=== PATIENT | female | born 1945 | race American Indian/Alaskan Native ===

== ENCOUNTER 2016-11-07 14:46 | Inpatient (IN) | payer MEDICARE ==
[2016-11-07] MEDS ORDERED: DUONEB *Not for PRN Use IH ONE (16:09)
[2016-11-07 16:43] LABS: Basophils % (Auto) 0.3 % (0.0-1.8); Eosinophils % (Auto) 0.1 % (0.0-4.3); Hematocrit 30.8 % (30.3-42.9); Hemoglobin 10.2 gm/dl (10.1-14.3); Mean Corpuscular HGB Conc 33 % (30-34); Mean Corpuscular Hemoglobin 32 pg (28-32); Mean Corpuscular Volume 97 fl (79-97); Platelet Count 182 K/mm3 (140-440); Red Blood Count 3.18 M/mm3 (3.65-5.03); Red Cell Distribution Width 14.2 % (13.2-15.2); White Blood Count 6.1 K/mm3 (4.5-11.0)
[2016-11-07 16:53] LABS: Bilirubin,Urine NEG (Negative); Blood,Urine SM (Negative); Ketones,Urine NEG (Negative); Leukocyte Esterase,Urine NEG (Negative); Nitrite,Urine NEG (Negative); Urobilinogen,Urine < 2.0 mg/dL (<2.0)
[2016-11-07 16:55] LABS: BUN/Creatinine Ratio 14.37; Calcium 9.3 mg/dL (8.4-10.2)
[2016-11-07 16:56] LABS: Chloride 103.5 mmol/L (98-107); Potassium 4.9 mmol/L (3.6-5.0)
[2016-11-07 17:05] LABS: RBC,Urine < 1.0 /HPF (0.0-6.0)
[2016-11-07] MEDS ORDERED: PROVENTIL IH ONE (17:50)
--- NOTE | 2016-11-07 18:00 | XRay Report ---
FINAL REPORT EXAM: XR CHEST 1V AP HISTORY: sob TECHNIQUE: Single-view chest PRIORS: None. FINDINGS: Lung volumes are diminished. There is subtle asymmetric increased opacity in the right upper lobe. The heart is enlarged. No acute osseous abnormality is identified. IMPRESSION: 1. Cardiomegaly. This may be exaggerated by diminished lung volumes. 2. There is subtle asymmetric increased opacity in the right upper lobe. This could be secondary to overlapping osseous structures, but underlying infiltrate or other pulmonary lesion is not excluded. This can be further assessed with CT of the chest.
--- NOTE | 2016-11-07 18:20 | Nuclear Medicine Report ---
FINAL REPORT PROCEDURE: Nuclear medicine ventilation and perfusion lung scan. TECHNIQUE: Ventilation imaging was done in the posterior projection using 15 millicuries of xenon 133 gas. Perfusion imaging was done in multiple projections using 5 millicuries of technetium 99 M maa. HISTORY: Shortness of breath, elevated D-dimer. COMPARISON: Comparison chest radiograph 11/07/2016. FINDINGS: The technologist reports that the patient was extremely short of breath and did not breathe well on the ventilation portion of the test. The ventilation images are limited. There is grossly symmetrical ventilation with no obvious trapping of xenon gas. The perfusion images are only mildly inhomogeneous. There are no significant perfusion defects identified. The scanned carries a very low probability for pulmonary embolism. IMPRESSION: Limited study. Very low probability of pulmonary embolism.
[2016-11-07] MEDS ORDERED: MAGNESIUM SULFATE 2GM/50ML 2 GM/50 ML BAG IV ONE (18:24)
[2016-11-07 18:25] LABS: ISTAT Base Excess -10; ISTAT HCO3 15.6; ISTAT PH 7.371 (7.35-7.45); ISTAT PO2 124 (80-105); ISTAT SO2 99; ISTAT TCO2 16
[2016-11-07] MEDS ORDERED: HEPARIN 10,000 UNITS/10 ML IV ONE (18:29)
[2016-11-07] MEDS ORDERED: LASIX IV ONE ×2 (18:29→19:23)
--- NOTE | 2016-11-07 18:35 | Emergency Department Report ---
HPI - General Chief Complaint: Nausea/Vomiting/Diarrhea Time Seen by Provider: 11/07/16 15:58 - HPI HPI: This is a 70-year-old Afro-Indian female presents the emergency department by EMS from her home by EMS with complaint of 2 days of diarrhea and possible dehydration. She has home health care but [facility] in for evaluation. Once the patient got here she appeared to have some shortness of breath and was noticed to have lower extremity swelling. The patient does admit to shortness of breath but denies any chest pain, fever, nausea or vomiting. She appears to have a past medical history of CVA, diabetes and hypertension. She was not given anything for symptoms prior to presentation or in route. She denies any abdominal pain but does admit to the loose stool. ED Past Medical Hx - Past Medical History Previous Medical History?: Yes Hx Hypertension: Yes Hx Asthma: No Hx COPD: No Hx Dementia: Yes - Surgical History Past Surgical History?: Yes Additional Surgical History: Hysterectomy - Social History Smoking Status: Never Smoker Substance Use Type: None - Medications Home Medications: Home Medications Medication Instructions Recorded Confirmed Last Taken Type Alendronate Sodium 70 mg PO QWEEK 02/25/15 02/25/15 02/18/15 History Aspirin BABY CHEW TAB 81 mg PO DAILY 02/25/15 02/25/15 02/24/15 History Calcium + Vitamin D3 Gummies 600 mg PO DAILY 02/25/15 02/25/15 02/24/15 History Carvedilol 25 mg PO BID 02/25/15 02/25/15 02/25/15 History Hydralazine HCl 50 mg PO TID 02/25/15 02/25/15 02/25/15 History Memantine (Nf) [Namenda (Nf)] 10 mg PO DAILY 02/25/15 02/25/15 02/25/15 History Potassium Chloride [Klor-Con M20] 20 meq PO DAILY 02/25/15 02/25/15 02/25/15 History Simvastatin 20 mg PO DAILY 02/25/15 02/25/15 02/24/15 History Valsartan 320 mg PO DAILY 02/25/15 02/25/15 02/25/15 History amLODIPine 10 mg PO DAILY 02/25/15 02/25/15 02/25/15 History traMADol [Ultram] 50 mg PO Q4HR PRN #12 tablet 03/25/16 Unknown Rx ED Review of Systems ROS: Stated complaint: DIARRHEA Other details as noted in HPI Comment: All other systems reviewed and negative Constitutional: denies: chills, fever Eyes: denies: eye pain, eye discharge, vision change ENT: denies: ear pain, throat pain Respiratory: shortness of breath. denies: cough Cardiovascular: edema. denies: chest pain Gastrointestinal: diarrhea. denies: abdominal pain Genitourinary: denies: urgency, dysuria, discharge Musculoskeletal: denies: back pain, joint swelling, arthralgia Skin: denies: rash, lesions Neurological: denies: headache, weakness, paresthesias Physical Exam - Physical Exam Vital Signs: Vital Signs 11/07/16 11/07/16 11/07/16 15:29 15:31 15:41 Temperature Pulse Rate 126 H 118 H Pulse Rate [ Posterior Bilateral Throughout] Respiratory 27 H 24 Rate Respiratory Rate [Posterior Bilateral Throughout] Blood Pressure 149/92 149/92 Blood Pressure [Left] O2 Sat by Pulse 94 93 99 Oximetry 11/07/16 11/07/16 11/07/16 15:43 15:45 15:51 Temperature 97.9 F Pulse Rate 123 H 117 H Pulse Rate [ Posterior Bilateral Throughout] Respiratory 18 20 34 H Rate Respiratory Rate [Posterior Bilateral Throughout] Blood Pressure 149/92 Blood Pressure 142/92 [Left] O2 Sat by Pulse 95 95 99 Oximetry 11/07/16 11/07/16 11/07/16 16:01 16:11 16:21 Temperature Pulse Rate 119 H 120 H 118 H Pulse Rate [ Posterior Bilateral Throughout] Respiratory 31 H 29 H 31 H Rate Respiratory Rate [Posterior Bilateral Throughout] Blood Pressure 149/92 149/92 149/92 Blood Pressure [Left] O2 Sat by Pulse 98 98 97 Oximetry 11/07/16 11/07/16 11/07/16 16:31 16:37 17:04 Temperature Pulse Rate 118 H Pulse Rate [ 119 H 124 H Posterior Bilateral Throughout] Respiratory 29 H Rate Respiratory 18 18 Rate [Posterior Bilateral Throughout] Blood Pressure 149/92 Blood Pressure [Left] O2 Sat by Pulse 98 Oximetry 11/07/16 18:15 Temperature Pulse Rate Pulse Rate [ 122 H Posterior Bilateral Throughout] Respiratory Rate Respiratory 24 Rate [Posterior Bilateral Throughout] Blood Pressure Blood Pressure [Left] O2 Sat by Pulse Oximetry Physical Exam: GENERAL: The patient is well-developed well-nourished. HEENT: Normocephalic. Atraumatic. Extraocular motions are intact. Patient has moist mucous membranes. Pupils equal reactive to light bilaterally. NECK: Supple. Trach is midline. CHEST/LUNGS: Coarse breath sounds without chest. There is tachypnea but no accessory muscle use. There is no respiratory distress noted. HEART/CARDIOVASCULAR: Regular. There is mild tachycardia there is no gallop rub or murmur. ABDOMEN: Abdomen is soft, nontender. Patient has normal bowel sounds. There is no abdominal distention. SKIN: There is 2-3+ pitting edema to the bilateral lower extremities worst in the distal portions. NEURO: The patient is awake, alert. The patient is cooperative. There are no motor or sensory deficits seen. Patient follows commands. Withdraws to painful stimuli. There is some difficulty speaking or slurred speech but the patient says it's because she does not have any teeth or denture in place and patient is able to verbalize and/or express herself. MUSCULOSKELETAL: There is no tenderness or deformity. There is no limitation range of motion. There is no evidence of acute injury. Radial pulse was 2 over 4 bilaterally. ED Course Vital Signs 11/07/16 11/07/16 11/07/16 15:29 15:31 15:41 Temperature Pulse Rate 126 H 118 H Pulse Rate [ Posterior Bilateral Throughout] Respiratory 27 H 24 Rate Respiratory Rate [Posterior Bilateral Throughout] Blood Pressure 149/92 149/92 Blood Pressure [Left] O2 Sat by Pulse 94 93 99 Oximetry 11/07/16 11/07/16 11/07/16 15:43 15:45 15:51 Temperature 97.9 F Pulse Rate 123 H 117 H Pulse Rate [ Posterior Bilateral Throughout] Respiratory 18 20 34 H Rate Respiratory Rate [Posterior Bilateral Throughout] Blood Pressure 149/92 Blood Pressure 142/92 [Left] O2 Sat by Pulse 95 95 99 Oximetry 11/07/16 11/07/16 11/07/16 16:01 16:11 16:21 Temperature Pulse Rate 119 H 120 H 118 H Pulse Rate [ Posterior Bilateral Throughout] Respiratory 31 H 29 H 31 H Rate Respiratory Rate [Posterior Bilateral Throughout] Blood Pressure 149/92 149/92 149/92 Blood Pressure [Left] O2 Sat by Pulse 98 98 97 Oximetry 07/11/07/16 11/07/16 16:31 16:37 17:04 Temperature Pulse Rate 118 H Pulse Rate [ 119 H 124 H Posterior Bilateral Throughout] Respiratory 29 H Rate Respiratory 18 18 Rate [Posterior Bilateral Throughout] Blood Pressure 149/92 Blood Pressure [Left] O2 Sat by Pulse 98 Oximetry 11/07/16 18:15 Temperature Pulse Rate Pulse Rate [ 122 H Posterior Bilateral Throughout] Respiratory Rate Respiratory 24 Rate [Posterior Bilateral Throughout] Blood Pressure Blood Pressure [Left] O2 Sat by Pulse Oximetry - Reevaluation(s) Reevaluation #1: Patient is having worsening respiratory status. Given Lasix for for him overload. Given Solu-Medrol and magnesium. She was placed on a Ventimask but now will be placed on a BiPAP. If she does not improve then she may need intubation. Admitting hospitalist is aware 11/07/16 18:40 - ABG Interpretation Ph: [phone] PCO2: 27 PO2: 63 Bicarbonate: 15 Interpretation: respiratory alkalosis, metabolic acidosis, other (hypoxemia) ED Medical Decision Making - Lab Data Result diagrams: 11/08/16 06:45 11/08/16 06:45 - EKG Data -: EKG Interpreted by Me EKG shows normal: sinus rhythm, axis (left axis deviation), intervals, QRS complexes (LVH), ST-T waves (nonspecific ST-T waves) Rate: tachycardia (119 bpm) - EKG Data When compared to previous EKG there are: previous EKG unavailable Interpretation: other (sinus tachycardia with PVCs, left axis deviation, LVH, nonspecific ST-T changes) 11/07/16 18:35 Repeat EKG at 1826 shows sinus tachycardia at 123 bpm, left axis deviation, LVH , there is some slight ST depressions to the lateral leads. There is some changes in the fact that QRS is now up and V4 and V6 when it was previously pointed down. - Radiology Data Radiology results: report reviewed, image reviewed interpreted by me: Chest x-ray shows some cardiomegaly and pulmonary vascular congestion. Ventilation perfusion scan is negative or low probability for pulmonary embolism. - Medical Decision Making This is a 70-year-old female who originally was brought in either from a personal fpc or from her home with some home health care but she was brought in urgently with the complaint of some generalized weakness and diarrhea. Once the patient got to the emergency department she showed some signs of volume overload and mild shortness of breath. However during the patient's ED course she appeared to become more short of breath and eventually began appearing to have some respiratory distress. The patient's labs showed some abnormalities with a low CO2 level, significantly elevated troponin, renal insufficiency/failure, elevated BNP levels. ABG shows respiratory alkalosis with metabolic acidosis with some hypoxia/hypoxemia. Patient has never been here before to compare her labs or EKG. EKG shows a sinus tachycardia with PVCs , nonspecific T-wave changes, LVH but does not appear to have a morphology consistent with ST elevation MA. The patient was placed on nasal cannula upon arrival but upon return from the VQ scan she appeared more short of breath so she was placed on a Venturi mask. She never had any hypoxia but she still continued to have increased work of breathing so the patient was then placed on a BiPAP machine. Chest x-ray shows volume overload. VQ scan did not show any signs of pulmonary embolism or at least was low probability. Patient received IV Lasix push and eventually was started on a nitroglycerin drip. I spoke to the hospitalist and the patient was admitted to the ICU. While the patient was still in the emergency department the rest of case was signed out to my colleague, Dr Berger, who was gracious enough to speak with cardiology and the torch shearer who accepted the patient's plan for admission to the ICU and supportive care. Patient was placed on heparin second or 2 the elevated troponin. - Differential Diagnosis MA, PE, CHF, pneumonia Critical Care Time: Yes Critical care time in (mins) excluding proc time.: 35 Critical care attestation.: If time is entered above; I have spent that time in minutes in the direct care of this critically ill patient, excluding procedure time. Critical care time was spent on this patient and during her initial evaluation, multiple re- evaluations, titration of oxygen support from nasal cannula to Venturi mask to BiPAP, ordering and interpretation of labs, ordering and interpretation of imaging, and disposition planning and conversation with hospitalist service. Critical Care Time: 35 mins ED Disposition Clinical Impression: NSTEMI (non-ST elevated myocardial infarction), Acute pulmonary edema, CKD ( chronic kidney disease) stage 4, GFR 15-29 ml/min Acute respiratory failure Qualifiers: Respiratory failure complication: hypoxia Qualified Code(s): J96.01 - Acute respiratory failure with hypoxia Disposition: DC-09 OP ADMIT IP TO THIS HOSP Is pt being admited?: Yes Condition: Serious
[2016-11-07] MEDS ORDERED: LEVAQUIN 750MG/150ML 750 MG/150 ML BAG IV ONE (18:47)
[2016-11-07 18:50] LABS: INR 0.99 (0.87-1.13)
[2016-11-07 18:51] LABS: Partial Thromboplastin Time 34.7 Sec. (24.2-36.6)
[2016-11-07] MEDS ORDERED: HEPARIN/ 0.45% NACL-25,000 UNIT/500 ML 25,000 UNIT/500 ML BAG IV SCH (19:00)
[2016-11-07] MEDS: TRIDIL DRIP 50MG/250ML 50 MG/250 ML BOTTLE IV SCH (19:02)
--- NOTE | 2016-11-07 19:26 | Event Note ---
Date: 11/07/16 Received signout from physician, Dr. Bey. Patient's laboratory studies, radiology studies reviewed, and addition to EKG, and aphysical examination. I am concerned that the patient has either cardiorenal syndrome, or decompensated congestive heart failure at this time. The patient is currently on BiPAP therapy. Nitroglycerin drip has been ordered, and at my verbal instruction, the nurse gave a post of 300 g nitroglycerin. The case is discussed with the Critical care physician, Dr. Heller, who agrees with placement to the intensive care unit. The case is discussed with the light armored vehicle officer on-call, Dr. Dean, and the patient' s laboratory studies, x-ray of chest, EKG, and physical exam findings have been discussed with him, and he agrees with placement into the intensive care unit, agrees with supportive care, and recommends nephrology consult. The case is discussed with nephrology on-call, Dr. Butt, who agrees with current plan, recommends Lasix, 60 mg twice daily, recommends an additional 40 mg of Lasix now, and agrees to follow as a consult. Vital Signs 11/07/16 11/07/16 11/07/16 15:29 15:31 15:41 Temperature Pulse Rate 126 H 118 H Pulse Rate [ Posterior Bilateral Throughout] Respiratory 27 H 24 Rate Respiratory Rate [Posterior Bilateral Throughout] Blood Pressure 149/92 149/92 Blood Pressure [Left] O2 Sat by Pulse 94 93 99 Oximetry 11/07/16 11/07/16 11/07/16 15:43 15:45 15:51 Temperature 97.9 F Pulse Rate 123 H 117 H Pulse Rate [ Posterior Bilateral Throughout] Respiratory 18 20 34 H Rate Respiratory Rate [Posterior Bilateral Throughout] Blood Pressure 149/92 Blood Pressure 142/92 [Left] O2 Sat by Pulse 95 95 99 Oximetry 11/07/16 11/07/16 11/07/16 16:01 16:11 16:21 Temperature Pulse Rate 119 H 120 H 118 H Pulse Rate [ Posterior Bilateral Throughout] Respiratory 31 H 29 H 31 H Rate Respiratory Rate [Posterior Bilateral Throughout] Blood Pressure 149/92 149/92 149/92 Blood Pressure [Left] O2 Sat by Pulse 98 98 97 Oximetry 11/07/16 11/07/16 11/07/16 16:31 16:37 16:41 Temperature Pulse Rate 118 H 127 H Pulse Rate [ 119 H Posterior Bilateral Throughout] Respiratory 29 H 33 H Rate Respiratory 18 Rate [Posterior Bilateral Throughout] Blood Pressure 149/92 159/87 Blood Pressure [Left] O2 Sat by Pulse 98 99 Oximetry 11/07/16 11/07/16 11/07/16 16:51 17:01 17:04 Temperature Pulse Rate 124 H 126 H Pulse Rate [ 124 H Posterior Bilateral Throughout] Respiratory 29 H 28 H Rate Respiratory 18 Rate [Posterior Bilateral Throughout] Blood Pressure 159/87 163/83 Blood Pressure [Left] O2 Sat by Pulse 98 96 Oximetry 11/07/16 11/07/16 11/07/16 17:11 17:53 18:00 Temperature Pulse Rate 121 H 123 H Pulse Rate [ Posterior Bilateral Throughout] Respiratory 27 H 26 H Rate Respiratory Rate [Posterior Bilateral Throughout] Blood Pressure 163/83 163/83 166/103 Blood Pressure [Left] O2 Sat by Pulse 98 96 98 Oximetry 11/07/16 11/07/16 11/07/16 18:11 18:15 18:21 Temperature Pulse Rate 121 H 130 H Pulse Rate [ 122 H Posterior Bilateral Throughout] Respiratory 28 H 40 H Rate Respiratory 24 Rate [Posterior Bilateral Throughout] Blood Pressure 166/103 163/83 Blood Pressure [Left] O2 Sat by Pulse 99 100 Oximetry 11/07/16 11/07/16 11/07/16 18:31 18:41 18:45 Temperature Pulse Rate 139 H 126 H Pulse Rate [ 124 H Posterior Bilateral Throughout] Respiratory 35 H 34 H Rate Respiratory 26 H Rate [Posterior Bilateral Throughout] Blood Pressure 160/88 160/88 Blood Pressure [Left] O2 Sat by Pulse 98 97 Oximetry 11/07/16 11/07/16 11/07/16 18:51 18:52 19:21 Temperature Pulse Rate 121 H 119 H 121 H Pulse Rate [ Posterior Bilateral Throughout] Respiratory 36 H 36 H 29 H Rate Respiratory Rate [Posterior Bilateral Throughout] Blood Pressure 160/88 160/88 159/67 Blood Pressure [Left] O2 Sat by Pulse 97 98 99 Oximetry Lab Results 11/07/16 11/07/16 11/07/16 Range/Units 16:00 16:35 16:35 WBC 6.1 (4.5-11.0) K/mm3 RBC 3.18 L (3.65-5.03) M/mm3 Hgb 10.2 (10.1-14.3) gm/dl Hct 30.8 (30.3-42.9) % MCV 97 (79-97) fl MCH 32 (28-32) pg MCHC 33 (30-34) % RDW 14.2 (13.2-15.2) % Plt Count 182 (140-440) K/mm3 Lymph % (Auto) 23.6 (13.4-35.0) % Stokes % (Auto) 8.2 H (0.0-7.3) % Eos % (Auto) 0.1 (0.0-4.3) % Baso % (Auto) 0.3 (0.0-1.8) % Lymph # 1.4 (1.2-5.4) K/mm3 Stokes # 0.5 (0.0-0.8) K/mm3 Eos # 0.0 (0.0-0.4) K/mm3 Baso # 0.0 (0.0-0.1) K/mm3 Seg Neutrophils % 67.8 (40.0-70.0) % Seg Neutrophils # 4.1 (1.8-7.7) K/mm3 PT (12.2-14.9) Sec. INR (0.87-1.13) APTT (24.2-36.6) Sec. D-Dimer (0-234) ng/mlDDU POC ABG pH (7.35-7.45) POC ABG pCO2 (35-45) POC ABG pO2 (80-105) POC ABG HCO3 POC ABG Total CO2 POC ABG O2 Sat POC ABG Base Excess FiO2 % Sodium 138 (137-145) mmol/L Potassium 4.9 (3.6-5.0) mmol/L Chloride 103.5 (98-107) mmol/L Carbon Dioxide 16 L (22-30) mmol/L Anion Gap 23 mmol/L BUN 46 H (7-17) mg/dL Creatinine 3.2 H (0.7-1.2) mg/dL Estimated GFR 17 ml/min BUN/Creatinine Ratio 14.37 % Glucose 101 H (65-100) mg/dL Lactic Acid (0.7-2.0) mmol/L Calcium 9.3 (8.4-10.2) mg/dL Troponin T (0.00-0.029) ng/mL NT-Pro-B Natriuret Pep (0-900) pg/mL Triglycerides (2-149) mg/dL Cholesterol (50-199) mg/dL LDL Cholesterol Direct (50-130) mg/dL HDL Cholesterol (40-59) mg/dL Cholesterol/HDL Ratio % Urine Color Crystal (Yellow) Urine Turbidity Cloudy (Clear) Urine pH 5.0 (5.0-7.0) Ur Specific Nebo 1.019 (1.003-1.030) Urine Protein 100 mg/dl (Negative) mg/dL Urine Glucose (UA) Neg (Negative) mg/dL Urine Ketones Neg (Negative) mg/dL Urine Blood Sm (Negative) Urine Nitrite Neg (Negative) Urine Bilirubin Neg (Negative) Urine Urobilinogen < 2.0 (<2.0) mg/dL Ur Leukocyte Esterase Neg (Negative) Urine WBC (Auto) 3.0 (0.0-6.0) /HPF Urine RBC (Auto) < 1.0 (0.0-6.0) /HPF 11/07/16 11/07/16 11/07/16 Range/Units 16:35 16:35 16:35 WBC (4.5-11.0) K/mm3 RBC (3.65-5.03) M/mm3 Hgb (10.1-14.3) gm/dl Hct (30.3-42.9) % MCV (79-97) fl MCH (28-32) pg MCHC (30-34) % RDW (13.2-15.2) % Plt Count (140-440) K/mm3 Lymph % (Auto) (13.4-35.0) % Stokes % (Auto) (0.0-7.3) % Eos % (Auto) (0.0-4.3) % Baso % (Auto) (0.0-1.8) % Lymph # (1.2-5.4) K/mm3 Stokes # (0.0-0.8) K/mm3 Eos # (0.0-0.4) K/mm3 Baso # (0.0-0.1) K/mm3 Seg Neutrophils % (40.0-70.0) % Seg Neutrophils # (1.8-7.7) K/mm3 PT (12.2-14.9) Sec. INR (0.87-1.13) APTT (24.2-36.6) Sec. D-Dimer 1575.53 H (0-234) ng/mlDDU POC ABG pH (7.35-7.45) POC ABG pCO2 (35-45) POC ABG pO2 (80-105) POC ABG HCO3 POC ABG Total CO2 POC ABG O2 Sat POC ABG Base Excess FiO2 % Sodium (137-145) mmol/L Potassium (3.6-5.0) mmol/L Chloride (98-107) mmol/L Carbon Dioxide (22-30) mmol/L Anion Gap mmol/L BUN (7-17) mg/dL Creatinine (0.7-1.2) mg/dL Estimated GFR ml/min BUN/Creatinine Ratio % Glucose (65-100) mg/dL Lactic Acid (0.7-2.0) mmol/L Calcium (8.4-10.2) mg/dL Troponin T 6.900 H* (0.00-0.029) ng/mL NT-Pro-B Natriuret Pep 12460 H (0-900) pg/mL Triglycerides 69 (2-149) mg/dL Cholesterol 129 (50-199) mg/dL LDL Cholesterol Direct 56 (50-130) mg/dL HDL Cholesterol 60 H (40-59) mg/dL Cholesterol/HDL Ratio 2.15 % Urine Color (Yellow) Urine Turbidity (Clear) Urine pH (5.0-7.0) Ur Specific Nebo (1.003-1.030) Urine Protein (Negative) mg/dL Urine Glucose (UA) (Negative) mg/dL Urine Ketones (Negative) mg/dL Urine Blood (Negative) Urine Nitrite (Negative) Urine Bilirubin (Negative) Urine Urobilinogen (<2.0) mg/dL Ur Leukocyte Esterase (Negative) Urine WBC (Auto) (0.0-6.0) /HPF Urine RBC (Auto) (0.0-6.0) /HPF 11/07/16 11/07/16 11/07/16 Range/Units 16:35 18:14 18:49 WBC (4.5-11.0) K/mm3 RBC (3.65-5.03) M/mm3 Hgb (10.1-14.3) gm/dl Hct (30.3-42.9) % MCV (79-97) fl MCH (28-32) pg MCHC (30-34) % RDW (13.2-15.2) % Plt Count (140-440) K/mm3 Lymph % (Auto) (13.4-35.0) % Stokes % (Auto) (0.0-7.3) % Eos % (Auto) (0.0-4.3) % Baso % (Auto) (0.0-1.8) % Lymph # (1.2-5.4) K/mm3 Stokes # (0.0-0.8) K/mm3 Eos # (0.0-0.4) K/mm3 Baso # (0.0-0.1) K/mm3 Seg Neutrophils % (40.0-70.0) % Seg Neutrophils # (1.8-7.7) K/mm3 PT 13.0 (12.2-14.9) Sec. INR 0.99 (0.87-1.13) APTT 34.7 (24.2-36.6) Sec. D-Dimer (0-234) ng/mlDDU POC ABG pH 7.371 (7.35-7.45) POC ABG pCO2 27.0 L (35-45) POC ABG pO2 124 H (80-105) POC ABG HCO3 15.6 POC ABG Total CO2 16 POC ABG O2 Sat 99 POC ABG Base Excess -10 FiO2 35 % Sodium (137-145) mmol/L Potassium (3.6-5.0) mmol/L Chloride (98-107) mmol/L Carbon Dioxide (22-30) mmol/L Anion Gap mmol/L BUN (7-17) mg/dL Creatinine (0.7-1.2) mg/dL Estimated GFR ml/min BUN/Creatinine Ratio % Glucose (65-100) mg/dL Lactic Acid 1.80 (0.7-2.0) mmol/L Calcium (8.4-10.2) mg/dL Troponin T (0.00-0.029) ng/mL NT-Pro-B Natriuret Pep (0-900) pg/mL Triglycerides (2-149) mg/dL Cholesterol (50-199) mg/dL LDL Cholesterol Direct (50-130) mg/dL HDL Cholesterol (40-59) mg/dL Cholesterol/HDL Ratio % Urine Color (Yellow) Urine Turbidity (Clear) Urine pH (5.0-7.0) Ur Specific Nebo (1.003-1.030) Urine Protein (Negative) mg/dL Urine Glucose (UA) (Negative) mg/dL Urine Ketones (Negative) mg/dL Urine Blood (Negative) Urine Nitrite (Negative) Urine Bilirubin (Negative) Urine Urobilinogen (<2.0) mg/dL Ur Leukocyte Esterase (Negative) Urine WBC (Auto) (0.0-6.0) /HPF Urine RBC (Auto) (0.0-6.0) /HPF
[2016-11-07] MEDS ORDERED: VITAMIN D3 GUMMIES PO SCH (21:15)
[2016-11-07] MEDS ORDERED: CALCIUM PO SCH (21:15)
[2016-11-07] MEDS ORDERED: MILK OF MAGNESIA PO PRN (21:22)
[2016-11-07] MEDS ORDERED: ZOFRAN IV PRN (21:22)
[2016-11-07] MEDS ORDERED: TYLENOL PO PRN (21:22)
[2016-11-07] MEDS ORDERED: DULCOLAX PR PRN (21:22)
[2016-11-07] MEDS ORDERED: DUONEB *Not for PRN Use IH (21:34)
[2016-11-07] MEDS ORDERED: PROVENTIL IH PRN (21:40)
[2016-11-07 22:26] LABS: Creatine Kinase MB 268.6 ng/mL (0.0-4.0)
[2016-11-07] MEDS: NORVASC PO SCH (22:42)
[2016-11-07] MEDS: COREG PO SCH (22:45)
[2016-11-07] MEDS: ZOCOR PO SCH (22:46)
[2016-11-07] MEDS: HEPARIN SUB-Q SCH (22:47)
[2016-11-07] MEDS: K-DUR PO SCH (22:52)
[2016-11-07] MEDS: ZOSYN/NS 2.25 GM/50ML 2.25 GM/50 ML BAG IV SCH (23:13)
[2016-11-08] MEDS: TRIDIL DRIP 50MG/250ML 50 MG/250 ML BOTTLE IV SCH ×3 (01:00→10:01)
[2016-11-08] MEDS: DUONEB *Not for PRN Use IH SCH ×5 (02:10→20:34)
--- NOTE | 2016-11-08 02:26 | Admit Criteria Form ---
Admission Criteria Documentation: PULMONARY DISEASE GRG Clinical Indications for Admission to Inpatient Care ( Place 'X' for any and all applicable criteria): Hospital admission is needed for appropriate care of the patient because of 1 or more of the following(1)(2): [ ]I. Impending or actual respiratory arrest. See Respiratory Failure GRG guideline for severe respiratory disease and long-term mechanical ventilation patients. (3)(4) (5) [ ]II. Severe airflow or ventilation abnormalities (not responsive to emergency and observation care treatment as appropriate) as indicated by 1 or more of the following (6)(7)(8)(9) : [ ]a) PCO2 greater than 42 mm Hg (5.6 kPa) and pH less than 7.35 (new) [ ]b) Documented PCO2 increased more than 5 mm Hg (0.7 kPa) from disease baseline [ ]c) Airflow measurements[A] less than 60% of previous best or predicted (eg, peak expiratory flow rate less than 300 L/min) despite intensive emergent treatment(B) [ ]d) Required respiratory treatments that are performable only in acute inpatient setting [ X]III. Severe respiratory findings (not responsive to emergency and observation care treatment as appropriate) including 1 or more of the following(6)(9)(10): [X ]a) Respiratory distress as indicated by ALL of the following(6)(11) : [X ]i) Patient with 1 or more of the following: [ X]1) Dyspnea (difficulty breathing) [ ]2) Tachypnea [ ]3) Abnormal breathing pattern (eg, chest retractions) [ ]4) Other evidence of difficulty breathing [ X]ii) Evidence of respiratory compromise indicated by 1 or more of the following: [ ]1) Hypoxemia [ ]2) Altered mental status [X ]3) Other evidence of respiratory compromise (eg, pulmonary edema on chest x-ray) [ ]b) Stridor [ ]c) Gross hemoptysis(12) [ ]d) Acute cyanosis [ ]IV. Chronic lung disease with severe deterioration (not responsive to emergency and observation care treatment as appropriate) as indicated by 1 or more of the following(7) (13): [ ]a) SaO2 5% below baseline in patient with chronic hypoxemia [ ]b) New requirement for supplemental oxygen to keep SaO2 at baseline or acceptable level [ ]c) Required supplemental oxygen performable only in acute inpatient setting [ ]d) Severe airflow or ventilation abnormalities [ ]e) Previouslymobile patient unable to walk between rooms [ ]f) Inability to eat or sleep due to dyspnea [ ]g) Altered mental status that is severe or persistent [ ]V. Empyema or lung abscess(14)(15) [ ]Vl. Severe atelectasis or lung collapse(16)(17) [ ]Diane. Tuberculosis requiring inpatient treatment as indicated by 1 or more of the following(18)(19)(20)(21): [ ]a) Diagnosis suspected (eg, symptomatic patient from endemic area or in high-risk population, with abnormal chest imaging) and cannot be ruled out within observation care timeframe (ie, sputum analysis, nucleic acid amplification techniques not rapidly available or not diagnostic) [ ]b) Severely symptomatic patient (eg, Hypoxemia, Hemodynamic instability, Tachypnea) [ ]c) Mlwic-sycq-abxxiyjzo infection suspected in newly diagnosed patient (eg, treatment regimen may require near-term adjustment) [ ]d) Newly diagnosed patient at high-risk of short-term deterioration (eg, HIV positive, frail, immunocompromised, chronic lung disease) [ ]e) High infectivity suspected (eg, laryngeal disease, cavitary pulmonary lesions, ongoing positivity of sputum) and 1 or more of the following: [ ]i) Unexposed household contacts at high risk (eg, immunocompromised, elderly, infants, chronic lung disease) [ ]ii) Patient unable or unwilling to avoid exposing others (eg, significant psychiatric disease, substance abuse, developmental disability) [ ]f) Complication of tuberculosis requiring inpatient treatment (eg , constrictive pericarditis, tubercular meningitis) [ ]g) Hospitalization mandated by public health authority (eg, patient continually noncompliant with directly observed therapy) [ ]VIII. High-risk pulmonary infection as indicated by 1 or more of the following(22)(23)(24)(25): [ ]a) Temperature less than 95 degrees F (35 degrees C) or greater than 103.1 degrees F (39.5 degrees C) [ ]b) Hemodynamic instability [ ]c) Immunocompromised patient (eg, AIDS, post transplant, neutropenic)(26)(27) [ ]d) History of severe COPD(28) [ ]e) History of severely symptomatic congestive heart failure(29) [ ]f) Other high-risk comorbidity (eg, poorly controlled diabetes, cirrhosis, chronic renal insufficiency) [ ]g) Hypoxemia [ ]h) severe stridor (30) [ ]i) Outpatient, observation, or recovery facility therapy has failed, is not appropriate, or is not feasible. [ ]IX. Complications of tracheostomy that remains after emergency or observation level care(31)(32)(33)(34) [ ]X. Respiratory complications of organ transplant (eg, rejection, respiratory failure, respiratory infection)(27) [ ]XI. Severe pulmonary arterial hypertension or pulmonary vascular disease requiring inpatient care indicated by 1 or more of the following(35)(36)(37)(38): [ ]a) Initiation or change of vasodilators (IV, subcutaneous, or inhaled) or other vasoactive medications needed [ ]b) IV anticoagulation needed (eg, immediate anticoagulation necessary, alternatives not appropriate) [ ]c) Arterial or pulmonary artery catheter monitoring needed due to infusion or other treatment [ ]XII. Cystic fibrosis requiring inpatient care as indicated by 1 or more of the following(39)(40): [ ]a) Severe exacerbation that does not respond to intensified home therapy(41) [ ]b) Severe exacerbation with patient unable to perform prescribed treatments at home [ ]c) Pneumonia [ ]d) Pneumothorax(42) [ ]e) Atelectasis [ ]f) Hemoptysis(43) [ ]XIII. Bronchiectasis requiring inpatient care as indicated by 1 or more of the following(44)(45): [ ]a) Respiratory distress [ ]b) Severe exacerbation and outpatient or observation care therapy has failed, is not appropriate, or is not feasible. [ ]XIV. Sarcoidosis requiring inpatient care as indicated by 1 or more of the following(46)(47)(48): [ ]a) Respiratory distress [ ]b) Cardiac involvement with arrhythmia(49) [ ]c) Outpatient or observation care therapy has failed, is not appropriate, or is not feasible. [ ]XV. Intestitial lung disease requiring inpatient care as indicated by 1 or more of the following(50)(51): [ ]a) Respiratory distress [ ]b) Severe exacerbation and outpatient or observation care therapy has failed, is not appropriate, or is not feasible [ ]XVI. Allergic pneumonitis requiring inpatient care as indicated by 1 or more of the following(52): [ ]a) Respiratory distress [ ]b) Acute eosinophilic pneumonia [ ]c) [place] with cardiac involvement [ ]d) Outpatient or observation care therapy has failed, is not appropriate, or is not feasible [ ]XVIl. Severe right heart failure requiring inpatient care as indicated by 1 or more of the following(35)(53)(54): [ ]a) Respiratory distress [ ]b) Debilitating anasarca that remains after emergency or observation level care (eg, tissue [ ]c) breakdown with severe infection, inability to void due to edema) [C](41)(42)(43)(44) [ ]d) Hemodynamic instability [ ]e) Syncope [ ]f) Angina that requires inpatient care (eg, not treatable in emergency or observation level of care) [ ]g) Increasing organ failure (eg, liver congestion with significant and worsening or new elevation of transaminases) [ ]XVIll. Injury requiring inpatient care (medical) as indicated by 1 or more of the following(59)(60)(61) [ ]a) Significant inhalation injury (eg, smoke inhalation, other toxic inhalation)(62)(63)(64) [ ]b) Airway obstruction that remains or is unstable after emergency or observation level care(65)(66) [ ]c) Severe pain requiring acute inpatient management [ ]d) Lung contusion(67) [ ]e) Flail chest(68) [ ]f) Bronchial tree injury [ ]g) Air or fat emboli [ ]h) Other injury not treatable in emergency or observation level care (eg, hemothorax)(55) [ ]XlX. Pulmonary hemorrhage or significant hemoptysis(12)(43)(69) [ ]XXl. Complications of transplanted lung indicated by 1 or more of the following(70)(71) [ ]a) Acute graft rejection requiring inpatient management (eg, intravenous immunosuppression)(72)(73)(74) [ ]b) Failure of transplant lung as indicated by 1 or more of the following(75)(76): [ ]i) Anastomotic leak [ ]ii) Airway ischemia or necrosis [ ]iii) Airway fistula [ ]iv) Obstructing granulation tissue requiring intervention [ ]v) Bronchial stenosis or stricture requiring intervention [ ]vi) Tracheobronchomalacia requiring intervention [ ]vii) Severe airflow or ventilation abnormalities [ ]viii) Severe respiratory findings [ ]c) Infection requiring inpatient management (eg, Hemodynamic instability, need for intravenous antimicrobial treatment)(77)(78)(79)(80)(81)(82 [ ]d) Other complication of transplanted lung (eg, obliterative bronchiolitis, plastic bronchitis, thrombotic microangiopathy, constrictive pericarditis) requiring inpatient management(83)(84)(85)(86)(87) [ ]XXll. Inpatient palliative care needed.[D](88)(89)(90)(91) [ ]XXlll. Pulmonary Disease condition, symptom, or finding for which emergency and observation care have failed or are not considered appropriate. The original [email or web address] content created by Attributor has been revised. The portions of the content which have been revised are identified through the use of italic text or in bold, and [facility] has neither reviewed nor approved the modified material. All other unmodified content is copyright [email or web address] [facility]. Please see references footnoted in the original [facility] [employer] edition 2017 Admission Criteria Met: Yes
[2016-11-08] MEDS: ZOSYN/NS 2.25 GM/50ML 2.25 GM/50 ML BAG IV SCH ×2 (06:26→14:04)
[2016-11-08 07:19] LABS: Basophils % (Auto) 0.1 % (0.0-1.8); Hematocrit 23.3 % (30.3-42.9); Hemoglobin 7.6 gm/dl (10.1-14.3); Mean Corpuscular HGB Conc 33 % (30-34); Mean Corpuscular Hemoglobin 32 pg (28-32); Mean Corpuscular Volume 98 fl (79-97); Platelet Count 144 K/mm3 (140-440); Red Blood Count 2.37 M/mm3 (3.65-5.03); Red Cell Distribution Width 13.9 % (13.2-15.2); White Blood Count 5.6 K/mm3 (4.5-11.0)
[2016-11-08 07:44] LABS: Creatine Kinase MB 182.7 ng/mL (0.0-4.0)
[2016-11-08 07:45] LABS: Albumin 2.5 g/dL (3.9-5); Albumin/Globulin Ratio 0.8 %; BUN/Creatinine Ratio 15.75; Bilirubin,Total 0.4 mg/dL (0.1-1.2); Calcium 8.4 mg/dL (8.4-10.2); Chloride 102.7 mmol/L (98-107); Potassium 4.4 mmol/L (3.6-5.0); Total Protein 5.6 g/dL (6.3-8.2)
[2016-11-08] MEDS: APRESOLINE PO SCH ×3 (08:39→21:44)
--- NOTE | 2016-11-08 08:50 | History and Physical Report ---
History of Present Illness Date of examination: 11/07/16 Date of admission: 11/07/16 21:22 Chief complaint: Nausea vomiting and Diarrhea for 2 days Increasing SOB for 2 days Swelling of leds for 1 week History of present illness: This is a 70-year-old Afro-[place] female presents the emergency department by EMS from her home by EMS with complaint of 2 days of diarrhea and possible dehydration. Once the patient got here she appeared to have some shortness of breath and was noticed to have lower extremity swelling. The patient does admit to shortness of breath but denies any chest pain, or fever She appears to have a past medical history of CVA, diabetes and hypertension. She was not given anything for symptoms prior to presentation or in route. She denies any abdominal pain but does admit to the loose stool. Past Medical Hx - Past Medical History Previous Medical History?: Yes Hx Hypertension: Yes Hx Asthma: No Hx COPD: No Hx Dementia: Yes - Surgical History Past Surgical History?: Yes Additional Surgical History: Hysterectomy - Social History Smoking Status: Never Smoker Substance Use Type: None Fam HX: HTN - Medications Home Medications: Home Medications Medication Instructions Recorded Confirmed Last Taken Type Alendronate Sodium 70 mg PO QWEEK 02/25/15 02/25/15 02/18/15 History Aspirin BABY CHEW TAB 81 mg PO DAILY 02/25/15 02/25/15 02/24/15 History Calcium + Vitamin D3 Gummies 600 mg PO DAILY 02/25/15 02/25/15 02/24/15 History Carvedilol 25 mg PO BID 02/25/15 02/25/15 02/25/15 History Hydralazine HCl 50 mg PO TID 02/25/15 02/25/15 02/25/15 History Memantine (Nf) [Namenda (Nf)] 10 mg PO DAILY 02/25/15 02/25/15 02/25/15 History Potassium Chloride [Klor-Con M20] 20 meq PO DAILY 02/25/15 02/25/15 02/25/15 History Simvastatin 20 mg PO DAILY 02/25/15 02/25/15 02/24/15 History Valsartan 320 mg PO DAILY 02/25/15 02/25/15 02/25/15 History amLODIPine 10 mg PO DAILY 02/25/15 02/25/15 02/25/15 History traMADol [Ultram] 50 mg PO Q4HR PRN #12 tablet 03/25/16 Unknown Rx Review of Systems ROS: Stated complaint: DIARRHEA Other details as noted in HPI Comment: All other systems reviewed and negative Constitutional: denies: chills, fever Eyes: denies: eye pain, eye discharge, vision change ENT: denies: ear pain, throat pain Respiratory: shortness of breath. denies: cough Cardiovascular: edema. denies: chest pain Gastrointestinal: diarrhea. denies: abdominal pain Genitourinary: denies: urgency, dysuria, discharge Musculoskeletal: denies: back pain, joint swelling, arthralgia Skin: denies: rash, lesions Neurological: denies: headache, weakness, paresthesias Medications and Allergies Allergies Allergy/AdvReac Type Severity Reaction Status Date / Time No Known Allergies Allergy Unverified 02/25/15 10:42 Home Medications Medication Instructions Recorded Confirmed Last Taken Type Alendronate Sodium 70 mg PO QWEEK 02/25/15 02/25/15 02/18/15 History Aspirin BABY CHEW TAB 81 mg PO DAILY 02/25/15 02/25/15 02/24/15 History Calcium + Vitamin D3 Gummies 600 mg PO DAILY 02/25/15 02/25/15 02/24/15 History Carvedilol 25 mg PO BID 02/25/15 02/25/15 02/25/15 History Hydralazine HCl 50 mg PO TID 02/25/15 02/25/15 02/25/15 History Memantine (Nf) [Namenda (Nf)] 10 mg PO DAILY 02/25/15 02/25/15 02/25/15 History Potassium Chloride [Klor-Con M20] 20 meq PO DAILY 02/25/15 02/25/15 02/25/15 History Simvastatin 20 mg PO DAILY 02/25/15 02/25/15 02/24/15 History Valsartan 320 mg PO DAILY 02/25/15 02/25/15 02/25/15 History amLODIPine 10 mg PO DAILY 02/25/15 02/25/15 02/25/15 History traMADol [Ultram] 50 mg PO Q4HR PRN #12 tablet 03/25/16 Unknown Rx Active Meds: Active Medications Acetaminophen (Tylenol) 650 mg PO Q4H PRN PRN Reason: Pain MILD(1-3)/Fever >100.5/PAREKH Albuterol (Proventil) 2.5 mg IH Q3HRT PRN PRN Reason: Shortness Of Breath Albuterol/Ipratropium (Duoneb *Not For Prn Use*) 1 ampul IH Q6HRT [facility] Last Admin: 11/08/16 02:10 Dose: 1 ampul Amlodipine Besylate (Norvasc) 10 mg PO DAILY [facility] Last Admin: 11/07/16 22:42 Dose: Not Given Bisacodyl (Dulcolax) 10 mg RI QDAY PRN PRN Reason: Constipation unrelieved by [facility] Calcium/Vitamin D ([place] D 500 Mg-200 Unit) 1 each PO QDAY [facility] Carvedilol (Coreg) 25 mg PO BID [facility] Last Admin: 11/07/16 22:45 Dose: Not Given Heparin Sodium (Porcine) (Heparin) 5,000 unit SUB-Q Q12HR [facility] Last Admin: 11/07/16 22:47 Dose: Not Given Hydralazine HCl (Apresoline) 50 mg PO TID [facility] Last Admin: 11/08/16 08:39 Dose: 50 mg Nitroglycerin/Dextrose (Tridil Drip 50mg/250ml) 50 mg in 250 mls @ 3 mls/hr IV TITR RADHA; 10 MCG/MIN PRN Reason: Protocol Last Admin: 11/08/16 04:42 Dose: 175 mcg/min, 52.5 mls/hr Piperacillin Sod/Tazobactam Sod (Zosyn/Ns 2.25 Gm/50ml) 2.25 gm in 50 mls @ 100 mls/hr IV Q8HR [facility] PRN Reason: Protocol Last Admin: 11/08/16 06:26 Dose: 100 mls/hr Magnesium Hydroxide (Milk Of Magnesia) 30 ml PO Q4H PRN PRN Reason: Constipation Memantine (Namenda Xr) 14 mg PO QDAY [facility] Methylprednisolone Sodium Succinate (Solu-Medrol) 125 mg IV Q8HR [facility] Last Admin: 11/08/16 06:27 Dose: 125 mg Ondansetron HCl (Zofran) 4 mg IV Q8H PRN PRN Reason: N/V unrelieved by Reglan Oxycodone/Acetaminophen (Percocet 5/325) 1 tab PO Q6H PRN PRN Reason: Pain, Moderate (4-6) Potassium Chloride (K-Dur) 20 meq PO DAILY [facility] Last Admin: 11/07/16 22:52 Dose: Not Given Simvastatin (Zocor) 20 mg PO DAILY [facility] Last Admin: 11/07/16 22:46 Dose: Not Given Tramadol HCl (Ultram) 50 mg PO Q4H PRN PRN Reason: Pain Valsartan (Diovan) 320 mg PO DAILY [facility] Zolpidem Tartrate (Ambien) 5 mg PO QHS PRN PRN Reason: Insomnia Exam - Physical Exam Narrative exam: In Moderate resp distress and was put on BIPAP for possible intubation - Constitutional Vitals: Temp Pulse Resp BP Pulse Ox 98.7 F 119 H 19 127/71 100 11/08/16 07:27 11/08/16 08:39 11/08/16 08:00 11/08/16 08:39 11/08/16 08:00 General appearance: Present: severe distress, well-nourished - EENT Eyes: Present: PERRL ENT: hearing intact, clear oral mucosa - Neck Neck: Present: supple, normal ROM - Respiratory Respiratory effort: normal Respiratory: bilateral: rales, rhonchi - Cardiovascular Heart rate: 100 Rhythm: regular Heart Sounds: Present: S1 & S2. Absent: rub, click - Extremities Extremities: no ischemia, pulses symmetrical, No edema (3 +++) Extremity abnormal: edema Peripheral Pulses: within normal limits - Abdominal General gastrointestinal: Present: soft, non-tender, non-distended, normal bowel sounds Female genitourinary: Present: normal - Integumentary Integumentary: Present: clear, warm, dry - Musculoskeletal Musculoskeletal: gait normal, strength equal bilaterally - Psychiatric Psychiatric: appropriate mood/affect, intact judgment & insight - Neurologic Neurologic: CNII-XII intact, moves all extremities Results - Labs CBC & Chem 7: 11/08/16 06:45 11/08/16 06:45 Labs: Laboratory Last Values WBC 5.6 K/mm3 (4.5-11.0) 11/08/16 06:45 RBC 2.37 M/mm3 (3.65-5.03) L 11/08/16 06:45 Hgb 7.6 gm/dl (10.1-14.3) L 11/08/16 06:45 Hct 30.8 % (30.3-42.9) 11/07/16 16:35 MCV 98 fl (79-97) H 11/08/16 06:45 MCH 32 pg (28-32) 11/08/16 06:45 MCHC 33 % (30-34) 11/08/16 06:45 RDW 13.9 % (13.2-15.2) 11/08/16 06:45 Plt Count 144 K/mm3 (140-440) 11/08/16 06:45 Lymph % (Auto) 8.0 % (13.4-35.0) L 11/08/16 06:45 [place] % (Auto) 2.7 % (0.0-7.3) 11/08/16 06:45 Eos % (Auto) 0.0 % (0.0-4.3) 11/08/16 06:45 Baso % (Auto) 0.1 % (0.0-1.8) 11/08/16 06:45 Lymph # 0.5 K/mm3 (1.2-5.4) L 11/08/16 06:45 [place] # 0.1 K/mm3 (0.0-0.8) 11/08/16 06:45 Eos # 0.0 K/mm3 (0.0-0.4) 11/08/16 06:45 Baso # 0.0 K/mm3 (0.0-0.1) 11/08/16 06:45 Seg Neutrophils % 89.2 % (40.0-70.0) H 11/08/16 06:45 Seg Neutrophils # 5.0 K/mm3 (1.8-7.7) 11/08/16 06:45 PT 13.0 Sec. (12.2-14.9) 11/07/16 16:35 INR 0.99 (0.87-1.13) 11/07/16 16:35 APTT 34.7 Sec. (24.2-36.6) 11/07/16 16:35 D-Dimer 1575.53 ng/mlDDU (0-234) H 11/07/16 16:35 POC ABG pH 7.371 (7.35-7.45) 11/07/16 18:14 POC ABG pCO2 27.0 (35-45) L 11/07/16 18:14 POC ABG pO2 124 (80-105) H 11/07/16 18:14 POC ABG HCO3 15.6 11/07/16 18:14 POC ABG Total CO2 16 11/07/16 18:14 POC ABG O2 Sat 99 11/07/16 18:14 POC ABG Base Excess -10 11/07/16 18:14 FiO2 35 % 11/07/16 18:14 Sodium 137 mmol/L (137-145) 11/08/16 06:45 Potassium 4.4 mmol/L (3.6-5.0) 11/08/16 06:45 Chloride 102.7 mmol/L (98-107) 11/08/16 06:45 Carbon Dioxide 17 mmol/L (22-30) L 11/08/16 06:45 Anion Gap 22 mmol/L 11/08/16 06:45 BUN 52 mg/dL (7-17) H 11/08/16 06:45 Creatinine 3.3 mg/dL (0.7-1.2) H 11/08/16 06:45 Estimated GFR 17 ml/min 11/08/16 06:45 BUN/Creatinine Ratio 15.75 % 11/08/16 06:45 Glucose 263 mg/dL (65-100) H 11/08/16 06:45 Hemoglobin A1c 4.8 % (4-6) 11/07/16 16:35 Lactic Acid 1.80 mmol/L (0.7-2.0) 11/07/16 18:49 Calcium 8.4 mg/dL (8.4-10.2) 11/08/16 06:45 Total Bilirubin 0.40 mg/dL (0.1-1.2) 11/08/16 06:45 AST 164 units/L (5-40) H 11/08/16 06:45 ALT 47 units/L (7-56) 11/08/16 06:45 Alkaline Phosphatase 89 units/L (35-129) 11/08/16 06:45 Total Creatine Kinase 1273 units/L (30-135) H 11/08/16 06:45 CK-MB (CK-2) 182.7 ng/mL (0.0-4.0) H 11/08/16 06:45 CK-MB (CK-2) Rel Index 14.3 (0-4) H 11/08/16 06:45 Troponin T 6.920 ng/mL (0.00-0.029) H* 11/07/16 18:36 NT-Pro-B Natriuret Pep 90934 pg/mL (0-900) H 11/07/16 16:35 Total Protein 5.6 g/dL (6.3-8.2) L 11/08/16 06:45 Albumin 2.5 g/dL (3.9-5) L 11/08/16 06:45 Albumin/Globulin Ratio 0.8 % 11/08/16 06:45 Triglycerides 69 mg/dL (2-149) 11/07/16 16:35 Cholesterol 129 mg/dL (50-199) 11/07/16 16:35 LDL Cholesterol Direct 56 mg/dL (50-130) 11/07/16 16:35 HDL Cholesterol 60 mg/dL (40-59) H 11/07/16 16:35 Cholesterol/HDL Ratio 2.15 % 11/07/16 16:35 Urine Color Crystal (Yellow) 11/07/16 16:00 Urine Turbidity Cloudy (Clear) 11/07/16 16:00 Urine pH 5.0 (5.0-7.0) 11/07/16 16:00 Ur Specific [place] 1.019 (1.003-1.030) 11/07/16 16:00 Urine Protein 100 mg/dl mg/dL (Negative) 11/07/16 16:00 Urine Glucose (UA) Neg mg/dL (Negative) 11/07/16 16:00 Urine Ketones Neg mg/dL (Negative) 11/07/16 16:00 Urine Blood Sm (Negative) 11/07/16 16:00 Urine Nitrite Neg (Negative) 11/07/16 16:00 Urine Bilirubin Neg (Negative) 11/07/16 16:00 Urine Urobilinogen < 2.0 mg/dL (<2.0) 11/07/16 16:00 Ur Leukocyte Esterase Neg (Negative) 11/07/16 16:00 Urine WBC (Auto) 3.0 /HPF (0.0-6.0) 11/07/16 16:00 Urine RBC (Auto) < 1.0 /HPF (0.0-6.0) 11/07/16 16:00 Short CBC 11/07/16 11/08/16 Range/Units 16:35 06:45 WBC 6.1 5.6 (4.5-11.0) K/mm3 Hgb 10.2 7.6 L (10.1-14.3) gm/dl Hct 30.8 (30.3-42.9) % Plt Count 182 144 (140-440) K/mm3 BMP 11/07/16 11/08/16 16:35 06:45 Sodium 138 137 Potassium 4.9 4.4 Chloride 103.5 102.7 Carbon Dioxide 16 L 17 L BUN 46 H 52 H Creatinine 3.2 H 3.3 H Glucose 101 H 263 H Calcium 9.3 8.4 Cardiac Enzymes 11/07/16 11/07/16 11/07/16 Range/Units 16:35 18:36 18:36 Total Creatine Kinase (30-135) units/L CK-MB (CK-2) 262.6 H (0.0-4.0) ng/mL Troponin T 6.900 H* 6.920 H* (0.00-0.029) ng/mL 11/07/16 11/08/16 Range/Units 21:43 06:45 Total Creatine Kinase 1584 H 1273 H (30-135) units/L CK-MB (CK-2) 268.6 H 182.7 H (0.0-4.0) ng/mL Troponin T (0.00-0.029) ng/mL Liver Function 11/08/16 Range/Units 06:45 Total Bilirubin 0.40 (0.1-1.2) mg/dL AST 164 H (5-40) units/L ALT 47 (7-56) units/L Alkaline Phosphatase 89 (35-129) units/L Albumin 2.5 L (3.9-5) g/dL Urine 11/07/16 Range/Units 16:00 Urine Color Crystal (Yellow) Urine pH 5.0 (5.0-7.0) Ur Specific [place] 1.019 (1.003-1.030) Urine Protein 100 mg/dl (Negative) mg/dL Urine Glucose (UA) Neg (Negative) mg/dL - Imaging and Cardiology EKG: report reviewed (Sinus Tach pvc's LVH 119/min Repolarization abnormalities) Chest x-ray: report reviewed (RU: opacity =Artifact versus infiltrate) Assessment and Plan Assessment and plan: Critical care statement The high probality of a clinically significant ,sudden or life threatening deterioration of Cardio pulmonarysystem required my full and direct attentionintervention and personal management.The aggregate critical care time was 40 minutes.This time is in addition to time spent on 1 Data revieew and interpretation 2patient assesment and monitoring of vital signs 3 Medication orders and management 4 Documentation Advance Directives: Yes (Full code) VTE prophylaxis?: Chemical Plan of care discussed with patient/family: Yes - Patient Problems (1) NSTEMI (non-ST elevated myocardial infarction) Current Visit: Yes Status: Acute Plan to address problem: CkMB 262/268/183 and Troponin 6.92 c/w NSTEMI.Heparin drip initiated .At Std dose.Cardiology consulted.IV Nitro drip initiated (2) Acute pulmonary edema Current Visit: Yes Status: Acute Plan to address problem: Sec to NSTEMI IV Lasix for now and IV Nitro (3) Acute respiratory failure Current Visit: Yes Status: Acute Qualifiers: Respiratory failure complication: hypoxia Qualified Code(s): J96.01 - Acute respiratory failure with hypoxia Plan to address problem: ON Bipap and if necessary intubation (4) Pneumonia Current Visit: Yes Status: Acute Qualifiers: Pneumonia type: P Aspiration pneumonia type: A Laterality: right Lung location: upper lobe of lung Plan to address problem: Unlikely Zosyn started but I may stop it after reeval on 11/09 (5) HTN (hypertension) Current Visit: Yes Status: Chronic Qualifiers: Hypertension type: essential hypertension Qualified Code(s): I10 - Essential (primary) hypertension Plan to address problem: Cont ARB Beta blockers and Hydralazine (6) HLD (hyperlipidemia) Current Visit: Yes Status: Chronic Qualifiers: Hyperlipidemia type: mixed hyperlipidemia Qualified Code(s): E78.2 - Mixed hyperlipidemia Plan to address problem: On Simvastatin (7) Osteoporosis Current Visit: Yes Status: Chronic Qualifiers: Osteoporosis type: age-related Presence of current pathological fracture: P Encounter type: initial encounter Fracture healing: F Qualified Code(s) : M80.00XA - Age-related osteoporosis with current pathological fracture, unspecified site, initial encounter for fracture Plan to address problem: Will hold Alendronate till discharge (8) Dementia Current Visit: Yes Status: Chronic Qualifiers: Dementia type: vascular dementia Alzheimer's disease onset: A Dementia behavioral disturbance: D Plan to address problem: Cont Namenda (9) CKD (chronic kidney disease) stage 4, GFR 15-29 ml/min Current Visit: Yes Status: Chronic Plan to address problem: Stable at baseline (10) DVT prophylaxis Current Visit: Yes Status: Acute Plan to address problem: On IV Heparin
[2016-11-08] MEDS: HEPARIN SUB-Q SCH (09:14)
[2016-11-08] MEDS: K-DUR PO SCH ×3 (09:14→21:46)
[2016-11-08] MEDS: ZOCOR PO SCH (09:15)
[2016-11-08] MEDS: COREG PO SCH ×2 (09:15→21:45)
[2016-11-08] MEDS: NORVASC PO SCH (09:15)
--- NOTE | 2016-11-08 09:32 | Progress Note ---
Assessment and Plan Critical care statement The high probality of a clinically significant ,sudden or life threatening deterioration of Cardio pulmonarysystem required my full and direct attentionintervention and personal management.The aggregate critical care time was 40 minutes.This time is in addition to time spent on 1 Data revieew and interpretation 2patient assesment and monitoring of vital signs 3 Medication orders and management 4 Documentation - Patient Problems (1) NSTEMI (non-ST elevated myocardial infarction) Current Visit: Yes Status: Acute Plan to address problem: CkMB 262/268/183 and Troponin 6.92 c/w NSTEMI.Heparin drip initiated .At Std dose.Cardiology consulted.IV Nitro drip initiated (2) Acute pulmonary edema Current Visit: Yes Status: Acute Plan to address problem: Sec to NSTEMI IV Lasix for now and IV Nitro (3) Acute respiratory failure Current Visit: Yes Status: Acute Qualifiers: Respiratory failure complication: hypoxia Qualified Code(s): J96.01 - Acute respiratory failure with hypoxia Plan to address problem: ON Bipap and if necessary intubation (4) Pneumonia Current Visit: Yes Status: Acute Qualifiers: Pneumonia type: P Aspiration pneumonia type: A Laterality: right Lung location: upper lobe of lung Plan to address problem: Unlikely Zosyn started but I may stop it after reeval on 11/09 (5) HTN (hypertension) Current Visit: Yes Status: Chronic Qualifiers: Hypertension type: essential hypertension Qualified Code(s): I10 - Essential (primary) hypertension Plan to address problem: Cont ARB Beta blockers and Hydralazine (6) HLD (hyperlipidemia) Current Visit: Yes Status: Chronic Qualifiers: Hyperlipidemia type: mixed hyperlipidemia Qualified Code(s): E78.2 - Mixed hyperlipidemia Plan to address problem: On Simvastatin (7) Osteoporosis Current Visit: Yes Status: Chronic Qualifiers: Osteoporosis type: age-related Presence of current pathological fracture: P Encounter type: initial encounter Fracture healing: F Qualified Code(s) : M80.00XA - Age-related osteoporosis with current pathological fracture, unspecified site, initial encounter for fracture Plan to address problem: Will hold Alendronate till discharge (8) Dementia Current Visit: Yes Status: Chronic Qualifiers: Dementia type: vascular dementia Alzheimer's disease onset: A Dementia behavioral disturbance: D Plan to address problem: Cont Namenda (9) CKD (chronic kidney disease) stage 4, GFR 15-29 ml/min Current Visit: Yes Status: Chronic Plan to address problem: Stable at baseline (10) DVT prophylaxis Current Visit: Yes Status: Acute Plan to address problem: On IV Heparin Subjective Date of service: 11/08/16 Principal diagnosis: NSTEMI Interval history: SOB lot better compared to last evening.Off Bipap.Comfortable and talking.Daughter at bedside . Objective - Constitutional Vitals: Vital Signs - 12hr 11/07/16 11/07/16 11/07/16 21:30 21:35 21:40 Temperature Pulse Rate 120 H 120 H 126 H Pulse Rate [ Posterior Bilateral Throughout] Respiratory 27 H 26 H 13 Rate Respiratory Rate [Posterior Bilateral Throughout] Blood Pressure 135/76 142/67 129/75 O2 Sat by Pulse 98 97 99 Oximetry 11/07/16 11/07/16 11/07/16 21:45 21:51 21:55 Temperature Pulse Rate 126 H 117 H 116 H Pulse Rate [ Posterior Bilateral Throughout] Respiratory 29 H 19 17 Rate Respiratory Rate [Posterior Bilateral Throughout] Blood Pressure 129/75 129/64 138/69 O2 Sat by Pulse 97 97 97 Oximetry 11/07/16 11/07/16 11/07/16 22:01 22:05 22:11 Temperature Pulse Rate 116 H 119 H 116 H Pulse Rate [ Posterior Bilateral Throughout] Respiratory 29 H 26 H 30 H Rate Respiratory Rate [Posterior Bilateral Throughout] Blood Pressure 130/69 130/69 114/58 O2 Sat by Pulse 97 97 97 Oximetry 11/07/16 11/07/16 11/07/16 22:15 22:20 22:25 Temperature Pulse Rate 120 H 121 H 115 H Pulse Rate [ Posterior Bilateral Throughout] Respiratory 13 19 24 Rate Respiratory Rate [Posterior Bilateral Throughout] Blood Pressure 128/61 120/69 127/72 O2 Sat by Pulse 97 96 96 Oximetry 11/07/16 11/07/16 11/07/16 22:30 22:35 22:40 Temperature Pulse Rate 113 H 114 H 112 H Pulse Rate [ Posterior Bilateral Throughout] Respiratory 25 H 26 H 37 H Rate Respiratory Rate [Posterior Bilateral Throughout] Blood Pressure 123/63 124/64 115/58 O2 Sat by Pulse 95 95 93 Oximetry 11/07/16 11/07/16 11/07/16 22:42 22:45 22:50 Temperature Pulse Rate 120 H 112 H 117 H Pulse Rate [ Posterior Bilateral Throughout] Respiratory 28 H 27 H Rate Respiratory Rate [Posterior Bilateral Throughout] Blood Pressure 128/61 111/53 122/67 O2 Sat by Pulse 93 97 Oximetry 11/07/16 11/07/16 11/07/16 22:55 23:00 23:05 Temperature Pulse Rate 114 H 114 H 117 H Pulse Rate [ Posterior Bilateral Throughout] Respiratory 31 H 23 17 Rate Respiratory Rate [Posterior Bilateral Throughout] Blood Pressure 125/66 126/63 133/68 O2 Sat by Pulse 96 96 97 Oximetry 11/07/16 11/08/16 11/08/16 23:47 00:00 00:01 Temperature 98.5 F Pulse Rate 120 H 116 H Pulse Rate [ Posterior Bilateral Throughout] Respiratory 28 H 28 H Rate Respiratory Rate [Posterior Bilateral Throughout] Blood Pressure 136/79 O2 Sat by Pulse 98 99 Oximetry 11/08/16 11/08/16 11/08/16 00:02 00:11 00:21 Temperature Pulse Rate 113 H 114 H Pulse Rate [ Posterior Bilateral Throughout] Respiratory 27 H 22 Rate Respiratory Rate [Posterior Bilateral Throughout] Blood Pressure 136/79 135/77 O2 Sat by Pulse 98 98 98 Oximetry 11/08/16 11/08/16 11/08/16 00:30 00:45 01:00 Temperature Pulse Rate 112 H 110 H 109 H Pulse Rate [ Posterior Bilateral Throughout] Respiratory 18 24 19 Rate Respiratory Rate [Posterior Bilateral Throughout] Blood Pressure 135/78 135/82 138/82 O2 Sat by Pulse 98 98 97 Oximetry 11/08/16 11/08/16 11/08/16 01:15 01:30 01:45 Temperature Pulse Rate 110 H 108 H 108 H Pulse Rate [ Posterior Bilateral Throughout] Respiratory 18 17 20 Rate Respiratory Rate [Posterior Bilateral Throughout] Blood Pressure 138/82 135/80 139/83 O2 Sat by Pulse 98 97 97 Oximetry 11/08/16 11/08/16 11/08/16 02:00 02:10 02:15 Temperature Pulse Rate 110 H 109 H Pulse Rate [ 111 H Posterior Bilateral Throughout] Respiratory 18 25 H Rate Respiratory 27 H Rate [Posterior Bilateral Throughout] Blood Pressure 137/80 140/81 O2 Sat by Pulse 98 97 Oximetry 11/08/16 11/08/16 11/08/16 02:31 02:40 02:45 Temperature Pulse Rate 114 H 110 H Pulse Rate [ 117 H Posterior Bilateral Throughout] Respiratory 20 22 Rate Respiratory 25 H Rate [Posterior Bilateral Throughout] Blood Pressure 139/81 137/86 O2 Sat by Pulse 99 98 Oximetry 11/08/16 11/08/16 11/08/16 03:00 03:15 03:30 Temperature Pulse Rate 107 H 102 H 105 H Pulse Rate [ Posterior Bilateral Throughout] Respiratory 22 17 22 Rate Respiratory Rate [Posterior Bilateral Throughout] Blood Pressure 133/78 130/69 124/75 O2 Sat by Pulse 97 98 98 Oximetry 11/08/16 11/08/16 11/08/16 03:45 04:00 04:09 Temperature 98.6 F Pulse Rate 110 H 103 H 104 H Pulse Rate [ Posterior Bilateral Throughout] Respiratory 25 H 15 29 H Rate Respiratory Rate [Posterior Bilateral Throughout] Blood Pressure 123/72 113/64 113/64 O2 Sat by Pulse 96 97 96 Oximetry 11/08/16 11/08/16 11/08/16 04:15 04:30 04:45 Temperature Pulse Rate 103 H 103 H 107 H Pulse Rate [ Posterior Bilateral Throughout] Respiratory 24 32 H 20 Rate Respiratory Rate [Posterior Bilateral Throughout] Blood Pressure 118/68 118/68 127/70 O2 Sat by Pulse 97 97 97 Oximetry 11/08/16 11/08/16 11/08/16 05:00 05:15 05:31 Temperature Pulse Rate 110 H 108 H 111 H Pulse Rate [ Posterior Bilateral Throughout] Respiratory 25 H 18 26 H Rate Respiratory Rate [Posterior Bilateral Throughout] Blood Pressure 122/71 127/78 133/80 O2 Sat by Pulse 98 97 97 Oximetry 11/08/16 11/08/16 11/08/16 05:45 06:00 06:15 Temperature Pulse Rate 111 H 113 H 104 H Pulse Rate [ Posterior Bilateral Throughout] Respiratory 25 H 31 H 15 Rate Respiratory Rate [Posterior Bilateral Throughout] Blood Pressure 133/76 130/80 129/75 O2 Sat by Pulse 97 98 99 Oximetry 11/08/16 11/08/16 11/08/16 06:30 06:45 07:00 Temperature Pulse Rate 111 H 108 H 107 H Pulse Rate [ Posterior Bilateral Throughout] Respiratory 22 25 H 21 Rate Respiratory Rate [Posterior Bilateral Throughout] Blood Pressure 128/80 128/80 125/71 O2 Sat by Pulse 98 98 95 Oximetry 11/08/16 11/08/16 11/08/16 07:15 07:27 07:30 Temperature 98.7 F Pulse Rate 107 H 113 H Pulse Rate [ Posterior Bilateral Throughout] Respiratory 27 H 26 H Rate Respiratory Rate [Posterior Bilateral Throughout] Blood Pressure 124/74 122/79 O2 Sat by Pulse 97 97 Oximetry 11/08/16 11/08/16 11/08/16 07:45 08:00 08:39 Temperature Pulse Rate 108 H 110 H 119 H Pulse Rate [ Posterior Bilateral Throughout] Respiratory 28 H 19 Rate Respiratory Rate [Posterior Bilateral Throughout] Blood Pressure 132/71 124/74 127/71 O2 Sat by Pulse 96 97 Oximetry 11/08/16 11/08/16 09:14 09:15 Temperature Pulse Rate 117 H 114 H Pulse Rate [ Posterior Bilateral Throughout] Respiratory Rate Respiratory Rate [Posterior Bilateral Throughout] Blood Pressure 124/73 124/73 O2 Sat by Pulse Oximetry - Labs CBC & Chem 7: 11/08/16 06:45 11/08/16 06:45 Labs: Abnormal lab results 11/07/16 11/08/16 11/08/16 Range/Units 21:43 06:45 06:45 RBC 2.37 L (3.65-5.03) M/mm3 Hgb 7.6 L (10.1-14.3) gm/dl Hct 23.3 L D (30.3-42.9) % MCV 98 H (79-97) fl Lymph % (Auto) 8.0 L (13.4-35.0) % Lymph # 0.5 L (1.2-5.4) K/mm3 Seg Neutrophils % 89.2 H (40.0-70.0) % Carbon Dioxide 17 L (22-30) mmol/L BUN 52 H (7-17) mg/dL Creatinine 3.3 H (0.7-1.2) mg/dL Glucose 263 H (65-100) mg/dL AST 164 H (5-40) units/L Total Creatine Kinase 1584 H (30-135) units/L CK-MB (CK-2) 268.6 H (0.0-4.0) ng/mL CK-MB (CK-2) Rel Index 16.9 H (0-4) Total Protein 5.6 L (6.3-8.2) g/dL Albumin 2.5 L (3.9-5) g/dL 11/08/16 Range/Units 06:45 RBC (3.65-5.03) M/mm3 Hgb (10.1-14.3) gm/dl Hct (30.3-42.9) % MCV (79-97) fl Lymph % (Auto) (13.4-35.0) % Lymph # (1.2-5.4) K/mm3 Seg Neutrophils % (40.0-70.0) % Carbon Dioxide (22-30) mmol/L BUN (7-17) mg/dL Creatinine (0.7-1.2) mg/dL Glucose (65-100) mg/dL AST (5-40) units/L Total Creatine Kinase 1273 H (30-135) units/L CK-MB (CK-2) 182.7 H (0.0-4.0) ng/mL CK-MB (CK-2) Rel Index 14.3 H (0-4) Total Protein (6.3-8.2) g/dL Albumin (3.9-5) g/dL
[2016-11-08] MEDS ORDERED: K-DUR PO SCH (10:00)
[2016-11-08] MEDS ORDERED: DIOVAN PO SCH (10:00)
[2016-11-08] MEDS: HEPARIN/ 0.45% NACL-25,000 UNIT/500 ML 25,000 UNIT/500 ML BAG IV SCH (10:09)
[2016-11-08] MEDS: OYSCO D 500 MG-200 UNIT PO SCH (10:09)
--- NOTE | 2016-11-08 12:35 | Consultation ---
History of Present Illness - Reason for Consult Consult date: 11/08/16 acute renal failure Requesting physician: HEIDI KENDRICK - History of Present Illness 70-year-old Afro-[place] female presents the emergency department by EMS with complaint of 2 days of worsening SOB in association with bilateral LE edema. No exacerbating or relieving factors. She also c/o diarrhea on and off for 2-3 days. She denies any chest pain, fever, nausea or vomiting. Her past medical hx is pertinent for CVA, diabetes and hypertension. Daughter Noreen states that she was told to have kidney issues years back by PCP and referred to a food service order clerk which she did not follow up with. We are consulted today for evaluation of elevated BUN/CR of 76/3.2 mg/dL. No previous baseline available. Denies urinary symptoms. Past History Past Medical History: hypertension, other (DM, CVA ) Past Surgical History: hysterectomy Social history: denies: smoking, alcohol abuse, prescription drug abuse, IV drug use Family history: denies: no significant family history Medications and Allergies Allergies Allergy/AdvReac Type Severity Reaction Status Date / Time No Known Allergies Allergy Unverified 02/25/15 10:42 Home Medications Medication Instructions Recorded Confirmed Last Taken Type Alendronate Sodium 70 mg PO QWEEK 02/25/15 11/08/16 1 Day Ago History Aspirin BABY CHEW TAB 81 mg PO DAILY 02/25/15 11/08/16 1 Day Ago History Calcium + Vitamin D3 Gummies 600 mg PO DAILY 02/25/15 11/08/16 1 Day Ago History Carvedilol 25 mg PO BID 02/25/15 11/08/16 1 Day Ago History Hydralazine HCl 50 mg PO TID 02/25/15 11/08/16 1 Day Ago History Memantine (Nf) [Namenda (Nf)] 10 mg PO DAILY 02/25/15 11/08/16 1 Day Ago History Potassium Chloride [Klor-Con M20] 20 meq PO DAILY 02/25/15 11/08/16 1 Day Ago History Simvastatin 20 mg PO DAILY 02/25/15 11/08/16 1 Day Ago History Valsartan 320 mg PO DAILY 02/25/15 11/08/16 1 Day Ago History amLODIPine 10 mg PO DAILY 02/25/15 11/08/16 1 Day Ago History traMADol [Ultram] 50 mg PO Q4HR PRN #12 tablet 03/25/16 11/08/16 1 Day Ago Rx Loratadine 10 mg PO DAILY 11/08/16 11/08/16 1 Day Ago History Active Meds: Active Medications Acetaminophen (Tylenol) 650 mg PO Q4H PRN PRN Reason: Pain MILD(1-3)/Fever >100.5/PAREKH Albuterol (Proventil) 2.5 mg IH Q3HRT PRN PRN Reason: Shortness Of Breath Albuterol/Ipratropium (Duoneb *Not For Prn Use*) 1 ampul IH Q6HRT [facility] Last Admin: 11/08/16 09:33 Dose: 1 ampul Amlodipine Besylate (Norvasc) 10 mg PO DAILY [facility] Last Admin: 11/08/16 09:15 Dose: 10 mg Bisacodyl (Dulcolax) 10 mg [place] QDAY PRN PRN Reason: Constipation unrelieved by MOM Calcium/Vitamin D (Oysco D 500 Mg-200 Unit) 1 each PO QDAY [facility] Last Admin: 11/08/16 10:09 Dose: 1 each Carvedilol (Coreg) 25 mg PO BID [facility] Last Admin: 11/08/16 09:15 Dose: 25 mg Furosemide (Lasix) 40 mg IV 0600,1800 [facility] Hydralazine HCl (Apresoline) 50 mg PO TID [facility] Last Admin: 11/08/16 08:39 Dose: 50 mg Nitroglycerin/Dextrose (Tridil Drip 50mg/250ml) 50 mg in 250 mls @ 3 mls/hr IV TITR RADHA; 10 MCG/MIN PRN Reason: Protocol Last Titration: 11/08/16 11:34 Dose: 110 mcg/min, 33 mls/hr Piperacillin Sod/Tazobactam Sod (Zosyn/Ns 2.25 Gm/50ml) 2.25 gm in 50 mls @ 100 mls/hr IV Q8HR RADHA PRN Reason: Protocol Last Admin: 11/08/16 06:26 Dose: 100 mls/hr Heparin Sodium/Sodium Chloride (Heparin/ 0.45% Nacl-25,000 Unit/500 Ml) 25,000 unit in 500 mls @ 20 mls/hr IV TITR RADHA; 1,000 UNITS/HR PRN Reason: Protocol Last Admin: 11/08/16 10:09 Dose: 1,000 units/hr, 20 mls/hr Magnesium Hydroxide (Milk Of Magnesia) 30 ml PO Q4H PRN PRN Reason: Constipation Memantine (Namenda Xr) 14 mg PO QDAY [facility] Methylprednisolone Sodium Succinate (Solu-Medrol) 125 mg IV Q8HR [facility] Last Admin: 11/08/16 06:27 Dose: 125 mg Ondansetron HCl (Zofran) 4 mg IV Q8H PRN PRN Reason: N/V unrelieved by Reglan Oxycodone/Acetaminophen (Percocet 5/325) 1 tab PO Q6H PRN PRN Reason: Pain, Moderate (4-6) Potassium Chloride (K-Dur) 20 meq PO Q12HR [facility] Last Admin: 11/08/16 11:31 Dose: Not Given Simvastatin (Zocor) 20 mg PO DAILY [facility] Last Admin: 11/08/16 09:15 Dose: 20 mg Tramadol HCl (Ultram) 50 mg PO Q4H PRN PRN Reason: Pain Valsartan (Diovan) 320 mg PO DAILY [facility] Last Admin: 11/08/16 09:14 Dose: 320 mg Zolpidem Tartrate (Ambien) 5 mg PO QHS PRN PRN Reason: Insomnia Review of Systems Constitutional: anorexia, fatigue, poor appetite Ears, nose, mouth and throat: no dental pain, no mouth pain, no dysphagia, no hoarseness Cardiovascular: orthopnea, shortness of breath, no chest pain Respiratory: shortness of breath, no cough, no dyspnea on exertion, no congestion, no wheezing Gastrointestinal: diarrhea, no nausea, no vomiting Genitourinary Female: no dysuria, no urinary frequency, no urgency Rectal: no pain, no itching, no hemorrhoids Musculoskeletal: no neck stiffness, no neck pain, no shooting arm pain Integumentary: no rash, no pruritis Neurological: no head injury, no vertigo Psychiatric: no paranoia, no depression Endocrine: no cold intolerance, no heat intolerance Hematologic/Lymphatic: no easy bruising, no easy bleeding Exam - Vital Signs Vital signs: Vital Signs Pulse Ox 94 11/07/16 15:29 - General Appearance General appearance: well-developed, well-nourished, appears stated age, frail EENT: PERRL, mucous membranes moist Neck: Present: neck supple, trachea midline. Absent: JVD/HJR, Masses Respiratory: Rales, Decreased Breath Sounds Heart: regular, normal heart rate, S1S2, no murmurs Gastrointestinal: Present: normoactive bowel sounds. Absent: tenderness Integumentary: no rash, warm and dry Neurologic: no focal deficit, alert and oriented x3, gait normal, strength 5/5 Musculoskeletal: Absent: deformities, joint swelling Psychiatric: mood/affect appropriate, cooperative Results - Lab Results 11/08/16 12:04 11/08/16 06:45 Most recent lab results Calcium 8.4 mg/dL (8.4-10.2) 11/08/16 06:45 Assessment and Plan (1) NATHALIA vs CKD, Baseline unavailable, ? CRS Current Visit: Yes Status: Acute Plan to address problem: Urine studies Renal U/S Avoid nephrotoxics IV diuretics with close monitoring of her renal function (2) Acute congestive herat failure( EF unknown) Current Visit: Yes Status: Acute Plan to address problem: IV Lasix Strict I/Os F/u on 2 D echo (3) NSTEMI (non-ST elevated myocardial infarction) Current Visit: Yes Status: Acute Plan to address problem: Management per cardio (4) Acute hypoxic respiratory failure (Pneumonia /pulmonary edema) Current Visit: Yes Status: Acute Antibiotics BiPAP support as needed IV diuretics as mentioned above (5) Essential HTN (hypertension) Current Visit: Yes Status: Chronic Qualifiers: Hypertension type: essential hypertension Qualified Code(s): I10 - Essential (primary) hypertension Plan to address problem: Cont ARB Beta blockers and Hydralazine (6) Metabolic Acidosis minesh 2/2 Dx 3 Current Visit: Yes Status: Acute Continue to monitor (7) Dementia Current Visit: Yes Status: Chronic Qualifiers: Dementia type: vascular dementia Alzheimer's disease onset: A Dementia behavioral disturbance: D Plan to address problem: Cont Namenda
--- NOTE | 2016-11-08 12:57 | Consultation ---
History of Present Illness Consult date: 11/08/16 Consult reason: congestive heart failure, elevated troponin History of present illness: 70 YO woman with h/o htn and prior CVA who presented to ED due to several days of gradually worsening dyspnea, nausea/vomiting, and LE edema. She has not had any chest pains. She has not had any episodes of syncope or pre-syncope. She was noted to be volume overloaded and cardiac enzymes are elevated in pattern consistent with NSTEMI. She has been treated with IV diuretics, nitrates, and IV heparin. She remains chest pain free and dyspnea has improved. ECG on presentation revealed sinus tachycardia, Left atrial enlargement, left axis deviation, LVH with repolarization abnormality. Past History Past Medical History: hypertension, stroke Social history: denies: smoking Family history: CAD Medications and Allergies Allergies Allergy/AdvReac Type Severity Reaction Status Date / Time No Known Allergies Allergy Unverified 02/25/15 10:42 Home Medications Medication Instructions Recorded Confirmed Last Taken Type Alendronate Sodium 70 mg PO QWEEK 02/25/15 11/08/16 1 Day Ago History Aspirin BABY CHEW TAB 81 mg PO DAILY 02/25/15 11/08/16 1 Day Ago History Calcium + Vitamin D3 Gummies 600 mg PO DAILY 02/25/15 11/08/16 1 Day Ago History Carvedilol 25 mg PO BID 02/25/15 11/08/16 1 Day Ago History Hydralazine HCl 50 mg PO TID 02/25/15 11/08/16 1 Day Ago History Memantine (Nf) [Namenda (Nf)] 10 mg PO DAILY 02/25/15 11/08/16 1 Day Ago History Potassium Chloride [Klor-Con M20] 20 meq PO DAILY 02/25/15 11/08/16 1 Day Ago History Simvastatin 20 mg PO DAILY 02/25/15 11/08/16 1 Day Ago History Valsartan 320 mg PO DAILY 02/25/15 11/08/16 1 Day Ago History amLODIPine 10 mg PO DAILY 02/25/15 11/08/16 1 Day Ago History traMADol [Ultram] 50 mg PO Q4HR PRN #12 tablet 03/25/16 11/08/16 1 Day Ago Rx Loratadine 10 mg PO DAILY 11/08/16 11/08/16 1 Day Ago History Active Meds: Active Medications Acetaminophen (Tylenol) 650 mg PO Q4H PRN PRN Reason: Pain MILD(1-3)/Fever >100.5/PAREHK Albuterol (Proventil) 2.5 mg IH Q3HRT PRN PRN Reason: Shortness Of Breath Albuterol/Ipratropium (Duoneb *Not For Prn Use*) 1 ampul IH Q6HRT [facility] Last Admin: 11/08/16 09:33 Dose: 1 ampul Amlodipine Besylate (Norvasc) 10 mg PO DAILY [facility] Last Admin: 11/08/16 09:15 Dose: 10 mg Bisacodyl (Dulcolax) 10 mg [place] QDAY PRN PRN Reason: Constipation unrelieved by MOM Calcium/Vitamin D (Oysco D 500 Mg-200 Unit) 1 each PO QDAY [facility] Last Admin: 11/08/16 10:09 Dose: 1 each Carvedilol (Coreg) 25 mg PO BID [facility] Last Admin: 11/08/16 09:15 Dose: 25 mg Furosemide (Lasix) 40 mg IV 0600,1800 [facility] Hydralazine HCl (Apresoline) 50 mg PO TID [facility] Last Admin: 11/08/16 08:39 Dose: 50 mg Nitroglycerin/Dextrose (Tridil Drip 50mg/250ml) 50 mg in 250 mls @ 3 mls/hr IV TITR RADHA; 10 MCG/MIN PRN Reason: Protocol Last Titration: 11/08/16 11:34 Dose: 110 mcg/min, 33 mls/hr Piperacillin Sod/Tazobactam Sod (Zosyn/Ns 2.25 Gm/50ml) 2.25 gm in 50 mls @ 100 mls/hr IV Q8HR RADHA PRN Reason: Protocol Last Admin: 11/08/16 06:26 Dose: 100 mls/hr Heparin Sodium/Sodium Chloride (Heparin/ 0.45% Nacl-25,000 Unit/500 Ml) 25,000 unit in 500 mls @ 20 mls/hr IV TITR RADHA; 1,000 UNITS/HR PRN Reason: Protocol Last Admin: 11/08/16 10:09 Dose: 1,000 units/hr, 20 mls/hr Magnesium Hydroxide (Milk Of Magnesia) 30 ml PO Q4H PRN PRN Reason: Constipation Memantine (Namenda Xr) 14 mg PO QDAY [facility] Methylprednisolone Sodium Succinate (Solu-Medrol) 125 mg IV Q8HR [facility] Last Admin: 11/08/16 06:27 Dose: 125 mg Ondansetron HCl (Zofran) 4 mg IV Q8H PRN PRN Reason: N/V unrelieved by Reglan Oxycodone/Acetaminophen (Percocet 5/325) 1 tab PO Q6H PRN PRN Reason: Pain, Moderate (4-6) Potassium Chloride (K-Dur) 20 meq PO Q12HR [facility] Last Admin: 11/08/16 11:31 Dose: Not Given Simvastatin (Zocor) 20 mg PO DAILY [facility] Last Admin: 11/08/16 09:15 Dose: 20 mg Tramadol HCl (Ultram) 50 mg PO Q4H PRN PRN Reason: Pain Valsartan (Diovan) 320 mg PO DAILY [facility] Last Admin: 11/08/16 09:14 Dose: 320 mg Zolpidem Tartrate (Ambien) 5 mg PO QHS PRN PRN Reason: Insomnia Review of Systems All systems: negative (per hpi) Physical Examination Vital Signs Pulse Ox 94 11/07/16 15:29 General appearance: no acute distress HEENT: Positive: PERRL, EOMI Neck: Positive: JVD/HJR Cardiac: Positive: Reg Rate and Rhythm. Negative: Audible Murmur Lungs: Positive: Decreased Breath Sounds, Rales Abdomen: Positive: Soft, Active Bowel Sounds Extremities: Present: +1 Edema Results 11/08/16 06:45 11/08/16 06:45 Cardiac Enzymes 11/07/16 11/08/16 11/08/16 Range/Units 21:43 06:45 06:45 AST 164 H (5-40) units/L CK-MB (CK-2) 268.6 H 182.7 H (0.0-4.0) ng/mL CBC 11/08/16 Range/Units 06:45 WBC 5.6 (4.5-11.0) K/mm3 RBC 2.37 L (3.65-5.03) M/mm3 Hgb 7.6 L (10.1-14.3) gm/dl Hct 23.3 L D (30.3-42.9) % Plt Count 144 (140-440) K/mm3 Lymph # 0.5 L (1.2-5.4) K/mm3 [place] # 0.1 (0.0-0.8) K/mm3 Eos # 0.0 (0.0-0.4) K/mm3 Baso # 0.0 (0.0-0.1) K/mm3 Comprehensive Metabolic Panel 11/08/16 Range/Units 06:45 Sodium 137 (137-145) mmol/L Potassium 4.4 (3.6-5.0) mmol/L Chloride 102.7 (98-107) mmol/L Carbon Dioxide 17 L (22-30) mmol/L BUN 52 H (7-17) mg/dL Creatinine 3.3 H (0.7-1.2) mg/dL Glucose 263 H (65-100) mg/dL Calcium 8.4 (8.4-10.2) mg/dL AST 164 H (5-40) units/L ALT 47 (7-56) units/L Alkaline Phosphatase 89 (35-129) units/L Total Protein 5.6 L (6.3-8.2) g/dL Albumin 2.5 L (3.9-5) g/dL Assessment and Plan NSTEMI Congestive heart failure: LV function currently unknown Renal Failure Htn Recommend: Continue Aspirin, IV nitrates, beta abril, and systemic anticoagulation with IV heparin Check lipids and continue statin Nephrology evaluation Check Echocardiogram Patient will need eventual cardiac catheterization once renal function is optimized unless decision is made to not pursue invasive treatment.
[2016-11-08 13:17] LABS: Hematocrit 23.7 % (30.3-42.9)
[2016-11-08 13:28] LABS: INR 1.34 (0.87-1.13)
[2016-11-08 13:29] LABS: Partial Thromboplastin Time 38.5 Sec. (24.2-36.6)
[2016-11-08 14:30] LABS: Bilirubin,Urine NEG (Negative); Blood,Urine LG (Negative); Ketones,Urine NEG (Negative); Leukocyte Esterase,Urine MOD (Negative); Nitrite,Urine NEG (Negative); Urobilinogen,Urine < 2.0 mg/dL (<2.0)
[2016-11-08 14:40] LABS: RBC,Urine > 182.0 /HPF (0.0-6.0)
[2016-11-08 17:44] LABS: Creatine Kinase MB 91.7 ng/mL (0.0-4.0)
[2016-11-08] MEDS: LASIX IV SCH (17:54)
[2016-11-08] MEDS: NAMENDA XR PO SCH (18:12)
--- NOTE | 2016-11-08 18:40 | Consultation ---
History of Present Illness Consult date: 11/08/16 Requesting physician: HEIDI KENDRICK Reason for consult: other (Acute Hypoxemic Respiratory Failure) History of present illness: PULMONARY/CCM CONSULT NOTE (Full dictation # [id number]) Please see dictated notes for full details Past History Past Medical History: hypertension, other (DM, CVA ) Past Surgical History: hysterectomy Social history: denies: smoking, alcohol abuse, prescription drug abuse, IV drug use Family history: denies: no significant family history Medications and Allergies Allergies Allergy/AdvReac Type Severity Reaction Status Date / Time No Known Allergies Allergy Unverified 02/25/15 10:42 Home Medications Medication Instructions Recorded Confirmed Last Taken Type Alendronate Sodium 70 mg PO QWEEK 02/25/15 11/08/16 1 Day Ago History Aspirin BABY CHEW TAB 81 mg PO DAILY 02/25/15 11/08/16 1 Day Ago History Calcium + Vitamin D3 Gummies 600 mg PO DAILY 02/25/15 11/08/16 1 Day Ago History Carvedilol 25 mg PO BID 02/25/15 11/08/16 1 Day Ago History Hydralazine HCl 50 mg PO TID 02/25/15 11/08/16 1 Day Ago History Memantine (Nf) [Namenda (Nf)] 10 mg PO DAILY 02/25/15 11/08/16 1 Day Ago History Potassium Chloride [Klor-Con M20] 20 meq PO DAILY 02/25/15 11/08/16 1 Day Ago History Simvastatin 20 mg PO DAILY 02/25/15 11/08/16 1 Day Ago History Valsartan 320 mg PO DAILY 02/25/15 11/08/16 1 Day Ago History amLODIPine 10 mg PO DAILY 02/25/15 11/08/16 1 Day Ago History traMADol [Ultram] 50 mg PO Q4HR PRN #12 tablet 03/25/16 11/08/16 1 Day Ago Rx Loratadine 10 mg PO DAILY 11/08/16 11/08/16 1 Day Ago History Active Meds: Active Medications Acetaminophen (Tylenol) 650 mg PO Q4H PRN PRN Reason: Pain MILD(1-3)/Fever >100.5/PAREKH Albuterol (Proventil) 2.5 mg IH Q3HRT PRN PRN Reason: Shortness Of Breath Albuterol/Ipratropium (Duoneb *Not For Prn Use*) 1 ampul IH Q6HRT [facility] Last Admin: 11/08/16 15:38 Dose: 1 ampul Amlodipine Besylate (Norvasc) 10 mg PO DAILY [facility] Last Admin: 11/08/16 09:15 Dose: 10 mg Bisacodyl (Dulcolax) 10 mg [place] QDAY PRN PRN Reason: Constipation unrelieved by MOM Calcium/Vitamin D (Oysco D 500 Mg-200 Unit) 1 each PO QDAY [facility] Last Admin: 11/08/16 10:09 Dose: 1 each Carvedilol (Coreg) 25 mg PO BID [facility] Last Admin: 11/08/16 09:15 Dose: 25 mg Furosemide (Lasix) 40 mg IV 0600,1800 [facility] Last Admin: 11/08/16 17:54 Dose: Not Given Hydralazine HCl (Apresoline) 50 mg PO TID [facility] Last Admin: 11/08/16 14:03 Dose: 50 mg Nitroglycerin/Dextrose (Tridil Drip 50mg/250ml) 50 mg in 250 mls @ 3 mls/hr IV TITR RADHA; 10 MCG/MIN PRN Reason: Protocol Last Titration: 11/08/16 15:41 Dose: 50 mcg/min, 15 mls/hr Piperacillin Sod/Tazobactam Sod (Zosyn/Ns 2.25 Gm/50ml) 2.25 gm in 50 mls @ 100 mls/hr IV Q8HR RADHA PRN Reason: Protocol Last Admin: 11/08/16 14:04 Dose: 100 mls/hr Heparin Sodium/Sodium Chloride (Heparin/ 0.45% Nacl-25,000 Unit/500 Ml) 25,000 unit in 500 mls @ 20 mls/hr IV TITR RADHA; 1,000 UNITS/HR PRN Reason: Protocol Last Admin: 11/08/16 10:09 Dose: 1,000 units/hr, 20 mls/hr Magnesium Hydroxide (Milk Of Magnesia) 30 ml PO Q4H PRN PRN Reason: Constipation Memantine (Namenda Xr) 14 mg PO QDAY [facility] Last Admin: 11/08/16 18:12 Dose: 14 mg Methylprednisolone Sodium Succinate (Solu-Medrol) 125 mg IV Q8HR [facility] Last Admin: 11/08/16 14:04 Dose: 125 mg Ondansetron HCl (Zofran) 4 mg IV Q8H PRN PRN Reason: N/V unrelieved by Reglan Oxycodone/Acetaminophen (Percocet 5/325) 1 tab PO Q6H PRN PRN Reason: Pain, Moderate (4-6) Potassium Chloride (K-Dur) 20 meq PO Q12HR [facility] Last Admin: 11/08/16 11:31 Dose: Not Given Simvastatin (Zocor) 20 mg PO DAILY [facility] Last Admin: 11/08/16 09:15 Dose: 20 mg Tramadol HCl (Ultram) 50 mg PO Q4H PRN PRN Reason: Pain Valsartan (Diovan) 320 mg PO DAILY [facility] Last Admin: 11/08/16 09:14 Dose: 320 mg Zolpidem Tartrate (Ambien) 5 mg PO QHS PRN PRN Reason: Insomnia Physical Examination Vital signs: Vital Signs Pulse Ox 94 11/07/16 15:29 Results - Laboratory Findings CBC and BMP: 11/08/16 12:04 11/08/16 06:45 ABG POC ABG pH 7.371 (7.35-7.45) 11/07/16 18:14 POC ABG pCO2 27.0 (35-45) L 11/07/16 18:14 POC ABG pO2 124 (80-105) H 11/07/16 18:14 POC ABG HCO3 15.6 11/07/16 18:14 POC ABG Total CO2 16 11/07/16 18:14 POC ABG O2 Sat 99 11/07/16 18:14 PT/INR, D-dimer PT 16.5 Sec. (12.2-14.9) H 11/08/16 12:04 INR 1.34 (0.87-1.13) H 11/08/16 12:04 D-Dimer 1575.53 ng/mlDDU (0-234) H 11/07/16 16:35 Abnormal lab findings: Abnormal Labs 11/07/16 11/08/16 11/08/16 21:43 06:45 06:45 RBC 2.37 L Hgb 7.6 L Hct 23.3 L D MCV 98 H Lymph % (Auto) 8.0 L Lymph # 0.5 L Seg Neutrophils % 89.2 H PT INR APTT Carbon Dioxide 17 L BUN 52 H Creatinine 3.3 H Glucose 263 H AST 164 H Total Creatine Kinase 1584 H CK-MB (CK-2) 268.6 H CK-MB (CK-2) Rel Index 16.9 H Total Protein 5.6 L Albumin 2.5 L Urine WBC (Auto) U Epithel Cells (Auto) Urine Creatinine Urine Total Protein 11/08/16 11/08/16 11/08/16 06:45 12:04 12:04 RBC Hgb 8.0 L Hct 23.7 L MCV Lymph % (Auto) Lymph # Seg Neutrophils % PT 16.5 H INR 1.34 H APTT 38.5 H Carbon Dioxide BUN Creatinine Glucose AST Total Creatine Kinase 1273 H CK-MB (CK-2) 182.7 H CK-MB (CK-2) Rel Index 14.3 H Total Protein Albumin Urine WBC (Auto) U Epithel Cells (Auto) Urine Creatinine Urine Total Protein 11/08/16 11/08/16 11/08/16 13:56 13:56 17:09 RBC Hgb Hct MCV Lymph % (Auto) Lymph # Seg Neutrophils % PT INR APTT Carbon Dioxide BUN Creatinine Glucose AST Total Creatine Kinase 947 H CK-MB (CK-2) 91.7 H CK-MB (CK-2) Rel Index 9.6 H Total Protein Albumin Urine WBC (Auto) 25.0 H U Epithel Cells (Auto) 20.0 H Urine Creatinine 161.2 H Urine Total Protein 146 H
[2016-11-08] MEDS: PERCOCET 5/325 PO PRN (21:46)
[2016-11-08] MEDS: PEPCID PO SCH (21:47)
[2016-11-08] MEDS: AMBIEN PO PRN (21:47)
[2016-11-08] MEDS: LEVAQUIN 500MG/100ML 500 MG/100 ML BAG IV SCH (21:53)
[2016-11-09] MEDS: DUONEB *Not for PRN Use IH SCH ×4 (02:01→20:04)
[2016-11-09 03:32] LABS: Hematocrit 26.1 % (30.3-42.9); Hemoglobin 8.6 gm/dl (10.1-14.3)
[2016-11-09] MEDS: LASIX IV SCH (06:11)
[2016-11-09 07:58] LABS: Calcium 7.9 mg/dL (8.4-10.2); Potassium 5.7 mmol/L (3.6-5.0)
--- NOTE | 2016-11-09 08:00 | Ultrasound Report ---
ULTRASOUND RENAL BILATERAL HISTORY: Elevated creatinine, renal insufficiency. TECHNIQUE: transabdominal ultrasound with color Doppler interrogation. FINDINGS: The right kidney measures 9.5 x 4.3 x 4.2cm. Right renal cortex: 0.9cm. The left kidney measures 9.8 x 5.1 x 3.8cm. Left renal cortex: 1.1cm. The kidneys are normal size, contour and position. There is increased renal parenchymal echotexture bilaterally. Corticomedullary differentiation is preserved. There are 2 simple appearing cysts in the mid left kidney measuring 0.9 cm and 1.8 cm. No evidence for mass, shadowing calculus, hydronephrosis or perinephric fluid. Small left pleural effusion is partially imaged. The views of the bladder and the region of the ureters appear normal. IMPRESSION: Renal parenchymal disease. Simple left renal cysts. Small left pleural effusion.
[2016-11-09] MEDS: APRESOLINE PO SCH ×3 (09:50→22:01)
[2016-11-09] MEDS ORDERED: KIONEX PO ONE (10:59)
--- NOTE | 2016-11-09 11:13 | Progress Note ---
Assessment and Plan - Patient Problems (1) Acute pulmonary edema Current Visit: Yes Status: Acute Plan to address problem: Discussed with renal service. with worsening renal failure/indices and worsening respiratory status/dyspnea- she needs ultrafiltration. Vascular access so HD can be initiated. Continue to monitor respiratory status closely. NIPPV as tolerated (2) Acute respiratory failure with hypoxia Current Visit: Yes Status: Acute Plan to address problem: NIPPV Supplemental oxygen, to keep sats>94%. If she does not tolerate NIPPV- use high flow oxygen (3) CKD (chronic kidney disease) stage 4, GFR 15-29 ml/min Current Visit: Yes Status: Chronic Plan to address problem: Per renal service (4) NSTEMI (non-ST elevated myocardial infarction) Current Visit: Yes Status: Acute Plan to address problem: Per cardiology service Cardio-protective measures Subjective Date of service: 11/09/16 Principal diagnosis: NSTEMI Interval history: Seen and examined. Vitals, labs, medications, chart reviewed. Tachypnic with conversational dyspnea Worsening renal function with clinical signs of decompensated heart failure. discussed extensively with renal service the need for ultrafiltration to obviate the need for mechanical ventilatory support- agreeable will expedite today Discussed in interdisciplinary rounds. Objective - Exam Narrative Exam: In Moderate resp distress and was put on BIPAP Vital Signs - 12hr 11/08/16 11/08/16 11/08/16 23:15 23:30 23:40 Temperature Pulse Rate 85 82 93 H Pulse Rate [ Anterior Bilateral Throughout] Pulse Rate [ From Monitor] Pulse Rate [ Left Radial] Pulse Rate [ Right Radial] Respiratory 17 15 22 Rate Respiratory Rate [Anterior Bilateral Throughout] Respiratory Rate [denies pain] Blood Pressure 101/62 95/61 95/61 O2 Sat by Pulse 97 94 86 Oximetry 11/08/16 11/09/16 11/09/16 23:53 00:00 01:00 Temperature 98.6 F Pulse Rate 92 H 81 Pulse Rate [ Anterior Bilateral Throughout] Pulse Rate [ 77 From Monitor] Pulse Rate [ 81 Left Radial] Pulse Rate [ 86 Right Radial] Respiratory 19 17 Rate Respiratory Rate [Anterior Bilateral Throughout] Respiratory 22 Rate [denies pain] Blood Pressure 95/61 95/58 O2 Sat by Pulse 100 100 Oximetry 11/09/16 11/09/16 11/09/16 02:00 02:02 03:00 Temperature Pulse Rate 90 81 Pulse Rate [ 88 Anterior Bilateral Throughout] Pulse Rate [ From Monitor] Pulse Rate [ Left Radial] Pulse Rate [ Right Radial] Respiratory 13 11 L Rate Respiratory 20 Rate [Anterior Bilateral Throughout] Respiratory Rate [denies pain] Blood Pressure 119/65 119/65 O2 Sat by Pulse 100 100 Oximetry 11/09/16 11/09/16 11/09/16 04:00 05:00 06:00 Temperature 97.9 F Pulse Rate 80 82 89 Pulse Rate [ Anterior Bilateral Throughout] Pulse Rate [ From Monitor] Pulse Rate [ Left Radial] Pulse Rate [ Right Radial] Respiratory 14 14 21 Rate Respiratory Rate [Anterior Bilateral Throughout] Respiratory 15 Rate [denies pain] Blood Pressure 95/59 109/63 109/63 O2 Sat by Pulse 100 100 98 Oximetry 11/09/16 11/09/16 11/09/16 07:00 07:30 08:00 Temperature 97.4 F L Pulse Rate 87 78 92 H Pulse Rate [ Anterior Bilateral Throughout] Pulse Rate [ From Monitor] Pulse Rate [ Left Radial] Pulse Rate [ Right Radial] Respiratory 22 12 28 H Rate Respiratory Rate [Anterior Bilateral Throughout] Respiratory Rate [denies pain] Blood Pressure 106/69 106/69 106/69 O2 Sat by Pulse 99 100 100 Oximetry 11/09/16 11/09/16 11/09/16 08:06 08:24 08:30 Temperature Pulse Rate 89 Pulse Rate [ 92 H 87 Anterior Bilateral Throughout] Pulse Rate [ From Monitor] Pulse Rate [ Left Radial] Pulse Rate [ Right Radial] Respiratory 21 Rate Respiratory 20 19 Rate [Anterior Bilateral Throughout] Respiratory Rate [denies pain] Blood Pressure 106/69 O2 Sat by Pulse 99 99 Oximetry 11/09/16 11/09/16 11/09/16 09:00 09:30 09:50 Temperature Pulse Rate 92 H 88 87 Pulse Rate [ Anterior Bilateral Throughout] Pulse Rate [ From Monitor] Pulse Rate [ Left Radial] Pulse Rate [ Right Radial] Respiratory 19 19 Rate Respiratory Rate [Anterior Bilateral Throughout] Respiratory Rate [denies pain] Blood Pressure 106/69 125/59 106/69 O2 Sat by Pulse 98 99 Oximetry Constitutional: appears uncomfortable Eyes: non-icteric ENT: oropharynx moist Neck: supple, JVD Effort: very labored Ascultation: Bilateral: diminished breath sounds, rales Cardiovascular: other (tachycardia) Gastrointestinal: normoactive bowel sounds, soft, non-tender, non-distended Integumentary: normal Extremities: no cyanosis, pink and warm, pulses normal, no ischemia or petechiae , edema Neurologic: normal mental status, non-focal exam Psychiatric: affect normal CBC and BMP: 11/10/16 04:32 11/10/16 10:05 ABG, PT/INR, D-dimer: ABG POC ABG pH 7.371 (7.35-7.45) 11/07/16 18:14 POC ABG pCO2 27.0 (35-45) L 11/07/16 18:14 POC ABG pO2 124 (80-105) H 11/07/16 18:14 POC ABG HCO3 15.6 11/07/16 18:14 POC ABG Total CO2 16 11/07/16 18:14 POC ABG O2 Sat 99 11/07/16 18:14 PT/INR, D-dimer PT 16.5 Sec. (12.2-14.9) H 11/08/16 12:04 INR 1.34 (0.87-1.13) H 11/08/16 12:04 D-Dimer 1575.53 ng/mlDDU (0-234) H 11/07/16 16:35 Abnormal lab findings: Abnormal Labs 11/07/16 11/08/16 11/08/16 21:43 06:45 06:45 RBC 2.37 L Hgb 7.6 L Hct 23.3 L D MCV 98 H Lymph % (Auto) 8.0 L Lymph # 0.5 L Seg Neutrophils % 89.2 H PT INR APTT Sodium Potassium Carbon Dioxide 17 L BUN 52 H Creatinine 3.3 H Glucose 263 H Calcium AST 164 H Total Creatine Kinase 1584 H CK-MB (CK-2) 268.6 H CK-MB (CK-2) Rel Index 16.9 H C-Reactive Protein Total Protein 5.6 L Albumin 2.5 L Urine WBC (Auto) U Epithel Cells (Auto) Urine Creatinine Urine Total Protein 11/08/16 11/08/16 11/08/16 06:45 12:04 12:04 RBC Hgb 8.0 L Hct 23.7 L MCV Lymph % (Auto) Lymph # Seg Neutrophils % PT 16.5 H INR 1.34 H APTT 38.5 H Sodium Potassium Carbon Dioxide BUN Creatinine Glucose Calcium AST Total Creatine Kinase 1273 H CK-MB (CK-2) 182.7 H CK-MB (CK-2) Rel Index 14.3 H C-Reactive Protein Total Protein Albumin Urine WBC (Auto) U Epithel Cells (Auto) Urine Creatinine Urine Total Protein 11/08/16 11/08/16 11/08/16 13:56 13:56 17:09 RBC Hgb Hct MCV Lymph % (Auto) Lymph # Seg Neutrophils % PT INR APTT Sodium Potassium Carbon Dioxide BUN Creatinine Glucose Calcium AST Total Creatine Kinase 947 H CK-MB (CK-2) 91.7 H CK-MB (CK-2) Rel Index 9.6 H C-Reactive Protein Total Protein Albumin Urine WBC (Auto) 25.0 H U Epithel Cells (Auto) 20.0 H Urine Creatinine 161.2 H Urine Total Protein 146 H 11/08/16 11/09/16 11/09/16 17:09 03:19 07:04 RBC Hgb 8.6 L Hct 26.1 L MCV Lymph % (Auto) Lymph # Seg Neutrophils % PT INR APTT Sodium 135 L Potassium 5.7 H D Carbon Dioxide 15 L BUN 70 H Creatinine 5.0 H D Glucose 169 H Calcium 7.9 L AST Total Creatine Kinase CK-MB (CK-2) CK-MB (CK-2) Rel Index C-Reactive Protein 5.80 H Total Protein Albumin Urine WBC (Auto) U Epithel Cells (Auto) Urine Creatinine Urine Total Protein Chest x-ray: image reviewed (pulmonary edema, pleural effusions) Critical care time in (mins) excluding proc time.: 31 Critical care attestation.: If time is entered above; I have spent that time in minutes in the direct care of this critically ill patient, excluding procedure time.
[2016-11-09] MEDS: NAMENDA XR PO SCH (11:16)
[2016-11-09] MEDS: PEPCID PO SCH (11:17)
[2016-11-09] MEDS: HEPARIN/ 0.45% NACL-25,000 UNIT/500 ML 25,000 UNIT/500 ML BAG IV SCH (11:17)
[2016-11-09] MEDS: OYSCO D 500 MG-200 UNIT PO SCH (11:17)
[2016-11-09] MEDS: ZOCOR PO SCH (11:17)
[2016-11-09] MEDS: NORVASC PO SCH (11:19)
[2016-11-09] MEDS: COREG PO SCH ×2 (11:19→22:19)
[2016-11-09] MEDS: KIONEX PO ONE ×2 (11:30→20:10)
--- NOTE | 2016-11-09 12:27 | Progress Note ---
Assessment and Plan (1) NATHALIA vs CKD, Baseline unavailable, ? CRS Current Visit: Yes Status: Acute Plan to address problem: BUN/CR getting worse and is hyperkalemic She has also evidence of fluid overload Discussed with daughter Noreen and she has agreed to dialysis IR consulted for Vascath and dialysis to follow. Renal U/S reviewed. No hydronephrosis Avoid nephrotoxics D/asher Valsartan and Lasix (2) Acute congestive herat failure( EF unknown) Current Visit: Yes Status: Acute Plan to address problem: UF on dialysis Strict I/Os F/u on 2 D echo (3) NSTEMI (non-ST elevated myocardial infarction) Current Visit: Yes Status: Acute Plan to address problem: Management per cardio (4) Acute hypoxic respiratory failure (Pneumonia /pulmonary edema) Current Visit: Yes Status: Acute Antibiotics BiPAP support as needed IV diuretics as mentioned above (5) Essential HTN (hypertension) Current Visit: Yes Status: Chronic Qualifiers: Hypertension type: essential hypertension Qualified Code(s): I10 - Essential (primary) hypertension Plan to address problem: Cont ARB Beta blockers and Hydralazine (6) Metabolic Acidosis likley 2/2 Dx 3 Current Visit: Yes Status: Acute Continue to monitor (7) Dementia Current Visit: Yes Status: Chronic Qualifiers: Dementia type: vascular dementia Alzheimer's disease onset: A Dementia behavioral disturbance: D Plan to address problem: Cont Raquel Discussed with bus company manager Subjective Date of service: 11/09/16 Principal diagnosis: NSTEMI Interval history: +SOB, currently on [place] oxygen. She used BiPAP overnight Objective - Exam Narrative Exam: General appearance: well-developed, well-nourished, appears stated age, frail EENT: PERRL, mucous membranes moist Neck: Present: neck supple, trachea midline. Absent: JVD/HJR, Masses Respiratory: Rales, Decreased Breath Sounds, + wheezing Heart: regular, normal heart rate, S1S2, no murmurs Gastrointestinal: Present: normoactive bowel sounds. Absent: tenderness Integumentary: no rash, warm and dry Neurologic: no focal deficit, alert and oriented x3, gait normal, strength 5/5 Musculoskeletal: Absent: deformities, joint swelling Psychiatric: mood/affect appropriate, cooperative - Vital Signs Vital signs: Vital Signs - 12hr 11/09/16 11/09/16 11/09/16 01:00 02:00 02:02 Temperature Pulse Rate 81 90 Pulse Rate [ 88 Anterior Bilateral Throughout] Respiratory 17 13 Rate Respiratory 20 Rate [Anterior Bilateral Throughout] Respiratory Rate [denies pain] Blood Pressure 95/58 119/65 O2 Sat by Pulse 100 100 Oximetry 11/09/16 11/09/16 11/09/16 03:00 04:00 05:00 Temperature 97.9 F Pulse Rate 81 80 82 Pulse Rate [ Anterior Bilateral Throughout] Respiratory 11 L 14 14 Rate Respiratory Rate [Anterior Bilateral Throughout] Respiratory 15 Rate [denies pain] Blood Pressure 119/65 95/59 109/63 O2 Sat by Pulse 100 100 100 Oximetry 11/09/16 11/09/16 11/09/16 06:00 07:00 07:30 Temperature Pulse Rate 89 87 78 Pulse Rate [ Anterior Bilateral Throughout] Respiratory 21 22 12 Rate Respiratory Rate [Anterior Bilateral Throughout] Respiratory Rate [denies pain] Blood Pressure 109/63 106/69 106/69 O2 Sat by Pulse 98 99 100 Oximetry 11/09/16 11/09/16 11/09/16 08:00 08:06 08:24 Temperature 97.4 F L Pulse Rate 92 H Pulse Rate [ 92 H 87 Anterior Bilateral Throughout] Respiratory 28 H Rate Respiratory 20 19 Rate [Anterior Bilateral Throughout] Respiratory Rate [denies pain] Blood Pressure 106/69 O2 Sat by Pulse 100 99 Oximetry 11/09/16 11/09/16 11/09/16 08:30 09:00 09:30 Temperature Pulse Rate 89 92 H 88 Pulse Rate [ Anterior Bilateral Throughout] Respiratory 21 19 19 Rate Respiratory Rate [Anterior Bilateral Throughout] Respiratory Rate [denies pain] Blood Pressure 106/69 106/69 125/59 O2 Sat by Pulse 99 98 99 Oximetry 11/09/16 11/09/16 09:50 11:19 Temperature Pulse Rate 87 73 Pulse Rate [ Anterior Bilateral Throughout] Respiratory Rate Respiratory Rate [Anterior Bilateral Throughout] Respiratory Rate [denies pain] Blood Pressure 106/69 94/65 O2 Sat by Pulse Oximetry - Lab 11/09/16 03:19 11/09/16 07:04 Most recent lab results Calcium 7.9 mg/dL (8.4-10.2) L 11/09/16 07:04 Urine Creatinine 161.2 mg/dL (0.1-20.0) H 11/08/16 13:56 Urine Total Protein 146 mg/dL (5-11.8) H 11/08/16 13:56
[2016-11-09] MEDS ORDERED: NACL 0.9% 1,000 ML IV PRN (12:31)
[2016-11-09] MEDS ORDERED: HEPARIN/NS 5000 UNIT/500ML(CATH LAB) 500 ML IR ONE (14:04)
[2016-11-09] MEDS ORDERED: SUBLIMAZE ONE (14:05)
[2016-11-09] MEDS ORDERED: XYLOCAINE 2% INFILTRATI ONE (14:05)
[2016-11-09] MEDS ORDERED: ANCEF/STERILE WATER 2 GM/20 ML 0 GM/0 ML SYRINGE IV ONE (14:05)
[2016-11-09] MEDS: HEPARIN 10,000 UNITS/10 ML ONE ×2 (14:32→14:33)
--- NOTE | 2016-11-09 14:41 | Progress Note ---
Assessment and Plan - Patient Problems (1) NSTEMI (non-ST elevated myocardial infarction) Current Visit: Yes Status: Acute Plan to address problem: Improving (2) Acute pulmonary edema Current Visit: Yes Status: Acute Plan to address problem: Sec to NSTEMI IV Lasix for now and IV Nitro Improved (3) Acute respiratory failure Current Visit: Yes Status: Resolved Qualifiers: Respiratory failure complication: hypoxia Qualified Code(s): J96.01 - Acute respiratory failure with hypoxia Plan to address problem: Improving (4) Pneumonia Current Visit: Yes Status: Resolved Qualifiers: Pneumonia type: P Aspiration pneumonia type: A Laterality: right Lung location: upper lobe of lung Plan to address problem: Abx Discontinued Pneumonia unlikely (5) HTN (hypertension) Current Visit: Yes Status: Chronic Qualifiers: Hypertension type: essential hypertension Qualified Code(s): I10 - Essential (primary) hypertension Plan to address problem: Cont ARB Beta blockers and Hydralazine (6) HLD (hyperlipidemia) Current Visit: Yes Status: Chronic Qualifiers: Hyperlipidemia type: mixed hyperlipidemia Qualified Code(s): E78.2 - Mixed hyperlipidemia Plan to address problem: On Simvastatin (7) Osteoporosis Current Visit: Yes Status: Chronic Qualifiers: Osteoporosis type: age-related Presence of current pathological fracture: P Encounter type: initial encounter Fracture healing: F Qualified Code(s) : M80.00XA - Age-related osteoporosis with current pathological fracture, unspecified site, initial encounter for fracture Plan to address problem: Will hold Alendronate till discharge (8) Dementia Current Visit: Yes Status: Chronic Qualifiers: Dementia type: vascular dementia Alzheimer's disease onset: A Dementia behavioral disturbance: D Plan to address problem: Cont Namenda (9) CKD (chronic kidney disease) stage 4, GFR 15-29 ml/min Current Visit: Yes Status: Chronic Plan to address problem: Stable at baseline Had vascath today HD ?? (10) DVT prophylaxis Current Visit: Yes Status: Acute Plan to address problem: On IV Heparin (11) Discharge planning issues Current Visit: Yes Status: Acute Plan to address problem: Patient more stable.Sitting and talking.Transfer to Floor.Had vascath today .Patient maybe discharged in 24 to 48 hrs if Nephrolgy and cardiology agree.HD arrangements to be made by Case management. Subjective Date of service: 11/09/16 Principal diagnosis: NSTEMI Interval history: SOB lot better compared to last evening.Off Bipap.Comfortable and talking.Daughter at bedside .S/p Vas Cath Objective - Exam Narrative Exam: In Moderate resp distress and was put on BIPAP for possible intubation - Constitutional Vitals: Vital Signs - 12hr 11/09/16 11/09/16 11/09/16 03:00 04:00 05:00 Temperature 97.9 F Pulse Rate 81 80 82 Pulse Rate [ Anterior Bilateral Throughout] Respiratory 11 L 14 14 Rate Respiratory Rate [Anterior Bilateral Throughout] Respiratory 15 Rate [denies pain] Blood Pressure 119/65 95/59 109/63 O2 Sat by Pulse 100 100 100 Oximetry 11/09/16 11/09/16 11/09/16 06:00 07:00 07:30 Temperature Pulse Rate 89 87 78 Pulse Rate [ Anterior Bilateral Throughout] Respiratory 21 22 12 Rate Respiratory Rate [Anterior Bilateral Throughout] Respiratory Rate [denies pain] Blood Pressure 109/63 106/69 106/69 O2 Sat by Pulse 98 99 100 Oximetry 11/09/16 11/09/16 11/09/16 08:00 08:06 08:24 Temperature 97.4 F L Pulse Rate 92 H Pulse Rate [ 92 H 87 Anterior Bilateral Throughout] Respiratory 28 H Rate Respiratory 20 19 Rate [Anterior Bilateral Throughout] Respiratory Rate [denies pain] Blood Pressure 106/69 O2 Sat by Pulse 100 99 Oximetry 11/09/16 11/09/16 11/09/16 08:30 09:00 09:30 Temperature Pulse Rate 89 92 H 88 Pulse Rate [ Anterior Bilateral Throughout] Respiratory 21 19 19 Rate Respiratory Rate [Anterior Bilateral Throughout] Respiratory Rate [denies pain] Blood Pressure 106/69 106/69 125/59 O2 Sat by Pulse 99 98 99 Oximetry 11/09/16 11/09/16 11/09/16 09:50 10:00 10:30 Temperature Pulse Rate 87 90 75 Pulse Rate [ Anterior Bilateral Throughout] Respiratory 15 13 Rate Respiratory Rate [Anterior Bilateral Throughout] Respiratory Rate [denies pain] Blood Pressure 106/69 125/59 117/80 O2 Sat by Pulse 99 99 Oximetry 11/09/16 11/09/16 11/09/16 11:00 11:19 11:30 Temperature Pulse Rate 75 73 82 Pulse Rate [ Anterior Bilateral Throughout] Respiratory 14 17 Rate Respiratory Rate [Anterior Bilateral Throughout] Respiratory Rate [denies pain] Blood Pressure 117/80 94/65 94/65 O2 Sat by Pulse 98 98 Oximetry 11/09/16 11/09/16 11/09/16 12:00 12:30 13:18 Temperature 97.6 F Pulse Rate 75 71 Pulse Rate [ 73 Anterior Bilateral Throughout] Respiratory 13 12 Rate Respiratory 15 Rate [Anterior Bilateral Throughout] Respiratory Rate [denies pain] Blood Pressure 94/65 123/86 O2 Sat by Pulse 100 99 Oximetry 11/09/16 13:46 Temperature Pulse Rate Pulse Rate [ 83 Anterior Bilateral Throughout] Respiratory Rate Respiratory 15 Rate [Anterior Bilateral Throughout] Respiratory Rate [denies pain] Blood Pressure O2 Sat by Pulse Oximetry General appearance: Present: no acute distress, well-nourished - EENT Eyes: PERRL, EOM intact ENT: hearing intact, clear oral mucosa Ears: bilateral: normal - Neck Neck: supple, normal ROM - Respiratory Respiratory effort: normal Respiratory: bilateral: CTA - Breasts Breasts: normal - Cardiovascular Rhythm: regular Heart Sounds: Present: S1 & S2. Absent: gallop, rub Extremities: pulses intact, No edema, normal color, Full ROM - Gastrointestinal General gastrointestinal: Present: soft, non-tender, non-distended, normal bowel sounds - Genitourinary Female genitourinary: normal - Integumentary Integumentary: clear, warm, dry - Musculoskeletal Musculoskeletal: 1, strength equal bilaterally - Neurologic Neurologic: moves all extremities - Psychiatric Psychiatric: memory intact, appropriate mood/affect, intact judgment & insight - Labs CBC & Chem 7: 11/09/16 03:19 11/09/16 07:04 Labs: Abnormal lab results 11/08/16 11/08/16 11/08/16 Range/Units 13:56 13:56 17:09 Hgb (10.1-14.3) gm/dl Hct (30.3-42.9) % Sodium (137-145) mmol/L Potassium (3.6-5.0) mmol/L Carbon Dioxide (22-30) mmol/L BUN (7-17) mg/dL Creatinine (0.7-1.2) mg/dL Glucose (65-100) mg/dL Calcium (8.4-10.2) mg/dL Total Creatine Kinase 947 H (30-135) units/L CK-MB (CK-2) 91.7 H (0.0-4.0) ng/mL CK-MB (CK-2) Rel Index 9.6 H (0-4) C-Reactive Protein (0.00-1.30) mg/dL Urine WBC (Auto) 25.0 H (0.0-6.0) /HPF U Epithel Cells (Auto) 20.0 H (0-13.0) /HPF Urine Creatinine 161.2 H (0.1-20.0) mg/dL Urine Total Protein 146 H (5-11.8) mg/dL 11/08/16 11/09/16 11/09/16 Range/Units 17:09 03:19 07:04 Hgb 8.6 L (10.1-14.3) gm/dl Hct 26.1 L (30.3-42.9) % Sodium 135 L (137-145) mmol/L Potassium 5.7 H D (3.6-5.0) mmol/L Carbon Dioxide 15 L (22-30) mmol/L BUN 70 H (7-17) mg/dL Creatinine 5.0 H D (0.7-1.2) mg/dL Glucose 169 H (65-100) mg/dL Calcium 7.9 L (8.4-10.2) mg/dL Total Creatine Kinase (30-135) units/L CK-MB (CK-2) (0.0-4.0) ng/mL CK-MB (CK-2) Rel Index (0-4) C-Reactive Protein 5.80 H (0.00-1.30) mg/dL Urine WBC (Auto) (0.0-6.0) /HPF U Epithel Cells (Auto) (0-13.0) /HPF Urine Creatinine (0.1-20.0) mg/dL Urine Total Protein (5-11.8) mg/dL
--- NOTE | 2016-11-09 14:41 | Operative Report ---
Operative Report Operative Report: EXAM: ULTRASOUND-GUIDED PLACEMENT OF VAS-CATH CLINICAL INDICATION: ACUTE RENAL FAILURE ON CHRONIC RENAL FAILURE REQUIRING DIALYSIS ACCESS DATE: 11/09/2016 PROCEDURE: Following an explanation of the risks, benefits and alternatives; written informed consent was obtained. The patient was brought to the angiographic suite and placed in supine position on her stretcher. Initial ultrasound evaluation of the right neck and a straight a widely patent right internal jugular vein. The right neck was prepped and draped in the usual sterile fashion. 1% lidocaine was used for anesthesia. Under ultrasound guidance, the right internal jugular vein was cannulated with a 7 cm 18-gauge needle. A 0.035 guidewire was advanced centrally easily. The needle was removed. Following serial dilation, and 11.5 [place] pre-curved 15 cm Vas-Cath was placed over the guidewire and advanced centrally easily. Nonpulsatile blood return from both ports. The catheter was flushed and aspirated with sterile saline and then locked with appropriate volumes of heparin. Catheter was securely fastened of the neck using 2-0 silk suture and a sterile dressing applied. The patient tolerated the procedure well. There were no immediate post procedure complications. A post procedure chest x-ray was ordered. Continuous cardiopulmonary monitoring was utilized. No sedation was given secondary to patient's non-nothing by mouth status. IMPRESSION: 1) Ultrasound-guided placement of Vas-Cath via the right internal jugular vein.
--- NOTE | 2016-11-09 14:47 | Progress Note ---
Assessment and Plan - Patient Problems (1) NSTEMI (non-ST elevated myocardial infarction) Current Visit: Yes Status: Acute Plan to address problem: Patient has a non-ST elevation myocardial infarction and fluid overload, in the setting of multiple comorbidities. She has severe renal failure, creatinine of 3.2 on presentation has not elevated to 5.0. She also has marked anemia with a hematocrit of 23. At this time, we'll manage cardiac coronary disease with medical therapy. No aggressive or invasive cardiac workup in the setting of worsening renal failure and severe anemia. (2) Proptosis Current Visit: Yes Status: Acute Plan to address problem: The patient has severe proptosis, it will be prudent to get a thyroid profile to rule out hyperthyroidism. Subjective Date of service: 11/09/16 Principal diagnosis: NSTEMI Interval history: The patient is lethargic, in the ICU on oxygen facemask. There is no acute respiratory distress. On telemetry, she has a sinus rhythm with a bundle branch block, and stable blood pressure. Objective Vital Signs Temp Pulse Pulse Pulse Pulse Pulse Resp 11/09/16 13:46 83 11/09/16 13:18 73 11/09/16 12:30 71 12 11/09/16 12:00 97.6 F 75 13 11/09/16 11:30 82 17 11/09/16 11:19 73 11/09/16 11:00 75 14 11/09/16 10:30 75 13 11/09/16 10:00 90 15 11/09/16 09:50 87 11/09/16 09:30 88 19 11/09/16 09:00 92 H 19 11/09/16 08:30 89 21 11/09/16 08:24 87 11/09/16 08:06 92 H 11/09/16 08:00 97.4 F L 92 H 28 H 11/09/16 07:30 78 12 11/09/16 07:00 87 22 11/09/16 06:00 89 21 11/09/16 05:00 82 14 11/09/16 04:00 97.9 F 80 14 11/09/16 03:00 81 11 L 11/09/16 02:02 88 11/09/16 02:00 90 13 11/09/16 01:00 81 17 11/09/16 00:00 92 H 77 81 86 19 11/08/16 23:53 98.6 F 11/08/16 23:40 93 H 22 11/08/16 23:30 82 15 11/08/16 23:15 85 17 11/08/16 23:00 86 19 17 22:45 96 H 14 11/08/16 22:30 90 29 H 11/08/16 22:15 91 H 21 11/08/16 22:00 91 H 15 11/08/16 21:49 91 H 24 11/08/16 21:46 98 H 15 11/08/16 21:45 90 11/08/16 21:44 90 11/08/16 21:30 90 18 11/08/16 21:29 76 11/08/16 21:15 90 20 11/08/16 21:00 93 H 16 11/08/16 20:46 98 H 25 H 11/08/16 20:35 96 H 11/08/16 20:30 97 H 23 11/08/16 20:15 96 H 14 11/08/16 20:00 98.1 F 97 H 26 H 11/08/16 19:45 89 16 11/08/16 19:30 89 14 11/08/16 19:15 96 H 20 11/08/16 19:00 92 H 22 11/08/16 18:46 96 H 33 H 11/08/16 18:30 97 H 21 11/08/16 18:16 96 H 15 11/08/16 18:00 97 H 29 H 11/08/16 17:45 92 H 21 11/08/16 17:30 89 14 11/08/16 17:16 94 H 26 H 17 17:00 96 H 13 1617 16:46 96 H 25 H 1617 16:30 92 H 18 1617 16:15 90 20 16 16:06 96 H 25 H 11/08/16 16:00 98.5 F 105 H 18 1617 15:58 102 H 1617 15:46 104 H 18 1617 15:36 101 H 1617 15:30 93 H 21 17 15:16 107 H 19 1617 15:00 92 H 19 07/16/17 14:45 90 16 Resp Resp BP Pulse Ox 11/09/16 13:46 15 11/09/16 13:18 15 11/09/16 12:30 123/86 99 11/09/16 12:00 94/65 100 11/09/16 11:30 94/65 98 11/09/16 11:19 94/65 11/09/16 11:00 117/80 98 11/09/16 10:30 117/80 99 11/09/16 10:00 125/59 99 11/09/16 09:50 106/69 11/09/16 09:30 125/59 99 11/09/16 09:00 106/69 98 11/09/16 08:30 106/69 99 11/09/16 08:24 19 11/09/16 08:06 20 99 11/09/16 08:00 106/69 100 11/09/16 07:30 106/69 100 11/09/16 07:00 106/69 99 11/09/16 06:00 109/63 98 11/09/16 05:00 109/63 100 11/09/16 04:00 15 95/59 100 11/09/16 03:00 119/65 100 11/09/16 02:02 20 11/09/16 02:00 119/65 100 11/09/16 01:00 95/58 100 11/09/16 00:00 22 95/61 100 11/08/16 23:53 11/08/16 23:40 95/61 86 11/08/16 23:30 95/61 94 11/08/16 23:15 101/62 97 11/08/16 23:00 105/66 96 11/08/16 22:45 106/74 98 11/08/16 22:30 104/71 96 11/08/16 22:15 107/72 98 11/08/16 22:00 97/60 97 11/08/16 21:49 97 11/08/16 21:46 92/63 98 11/08/16 21:45 92/63 11/08/16 21:44 92/63 11/08/16 21:30 92/63 98 11/08/16 21:29 11/08/16 21:15 96/60 98 11/08/16 21:00 100/63 97 11/08/16 20:46 97/78 95 11/08/16 20:35 22 11/08/16 20:30 97/78 99 17 20:15 109/69 98 11/08/16 20:00 100/62 98 17 19:45 101/58 98 11/08/16 19:30 105/64 99 1617 19:15 100/59 96 11/08/16 19:00 98/56 98 1617 18:46 102/58 99 1617 18:30 103/61 99 17 18:16 98/62 99 17 18:00 98/62 98 17 17:45 95/60 98 11/08/16 17:30 94/57 98 11/08/16 17:16 95/53 98 11/08/16 17:00 95/53 98 1617 16:46 88/56 98 1617 16:30 88/56 98 11/08/16 16:15 103/57 98 11/08/16 16:06 104/56 98 11/08/16 16:00 64/23 97 17 15:58 24 11/08/16 15:46 64/23 98 17 15:36 23 11/08/16 15:30 111/56 98 17 15:16 97/71 99 11/08/16 15:00 107/53 97 17 14:45 107/53 97 - Physical Examination General: Cachectic HEENT: Positive: PERRL, EOMI Neck: Positive: neck supple, trachea midline. Negative: JVD/HJR, Masses Cardiac: Positive: Reg Rate and Rhythm Lungs: Positive: Decreased Breath Sounds Neuro: Positive: Grossly Intact Abdomen: Positive: Soft, Active Bowel Sounds Skin: Positive: Clear Extremities: Present: +1 Edema - Labs and Meds Cardiac Enzymes 11/08/16 Range/Units 17:09 CK-MB (CK-2) 91.7 H (0.0-4.0) ng/mL CBC 11/09/16 Range/Units 03:19 Hgb 8.6 L (10.1-14.3) gm/dl Hct 26.1 L (30.3-42.9) % Plt Count 156 (140-440) K/mm3 Comprehensive Metabolic Panel 11/09/16 Range/Units 07:04 Sodium 135 L (137-145) mmol/L Potassium 5.7 H D (3.6-5.0) mmol/L Chloride 101.0 (98-107) mmol/L Carbon Dioxide 15 L (22-30) mmol/L BUN 70 H (7-17) mg/dL Creatinine 5.0 H D (0.7-1.2) mg/dL Glucose 169 H (65-100) mg/dL Calcium 7.9 L (8.4-10.2) mg/dL - Imaging and Cardiology EKG: report reviewed (Sinus Tach pvc's LVH 119/min Repolarization abnormalities)
[2016-11-10] MEDS: DUONEB *Not for PRN Use IH SCH ×4 (02:18→20:51)
[2016-11-10 05:12] LABS: Hematocrit 25.6 % (30.3-42.9); Hemoglobin 8.4 gm/dl (10.1-14.3)
--- NOTE | 2016-11-10 07:59 | Vascular Lab Report ---
MISCELLANEOUS VESSEL IDENTIFICATION: COMMENTS ON THE SCAN: The right internal jugular vein was identified and under real-time ultrasound guidance was cannulated. IMPRESSION: Successful ultrasound guided vein cannulation.
--- NOTE | 2016-11-10 08:03 | XRay Report ---
AP CHEST: 11/09/16 14:46 CLINICAL: Central line insertion. COMPARISON: 11/07/16 FINDINGS: Since the recent exam, a right Vas-Cath has been inserted and the catheter tip is in the right atrium. Cardia megaly, central vascular congestion and multilobar pulmonary edema without change.No pneumothorax. IMPRESSION: Satisfactory placement of Vas-Cath. No pneumothorax.
[2016-11-10] MEDS ORDERED: NACL 0.9% 100 ML IV PRN ×3 (10:06→12:42)
[2016-11-10] MEDS: ZOCOR PO SCH (10:46)
[2016-11-10] MEDS: NAMENDA XR PO SCH (10:46)
[2016-11-10] MEDS: APRESOLINE PO SCH ×3 (10:47→21:06)
[2016-11-10] MEDS: OYSCO D 500 MG-200 UNIT PO SCH (10:47)
[2016-11-10] MEDS: PEPCID PO SCH (10:47)
[2016-11-10] MEDS: NORVASC PO SCH (11:00)
[2016-11-10] MEDS: COREG PO SCH ×2 (11:00→22:55)
[2016-11-10 11:25] LABS: BUN/Creatinine Ratio 14.09; Chloride 97.2 mmol/L (98-107); Potassium 3.7 mmol/L (3.6-5.0)
--- NOTE | 2016-11-10 12:30 | Progress Note ---
Assessment and Plan - Patient Problems (1) NSTEMI (non-ST elevated myocardial infarction) Current Visit: Yes Status: Acute Plan to address problem: Patient has a non-ST elevation myocardial infarction and fluid overload, in the setting of multiple comorbidities. She has severe renal failure, creatinine of 3.2 on presentation has now elevated to 5.0. She also has marked anemia with a hematocrit of 23. We will continue medical management of cardiac disease, patient is currently on hemodialysis. Further cardiac evaluation and therapy for the non-ST elevation myocardial infarction would depend on clinical course. (2) Proptosis Current Visit: Yes Status: Acute Plan to address problem: TSH is normal. Subjective Date of service: 11/10/16 Principal diagnosis: NSTEMI Interval history: Patient is breathing comfortably on nasal oxygen, currently in hemodialysis. No new cardiac complaints. On the monitor, she is in a stable normal sinus rhythm, with stable hemodynamics. Objective Vital Signs Temp Pulse Pulse Pulse Resp Resp BP 11/10/16 12:00 84 141/77 11/10/16 11:45 86 149/75 11/10/16 11:30 87 143/75 11/10/16 11:15 87 173/64 11/10/16 11:10 85 154/91 11/10/16 11:01 87 15 154/91 11/10/16 11:00 85 145/97 11/10/16 10:39 97.6 F 89 15 145/80 11/10/16 10:31 90 20 145/80 11/10/16 10:01 94 H 20 138/80 11/10/16 09:31 93 H 16 138/80 11/10/16 09:00 87 14 138/80 11/10/16 08:59 87 20 11/10/16 08:42 86 20 11/10/16 08:40 11/10/16 08:31 83 14 126/87 11/10/16 08:00 97.6 F 86 15 131/86 11/10/16 07:31 86 17 126/87 11/10/16 07:00 86 14 126/87 11/10/16 06:31 92 H 16 140/89 11/10/16 06:00 90 19 140/89 11/10/16 05:31 85 14 137/90 11/10/16 05:00 89 16 137/90 11/10/16 04:56 85 12 126/75 11/10/16 04:31 88 19 126/75 11/10/16 04:10 19 11/10/16 04:00 98.4 F 80 17 126/75 11/10/16 03:30 80 13 133/92 11/10/16 03:00 83 22 133/92 11/10/16 02:51 78 20 11/10/16 02:31 82 16 129/85 11/10/16 02:19 82 27 H 11/10/16 02:00 81 15 129/85 11/10/16 01:31 78 24 129/82 11/10/16 01:00 80 18 129/82 11/10/16 00:31 81 15 124/78 11/10/16 00:09 77 17 11/10/16 00:00 97.5 F L 81 16 124/78 11/09/16 23:59 78 13 134/77 11/09/16 23:56 84 16 134/77 11/09/16 23:31 82 15 134/77 11/09/16 23:00 88 16 134/77 11/09/16 22:34 85 15 11/09/16 22:19 124/73 11/09/16 22:15 97.4 F L 82 15 114/71 11/09/16 22:00 88 12 114/71 11/09/16 21:45 79 115/75 11/09/16 21:30 79 84 13 115/75 11/09/16 21:15 81 122/81 11/09/16 21:00 81 13 122/74 11/09/16 20:45 80 119/80 11/09/16 20:30 82 13 95/71 11/09/16 20:20 84 16 11/09/16 20:15 77 106/74 11/09/16 20:04 82 16 11/09/16 20:00 97.4 F L 77 18 104/80 11/09/16 19:45 76 115/73 11/09/16 19:30 76 14 96/78 11/09/16 19:15 97.4 F L 81 15 96/78 11/09/16 19:00 81 15 132/96 11/09/16 18:30 73 15 132/96 11/09/16 18:00 74 16 97/70 11/09/16 17:30 80 16 97/70 11/09/16 17:00 75 14 97/70 11/09/16 16:30 83 11 L 109/76 11/09/16 16:00 97.0 F L 73 76 12 123/80 11/09/16 15:30 89 11 L 123/80 11/09/16 15:10 86 108/78 11/09/16 15:00 74 14 122/77 11/09/16 14:56 123/80 11/09/16 13:46 83 15 11/09/16 13:30 76 14 123/80 11/09/16 13:18 73 15 11/09/16 13:00 75 14 123/80 11/09/16 12:30 71 12 123/86 Pulse Ox Pulse Ox 11/10/16 12:00 11/10/16 11:45 11/10/16 11:30 11/10/16 11:15 11/10/16 11:10 11/10/16 11:01 99 11/10/16 11:00 11/10/16 10:39 11/10/16 10:31 98 11/10/16 10:01 98 11/10/16 09:31 98 11/10/16 09:00 99 11/10/16 08:59 11/10/16 08:42 11/10/16 08:40 99 11/10/16 08:31 99 11/10/16 08:00 100 11/10/16 07:31 99 11/10/16 07:00 98 11/10/16 06:31 98 11/10/16 06:00 100 11/10/16 05:31 100 1817 05:00 100 1817 04:56 100 17 04:31 100 1817 04:10 100 17 04:00 100 17 03:30 100 1817 03:00 100 17 02:51 11/10/16 02:31 100 1817 02:19 11/10/16 02:00 100 1817 01:31 100 1817 01:00 100 17 00:31 100 11/10/16 00:09 100 11/10/16 00:00 11/09/16 23:59 100 11/09/16 23:56 100 11/09/16 23:31 100 11/09/16 23:00 100 11/09/16 22:34 100 11/09/16 22:19 11/09/16 22:15 99 11/09/16 22:00 100 11/09/16 21:45 11/09/16 21:30 99 11/09/16 21:15 11/09/16 21:00 98 11/09/16 20:45 11/09/16 20:30 99 11/09/16 20:20 11/09/16 20:15 11/09/16 20:04 100 11/09/16 20:00 100 11/09/16 19:45 11/09/16 19:30 99 11/09/16 19:15 100 11/09/16 19:00 100 11/09/16 18:30 100 11/09/16 18:00 100 11/09/16 17:30 99 11/09/16 17:00 100 11/09/16 16:30 100 11/09/16 16:00 100 11/09/16 15:30 100 11/09/16 15:10 11/09/16 15:00 99 11/09/16 14:56 100 11/09/16 13:46 11/09/16 13:30 98 11/09/16 13:18 11/09/16 13:00 99 11/09/16 12:30 99 - Physical Examination General: No Apparent Distress, Cachectic HEENT: Positive: PERRL, EOMI Neck: Positive: neck supple, trachea midline. Negative: JVD/HJR, Masses Cardiac: Positive: Reg Rate and Rhythm Lungs: Positive: Decreased Breath Sounds Neuro: Positive: Grossly Intact Abdomen: Positive: Soft, Active Bowel Sounds Skin: Positive: Clear Extremities: Present: +1 Edema - Labs and Meds CBC 11/10/16 Range/Units 04:32 Hgb 8.4 L (10.1-14.3) gm/dl Hct 25.6 L (30.3-42.9) % Plt Count 111 L (140-440) K/mm3 Comprehensive Metabolic Panel 11/10/16 Range/Units 10:05 Sodium 137 (137-145) mmol/L Potassium 3.7 D (3.6-5.0) mmol/L Chloride 97.2 L (98-107) mmol/L Carbon Dioxide 22 D (22-30) mmol/L BUN 62 H (7-17) mg/dL Creatinine 4.4 H (0.7-1.2) mg/dL Glucose 206 H (65-100) mg/dL Calcium 7.0 L (8.4-10.2) mg/dL - Imaging and Cardiology EKG: report reviewed (Sinus Tach pvc's LVH 119/min Repolarization abnormalities)
[2016-11-10] MEDS: HEPARIN IV PRN (13:03)
[2016-11-10] MEDS ORDERED: NACL 0.9 (PRIMING MACHINE ONLY DIALYSIS) MC ONE (14:51)
--- NOTE | 2016-11-10 15:20 | Progress Note ---
Assessment and Plan - Patient Problems (1) Acute pulmonary edema Current Visit: Yes Status: Acute Plan to address problem: Improved with UF/HD Continue with supplemental oxygen to keep O2 sats>94% (2) Acute respiratory failure with hypoxia Current Visit: Yes Status: Acute Plan to address problem: Much improved with HD/UF Supplemental oxygen, to keep sats>94%. (3) NSTEMI (non-ST elevated myocardial infarction) Current Visit: Yes Status: Acute Plan to address problem: Per cardiology service Cardio-protective measures (4) CKD (chronic kidney disease) stage 4, GFR 15-29 ml/min Current Visit: Yes Status: Chronic Plan to address problem: Per renal service On HD (5) Thrombocytopenia Current Visit: Yes Status: Acute Plan to address problem: Monitor closely. If the counts drop to >50%, check HIIT antibodies Subjective Date of service: 11/10/16 Principal diagnosis: NSTEMI Interval history: Seen and examined. Vitals, labs, medications, chart reviewed. Much improved. s/p HD yesterday. Discussed in interdisciplinary rounds. Objective - Exam Narrative Exam: Much improved, not in any respiratory distress Vital Signs - 12hr 11/10/16 11/10/16 11/10/16 03:30 04:00 04:10 Temperature 98.4 F Pulse Rate 80 80 Pulse Rate [ Anterior Bilateral Throughout] Respiratory 13 17 19 Rate Respiratory Rate [Anterior Bilateral Throughout] Blood Pressure 133/92 126/75 O2 Sat by Pulse 100 100 100 Oximetry O2 Sat by Pulse Oximetry [ Anterior Bilateral Throughout] O2 Sat by Pulse Oximetry [ Posterior Bilateral Throughout] 11/10/16 11/10/16 11/10/16 04:31 04:56 05:00 Temperature Pulse Rate 88 85 89 Pulse Rate [ Anterior Bilateral Throughout] Respiratory 19 12 16 Rate Respiratory Rate [Anterior Bilateral Throughout] Blood Pressure 126/75 126/75 137/90 O2 Sat by Pulse 100 100 100 Oximetry O2 Sat by Pulse Oximetry [ Anterior Bilateral Throughout] O2 Sat by Pulse Oximetry [ Posterior Bilateral Throughout] 11/10/16 11/10/16 11/10/16 05:31 06:00 06:31 Temperature Pulse Rate 85 90 92 H Pulse Rate [ Anterior Bilateral Throughout] Respiratory 14 19 16 Rate Respiratory Rate [Anterior Bilateral Throughout] Blood Pressure 137/90 140/89 140/89 O2 Sat by Pulse 100 100 98 Oximetry O2 Sat by Pulse Oximetry [ Anterior Bilateral Throughout] O2 Sat by Pulse Oximetry [ Posterior Bilateral Throughout] 11/10/16 11/10/16 11/10/16 07:00 07:31 08:00 Temperature 97.6 F Pulse Rate 86 86 86 Pulse Rate [ Anterior Bilateral Throughout] Respiratory 14 17 15 Rate Respiratory Rate [Anterior Bilateral Throughout] Blood Pressure 126/87 126/87 131/86 O2 Sat by Pulse 98 99 100 Oximetry O2 Sat by Pulse Oximetry [ Anterior Bilateral Throughout] O2 Sat by Pulse Oximetry [ Posterior Bilateral Throughout] 11/10/16 11/10/16 11/10/16 08:31 08:40 08:42 Temperature Pulse Rate 83 Pulse Rate [ 86 Anterior Bilateral Throughout] Respiratory 14 Rate Respiratory 20 Rate [Anterior Bilateral Throughout] Blood Pressure 126/87 O2 Sat by Pulse 99 99 Oximetry O2 Sat by Pulse Oximetry [ Anterior Bilateral Throughout] O2 Sat by Pulse Oximetry [ Posterior Bilateral Throughout] 11/10/16 11/10/16 11/10/16 08:59 09:00 09:31 Temperature Pulse Rate 87 93 H Pulse Rate [ 87 Anterior Bilateral Throughout] Respiratory 14 16 Rate Respiratory 20 Rate [Anterior Bilateral Throughout] Blood Pressure 138/80 138/80 O2 Sat by Pulse 99 98 Oximetry O2 Sat by Pulse Oximetry [ Anterior Bilateral Throughout] O2 Sat by Pulse Oximetry [ Posterior Bilateral Throughout] 11/10/16 11/10/16 11/10/16 10:00 10:01 10:31 Temperature Pulse Rate 91 H 94 H 90 Pulse Rate [ Anterior Bilateral Throughout] Respiratory 20 20 Rate Respiratory Rate [Anterior Bilateral Throughout] Blood Pressure 138/80 145/80 O2 Sat by Pulse 98 98 Oximetry O2 Sat by Pulse Oximetry [ Anterior Bilateral Throughout] O2 Sat by Pulse Oximetry [ Posterior Bilateral Throughout] 11/10/16 11/10/16 11/10/16 10:39 11:00 11:01 Temperature 97.6 F Pulse Rate 89 85 87 Pulse Rate [ Anterior Bilateral Throughout] Respiratory 15 15 Rate Respiratory Rate [Anterior Bilateral Throughout] Blood Pressure 145/80 145/97 154/91 O2 Sat by Pulse 99 Oximetry O2 Sat by Pulse Oximetry [ Anterior Bilateral Throughout] O2 Sat by Pulse Oximetry [ Posterior Bilateral Throughout] 11/10/16 11/10/16 11/10/16 11:10 11:15 11:30 Temperature Pulse Rate 85 87 87 Pulse Rate [ Anterior Bilateral Throughout] Respiratory Rate Respiratory Rate [Anterior Bilateral Throughout] Blood Pressure 154/91 173/64 143/75 O2 Sat by Pulse Oximetry O2 Sat by Pulse Oximetry [ Anterior Bilateral Throughout] O2 Sat by Pulse Oximetry [ Posterior Bilateral Throughout] 11/10/16 11/10/16 11/10/16 11:31 11:45 12:00 Temperature 98.5 F Pulse Rate 86 86 84 Pulse Rate [ Anterior Bilateral Throughout] Respiratory 16 Rate Respiratory Rate [Anterior Bilateral Throughout] Blood Pressure 173/64 149/75 141/77 O2 Sat by Pulse 99 Oximetry O2 Sat by Pulse Oximetry [ Anterior Bilateral Throughout] O2 Sat by Pulse Oximetry [ Posterior Bilateral Throughout] 11/10/16 11/10/16 11/10/16 12:01 12:15 12:30 Temperature Pulse Rate 86 82 86 Pulse Rate [ Anterior Bilateral Throughout] Respiratory 14 Rate Respiratory Rate [Anterior Bilateral Throughout] Blood Pressure 149/75 150/81 136/46 O2 Sat by Pulse 98 Oximetry O2 Sat by Pulse Oximetry [ Anterior Bilateral Throughout] O2 Sat by Pulse Oximetry [ Posterior Bilateral Throughout] 11/10/16 11/10/16 11/10/16 12:31 12:45 12:57 Temperature Pulse Rate 82 83 81 Pulse Rate [ Anterior Bilateral Throughout] Respiratory 16 Rate Respiratory Rate [Anterior Bilateral Throughout] Blood Pressure 136/46 141/75 139/77 O2 Sat by Pulse 97 Oximetry O2 Sat by Pulse Oximetry [ Anterior Bilateral Throughout] O2 Sat by Pulse Oximetry [ Posterior Bilateral Throughout] 11/10/16 11/10/16 11/10/16 13:01 13:12 13:30 Temperature 98.5 F Pulse Rate 84 82 85 Pulse Rate [ Anterior Bilateral Throughout] Respiratory 20 18 Rate Respiratory Rate [Anterior Bilateral Throughout] Blood Pressure 139/77 140/72 136/74 O2 Sat by Pulse 98 Oximetry O2 Sat by Pulse 99 Oximetry [ Anterior Bilateral Throughout] O2 Sat by Pulse 99 Oximetry [ Posterior Bilateral Throughout] 11/10/16 11/10/16 11/10/16 13:31 14:01 14:06 Temperature Pulse Rate 86 89 Pulse Rate [ 88 Anterior Bilateral Throughout] Respiratory 14 16 Rate Respiratory 18 Rate [Anterior Bilateral Throughout] Blood Pressure 140/75 143/82 O2 Sat by Pulse 98 99 Oximetry O2 Sat by Pulse Oximetry [ Anterior Bilateral Throughout] O2 Sat by Pulse Oximetry [ Posterior Bilateral Throughout] 11/10/16 11/10/16 14:10 14:20 Temperature Pulse Rate 91 H Pulse Rate [ 90 Anterior Bilateral Throughout] Respiratory Rate Respiratory 20 Rate [Anterior Bilateral Throughout] Blood Pressure 143/82 O2 Sat by Pulse Oximetry O2 Sat by Pulse Oximetry [ Anterior Bilateral Throughout] O2 Sat by Pulse Oximetry [ Posterior Bilateral Throughout] Constitutional: no acute distress Eyes: non-icteric ENT: oropharynx moist Neck: supple, no JVD Effort: normal Ascultation: Bilateral: diminished breath sounds, rales (basila) Cardiovascular: regular rate and rhythm Gastrointestinal: normoactive bowel sounds, soft, non-distended Integumentary: normal Extremities: no cyanosis, no edema, pink and warm, pulses normal, no ischemia or petechiae Neurologic: normal mental status, non-focal exam Psychiatric: mood appropriate, affect normal CBC and BMP: 11/10/16 04:32 11/10/16 10:05 ABG, PT/INR, D-dimer: ABG POC ABG pH 7.371 (7.35-7.45) 11/07/16 18:14 POC ABG pCO2 27.0 (35-45) L 11/07/16 18:14 POC ABG pO2 124 (80-105) H 11/07/16 18:14 POC ABG HCO3 15.6 11/07/16 18:14 POC ABG Total CO2 16 11/07/16 18:14 POC ABG O2 Sat 99 11/07/16 18:14 PT/INR, D-dimer PT 16.5 Sec. (12.2-14.9) H 11/08/16 12:04 INR 1.34 (0.87-1.13) H 11/08/16 12:04 D-Dimer 1575.53 ng/mlDDU (0-234) H 11/07/16 16:35 Abnormal lab findings: Abnormal Labs 11/07/16 11/08/16 11/08/16 21:43 06:45 06:45 RBC 2.37 L Hgb 7.6 L Hct 23.3 L D MCV 98 H Plt Count Lymph % (Auto) 8.0 L Lymph # 0.5 L Seg Neutrophils % 89.2 H PT INR APTT Heparin Anti-Xa Level Sodium Potassium Chloride Carbon Dioxide 17 L BUN 52 H Creatinine 3.3 H Glucose 263 H Calcium AST 164 H Total Creatine Kinase 1584 H CK-MB (CK-2) 268.6 H CK-MB (CK-2) Rel Index 16.9 H C-Reactive Protein Total Protein 5.6 L Albumin 2.5 L Urine WBC (Auto) U Epithel Cells (Auto) Urine Creatinine Urine Total Protein 11/08/16 11/08/16 11/08/16 06:45 12:04 12:04 RBC Hgb 8.0 L Hct 23.7 L MCV Plt Count Lymph % (Auto) Lymph # Seg Neutrophils % PT 16.5 H INR 1.34 H APTT 38.5 H Heparin Anti-Xa Level Sodium Potassium Chloride Carbon Dioxide BUN Creatinine Glucose Calcium AST Total Creatine Kinase 1273 H CK-MB (CK-2) 182.7 H CK-MB (CK-2) Rel Index 14.3 H C-Reactive Protein Total Protein Albumin Urine WBC (Auto) U Epithel Cells (Auto) Urine Creatinine Urine Total Protein 11/08/16 11/08/16 11/08/16 13:56 13:56 17:09 RBC Hgb Hct MCV Plt Count Lymph % (Auto) Lymph # Seg Neutrophils % PT INR APTT Heparin Anti-Xa Level Sodium Potassium Chloride Carbon Dioxide BUN Creatinine Glucose Calcium AST Total Creatine Kinase 947 H CK-MB (CK-2) 91.7 H CK-MB (CK-2) Rel Index 9.6 H C-Reactive Protein Total Protein Albumin Urine WBC (Auto) 25.0 H U Epithel Cells (Auto) 20.0 H Urine Creatinine 161.2 H Urine Total Protein 146 H 11/08/16 11/09/16 11/09/16 17:09 03:19 07:04 RBC Hgb 8.6 L Hct 26.1 L MCV Plt Count Lymph % (Auto) Lymph # Seg Neutrophils % PT INR APTT Heparin Anti-Xa Level Sodium 135 L Potassium 5.7 H D Chloride Carbon Dioxide 15 L BUN 70 H Creatinine 5.0 H D Glucose 169 H Calcium 7.9 L AST Total Creatine Kinase CK-MB (CK-2) CK-MB (CK-2) Rel Index C-Reactive Protein 5.80 H Total Protein Albumin Urine WBC (Auto) U Epithel Cells (Auto) Urine Creatinine Urine Total Protein 11/09/16 11/10/16 11/10/16 21:00 04:32 07:16 RBC Hgb 8.4 L Hct 25.6 L MCV Plt Count 111 L Lymph % (Auto) Lymph # Seg Neutrophils % PT INR APTT Heparin Anti-Xa Level 0.91 H 0.12 L Sodium Potassium Chloride Carbon Dioxide BUN Creatinine Glucose Calcium AST Total Creatine Kinase CK-MB (CK-2) CK-MB (CK-2) Rel Index C-Reactive Protein Total Protein Albumin Urine WBC (Auto) U Epithel Cells (Auto) Urine Creatinine Urine Total Protein 11/10/16 10:05 RBC Hgb Hct MCV Plt Count Lymph % (Auto) Lymph # Seg Neutrophils % PT INR APTT Heparin Anti-Xa Level Sodium Potassium Chloride 97.2 L Carbon Dioxide BUN 62 H Creatinine 4.4 H Glucose 206 H Calcium 7.0 L AST Total Creatine Kinase CK-MB (CK-2) CK-MB (CK-2) Rel Index C-Reactive Protein Total Protein Albumin Urine WBC (Auto) U Epithel Cells (Auto) Urine Creatinine Urine Total Protein Chest x-ray: report reviewed Allied health notes reviewed: RT
--- NOTE | 2016-11-10 16:54 | Progress Note ---
History Interval history: Patient is a 70 yo woman with a history of Dementia and Hypertension -ARF, needing hemodialysis -NSTEMI: cardiology is following -Acute diastolic failure with p. edema: diuresis -Acute hypoxic respiratory failure: treat with O2 Hospitalist Physical - Constitutional Vitals: Temp Pulse Resp BP Pulse Ox 98.6 F 90 20 143/82 99 11/10/16 16:00 11/10/16 14:20 11/10/16 14:20 11/10/16 14:10 11/10/16 14:01 General appearance: Present: no acute distress, well-nourished Results - Labs CBC & Chem 7: 11/10/16 04:32 11/10/16 10:05 Labs: Laboratory Last Values WBC 5.6 K/mm3 (4.5-11.0) 11/08/16 06:45 RBC 2.37 M/mm3 (3.65-5.03) L 11/08/16 06:45 Hgb 8.4 gm/dl (10.1-14.3) L 11/10/16 04:32 Hct 25.6 % (30.3-42.9) L 11/10/16 04:32 MCV 98 fl (79-97) H 11/08/16 06:45 MCH 32 pg (28-32) 11/08/16 06:45 MCHC 33 % (30-34) 11/08/16 06:45 RDW 13.9 % (13.2-15.2) 11/08/16 06:45 Plt Count 111 K/mm3 (140-440) L 11/10/16 04:32 Lymph % (Auto) 8.0 % (13.4-35.0) L 11/08/16 06:45 [place]les % (Auto) 2.7 % (0.0-7.3) 11/08/16 06:45 Eos % (Auto) 0.0 % (0.0-4.3) 11/08/16 06:45 Baso % (Auto) 0.1 % (0.0-1.8) 11/08/16 06:45 Lymph # 0.5 K/mm3 (1.2-5.4) L 11/08/16 06:45 Nobles # 0.1 K/mm3 (0.0-0.8) 11/08/16 06:45 Eos # 0.0 K/mm3 (0.0-0.4) 11/08/16 06:45 Baso # 0.0 K/mm3 (0.0-0.1) 11/08/16 06:45 Seg Neutrophils % 89.2 % (40.0-70.0) H 11/08/16 06:45 Seg Neutrophils # 5.0 K/mm3 (1.8-7.7) 11/08/16 06:45 PT 16.5 Sec. (12.2-14.9) H 11/08/16 12:04 INR 1.34 (0.87-1.13) H 11/08/16 12:04 APTT 38.5 Sec. (24.2-36.6) H 11/08/16 12:04 D-Dimer 1575.53 ng/mlDDU (0-234) H 11/07/16 16:35 Heparin Anti-Xa Level 0.12 U.I./ml (0.3-0.7) L 11/10/16 07:16 POC ABG pH 7.371 (7.35-7.45) 11/07/16 18:14 POC ABG pCO2 27.0 (35-45) L 11/07/16 18:14 POC ABG pO2 124 (80-105) H 11/07/16 18:14 POC ABG HCO3 15.6 11/07/16 18:14 POC ABG Total CO2 16 11/07/16 18:14 POC ABG O2 Sat 99 11/07/16 18:14 POC ABG Base Excess -10 11/07/16 18:14 FiO2 35 % 11/07/16 18:14 Sodium 137 mmol/L (137-145) 11/10/16 10:05 Potassium 3.7 mmol/L (3.6-5.0) D 11/10/16 10:05 Chloride 97.2 mmol/L (98-107) L 11/10/16 10:05 Carbon Dioxide 22 mmol/L (22-30) D 11/10/16 10:05 Anion Gap 22 mmol/L 11/10/16 10:05 BUN 62 mg/dL (7-17) H 11/10/16 10:05 Creatinine 4.4 mg/dL (0.7-1.2) H 11/10/16 10:05 Estimated GFR 12 ml/min 11/10/16 10:05 BUN/Creatinine Ratio 14.09 % 11/10/16 10:05 Glucose 206 mg/dL (65-100) H 11/10/16 10:05 Hemoglobin A1c 4.8 % (4-6) 11/07/16 16:35 Lactic Acid 1.10 mmol/L (0.7-2.0) 11/09/16 03:19 Calcium 7.0 mg/dL (8.4-10.2) L 11/10/16 10:05 Total Bilirubin 0.40 mg/dL (0.1-1.2) 11/08/16 06:45 AST 164 units/L (5-40) H 11/08/16 06:45 ALT 47 units/L (7-56) 11/08/16 06:45 Alkaline Phosphatase 89 units/L (35-129) 11/08/16 06:45 Total Creatine Kinase 947 units/L (30-135) H 11/08/16 17:09 CK-MB (CK-2) 91.7 ng/mL (0.0-4.0) H 11/08/16 17:09 CK-MB (CK-2) Rel Index 9.6 (0-4) H 11/08/16 17:09 Troponin T 6.920 ng/mL (0.00-0.029) H* 11/07/16 18:36 C-Reactive Protein 5.80 mg/dL (0.00-1.30) H 11/08/16 17:09 NT-Pro-B Natriuret Pep 78638 pg/mL (0-900) H 11/07/16 16:35 Total Protein 5.6 g/dL (6.3-8.2) L 11/08/16 06:45 Albumin 2.5 g/dL (3.9-5) L 11/08/16 06:45 Albumin/Globulin Ratio 0.8 % 11/08/16 06:45 Triglycerides 69 mg/dL (2-149) 11/07/16 16:35 Cholesterol 129 mg/dL (50-199) 11/07/16 16:35 LDL Cholesterol Direct 56 mg/dL (50-130) 11/07/16 16:35 HDL Cholesterol 60 mg/dL (40-59) H 11/07/16 16:35 Cholesterol/HDL Ratio 2.15 % 11/07/16 16:35 TSH 4.120 mlU/mL (0.270-4.200) 11/09/16 15:38 Urine Color Yellow (Yellow) 11/08/16 13:56 Urine Turbidity Cloudy (Clear) 11/08/16 13:56 Urine pH 5.0 (5.0-7.0) 11/08/16 13:56 Ur Specific [place] 1.013 (1.003-1.030) 11/08/16 13:56 Urine Protein 100 mg/dl mg/dL (Negative) 11/08/16 13:56 Urine Glucose (UA) Neg mg/dL (Negative) 11/08/16 13:56 Urine Ketones Neg mg/dL (Negative) 11/08/16 13:56 Urine Blood Lg (Negative) 11/08/16 13:56 Urine Nitrite Neg (Negative) 11/08/16 13:56 Urine Bilirubin Neg (Negative) 11/08/16 13:56 Urine Urobilinogen < 2.0 mg/dL (<2.0) 11/08/16 13:56 Ur Leukocyte Esterase Mod (Negative) 11/08/16 13:56 Urine WBC (Auto) 25.0 /HPF (0.0-6.0) H 11/08/16 13:56 Urine RBC (Auto) > 182.0 /HPF (0.0-6.0) 11/08/16 13:56 U Epithel Cells (Auto) 20.0 /HPF (0-13.0) H 11/08/16 13:56 Urine WBC Clumps Few /HPF 11/08/16 13:56 Ur Transition Epith Cell 2 /HPF 11/08/16 13:56 Urine Creatinine 161.2 mg/dL (0.1-20.0) H 11/08/16 13:56 Protein/Creatinin Ratio 0.91 11/08/16 13:56 Urine Total Protein 146 mg/dL (5-11.8) H 11/08/16 13:56 Hep Bs Antigen Non-reactive (Negative) 11/10/16 04:32 Hepatitis C Antibody Non-reactive (NonReactive) 11/10/16 04:32
[2016-11-10] MEDS ORDERED: ZOFRAN IV PRN (17:01)
--- NOTE | 2016-11-10 17:49 | Progress Note ---
Assessment and Plan (1) NATHALIA vs CKD, Baseline unavailable, CRS Current Visit: Yes Status: Acute Plan to address problem: Requiring dialysis She is toelrating dialysis well. Had about 6 L of fluid removed in two sessions. Hyperkalemia and acidosis also improved. Next HD in am Will monitor for renal recovery Renal U/S reviewed. No hydronephrosis Avoid nephrotoxics D/asher Valsartan and Lasix (2) Acute congestive herat failure( EF unknown) Current Visit: Yes Status: Acute Plan to address problem: UF on dialysis Strict I/Os F/u on 2 D echo (3) NSTEMI (non-ST elevated myocardial infarction) Current Visit: Yes Status: Acute Plan to address problem: Management per cardio (4) Acute hypoxic respiratory failure (Pneumonia /pulmonary edema) Current Visit: Yes Status: Acute Antibiotics BiPAP support as needed IV diuretics as mentioned above (5) Essential HTN (hypertension) Current Visit: Yes Status: Chronic Qualifiers: Hypertension type: essential hypertension Qualified Code(s): I10 - Essential (primary) hypertension Plan to address problem: Cont ARB Beta blockers and Hydralazine (6) Metabolic Acidosis likley 2/2 Dx 3 Current Visit: Yes Status: Acute Continue to monitor (7) Dementia Current Visit: Yes Status: Chronic Qualifiers: Dementia type: vascular dementia Alzheimer's disease onset: A Dementia behavioral disturbance: D Plan to address problem: Cont Namenda Subjective Date of service: 11/10/16 Principal diagnosis: NSTEMI Interval history: S/p HD x 2 tolerated well --total of 5.75 L fluid removed with two sessions. Objective - Exam Narrative Exam: General appearance: well-developed, well-nourished, appears stated age, frail EENT: PERRL, mucous membranes moist Neck: Present: neck supple, trachea midline. Absent: JVD/HJR, Masses Respiratory: Rales, Decreased Breath Sounds Heart: regular, normal heart rate, S1S2, no murmurs Gastrointestinal: Present: normoactive bowel sounds. Absent: tenderness Integumentary: no rash, warm and dry Neurologic: no focal deficit, alert and oriented x3, gait normal, strength 5/5 Musculoskeletal: Absent: deformities, joint swelling Psychiatric: mood/affect appropriate, cooperative - Vital Signs Vital signs: Vital Signs - 12hr 11/10/16 11/10/16 11/10/16 06:00 06:31 07:00 Temperature Pulse Rate 90 92 H 86 Pulse Rate [ Anterior Bilateral Throughout] Respiratory 19 16 14 Rate Respiratory Rate [Anterior Bilateral Throughout] Blood Pressure 140/89 140/89 126/87 O2 Sat by Pulse 100 98 98 Oximetry O2 Sat by Pulse Oximetry [ Anterior Bilateral Throughout] O2 Sat by Pulse Oximetry [ Posterior Bilateral Throughout] 11/10/16 11/10/16 11/10/16 07:31 08:00 08:31 Temperature 97.6 F Pulse Rate 86 86 83 Pulse Rate [ Anterior Bilateral Throughout] Respiratory 17 15 14 Rate Respiratory Rate [Anterior Bilateral Throughout] Blood Pressure 126/87 131/86 126/87 O2 Sat by Pulse 99 100 99 Oximetry O2 Sat by Pulse Oximetry [ Anterior Bilateral Throughout] O2 Sat by Pulse Oximetry [ Posterior Bilateral Throughout] 11/10/16 11/10/16 11/10/16 08:40 08:42 08:59 Temperature Pulse Rate Pulse Rate [ 86 87 Anterior Bilateral Throughout] Respiratory Rate Respiratory 20 20 Rate [Anterior Bilateral Throughout] Blood Pressure O2 Sat by Pulse 99 Oximetry O2 Sat by Pulse Oximetry [ Anterior Bilateral Throughout] O2 Sat by Pulse Oximetry [ Posterior Bilateral Throughout] 11/10/16 11/10/16 11/10/16 09:00 09:31 10:00 Temperature Pulse Rate 87 93 H 91 H Pulse Rate [ Anterior Bilateral Throughout] Respiratory 14 16 Rate Respiratory Rate [Anterior Bilateral Throughout] Blood Pressure 138/80 138/80 O2 Sat by Pulse 99 98 Oximetry O2 Sat by Pulse Oximetry [ Anterior Bilateral Throughout] O2 Sat by Pulse Oximetry [ Posterior Bilateral Throughout] 11/10/16 11/10/16 11/10/16 10:01 10:31 10:39 Temperature 97.6 F Pulse Rate 94 H 90 89 Pulse Rate [ Anterior Bilateral Throughout] Respiratory 20 20 15 Rate Respiratory Rate [Anterior Bilateral Throughout] Blood Pressure 138/80 145/80 145/80 O2 Sat by Pulse 98 98 Oximetry O2 Sat by Pulse Oximetry [ Anterior Bilateral Throughout] O2 Sat by Pulse Oximetry [ Posterior Bilateral Throughout] 11/10/16 11/10/16 11/10/16 11:00 11:01 11:10 Temperature Pulse Rate 85 87 85 Pulse Rate [ Anterior Bilateral Throughout] Respiratory 15 Rate Respiratory Rate [Anterior Bilateral Throughout] Blood Pressure 145/97 154/91 154/91 O2 Sat by Pulse 99 Oximetry O2 Sat by Pulse Oximetry [ Anterior Bilateral Throughout] O2 Sat by Pulse Oximetry [ Posterior Bilateral Throughout] 11/10/16 11/10/16 11/10/16 11:15 11:30 11:31 Temperature Pulse Rate 87 87 86 Pulse Rate [ Anterior Bilateral Throughout] Respiratory 16 Rate Respiratory Rate [Anterior Bilateral Throughout] Blood Pressure 173/64 143/75 173/64 O2 Sat by Pulse 99 Oximetry O2 Sat by Pulse Oximetry [ Anterior Bilateral Throughout] O2 Sat by Pulse Oximetry [ Posterior Bilateral Throughout] 11/10/16 11/10/16 11/10/16 11:45 12:00 12:01 Temperature 98.5 F Pulse Rate 86 84 86 Pulse Rate [ Anterior Bilateral Throughout] Respiratory 14 Rate Respiratory Rate [Anterior Bilateral Throughout] Blood Pressure 149/75 141/77 149/75 O2 Sat by Pulse 98 Oximetry O2 Sat by Pulse Oximetry [ Anterior Bilateral Throughout] O2 Sat by Pulse Oximetry [ Posterior Bilateral Throughout] 11/10/16 11/10/16 11/10/16 12:15 12:30 12:31 Temperature Pulse Rate 82 86 82 Pulse Rate [ Anterior Bilateral Throughout] Respiratory 16 Rate Respiratory Rate [Anterior Bilateral Throughout] Blood Pressure 150/81 136/46 136/46 O2 Sat by Pulse 97 Oximetry O2 Sat by Pulse Oximetry [ Anterior Bilateral Throughout] O2 Sat by Pulse Oximetry [ Posterior Bilateral Throughout] 11/10/16 11/10/16 11/10/16 12:45 12:57 13:01 Temperature Pulse Rate 83 81 84 Pulse Rate [ Anterior Bilateral Throughout] Respiratory 20 Rate Respiratory Rate [Anterior Bilateral Throughout] Blood Pressure 141/75 139/77 139/77 O2 Sat by Pulse 98 Oximetry O2 Sat by Pulse Oximetry [ Anterior Bilateral Throughout] O2 Sat by Pulse Oximetry [ Posterior Bilateral Throughout] 11/10/16 11/10/16 11/10/16 13:12 13:30 13:31 Temperature 98.5 F Pulse Rate 82 85 86 Pulse Rate [ Anterior Bilateral Throughout] Respiratory 18 14 Rate Respiratory Rate [Anterior Bilateral Throughout] Blood Pressure 140/72 136/74 140/75 O2 Sat by Pulse 98 Oximetry O2 Sat by Pulse 99 Oximetry [ Anterior Bilateral Throughout] O2 Sat by Pulse 99 Oximetry [ Posterior Bilateral Throughout] 11/10/16 11/10/16 11/10/16 14:01 14:06 14:10 Temperature Pulse Rate 89 91 H Pulse Rate [ 88 Anterior Bilateral Throughout] Respiratory 16 Rate Respiratory 18 Rate [Anterior Bilateral Throughout] Blood Pressure 143/82 143/82 O2 Sat by Pulse 99 Oximetry O2 Sat by Pulse Oximetry [ Anterior Bilateral Throughout] O2 Sat by Pulse Oximetry [ Posterior Bilateral Throughout] 11/10/16 11/10/16 14:20 16:00 Temperature 98.6 F Pulse Rate Pulse Rate [ 90 Anterior Bilateral Throughout] Respiratory Rate Respiratory 20 Rate [Anterior Bilateral Throughout] Blood Pressure O2 Sat by Pulse Oximetry O2 Sat by Pulse Oximetry [ Anterior Bilateral Throughout] O2 Sat by Pulse Oximetry [ Posterior Bilateral Throughout] - Lab 11/10/16 04:32 11/10/16 10:05 Most recent lab results Calcium 7.0 mg/dL (8.4-10.2) L 11/10/16 10:05 Urine Creatinine 161.2 mg/dL (0.1-20.0) H 11/08/16 13:56 Urine Total Protein 146 mg/dL (5-11.8) H 11/08/16 13:56
[2016-11-10] MEDS: BABY ASPIRIN PO SCH (18:26)
[2016-11-10 19:03] LABS: Iron 70 ug/dL (37-170); Total Iron Binding Capacity 237 mcg/dL (250-450)
[2016-11-10 19:18] LABS: Reticulocyte % 4.37 % (0.78-2.58)
[2016-11-10] MEDS: LEVAQUIN 500MG/100ML 500 MG/100 ML BAG IV SCH (22:09)
[2016-11-11] MEDS: DUONEB *Not for PRN Use IH SCH ×4 (02:03→19:44)
[2016-11-11] MEDS: NAMENDA XR PO SCH (09:16)
[2016-11-11] MEDS: APRESOLINE PO SCH ×3 (09:17→21:22)
[2016-11-11] MEDS: COREG PO SCH ×2 (09:17→21:23)
[2016-11-11] MEDS: ZOCOR PO SCH (09:18)
[2016-11-11] MEDS: BABY ASPIRIN PO SCH (09:18)
[2016-11-11] MEDS: NORVASC PO SCH (09:18)
[2016-11-11] MEDS: PEPCID PO SCH (09:18)
[2016-11-11] MEDS: OYSCO D 500 MG-200 UNIT PO SCH (09:18)
--- NOTE | 2016-11-11 10:33 | Progress Note ---
Assessment and Plan Renal failure initiated on dialysis this admission Pulmonary edema Anemia NSTEMI Prior CVA Hypertension Plan: Echocardiogram for LVEF assessment. Further cardiac evaluation for the non-ST elevation myocardial infarction would depend on clinical course. Subjective Date of service: 11/11/16 Principal diagnosis: NSTEMI Interval history: Patient appears somewhat short of breath. Objective Vital Signs Temp Pulse Pulse Pulse Pulse Pulse Pulse 11/11/16 10:11 92 H 11/11/16 08:47 11/11/16 08:43 98.1 F 80 80 80 80 11/11/16 08:00 85 11/11/16 04:32 97.4 F L 87 87 87 87 11/11/16 02:15 90 11/11/16 02:07 87 11/11/16 01:31 97.7 F 79 79 79 79 11/11/16 00:00 98.7 F 11/10/16 23:31 85 11/10/16 23:01 87 11/10/16 22:55 89 11/10/16 22:31 84 11/10/16 22:15 11/10/16 22:00 83 11/10/16 21:31 80 11/10/16 21:06 81 11/10/16 21:01 85 11/10/16 20:53 90 11/10/16 20:31 87 11/10/16 20:00 83 84 83 11/10/16 19:49 99 F 11/10/16 19:31 84 11/10/16 19:01 88 11/10/16 18:31 85 11/10/16 18:01 85 11/10/16 17:31 90 11/10/16 17:01 93 H 11/10/16 16:31 90 11/10/16 16:01 96 H 11/10/16 16:00 98.6 F 11/10/16 15:31 83 11/10/16 15:01 81 11/10/16 14:31 84 11/10/16 14:20 90 11/10/16 14:10 91 H 11/10/16 14:06 88 11/10/16 14:01 89 11/10/16 13:31 86 11/10/16 13:30 98.5 F 85 11/10/16 13:12 82 11/10/16 13:01 84 07/18/17 12:57 81 11/10/16 12:45 83 11/10/16 12:31 82 11/10/16 12:30 86 11/10/16 12:15 82 11/10/16 12:01 86 11/10/16 12:00 98.5 F 84 11/10/16 11:45 86 11/10/16 11:31 86 11/10/16 11:30 87 11/10/16 11:15 87 11/10/16 11:10 85 11/10/16 11:01 87 11/10/16 11:00 85 11/10/16 10:39 97.6 F 89 11/10/16 10:31 90 Pulse Resp Resp Resp BP BP Pulse Ox 11/11/16 10:11 17 11/11/16 08:47 100 11/11/16 08:43 80 20 126/69 95 11/11/16 08:00 17 11/11/16 04:32 87 22 133/76 100 11/11/16 02:15 20 11/11/16 02:07 20 11/11/16 01:31 79 20 137/72 97 11/11/16 00:00 11/10/16 23:31 20 122/72 96 11/10/16 23:01 122/72 98 11/10/16 22:55 123/75 11/10/16 22:31 18 111/71 97 11/10/16 22:15 98 11/10/16 22:00 13 18 111/71 99 11/10/16 21:31 16 125/79 97 11/10/16 21:06 125/79 11/10/16 21:01 23 130/75 97 11/10/16 20:53 16 11/10/16 20:31 22 130/75 99 11/10/16 20:00 18 130/75 98 11/10/16 19:49 11/10/16 19:31 20 122/71 99 11/10/16 19:01 24 137/79 98 11/10/16 18:31 20 137/79 99 11/10/16 18:01 19 145/78 98 11/10/16 17:31 17 136/72 97 11/10/16 17:01 13 126/82 92 11/10/16 16:31 17 129/83 95 11/10/16 16:01 14 134/69 93 11/10/16 16:00 17 11/10/16 15:31 17 136/76 99 11/10/16 15:01 15 141/78 98 11/10/16 14:31 17 142/78 97 11/10/16 14:20 20 11/10/16 14:10 143/82 11/10/16 14:06 18 11/10/16 14:01 16 143/82 99 11/10/16 13:31 14 140/75 98 11/10/16 13:30 18 136/74 11/10/16 13:12 140/72 11/10/16 13:01 20 139/77 98 11/10/16 12:57 139/77 11/10/16 12:45 141/75 11/10/16 12:31 16 136/46 97 11/10/16 12:30 136/46 11/10/16 12:15 150/81 11/10/16 12:01 14 149/75 98 11/10/16 12:00 141/77 11/10/16 11:45 149/75 11/10/16 11:31 16 173/64 99 11/10/16 11:30 143/75 11/10/16 11:15 173/64 11/10/16 11:10 154/91 11/10/16 11:01 15 154/91 99 11/10/16 11:00 145/97 11/10/16 10:39 15 145/80 11/10/16 10:31 20 145/80 98 Pulse Ox Pulse Ox 11/11/16 10:11 11/11/16 08:47 11/11/16 08:43 11/11/16 08:00 11/11/16 04:32 11/11/16 02:15 11/11/16 02:07 11/11/16 01:31 11/11/16 00:00 11/10/16 23:31 11/10/16 23:01 11/10/16 22:55 11/10/16 22:31 11/10/16 22:15 11/10/16 22:00 11/10/16 21:31 11/10/16 21:06 11/10/16 21:01 11/10/16 20:53 11/10/16 20:31 11/10/16 20:00 11/10/16 19:49 11/10/16 19:31 11/10/16 19:01 11/10/16 18:31 11/10/16 18:01 11/10/16 17:31 11/10/16 17:01 11/10/16 16:31 11/10/16 16:01 11/10/16 16:00 11/10/16 15:31 11/10/16 15:01 11/10/16 14:31 11/10/16 14:20 11/10/16 14:10 11/10/16 14:06 11/10/16 14:01 11/10/16 13:31 11/10/16 13:30 99 99 11/10/16 13:12 11/10/16 13:01 11/10/16 12:57 11/10/16 12:45 11/10/16 12:31 11/10/16 12:30 11/10/16 12:15 11/10/16 12:01 11/10/16 12:00 11/10/16 11:45 11/10/16 11:31 11/10/16 11:30 11/10/16 11:15 11/10/16 11:10 11/10/16 11:01 11/10/16 11:00 11/10/16 10:39 11/10/16 10:31 - Physical Examination General: No Apparent Distress HEENT: Positive: PERRL Cardiac: Positive: Reg Rate and Rhythm Lungs: Positive: Decreased Breath Sounds - Labs and Meds Comprehensive Metabolic Panel 11/10/16 Range/Units 10:05 Sodium 137 (137-145) mmol/L Potassium 3.7 D (3.6-5.0) mmol/L Chloride 97.2 L (98-107) mmol/L Carbon Dioxide 22 D (22-30) mmol/L BUN 62 H (7-17) mg/dL Creatinine 4.4 H (0.7-1.2) mg/dL Glucose 206 H (65-100) mg/dL Calcium 7.0 L (8.4-10.2) mg/dL - Imaging and Cardiology EKG: report reviewed (Sinus Tach pvc's LVH 119/min Repolarization abnormalities) - Allied health notes Allied health notes reviewed: RT
--- NOTE | 2016-11-11 14:43 | Progress Note ---
Assessment and Plan Assessment and plan: Patient is a 70-year-old woman with a history of hypertension, type 2 diabetes mellitus, CVA, advanced dementia and osteoporosis who presented with nausea, vomiting, diarrhea and shortness of breath. Portable chest x-ray reported as cardiomegaly, may be exacerbated by diminished lung volumes, subtle asymmetric increased opacity in the right upper lobe, this could be secondary to overlapping osseous structures, but underlying infiltrate or pulmonary lesion is not excluded, this can be further assessed CT of the chest. VQ scan read as limited study, very low probability of Pulmonary embolism. Bilateral renal ultrasound read as renal parenchymal disease, stable left renal cyst, small left pleural effusion. -Non-STEMI: Patient has received 48 hours of IV heparin, stopped heparin with drop hct d/w Dr. Shane, I added Aspirin to Coreg and Zocor -Pulmonary edema due to acute diastolic heart failure: Continue diuresis -Acute renal failure/CK D3: Now hemodialysis, nephrology following, -Acute hypoxic respiratory failure: Continue O2 therapy -Acute on chronic anemia with dropping hematocrit: Stop heparin, check fecal occult blood, iron studies==>positive FOBT, will consult GI -DVT prophylaxis: SCDs only due to drop in hemoglobin Full code Echo pending Hemodialysis per nephrology History Interval history: Patient seen and examined. Follow up on renal failure. Overnight uneventful. No cp, sob, n/v or severe headaches. Imaging, old records, testing, labs, nursing notes reviewed. Hospitalist Physical - Physical exam Narrative exam: GEN: WDWN, NAD, AWAKE, ALERT, ORIENTATED x 2 CVS: RRR, NORMAL S1S2 LUNGS/CHEST: Basilar crackles NORMAL CHEST EXPANSION B, GOOD AIR ENTRY B ABD: SOFT, NTND, GBS, NO REBOUND OR GUARDING EXT/SKIN: Bilateral leg edema MSK: FROM X 4 EXTREMITIES NEURO: CN 2-12 GROSSLY INTACT, NO NEW FOCAL DEFICITS PSY: CALM - Constitutional Vitals: Temp Pulse Resp BP Pulse Ox 98.4 F 80 20 117/70 98 11/11/16 12:00 11/11/16 12:00 11/11/16 12:00 11/11/16 12:00 11/11/16 12:00 General appearance: Present: no acute distress, well-nourished Results - Labs CBC & Chem 7: 11/10/16 04:32 11/10/16 10:05 Labs: Laboratory Last Values WBC 5.6 K/mm3 (4.5-11.0) 11/08/16 06:45 RBC 2.37 M/mm3 (3.65-5.03) L 11/08/16 06:45 Hgb 8.4 gm/dl (10.1-14.3) L 11/10/16 04:32 Hct 25.6 % (30.3-42.9) L 11/10/16 04:32 MCV 98 fl (79-97) H 11/08/16 06:45 MCH 32 pg (28-32) 11/08/16 06:45 MCHC 33 % (30-34) 11/08/16 06:45 RDW 13.9 % (13.2-15.2) 11/08/16 06:45 Plt Count 111 K/mm3 (140-440) L 11/10/16 04:32 Lymph % (Auto) 8.0 % (13.4-35.0) L 11/08/16 06:45 [place] % (Auto) 2.7 % (0.0-7.3) 11/08/16 06:45 Eos % (Auto) 0.0 % (0.0-4.3) 11/08/16 06:45 Baso % (Auto) 0.1 % (0.0-1.8) 11/08/16 06:45 Lymph # 0.5 K/mm3 (1.2-5.4) L 11/08/16 06:45 [place] # 0.1 K/mm3 (0.0-0.8) 11/08/16 06:45 Eos # 0.0 K/mm3 (0.0-0.4) 11/08/16 06:45 Baso # 0.0 K/mm3 (0.0-0.1) 11/08/16 06:45 Seg Neutrophils % 89.2 % (40.0-70.0) H 11/08/16 06:45 Seg Neutrophils # 5.0 K/mm3 (1.8-7.7) 11/08/16 06:45 Percent Retic 4.37 % (0.78-2.58) H 11/10/16 19:09 PT 16.5 Sec. (12.2-14.9) H 11/08/16 12:04 INR 1.34 (0.87-1.13) H 11/08/16 12:04 APTT 38.5 Sec. (24.2-36.6) H 11/08/16 12:04 D-Dimer 1575.53 ng/mlDDU (0-234) H 11/07/16 16:35 Heparin Anti-Xa Level 0.12 U.I./ml (0.3-0.7) L 11/10/16 07:16 POC ABG pH 7.371 (7.35-7.45) 11/07/16 18:14 POC ABG pCO2 27.0 (35-45) L 11/07/16 18:14 POC ABG pO2 124 (80-105) H 11/07/16 18:14 POC ABG HCO3 15.6 11/07/16 18:14 POC ABG Total CO2 16 11/07/16 18:14 POC ABG O2 Sat 99 11/07/16 18:14 POC ABG Base Excess -10 11/07/16 18:14 FiO2 35 % 11/07/16 18:14 Sodium 137 mmol/L (137-145) 11/10/16 10:05 Potassium 3.7 mmol/L (3.6-5.0) D 11/10/16 10:05 Chloride 97.2 mmol/L (98-107) L 11/10/16 10:05 Carbon Dioxide 22 mmol/L (22-30) D 11/10/16 10:05 Anion Gap 22 mmol/L 11/10/16 10:05 BUN 62 mg/dL (7-17) H 11/10/16 10:05 Creatinine 4.4 mg/dL (0.7-1.2) H 11/10/16 10:05 Estimated GFR 12 ml/min 11/10/16 10:05 BUN/Creatinine Ratio 14.09 % 11/10/16 10:05 Glucose 206 mg/dL (65-100) H 11/10/16 10:05 Hemoglobin A1c 4.8 % (4-6) 11/07/16 16:35 Lactic Acid 1.10 mmol/L (0.7-2.0) 11/09/16 03:19 Calcium 7.0 mg/dL (8.4-10.2) L 11/10/16 10:05 Iron 70 ug/dL (37-170) 11/10/16 18:10 TIBC 237 mcg/dL (250-450) L 11/10/16 18:10 Ferritin 211.2 ng/mL (13.0-400.0) 11/10/16 18:10 Total Bilirubin 0.40 mg/dL (0.1-1.2) 11/08/16 06:45 AST 164 units/L (5-40) H 11/08/16 06:45 ALT 47 units/L (7-56) 11/08/16 06:45 Alkaline Phosphatase 89 units/L (35-129) 11/08/16 06:45 Total Creatine Kinase 947 units/L (30-135) H 11/08/16 17:09 CK-MB (CK-2) 91.7 ng/mL (0.0-4.0) H 11/08/16 17:09 CK-MB (CK-2) Rel Index 9.6 (0-4) H 11/08/16 17:09 Troponin T 6.920 ng/mL (0.00-0.029) H* 11/07/16 18:36 C-Reactive Protein 5.80 mg/dL (0.00-1.30) H 11/08/16 17:09 NT-Pro-B Natriuret Pep 58754 pg/mL (0-900) H 11/07/16 16:35 Total Protein 5.6 g/dL (6.3-8.2) L 11/08/16 06:45 Albumin 2.5 g/dL (3.9-5) L 11/08/16 06:45 Albumin/Globulin Ratio 0.8 % 11/08/16 06:45 Triglycerides 69 mg/dL (2-149) 11/07/16 16:35 Cholesterol 129 mg/dL (50-199) 11/07/16 16:35 LDL Cholesterol Direct 56 mg/dL (50-130) 11/07/16 16:35 HDL Cholesterol 60 mg/dL (40-59) H 11/07/16 16:35 Cholesterol/HDL Ratio 2.15 % 11/07/16 16:35 TSH 4.120 mlU/mL (0.270-4.200) 11/09/16 15:38 Urine Color Yellow (Yellow) 11/08/16 13:56 Urine Turbidity Cloudy (Clear) 11/08/16 13:56 Urine pH 5.0 (5.0-7.0) 11/08/16 13:56 Ur Specific Geff 1.013 (1.003-1.030) 11/08/16 13:56 Urine Protein 100 mg/dl mg/dL (Negative) 11/08/16 13:56 Urine Glucose (UA) Neg mg/dL (Negative) 11/08/16 13:56 Urine Ketones Neg mg/dL (Negative) 11/08/16 13:56 Urine Blood Lg (Negative) 11/08/16 13:56 Urine Nitrite Neg (Negative) 11/08/16 13:56 Urine Bilirubin Neg (Negative) 11/08/16 13:56 Urine Urobilinogen < 2.0 mg/dL (<2.0) 11/08/16 13:56 Ur Leukocyte Esterase Mod (Negative) 11/08/16 13:56 Urine WBC (Auto) 25.0 /HPF (0.0-6.0) H 11/08/16 13:56 Urine RBC (Auto) > 182.0 /HPF (0.0-6.0) 11/08/16 13:56 U Epithel Cells (Auto) 20.0 /HPF (0-13.0) H 11/08/16 13:56 Urine WBC Clumps Few /HPF 11/08/16 13:56 Ur Transition Epith Cell 2 /HPF 11/08/16 13:56 Urine Creatinine 161.2 mg/dL (0.1-20.0) H 11/08/16 13:56 Protein/Creatinin Ratio 0.91 11/08/16 13:56 Urine Total Protein 146 mg/dL (5-11.8) H 11/08/16 13:56 Hep Bs Antigen Non-reactive (Negative) 11/10/16 04:32 Hepatitis C Antibody Non-reactive (NonReactive) 11/10/16 04:32
[2016-11-11] MEDS: ULTRAM PO PRN (21:24)
--- NOTE | 2016-11-11 21:56 | Progress Note ---
Assessment and Plan (1) NATHALIA vs CKD, Baseline unavailable, CRS Current Visit: Yes Status: Acute Plan to address problem: Requiring dialysis Next HD in am. Hyperkalemia and acidosis also improved. No signs of real recovery at present Renal U/S reviewed. No hydronephrosis Avoid nephrotoxics Valsartan and Lasix have been d/asher (2) Acute congestive herat failure( EF unknown) Current Visit: Yes Status: Acute Plan to address problem: UF on dialysis Strict I/Os F/u on 2 D echo (3) NSTEMI (non-ST elevated myocardial infarction) Current Visit: Yes Status: Acute Plan to address problem: Management per cardio (4) Acute hypoxic respiratory failure (Pneumonia /pulmonary edema) Current Visit: Yes Status: Acute Antibiotics BiPAP support as needed IV diuretics as mentioned above (5) Essential HTN (hypertension) Current Visit: Yes Status: Chronic Qualifiers: Hypertension type: essential hypertension Qualified Code(s): I10 - Essential (primary) hypertension Plan to address problem: Stable. (6) Metabolic Acidosis likley 2/2 Dx 3 Current Visit: Yes Status: Acute improved, Continue to monitor (7) Dementia Current Visit: Yes Status: Chronic Qualifiers: Dementia type: vascular dementia Alzheimer's disease onset: A Dementia behavioral disturbance: D Plan to address problem: Cont Namenda Subjective Date of service: 11/11/16 Principal diagnosis: NSTEMI Interval history: Transferred out of ICU SOB less Objective - Exam Narrative Exam: General appearance: well-developed, well-nourished, appears stated age, frail, no distress EENT: PERRL, mucous membranes moist Neck: Present: neck supple, trachea midline. Absent: JVD/HJR, Masses Respiratory: Decreased Breath Sounds, scattered wheezes Heart: regular, normal heart rate, S1S2, no murmurs Gastrointestinal: Present: normoactive bowel sounds. Absent: tenderness Integumentary: no rash, warm and dry Neurologic: no focal deficit, alert and oriented x3, gait normal, strength 5/5 Musculoskeletal: Absent: deformities, joint swelling Psychiatric: mood/affect appropriate, cooperative - Vital Signs Vital signs: Vital Signs - 12hr 11/11/16 11/11/16 11/11/16 10:00 10:11 12:00 Temperature 98.4 F Pulse Rate 80 Pulse Rate [ 92 H Anterior Bilateral Throughout] Pulse Rate [ 80 80 Apical] Pulse Rate [ 80 From Monitor] Pulse Rate [ 80 Left Radial] Pulse Rate [ 80 Right Dorsalis Pedis] Pulse Rate [ 80 Right Radial] Respiratory 18 20 Rate Respiratory 17 Rate [Anterior Bilateral Throughout] Respiratory 20 Rate [denies pain] Blood Pressure Blood Pressure 117/70 [Right Arm] O2 Sat by Pulse 95 98 Oximetry 11/11/16 11/11/16 11/11/16 16:07 19:44 19:47 Temperature 98 F Pulse Rate Pulse Rate [ 75 Anterior Bilateral Throughout] Pulse Rate [ 83 Apical] Pulse Rate [ 83 From Monitor] Pulse Rate [ 83 Left Radial] Pulse Rate [ 83 Right Dorsalis Pedis] Pulse Rate [ 83 Right Radial] Respiratory 20 Rate Respiratory 18 Rate [Anterior Bilateral Throughout] Respiratory Rate [denies pain] Blood Pressure Blood Pressure 117/57 [Right Arm] O2 Sat by Pulse 98 97 Oximetry 11/11/16 11/11/16 11/11/16 20:00 21:05 21:22 Temperature 97.6 F Pulse Rate 70 Pulse Rate [ 77 Anterior Bilateral Throughout] Pulse Rate [ 70 Apical] Pulse Rate [ 70 From Monitor] Pulse Rate [ 70 Left Radial] Pulse Rate [ 70 Right Dorsalis Pedis] Pulse Rate [ 70 Right Radial] Respiratory 20 Rate Respiratory 18 Rate [Anterior Bilateral Throughout] Respiratory Rate [denies pain] Blood Pressure 129/66 Blood Pressure 129/66 [Right Arm] O2 Sat by Pulse 99 Oximetry 11/11/16 11/11/16 21:23 21:24 Temperature Pulse Rate 70 Pulse Rate [ Anterior Bilateral Throughout] Pulse Rate [ Apical] Pulse Rate [ From Monitor] Pulse Rate [ Left Radial] Pulse Rate [ Right Dorsalis Pedis] Pulse Rate [ Right Radial] Respiratory 18 Rate Respiratory Rate [Anterior Bilateral Throughout] Respiratory Rate [denies pain] Blood Pressure 129/66 Blood Pressure [Right Arm] O2 Sat by Pulse Oximetry - Lab 11/10/16 04:32 11/10/16 10:05 Most recent lab results Calcium 7.0 mg/dL (8.4-10.2) L 11/10/16 10:05 Urine Creatinine 161.2 mg/dL (0.1-20.0) H 11/08/16 13:56 Urine Total Protein 146 mg/dL (5-11.8) H 11/08/16 13:56
--- NOTE | 2016-11-11 23:52 | Progress Note ---
Assessment and Plan Patient alert, awake and resting on 2 litres O2.O2 saturation 99%.Patient says breathing better. No complaint of chest pain at this time. - Patient Problems (1) Acute respiratory failure with hypoxia Current Visit: Yes Status: Acute Plan to address problem: Patient is on 2 litres O2. Albuterol/atrovent aerosol treatments q 6 hours. Continue I/V solumedral. Continue S/C Heparin. Continue Levaquine. Continue famotadine. (2) NSTEMI (non-ST elevated myocardial infarction) Current Visit: Yes Status: Acute Plan to address problem: Management as per cardiology (3) Thrombocytopenia Current Visit: Yes Status: Acute Plan to address problem: Platelet count dropping ltest platelet count [id number]. (4) CKD (chronic kidney disease) stage 4, GFR 15-29 ml/min Current Visit: Yes Status: Chronic Plan to address problem: Management as per nephrology. Subjective Date of service: 11/11/16 Principal diagnosis: NSTEMI Interval history: Patient alert, awake and resting on 2 litres O2.O2 saturation 99%.Patient says breathing better. No complaint of chest pain at this time. Objective Vital Signs - 12hr 11/11/16 11/11/16 11/11/16 12:00 16:07 19:44 Temperature 98.4 F 98 F Pulse Rate Pulse Rate [ 75 Anterior Bilateral Throughout] Pulse Rate [ 80 83 Apical] Pulse Rate [ 80 83 From Monitor] Pulse Rate [ 80 83 Left Radial] Pulse Rate [ 80 83 Right Dorsalis Pedis] Pulse Rate [ 80 83 Right Radial] Respiratory 20 20 Rate Respiratory 18 Rate [Anterior Bilateral Throughout] Blood Pressure Blood Pressure 117/70 117/57 [Right Arm] O2 Sat by Pulse 98 98 Oximetry 11/11/16 11/11/16 11/11/16 19:47 20:00 21:05 Temperature 97.6 F Pulse Rate Pulse Rate [ 77 Anterior Bilateral Throughout] Pulse Rate [ 70 Apical] Pulse Rate [ 70 From Monitor] Pulse Rate [ 70 Left Radial] Pulse Rate [ 70 Right Dorsalis Pedis] Pulse Rate [ 70 Right Radial] Respiratory 20 Rate Respiratory 18 Rate [Anterior Bilateral Throughout] Blood Pressure Blood Pressure 129/66 [Right Arm] O2 Sat by Pulse 97 99 Oximetry 11/11/16 11/11/16 11/11/16 21:22 21:23 21:24 Temperature Pulse Rate 70 70 Pulse Rate [ Anterior Bilateral Throughout] Pulse Rate [ Apical] Pulse Rate [ From Monitor] Pulse Rate [ Left Radial] Pulse Rate [ Right Dorsalis Pedis] Pulse Rate [ Right Radial] Respiratory 18 Rate Respiratory Rate [Anterior Bilateral Throughout] Blood Pressure 129/66 129/66 Blood Pressure [Right Arm] O2 Sat by Pulse Oximetry 11/11/16 23:43 Temperature Pulse Rate 80 Pulse Rate [ Anterior Bilateral Throughout] Pulse Rate [ Apical] Pulse Rate [ From Monitor] Pulse Rate [ Left Radial] Pulse Rate [ Right Dorsalis Pedis] Pulse Rate [ Right Radial] Respiratory Rate Respiratory Rate [Anterior Bilateral Throughout] Blood Pressure Blood Pressure [Right Arm] O2 Sat by Pulse 99 Oximetry Constitutional: no acute distress Eyes: non-icteric ENT: oropharynx moist Neck: supple, no JVD Effort: normal Ascultation: Bilateral: diminished breath sounds, rales (basila) Cardiovascular: regular rate and rhythm Gastrointestinal: normoactive bowel sounds, soft, non-distended Integumentary: normal Extremities: no cyanosis, no edema, pink and warm, pulses normal, no ischemia or petechiae Neurologic: normal mental status, non-focal exam Psychiatric: mood appropriate, affect normal CBC and BMP: 11/10/16 04:32 11/10/16 10:05 ABG, PT/INR, D-dimer: ABG POC ABG pH 7.371 (7.35-7.45) 11/07/16 18:14 POC ABG pCO2 27.0 (35-45) L 11/07/16 18:14 POC ABG pO2 124 (80-105) H 11/07/16 18:14 POC ABG HCO3 15.6 11/07/16 18:14 POC ABG Total CO2 16 11/07/16 18:14 POC ABG O2 Sat 99 11/07/16 18:14 PT/INR, D-dimer PT 16.5 Sec. (12.2-14.9) H 11/08/16 12:04 INR 1.34 (0.87-1.13) H 11/08/16 12:04 D-Dimer 1575.53 ng/mlDDU (0-234) H 11/07/16 16:35 Abnormal lab findings: Abnormal Labs 11/07/16 11/08/16 11/08/16 21:43 06:45 06:45 RBC 2.37 L Hgb 7.6 L Hct 23.3 L D MCV 98 H Plt Count Lymph % (Auto) 8.0 L Lymph # 0.5 L Seg Neutrophils % 89.2 H Percent Retic PT INR APTT Heparin Anti-Xa Level Sodium Potassium Chloride Carbon Dioxide 17 L BUN 52 H Creatinine 3.3 H Glucose 263 H Calcium TIBC AST 164 H Total Creatine Kinase 1584 H CK-MB (CK-2) 268.6 H CK-MB (CK-2) Rel Index 16.9 H C-Reactive Protein Total Protein 5.6 L Albumin 2.5 L Urine WBC (Auto) U Epithel Cells (Auto) Urine Creatinine Urine Total Protein 11/08/16 11/08/16 11/08/16 06:45 12:04 12:04 RBC Hgb 8.0 L Hct 23.7 L MCV Plt Count Lymph % (Auto) Lymph # Seg Neutrophils % Percent Retic PT 16.5 H INR 1.34 H APTT 38.5 H Heparin Anti-Xa Level Sodium Potassium Chloride Carbon Dioxide BUN Creatinine Glucose Calcium TIBC AST Total Creatine Kinase 1273 H CK-MB (CK-2) 182.7 H CK-MB (CK-2) Rel Index 14.3 H C-Reactive Protein Total Protein Albumin Urine WBC (Auto) U Epithel Cells (Auto) Urine Creatinine Urine Total Protein 11/08/16 11/08/16 11/08/16 13:56 13:56 17:09 RBC Hgb Hct MCV Plt Count Lymph % (Auto) Lymph # Seg Neutrophils % Percent Retic PT INR APTT Heparin Anti-Xa Level Sodium Potassium Chloride Carbon Dioxide BUN Creatinine Glucose Calcium TIBC AST Total Creatine Kinase 947 H CK-MB (CK-2) 91.7 H CK-MB (CK-2) Rel Index 9.6 H C-Reactive Protein Total Protein Albumin Urine WBC (Auto) 25.0 H U Epithel Cells (Auto) 20.0 H Urine Creatinine 161.2 H Urine Total Protein 146 H 11/08/16 11/09/16 11/09/16 17:09 03:19 07:04 RBC Hgb 8.6 L Hct 26.1 L MCV Plt Count Lymph % (Auto) Lymph # Seg Neutrophils % Percent Retic PT INR APTT Heparin Anti-Xa Level Sodium 135 L Potassium 5.7 H D Chloride Carbon Dioxide 15 L BUN 70 H Creatinine 5.0 H D Glucose 169 H Calcium 7.9 L TIBC AST Total Creatine Kinase CK-MB (CK-2) CK-MB (CK-2) Rel Index C-Reactive Protein 5.80 H Total Protein Albumin Urine WBC (Auto) U Epithel Cells (Auto) Urine Creatinine Urine Total Protein 11/09/16 11/10/16 11/10/16 21:00 04:32 07:16 RBC Hgb 8.4 L Hct 25.6 L MCV Plt Count 111 L Lymph % (Auto) Lymph # Seg Neutrophils % Percent Retic PT INR APTT Heparin Anti-Xa Level 0.91 H 0.12 L Sodium Potassium Chloride Carbon Dioxide BUN Creatinine Glucose Calcium TIBC AST Total Creatine Kinase CK-MB (CK-2) CK-MB (CK-2) Rel Index C-Reactive Protein Total Protein Albumin Urine WBC (Auto) U Epithel Cells (Auto) Urine Creatinine Urine Total Protein 11/10/16 11/10/16 11/10/16 10:05 18:10 19:09 RBC Hgb Hct MCV Plt Count Lymph % (Auto) Lymph # Seg Neutrophils % Percent Retic 4.37 H PT INR APTT Heparin Anti-Xa Level Sodium Potassium Chloride 97.2 L Carbon Dioxide BUN 62 H Creatinine 4.4 H Glucose 206 H Calcium 7.0 L TIBC 237 L AST Total Creatine Kinase CK-MB (CK-2) CK-MB (CK-2) Rel Index C-Reactive Protein Total Protein Albumin Urine WBC (Auto) U Epithel Cells (Auto) Urine Creatinine Urine Total Protein Allied health notes reviewed: RT
[2016-11-12] MEDS: DUONEB *Not for PRN Use IH SCH ×3 (07:33→20:11)
--- NOTE | 2016-11-12 09:47 | Gastroenterology Consultation ---
History of Present Illness - Reason for Consult Consult date: 11/12/16 anemia Requesting physician: AFSANEH NEVAREZ - History of Present Illness Patient is a 70 y/o female who presented to the ER with SOB, N/V, and LE edema. She was noted to be volume overloaded and with elevated cardiac enzymes consistent with NSTEMI w/ placement on a heparin drip. Respiratory failure was treated with bipap which has now improved. She recently had a vas cath placed and is now on HD for acute renal failure. Her HGB was noted to drop from 10.2 on admission to now 8.4 w/ heparin drip d/c. GI was consulted for acute on chronic anemia with positive FOBT. This morning pt was sitting up in bed, no acute distress noted, family at bedside. Tolerating diet well w/o N/V. Denies CP , SOB, dizziness, syncope, abd pain, hematemesis, melena, diarrhea, constipation , or hematochezia. Nursing reports BM x 1 yesterday with brown stool. On daily ASA. Last colonoscopy [place] [address] Keane for hematochezia revealed internal hemorrhoids with prolapsing and colon polyps x 4. No previous EGD. No hx or Fhx of IBD or Colon CA. Past History Past Medical History: hypertension, other (DM, CVA, CKD) Past Surgical History: hysterectomy Social history: denies: smoking, alcohol abuse, prescription drug abuse, IV drug use Family history: denies: no significant family history Medications and Allergies Allergies Allergy/AdvReac Type Severity Reaction Status Date / Time No Known Allergies Allergy Unverified 02/25/15 10:42 Home Medications Medication Instructions Recorded Confirmed Last Taken Type Alendronate Sodium 70 mg PO QWEEK 02/25/15 11/08/16 1 Day Ago History Aspirin BABY CHEW TAB 81 mg PO DAILY 02/25/15 11/08/16 1 Day Ago History Calcium + Vitamin D3 Gummies 600 mg PO DAILY 02/25/15 11/08/16 1 Day Ago History Carvedilol 25 mg PO BID 02/25/15 11/08/16 1 Day Ago History Hydralazine HCl 50 mg PO TID 02/25/15 11/08/16 1 Day Ago History Memantine (Nf) [Namenda (Nf)] 10 mg PO DAILY 02/25/15 11/08/16 1 Day Ago History Potassium Chloride [Klor-Con M20] 20 meq PO DAILY 02/25/15 11/08/16 1 Day Ago History Simvastatin 20 mg PO DAILY 02/25/15 11/08/16 1 Day Ago History Valsartan 320 mg PO DAILY 02/25/15 11/08/16 1 Day Ago History amLODIPine 10 mg PO DAILY 02/25/15 11/08/16 1 Day Ago History traMADol [Ultram] 50 mg PO Q4HR PRN #12 tablet 03/25/16 11/08/16 1 Day Ago Rx Loratadine 10 mg PO DAILY 11/08/16 11/08/16 1 Day Ago History Active Meds: Active Medications Acetaminophen (Tylenol) 650 mg PO Q4H PRN PRN Reason: Pain MILD(1-3)/Fever >100.5/PAREKH Albuterol (Proventil) 2.5 mg IH Q3HRT PRN PRN Reason: Shortness Of Breath Albuterol/Ipratropium (Duoneb *Not For Prn Use*) 1 ampul IH TIDRT [facility] Last Admin: 11/12/16 07:33 Dose: 1 ampul Amlodipine Besylate (Norvasc) 10 mg PO DAILY [facility] Last Admin: 11/11/16 09:18 Dose: 10 mg Aspirin (Baby Aspirin) 81 mg PO QDAY [facility] Last Admin: 11/11/16 09:18 Dose: 81 mg Bisacodyl (Dulcolax) 10 mg DE QDAY PRN PRN Reason: Constipation unrelieved by MOM Calcium/Vitamin D (Oysco D 500 Mg-200 Unit) 1 each PO QDAY [facility] Last Admin: 11/11/16 09:18 Dose: 1 each Carvedilol (Coreg) 25 mg PO BID [facility] Last Admin: 11/11/16 21:23 Dose: 25 mg Famotidine (Pepcid) 20 mg PO QDAY [facility] Last Admin: 11/11/16 09:18 Dose: 20 mg Heparin Sodium (Porcine) (Heparin) 5,000 unit IV DAIANA PRN PRN Reason: hemodialysis Last Admin: 11/10/16 13:03 Dose: 5,000 unit Hydralazine HCl (Apresoline) 50 mg PO TID [facility] Last Admin: 11/11/16 21:22 Dose: 50 mg Levofloxacin/Dextrose (Levaquin 500mg/100ml) 500 mg in 100 mls @ 100 mls/hr IV Q48H RADHA PRN Reason: Protocol Stop: 11/12/16 20:59 Last Admin: 11/10/16 22:09 Dose: 100 mls/hr Sodium Chloride (Nacl 0.9%) 1,000 mls @ 999 mls/hr IV DAIANA PRN PRN Reason: Hypotension Sodium Chloride (Nacl 0.9%) 100 mls @ 999 mls/hr IV DAIANA PRN PRN Reason: Hypotension Magnesium Hydroxide (Milk Of Magnesia) 30 ml PO Q4H PRN PRN Reason: Constipation Memantine (Namenda Xr) 14 mg PO QDAY [facility] Last Admin: 11/11/16 09:16 Dose: 14 mg Methylprednisolone Sodium Succinate (Solu-Medrol) 40 mg IV Q12HR [facility] Last Admin: 11/11/16 21:22 Dose: 40 mg Ondansetron HCl (Zofran) 4 mg IV Q4H PRN PRN Reason: Nausea And Vomiting Oxycodone/Acetaminophen (Percocet 5/325) 1 tab PO Q6H PRN PRN Reason: Pain, Moderate (4-6) Last Admin: 11/08/16 21:46 Dose: 1 tab Simvastatin (Zocor) 20 mg PO DAILY [facility] Last Admin: 11/11/16 09:18 Dose: 20 mg Tramadol HCl (Ultram) 50 mg PO Q4H PRN PRN Reason: Pain Last Admin: 11/11/16 21:24 Dose: 50 mg Zolpidem Tartrate (Ambien) 5 mg PO QHS PRN PRN Reason: Insomnia Last Admin: 11/08/16 21:47 Dose: 5 mg Review of Systems - Review of Systems All systems: negative Respiratory: shortness of breath Gastrointestinal: other (anemia), no hematemesis, no coffee ground emesis, no BRBPR, no melena, no hematochezia Exam - Constitutional Vital Signs: Temp Pulse Resp BP Pulse Ox 98.0 F 79 18 130/69 99 11/12/16 08:57 11/12/16 08:57 11/12/16 08:57 11/12/16 08:57 11/12/16 08:57 General appearance: no acute distress - EENT Eyes: PERRL, EOM intact ENT: hearing intact - Neck Neck: normal ROM - Respiratory Respiratory effort: normal Respiratory: bilateral: diminished (anterior) - Cardiovascular Rhythm: regular Heart Sounds: Present: S1 & S2 Extremities: No edema - Gastrointestinal General gastrointestinal: Present: soft, non-tender, non-distended, normal bowel sounds - Integumentary Integumentary: Present: warm, dry - Neurologic Neurological: oriented to person, left side weakness - Psychiatric Psychiatric: appropriate mood/affect, cooperative - Labs CBC & Chem 7: 11/10/16 04:32 11/10/16 10:05 Assessment and Plan 1.anemia 2.NSTEMI 3.pulmonary edema 4.acute renal failure -HGB 8.4 -continue to monitor H&H and transfuse as needed -pt currently hemodynamically stable -no active signs of bleeding per pt and nursing -will start on daily PPI -Last colonoscopy 2014-revealed internal hemorrhoids w/prolapsing and polyps x 4 -Will consider EGD if overt bleeding develops or if necessary for cardiac intervention -Spoke with Bria ([facility]), waiting for cardiology input on need for EGD prior to cardiac cath -will follow
--- NOTE | 2016-11-12 10:06 | Progress Note ---
Assessment and Plan (1) NATHALIA vs CKD, Baseline unavailable, CRS Current Visit: Yes Status: Acute Plan to address problem: Requiring dialysis HD today Hyperkalemia and acidosis also improved. No signs of real recovery at present Renal U/S reviewed. No hydronephrosis Avoid nephrotoxics Valsartan and Lasix have been d/asher (2) Acute systolic congestive herat failure Current Visit: Yes Status: Acute Plan to address problem: UF on dialysis Strict I/Os 2D echo report reviewed. It showed EF of 10-15 % (3) NSTEMI (non-ST elevated myocardial infarction) Current Visit: Yes Status: Acute Plan to address problem: Management per Cardio (4) Acute hypoxic respiratory failure (Pneumonia /pulmonary edema) Current Visit: Yes Status: Acute Antibiotics BiPAP support as needed IV diuretics as mentioned above (5) Essential HTN (hypertension) Current Visit: Yes Status: Chronic Qualifiers: Hypertension type: essential hypertension Qualified Code(s): I10 - Essential (primary) hypertension Plan to address problem: Stable. (6) Metabolic Acidosis likley 2/2 Dx 3 Current Visit: Yes Status: Acute improved, Continue to monitor (7) Dementia Current Visit: Yes Status: Chronic Qualifiers: Dementia type: vascular dementia Alzheimer's disease onset: A Dementia behavioral disturbance: D Plan to address problem: Cont Namenda Subjective Date of service: 11/12/16 Principal diagnosis: NSTEMI Interval history: SOB improving Objective - Exam Narrative Exam: General appearance: well-developed, well-nourished, appears stated age, no distress EENT: PERRL, mucous membranes moist Neck: Present: neck supple, trachea midline. Absent: JVD/HJR, Masses Respiratory: Decreased Breath Sounds, scattered wheezes Heart: regular, normal heart rate, S1S2, no murmurs Gastrointestinal: Present: normoactive bowel sounds. Absent: tenderness Integumentary: no rash, warm and dry Neurologic: no focal deficit, alert and oriented x3, gait normal, strength 5/5 Musculoskeletal: Absent: deformities, joint swelling Psychiatric: mood/affect appropriate, cooperative - Vital Signs Vital signs: Vital Signs - 12hr 11/11/16 11/12/16 11/12/16 23:43 00:49 01:21 Temperature 97.5 F L Pulse Rate 80 Pulse Rate [ 68 Apical] Pulse Rate [ 68 From Monitor] Pulse Rate [ 68 Left Radial] Pulse Rate [ 68 Right Dorsalis Pedis] Pulse Rate [ 68 Right Radial] Respiratory 20 Rate Blood Pressure 132/64 [Right Arm] O2 Sat by Pulse 99 99 97 Oximetry 11/12/16 11/12/16 04:40 08:57 Temperature 98.7 F 98.0 F Pulse Rate Pulse Rate [ 80 79 Apical] Pulse Rate [ 80 79 From Monitor] Pulse Rate [ 80 79 Left Radial] Pulse Rate [ 80 79 Right Dorsalis Pedis] Pulse Rate [ 80 79 Right Radial] Respiratory 20 18 Rate Blood Pressure 124/67 130/69 [Right Arm] O2 Sat by Pulse 99 99 Oximetry - Lab 11/10/16 04:32 11/10/16 10:05 Most recent lab results Calcium 7.0 mg/dL (8.4-10.2) L 11/10/16 10:05 Urine Creatinine 161.2 mg/dL (0.1-20.0) H 11/08/16 13:56 Urine Total Protein 146 mg/dL (5-11.8) H 11/08/16 13:56
[2016-11-12] MEDS: PEPCID PO SCH (10:16)
[2016-11-12] MEDS: COREG PO SCH ×2 (10:16→22:08)
[2016-11-12] MEDS: OYSCO D 500 MG-200 UNIT PO SCH (10:16)
[2016-11-12] MEDS: NAMENDA XR PO SCH (10:16)
[2016-11-12] MEDS: NORVASC PO SCH (10:17)
[2016-11-12] MEDS: BABY ASPIRIN PO SCH (10:17)
[2016-11-12] MEDS: ZOCOR PO SCH (10:17)
--- NOTE | 2016-11-12 10:18 | Progress Note ---
Assessment and Plan Assessment and plan: Patient is a 70-year-old woman with a history of hypertension, type 2 diabetes mellitus, CVA, advanced dementia and osteoporosis who presented with nausea, vomiting, diarrhea and shortness of breath. Portable chest x-ray reported as cardiomegaly, may be exacerbated by diminished lung volumes, subtle asymmetric increased opacity in the right upper lobe, this could be secondary to overlapping osseous structures, but underlying infiltrate or pulmonary lesion is not excluded, this can be further assessed CT of the chest. VQ scan read as limited study, very low probability of Pulmonary embolism. Bilateral renal ultrasound read as renal parenchymal disease, stable left renal cyst, small left pleural effusion. -Non-STEMI: Patient has received 48 hours of IV heparin, stopped heparin with drop hct d/w Dr. Shane, I added Aspirin to Coreg and Zocor -Pulmonary edema due to acute diastolic heart failure: Continue diuresis -Acute renal failure/CK D3: Now on hemodialysis, nephrology following, -Acute hypoxic respiratory failure: Continue O2 therapy -Acute on chronic anemia with dropping hematocrit: Stopped heparin, checked fecal occult blood, iron studies==>positive FOBT, consulted GI, she had fairly recent c-scopy, possible EGD but will need Cardiology clearance if EGD needed. -DVT prophylaxis: SCDs only due to drop in hemoglobin Full code Echo still pending, [facility] Hemodialysis per nephrology Disposition: Awaiting home hemodialysis set up, chair time/schedule History Interval history: Patient seen and examined. Follow up on renal failure. Overnight uneventful. No cp, sob, n/v or severe headaches. Imaging, old records, testing, labs, nursing notes reviewed. Daughter Noreen at bedside Hospitalist Physical - Physical exam Narrative exam: GEN: WDWN, NAD, AWAKE, ALERT, ORIENTATED x 2 CVS: RRR, NORMAL S1S2 LUNGS/CHEST: Basilar crackles NORMAL CHEST EXPANSION B, GOOD AIR ENTRY B ABD: SOFT, NTND, GBS, NO REBOUND OR GUARDING EXT/SKIN: Bilateral leg edema resolving MSK: FROM X 4 EXTREMITIES NEURO: CN 2-12 GROSSLY INTACT, NO NEW FOCAL DEFICITS PSY: CALM - Constitutional Vitals: Temp Pulse Resp BP Pulse Ox 98.0 F 79 18 130/69 99 11/12/16 08:57 11/12/16 08:57 11/12/16 08:57 11/12/16 08:57 11/12/16 08:57 General appearance: Present: no acute distress, well-nourished Results - Labs CBC & Chem 7: 11/10/16 04:32 11/10/16 10:05 Labs: Laboratory Last Values WBC 5.6 K/mm3 (4.5-11.0) 11/08/16 06:45 RBC 2.37 M/mm3 (3.65-5.03) L 11/08/16 06:45 Hgb 8.4 gm/dl (10.1-14.3) L 11/10/16 04:32 Hct 25.6 % (30.3-42.9) L 11/10/16 04:32 MCV 98 fl (79-97) H 11/08/16 06:45 MCH 32 pg (28-32) 11/08/16 06:45 MCHC 33 % (30-34) 11/08/16 06:45 RDW 13.9 % (13.2-15.2) 11/08/16 06:45 Plt Count 111 K/mm3 (140-440) L 11/10/16 04:32 Lymph % (Auto) 8.0 % (13.4-35.0) L 11/08/16 06:45 [place] % (Auto) 2.7 % (0.0-7.3) 11/08/16 06:45 Eos % (Auto) 0.0 % (0.0-4.3) 11/08/16 06:45 Baso % (Auto) 0.1 % (0.0-1.8) 11/08/16 06:45 Lymph # 0.5 K/mm3 (1.2-5.4) L 11/08/16 06:45 [place] # 0.1 K/mm3 (0.0-0.8) 11/08/16 06:45 Eos # 0.0 K/mm3 (0.0-0.4) 11/08/16 06:45 Baso # 0.0 K/mm3 (0.0-0.1) 11/08/16 06:45 Seg Neutrophils % 89.2 % (40.0-70.0) H 11/08/16 06:45 Seg Neutrophils # 5.0 K/mm3 (1.8-7.7) 11/08/16 06:45 Percent Retic 4.37 % (0.78-2.58) H 11/10/16 19:09 PT 16.5 Sec. (12.2-14.9) H 11/08/16 12:04 INR 1.34 (0.87-1.13) H 11/08/16 12:04 APTT 38.5 Sec. (24.2-36.6) H 11/08/16 12:04 D-Dimer 1575.53 ng/mlDDU (0-234) H 11/07/16 16:35 Heparin Anti-Xa Level 0.12 U.I./ml (0.3-0.7) L 11/10/16 07:16 POC ABG pH 7.371 (7.35-7.45) 11/07/16 18:14 POC ABG pCO2 27.0 (35-45) L 11/07/16 18:14 POC ABG pO2 124 (80-105) H 11/07/16 18:14 POC ABG HCO3 15.6 11/07/16 18:14 POC ABG Total CO2 16 11/07/16 18:14 POC ABG O2 Sat 99 11/07/16 18:14 POC ABG Base Excess -10 11/07/16 18:14 FiO2 35 % 11/07/16 18:14 Sodium 137 mmol/L (137-145) 11/10/16 10:05 Potassium 3.7 mmol/L (3.6-5.0) D 11/10/16 10:05 Chloride 97.2 mmol/L (98-107) L 11/10/16 10:05 Carbon Dioxide 22 mmol/L (22-30) D 11/10/16 10:05 Anion Gap 22 mmol/L 11/10/16 10:05 BUN 62 mg/dL (7-17) H 11/10/16 10:05 Creatinine 4.4 mg/dL (0.7-1.2) H 11/10/16 10:05 Estimated GFR 12 ml/min 11/10/16 10:05 BUN/Creatinine Ratio 14.09 % 11/10/16 10:05 Glucose 206 mg/dL (65-100) H 11/10/16 10:05 Hemoglobin A1c 4.8 % (4-6) 11/07/16 16:35 Lactic Acid 1.10 mmol/L (0.7-2.0) 11/09/16 03:19 Calcium 7.0 mg/dL (8.4-10.2) L 11/10/16 10:05 Iron 70 ug/dL (37-170) 11/10/16 18:10 TIBC 237 mcg/dL (250-450) L 11/10/16 18:10 Ferritin 211.2 ng/mL (13.0-400.0) 11/10/16 18:10 Total Bilirubin 0.40 mg/dL (0.1-1.2) 11/08/16 06:45 AST 164 units/L (5-40) H 11/08/16 06:45 ALT 47 units/L (7-56) 11/08/16 06:45 Alkaline Phosphatase 89 units/L (35-129) 11/08/16 06:45 Total Creatine Kinase 947 units/L (30-135) H 11/08/16 17:09 CK-MB (CK-2) 91.7 ng/mL (0.0-4.0) H 11/08/16 17:09 CK-MB (CK-2) Rel Index 9.6 (0-4) H 11/08/16 17:09 Troponin T 6.920 ng/mL (0.00-0.029) H* 11/07/16 18:36 C-Reactive Protein 5.80 mg/dL (0.00-1.30) H 11/08/16 17:09 NT-Pro-B Natriuret Pep 53428 pg/mL (0-900) H 11/07/16 16:35 Total Protein 5.6 g/dL (6.3-8.2) L 11/08/16 06:45 Albumin 2.5 g/dL (3.9-5) L 11/08/16 06:45 Albumin/Globulin Ratio 0.8 % 11/08/16 06:45 Triglycerides 69 mg/dL (2-149) 11/07/16 16:35 Cholesterol 129 mg/dL (50-199) 11/07/16 16:35 LDL Cholesterol Direct 56 mg/dL (50-130) 11/07/16 16:35 HDL Cholesterol 60 mg/dL (40-59) H 11/07/16 16:35 Cholesterol/HDL Ratio 2.15 % 11/07/16 16:35 TSH 4.120 mlU/mL (0.270-4.200) 11/09/16 15:38 Urine Color Yellow (Yellow) 11/08/16 13:56 Urine Turbidity Cloudy (Clear) 11/08/16 13:56 Urine pH 5.0 (5.0-7.0) 11/08/16 13:56 Ur Specific [place] 1.013 (1.003-1.030) 11/08/16 13:56 Urine Protein 100 mg/dl mg/dL (Negative) 11/08/16 13:56 Urine Glucose (UA) Neg mg/dL (Negative) 11/08/16 13:56 Urine Ketones Neg mg/dL (Negative) 11/08/16 13:56 Urine Blood Lg (Negative) 11/08/16 13:56 Urine Nitrite Neg (Negative) 11/08/16 13:56 Urine Bilirubin Neg (Negative) 11/08/16 13:56 Urine Urobilinogen < 2.0 mg/dL (<2.0) 11/08/16 13:56 Ur Leukocyte Esterase Mod (Negative) 11/08/16 13:56 Urine WBC (Auto) 25.0 /HPF (0.0-6.0) H 11/08/16 13:56 Urine RBC (Auto) > 182.0 /HPF (0.0-6.0) 11/08/16 13:56 U Epithel Cells (Auto) 20.0 /HPF (0-13.0) H 11/08/16 13:56 Urine WBC Clumps Few /HPF 11/08/16 13:56 Ur Transition Epith Cell 2 /HPF 11/08/16 13:56 Urine Creatinine 161.2 mg/dL (0.1-20.0) H 11/08/16 13:56 Protein/Creatinin Ratio 0.91 11/08/16 13:56 Urine Total Protein 146 mg/dL (5-11.8) H 11/08/16 13:56 Hep Bs Antigen Non-reactive (Negative) 11/10/16 04:32 Hepatitis C Antibody Non-reactive (NonReactive) 11/10/16 04:32
[2016-11-12] MEDS: APRESOLINE PO SCH ×3 (10:24→22:08)
--- NOTE | 2016-11-12 10:26 | Progress Note ---
Assessment and Plan - Patient Problems (1) Acute pulmonary edema Current Visit: Yes Status: Acute Plan to address problem: Improved with UF/HD Continue with supplemental oxygen to keep O2 sats>94% (2) Acute respiratory failure with hypoxia Current Visit: Yes Status: Acute Plan to address problem: Much improved with HD/UF Supplemental oxygen, to keep sats>94%. (3) NSTEMI (non-ST elevated myocardial infarction) Current Visit: Yes Status: Acute Plan to address problem: Per cardiology service Cardio-protective measures For cardiac catherterization in the morning (4) CKD (chronic kidney disease) stage 4, GFR 15-29 ml/min Current Visit: Yes Status: Chronic Plan to address problem: Per renal service On HD (5) Thrombocytopenia Current Visit: Yes Status: Acute Plan to address problem: Monitor closely. If the counts drop by >50% from baseline , check HIT antibodies Subjective Date of service: 11/12/16 Principal diagnosis: NSTEMI Interval history: Seen and examined. Vitals, labs, medications, chart reviewed. Much improved. No acute overnight events reported or documented. Denies any chest pain, no shortness of breath. Plan for possible cardiac cath in the morning. Objective - Exam Narrative Exam: General appearance: well-developed, well-nourished, appears stated age, no distress EENT: PERRL, mucous membranes moist Neck: Present: neck supple, trachea midline. Absent: JVD/HJR, Masses Respiratory: Decreased Breath Sounds, scattered wheezes Heart: regular, normal heart rate, S1S2, no murmurs Gastrointestinal: Present: normoactive bowel sounds. Absent: tenderness Integumentary: no rash, warm and dry Neurologic: no focal deficit, alert and oriented x3, gait normal, strength 5/5 Musculoskeletal: Absent: deformities, joint swelling Psychiatric: mood/affect appropriate, cooperative Vital Signs - 12hr 11/11/16 11/12/16 11/12/16 23:43 00:49 01:21 Temperature 97.5 F L Pulse Rate 80 Pulse Rate [ 68 Apical] Pulse Rate [ 68 From Monitor] Pulse Rate [ 68 Left Radial] Pulse Rate [ 68 Right Dorsalis Pedis] Pulse Rate [ 68 Right Radial] Respiratory 20 Rate Blood Pressure 132/64 [Right Arm] O2 Sat by Pulse 99 99 97 Oximetry 11/12/16 11/12/16 04:40 08:57 Temperature 98.7 F 98.0 F Pulse Rate Pulse Rate [ 80 79 Apical] Pulse Rate [ 80 79 From Monitor] Pulse Rate [ 80 79 Left Radial] Pulse Rate [ 80 79 Right Dorsalis Pedis] Pulse Rate [ 80 79 Right Radial] Respiratory 20 18 Rate Blood Pressure 124/67 130/69 [Right Arm] O2 Sat by Pulse 99 99 Oximetry Constitutional: no acute distress Eyes: non-icteric ENT: oropharynx moist Neck: supple, no JVD Effort: normal Ascultation: Bilateral: diminished breath sounds, rales (basila) Cardiovascular: regular rate and rhythm Gastrointestinal: normoactive bowel sounds, soft, non-distended Integumentary: normal Extremities: no cyanosis, no edema, pink and warm, pulses normal, no ischemia or petechiae Neurologic: normal mental status, non-focal exam Psychiatric: mood appropriate, affect normal CBC and BMP: 11/13/16 04:47 11/13/16 04:47 ABG, PT/INR, D-dimer: ABG POC ABG pH 7.371 (7.35-7.45) 11/07/16 18:14 POC ABG pCO2 27.0 (35-45) L 11/07/16 18:14 POC ABG pO2 124 (80-105) H 11/07/16 18:14 POC ABG HCO3 15.6 11/07/16 18:14 POC ABG Total CO2 16 11/07/16 18:14 POC ABG O2 Sat 99 11/07/16 18:14 PT/INR, D-dimer PT 16.5 Sec. (12.2-14.9) H 11/08/16 12:04 INR 1.34 (0.87-1.13) H 11/08/16 12:04 D-Dimer 1575.53 ng/mlDDU (0-234) H 11/07/16 16:35 Abnormal lab findings: Abnormal Labs 11/07/16 11/08/16 11/08/16 21:43 06:45 06:45 RBC 2.37 L Hgb 7.6 L Hct 23.3 L D MCV 98 H Plt Count Lymph % (Auto) 8.0 L Lymph # 0.5 L Seg Neutrophils % 89.2 H Percent Retic PT INR APTT Heparin Anti-Xa Level Sodium Potassium Chloride Carbon Dioxide 17 L BUN 52 H Creatinine 3.3 H Glucose 263 H Calcium TIBC AST 164 H Total Creatine Kinase 1584 H CK-MB (CK-2) 268.6 H CK-MB (CK-2) Rel Index 16.9 H C-Reactive Protein Total Protein 5.6 L Albumin 2.5 L Urine WBC (Auto) U Epithel Cells (Auto) Urine Creatinine Urine Total Protein 11/08/16 11/08/16 11/08/16 06:45 12:04 12:04 RBC Hgb 8.0 L Hct 23.7 L MCV Plt Count Lymph % (Auto) Lymph # Seg Neutrophils % Percent Retic PT 16.5 H INR 1.34 H APTT 38.5 H Heparin Anti-Xa Level Sodium Potassium Chloride Carbon Dioxide BUN Creatinine Glucose Calcium TIBC AST Total Creatine Kinase 1273 H CK-MB (CK-2) 182.7 H CK-MB (CK-2) Rel Index 14.3 H C-Reactive Protein Total Protein Albumin Urine WBC (Auto) U Epithel Cells (Auto) Urine Creatinine Urine Total Protein 11/08/16 11/08/16 11/08/16 13:56 13:56 17:09 RBC Hgb Hct MCV Plt Count Lymph % (Auto) Lymph # Seg Neutrophils % Percent Retic PT INR APTT Heparin Anti-Xa Level Sodium Potassium Chloride Carbon Dioxide BUN Creatinine Glucose Calcium TIBC AST Total Creatine Kinase 947 H CK-MB (CK-2) 91.7 H CK-MB (CK-2) Rel Index 9.6 H C-Reactive Protein Total Protein Albumin Urine WBC (Auto) 25.0 H U Epithel Cells (Auto) 20.0 H Urine Creatinine 161.2 H Urine Total Protein 146 H 11/08/16 11/09/16 11/09/16 17:09 03:19 07:04 RBC Hgb 8.6 L Hct 26.1 L MCV Plt Count Lymph % (Auto) Lymph # Seg Neutrophils % Percent Retic PT INR APTT Heparin Anti-Xa Level Sodium 135 L Potassium 5.7 H D Chloride Carbon Dioxide 15 L BUN 70 H Creatinine 5.0 H D Glucose 169 H Calcium 7.9 L TIBC AST Total Creatine Kinase CK-MB (CK-2) CK-MB (CK-2) Rel Index C-Reactive Protein 5.80 H Total Protein Albumin Urine WBC (Auto) U Epithel Cells (Auto) Urine Creatinine Urine Total Protein 07/11/10/16 11/10/16 21:00 04:32 07:16 RBC Hgb 8.4 L Hct 25.6 L MCV Plt Count 111 L Lymph % (Auto) Lymph # Seg Neutrophils % Percent Retic PT INR APTT Heparin Anti-Xa Level 0.91 H 0.12 L Sodium Potassium Chloride Carbon Dioxide BUN Creatinine Glucose Calcium TIBC AST Total Creatine Kinase CK-MB (CK-2) CK-MB (CK-2) Rel Index C-Reactive Protein Total Protein Albumin Urine WBC (Auto) U Epithel Cells (Auto) Urine Creatinine Urine Total Protein 11/10/16 11/10/16 11/10/16 10:05 18:10 19:09 RBC Hgb Hct MCV Plt Count Lymph % (Auto) Lymph # Seg Neutrophils % Percent Retic 4.37 H PT INR APTT Heparin Anti-Xa Level Sodium Potassium Chloride 97.2 L Carbon Dioxide BUN 62 H Creatinine 4.4 H Glucose 206 H Calcium 7.0 L TIBC 237 L AST Total Creatine Kinase CK-MB (CK-2) CK-MB (CK-2) Rel Index C-Reactive Protein Total Protein Albumin Urine WBC (Auto) U Epithel Cells (Auto) Urine Creatinine Urine Total Protein Allied health notes reviewed: RT
--- NOTE | 2016-11-12 10:33 | Progress Note ---
Assessment and Plan Renal failure initiated on dialysis this admission Pulmonary edema Anemia NSTEMI Prior CVA Hypertension NSV, asymptomatic Plan: Echocardiogram for LVEF assessment. We will increase beta abril therapy for suppression of NSVT. Further cardiac evaluation for the non-ST elevation myocardial infarction would depend on clinical course. Subjective Date of service: 11/12/16 Principal diagnosis: NSTEMI Interval history: Patient denies chest pain and shortness of breath. No distress noted. Short burst of wide complex tachycardia on telemetry overnight. Patient remained asymptomatic. Objective Vital Signs Temp Pulse Pulse Pulse Pulse Pulse Pulse 11/12/16 08:57 98.0 F 79 79 79 79 11/12/16 04:40 98.7 F 80 80 80 80 11/12/16 01:21 11/12/16 00:49 97.5 F L 68 68 68 68 11/11/16 23:43 80 11/11/16 22:00 93 H 11/11/16 21:24 11/11/16 21:23 70 11/11/16 21:22 70 11/11/16 21:05 97.6 F 70 70 70 70 11/11/16 20:00 77 11/11/16 19:47 11/11/16 19:44 75 11/11/16 16:07 98 F 83 83 83 83 11/11/16 12:00 98.4 F 80 80 80 80 Pulse Resp Resp Resp BP BP Pulse Ox 11/12/16 08:57 79 18 130/69 99 11/12/16 04:40 80 20 124/67 99 11/12/16 01:21 97 11/12/16 00:49 68 20 132/64 99 11/11/16 23:43 99 11/11/16 22:00 20 18 96 11/11/16 21:24 18 11/11/16 21:23 129/66 11/11/16 21:22 129/66 11/11/16 21:05 70 20 129/66 99 11/11/16 20:00 18 11/11/16 19:47 97 11/11/16 19:44 18 11/11/16 16:07 83 20 117/57 98 11/11/16 12:00 80 20 117/70 98 - Physical Examination General: No Apparent Distress HEENT: Positive: PERRL Neck: Positive: trachea midline Cardiac: Positive: Reg Rate and Rhythm Neuro: Positive: Grossly Intact Abdomen: Positive: Soft, Active Bowel Sounds Skin: Positive: Clear Extremities: Present: +1 Edema - Imaging and Cardiology EKG: report reviewed (Sinus Tach pvc's LVH 119/min Repolarization abnormalities) - Allied health notes Allied health notes reviewed: RT
[2016-11-12] MEDS ORDERED: NACL 0.9% 100 ML IV PRN (11:00)
[2016-11-12] MEDS ORDERED: HEPARIN ONE (14:01)
[2016-11-12] MEDS: PROTONIX PO SCH (15:07)
[2016-11-12] MEDS: ULTRAM PO PRN (22:09)
[2016-11-13 05:36] LABS: Hematocrit 27.8 % (30.3-42.9); Hemoglobin 9.1 gm/dl (10.1-14.3); Mean Corpuscular HGB Conc 33 % (30-34); Mean Corpuscular Hemoglobin 32 pg (28-32); Mean Corpuscular Volume 99 fl (79-97); Red Blood Count 2.82 M/mm3 (3.65-5.03); Red Cell Distribution Width 14.7 % (13.2-15.2); White Blood Count 8.5 K/mm3 (4.5-11.0)
[2016-11-13 05:39] LABS: Platelet Count 89 K/mm3 (140-440)
[2016-11-13 05:44] LABS: INR 1.1 (0.87-1.13)
[2016-11-13 05:58] LABS: BUN/Creatinine Ratio 16.66; Calcium 7.1 mg/dL (8.4-10.2); Chloride 96.8 mmol/L (98-107); Potassium 4.4 mmol/L (3.6-5.0)
[2016-11-13 06:40] LABS: Anisocytosis 1+; Basophils % (Manual) 0 % (0.0-1.8); Blastocytes % (Manual) 0 %; Diff Status Complete; Eosinophils % (Manual) 0 % (0.0-4.3); Platelet Estimate Consistent w Auto; Polychromasia Rare
--- NOTE | 2016-11-13 08:13 | Progress Note ---
Assessment and Plan Assessment and plan: Patient is a 70-year-old woman with a history of hypertension, type 2 diabetes mellitus, CVA, advanced dementia and osteoporosis who presented with nausea, vomiting, diarrhea and shortness of breath. Portable chest x-ray reported as cardiomegaly, may be exacerbated by diminished lung volumes, subtle asymmetric increased opacity in the right upper lobe, this could be secondary to overlapping osseous structures, but underlying infiltrate or pulmonary lesion is not excluded, this can be further assessed CT of the chest. VQ scan read as limited study, very low probability of Pulmonary embolism. Bilateral renal ultrasound read as renal parenchymal disease, stable left renal cyst, small left pleural effusion. -Non-STEMI: Patient has received 48 hours of IV heparin, stopped heparin with drop hct d/w Dr. Shane, I added Aspirin to Coreg and Zocor -Pulmonary edema due to acute systolic heart failure: Continue diuresis -Acute renal failure/CK D3: Now on hemodialysis, nephrology following, -Acute hypoxic respiratory failure: Continue O2 therapy -Acute on chronic anemia with dropping hematocrit: Stopped heparin, checked fecal occult blood, iron studies==>positive FOBT, consulted GI, she had fairly recent c-scopy, possible EGD but will need Cardiology clearance if EGD needed. -DVT prophylaxis: SCDs only due to drop in hemoglobin Full code 11/12/16 Echo still pending, [facility] Hemodialysis per nephrology Disposition: Awaiting home hemodialysis set up, chair time/schedule 11/13/16: Transthoracic echocardiogram report by Dr. Shane read as left ventricular chamber size severely dilated, global left systolic function is severely decreased, estimated ejection fraction is 10-15%, mild concentric left ventricular hypertrophy, left atrium is severely dilated, moderate to severe MR , mild to moderate TR, evidence of mild pulmonary hypertension, trivial pericardial effusion, catheters visualizing right atrium. Patient going for cardiac catheterization today. History Interval history: Patient seen and examined. Follow up on renal failure. Overnight uneventful. No cp, sob, n/v or severe headaches. Imaging, old records, testing, labs, nursing notes reviewed. Daughter Noreen at bedside Hospitalist Physical - Physical exam Narrative exam: GEN: WDWN, NAD, AWAKE, ALERT, ORIENTATED x 2 CVS: RRR, NORMAL S1S2 LUNGS/CHEST: Basilar crackles NORMAL CHEST EXPANSION B, GOOD AIR ENTRY B ABD: SOFT, NTND, GBS, NO REBOUND OR GUARDING EXT/SKIN: Bilateral leg edema resolving MSK: FROM X 4 EXTREMITIES NEURO: CN 2-12 GROSSLY INTACT, NO NEW FOCAL DEFICITS PSY: CALM - Constitutional Vitals: Temp Pulse Resp BP Pulse Ox 97.8 F 78 20 127/62 93 11/13/16 05:16 11/13/16 05:16 11/13/16 05:16 11/13/16 05:16 11/13/16 05:16 General appearance: Present: no acute distress, well-nourished Results - Labs CBC & Chem 7: 11/13/16 04:47 11/13/16 04:47 Labs: Laboratory Last Values WBC 8.5 K/mm3 (4.5-11.0) 11/13/16 04:47 RBC 2.82 M/mm3 (3.65-5.03) L 11/13/16 04:47 Hgb 9.1 gm/dl (10.1-14.3) L 11/13/16 04:47 Hct 27.8 % (30.3-42.9) L 11/13/16 04:47 MCV 99 fl (79-97) H 11/13/16 04:47 MCH 32 pg (28-32) 11/13/16 04:47 MCHC 33 % (30-34) 11/13/16 04:47 RDW 14.7 % (13.2-15.2) 11/13/16 04:47 Plt Count 89 K/mm3 (140-440) L 11/13/16 04:47 Lymph % (Auto) 8.0 % (13.4-35.0) L 11/08/16 06:45 [place] % (Auto) 2.7 % (0.0-7.3) 11/08/16 06:45 Eos % (Auto) 0.0 % (0.0-4.3) 11/08/16 06:45 Baso % (Auto) 0.1 % (0.0-1.8) 11/08/16 06:45 Lymph # 0.5 K/mm3 (1.2-5.4) L 11/08/16 06:45 [place] # 0.1 K/mm3 (0.0-0.8) 11/08/16 06:45 Eos # 0.0 K/mm3 (0.0-0.4) 11/08/16 06:45 Baso # 0.0 K/mm3 (0.0-0.1) 11/08/16 06:45 Add Manual Diff Complete 11/13/16 04:47 Total Counted 100 11/13/16 04:47 Seg Neutrophils % [employer] Super[employer] 11/13/16 04:47 Seg Neuts % (Manual) 92.0 % (40.0-70.0) H 11/13/16 04:47 Band Neutrophils % 0 % 11/13/16 04:47 Lymphocytes % (Manual) 5.0 % (13.4-35.0) L 11/13/16 04:47 Reactive Lymphs % (Man) 0 % 11/13/16 04:47 Monocytes % (Manual) 3.0 % (0.0-7.3) 11/13/16 04:47 Eosinophils % (Manual) 0 % (0.0-4.3) 11/13/16 04:47 Basophils % (Manual) 0 % (0.0-1.8) 11/13/16 04:47 Metamyelocytes % 0 % 11/13/16 04:47 Myelocytes % 0 % 11/13/16 04:47 Promyelocytes % 0 % 11/13/16 04:47 Blast Cells % 0 % 11/13/16 04:47 Nucleated RBC % Not Reportable 11/13/16 04:47 Seg Neutrophils # 5.0 K/mm3 (1.8-7.7) 11/08/16 06:45 Seg Neutrophils # Man 7.8 K/mm3 (1.8-7.7) H 11/13/16 04:47 Band Neutrophils # 0.0 K/mm3 11/13/16 04:47 Lymphocytes # (Manual) 0.4 K/mm3 (1.2-5.4) L 11/13/16 04:47 Abs React Lymphs (Man) 0.0 K/mm3 11/13/16 04:47 Monocytes # (Manual) 0.3 K/mm3 (0.0-0.8) 11/13/16 04:47 Eosinophils # (Manual) 0.0 K/mm3 (0.0-0.4) 11/13/16 04:47 Basophils # (Manual) 0.0 K/mm3 (0.0-0.1) 11/13/16 04:47 Metamyelocytes # 0.0 K/mm3 11/13/16 04:47 Myelocytes # 0.0 K/mm3 11/13/16 04:47 Promyelocytes # 0.0 K/mm3 11/13/16 04:47 Blast Cells # 0.0 K/mm3 11/13/16 04:47 WBC Morphology Not Reportable 11/13/16 04:47 Hypersegmented Neuts Not Reportable 11/13/16 04:47 Hyposegmented Neuts Not Reportable 11/13/16 04:47 Hypogranular Neuts Not Reportable 11/13/16 04:47 Smudge Cells Not Reportable 11/13/16 04:47 Toxic Granulation Not Reportable 11/13/16 04:47 Toxic Vacuolation Not Reportable 11/13/16 04:47 Dohle Bodies Not Reportable 11/13/16 04:47 Pelger-Huet Anomaly Not Reportable 11/13/16 04:47 Tamanna Rods Not Reportable 11/13/16 04:47 Platelet Estimate Consistent w auto 11/13/16 04:47 Clumped Platelets Not Reportable 11/13/16 04:47 Plt Clumps, EDTA Not Reportable 11/13/16 04:47 Large Platelets Not Reportable 11/13/16 04:47 Giant Platelets Not Reportable 11/13/16 04:47 Platelet Satelliting Not Reportable 11/13/16 04:47 Plt Morphology Comment Not Reportable 11/13/16 04:47 RBC Morphology Not Reportable 11/13/16 04:47 Dimorphic RBCs Not Reportable 11/13/16 04:47 Polychromasia Rare 11/13/16 04:47 Hypochromasia Not Reportable 11/13/16 04:47 Poikilocytosis Not Reportable 11/13/16 04:47 Anisocytosis 1+ 11/13/16 04:47 Microcytosis Not Reportable 11/13/16 04:47 Macrocytosis Not Reportable 11/13/16 04:47 Spherocytes Not Reportable 11/13/16 04:47 Pappenheimer Bodies Not Reportable 11/13/16 04:47 Sickle Cells Not Reportable 11/13/16 04:47 Target Cells Not Reportable 11/13/16 04:47 Tear Drop Cells Not Reportable 11/13/16 04:47 Ovalocytes Not Reportable 11/13/16 04:47 Helmet Cells Not Reportable 11/13/16 04:47 [place] Bodies Not Reportable 11/13/16 04:47 Bertrand Rings Not Reportable 11/13/16 04:47 Renny Cells Not Reportable 11/13/16 04:47 Bite Cells Not Reportable 11/13/16 04:47 Crenated Cell Not Reportable 11/13/16 04:47 Elliptocytes Not Reportable 11/13/16 04:47 Acanthocytes (Spur) Not Reportable 11/13/16 04:47 Rouleaux Not Reportable 11/13/16 04:47 Hemoglobin C Crystals Not Reportable 11/13/16 04:47 Schistocytes Not Reportable 11/13/16 04:47 Malaria parasites Not Reportable 11/13/16 04:47 Percent Retic 4.37 % (0.78-2.58) H 11/10/16 19:09 Javi Bodies Not Reportable 11/13/16 04:47 Hem Pathologist Commnt No 11/13/16 04:47 PT 14.8 Sec. (12.2-14.9) 11/13/16 04:47 INR 1.10 (0.87-1.13) 11/13/16 04:47 APTT 38.5 Sec. (24.2-36.6) H 11/08/16 12:04 D-Dimer 1575.53 ng/mlDDU (0-234) H 11/07/16 16:35 Heparin Anti-Xa Level 0.12 U.I./ml (0.3-0.7) L 11/10/16 07:16 POC ABG pH 7.371 (7.35-7.45) 11/07/16 18:14 POC ABG pCO2 27.0 (35-45) L 11/07/16 18:14 POC ABG pO2 124 (80-105) H 11/07/16 18:14 POC ABG HCO3 15.6 11/07/16 18:14 POC ABG Total CO2 16 11/07/16 18:14 POC ABG O2 Sat 99 11/07/16 18:14 POC ABG Base Excess -10 11/07/16 18:14 FiO2 35 % 11/07/16 18:14 Sodium 138 mmol/L (137-145) 11/13/16 04:47 Potassium 4.4 mmol/L (3.6-5.0) 11/13/16 04:47 Chloride 96.8 mmol/L (98-107) L 11/13/16 04:47 Carbon Dioxide 25 mmol/L (22-30) 11/13/16 04:47 Anion Gap 21 mmol/L 11/13/16 04:47 BUN 60 mg/dL (7-17) H 11/13/16 04:47 Creatinine 3.6 mg/dL (0.7-1.2) H 11/13/16 04:47 Estimated GFR 15 ml/min 11/13/16 04:47 BUN/Creatinine Ratio 16.66 % 11/13/16 04:47 Glucose 175 mg/dL (65-100) H 11/13/16 04:47 POC Glucose 174 (70-105) H 11/13/16 05:48 Hemoglobin A1c 4.8 % (4-6) 11/07/16 16:35 Lactic Acid 1.10 mmol/L (0.7-2.0) 11/09/16 03:19 Calcium 7.1 mg/dL (8.4-10.2) L 11/13/16 04:47 Iron 70 ug/dL (37-170) 11/10/16 18:10 TIBC 237 mcg/dL (250-450) L 11/10/16 18:10 Ferritin 211.2 ng/mL (13.0-400.0) 11/10/16 18:10 Total Bilirubin 0.40 mg/dL (0.1-1.2) 11/08/16 06:45 AST 164 units/L (5-40) H 11/08/16 06:45 ALT 47 units/L (7-56) 11/08/16 06:45 Alkaline Phosphatase 89 units/L (35-129) 11/08/16 06:45 Total Creatine Kinase 947 units/L (30-135) H 11/08/16 17:09 CK-MB (CK-2) 91.7 ng/mL (0.0-4.0) H 11/08/16 17:09 CK-MB (CK-2) Rel Index 9.6 (0-4) H 11/08/16 17:09 Troponin T 6.920 ng/mL (0.00-0.029) H* 11/07/16 18:36 C-Reactive Protein 5.80 mg/dL (0.00-1.30) H 11/08/16 17:09 NT-Pro-B Natriuret Pep 61507 pg/mL (0-900) H 11/07/16 16:35 Total Protein 5.6 g/dL (6.3-8.2) L 11/08/16 06:45 Albumin 2.5 g/dL (3.9-5) L 11/08/16 06:45 Albumin/Globulin Ratio 0.8 % 11/08/16 06:45 Triglycerides 69 mg/dL (2-149) 11/07/16 16:35 Cholesterol 129 mg/dL (50-199) 11/07/16 16:35 LDL Cholesterol Direct 56 mg/dL (50-130) 11/07/16 16:35 HDL Cholesterol 60 mg/dL (40-59) H 11/07/16 16:35 Cholesterol/HDL Ratio 2.15 % 11/07/16 16:35 TSH 4.120 mlU/mL (0.270-4.200) 11/09/16 15:38 Urine Color Yellow (Yellow) 11/08/16 13:56 Urine Turbidity Cloudy (Clear) 11/08/16 13:56 Urine pH 5.0 (5.0-7.0) 11/08/16 13:56 Ur Specific [place] 1.013 (1.003-1.030) 11/08/16 13:56 Urine Protein 100 mg/dl mg/dL (Negative) 11/08/16 13:56 Urine Glucose (UA) Neg mg/dL (Negative) 11/08/16 13:56 Urine Ketones Neg mg/dL (Negative) 11/08/16 13:56 Urine Blood Lg (Negative) 11/08/16 13:56 Urine Nitrite Neg (Negative) 11/08/16 13:56 Urine Bilirubin Neg (Negative) 11/08/16 13:56 Urine Urobilinogen < 2.0 mg/dL (<2.0) 11/08/16 13:56 Ur Leukocyte Esterase Mod (Negative) 11/08/16 13:56 Urine WBC (Auto) 25.0 /HPF (0.0-6.0) H 11/08/16 13:56 Urine RBC (Auto) > 182.0 /HPF (0.0-6.0) 11/08/16 13:56 U Epithel Cells (Auto) 20.0 /HPF (0-13.0) H 11/08/16 13:56 Urine WBC Clumps Few /HPF 11/08/16 13:56 Ur Transition Epith Cell 2 /HPF 11/08/16 13:56 Urine Creatinine 161.2 mg/dL (0.1-20.0) H 11/08/16 13:56 Protein/Creatinin Ratio 0.91 11/08/16 13:56 Urine Total Protein 146 mg/dL (5-11.8) H 11/08/16 13:56 Hep Bs Antigen Non-reactive (Negative) 11/10/16 04:32 Hepatitis C Antibody Non-reactive (NonReactive) 11/10/16 04:32
[2016-11-13] MEDS ORDERED: NITROGLYCERIN SYRINGE 0 ML ONE (08:43)
[2016-11-13] MEDS ORDERED: XYLOCAINE 2% INFILTRATI ONE (08:43)
[2016-11-13] MEDS ORDERED: CALAN ONE (08:43)
[2016-11-13] MEDS ORDERED: HEPARIN/NS 5000 UNIT/500ML(CATH LAB) 1,000 ML IR ONE (08:43)
[2016-11-13] MEDS ORDERED: VERSED ONE (08:50)
[2016-11-13] MEDS ORDERED: SUBLIMAZE ONE (08:50)
[2016-11-13] MEDS ORDERED: NACL 0.9% 500 ML 500 ML ONE (08:55)
[2016-11-13] MEDS ORDERED: BENADRYL ONE (08:57)
--- NOTE | 2016-11-13 09:04 | Progress Note ---
Assessment and Plan (1) NATHALIA vs CKD, Baseline unavailable, CRS Current Visit: Yes Status: Acute Plan to address problem: Requiring dialysis Next HD on Wednesday Hyperkalemia and acidosis also improved. No signs of real recovery at present Renal U/S reviewed. No hydronephrosis Avoid nephrotoxics Valsartan and Lasix have been d/asher (2) Acute systolic congestive herat failure Current Visit: Yes Status: Acute Plan to address problem: UF on dialysis Strict I/Os 2D echo report reviewed. It showed EF of 10-15 % (3) NSTEMI (non-ST elevated myocardial infarction) Current Visit: Yes Status: Acute Plan to address problem: Management per Cardio (4) Acute hypoxic respiratory failure (Pneumonia /pulmonary edema) Current Visit: Yes Status: Acute Antibiotics BiPAP support as needed IV diuretics as mentioned above (5) Essential HTN (hypertension) Current Visit: Yes Status: Chronic Qualifiers: Hypertension type: essential hypertension Qualified Code(s): I10 - Essential (primary) hypertension Plan to address problem: Stable. (6) Metabolic Acidosis [facility] 2/2 Dx 3 Current Visit: Yes Status: Acute improved, Continue to monitor (7) Dementia Current Visit: Yes Status: Chronic Qualifiers: Dementia type: vascular dementia Alzheimer's disease onset: A Dementia behavioral disturbance: D Plan to address problem: Cont Namenda Subjective Date of service: 11/13/16 Principal diagnosis: NSTEMI Interval history: SOB improved. Objective - Exam Narrative Exam: General appearance: well-developed, well-nourished, appears stated age, no distress EENT: PERRL, mucous membranes moist Neck: Present: neck supple, trachea midline. Absent: JVD/HJR, Masses Respiratory: Decreased Breath Sounds, scattered wheezes Heart: regular, normal heart rate, S1S2, no murmurs Gastrointestinal: Present: normoactive bowel sounds. Absent: tenderness Integumentary: no rash, warm and dry Neurologic: no focal deficit, alert and oriented x3, gait normal, strength 5/5 Musculoskeletal: Absent: deformities, joint swelling Psychiatric: mood/affect appropriate, cooperative - Vital Signs Vital signs: Vital Signs - 12hr 11/12/16 11/12/16 11/12/16 22:00 22:08 22:09 Temperature Pulse Rate 77 Pulse Rate [ Apical] Pulse Rate [ From Monitor] Pulse Rate [ Left Radial] Pulse Rate [ Right Dorsalis Pedis] Pulse Rate [ Right Radial] Respiratory 20 Rate Blood Pressure 134/66 Blood Pressure [Right Arm] O2 Sat by Pulse 100 Oximetry 11/12/16 11/13/16 11/13/16 23:19 00:43 01:27 Temperature 97.8 F Pulse Rate 77 Pulse Rate [ 73 82 Apical] Pulse Rate [ 73 From Monitor] Pulse Rate [ 73 Left Radial] Pulse Rate [ 73 Right Dorsalis Pedis] Pulse Rate [ 73 Right Radial] Respiratory 18 20 20 Rate Blood Pressure Blood Pressure 138/70 [Right Arm] O2 Sat by Pulse 100 98 99 Oximetry 11/13/16 11/13/16 05:16 09:01 Temperature 97.8 F 97.8 F Pulse Rate Pulse Rate [ 78 Apical] Pulse Rate [ 78 From Monitor] Pulse Rate [ 78 Left Radial] Pulse Rate [ 78 Right Dorsalis Pedis] Pulse Rate [ 78 71 Right Radial] Respiratory 20 16 Rate Blood Pressure Blood Pressure 127/62 135/72 [Right Arm] O2 Sat by Pulse 93 97 Oximetry - Lab 11/13/16 04:47 11/13/16 04:47 Most recent lab results Calcium 7.1 mg/dL (8.4-10.2) L 11/13/16 04:47 Urine Creatinine 161.2 mg/dL (0.1-20.0) H 11/08/16 13:56 Urine Total Protein 146 mg/dL (5-11.8) H 11/08/16 13:56
--- NOTE | 2016-11-13 09:41 | Progress Note ---
Assessment and Plan - Patient Problems (1) Acute pulmonary edema Current Visit: Yes Status: Acute Plan to address problem: Improved with UF/HD Continue with supplemental oxygen to keep O2 sats>94% (2) Acute respiratory failure with hypoxia Current Visit: Yes Status: Acute Plan to address problem: Much improved with HD/UF Supplemental oxygen, to keep sats>94%. (3) NSTEMI (non-ST elevated myocardial infarction) Current Visit: Yes Status: Acute Plan to address problem: Per cardiology service Cardio-protective measures s/p cardiac catherterization this morning (4) CKD (chronic kidney disease) stage 4, GFR 15-29 ml/min Current Visit: Yes Status: Chronic Plan to address problem: Per renal service On HD (5) Thrombocytopenia Current Visit: Yes Status: Acute Plan to address problem: Monitor closely. Subjective Date of service: 11/13/16 Principal diagnosis: NSTEMI Interval history: Seen and examined. Vitals, labs, medications, chart reviewed. Much improved. Breathing well, feels great. Sleeping but rousable. s/p cardiac cath this morning Objective - Exam Narrative Exam: General appearance: well-developed, well-nourished, appears stated age, no distress EENT: PERRL, mucous membranes moist Neck: Present: neck supple, trachea midline. Absent: JVD/HJR, Masses Respiratory: Decreased Breath Sounds, scattered wheezes Heart: regular, normal heart rate, S1S2, no murmurs Gastrointestinal: Present: normoactive bowel sounds. Absent: tenderness Integumentary: no rash, warm and dry Neurologic: no focal deficit, alert and oriented x3, gait normal, strength 5/5 Musculoskeletal: Absent: deformities, joint swelling Psychiatric: mood/affect appropriate, cooperative Vital Signs - 12hr 11/12/16 11/12/16 11/12/16 22:00 22:08 22:09 Temperature Pulse Rate 77 Pulse Rate [ Apical] Pulse Rate [ From Monitor] Pulse Rate [ Left Radial] Pulse Rate [ Right Dorsalis Pedis] Pulse Rate [ Right Radial] Respiratory 20 Rate Blood Pressure 134/66 Blood Pressure [Right Arm] O2 Sat by Pulse 100 Oximetry 11/12/16 11/13/16 11/13/16 23:19 00:43 01:27 Temperature 97.8 F Pulse Rate 77 Pulse Rate [ 73 82 Apical] Pulse Rate [ 73 From Monitor] Pulse Rate [ 73 Left Radial] Pulse Rate [ 73 Right Dorsalis Pedis] Pulse Rate [ 73 Right Radial] Respiratory 18 20 20 Rate Blood Pressure Blood Pressure 138/70 [Right Arm] O2 Sat by Pulse 100 98 99 Oximetry 11/13/16 11/13/16 05:16 09:01 Temperature 97.8 F 97.8 F Pulse Rate Pulse Rate [ 78 Apical] Pulse Rate [ 78 From Monitor] Pulse Rate [ 78 Left Radial] Pulse Rate [ 78 Right Dorsalis Pedis] Pulse Rate [ 78 71 Right Radial] Respiratory 20 16 Rate Blood Pressure Blood Pressure 127/62 135/72 [Right Arm] O2 Sat by Pulse 93 97 Oximetry Constitutional: no acute distress Eyes: non-icteric ENT: oropharynx moist Neck: supple, no JVD Effort: normal Ascultation: Bilateral: diminished breath sounds, rales (basila) Cardiovascular: regular rate and rhythm Gastrointestinal: normoactive bowel sounds, soft, non-distended Integumentary: normal Extremities: no cyanosis, no edema, pink and warm, pulses normal, no ischemia or petechiae Neurologic: normal mental status, non-focal exam Psychiatric: mood appropriate, affect normal CBC and BMP: 11/13/16 04:47 11/13/16 04:47 ABG, PT/INR, D-dimer: ABG POC ABG pH 7.371 (7.35-7.45) 11/07/16 18:14 POC ABG pCO2 27.0 (35-45) L 11/07/16 18:14 POC ABG pO2 124 (80-105) H 11/07/16 18:14 POC ABG HCO3 15.6 11/07/16 18:14 POC ABG Total CO2 16 11/07/16 18:14 POC ABG O2 Sat 99 11/07/16 18:14 PT/INR, D-dimer PT 14.8 Sec. (12.2-14.9) 11/13/16 04:47 INR 1.10 (0.87-1.13) 11/13/16 04:47 D-Dimer 1575.53 ng/mlDDU (0-234) H 11/07/16 16:35 Abnormal lab findings: Abnormal Labs 11/07/16 11/08/16 11/08/16 21:43 06:45 06:45 RBC 2.37 L Hgb 7.6 L Hct 23.3 L D MCV 98 H Plt Count Lymph % (Auto) 8.0 L Lymph # 0.5 L Seg Neutrophils % 89.2 H Seg Neuts % (Manual) Lymphocytes % (Manual) Seg Neutrophils # Man Lymphocytes # (Manual) Percent Retic PT INR APTT Heparin Anti-Xa Level Sodium Potassium Chloride Carbon Dioxide 17 L BUN 52 H Creatinine 3.3 H Glucose 263 H POC Glucose Calcium TIBC AST 164 H Total Creatine Kinase 1584 H CK-MB (CK-2) 268.6 H CK-MB (CK-2) Rel Index 16.9 H C-Reactive Protein Total Protein 5.6 L Albumin 2.5 L Urine WBC (Auto) U Epithel Cells (Auto) Urine Creatinine Urine Total Protein 11/08/16 11/08/16 11/08/16 06:45 12:04 12:04 RBC Hgb 8.0 L Hct 23.7 L MCV Plt Count Lymph % (Auto) Lymph # Seg Neutrophils % Seg Neuts % (Manual) Lymphocytes % (Manual) Seg Neutrophils # Man Lymphocytes # (Manual) Percent Retic PT 16.5 H INR 1.34 H APTT 38.5 H Heparin Anti-Xa Level Sodium Potassium Chloride Carbon Dioxide BUN Creatinine Glucose POC Glucose Calcium TIBC AST Total Creatine Kinase 1273 H CK-MB (CK-2) 182.7 H CK-MB (CK-2) Rel Index 14.3 H C-Reactive Protein Total Protein Albumin Urine WBC (Auto) U Epithel Cells (Auto) Urine Creatinine Urine Total Protein 11/08/16 11/08/16 11/08/16 13:56 13:56 17:09 RBC Hgb Hct MCV Plt Count Lymph % (Auto) Lymph # Seg Neutrophils % Seg Neuts % (Manual) Lymphocytes % (Manual) Seg Neutrophils # Man Lymphocytes # (Manual) Percent Retic PT INR APTT Heparin Anti-Xa Level Sodium Potassium Chloride Carbon Dioxide BUN Creatinine Glucose POC Glucose Calcium TIBC AST Total Creatine Kinase 947 H CK-MB (CK-2) 91.7 H CK-MB (CK-2) Rel Index 9.6 H C-Reactive Protein Total Protein Albumin Urine WBC (Auto) 25.0 H U Epithel Cells (Auto) 20.0 H Urine Creatinine 161.2 H Urine Total Protein 146 H 11/08/16 11/09/16 11/09/16 17:09 03:19 07:04 RBC Hgb 8.6 L Hct 26.1 L MCV Plt Count Lymph % (Auto) Lymph # Seg Neutrophils % Seg Neuts % (Manual) Lymphocytes % (Manual) Seg Neutrophils # Man Lymphocytes # (Manual) Percent Retic PT INR APTT Heparin Anti-Xa Level Sodium 135 L Potassium 5.7 H D Chloride Carbon Dioxide 15 L BUN 70 H Creatinine 5.0 H D Glucose 169 H POC Glucose Calcium 7.9 L TIBC AST Total Creatine Kinase CK-MB (CK-2) CK-MB (CK-2) Rel Index C-Reactive Protein 5.80 H Total Protein Albumin Urine WBC (Auto) U Epithel Cells (Auto) Urine Creatinine Urine Total Protein 11/09/16 11/10/16 11/10/16 21:00 04:32 07:16 RBC Hgb 8.4 L Hct 25.6 L MCV Plt Count 111 L Lymph % (Auto) Lymph # Seg Neutrophils % Seg Neuts % (Manual) Lymphocytes % (Manual) Seg Neutrophils # Man Lymphocytes # (Manual) Percent Retic PT INR APTT Heparin Anti-Xa Level 0.91 H 0.12 L Sodium Potassium Chloride Carbon Dioxide BUN Creatinine Glucose POC Glucose Calcium TIBC AST Total Creatine Kinase CK-MB (CK-2) CK-MB (CK-2) Rel Index C-Reactive Protein Total Protein Albumin Urine WBC (Auto) U Epithel Cells (Auto) Urine Creatinine Urine Total Protein 11/10/16 11/10/16 11/10/16 10:05 18:10 19:09 RBC Hgb Hct MCV Plt Count Lymph % (Auto) Lymph # Seg Neutrophils % Seg Neuts % (Manual) Lymphocytes % (Manual) Seg Neutrophils # Man Lymphocytes # (Manual) Percent Retic 4.37 H PT INR APTT Heparin Anti-Xa Level Sodium Potassium Chloride 97.2 L Carbon Dioxide BUN 62 H Creatinine 4.4 H Glucose 206 H POC Glucose Calcium 7.0 L TIBC 237 L AST Total Creatine Kinase CK-MB (CK-2) CK-MB (CK-2) Rel Index C-Reactive Protein Total Protein Albumin Urine WBC (Auto) U Epithel Cells (Auto) Urine Creatinine Urine Total Protein 11/13/16 11/13/16 11/13/16 04:47 04:47 05:48 RBC 2.82 L Hgb 9.1 L Hct 27.8 L MCV 99 H Plt Count 89 L Lymph % (Auto) Lymph # Seg Neutrophils % Seg Neuts % (Manual) 92.0 H Lymphocytes % (Manual) 5.0 L Seg Neutrophils # Man 7.8 H Lymphocytes # (Manual) 0.4 L Percent Retic PT INR APTT Heparin Anti-Xa Level Sodium Potassium Chloride 96.8 L Carbon Dioxide BUN 60 H Creatinine 3.6 H Glucose 175 H POC Glucose 174 H Calcium 7.1 L TIBC AST Total Creatine Kinase CK-MB (CK-2) CK-MB (CK-2) Rel Index C-Reactive Protein Total Protein Albumin Urine WBC (Auto) U Epithel Cells (Auto) Urine Creatinine Urine Total Protein Allied health notes reviewed: RT
--- NOTE | 2016-11-13 09:59 | Progress Note ---
Assessment and Plan Renal failure initiated on dialysis this admission Pulmonary edema, elevated LVEDP measured at 44 mm Hg consistent with acute decompensated systolic heart failure Anemia + FOBT GI on board Thrombocytopenia with evidence of a dropping platelet count NSTEMI 80% proximal OM2, 60-70% mid LAD, severe diffuse disease of a small distal RCA with left to right collaterals Cardiomyopathy, LVEF 10-15% Moderate to severe mitral regurgitation Prior CVA Hypertension Plan: Continue medial therapy with aspirin, carvedilol, amlodipine Add lisinopril and Imdur Change simvastatin to atorvastatin 40 mg PCI not performed due to worsening thrombocytopenia and evidence of + FOBT with a dropping hemoglobin while on IV heparin Continue to monitor blood counts Continue PPI therapy Patient is high risk for any invasive procedure including EGD Further cardiac recommendations will depend on clinical course (discussed with daughter Blank) Will continue to follow Subjective Date of service: 11/13/16 Principal diagnosis: NSTEMI Interval history: Patient underwent a LHC today via femoral approach without complications Objective Vital Signs Temp Pulse Pulse Pulse Pulse Pulse Pulse 11/13/16 09:01 97.8 F 11/13/16 05:16 97.8 F 78 78 78 78 11/13/16 01:27 82 11/13/16 00:43 97.8 F 73 73 73 73 11/12/16 23:19 77 11/12/16 22:09 11/12/16 22:08 77 11/12/16 22:00 11/12/16 20:27 79 11/12/16 20:12 77 11/12/16 19:47 98.1 F 81 81 81 81 11/12/16 19:20 77 11/12/16 15:00 76 11/12/16 14:49 73 11/12/16 14:14 97.7 F 73 11/12/16 14:11 71 11/12/16 13:45 73 11/12/16 13:30 71 11/12/16 13:15 71 11/12/16 13:00 71 11/12/16 12:45 69 11/12/16 12:30 73 11/12/16 12:15 71 11/12/16 12:00 71 11/12/16 11:45 71 11/12/16 11:30 68 11/12/16 11:15 68 11/12/16 11:00 70 11/12/16 10:50 97.7 F 72 11/12/16 10:00 84 84 Pulse Resp Resp Resp BP BP Pulse Ox 11/13/16 09:01 71 16 135/72 97 11/13/16 05:16 78 20 127/62 93 11/13/16 01:27 20 99 11/13/16 00:43 73 20 138/70 98 11/12/16 23:19 18 100 11/12/16 22:09 20 11/12/16 22:08 134/66 11/12/16 22:00 100 11/12/16 20:27 18 11/12/16 20:12 18 11/12/16 19:47 81 20 134/66 97 11/12/16 19:20 20 11/12/16 15:00 18 11/12/16 14:49 18 11/12/16 14:14 16 125/80 11/12/16 14:11 125/80 11/12/16 13:45 125/80 11/12/16 13:30 127/72 11/12/16 13:15 124/78 11/12/16 13:00 124/78 11/12/16 12:45 127/71 11/12/16 12:30 128/74 11/12/16 12:15 115/69 11/12/16 12:00 121/73 11/12/16 11:45 120/65 11/12/16 11:30 117/62 11/12/16 11:15 119/70 11/12/16 11:00 118/71 11/12/16 10:50 16 120/69 11/12/16 10:00 20 20 98 - Physical Examination General: No Apparent Distress HEENT: Positive: PERRL Neck: Positive: trachea midline Cardiac: Positive: Reg Rate and Rhythm Lungs: Positive: Normal Exam Neuro: Positive: Grossly Intact Abdomen: Positive: Soft, Active Bowel Sounds Skin: Positive: Clear Extremities: Present: +1 Edema - Labs and Meds Coagulation 11/13/16 Range/Units 04:47 PT 14.8 (12.2-14.9) Sec. INR 1.10 (0.87-1.13) CBC 11/13/16 Range/Units 04:47 WBC 8.5 (4.5-11.0) K/mm3 RBC 2.82 L (3.65-5.03) M/mm3 Hgb 9.1 L (10.1-14.3) gm/dl Hct 27.8 L (30.3-42.9) % Plt Count 89 L (140-440) K/mm3 Comprehensive Metabolic Panel 11/13/16 Range/Units 04:47 Sodium 138 (137-145) mmol/L Potassium 4.4 (3.6-5.0) mmol/L Chloride 96.8 L (98-107) mmol/L Carbon Dioxide 25 (22-30) mmol/L BUN 60 H (7-17) mg/dL Creatinine 3.6 H (0.7-1.2) mg/dL Glucose 175 H (65-100) mg/dL Calcium 7.1 L (8.4-10.2) mg/dL - Imaging and Cardiology EKG: report reviewed (Sinus Tach pvc's LVH 119/min Repolarization abnormalities) - Allied health notes Allied health notes reviewed: RT
[2016-11-13] MEDS: DUONEB *Not for PRN Use IH SCH ×3 (11:45→21:11)
--- NOTE | 2016-11-13 12:03 | Gastroenterology Progress Note ---
Assessment and Plan - Patient Problems (1) Anemia Current Visit: Yes Status: Acute Qualifiers: Anemia type: A Iron deficiency anemia type: I Vitamin B12 deficiency anemia type: V Folate deficiency anemia type: F Bone marrow failure anemia type: B Hemolytic anemia type: H Other causes of anemia: O Chronic kidney disease stage: C Plan to address problem: Stable. No signs of overt bleeding. No indication for endoscopy unless UGI tract needs clearance for anticoagulation (2) CKD (chronic kidney disease) stage 4, GFR 15-29 ml/min Current Visit: Yes Status: Chronic Subjective Date of service: 11/13/16 Principal diagnosis: anemia Interval history: The patient denies any discomfort. Objective - Constitutional Vitals: Temp Pulse Resp BP Pulse Ox 97.9 F 72 16 128/81 97 11/13/16 11:46 11/13/16 11:46 11/13/16 11:46 11/13/16 11:46 11/13/16 11:46 General appearance: no acute distress - Neck Neck: supple, normal ROM - Respiratory Respiratory effort: normal Respiratory: bilateral: CTA - Cardiovascular Rhythm: regular - Extremities Extremity abnormal: other (Dry dressing in ) - Gastrointestinal General gastrointestinal: Present: soft, non-tender, non-distended, normal bowel sounds - Neurologic Neurological: alert and oriented x3 - Labs CBC & Chem 7: 11/13/16 04:47 11/13/16 04:47 Labs: Laboratory Results - last 24 hr 11/13/16 11/13/16 11/13/16 04:47 04:47 04:47 WBC 8.5 RBC 2.82 L Hgb 9.1 L Hct 27.8 L MCV 99 H MCH 32 MCHC 33 RDW 14.7 Plt Count 89 L Add Manual Diff Complete Total Counted 100 Seg Neutrophils % Marine Consultant Seg Neuts % (Manual) 92.0 H Band Neutrophils % 0 Lymphocytes % (Manual) 5.0 L Reactive Lymphs % (Man) 0 Monocytes % (Manual) 3.0 Eosinophils % (Manual) 0 Basophils % (Manual) 0 Metamyelocytes % 0 Myelocytes % 0 Promyelocytes % 0 Blast Cells % 0 Nucleated RBC % Not Reportable Seg Neutrophils # Man 7.8 H Band Neutrophils # 0.0 Lymphocytes # (Manual) 0.4 L Abs React Lymphs (Man) 0.0 Monocytes # (Manual) 0.3 Eosinophils # (Manual) 0.0 Basophils # (Manual) 0.0 Metamyelocytes # 0.0 Myelocytes # 0.0 Promyelocytes # 0.0 Blast Cells # 0.0 WBC Morphology Not Reportable Hypersegmented Neuts Not Reportable Hyposegmented Neuts Not Reportable Hypogranular Neuts Not Reportable Smudge Cells Not Reportable Toxic Granulation Not Reportable Toxic Vacuolation Not Reportable Dohle Bodies Not Reportable Pelger-Huet Anomaly Not Reportable Tamanna Rods Not Reportable Platelet Estimate Consistent w auto Clumped Platelets Not Reportable Plt Clumps, EDTA Not Reportable Large Platelets Not Reportable Giant Platelets Not Reportable Platelet Satelliting Not Reportable Plt Morphology Comment Not Reportable RBC Morphology Not Reportable Dimorphic RBCs Not Reportable Polychromasia Rare Hypochromasia Not Reportable Poikilocytosis Not Reportable Anisocytosis 1+ Microcytosis Not Reportable Macrocytosis Not Reportable Spherocytes Not Reportable Pappenheimer Bodies Not Reportable Sickle Cells Not Reportable Target Cells Not Reportable Tear Drop Cells Not Reportable Ovalocytes Not Reportable Helmet Cells Not Reportable Ramos-[place] Bodies Not Reportable Solomon Rings Not Reportable Renny Cells Not Reportable Bite Cells Not Reportable Crenated Cell Not Reportable Elliptocytes Not Reportable Acanthocytes (Spur) Not Reportable Rouleaux Not Reportable Hemoglobin C Crystals Not Reportable Schistocytes Not Reportable Malaria parasites Not Reportable Javi Bodies Not Reportable Hem Pathologist Commnt No PT 14.8 INR 1.10 Sodium 138 Potassium 4.4 Chloride 96.8 L Carbon Dioxide 25 Anion Gap 21 BUN 60 H Creatinine 3.6 H Estimated GFR 15 BUN/Creatinine Ratio 16.66 Glucose 175 H POC Glucose Calcium 7.1 L 11/13/16 05:48 WBC RBC Hgb Hct MCV MCH MCHC RDW Plt Count Add Manual Diff Total Counted Seg Neutrophils % Seg Neuts % (Manual) Band Neutrophils % Lymphocytes % (Manual) Reactive Lymphs % (Man) Monocytes % (Manual) Eosinophils % (Manual) Basophils % (Manual) Metamyelocytes % Myelocytes % Promyelocytes % Blast Cells % Nucleated RBC % Seg Neutrophils # Man Band Neutrophils # Lymphocytes # (Manual) Abs React Lymphs (Man) Monocytes # (Manual) Eosinophils # (Manual) Basophils # (Manual) Metamyelocytes # Myelocytes # Promyelocytes # Blast Cells # WBC Morphology Hypersegmented Neuts Hyposegmented Neuts Hypogranular Neuts Smudge Cells Toxic Granulation Toxic Vacuolation Dohle Bodies Pelger-Huet Anomaly Tamanna Rods Platelet Estimate Clumped Platelets Plt Clumps, EDTA Large Platelets Giant Platelets Platelet Satelliting Plt Morphology Comment RBC Morphology Dimorphic RBCs Polychromasia Hypochromasia Poikilocytosis Anisocytosis Microcytosis Macrocytosis Spherocytes Pappenheimer Bodies Sickle Cells Target Cells Tear Drop Cells Ovalocytes Helmet Cells Ramos-[place] Bodies Solomon Rings Alpine Cells Bite Cells Crenated Cell Elliptocytes Acanthocytes (Spur) Rouleaux Hemoglobin C Crystals Schistocytes Malaria parasites Javi Bodies Hem Pathologist Commnt PT INR Sodium Potassium Chloride Carbon Dioxide Anion Gap BUN Creatinine Estimated GFR BUN/Creatinine Ratio Glucose POC Glucose 174 H Calcium
[2016-11-13] MEDS: OYSCO D 500 MG-200 UNIT PO SCH (15:30)
[2016-11-13] MEDS: APRESOLINE PO SCH ×3 (15:30→21:41)
[2016-11-13] MEDS: COREG PO SCH ×2 (15:30→21:45)
[2016-11-13] MEDS: NAMENDA XR PO SCH (15:31)
[2016-11-13] MEDS: PROTONIX PO SCH (15:31)
[2016-11-13] MEDS: NORVASC PO SCH (15:31)
[2016-11-13] MEDS: BABY ASPIRIN PO SCH (15:39)
[2016-11-13] MEDS: IMDUR PO SCH (15:40)
[2016-11-13] MEDS: ZESTRIL PO SCH (15:40)
--- NOTE | 2016-11-13 15:43 | Cardiac Catherization Report ---
LEFT HEART CATHETERIZATION INDICATION FOR PROCEDURE: Non-ST elevation myocardial infarction. ORDERING PHYSICIAN: Ariela Shane MD PROCEDURE PERFORMED: Selective left and right coronary angiography. DESCRIPTION OF PROCEDURE: After obtaining written consent, the patient was draped using sterile technique. A 2% lidocaine was injected into the right groin. A 5-Lebanese vascular sheath was inserted into the right common femoral artery. A 5-Lebanese JR4 catheter was used to selectively engage the left coronary artery. A 5-Lebanese JR4 catheter was used to selectively engage the right coronary artery. A left ventriculogram was not performed due to the patient's underlying acute renal failure. No complications occurred during the procedure. Hemostasis was achieved at the end of the procedure using manual pressure. SPECIMEN REMOVED: None. ESTIMATED BLOOD LOSS: Minimal. FINDINGS: HEMODYNAMICS: The aortic pressure is 134/76, left ventricular systolic pressure is 135 mmHg. The left ventricular end-diastolic pressure was 44 mmHg. CARDIAC STRUCTURES: Left ventriculogram was not performed due to the patient's underlying acute renal failure. CORONARY ANATOMY: 1. This is a right dominant circulation. 2. The left main is angiographically normal. 3. The left anterior descending artery has evidence of a focal 60-70% stenosis in the mid segment and otherwise diffuse nonobstructive luminal irregularities. 4. The left circumflex artery has evidence of a focal 80% stenosis in the proximal segment of a large second obtuse marginal. The first obtuse marginal is severely diffusely diseased and very small caliber vessel. 5. The right coronary artery is a dominant vessel. There is evidence of severe diffuse disease extending from the mid into the distal segment of the right coronary artery. Both the PLVB and the PDA are very small in caliber. There is evidence of left to right collateral supplying the distal right coronary artery. IMPRESSION: 1. Significant 2 vessel disease with an 80% stenosis of the proximal segment of the second obtuse marginal and 60-70% stenosis of the mid LAD. 2. Severe diffuse disease of the distal right coronary artery with left to right collaterals supplying the distal right coronary artery. 3. The left ventriculogram was not performed due to the patient's underlying acute renal failure. 4. LVEDP measured at 44 mmHg. RECOMMENDATIONS: Given the patient's anemia, positive fecal occult blood testing, worsening thrombocytopenia we decided not to proceed with percutaneous coronary intervention. Further therapy will depend on clinical course. The patient is high risk for any kind of invasive procedures including EGD. JOB# [id number] MONTRELL/SUZETTE
[2016-11-14] MEDS: AMBIEN PO PRN (01:28)
[2016-11-14] MEDS: APRESOLINE PO SCH ×3 (08:41→21:30)
--- NOTE | 2016-11-14 08:45 | Progress Note ---
Assessment and Plan - Patient Problems (1) Acute kidney injury superimposed on CKD Current Visit: Yes Status: Acute Plan to address problem: started on HD. pt is non-oliguric, will monitor I/Os, lytes/renal parameters and assess need for HD on daily basis. Hyperkalemia and acidosis improved on HD. Avoid nephrotoxics Will resume lasix 40mg IV daily for additional volume control D/w RN, pt, and family at bedside (2) Acute on chronic systolic (congestive) heart failure Current Visit: Yes Status: Acute Plan to address problem: Strict I/Os 2D echo report reviewed. It showed EF of 10-15 % will given trial of lasix 40mg IV daily. if no significant diuretic effect seen will resume HD/UF (3) NSTEMI (non-ST elevated myocardial infarction) Current Visit: Yes Status: Acute Plan to address problem: Management per Cardio (4) Acute respiratory failure with hypoxia Current Visit: Yes Status: Acute Plan to address problem: Antibiotics BiPAP support as needed IV diuretics as mentioned above (5) HTN (hypertension) Current Visit: Yes Status: Chronic Qualifiers: Hypertension type: essential hypertension Qualified Code(s): I10 - Essential (primary) hypertension Plan to address problem: monitor BP on current meds (6) Metabolic acidosis Current Visit: Yes Status: Acute Plan to address problem: improved on HD Subjective Date of service: 11/14/16 Principal diagnosis: NSTEMI Interval history: Pt awake, alert, in no acute respiratory distress. Objective - Vital Signs Vital signs: Vital Signs - 12hr 11/13/16 11/13/16 11/13/16 21:12 21:16 21:32 Temperature Pulse Rate Pulse Rate [ 72 74 Anterior Bilateral Throughout] Pulse Rate [ Left] Respiratory Rate Respiratory 13 12 Rate [Anterior Bilateral Throughout] Respiratory Rate [denies pain] Blood Pressure Blood Pressure [Left Arm] O2 Sat by Pulse 98 Oximetry 11/13/16 11/13/16 11/13/16 21:41 21:42 21:45 Temperature Pulse Rate 84 84 Pulse Rate [ Anterior Bilateral Throughout] Pulse Rate [ Left] Respiratory 18 Rate Respiratory Rate [Anterior Bilateral Throughout] Respiratory Rate [denies pain] Blood Pressure 134/75 134/75 Blood Pressure [Left Arm] O2 Sat by Pulse Oximetry 11/14/16 11/14/16 11/14/16 00:13 04:46 05:55 Temperature 98.4 F 98.4 F Pulse Rate 84 Pulse Rate [ Anterior Bilateral Throughout] Pulse Rate [ 80 92 H Left] Respiratory 20 20 Rate Respiratory Rate [Anterior Bilateral Throughout] Respiratory 20 Rate [denies pain] Blood Pressure Blood Pressure 127/68 154/83 [Left Arm] O2 Sat by Pulse 99 100 Oximetry 11/14/16 07:05 Temperature 98.2 F Pulse Rate Pulse Rate [ Anterior Bilateral Throughout] Pulse Rate [ 73 Left] Respiratory 18 Rate Respiratory Rate [Anterior Bilateral Throughout] Respiratory Rate [denies pain] Blood Pressure Blood Pressure 140/70 [Left Arm] O2 Sat by Pulse 98 Oximetry - General Appearance General appearance: well-nourished, appears stated age EENT: ATNC, PERRL, mucous membranes moist Neck: no JVD Respiratory: Present: Clear to Ascultation Cardiology: regular, S1S2 Gastrointestinal: normoactive bowel sounds Integumentary: no rash, other (no edema ) Neurologic: no focal deficit, alert and oriented x3, strength 5/5, CN 3-12 intact Psychiatric: mood/affect appropriate, cooperative - Lab 11/13/16 04:47 11/13/16 04:47 Most recent lab results Calcium 7.1 mg/dL (8.4-10.2) L 11/13/16 04:47 Urine Creatinine 161.2 mg/dL (0.1-20.0) H 11/08/16 13:56 Urine Total Protein 146 mg/dL (5-11.8) H 11/08/16 13:56
[2016-11-14] MEDS: DUONEB *Not for PRN Use IH SCH ×3 (09:32→19:40)
--- NOTE | 2016-11-14 09:48 | Progress Note ---
Assessment and Plan - Patient Problems (1) Acute pulmonary edema Current Visit: Yes Status: Acute Plan to address problem: Improved with UF/HD Continue with supplemental oxygen to keep O2 sats>94% (2) Acute respiratory failure with hypoxia Current Visit: Yes Status: Acute Plan to address problem: Much improved with HD/UF Supplemental oxygen, to keep sats>94%. (3) NSTEMI (non-ST elevated myocardial infarction) Current Visit: Yes Status: Acute Plan to address problem: Per cardiology service Cardio-protective measures s/p cardiac catherterization (4) CKD (chronic kidney disease) stage 4, GFR 15-29 ml/min Current Visit: Yes Status: Chronic Plan to address problem: Per renal service (5) Thrombocytopenia Current Visit: Yes Status: Acute Plan to address problem: Monitor closely. Subjective Date of service: 11/07/16 Principal diagnosis: NSTEMI Interval history: Seen and examined. Vitals, labs, medications, chart reviewed. Much improved. Breathing well, feels great. Sleeping but rousable. s/p cardiac cath Objective - Exam Narrative Exam: GEN: WDWN, NAD, AWAKE, ALERT, ORIENTATED x 2 CVS: RRR, NORMAL S1S2 LUNGS/CHEST: Basilar crackles NORMAL CHEST EXPANSION B, GOOD AIR ENTRY B ABD: SOFT, NTND, GBS, NO REBOUND OR GUARDING EXT/SKIN: Bilateral leg edema resolving MSK: FROM X 4 EXTREMITIES NEURO: CN 2-12 GROSSLY INTACT, NO NEW FOCAL DEFICITS PSY: CALM Vital Signs - 12hr 11/14/16 11/14/16 11/14/16 00:13 04:46 05:55 Temperature 98.4 F 98.4 F Pulse Rate 84 Pulse Rate [ Anterior Bilateral Throughout] Pulse Rate [ 80 92 H Left] Respiratory 20 20 Rate Respiratory Rate [Anterior Bilateral Throughout] Respiratory 20 Rate [denies pain] Blood Pressure 127/68 154/83 [Left Arm] O2 Sat by Pulse 99 100 Oximetry 11/14/16 11/14/16 11/14/16 07:05 09:33 09:35 Temperature 98.2 F Pulse Rate Pulse Rate [ 94 H Anterior Bilateral Throughout] Pulse Rate [ 73 Left] Respiratory 18 Rate Respiratory 18 Rate [Anterior Bilateral Throughout] Respiratory Rate [denies pain] Blood Pressure 140/70 [Left Arm] O2 Sat by Pulse 98 100 Oximetry Constitutional: no acute distress Eyes: non-icteric ENT: oropharynx moist Neck: supple, no JVD Effort: normal Ascultation: Bilateral: diminished breath sounds, rales (basila) Cardiovascular: regular rate and rhythm Gastrointestinal: normoactive bowel sounds, soft, non-distended Integumentary: normal Extremities: no cyanosis, no edema, pink and warm, pulses normal, no ischemia or petechiae Neurologic: normal mental status, non-focal exam, CN II-XII normal Psychiatric: mood appropriate, affect normal CBC and BMP: 11/13/16 04:47 11/14/16 08:49 ABG, PT/INR, D-dimer: ABG POC ABG pH 7.371 (7.35-7.45) 11/07/16 18:14 POC ABG pCO2 27.0 (35-45) L 11/07/16 18:14 POC ABG pO2 124 (80-105) H 11/07/16 18:14 POC ABG HCO3 15.6 11/07/16 18:14 POC ABG Total CO2 16 11/07/16 18:14 POC ABG O2 Sat 99 11/07/16 18:14 PT/INR, D-dimer PT 14.8 Sec. (12.2-14.9) 11/13/16 04:47 INR 1.10 (0.87-1.13) 11/13/16 04:47 D-Dimer 1575.53 ng/mlDDU (0-234) H 11/07/16 16:35 Abnormal lab findings: Abnormal Labs 11/07/16 11/08/16 11/08/16 21:43 06:45 06:45 RBC 2.37 L Hgb 7.6 L Hct 23.3 L D MCV 98 H Plt Count Lymph % (Auto) 8.0 L Lymph # 0.5 L Seg Neutrophils % 89.2 H Seg Neuts % (Manual) Lymphocytes % (Manual) Seg Neutrophils # Man Lymphocytes # (Manual) Percent Retic PT INR APTT Heparin Anti-Xa Level Sodium Potassium Chloride Carbon Dioxide 17 L BUN 52 H Creatinine 3.3 H Glucose 263 H POC Glucose Calcium TIBC AST 164 H Total Creatine Kinase 1584 H CK-MB (CK-2) 268.6 H CK-MB (CK-2) Rel Index 16.9 H C-Reactive Protein Total Protein 5.6 L Albumin 2.5 L Urine WBC (Auto) U Epithel Cells (Auto) Urine Creatinine Urine Total Protein 11/08/16 11/08/16 11/08/16 06:45 12:04 12:04 RBC Hgb 8.0 L Hct 23.7 L MCV Plt Count Lymph % (Auto) Lymph # Seg Neutrophils % Seg Neuts % (Manual) Lymphocytes % (Manual) Seg Neutrophils # Man Lymphocytes # (Manual) Percent Retic PT 16.5 H INR 1.34 H APTT 38.5 H Heparin Anti-Xa Level Sodium Potassium Chloride Carbon Dioxide BUN Creatinine Glucose POC Glucose Calcium TIBC AST Total Creatine Kinase 1273 H CK-MB (CK-2) 182.7 H CK-MB (CK-2) Rel Index 14.3 H C-Reactive Protein Total Protein Albumin Urine WBC (Auto) U Epithel Cells (Auto) Urine Creatinine Urine Total Protein 11/08/16 11/08/16 11/08/16 13:56 13:56 17:09 RBC Hgb Hct MCV Plt Count Lymph % (Auto) Lymph # Seg Neutrophils % Seg Neuts % (Manual) Lymphocytes % (Manual) Seg Neutrophils # Man Lymphocytes # (Manual) Percent Retic PT INR APTT Heparin Anti-Xa Level Sodium Potassium Chloride Carbon Dioxide BUN Creatinine Glucose POC Glucose Calcium TIBC AST Total Creatine Kinase 947 H CK-MB (CK-2) 91.7 H CK-MB (CK-2) Rel Index 9.6 H C-Reactive Protein Total Protein Albumin Urine WBC (Auto) 25.0 H U Epithel Cells (Auto) 20.0 H Urine Creatinine 161.2 H Urine Total Protein 146 H 11/08/16 11/09/16 11/09/16 17:09 03:19 07:04 RBC Hgb 8.6 L Hct 26.1 L MCV Plt Count Lymph % (Auto) Lymph # Seg Neutrophils % Seg Neuts % (Manual) Lymphocytes % (Manual) Seg Neutrophils # Man Lymphocytes # (Manual) Percent Retic PT INR APTT Heparin Anti-Xa Level Sodium 135 L Potassium 5.7 H D Chloride Carbon Dioxide 15 L BUN 70 H Creatinine 5.0 H D Glucose 169 H POC Glucose Calcium 7.9 L TIBC AST Total Creatine Kinase CK-MB (CK-2) CK-MB (CK-2) Rel Index C-Reactive Protein 5.80 H Total Protein Albumin Urine WBC (Auto) U Epithel Cells (Auto) Urine Creatinine Urine Total Protein 11/09/16 11/10/16 11/10/16 21:00 04:32 07:16 RBC Hgb 8.4 L Hct 25.6 L MCV Plt Count 111 L Lymph % (Auto) Lymph # Seg Neutrophils % Seg Neuts % (Manual) Lymphocytes % (Manual) Seg Neutrophils # Man Lymphocytes # (Manual) Percent Retic PT INR APTT Heparin Anti-Xa Level 0.91 H 0.12 L Sodium Potassium Chloride Carbon Dioxide BUN Creatinine Glucose POC Glucose Calcium TIBC AST Total Creatine Kinase CK-MB (CK-2) CK-MB (CK-2) Rel Index C-Reactive Protein Total Protein Albumin Urine WBC (Auto) U Epithel Cells (Auto) Urine Creatinine Urine Total Protein 11/10/16 11/10/16 11/10/16 10:05 18:10 19:09 RBC Hgb Hct MCV Plt Count Lymph % (Auto) Lymph # Seg Neutrophils % Seg Neuts % (Manual) Lymphocytes % (Manual) Seg Neutrophils # Man Lymphocytes # (Manual) Percent Retic 4.37 H PT INR APTT Heparin Anti-Xa Level Sodium Potassium Chloride 97.2 L Carbon Dioxide BUN 62 H Creatinine 4.4 H Glucose 206 H POC Glucose Calcium 7.0 L TIBC 237 L AST Total Creatine Kinase CK-MB (CK-2) CK-MB (CK-2) Rel Index C-Reactive Protein Total Protein Albumin Urine WBC (Auto) U Epithel Cells (Auto) Urine Creatinine Urine Total Protein 11/13/16 11/13/16 11/13/16 04:47 04:47 05:48 RBC 2.82 L Hgb 9.1 L Hct 27.8 L MCV 99 H Plt Count 89 L Lymph % (Auto) Lymph # Seg Neutrophils % Seg Neuts % (Manual) 92.0 H Lymphocytes % (Manual) 5.0 L Seg Neutrophils # Man 7.8 H Lymphocytes # (Manual) 0.4 L Percent Retic PT INR APTT Heparin Anti-Xa Level Sodium Potassium Chloride 96.8 L Carbon Dioxide BUN 60 H Creatinine 3.6 H Glucose 175 H POC Glucose 174 H Calcium 7.1 L TIBC AST Total Creatine Kinase CK-MB (CK-2) CK-MB (CK-2) Rel Index C-Reactive Protein Total Protein Albumin Urine WBC (Auto) U Epithel Cells (Auto) Urine Creatinine Urine Total Protein Allied health notes reviewed: RT
[2016-11-14] MEDS ORDERED: LASIX IV SCH (10:00)
--- NOTE | 2016-11-14 10:02 | Progress Note ---
Assessment and Plan - Patient Problems (1) NSTEMI (non-ST elevated myocardial infarction) Current Visit: Yes Status: Acute Plan to address problem: I had an extensive discussion this morning with the patient, her daughter and son-in-law. She has stentable lesions in the mid LAD and mid circumflex, but risk of interventional therapy is high with the underlying severe cardiomyopathy and the need for aggressive anticoagulation during the procedure , and aggressive postprocedure antiplatelet therapy. With her underlying anemia and possible GI bleed, and to coagulation and antiplatelet therapy will be potentially hazardous. An additional point is that benefits of coronary intervention are reduced in the presence of an already severe cardiomyopathy. I recommend upper GI endoscopy, following which if passenger service agent determines that anticoagulation and antiplatelet therapy can be given with acceptable risks, then we will proceed cautiously with coronary intervention and stent implantation with bare metal stents. If the risk of anticoagulation is unacceptable, then patient will be recommended for medical therapy and conservative management. (2) Proptosis Current Visit: Yes Status: Acute Subjective Date of service: 11/14/16 Principal diagnosis: NSTEMI Interval history: Patient looks and feels comfortable in no acute distress. I had an extensive discussion this morning with the patient, her daughter and son-in-law. She has stentable lesions in the mid LAD and mid circumflex, but risk of interventional therapy is high with the underlying severe cardiomyopathy and the need for aggressive anticoagulation during the procedure , and aggressive postprocedure antiplatelet therapy. With her underlying anemia and possible GI bleed, and to coagulation and antiplatelet therapy will be potentially hazardous. An additional point is that benefits of coronary intervention are reduced in the presence of an already severe cardiomyopathy. I recommend upper GI endoscopy, following which if passenger service agent determines that anticoagulation and antiplatelet therapy can be given with acceptable risks, then we will proceed cautiously with coronary intervention and stent implantation with bare metal stents. If the risk of anticoagulation is unacceptable, then patient will be recommended for medical therapy and conservative management. Objective Vital Signs Temp Pulse Pulse Pulse Resp Resp Resp 11/14/16 09:47 79 11/14/16 09:35 11/14/16 09:33 94 H 18 11/14/16 07:05 98.2 F 73 11/14/16 05:55 84 11/14/16 04:46 98.4 F 92 H 11/14/16 00:13 98.4 F 80 11/13/16 21:45 84 11/13/16 21:42 18 11/13/16 21:41 84 11/13/16 21:32 74 12 11/13/16 21:16 11/13/16 21:12 72 13 11/13/16 19:50 97.5 F L 84 20 11/13/16 19:25 98.4 F 84 20 11/13/16 18:34 64 11/13/16 17:00 76 11/13/16 16:00 68 11/13/16 15:30 69 11/13/16 15:00 70 11/13/16 14:41 98.0 F 67 16 11/13/16 14:39 98.0 F 67 16 11/13/16 14:30 67 11/13/16 14:00 63 11/13/16 13:32 69 11/13/16 13:30 64 11/13/16 13:00 70 11/13/16 12:45 69 11/13/16 12:30 69 11/13/16 12:15 69 11/13/16 12:00 71 11/13/16 11:46 97.9 F 72 16 11/13/16 11:45 70 11/13/16 11:30 72 11/13/16 11:15 71 11/13/16 11:00 72 11/13/16 10:45 71 11/13/16 10:30 67 11/13/16 10:15 66 11/13/16 10:00 BP BP Pulse Ox 11/14/16 09:47 11/14/16 09:35 100 11/14/16 09:33 11/14/16 07:05 140/70 98 11/14/16 05:55 11/14/16 04:46 154/83 100 11/14/16 00:13 127/68 99 11/13/16 21:45 134/75 11/13/16 21:42 11/13/16 21:41 134/75 11/13/16 21:32 11/13/16 21:16 98 11/13/16 21:12 11/13/16 19:50 134/75 95 11/13/16 19:25 100 11/13/16 18:34 121/81 11/13/16 17:00 135/88 11/13/16 16:00 142/84 11/13/16 15:30 141/82 11/13/16 15:00 135/87 11/13/16 14:41 120/74 98 11/13/16 14:39 120/74 98 11/13/16 14:30 120/74 11/13/16 14:00 136/82 11/13/16 13:32 11/13/16 13:30 132/91 11/13/16 13:00 128/76 11/13/16 12:45 128/79 11/13/16 12:30 141/79 11/13/16 12:15 138/82 11/13/16 12:00 135/86 11/13/16 11:46 128/81 97 11/13/16 11:45 128/80 11/13/16 11:30 128/84 11/13/16 11:15 126/77 11/13/16 11:00 128/81 11/13/16 10:45 139/86 11/13/16 10:30 126/85 11/13/16 10:15 122/81 11/13/16 10:00 97 - Physical Examination General: No Apparent Distress HEENT: Positive: PERRL Neck: Positive: trachea midline Cardiac: Positive: Reg Rate and Rhythm Lungs: Positive: Decreased Breath Sounds Neuro: Positive: Grossly Intact Abdomen: Positive: Soft, Active Bowel Sounds Skin: Positive: Clear Extremities: Present: +1 Edema - Imaging and Cardiology EKG: report reviewed (Sinus Tach pvc's LVH 119/min Repolarization abnormalities) - Allied health notes Allied health notes reviewed: RT
[2016-11-14 10:20] LABS: BUN/Creatinine Ratio 20.44; Calcium 7.2 mg/dL (8.4-10.2); Chloride 94.4 mmol/L (98-107); Potassium 3.9 mmol/L (3.6-5.0)
[2016-11-14] MEDS: NAMENDA XR PO SCH (10:40)
[2016-11-14] MEDS: NORVASC PO SCH (10:40)
[2016-11-14] MEDS: OYSCO D 500 MG-200 UNIT PO SCH (10:40)
[2016-11-14] MEDS: COREG PO SCH ×2 (10:40→21:28)
[2016-11-14] MEDS: ZESTRIL PO SCH (10:41)
[2016-11-14] MEDS: BABY ASPIRIN PO SCH (10:41)
[2016-11-14] MEDS: PROTONIX PO SCH (10:41)
[2016-11-14] MEDS: IMDUR PO SCH (10:42)
[2016-11-14] MEDS: PRIMACOR 20 MG in D5W 80 ML IV SCH ×2 (11:55→20:05)
--- NOTE | 2016-11-14 13:22 | Progress Note ---
Assessment and Plan Assessment and plan: Patient is a 70-year-old woman with a history of hypertension, type 2 diabetes mellitus, CVA, advanced dementia and osteoporosis who presented with nausea, vomiting, diarrhea and shortness of breath. Portable chest x-ray reported as cardiomegaly, may be exacerbated by diminished lung volumes, subtle asymmetric increased opacity in the right upper lobe, this could be secondary to overlapping osseous structures, but underlying infiltrate or pulmonary lesion is not excluded, this can be further assessed CT of the chest. VQ scan read as limited study, very low probability of Pulmonary embolism. Bilateral renal ultrasound read as renal parenchymal disease, stable left renal cyst, small left pleural effusion. -Non-STEMI: Patient has received 48 hours of IV heparin, stopped heparin with drop hct d/w Dr. Shane, I added Aspirin to Coreg and Zocor -Pulmonary edema due to acute systolic heart failure: Continue diuresis -Acute renal failure/CK D3: Now on hemodialysis, nephrology following, -Acute hypoxic respiratory failure: Continue O2 therapy -Acute on chronic anemia with dropping hematocrit: Stopped heparin, checked fecal occult blood, iron studies==>positive FOBT, consulted GI, she had fairly recent c-scopy, possible EGD but will need Cardiology clearance if EGD needed. -DVT prophylaxis: SCDs only due to drop in hemoglobin Full code 11/12/16 Echo still pending, [facility] per nephrology Disposition: Awaiting home hemodialysis set up, chair time/schedule 11/13/16: Transthoracic echocardiogram report by Dr. Shane read as left ventricular chamber size severely dilated, global left systolic function is severely decreased, estimated ejection fraction is 10-15%, mild concentric left ventricular hypertrophy, left atrium is severely dilated, moderate to severe MR , mild to moderate TR, evidence of mild pulmonary hypertension, trivial pericardial effusion, catheters visualizing right atrium. Patient going for cardiac catheterization 11/14/16: D/W scuba dive training instructor, Dr. Shane. Patient does need Cardiac revascularization but high risk for GI bleeding. GI wants to do EGD to clear for anticoagulation/platelets/aspirin however she is high risk for the procedure /EGD due to EF 10% and non-STEMI. Dr. Shane will clear for EGD. I discuss hospice with daughter and her . They would like to wait at this particular time, continue full code. History Interval history: Patient seen and examined. Follow up on renal failure. Overnight uneventful. No cp, sob, n/v or severe headaches. Imaging, old records, testing, labs, nursing notes reviewed. Daughter Noreen at bedside Hospitalist Physical - Physical exam Narrative exam: GEN: WDWN, NAD, AWAKE, ALERT, ORIENTATED x 2 CVS: RRR, NORMAL S1S2 LUNGS/CHEST: Basilar crackles NORMAL CHEST EXPANSION B, GOOD AIR ENTRY B ABD: SOFT, NTND, GBS, NO REBOUND OR GUARDING EXT/SKIN: Bilateral leg edema resolving MSK: FROM X 4 EXTREMITIES NEURO: CN 2-12 GROSSLY INTACT, NO NEW FOCAL DEFICITS PSY: CALM - Constitutional Vitals: Temp Pulse Resp BP Pulse Ox 98.3 F 77 16 143/67 100 11/14/16 11:10 11/14/16 11:10 11/14/16 11:10 11/14/16 11:10 11/14/16 09:35 General appearance: Present: no acute distress, well-nourished Results - Labs CBC & Chem 7: 11/13/16 04:47 11/14/16 08:49 Labs: Laboratory Last Values WBC 8.5 K/mm3 (4.5-11.0) 11/13/16 04:47 RBC 2.82 M/mm3 (3.65-5.03) L 11/13/16 04:47 Hgb 9.1 gm/dl (10.1-14.3) L 11/13/16 04:47 Hct 27.8 % (30.3-42.9) L 11/13/16 04:47 MCV 99 fl (79-97) H 11/13/16 04:47 MCH 32 pg (28-32) 11/13/16 04:47 MCHC 33 % (30-34) 11/13/16 04:47 RDW 14.7 % (13.2-15.2) 11/13/16 04:47 Plt Count 89 K/mm3 (140-440) L 11/13/16 04:47 Lymph % (Auto) 8.0 % (13.4-35.0) L 11/08/16 06:45 Barry % (Auto) 2.7 % (0.0-7.3) 11/08/16 06:45 Eos % (Auto) 0.0 % (0.0-4.3) 11/08/16 06:45 Baso % (Auto) 0.1 % (0.0-1.8) 11/08/16 06:45 Lymph # 0.5 K/mm3 (1.2-5.4) L 11/08/16 06:45 Barry # 0.1 K/mm3 (0.0-0.8) 11/08/16 06:45 Eos # 0.0 K/mm3 (0.0-0.4) 11/08/16 06:45 Baso # 0.0 K/mm3 (0.0-0.1) 11/08/16 06:45 Add Manual Diff Complete 11/13/16 04:47 Total Counted 100 11/13/16 04:47 Seg Neutrophils % Landing Signal Officer 11/13/16 04:47 Seg Neuts % (Manual) 92.0 % (40.0-70.0) H 11/13/16 04:47 Band Neutrophils % 0 % 11/13/16 04:47 Lymphocytes % (Manual) 5.0 % (13.4-35.0) L 11/13/16 04:47 Reactive Lymphs % (Man) 0 % 11/13/16 04:47 Monocytes % (Manual) 3.0 % (0.0-7.3) 11/13/16 04:47 Eosinophils % (Manual) 0 % (0.0-4.3) 11/13/16 04:47 Basophils % (Manual) 0 % (0.0-1.8) 11/13/16 04:47 Metamyelocytes % 0 % 11/13/16 04:47 Myelocytes % 0 % 11/13/16 04:47 Promyelocytes % 0 % 11/13/16 04:47 Blast Cells % 0 % 11/13/16 04:47 Nucleated RBC % Not Reportable 11/13/16 04:47 Seg Neutrophils # 5.0 K/mm3 (1.8-7.7) 11/08/16 06:45 Seg Neutrophils # Man 7.8 K/mm3 (1.8-7.7) H 11/13/16 04:47 Band Neutrophils # 0.0 K/mm3 11/13/16 04:47 Lymphocytes # (Manual) 0.4 K/mm3 (1.2-5.4) L 11/13/16 04:47 Abs React Lymphs (Man) 0.0 K/mm3 11/13/16 04:47 Monocytes # (Manual) 0.3 K/mm3 (0.0-0.8) 11/13/16 04:47 Eosinophils # (Manual) 0.0 K/mm3 (0.0-0.4) 11/13/16 04:47 Basophils # (Manual) 0.0 K/mm3 (0.0-0.1) 11/13/16 04:47 Metamyelocytes # 0.0 K/mm3 11/13/16 04:47 Myelocytes # 0.0 K/mm3 11/13/16 04:47 Promyelocytes # 0.0 K/mm3 11/13/16 04:47 Blast Cells # 0.0 K/mm3 11/13/16 04:47 WBC Morphology Not Reportable 11/13/16 04:47 Hypersegmented Neuts Not Reportable 11/13/16 04:47 Hyposegmented Neuts Not Reportable 11/13/16 04:47 Hypogranular Neuts Not Reportable 11/13/16 04:47 Smudge Cells Not Reportable 11/13/16 04:47 Toxic Granulation Not Reportable 11/13/16 04:47 Toxic Vacuolation Not Reportable 11/13/16 04:47 Dohle Bodies Not Reportable 11/13/16 04:47 Pelger-Huet Anomaly Not Reportable 11/13/16 04:47 Tamanna Rods Not Reportable 11/13/16 04:47 Platelet Estimate Consistent w auto 11/13/16 04:47 Clumped Platelets Not Reportable 11/13/16 04:47 Plt Clumps, EDTA Not Reportable 11/13/16 04:47 Large Platelets Not Reportable 11/13/16 04:47 Giant Platelets Not Reportable 11/13/16 04:47 Platelet Satelliting Not Reportable 11/13/16 04:47 Plt Morphology Comment Not Reportable 11/13/16 04:47 RBC Morphology Not Reportable 11/13/16 04:47 Dimorphic RBCs Not Reportable 11/13/16 04:47 Polychromasia Rare 11/13/16 04:47 Hypochromasia Not Reportable 11/13/16 04:47 Poikilocytosis Not Reportable 11/13/16 04:47 Anisocytosis 1+ 11/13/16 04:47 Microcytosis Not Reportable 11/13/16 04:47 Macrocytosis Not Reportable 11/13/16 04:47 Spherocytes Not Reportable 11/13/16 04:47 Pappenheimer Bodies Not Reportable 11/13/16 04:47 Sickle Cells Not Reportable 11/13/16 04:47 Target Cells Not Reportable 11/13/16 04:47 Tear Drop Cells Not Reportable 11/13/16 04:47 Ovalocytes Not Reportable 11/13/16 04:47 Helmet Cells Not Reportable 11/13/16 04:47 [place] Bodies Not Reportable 11/13/16 04:47 [place] Rings Not Reportable 11/13/16 04:47 Renny Cells Not Reportable 11/13/16 04:47 Bite Cells Not Reportable 11/13/16 04:47 Crenated Cell Not Reportable 11/13/16 04:47 Elliptocytes Not Reportable 11/13/16 04:47 Acanthocytes (Spur) Not Reportable 11/13/16 04:47 Rouleaux Not Reportable 11/13/16 04:47 Hemoglobin C Crystals Not Reportable 11/13/16 04:47 Schistocytes Not Reportable 11/13/16 04:47 Malaria parasites Not Reportable 11/13/16 04:47 Percent Retic 4.37 % (0.78-2.58) H 11/10/16 19:09 Javi Bodies Not Reportable 11/13/16 04:47 Hem Pathologist Commnt No 11/13/16 04:47 PT 14.8 Sec. (12.2-14.9) 11/13/16 04:47 INR 1.10 (0.87-1.13) 11/13/16 04:47 APTT 38.5 Sec. (24.2-36.6) H 11/08/16 12:04 D-Dimer 1575.53 ng/mlDDU (0-234) H 11/07/16 16:35 Heparin Anti-Xa Level 0.12 U.I./ml (0.3-0.7) L 11/10/16 07:16 POC ABG pH 7.371 (7.35-7.45) 11/07/16 18:14 POC ABG pCO2 27.0 (35-45) L 11/07/16 18:14 POC ABG pO2 124 (80-105) H 11/07/16 18:14 POC ABG HCO3 15.6 11/07/16 18:14 POC ABG Total CO2 16 11/07/16 18:14 POC ABG O2 Sat 99 11/07/16 18:14 POC ABG Base Excess -10 11/07/16 18:14 FiO2 35 % 11/07/16 18:14 Sodium 136 mmol/L (137-145) L 11/14/16 08:49 Potassium 3.9 mmol/L (3.6-5.0) 11/14/16 08:49 Chloride 94.4 mmol/L (98-107) L 11/14/16 08:49 Carbon Dioxide 22 mmol/L (22-30) 11/14/16 08:49 Anion Gap 24 mmol/L 11/14/16 08:49 BUN 92 mg/dL (7-17) H 11/14/16 08:49 Creatinine 4.5 mg/dL (0.7-1.2) H 11/14/16 08:49 Estimated GFR 12 ml/min 11/14/16 08:49 BUN/Creatinine Ratio 20.44 % 11/14/16 08:49 Glucose 196 mg/dL (65-100) H 11/14/16 08:49 POC Glucose 174 (70-105) H 11/13/16 05:48 Hemoglobin A1c 4.8 % (4-6) 11/07/16 16:35 Lactic Acid 1.10 mmol/L (0.7-2.0) 11/09/16 03:19 Calcium 7.2 mg/dL (8.4-10.2) L 11/14/16 08:49 Iron 70 ug/dL (37-170) 11/10/16 18:10 TIBC 237 mcg/dL (250-450) L 11/10/16 18:10 Ferritin 211.2 ng/mL (13.0-400.0) 11/10/16 18:10 Total Bilirubin 0.40 mg/dL (0.1-1.2) 11/08/16 06:45 AST 164 units/L (5-40) H 11/08/16 06:45 ALT 47 units/L (7-56) 11/08/16 06:45 Alkaline Phosphatase 89 units/L (35-129) 11/08/16 06:45 Total Creatine Kinase 947 units/L (30-135) H 11/08/16 17:09 CK-MB (CK-2) 91.7 ng/mL (0.0-4.0) H 11/08/16 17:09 CK-MB (CK-2) Rel Index 9.6 (0-4) H 11/08/16 17:09 Troponin T 6.920 ng/mL (0.00-0.029) H* 11/07/16 18:36 C-Reactive Protein 5.80 mg/dL (0.00-1.30) H 11/08/16 17:09 NT-Pro-B Natriuret Pep 27293 pg/mL (0-900) H 11/07/16 16:35 Total Protein 5.6 g/dL (6.3-8.2) L 11/08/16 06:45 Albumin 2.5 g/dL (3.9-5) L 11/08/16 06:45 Albumin/Globulin Ratio 0.8 % 11/08/16 06:45 Triglycerides 69 mg/dL (2-149) 11/07/16 16:35 Cholesterol 129 mg/dL (50-199) 11/07/16 16:35 LDL Cholesterol Direct 56 mg/dL (50-130) 11/07/16 16:35 HDL Cholesterol 60 mg/dL (40-59) H 11/07/16 16:35 Cholesterol/HDL Ratio 2.15 % 11/07/16 16:35 TSH 4.120 mlU/mL (0.270-4.200) 11/09/16 15:38 Urine Color Yellow (Yellow) 11/08/16 13:56 Urine Turbidity Cloudy (Clear) 11/08/16 13:56 Urine pH 5.0 (5.0-7.0) 11/08/16 13:56 Ur Specific [place] 1.013 (1.003-1.030) 11/08/16 13:56 Urine Protein 100 mg/dl mg/dL (Negative) 11/08/16 13:56 Urine Glucose (UA) Neg mg/dL (Negative) 11/08/16 13:56 Urine Ketones Neg mg/dL (Negative) 11/08/16 13:56 Urine Blood Lg (Negative) 11/08/16 13:56 Urine Nitrite Neg (Negative) 11/08/16 13:56 Urine Bilirubin Neg (Negative) 11/08/16 13:56 Urine Urobilinogen < 2.0 mg/dL (<2.0) 11/08/16 13:56 Ur Leukocyte Esterase Mod (Negative) 11/08/16 13:56 Urine WBC (Auto) 25.0 /HPF (0.0-6.0) H 11/08/16 13:56 Urine RBC (Auto) > 182.0 /HPF (0.0-6.0) 11/08/16 13:56 U Epithel Cells (Auto) 20.0 /HPF (0-13.0) H 11/08/16 13:56 Urine WBC Clumps Few /HPF 11/08/16 13:56 Ur Transition Epith Cell 2 /HPF 11/08/16 13:56 Urine Creatinine 161.2 mg/dL (0.1-20.0) H 11/08/16 13:56 Protein/Creatinin Ratio 0.91 11/08/16 13:56 Urine Total Protein 146 mg/dL (5-11.8) H 11/08/16 13:56 Hep Bs Antigen Non-reactive (Negative) 11/10/16 04:32 Hepatitis C Antibody Non-reactive (NonReactive) 11/10/16 04:32
--- NOTE | 2016-11-14 18:11 | Gastroenterology Progress Note ---
Assessment and Plan - Patient Problems (1) Anemia Current Visit: Yes Status: Acute Qualifiers: Anemia type: A Iron deficiency anemia type: I Vitamin B12 deficiency anemia type: V Folate deficiency anemia type: F Bone marrow failure anemia type: B Hemolytic anemia type: H Other causes of anemia: O Chronic kidney disease stage: C Plan to address problem: - Discussed with cardiology. Agree that she is high risk for procedure (EGD with flex sig) but that she is also high risk if nothing is done about heart lesions. - Colonoscopy (-) 2014 by report. - Will plan EGD/flex on Wednesday to reassure that there are no lesions present that would prevent high-dose/full anticoagulation during or after cardiac cath/ stenting. - For now, continue protonix. - Milrinone per cardiology. Subjective Date of service: 11/14/16 Principal diagnosis: NSTEMI , Anemia Interval history: The patient has had no bleeding today; she is tolerating some but not all of her meals without N/V/abdominal pain. She denies fevers, chills, melena, hematochezia, or hematemesis. Objective - Constitutional Vitals: Temp Pulse Resp BP Pulse Ox 98.3 F 84 18 143/67 100 11/14/16 11:10 11/14/16 14:44 11/14/16 14:44 11/14/16 11:10 11/14/16 09:35 General appearance: no acute distress - EENT Eyes: PERRL, EOM intact ENT: hearing intact, clear oral mucosa - Respiratory Respiratory effort: normal Respiratory: bilateral: CTA - Cardiovascular Rhythm: regular Heart Sounds: Present: S1 & S2, systolic murmur - Gastrointestinal General gastrointestinal: Present: soft, non-tender, non-distended - Labs CBC & Chem 7: 11/13/16 04:47 11/14/16 08:49 Labs: Laboratory Results - last 24 hr 11/14/16 08:49 Sodium 136 L Potassium 3.9 Chloride 94.4 L Carbon Dioxide 22 Anion Gap 24 BUN 92 H Creatinine 4.5 H Estimated GFR 12 BUN/Creatinine Ratio 20.44 Glucose 196 H Calcium 7.2 L
[2016-11-14] MEDS: PERCOCET 5/325 PO PRN (21:31)
[2016-11-15] MEDS ORDERED: NACL 0.9% 100 ML IV PRN (08:00)
--- NOTE | 2016-11-15 08:03 | Progress Note ---
Assessment and Plan - Patient Problems (1) Acute kidney injury superimposed on CKD Current Visit: Yes Status: Acute Plan to address problem: patient with increased urine output >1L/day with lasix trial, however worsening azotemia in between HD noted. Will cont intermittent HD, next tentatively tomorrow, unless acute electrolyte abnormalities/metabolic acidosis seen on repeat BMP today. Volume status is fair, will hold lasix for now. Hyperkalemia and acidosis improved on HD. Avoid nephrotoxics (2) Acute on chronic systolic (congestive) heart failure Current Visit: Yes Status: Acute Plan to address problem: Strict I/Os 2D echo showed EF of 10-15 % Cont BB, JEF-I, Fluid removal with HD (3) NSTEMI (non-ST elevated myocardial infarction) Current Visit: Yes Status: Acute Plan to address problem: Management per Cardio. awaiting cardiac cath, after EGD to rule out lesions/ bleeding that would preclude anticoagulation during/post PCI (4) Acute respiratory failure with hypoxia Current Visit: Yes Status: Acute Plan to address problem: now stable. BiPAP support as needed (5) HTN (hypertension) Current Visit: Yes Status: Chronic Qualifiers: Hypertension type: essential hypertension Qualified Code(s): I10 - Essential (primary) hypertension Plan to address problem: monitor BP on current meds (6) Metabolic acidosis Current Visit: Yes Status: Acute Plan to address problem: improved on HD Subjective Date of service: 11/15/16 Principal diagnosis: NSTEMI , Anemia Interval history: Pt awake, alert, in no acute respiratory distress. Objective - Vital Signs Vital signs: Vital Signs - 12hr 11/14/16 11/14/16 11/14/16 20:41 21:28 21:30 Temperature 98.9 F Pulse Rate 93 H 93 H Pulse Rate [ 93 H Left] Pulse Rate [ Right] Respiratory 18 Rate Respiratory Rate [denies pain] Blood Pressure 106/47 106/47 Blood Pressure 106/47 [Left Arm] Blood Pressure [Right Radial Artery] O2 Sat by Pulse 97 Oximetry 11/14/16 11/14/16 11/15/16 21:31 21:43 01:00 Temperature 97.6 F Pulse Rate Pulse Rate [ 75 Left] Pulse Rate [ Right] Respiratory 20 18 Rate Respiratory Rate [denies pain] Blood Pressure Blood Pressure 112/53 [Left Arm] Blood Pressure [Right Radial Artery] O2 Sat by Pulse 96 94 Oximetry 11/15/16 11/15/16 11/15/16 02:31 04:59 07:47 Temperature 98.9 F 97.6 F Pulse Rate 93 H Pulse Rate [ 65 Left] Pulse Rate [ 78 Right] Respiratory 20 14 Rate Respiratory 20 Rate [denies pain] Blood Pressure Blood Pressure 121/68 [Left Arm] Blood Pressure 109/56 [Right Radial Artery] O2 Sat by Pulse 94 96 Oximetry - General Appearance General appearance: appears stated age, fatigue EENT: ATNC, PERRL, mucous membranes moist Neck: no JVD Respiratory: Present: Clear to Ascultation Cardiology: regular, S1S2 Gastrointestinal: normoactive bowel sounds Integumentary: no rash, other (no edema ) Neurologic: no focal deficit, alert and oriented x3, CN 3-12 intact Psychiatric: mood/affect appropriate, cooperative - Lab 11/13/16 04:47 11/14/16 08:49 Most recent lab results Calcium 7.2 mg/dL (8.4-10.2) L 11/14/16 08:49 Urine Creatinine 161.2 mg/dL (0.1-20.0) H 11/08/16 13:56 Urine Total Protein 146 mg/dL (5-11.8) H 11/08/16 13:56
[2016-11-15] MEDS: DUONEB *Not for PRN Use IH SCH ×3 (08:11→21:10)
[2016-11-15] MEDS: APRESOLINE PO SCH ×3 (08:14→21:17)
--- NOTE | 2016-11-15 09:35 | Gastroenterology Progress Note ---
Assessment and Plan - Patient Problems (1) Anemia Current Visit: Yes Status: Acute Qualifiers: Anemia type: A Iron deficiency anemia type: I Vitamin B12 deficiency anemia type: V Folate deficiency anemia type: F Bone marrow failure anemia type: B Hemolytic anemia type: H Other causes of anemia: O Chronic kidney disease stage: C Plan to address problem: - Discussed with cardiology. Agree that she is high risk for procedure (EGD with flex sig) but that she is also high risk if nothing is done about heart lesions. - Colonoscopy (-) 2014 by report. - Will plan EGD/flex on Wednesday to reassure that there are no lesions present that would prevent high-dose/full anticoagulation during or after cardiac cath/ stenting. - For now, continue protonix. - Milrinone per cardiology. Subjective Date of service: 11/15/16 Principal diagnosis: Anemia Interval history: The patient has had no N/V overnight, and is tolerating a regular diet. She has no CP or SOB, but is not exerting. She does c/o rectal bleeding from her hemorrhoids. Objective - Constitutional Vitals: Temp Pulse Resp BP Pulse Ox 97.6 F 78 14 109/56 96 11/15/16 07:47 11/15/16 08:14 11/15/16 07:47 11/15/16 08:14 11/15/16 07:47 General appearance: no acute distress - EENT Eyes: PERRL, EOM intact - Respiratory Respiratory effort: normal Respiratory: bilateral: CTA - Cardiovascular Rhythm: regular Heart Sounds: Present: S1 & S2 - Gastrointestinal General gastrointestinal: Present: soft, non-tender, non-distended - Labs CBC & Chem 7: 11/13/16 04:47 11/14/16 08:49 Labs: Laboratory Results - last 24 hr 11/14/16 08:49 Sodium 136 L Potassium 3.9 Chloride 94.4 L Carbon Dioxide 22 Anion Gap 24 BUN 92 H Creatinine 4.5 H Estimated GFR 12 BUN/Creatinine Ratio 20.44 Glucose 196 H Calcium 7.2 L
[2016-11-15] MEDS: OYSCO D 500 MG-200 UNIT PO SCH (10:55)
[2016-11-15] MEDS: BABY ASPIRIN PO SCH (10:55)
[2016-11-15] MEDS: PROTONIX PO SCH (10:55)
[2016-11-15] MEDS: NAMENDA XR PO SCH (10:55)
[2016-11-15] MEDS: PRIMACOR 20 MG in D5W 80 ML IV SCH (11:00)
[2016-11-15] MEDS: IMDUR PO SCH (11:02)
[2016-11-15] MEDS: NORVASC PO SCH (11:02)
[2016-11-15] MEDS: COREG PO SCH ×2 (11:02→21:24)
[2016-11-15] MEDS: ZESTRIL PO SCH (11:03)
--- NOTE | 2016-11-15 13:11 | Progress Note ---
Assessment and Plan Assessment and plan: Patient is a 70-year-old woman with a history of hypertension, type 2 diabetes mellitus, CVA, advanced dementia and osteoporosis who presented with nausea, vomiting, diarrhea and shortness of breath. Portable chest x-ray reported as cardiomegaly, may be exacerbated by diminished lung volumes, subtle asymmetric increased opacity in the right upper lobe, this could be secondary to overlapping osseous structures, but underlying infiltrate or pulmonary lesion is not excluded, this can be further assessed CT of the chest. VQ scan read as limited study, very low probability of Pulmonary embolism. Bilateral renal ultrasound read as renal parenchymal disease, stable left renal cyst, small left pleural effusion. -Non-STEMI: Patient has received 48 hours of IV heparin, stopped heparin with drop hct d/w Dr. Shane, I added Aspirin to Coreg and Zocor -Pulmonary edema due to acute systolic heart failure: Continue diuresis -Acute renal failure/CK D3: Now on hemodialysis, nephrology following, -Acute hypoxic respiratory failure: Continue O2 therapy -Acute on chronic anemia with dropping hematocrit: Stopped heparin, checked fecal occult blood, iron studies==>positive FOBT, consulted GI, she had fairly recent c-scopy, possible EGD but will need Cardiology clearance if EGD needed. -DVT prophylaxis: SCDs only due to drop in hemoglobin Full code 11/12/16 Echo still pending, [facility] Hemodialysis per nephrology Disposition: Awaiting home hemodialysis set up, chair time/schedule 11/13/16: Transthoracic echocardiogram report by Dr. Shane read as left ventricular chamber size severely dilated, global left systolic function is severely decreased, estimated ejection fraction is 10-15%, mild concentric left ventricular hypertrophy, left atrium is severely dilated, moderate to severe MR , mild to moderate TR, evidence of mild pulmonary hypertension, trivial pericardial effusion, catheters visualizing right atrium. Patient going for cardiac catheterization 11/14/16: D/W milling operator, Dr. Shane. Patient does need Cardiac revascularization but high risk for GI bleeding. GI wants to do EGD to clear for anticoagulation/platelets/aspirin however she is high risk for the procedure /EGD due to EF 10% and non-STEMI. Dr. Shane will clear for EGD. I discuss hospice with daughter and her . They would like to wait at this particular time, continue full code. 11/15/16: daughter at bedside. No new issues. EGD tomorrow, reiterated that patient is high risk to the family History Interval history: Patient seen and examined. Follow up on renal failure. Overnight uneventful. No cp, sob, n/v or severe headaches. Imaging, old records, testing, labs, nursing notes reviewed. Daughter Noreen at bedside Hospitalist Physical - Physical exam Narrative exam: GEN: WDWN, NAD, AWAKE, ALERT, ORIENTATED x 2 CVS: RRR, NORMAL S1S2 LUNGS/CHEST: Basilar crackles NORMAL CHEST EXPANSION B, GOOD AIR ENTRY B ABD: SOFT, NTND, GBS, NO REBOUND OR GUARDING EXT/SKIN: Bilateral leg edema resolving MSK: FROM X 4 EXTREMITIES NEURO: CN 2-12 GROSSLY INTACT, NO NEW FOCAL DEFICITS PSY: CALM - Constitutional Vitals: Temp Pulse Resp BP Pulse Ox 97.2 F L 80 16 117/56 96 11/15/16 11:45 11/15/16 08:21 11/15/16 11:45 11/15/16 11:45 11/15/16 11:45 General appearance: Present: no acute distress, well-nourished Results - Labs CBC & Chem 7: 11/13/16 04:47 11/14/16 08:49 Labs: Laboratory Last Values WBC 8.5 K/mm3 (4.5-11.0) 11/13/16 04:47 RBC 2.82 M/mm3 (3.65-5.03) L 11/13/16 04:47 Hgb 9.1 gm/dl (10.1-14.3) L 11/13/16 04:47 Hct 27.8 % (30.3-42.9) L 11/13/16 04:47 MCV 99 fl (79-97) H 11/13/16 04:47 MCH 32 pg (28-32) 11/13/16 04:47 MCHC 33 % (30-34) 11/13/16 04:47 RDW 14.7 % (13.2-15.2) 11/13/16 04:47 Plt Count 89 K/mm3 (140-440) L 11/13/16 04:47 Lymph % (Auto) 8.0 % (13.4-35.0) L 11/08/16 06:45 [place] % (Auto) 2.7 % (0.0-7.3) 11/08/16 06:45 Eos % (Auto) 0.0 % (0.0-4.3) 11/08/16 06:45 Baso % (Auto) 0.1 % (0.0-1.8) 11/08/16 06:45 Lymph # 0.5 K/mm3 (1.2-5.4) L 11/08/16 06:45 [place] # 0.1 K/mm3 (0.0-0.8) 11/08/16 06:45 Eos # 0.0 K/mm3 (0.0-0.4) 11/08/16 06:45 Baso # 0.0 K/mm3 (0.0-0.1) 11/08/16 06:45 Add Manual Diff Complete 11/13/16 04:47 Total Counted 100 11/13/16 04:47 Seg Neutrophils % Civil Design Technician 11/13/16 04:47 Seg Neuts % (Manual) 92.0 % (40.0-70.0) H 11/13/16 04:47 Band Neutrophils % 0 % 11/13/16 04:47 Lymphocytes % (Manual) 5.0 % (13.4-35.0) L 11/13/16 04:47 Reactive Lymphs % (Man) 0 % 11/13/16 04:47 Monocytes % (Manual) 3.0 % (0.0-7.3) 11/13/16 04:47 Eosinophils % (Manual) 0 % (0.0-4.3) 11/13/16 04:47 Basophils % (Manual) 0 % (0.0-1.8) 11/13/16 04:47 Metamyelocytes % 0 % 11/13/16 04:47 Myelocytes % 0 % 11/13/16 04:47 Promyelocytes % 0 % 11/13/16 04:47 Blast Cells % 0 % 11/13/16 04:47 Nucleated RBC % Not Reportable 11/13/16 04:47 Seg Neutrophils # 5.0 K/mm3 (1.8-7.7) 11/08/16 06:45 Seg Neutrophils # Man 7.8 K/mm3 (1.8-7.7) H 11/13/16 04:47 Band Neutrophils # 0.0 K/mm3 11/13/16 04:47 Lymphocytes # (Manual) 0.4 K/mm3 (1.2-5.4) L 11/13/16 04:47 Abs React Lymphs (Man) 0.0 K/mm3 11/13/16 04:47 Monocytes # (Manual) 0.3 K/mm3 (0.0-0.8) 11/13/16 04:47 Eosinophils # (Manual) 0.0 K/mm3 (0.0-0.4) 11/13/16 04:47 Basophils # (Manual) 0.0 K/mm3 (0.0-0.1) 11/13/16 04:47 Metamyelocytes # 0.0 K/mm3 11/13/16 04:47 Myelocytes # 0.0 K/mm3 11/13/16 04:47 Promyelocytes # 0.0 K/mm3 11/13/16 04:47 Blast Cells # 0.0 K/mm3 11/13/16 04:47 WBC Morphology Not Reportable 11/13/16 04:47 Hypersegmented Neuts Not Reportable 11/13/16 04:47 Hyposegmented Neuts Not Reportable 11/13/16 04:47 Hypogranular Neuts Not Reportable 11/13/16 04:47 Smudge Cells Not Reportable 11/13/16 04:47 Toxic Granulation Not Reportable 11/13/16 04:47 Toxic Vacuolation Not Reportable 11/13/16 04:47 Dohle Bodies Not Reportable 11/13/16 04:47 Pelger-Huet Anomaly Not Reportable 11/13/16 04:47 Tamanna Rods Not Reportable 11/13/16 04:47 Platelet Estimate Consistent w auto 11/13/16 04:47 Clumped Platelets Not Reportable 11/13/16 04:47 Plt Clumps, EDTA Not Reportable 11/13/16 04:47 Large Platelets Not Reportable 11/13/16 04:47 Giant Platelets Not Reportable 11/13/16 04:47 Platelet Satelliting Not Reportable 11/13/16 04:47 Plt Morphology Comment Not Reportable 11/13/16 04:47 RBC Morphology Not Reportable 11/13/16 04:47 Dimorphic RBCs Not Reportable 11/13/16 04:47 Polychromasia Rare 11/13/16 04:47 Hypochromasia Not Reportable 11/13/16 04:47 Poikilocytosis Not Reportable 11/13/16 04:47 Anisocytosis 1+ 11/13/16 04:47 Microcytosis Not Reportable 11/13/16 04:47 Macrocytosis Not Reportable 11/13/16 04:47 Spherocytes Not Reportable 11/13/16 04:47 Pappenheimer Bodies Not Reportable 11/13/16 04:47 Sickle Cells Not Reportable 11/13/16 04:47 Target Cells Not Reportable 11/13/16 04:47 Tear Drop Cells Not Reportable 11/13/16 04:47 Ovalocytes Not Reportable 11/13/16 04:47 Helmet Cells Not Reportable 11/13/16 04:47 [place] Bodies Not Reportable 11/13/16 04:47 [place] Rings Not Reportable 11/13/16 04:47 Renny Cells Not Reportable 11/13/16 04:47 Bite Cells Not Reportable 11/13/16 04:47 Crenated Cell Not Reportable 11/13/16 04:47 Elliptocytes Not Reportable 11/13/16 04:47 Acanthocytes (Spur) Not Reportable 11/13/16 04:47 Rouleaux Not Reportable 11/13/16 04:47 Hemoglobin C Crystals Not Reportable 11/13/16 04:47 Schistocytes Not Reportable 11/13/16 04:47 Malaria parasites Not Reportable 11/13/16 04:47 Percent Retic 4.37 % (0.78-2.58) H 11/10/16 19:09 Javi Bodies Not Reportable 11/13/16 04:47 Hem Pathologist Commnt No 11/13/16 04:47 PT 14.8 Sec. (12.2-14.9) 11/13/16 04:47 INR 1.10 (0.87-1.13) 11/13/16 04:47 APTT 38.5 Sec. (24.2-36.6) H 11/08/16 12:04 D-Dimer 1575.53 ng/mlDDU (0-234) H 11/07/16 16:35 Heparin Anti-Xa Level 0.12 U.I./ml (0.3-0.7) L 11/10/16 07:16 POC ABG pH 7.371 (7.35-7.45) 11/07/16 18:14 POC ABG pCO2 27.0 (35-45) L 11/07/16 18:14 POC ABG pO2 124 (80-105) H 11/07/16 18:14 POC ABG HCO3 15.6 11/07/16 18:14 POC ABG Total CO2 16 11/07/16 18:14 POC ABG O2 Sat 99 11/07/16 18:14 POC ABG Base Excess -10 11/07/16 18:14 FiO2 35 % 11/07/16 18:14 Sodium 136 mmol/L (137-145) L 11/14/16 08:49 Potassium 3.9 mmol/L (3.6-5.0) 11/14/16 08:49 Chloride 94.4 mmol/L (98-107) L 11/14/16 08:49 Carbon Dioxide 22 mmol/L (22-30) 11/14/16 08:49 Anion Gap 24 mmol/L 11/14/16 08:49 BUN 92 mg/dL (7-17) H 11/14/16 08:49 Creatinine 4.5 mg/dL (0.7-1.2) H 11/14/16 08:49 Estimated GFR 12 ml/min 11/14/16 08:49 BUN/Creatinine Ratio 20.44 % 11/14/16 08:49 Glucose 196 mg/dL (65-100) H 11/14/16 08:49 POC Glucose 174 (70-105) H 11/13/16 05:48 Hemoglobin A1c 4.8 % (4-6) 11/07/16 16:35 Lactic Acid 1.10 mmol/L (0.7-2.0) 11/09/16 03:19 Calcium 7.2 mg/dL (8.4-10.2) L 11/14/16 08:49 Iron 70 ug/dL (37-170) 11/10/16 18:10 TIBC 237 mcg/dL (250-450) L 11/10/16 18:10 Ferritin 211.2 ng/mL (13.0-400.0) 11/10/16 18:10 Total Bilirubin 0.40 mg/dL (0.1-1.2) 11/08/16 06:45 AST 164 units/L (5-40) H 11/08/16 06:45 ALT 47 units/L (7-56) 11/08/16 06:45 Alkaline Phosphatase 89 units/L (35-129) 11/08/16 06:45 Total Creatine Kinase 947 units/L (30-135) H 11/08/16 17:09 CK-MB (CK-2) 91.7 ng/mL (0.0-4.0) H 11/08/16 17:09 CK-MB (CK-2) Rel Index 9.6 (0-4) H 11/08/16 17:09 Troponin T 6.920 ng/mL (0.00-0.029) H* 11/07/16 18:36 C-Reactive Protein 5.80 mg/dL (0.00-1.30) H 11/08/16 17:09 NT-Pro-B Natriuret Pep 49867 pg/mL (0-900) H 11/07/16 16:35 Total Protein 5.6 g/dL (6.3-8.2) L 11/08/16 06:45 Albumin 2.5 g/dL (3.9-5) L 11/08/16 06:45 Albumin/Globulin Ratio 0.8 % 11/08/16 06:45 Triglycerides 69 mg/dL (2-149) 11/07/16 16:35 Cholesterol 129 mg/dL (50-199) 11/07/16 16:35 LDL Cholesterol Direct 56 mg/dL (50-130) 11/07/16 16:35 HDL Cholesterol 60 mg/dL (40-59) H 11/07/16 16:35 Cholesterol/HDL Ratio 2.15 % 11/07/16 16:35 TSH 4.120 mlU/mL (0.270-4.200) 11/09/16 15:38 Urine Color Yellow (Yellow) 11/08/16 13:56 Urine Turbidity Cloudy (Clear) 11/08/16 13:56 Urine pH 5.0 (5.0-7.0) 11/08/16 13:56 Ur Specific [place] 1.013 (1.003-1.030) 11/08/16 13:56 Urine Protein 100 mg/dl mg/dL (Negative) 11/08/16 13:56 Urine Glucose (UA) Neg mg/dL (Negative) 11/08/16 13:56 Urine Ketones Neg mg/dL (Negative) 11/08/16 13:56 Urine Blood Lg (Negative) 11/08/16 13:56 Urine Nitrite Neg (Negative) 11/08/16 13:56 Urine Bilirubin Neg (Negative) 11/08/16 13:56 Urine Urobilinogen < 2.0 mg/dL (<2.0) 11/08/16 13:56 Ur Leukocyte Esterase Mod (Negative) 11/08/16 13:56 Urine WBC (Auto) 25.0 /HPF (0.0-6.0) H 11/08/16 13:56 Urine RBC (Auto) > 182.0 /HPF (0.0-6.0) 11/08/16 13:56 U Epithel Cells (Auto) 20.0 /HPF (0-13.0) H 11/08/16 13:56 Urine WBC Clumps Few /HPF 11/08/16 13:56 Ur Transition Epith Cell 2 /HPF 11/08/16 13:56 Urine Creatinine 161.2 mg/dL (0.1-20.0) H 11/08/16 13:56 Protein/Creatinin Ratio 0.91 11/08/16 13:56 Urine Total Protein 146 mg/dL (5-11.8) H 11/08/16 13:56 Hep Bs Antigen Non-reactive (Negative) 11/10/16 04:32 Hepatitis C Antibody Non-reactive (NonReactive) 11/10/16 04:32
--- NOTE | 2016-11-15 13:15 | Progress Note ---
Assessment and Plan - Patient Problems (1) NSTEMI (non-ST elevated myocardial infarction) Current Visit: Yes Status: Acute Plan to address problem: I had an extensive discussion this morning with the patient, her daughter and son-in-law. She has stentable lesions in the mid LAD and mid circumflex, but risk of interventional therapy is high DUE TO: 1. Underlying severe cardiomyopathy 2. Risk of aggressive anticoagulation during the procedure, and aggressive postprocedure antiplatelet therapy. We await upper GI endoscopy, following which if bioinformatics associate determines that anticoagulation and antiplatelet therapy can be given with acceptable risks , then we will proceed cautiously with coronary intervention and stent implantation with bare metal stents. If the risk of anticoagulation is deemed unacceptable, then patient will be recommended for medical therapy and conservative management. (2) Thrombocytopenia Current Visit: Yes Status: Acute Plan to address problem: Patient has progressive thrombocytopenia, a baseline platelet count of 182,000 is currently 89,000. This adds further additional risk to any planned coronary intervention, recommend hematology evaluation. Subjective Date of service: 11/15/16 Principal diagnosis: Anemia Interval history: The patient is comfortable, no acute distress. No new cardiac complaints. Hemodynamics are stable. We do find, in addition to presently listed comorbidities, that the patient has now developed progressive thrombocytopenia. Platelet count was 1 82,000 on presentation, currently is 89,000. The only heparin he receives is via her hemodialysis regimen. Otherwise, the etiology of thrombocytopenia is uncertain at this point. Objective Vital Signs Temp Pulse Pulse Pulse Pulse Resp Resp 11/15/16 11:45 97.2 F L 16 11/15/16 08:21 80 18 11/15/16 08:14 78 11/15/16 08:11 78 18 11/15/16 07:47 97.6 F 78 14 11/15/16 04:59 98.9 F 65 20 11/15/16 02:31 93 H 11/15/16 01:00 97.6 F 75 18 11/14/16 21:43 11/14/16 21:31 20 11/14/16 21:30 93 H 11/14/16 21:28 93 H 11/14/16 20:41 98.9 F 93 H 18 11/14/16 19:42 99 H 16 11/14/16 16:15 98.1 F 86 20 11/14/16 14:44 84 18 11/14/16 14:29 84 18 Resp BP BP BP Pulse Ox 11/15/16 11:45 117/56 96 11/15/16 08:21 11/15/16 08:14 109/56 11/15/16 08:11 95 11/15/16 07:47 109/56 96 11/15/16 04:59 121/68 94 11/15/16 02:31 20 11/15/16 01:00 112/53 94 11/14/16 21:43 96 11/14/16 21:31 11/14/16 21:30 106/47 11/14/16 21:28 106/47 11/14/16 20:41 106/47 97 11/14/16 19:42 11/14/16 16:15 109/51 98 11/14/16 14:44 11/14/16 14:29 - Physical Examination General: No Apparent Distress HEENT: Positive: PERRL Neck: Positive: trachea midline Cardiac: Positive: Reg Rate and Rhythm Lungs: Positive: Decreased Breath Sounds Neuro: Positive: Grossly Intact Abdomen: Positive: Soft, Active Bowel Sounds Skin: Positive: Clear Extremities: Present: +1 Edema - Imaging and Cardiology EKG: report reviewed (Sinus Tach pvc's LVH 119/min Repolarization abnormalities) - Allied health notes Allied health notes reviewed: RT
--- NOTE | 2016-11-15 16:10 | Progress Note ---
Assessment and Plan - Patient Problems (1) Acute pulmonary edema Current Visit: Yes Status: Acute Plan to address problem: Improved with UF/HD Continue with supplemental oxygen to keep O2 sats>94% (2) Acute respiratory failure with hypoxia Current Visit: Yes Status: Acute Plan to address problem: Much improved with HD/UF Supplemental oxygen, to keep sats>94%. (3) NSTEMI (non-ST elevated myocardial infarction) Current Visit: Yes Status: Acute Plan to address problem: Per cardiology service Cardio-protective measures s/p cardiac catheterization- has disease that needs re-vascularization. However with thrombocytopenia and probable GIB, wants upper GI endoscopy prior to decision on PCI (4) CKD (chronic kidney disease) stage 4, GFR 15-29 ml/min Current Visit: Yes Status: Chronic Plan to address problem: Per renal service (5) Thrombocytopenia Current Visit: Yes Status: Acute Plan to address problem: Monitor closely. No active bleeding at this time Subjective Date of service: 11/15/16 Principal diagnosis: NSTEMI Interval history: Seen and examined. Vitals, labs, medications, chart reviewed. Much improved. Breathing well, feels great. Awake having lunch s/p cardiac cath - need cardiac revascularization. Cardiology wants EGD and GI to re-evaluate prior to further decisions on cardiac interventions. Probable EGD tomorrow per hospitalist documentation. No new pulmonary issues, breathing better but continues to require some supplemental oxygen to keep O2 sats>94% Daughter and son-in-law at the bedside Objective - Exam Narrative Exam: GEN: WDWN, NAD, AWAKE, ALERT, ORIENTATED x 2 CVS: RRR, NORMAL S1S2 LUNGS/CHEST: Basilar crackles NORMAL CHEST EXPANSION B, GOOD AIR ENTRY B ABD: SOFT, NTND, GBS, NO REBOUND OR GUARDING EXT/SKIN: Bilateral leg edema resolving MSK: FROM X 4 EXTREMITIES NEURO: CN 2-12 GROSSLY INTACT, NO NEW FOCAL DEFICITS PSY: CALM Vital Signs - 12hr 11/15/16 11/15/16 11/15/16 04:59 07:47 08:11 Temperature 98.9 F 97.6 F Pulse Rate Pulse Rate [ 78 Anterior Bilateral Throughout] Pulse Rate [ 65 Left] Pulse Rate [ 78 Right] Respiratory 20 14 Rate Respiratory 18 Rate [Anterior Bilateral Throughout] Blood Pressure Blood Pressure 121/68 [Left Arm] Blood Pressure 109/56 [Right Radial Artery] O2 Sat by Pulse 94 96 95 Oximetry 11/15/16 11/15/16 11/15/16 08:14 08:21 10:03 Temperature Pulse Rate 78 Pulse Rate [ 80 Anterior Bilateral Throughout] Pulse Rate [ Left] Pulse Rate [ Right] Respiratory 16 Rate Respiratory 18 Rate [Anterior Bilateral Throughout] Blood Pressure 109/56 Blood Pressure [Left Arm] Blood Pressure [Right Radial Artery] O2 Sat by Pulse 96 Oximetry 11/15/16 11/15/16 11/15/16 11:45 13:33 13:43 Temperature 97.2 F L Pulse Rate Pulse Rate [ 77 80 Anterior Bilateral Throughout] Pulse Rate [ Left] Pulse Rate [ Right] Respiratory 16 Rate Respiratory 18 18 Rate [Anterior Bilateral Throughout] Blood Pressure Blood Pressure 117/56 [Left Arm] Blood Pressure [Right Radial Artery] O2 Sat by Pulse 96 Oximetry 11/15/16 11/15/16 15:01 15:30 Temperature 97.8 F Pulse Rate Pulse Rate [ Anterior Bilateral Throughout] Pulse Rate [ Left] Pulse Rate [ Right] Respiratory 16 Rate Respiratory Rate [Anterior Bilateral Throughout] Blood Pressure 117/56 Blood Pressure 124/57 [Left Arm] Blood Pressure [Right Radial Artery] O2 Sat by Pulse 97 Oximetry Constitutional: no acute distress Eyes: non-icteric ENT: oropharynx moist Neck: supple, no JVD Effort: normal Ascultation: Bilateral: diminished breath sounds, rales (basila) Cardiovascular: regular rate and rhythm Gastrointestinal: normoactive bowel sounds, soft, non-distended Integumentary: normal Extremities: no cyanosis, no edema, pink and warm, pulses normal, no ischemia or petechiae Neurologic: normal mental status, non-focal exam, CN II-XII normal Psychiatric: mood appropriate, affect normal CBC and BMP: 11/13/16 04:47 11/14/16 08:49 ABG, PT/INR, D-dimer: ABG POC ABG pH 7.371 (7.35-7.45) 11/07/16 18:14 POC ABG pCO2 27.0 (35-45) L 11/07/16 18:14 POC ABG pO2 124 (80-105) H 11/07/16 18:14 POC ABG HCO3 15.6 11/07/16 18:14 POC ABG Total CO2 16 11/07/16 18:14 POC ABG O2 Sat 99 11/07/16 18:14 PT/INR, D-dimer PT 14.8 Sec. (12.2-14.9) 11/13/16 04:47 INR 1.10 (0.87-1.13) 11/13/16 04:47 D-Dimer 1575.53 ng/mlDDU (0-234) H 11/07/16 16:35 Abnormal lab findings: Abnormal Labs 11/07/16 11/08/16 11/08/16 21:43 06:45 06:45 RBC 2.37 L Hgb 7.6 L Hct 23.3 L D MCV 98 H Plt Count Lymph % (Auto) 8.0 L Lymph # 0.5 L Seg Neutrophils % 89.2 H Seg Neuts % (Manual) Lymphocytes % (Manual) Seg Neutrophils # Man Lymphocytes # (Manual) Percent Retic PT INR APTT Heparin Anti-Xa Level Sodium Potassium Chloride Carbon Dioxide 17 L BUN 52 H Creatinine 3.3 H Glucose 263 H POC Glucose Calcium TIBC AST 164 H Total Creatine Kinase 1584 H CK-MB (CK-2) 268.6 H CK-MB (CK-2) Rel Index 16.9 H C-Reactive Protein Total Protein 5.6 L Albumin 2.5 L Urine WBC (Auto) U Epithel Cells (Auto) Urine Creatinine Urine Total Protein 11/08/16 11/08/16 11/08/16 06:45 12:04 12:04 RBC Hgb 8.0 L Hct 23.7 L MCV Plt Count Lymph % (Auto) Lymph # Seg Neutrophils % Seg Neuts % (Manual) Lymphocytes % (Manual) Seg Neutrophils # Man Lymphocytes # (Manual) Percent Retic PT 16.5 H INR 1.34 H APTT 38.5 H Heparin Anti-Xa Level Sodium Potassium Chloride Carbon Dioxide BUN Creatinine Glucose POC Glucose Calcium TIBC AST Total Creatine Kinase 1273 H CK-MB (CK-2) 182.7 H CK-MB (CK-2) Rel Index 14.3 H C-Reactive Protein Total Protein Albumin Urine WBC (Auto) U Epithel Cells (Auto) Urine Creatinine Urine Total Protein 11/08/16 11/08/16 11/08/16 13:56 13:56 17:09 RBC Hgb Hct MCV Plt Count Lymph % (Auto) Lymph # Seg Neutrophils % Seg Neuts % (Manual) Lymphocytes % (Manual) Seg Neutrophils # Man Lymphocytes # (Manual) Percent Retic PT INR APTT Heparin Anti-Xa Level Sodium Potassium Chloride Carbon Dioxide BUN Creatinine Glucose POC Glucose Calcium TIBC AST Total Creatine Kinase 947 H CK-MB (CK-2) 91.7 H CK-MB (CK-2) Rel Index 9.6 H C-Reactive Protein Total Protein Albumin Urine WBC (Auto) 25.0 H U Epithel Cells (Auto) 20.0 H Urine Creatinine 161.2 H Urine Total Protein 146 H 11/08/16 11/09/16 11/09/16 17:09 03:19 07:04 RBC Hgb 8.6 L Hct 26.1 L MCV Plt Count Lymph % (Auto) Lymph # Seg Neutrophils % Seg Neuts % (Manual) Lymphocytes % (Manual) Seg Neutrophils # Man Lymphocytes # (Manual) Percent Retic PT INR APTT Heparin Anti-Xa Level Sodium 135 L Potassium 5.7 H D Chloride Carbon Dioxide 15 L BUN 70 H Creatinine 5.0 H D Glucose 169 H POC Glucose Calcium 7.9 L TIBC AST Total Creatine Kinase CK-MB (CK-2) CK-MB (CK-2) Rel Index C-Reactive Protein 5.80 H Total Protein Albumin Urine WBC (Auto) U Epithel Cells (Auto) Urine Creatinine Urine Total Protein 11/09/16 11/10/16 11/10/16 21:00 04:32 07:16 RBC Hgb 8.4 L Hct 25.6 L MCV Plt Count 111 L Lymph % (Auto) Lymph # Seg Neutrophils % Seg Neuts % (Manual) Lymphocytes % (Manual) Seg Neutrophils # Man Lymphocytes # (Manual) Percent Retic PT INR APTT Heparin Anti-Xa Level 0.91 H 0.12 L Sodium Potassium Chloride Carbon Dioxide BUN Creatinine Glucose POC Glucose Calcium TIBC AST Total Creatine Kinase CK-MB (CK-2) CK-MB (CK-2) Rel Index C-Reactive Protein Total Protein Albumin Urine WBC (Auto) U Epithel Cells (Auto) Urine Creatinine Urine Total Protein 11/10/16 11/10/16 11/10/16 10:05 18:10 19:09 RBC Hgb Hct MCV Plt Count Lymph % (Auto) Lymph # Seg Neutrophils % Seg Neuts % (Manual) Lymphocytes % (Manual) Seg Neutrophils # Man Lymphocytes # (Manual) Percent Retic 4.37 H PT INR APTT Heparin Anti-Xa Level Sodium Potassium Chloride 97.2 L Carbon Dioxide BUN 62 H Creatinine 4.4 H Glucose 206 H POC Glucose Calcium 7.0 L TIBC 237 L AST Total Creatine Kinase CK-MB (CK-2) CK-MB (CK-2) Rel Index C-Reactive Protein Total Protein Albumin Urine WBC (Auto) U Epithel Cells (Auto) Urine Creatinine Urine Total Protein 11/13/16 11/13/16 11/13/16 04:47 04:47 05:48 RBC 2.82 L Hgb 9.1 L Hct 27.8 L MCV 99 H Plt Count 89 L Lymph % (Auto) Lymph # Seg Neutrophils % Seg Neuts % (Manual) 92.0 H Lymphocytes % (Manual) 5.0 L Seg Neutrophils # Man 7.8 H Lymphocytes # (Manual) 0.4 L Percent Retic PT INR APTT Heparin Anti-Xa Level Sodium Potassium Chloride 96.8 L Carbon Dioxide BUN 60 H Creatinine 3.6 H Glucose 175 H POC Glucose 174 H Calcium 7.1 L TIBC AST Total Creatine Kinase CK-MB (CK-2) CK-MB (CK-2) Rel Index C-Reactive Protein Total Protein Albumin Urine WBC (Auto) U Epithel Cells (Auto) Urine Creatinine Urine Total Protein 11/14/16 08:49 RBC Hgb Hct MCV Plt Count Lymph % (Auto) Lymph # Seg Neutrophils % Seg Neuts % (Manual) Lymphocytes % (Manual) Seg Neutrophils # Man Lymphocytes # (Manual) Percent Retic PT INR APTT Heparin Anti-Xa Level Sodium 136 L Potassium Chloride 94.4 L Carbon Dioxide BUN 92 H Creatinine 4.5 H Glucose 196 H POC Glucose Calcium 7.2 L TIBC AST Total Creatine Kinase CK-MB (CK-2) CK-MB (CK-2) Rel Index C-Reactive Protein Total Protein Albumin Urine WBC (Auto) U Epithel Cells (Auto) Urine Creatinine Urine Total Protein Allied health notes reviewed: RT
[2016-11-16] MEDS: PRIMACOR 20 MG in D5W 80 ML IV SCH ×2 (01:52→15:36)
[2016-11-16 06:26] LABS: Calcium 7.3 mg/dL (8.4-10.2); Chloride 90.7 mmol/L (98-107); Potassium 4.2 mmol/L (3.6-5.0)
[2016-11-16 06:36] LABS: BUN/Creatinine Ratio 27.2
[2016-11-16] MEDS: APRESOLINE PO SCH ×3 (08:31→21:41)
[2016-11-16] MEDS: DUONEB *Not for PRN Use IH SCH ×3 (08:54→19:55)
[2016-11-16] MEDS ORDERED: DULCOLAX PR SCH (09:00)
--- NOTE | 2016-11-16 09:19 | Progress Note ---
Assessment and Plan (1) NATHALIA vs CKD, Baseline unavailable, CRS, now requiring dialysis Current Visit: Yes Status: Acute Plan to address problem: HD today, and continue MWF schedule Renal U/S reviewed. No hydronephrosis Avoid nephrotoxics Valsartan and Lasix have been d/asher Monitor for renal recovery Out patient dialysis placement at [facility] in process (2) Acute systolic congestive herat failure Current Visit: Yes Status: Acute Plan to address problem: UF on dialysis Strict I/Os 2D echo report reviewed. It showed EF of 10-15 % She is scheduled for cardiac cath this week (3) NSTEMI (non-ST elevated myocardial infarction) Current Visit: Yes Status: Acute Plan to address problem: Management per Cardio She is scheduled for cardiac cath this week (4) Acute hypoxic respiratory failure (Pneumonia /pulmonary edema) Current Visit: Yes Status: Acute improved with dialysis fluid removal (5) Essential HTN (hypertension) Current Visit: Yes Status: Chronic Qualifiers: Hypertension type: essential hypertension Qualified Code(s): I10 - Essential (primary) hypertension Plan to address problem: Stable. (6) GI bleeding Current Visit: Yes Status: Acute EGD today (7) Dementia Current Visit: Yes Status: Chronic Qualifiers: Dementia type: vascular dementia Alzheimer's disease onset: A Dementia behavioral disturbance: D Plan to address problem: Cont Namenda Subjective Date of service: 11/16/16 Principal diagnosis: NSTEMI Interval history: SOB/edema improved Objective - Exam Narrative Exam: General appearance: well-developed, well-nourished, appears stated age, no distress EENT: PERRL, mucous membranes moist Neck: Present: neck supple, trachea midline. Absent: JVD/HJR, Masses Respiratory: Decreased Breath Sounds, scattered wheezes Heart: regular, normal heart rate, S1S2, no murmurs Gastrointestinal: Present: normoactive bowel sounds. Absent: tenderness Integumentary: no rash, warm and dry Neurologic: no focal deficit, alert and oriented x3, gait normal, strength 5/5 Musculoskeletal: Absent: deformities, joint swelling Psychiatric: mood/affect appropriate, cooperative - Vital Signs Vital signs: Vital Signs - 12hr 11/15/16 11/15/16 11/15/16 21:17 21:18 21:24 Temperature Pulse Rate 80 80 Pulse Rate [ 80 Anterior Bilateral Throughout] Respiratory Rate Respiratory 18 Rate [Anterior Bilateral Throughout] Blood Pressure 115/74 112/72 Blood Pressure [Left Arm] O2 Sat by Pulse Oximetry 11/16/16 11/16/16 11/16/16 01:45 04:55 08:44 Temperature 97.8 F 98.5 F 98.3 F Pulse Rate Pulse Rate [ Anterior Bilateral Throughout] Respiratory 20 18 18 Rate Respiratory Rate [Anterior Bilateral Throughout] Blood Pressure Blood Pressure 120/70 129/58 114/55 [Left Arm] O2 Sat by Pulse 98 95 100 Oximetry 11/16/16 11/16/16 11/16/16 08:54 08:58 09:01 Temperature Pulse Rate Pulse Rate [ 89 Anterior Bilateral Throughout] Respiratory Rate Respiratory 18 Rate [Anterior Bilateral Throughout] Blood Pressure Blood Pressure [Left Arm] O2 Sat by Pulse 97 97 Oximetry 11/16/16 09:10 Temperature Pulse Rate Pulse Rate [ 86 Anterior Bilateral Throughout] Respiratory Rate Respiratory 18 Rate [Anterior Bilateral Throughout] Blood Pressure Blood Pressure [Left Arm] O2 Sat by Pulse Oximetry - Lab 11/13/16 04:47 11/16/16 05:29 Most recent lab results Calcium 7.3 mg/dL (8.4-10.2) L 11/16/16 05:29 Urine Creatinine 161.2 mg/dL (0.1-20.0) H 11/08/16 13:56 Urine Total Protein 146 mg/dL (5-11.8) H 11/08/16 13:56
[2016-11-16] MEDS: COREG PO SCH ×2 (10:33→21:41)
[2016-11-16] MEDS: BABY ASPIRIN PO SCH (10:33)
[2016-11-16] MEDS: IMDUR PO SCH (10:33)
[2016-11-16] MEDS: NORVASC PO SCH (10:34)
[2016-11-16] MEDS: OYSCO D 500 MG-200 UNIT PO SCH (10:47)
[2016-11-16] MEDS: PROTONIX PO SCH (10:49)
[2016-11-16] MEDS: ZESTRIL PO SCH (10:50)
--- NOTE | 2016-11-16 12:20 | Progress Note ---
Assessment and Plan Assessment and plan: Patient is a 70-year-old woman with a history of hypertension, type 2 diabetes mellitus, CVA, advanced dementia and osteoporosis who presented with nausea, vomiting, diarrhea and shortness of breath. Portable chest x-ray reported as cardiomegaly, may be exacerbated by diminished lung volumes, subtle asymmetric increased opacity in the right upper lobe, this could be secondary to overlapping osseous structures, but underlying infiltrate or pulmonary lesion is not excluded, this can be further assessed CT of the chest. VQ scan read as limited study, very low probability of Pulmonary embolism. Bilateral renal ultrasound read as renal parenchymal disease, stable left renal cyst, small left pleural effusion. -Non-STEMI: Patient has received 48 hours of IV heparin, stopped heparin with drop hct d/w Dr. Shane, I added Aspirin to Coreg and Zocor -Pulmonary edema due to acute systolic heart failure: Continue diuresis -Acute renal failure/CK D3: Now on hemodialysis, nephrology following, -Acute hypoxic respiratory failure: Continue O2 therapy -Acute on chronic anemia with dropping hematocrit: Stopped heparin, checked fecal occult blood, iron studies==>positive FOBT, consulted GI, she had fairly recent c-scopy, possible EGD but will need Cardiology clearance if EGD needed. -DVT prophylaxis: SCDs only due to drop in hemoglobin Full code 11/12/16 Echo still pending, Hemodialysis per nephrology Disposition: Awaiting home hemodialysis set up, chair time/schedule 11/13/16: Transthoracic echocardiogram report by Dr. Shane read as left ventricular chamber size severely dilated, global left systolic function is severely decreased, estimated ejection fraction is 10-15%, mild concentric left ventricular hypertrophy, left atrium is severely dilated, moderate to severe MR , mild to moderate TR, evidence of mild pulmonary hypertension, trivial pericardial effusion, catheters visualizing right atrium. Patient going for cardiac catheterization 11/14/16: D/W catering manager, Dr. Shane. Patient does need Cardiac revascularization but high risk for GI bleeding. GI wants to do EGD to clear for anticoagulation/platelets/aspirin however she is high risk for the procedure /EGD due to EF 10% and non-STEMI. Dr. Shane will clear for EGD. I discuss hospice with daughter and her . They would like to wait at this particular time, continue full code. 11/15/16: daughter at bedside. No new issues. EGD tomorrow, reiterated that patient is high risk to the family 11/16/16: No new issues, daughter, Noreen and her at bedside, EGD today. History Interval history: Patient seen and examined. Follow up on renal failure. Overnight uneventful. No cp, sob, n/v or severe headaches. Imaging, old records, testing, labs, nursing notes reviewed. Daughter Noreen at bedside Hospitalist Physical - Physical exam Narrative exam: GEN: WDWN, NAD, AWAKE, ALERT, ORIENTATED x 2 CVS: RRR, NORMAL S1S2 LUNGS/CHEST: Basilar crackles NORMAL CHEST EXPANSION B, GOOD AIR ENTRY B ABD: SOFT, NTND, GBS, NO REBOUND OR GUARDING EXT/SKIN: Bilateral leg edema resolving MSK: FROM X 4 EXTREMITIES NEURO: CN 2-12 GROSSLY INTACT, NO NEW FOCAL DEFICITS PSY: CALM - Constitutional Vitals: Temp Pulse Resp BP Pulse Ox 98.3 F 86 18 114/55 97 11/16/16 08:44 11/16/16 09:10 11/16/16 09:10 11/16/16 08:44 11/16/16 09:01 General appearance: Present: no acute distress, well-nourished Results - Labs CBC & Chem 7: 11/13/16 04:47 11/16/16 05:29 Labs: Laboratory Last Values WBC 8.5 K/mm3 (4.5-11.0) 11/13/16 04:47 RBC 2.82 M/mm3 (3.65-5.03) L 11/13/16 04:47 Hgb 9.1 gm/dl (10.1-14.3) L 11/13/16 04:47 Hct 27.8 % (30.3-42.9) L 11/13/16 04:47 MCV 99 fl (79-97) H 11/13/16 04:47 MCH 32 pg (28-32) 11/13/16 04:47 MCHC 33 % (30-34) 11/13/16 04:47 RDW 14.7 % (13.2-15.2) 11/13/16 04:47 Plt Count 89 K/mm3 (140-440) L 11/13/16 04:47 Lymph % (Auto) 8.0 % (13.4-35.0) L 11/08/16 06:45 [place] % (Auto) 2.7 % (0.0-7.3) 11/08/16 06:45 Eos % (Auto) 0.0 % (0.0-4.3) 11/08/16 06:45 Baso % (Auto) 0.1 % (0.0-1.8) 11/08/16 06:45 Lymph # 0.5 K/mm3 (1.2-5.4) L 11/08/16 06:45 [place] # 0.1 K/mm3 (0.0-0.8) 11/08/16 06:45 Eos # 0.0 K/mm3 (0.0-0.4) 11/08/16 06:45 Baso # 0.0 K/mm3 (0.0-0.1) 11/08/16 06:45 Add Manual Diff Complete 11/13/16 04:47 Total Counted 100 11/13/16 04:47 Seg Neutrophils % Mechanical Equipment Test Engineer 11/13/16 04:47 Seg Neuts % (Manual) 92.0 % (40.0-70.0) H 11/13/16 04:47 Band Neutrophils % 0 % 11/13/16 04:47 Lymphocytes % (Manual) 5.0 % (13.4-35.0) L 11/13/16 04:47 Reactive Lymphs % (Man) 0 % 11/13/16 04:47 Monocytes % (Manual) 3.0 % (0.0-7.3) 11/13/16 04:47 Eosinophils % (Manual) 0 % (0.0-4.3) 11/13/16 04:47 Basophils % (Manual) 0 % (0.0-1.8) 11/13/16 04:47 Metamyelocytes % 0 % 11/13/16 04:47 Myelocytes % 0 % 11/13/16 04:47 Promyelocytes % 0 % 11/13/16 04:47 Blast Cells % 0 % 11/13/16 04:47 Nucleated RBC % Not Reportable 11/13/16 04:47 Seg Neutrophils # 5.0 K/mm3 (1.8-7.7) 11/08/16 06:45 Seg Neutrophils # Man 7.8 K/mm3 (1.8-7.7) H 11/13/16 04:47 Band Neutrophils # 0.0 K/mm3 11/13/16 04:47 Lymphocytes # (Manual) 0.4 K/mm3 (1.2-5.4) L 11/13/16 04:47 Abs React Lymphs (Man) 0.0 K/mm3 11/13/16 04:47 Monocytes # (Manual) 0.3 K/mm3 (0.0-0.8) 11/13/16 04:47 Eosinophils # (Manual) 0.0 K/mm3 (0.0-0.4) 11/13/16 04:47 Basophils # (Manual) 0.0 K/mm3 (0.0-0.1) 11/13/16 04:47 Metamyelocytes # 0.0 K/mm3 11/13/16 04:47 Myelocytes # 0.0 K/mm3 11/13/16 04:47 Promyelocytes # 0.0 K/mm3 11/13/16 04:47 Blast Cells # 0.0 K/mm3 11/13/16 04:47 WBC Morphology Not Reportable 11/13/16 04:47 Hypersegmented Neuts Not Reportable 11/13/16 04:47 Hyposegmented Neuts Not Reportable 11/13/16 04:47 Hypogranular Neuts Not Reportable 11/13/16 04:47 Smudge Cells Not Reportable 11/13/16 04:47 Toxic Granulation Not Reportable 11/13/16 04:47 Toxic Vacuolation Not Reportable 11/13/16 04:47 Dohle Bodies Not Reportable 11/13/16 04:47 Pelger-Huet Anomaly Not Reportable 11/13/16 04:47 Tamanna Rods Not Reportable 11/13/16 04:47 Platelet Estimate Consistent w auto 11/13/16 04:47 Clumped Platelets Not Reportable 11/13/16 04:47 Plt Clumps, EDTA Not Reportable 11/13/16 04:47 Large Platelets Not Reportable 11/13/16 04:47 Giant Platelets Not Reportable 11/13/16 04:47 Platelet Satelliting Not Reportable 11/13/16 04:47 Plt Morphology Comment Not Reportable 11/13/16 04:47 RBC Morphology Not Reportable 11/13/16 04:47 Dimorphic RBCs Not Reportable 11/13/16 04:47 Polychromasia Rare 11/13/16 04:47 Hypochromasia Not Reportable 11/13/16 04:47 Poikilocytosis Not Reportable 11/13/16 04:47 Anisocytosis 1+ 11/13/16 04:47 Microcytosis Not Reportable 11/13/16 04:47 Macrocytosis Not Reportable 11/13/16 04:47 Spherocytes Not Reportable 11/13/16 04:47 Pappenheimer Bodies Not Reportable 11/13/16 04:47 Sickle Cells Not Reportable 11/13/16 04:47 Target Cells Not Reportable 11/13/16 04:47 Tear Drop Cells Not Reportable 11/13/16 04:47 Ovalocytes Not Reportable 11/13/16 04:47 Helmet Cells Not Reportable 11/13/16 04:47 [place] Bodies Not Reportable 11/13/16 04:47 [place] Rings Not Reportable 11/13/16 04:47 Renny Cells Not Reportable 11/13/16 04:47 Bite Cells Not Reportable 11/13/16 04:47 Crenated Cell Not Reportable 11/13/16 04:47 Elliptocytes Not Reportable 11/13/16 04:47 Acanthocytes (Spur) Not Reportable 11/13/16 04:47 Rouleaux Not Reportable 11/13/16 04:47 Hemoglobin C Crystals Not Reportable 11/13/16 04:47 Schistocytes Not Reportable 11/13/16 04:47 Malaria parasites Not Reportable 11/13/16 04:47 Percent Retic 4.37 % (0.78-2.58) H 11/10/16 19:09 Javi Bodies Not Reportable 11/13/16 04:47 Hem Pathologist Commnt No 11/13/16 04:47 PT 14.8 Sec. (12.2-14.9) 11/13/16 04:47 INR 1.10 (0.87-1.13) 11/13/16 04:47 APTT 38.5 Sec. (24.2-36.6) H 11/08/16 12:04 D-Dimer 1575.53 ng/mlDDU (0-234) H 11/07/16 16:35 Heparin Anti-Xa Level 0.12 U.I./ml (0.3-0.7) L 11/10/16 07:16 POC ABG pH 7.371 (7.35-7.45) 11/07/16 18:14 POC ABG pCO2 27.0 (35-45) L 11/07/16 18:14 POC ABG pO2 124 (80-105) H 11/07/16 18:14 POC ABG HCO3 15.6 11/07/16 18:14 POC ABG Total CO2 16 11/07/16 18:14 POC ABG O2 Sat 99 11/07/16 18:14 POC ABG Base Excess -10 11/07/16 18:14 FiO2 35 % 11/07/16 18:14 Sodium 132 mmol/L (137-145) L 11/16/16 05:29 Potassium 4.2 mmol/L (3.6-5.0) 11/16/16 05:29 Chloride 90.7 mmol/L (98-107) L 11/16/16 05:29 Carbon Dioxide 19 mmol/L (22-30) L 11/16/16 05:29 Anion Gap 27 mmol/L 11/16/16 05:29 BUN 136 mg/dL (7-17) H 11/16/16 05:29 Creatinine 5.0 mg/dL (0.7-1.2) H 11/16/16 05:29 Estimated GFR 10 ml/min 11/16/16 05:29 BUN/Creatinine Ratio 27.20 % 11/16/16 05:29 Glucose 223 mg/dL (65-100) H 11/16/16 05:29 POC Glucose 174 (70-105) H 11/13/16 05:48 Hemoglobin A1c 4.8 % (4-6) 11/07/16 16:35 Lactic Acid 1.10 mmol/L (0.7-2.0) 11/09/16 03:19 Calcium 7.3 mg/dL (8.4-10.2) L 11/16/16 05:29 Iron 70 ug/dL (37-170) 11/10/16 18:10 TIBC 237 mcg/dL (250-450) L 11/10/16 18:10 Ferritin 211.2 ng/mL (13.0-400.0) 11/10/16 18:10 Total Bilirubin 0.40 mg/dL (0.1-1.2) 11/08/16 06:45 AST 164 units/L (5-40) H 11/08/16 06:45 ALT 47 units/L (7-56) 11/08/16 06:45 Alkaline Phosphatase 89 units/L (35-129) 11/08/16 06:45 Total Creatine Kinase 947 units/L (30-135) H 11/08/16 17:09 CK-MB (CK-2) 91.7 ng/mL (0.0-4.0) H 11/08/16 17:09 CK-MB (CK-2) Rel Index 9.6 (0-4) H 11/08/16 17:09 Troponin T 6.920 ng/mL (0.00-0.029) H* 11/07/16 18:36 C-Reactive Protein 5.80 mg/dL (0.00-1.30) H 11/08/16 17:09 NT-Pro-B Natriuret Pep 11771 pg/mL (0-900) H 11/07/16 16:35 Total Protein 5.6 g/dL (6.3-8.2) L 11/08/16 06:45 Albumin 2.5 g/dL (3.9-5) L 11/08/16 06:45 Albumin/Globulin Ratio 0.8 % 11/08/16 06:45 Triglycerides 69 mg/dL (2-149) 11/07/16 16:35 Cholesterol 129 mg/dL (50-199) 11/07/16 16:35 LDL Cholesterol Direct 56 mg/dL (50-130) 11/07/16 16:35 HDL Cholesterol 60 mg/dL (40-59) H 11/07/16 16:35 Cholesterol/HDL Ratio 2.15 % 11/07/16 16:35 TSH 4.120 mlU/mL (0.270-4.200) 11/09/16 15:38 Urine Color Yellow (Yellow) 11/08/16 13:56 Urine Turbidity Cloudy (Clear) 11/08/16 13:56 Urine pH 5.0 (5.0-7.0) 11/08/16 13:56 Ur Specific [place] 1.013 (1.003-1.030) 11/08/16 13:56 Urine Protein 100 mg/dl mg/dL (Negative) 11/08/16 13:56 Urine Glucose (UA) Neg mg/dL (Negative) 11/08/16 13:56 Urine Ketones Neg mg/dL (Negative) 11/08/16 13:56 Urine Blood Lg (Negative) 11/08/16 13:56 Urine Nitrite Neg (Negative) 11/08/16 13:56 Urine Bilirubin Neg (Negative) 11/08/16 13:56 Urine Urobilinogen < 2.0 mg/dL (<2.0) 11/08/16 13:56 Ur Leukocyte Esterase Mod (Negative) 11/08/16 13:56 Urine WBC (Auto) 25.0 /HPF (0.0-6.0) H 11/08/16 13:56 Urine RBC (Auto) > 182.0 /HPF (0.0-6.0) 11/08/16 13:56 U Epithel Cells (Auto) 20.0 /HPF (0-13.0) H 11/08/16 13:56 Urine WBC Clumps Few /HPF 11/08/16 13:56 Ur Transition Epith Cell 2 /HPF 11/08/16 13:56 Urine Creatinine 161.2 mg/dL (0.1-20.0) H 11/08/16 13:56 Protein/Creatinin Ratio 0.91 11/08/16 13:56 Urine Total Protein 146 mg/dL (5-11.8) H 11/08/16 13:56 Hep Bs Antigen Non-reactive (Negative) 11/10/16 04:32 Hepatitis C Antibody Non-reactive (NonReactive) 11/10/16 04:32
[2016-11-16] MEDS ORDERED: NACL 0.9 (PRIMING MACHINE ONLY DIALYSIS) MC ONE (12:45)
--- NOTE | 2016-11-16 12:53 | Progress Note ---
Assessment and Plan Renal failure initiated on dialysis this admission Acute decompensated systolic heart failure Anemia + FOBT; GI on board Thrombocytopenia NSTEMI [facility] this admission reports a 80% proximal OM2, 60-70% mid LAD, severe diffuse disease of a small distal RCA with left to right collaterals. Severe Cardiomyopathy LVEF 10-15% on echocardiogram Moderate to severe mitral regurgitation Prior CVA Hypertension Subjective Date of service: 11/16/16 Principal diagnosis: NSTEMI Interval history: Awaits GI endoscopy. No reported cardiac events overnight. Objective Vital Signs Temp Pulse Pulse Pulse Resp Resp BP 11/16/16 12:15 85 107/62 11/16/16 12:00 88 94/53 11/16/16 11:45 94 H 91/45 11/16/16 11:30 93 H 96/57 11/16/16 11:15 88 99/65 11/16/16 11:00 81 113/66 11/16/16 10:55 97.7 F 81 16 121/59 11/16/16 10:45 81 123/59 11/16/16 10:30 81 121/59 11/16/16 09:10 86 18 11/16/16 09:01 11/16/16 08:58 11/16/16 08:54 89 18 11/16/16 08:44 98.3 F 18 11/16/16 04:55 98.5 F 18 11/16/16 01:45 97.8 F 20 11/15/16 21:24 80 112/72 11/15/16 21:18 80 18 11/15/16 21:17 80 115/74 11/15/16 21:16 11/15/16 21:08 82 16 11/15/16 21:03 97.3 F L 80 20 115/74 11/15/16 15:30 97.8 F 16 11/15/16 15:01 117/56 11/15/16 13:43 80 18 11/15/16 13:33 77 18 BP Pulse Ox 11/16/16 12:15 11/16/16 12:00 11/16/16 11:45 11/16/16 11:30 11/16/16 11:15 11/16/16 11:00 11/16/16 10:55 11/16/16 10:45 11/16/16 10:30 11/16/16 09:10 11/16/16 09:01 97 11/16/16 08:58 97 11/16/16 08:54 11/16/16 08:44 114/55 100 11/16/16 04:55 129/58 95 11/16/16 01:45 120/70 98 11/15/16 21:24 11/15/16 21:18 11/15/16 21:17 11/15/16 21:16 97 11/15/16 21:08 11/15/16 21:03 98 11/15/16 15:30 124/57 97 11/15/16 15:01 11/15/16 13:43 11/15/16 13:33 - Physical Examination General: No Apparent Distress Cardiac: Positive: Reg Rate and Rhythm - Labs and Meds Comprehensive Metabolic Panel 11/16/16 Range/Units 05:29 Sodium 132 L (137-145) mmol/L Potassium 4.2 (3.6-5.0) mmol/L Chloride 90.7 L (98-107) mmol/L Carbon Dioxide 19 L (22-30) mmol/L BUN 136 H (7-17) mg/dL Creatinine 5.0 H (0.7-1.2) mg/dL Glucose 223 H (65-100) mg/dL Calcium 7.3 L (8.4-10.2) mg/dL - Imaging and Cardiology EKG: report reviewed (Sinus Tach pvc's LVH 119/min Repolarization abnormalities) - Allied health notes Allied health notes reviewed: RT
[2016-11-16] MEDS: HEPARIN IV PRN (15:25)
[2016-11-16] MEDS ORDERED: NEO SYNEPHRINE/NS Syringe(OR USE) IV ONE (16:30)
[2016-11-16] MEDS ORDERED: DIPRIVAN 10 MG/ML IV ONE ×2 (16:47)
[2016-11-16] MEDS ORDERED: AMIDATE IV ONE (16:47)
[2016-11-16] MEDS ORDERED: WATER FOR IRRIG STERILE IR ONE (16:48)
--- NOTE | 2016-11-16 16:57 | Anesthesia Consultation ---
Anesthesia Consult and Med Hx Date of service: 11/16/16 - Airway Anesthetic Teeth Evaluation: Edentulous ROM Head & Neck: Adequate Mental/Hyoid Distance: Adequate Mallampati Class: Class II Intubation Access Assessment: Probably Good - Pulmonary Exam CTA: No - Pre-Operative Health Status ASA Pre-Surgery Classification: ASA4 Proposed Anesthetic Plan: MAC - Pulmonary Hx Smoking: No Hx Asthma: No Hx Respiratory Symptoms: Yes (Acute respiratory failure, pulm edema) SOB: Yes COPD: No - Cardiovascular System Hx Hypertension: Yes (EF 10-15%, LVH) Hx Coronary Artery Disease: Yes Hx Heart Attack/AMI: Yes (NSTEMI) Hx Percutaneous Transluminal Coronary Angioplasty (PTCA): Yes Hx Valvular Heart Disease: Yes - Central Nervous System CVA: Yes (left leg weakness) - Gastrointestinal Hx Gastroesophageal Reflux Disease: No - Endocrine Hx Renal Disease: Yes (Stage 3 CKD) Hx Insulin Dependent Diabetes: Yes - Hematic Hx Anemia: Yes Hx Sickle Cell Disease: No - Other Systems Hx Alcohol Use: No Hx Substance Use: No Hx Cancer: No
--- NOTE | 2016-11-16 16:58 | Anesthesia Day of Surgery ---
Anesthesia Day of Surgery - Day of Surgery Patient Examined: Yes Patient H&P Reviewed: Yes Patient is NPO: Yes Beta Blockers: No (not given on floor)
[2016-11-16] MEDS ORDERED: NACL 0.9% 1000 ML 1,000 ML IV SCH (17:00)
--- NOTE | 2016-11-16 17:44 | Post Operative Note ---
Pre-op diagnosis: Anemia, Heme (+) stool Post-op diagnosis: other (Mild gastritis, hemorrhoids, copious brown stool ( without evidence of blood)) Findings: 1. No blood in the upper (or lower) GI tract 2. Mild gastritis characterized by erythema in the stomach, but no mucosal ulcerations and no varices 3. Grade I hemorrhoids 4. Solid stool in the rectum (brown without blood). Procedure: EGD and Flexible Sigmoidoscopy to Rectum Anesthesia: MAC Surgeon: KIRA CAMPOS Estimated blood loss: none Pathology: none Specimen disposition: other (N/A) Condition: stable Disposition: floor (Recs: 1. No lesions seen on EGD/Flex to preclude DAPT or anticoagulation during cardiac catheterization; however the patient's comorbidities puts her at significant risk for bleeding. 2. Continue daily protonix. 3. High fiber daily and sennakot.)
[2016-11-16] MEDS: NAMENDA XR PO SCH (18:49)
--- NOTE | 2016-11-16 19:22 | Progress Note ---
Assessment and Plan Patient alert, awake and resting on 2 litres O2.O2 saturation 98%.Patient says breathing better. No complaint of chest pain or shortness of breath - Patient Problems (1) Acute respiratory failure with hypoxia Current Visit: Yes Status: Acute Plan to address problem: Patient is on 2 litres O2. Albuterol/atrovent aerosol treatments q 6 hours. Continue I/V solumedral. Continue S/C Heparin. Continue Protonix. (2) NSTEMI (non-ST elevated myocardial infarction) Current Visit: Yes Status: Acute Plan to address problem: Management as per cardiology (3) Thrombocytopenia Current Visit: Yes Status: Acute Plan to address problem: Platelet count dropping ltest platelet count 89,000. (4) CKD (chronic kidney disease) stage 4, GFR 15-29 ml/min Current Visit: Yes Status: Chronic Plan to address problem: Management as per nephrology. Subjective Date of service: 11/16/16 Principal diagnosis: NSTEMI Interval history: Patient alert, awake and resting on 2 litres O2.O2 saturation 98%.Patient says breathing better. No complaint of chest pain or shortness of breath Objective Vital Signs - 12hr 11/16/16 11/16/16 11/16/16 08:44 08:54 08:58 Temperature 98.3 F Pulse Rate Pulse Rate [ 89 Anterior Bilateral Throughout] Respiratory 18 Rate Respiratory 18 Rate [Anterior Bilateral Throughout] Blood Pressure Blood Pressure 114/55 [Left Arm] O2 Sat by Pulse 100 97 Oximetry 11/16/16 11/16/16 11/16/16 09:01 09:10 10:30 Temperature Pulse Rate 81 Pulse Rate [ 86 Anterior Bilateral Throughout] Respiratory Rate Respiratory 18 Rate [Anterior Bilateral Throughout] Blood Pressure 121/59 Blood Pressure [Left Arm] O2 Sat by Pulse 97 Oximetry 11/16/16 11/16/16 11/16/16 10:45 10:55 11:00 Temperature 97.7 F Pulse Rate 81 81 81 Pulse Rate [ Anterior Bilateral Throughout] Respiratory 16 Rate Respiratory Rate [Anterior Bilateral Throughout] Blood Pressure 123/59 121/59 113/66 Blood Pressure [Left Arm] O2 Sat by Pulse Oximetry 11/16/16 11/16/16 11/16/16 11:15 11:30 11:45 Temperature Pulse Rate 88 93 H 94 H Pulse Rate [ Anterior Bilateral Throughout] Respiratory Rate Respiratory Rate [Anterior Bilateral Throughout] Blood Pressure 99/65 96/57 91/45 Blood Pressure [Left Arm] O2 Sat by Pulse Oximetry 11/16/16 11/16/16 11/16/16 12:00 12:15 12:30 Temperature Pulse Rate 88 85 83 Pulse Rate [ Anterior Bilateral Throughout] Respiratory Rate Respiratory Rate [Anterior Bilateral Throughout] Blood Pressure 94/53 107/62 122/63 Blood Pressure [Left Arm] O2 Sat by Pulse Oximetry 11/16/16 11/16/16 11/16/16 12:45 13:00 13:15 Temperature Pulse Rate 82 91 H 85 Pulse Rate [ Anterior Bilateral Throughout] Respiratory Rate Respiratory Rate [Anterior Bilateral Throughout] Blood Pressure 130/68 123/66 114/65 Blood Pressure [Left Arm] O2 Sat by Pulse Oximetry 11/16/16 11/16/16 11/16/16 13:30 13:45 14:00 Temperature 97.7 F Pulse Rate 88 90 88 Pulse Rate [ Anterior Bilateral Throughout] Respiratory 16 Rate Respiratory Rate [Anterior Bilateral Throughout] Blood Pressure 120/68 122/65 115/64 Blood Pressure [Left Arm] O2 Sat by Pulse Oximetry 11/16/16 11/16/16 11/16/16 16:21 16:25 17:27 Temperature 98.1 F 98.1 F 97.8 F Pulse Rate 86 86 95 H Pulse Rate [ Anterior Bilateral Throughout] Respiratory 14 14 14 Rate Respiratory Rate [Anterior Bilateral Throughout] Blood Pressure 168/84 168/84 98/45 Blood Pressure [Left Arm] O2 Sat by Pulse 99 99 95 Oximetry 11/16/16 11/16/16 17:42 17:56 Temperature Pulse Rate 92 H 95 H Pulse Rate [ Anterior Bilateral Throughout] Respiratory 12 10 L Rate Respiratory Rate [Anterior Bilateral Throughout] Blood Pressure 108/42 114/55 Blood Pressure [Left Arm] O2 Sat by Pulse 96 96 Oximetry Constitutional: no acute distress, alert Eyes: non-icteric ENT: oropharynx moist Neck: supple, no JVD Effort: normal Ascultation: Bilateral: diminished breath sounds, rales (basila) Cardiovascular: regular rate and rhythm Gastrointestinal: normoactive bowel sounds, soft, non-distended Integumentary: normal Extremities: no cyanosis, no edema, pink and warm, pulses normal, no ischemia or petechiae Neurologic: normal mental status, non-focal exam, CN II-XII normal Psychiatric: mood appropriate, affect normal CBC and BMP: 11/13/16 04:47 11/16/16 05:29 ABG, PT/INR, D-dimer: ABG POC ABG pH 7.371 (7.35-7.45) 11/07/16 18:14 POC ABG pCO2 27.0 (35-45) L 11/07/16 18:14 POC ABG pO2 124 (80-105) H 11/07/16 18:14 POC ABG HCO3 15.6 11/07/16 18:14 POC ABG Total CO2 16 11/07/16 18:14 POC ABG O2 Sat 99 11/07/16 18:14 PT/INR, D-dimer PT 14.8 Sec. (12.2-14.9) 11/13/16 04:47 INR 1.10 (0.87-1.13) 11/13/16 04:47 D-Dimer 1575.53 ng/mlDDU (0-234) H 11/07/16 16:35 Abnormal lab findings: Abnormal Labs 11/07/16 11/08/16 11/08/16 21:43 06:45 06:45 RBC 2.37 L Hgb 7.6 L Hct 23.3 L D MCV 98 H Plt Count Lymph % (Auto) 8.0 L Lymph # 0.5 L Seg Neutrophils % 89.2 H Seg Neuts % (Manual) Lymphocytes % (Manual) Seg Neutrophils # Man Lymphocytes # (Manual) Percent Retic PT INR APTT Heparin Anti-Xa Level Sodium Potassium Chloride Carbon Dioxide 17 L BUN 52 H Creatinine 3.3 H Glucose 263 H POC Glucose Calcium TIBC AST 164 H Total Creatine Kinase 1584 H CK-MB (CK-2) 268.6 H CK-MB (CK-2) Rel Index 16.9 H C-Reactive Protein Total Protein 5.6 L Albumin 2.5 L Urine WBC (Auto) U Epithel Cells (Auto) Urine Creatinine Urine Total Protein 11/08/16 11/08/16 11/08/16 06:45 12:04 12:04 RBC Hgb 8.0 L Hct 23.7 L MCV Plt Count Lymph % (Auto) Lymph # Seg Neutrophils % Seg Neuts % (Manual) Lymphocytes % (Manual) Seg Neutrophils # Man Lymphocytes # (Manual) Percent Retic PT 16.5 H INR 1.34 H APTT 38.5 H Heparin Anti-Xa Level Sodium Potassium Chloride Carbon Dioxide BUN Creatinine Glucose POC Glucose Calcium TIBC AST Total Creatine Kinase 1273 H CK-MB (CK-2) 182.7 H CK-MB (CK-2) Rel Index 14.3 H C-Reactive Protein Total Protein Albumin Urine WBC (Auto) U Epithel Cells (Auto) Urine Creatinine Urine Total Protein 11/08/16 11/08/16 11/08/16 13:56 13:56 17:09 RBC Hgb Hct MCV Plt Count Lymph % (Auto) Lymph # Seg Neutrophils % Seg Neuts % (Manual) Lymphocytes % (Manual) Seg Neutrophils # Man Lymphocytes # (Manual) Percent Retic PT INR APTT Heparin Anti-Xa Level Sodium Potassium Chloride Carbon Dioxide BUN Creatinine Glucose POC Glucose Calcium TIBC AST Total Creatine Kinase 947 H CK-MB (CK-2) 91.7 H CK-MB (CK-2) Rel Index 9.6 H C-Reactive Protein Total Protein Albumin Urine WBC (Auto) 25.0 H U Epithel Cells (Auto) 20.0 H Urine Creatinine 161.2 H Urine Total Protein 146 H 11/08/16 11/09/16 11/09/16 17:09 03:19 07:04 RBC Hgb 8.6 L Hct 26.1 L MCV Plt Count Lymph % (Auto) Lymph # Seg Neutrophils % Seg Neuts % (Manual) Lymphocytes % (Manual) Seg Neutrophils # Man Lymphocytes # (Manual) Percent Retic PT INR APTT Heparin Anti-Xa Level Sodium 135 L Potassium 5.7 H D Chloride Carbon Dioxide 15 L BUN 70 H Creatinine 5.0 H D Glucose 169 H POC Glucose Calcium 7.9 L TIBC AST Total Creatine Kinase CK-MB (CK-2) CK-MB (CK-2) Rel Index C-Reactive Protein 5.80 H Total Protein Albumin Urine WBC (Auto) U Epithel Cells (Auto) Urine Creatinine Urine Total Protein 11/09/16 11/10/16 11/10/16 21:00 04:32 07:16 RBC Hgb 8.4 L Hct 25.6 L MCV Plt Count 111 L Lymph % (Auto) Lymph # Seg Neutrophils % Seg Neuts % (Manual) Lymphocytes % (Manual) Seg Neutrophils # Man Lymphocytes # (Manual) Percent Retic PT INR APTT Heparin Anti-Xa Level 0.91 H 0.12 L Sodium Potassium Chloride Carbon Dioxide BUN Creatinine Glucose POC Glucose Calcium TIBC AST Total Creatine Kinase CK-MB (CK-2) CK-MB (CK-2) Rel Index C-Reactive Protein Total Protein Albumin Urine WBC (Auto) U Epithel Cells (Auto) Urine Creatinine Urine Total Protein 11/10/16 11/10/16 11/10/16 10:05 18:10 19:09 RBC Hgb Hct MCV Plt Count Lymph % (Auto) Lymph # Seg Neutrophils % Seg Neuts % (Manual) Lymphocytes % (Manual) Seg Neutrophils # Man Lymphocytes # (Manual) Percent Retic 4.37 H PT INR APTT Heparin Anti-Xa Level Sodium Potassium Chloride 97.2 L Carbon Dioxide BUN 62 H Creatinine 4.4 H Glucose 206 H POC Glucose Calcium 7.0 L TIBC 237 L AST Total Creatine Kinase CK-MB (CK-2) CK-MB (CK-2) Rel Index C-Reactive Protein Total Protein Albumin Urine WBC (Auto) U Epithel Cells (Auto) Urine Creatinine Urine Total Protein 11/13/16 11/13/16 11/13/16 04:47 04:47 05:48 RBC 2.82 L Hgb 9.1 L Hct 27.8 L MCV 99 H Plt Count 89 L Lymph % (Auto) Lymph # Seg Neutrophils % Seg Neuts % (Manual) 92.0 H Lymphocytes % (Manual) 5.0 L Seg Neutrophils # Man 7.8 H Lymphocytes # (Manual) 0.4 L Percent Retic PT INR APTT Heparin Anti-Xa Level Sodium Potassium Chloride 96.8 L Carbon Dioxide BUN 60 H Creatinine 3.6 H Glucose 175 H POC Glucose 174 H Calcium 7.1 L TIBC AST Total Creatine Kinase CK-MB (CK-2) CK-MB (CK-2) Rel Index C-Reactive Protein Total Protein Albumin Urine WBC (Auto) U Epithel Cells (Auto) Urine Creatinine Urine Total Protein 11/14/16 11/16/16 08:49 05:29 RBC Hgb Hct MCV Plt Count Lymph % (Auto) Lymph # Seg Neutrophils % Seg Neuts % (Manual) Lymphocytes % (Manual) Seg Neutrophils # Man Lymphocytes # (Manual) Percent Retic PT INR APTT Heparin Anti-Xa Level Sodium 136 L 132 L Potassium Chloride 94.4 L 90.7 L Carbon Dioxide 19 L BUN 92 H 136 H Creatinine 4.5 H 5.0 H Glucose 196 H 223 H POC Glucose Calcium 7.2 L 7.3 L TIBC AST Total Creatine Kinase CK-MB (CK-2) CK-MB (CK-2) Rel Index C-Reactive Protein Total Protein Albumin Urine WBC (Auto) U Epithel Cells (Auto) Urine Creatinine Urine Total Protein Allied health notes reviewed: RT
[2016-11-16] MEDS: SENOKOT S PO SCH (21:41)
--- NOTE | 2016-11-17 00:05 | Operative Report ---
PROCEDURE PERFORMED: Esophagogastroduodenoscopy as well as flexible sigmoidoscopy to the lower sigmoid colon. PREOPERATIVE DIAGNOSES: Anemia and heme-positive stool. POSTOPERATIVE DIAGNOSES: Mild gastritis, hemorrhoids, copious brown stool, no evidence of active bleeding. ENDOSCOPIST: Nehemiah De Santiago MD INSTRUMENT: [employer] video endoscope. MEDICATIONS: MAC anesthesia by [facility]. COMPLICATIONS: No apparent complications. ESTIMATED BLOOD LOSS: Minimal. SPECIMENS: None. IMPLANTS: None. TEXTILE DESIGNER: None. CONDITION AT COMPLETION: Stable. TECHNIQUE: The patient was informed of the risks and benefits of the procedure. She signed the informed consent to proceed. She was placed in a left lateral decubitus position. The above sedative medications were given. Her vital signs remained stable throughout the procedure. The instrument was advanced from the mouth to the second portion of the duodenum under direct visualization. At that point, the bowel was insufflated and the endoscope was slowly withdrawn. The bed was then rotated and the endoscope was advanced from the anus to the lower sigmoid colon, at which point solid stool was encountered and the endoscope was slowly withdrawn. FINDINGS: 1. No blood in upper or lower GI tract noted, with brown solid stool in the rectum and sigmoid. 2. Mild gastritis characterized by erythema in the stomach, there were no mucosal ulcerations and no evidence of varices. 3. Grade 1 internal hemorrhoids. 4. Solid stool in the rectum and lower sigmoid, but no mucosal lesions noted. RECOMMENDATIONS: 1. No lesions seen on the upper endoscopy or the sigmoidoscopy to preclude dual antiplatelet therapy or anticoagulation during a cardiac catheterization; however, the patient's comorbidities put her at significant risk for bleeding. 2. Continue daily Protonix. 3. High fiber daily and Senokot. JOB# [id number] RAJAT/NTS
[2016-11-17 06:12] LABS: Hematocrit 28.8 % (30.3-42.9); Hemoglobin 9.7 gm/dl (10.1-14.3); Mean Corpuscular HGB Conc 34 % (30-34); Mean Corpuscular Hemoglobin 33 pg (28-32); Mean Corpuscular Volume 98 fl (79-97); Platelet Count 105 K/mm3 (140-440); Red Blood Count 2.93 M/mm3 (3.65-5.03); Red Cell Distribution Width 15.5 % (13.2-15.2); White Blood Count 10.1 K/mm3 (4.5-11.0)
[2016-11-17 06:25] LABS: BUN/Creatinine Ratio 22.94; Calcium 7.5 mg/dL (8.4-10.2); Chloride 94.4 mmol/L (98-107); Potassium 4.6 mmol/L (3.6-5.0)
[2016-11-17] MEDS: DUONEB *Not for PRN Use IH SCH ×3 (08:04→20:51)
--- NOTE | 2016-11-17 09:06 | Gastroenterology Progress Note ---
Assessment and Plan - Patient Problems (1) Anemia Current Visit: Yes Status: Acute Qualifiers: Anemia type: A Iron deficiency anemia type: I Vitamin B12 deficiency anemia type: V Folate deficiency anemia type: F Bone marrow failure anemia type: B Hemolytic anemia type: H Other causes of anemia: O Chronic kidney disease stage: C Plan to address problem: - Colon 2014 with small polyps; EGD/Flex 2016 with mild non-erosive gastritis and hemorrhoids. - No contraindication to proceeding to cardiac cath/DAPT at present. - Monitor for bleeding; continue protonix long-term. - Will sign off; please call if needed. Subjective Date of service: 11/17/16 Principal diagnosis: Anemia Interval history: The patient reports no problems after EGD/Flex yesterday. No blood with her stools, and no N/V/hematemesis. Denies CP and waiting for cardiac procedure today. Objective - Constitutional Vitals: Temp Pulse Resp BP Pulse Ox 98.5 F 88 18 100/55 98 11/17/16 08:43 11/17/16 08:43 11/17/16 08:43 11/17/16 08:43 11/17/16 08:43 General appearance: no acute distress - EENT Eyes: PERRL, EOM intact - Respiratory Respiratory effort: normal Respiratory: bilateral: CTA - Cardiovascular Rhythm: regular Heart Sounds: Present: S1 & S2 - Gastrointestinal General gastrointestinal: Present: soft, non-tender, non-distended - Labs CBC & Chem 7: 11/17/16 05:42 11/17/16 05:42 Labs: Laboratory Results - last 24 hr 11/16/16 11/17/16 11/17/16 16:38 05:42 05:42 WBC 10.1 RBC 2.93 L Hgb 9.7 L Hct 28.8 L MCV 98 H MCH 33 H MCHC 34 RDW 15.5 H Plt Count 105 L Sodium 136 L Potassium 4.6 Chloride 94.4 L Carbon Dioxide 23 Anion Gap 23 BUN 78 H Creatinine 3.4 H Estimated GFR 16 BUN/Creatinine Ratio 22.94 Glucose 204 H POC Glucose 143 H Calcium 7.5 L
[2016-11-17] MEDS: APRESOLINE PO SCH ×3 (09:45→20:50)
[2016-11-17] MEDS: IMDUR PO SCH (09:46)
[2016-11-17] MEDS: COREG PO SCH ×2 (09:46→22:37)
[2016-11-17] MEDS: NORVASC PO SCH (09:46)
[2016-11-17] MEDS: ZESTRIL PO SCH (09:47)
[2016-11-17] MEDS: OYSCO D 500 MG-200 UNIT PO SCH (09:54)
[2016-11-17] MEDS: NAMENDA XR PO SCH (09:54)
[2016-11-17] MEDS: PROTONIX PO SCH (09:54)
[2016-11-17] MEDS: BABY ASPIRIN PO SCH (09:54)
--- NOTE | 2016-11-17 11:22 | Progress Note ---
Assessment and Plan Renal failure initiated on dialysis this admission Acute decompensated systolic heart failure Anemia EGD/Flex this admission reports mild non-erosive gastritis and hemorrhoids. No contraindication to proceeding with cardiac cath/DAPT at present per GI Thrombocytopenia NSTEMI [facility] this admission reports a 80% proximal OM2, 60-70% mid LAD, severe diffuse disease of a small distal RCA with left to right collaterals. Severe Cardiomyopathy LVEF 10-15% on echocardiogram Moderate to severe mitral regurgitation Prior CVA Hypertension Plan: Continue to monitor H&H. If no further bleeding and if HCT remains stable, we will then proceed with coronary intervention on . Subjective Date of service: 11/17/16 Principal diagnosis: Anemia Interval history: Patient is resting in bed comfortably. She denies chest pain and shortness of breath. Objective Vital Signs Temp Pulse Pulse Pulse Resp Resp BP 11/17/16 10:43 73 11/17/16 09:46 82 100/55 11/17/16 09:45 82 100/55 11/17/16 08:43 98.5 F 88 18 11/17/16 08:05 82 17 11/17/16 08:00 83 18 11/17/16 06:09 98.7 F 88 20 11/17/16 04:50 98.7 F 20 11/17/16 00:50 98.5 F 20 11/17/16 00:00 88 18 11/16/16 22:20 20 11/16/16 22:00 80 11/16/16 21:41 100 H 137/77 11/16/16 20:40 98.4 F 20 11/16/16 20:09 88 18 11/16/16 19:57 11/16/16 19:56 86 18 11/16/16 17:56 95 H 10 L 114/55 11/16/16 17:42 92 H 12 108/42 11/16/16 17:27 97.8 F 95 H 14 98/45 11/16/16 16:25 98.1 F 86 14 168/84 11/16/16 16:21 98.1 F 86 14 168/84 11/16/16 14:00 97.7 F 88 16 115/64 11/16/16 13:45 90 122/65 11/16/16 13:30 88 120/68 11/16/16 13:15 85 114/65 11/16/16 13:00 91 H 123/66 11/16/16 12:45 82 130/68 11/16/16 12:30 83 122/63 11/16/16 12:15 85 107/62 11/16/16 12:00 88 94/53 11/16/16 11:45 94 H 91/45 11/16/16 11:30 93 H 96/57 BP Pulse Ox 11/17/16 10:43 11/17/16 09:46 11/17/16 09:45 11/17/16 08:43 100/55 98 11/17/16 08:05 98 11/17/16 08:00 11/17/16 06:09 93/52 96 11/17/16 04:50 93/52 96 11/17/16 00:50 130/66 98 11/17/16 00:00 99 11/16/16 22:20 11/16/16 22:00 11/16/16 21:41 11/16/16 20:40 133/77 98 11/16/16 20:09 11/16/16 19:57 99 11/16/16 19:56 11/16/16 17:56 96 11/16/16 17:42 96 11/16/16 17:27 95 11/16/16 16:25 99 11/16/16 16:21 99 11/16/16 14:00 11/16/16 13:45 11/16/16 13:30 11/16/16 13:15 11/16/16 13:00 11/16/16 12:45 11/16/16 12:30 11/16/16 12:15 11/16/16 12:00 11/16/16 11:45 11/16/16 11:30 - Physical Examination General: No Apparent Distress HEENT: Positive: PERRL Neck: Positive: trachea midline Cardiac: Positive: Reg Rate and Rhythm Lungs: Positive: Decreased Breath Sounds - Labs and Meds CBC 11/17/16 Range/Units 05:42 WBC 10.1 (4.5-11.0) K/mm3 RBC 2.93 L (3.65-5.03) M/mm3 Hgb 9.7 L (10.1-14.3) gm/dl Hct 28.8 L (30.3-42.9) % Plt Count 105 L (140-440) K/mm3 Comprehensive Metabolic Panel 11/17/16 Range/Units 05:42 Sodium 136 L (137-145) mmol/L Potassium 4.6 (3.6-5.0) mmol/L Chloride 94.4 L (98-107) mmol/L Carbon Dioxide 23 (22-30) mmol/L BUN 78 H (7-17) mg/dL Creatinine 3.4 H (0.7-1.2) mg/dL Glucose 204 H (65-100) mg/dL Calcium 7.5 L (8.4-10.2) mg/dL - Imaging and Cardiology EKG: report reviewed (Sinus Tach pvc's LVH 119/min Repolarization abnormalities) - Allied health notes Allied health notes reviewed: RT
--- NOTE | 2016-11-17 12:22 | Progress Note ---
Assessment and Plan Assessment and plan: NATHALIA vs CKD. Patient initiated on dialysis this admission. Currently with Wednesday, Wednesday and Wednesday schedule. Renal ultrasound showing no hydronephrosis. Valsartan and Lasix have been discontinued. Acute decompensated systolic heart failure. Continue hemodialysis as above for volume control. Cardiology following. Anemia. EGD/Flex this admission reports mild non-erosive gastritis and hemorrhoids. GI following. GI reports no contraindication to proceeding to cardiac cath/DAPT at present. Thrombocytopenia. Follow-up CBC. NSTEMI. [facility] this admission reports a 80% proximal OM2, 60-70% mid LAD, severe diffuse disease of a small distal RCA with left to right collaterals. Severe Cardiomyopathy. LVEF 10-15% on echocardiogram. Moderate to severe mitral regurgitation hx CVA Hypertension History Interval history: No new issues overnight. Hospitalist Physical - Constitutional Vitals: Temp Pulse Resp BP Pulse Ox 98.5 F 73 18 100/55 98 11/17/16 08:43 11/17/16 10:43 11/17/16 08:43 11/17/16 09:46 11/17/16 08:43 General appearance: Present: no acute distress, well-nourished - EENT Eyes: Present: PERRL, EOM intact ENT: hearing intact, clear oral mucosa, dentition normal - Neck Neck: Present: supple, normal ROM - Respiratory Respiratory effort: normal Respiratory: bilateral: CTA - Cardiovascular Rhythm: regular Heart Sounds: Present: S1 & S2. Absent: gallop, rub - Extremities Extremities: no ischemia, No edema, Full ROM - Abdominal General gastrointestinal: soft, non-tender, non-distended, normal bowel sounds - Integumentary Integumentary: Present: clear, warm, dry - Neurologic Neurologic: CNII-XII intact, moves all extremities Results - Labs CBC & Chem 7: 11/17/16 05:42 11/17/16 05:42 Labs: Laboratory Last Values WBC 10.1 K/mm3 (4.5-11.0) 11/17/16 05:42 RBC 2.93 M/mm3 (3.65-5.03) L 11/17/16 05:42 Hgb 9.7 gm/dl (10.1-14.3) L 11/17/16 05:42 Hct 28.8 % (30.3-42.9) L 11/17/16 05:42 MCV 98 fl (79-97) H 11/17/16 05:42 MCH 33 pg (28-32) H 11/17/16 05:42 MCHC 34 % (30-34) 11/17/16 05:42 RDW 15.5 % (13.2-15.2) H 11/17/16 05:42 Plt Count 105 K/mm3 (140-440) L 11/17/16 05:42 Lymph % (Auto) 8.0 % (13.4-35.0) L 11/08/16 06:45 [place] % (Auto) 2.7 % (0.0-7.3) 11/08/16 06:45 Eos % (Auto) 0.0 % (0.0-4.3) 11/08/16 06:45 Baso % (Auto) 0.1 % (0.0-1.8) 11/08/16 06:45 Lymph # 0.5 K/mm3 (1.2-5.4) L 11/08/16 06:45 [place] # 0.1 K/mm3 (0.0-0.8) 11/08/16 06:45 Eos # 0.0 K/mm3 (0.0-0.4) 11/08/16 06:45 Baso # 0.0 K/mm3 (0.0-0.1) 11/08/16 06:45 Add Manual Diff Complete 11/13/16 04:47 Total Counted 100 11/13/16 04:47 Seg Neutrophils % Hay Sorter 11/13/16 04:47 Seg Neuts % (Manual) 92.0 % (40.0-70.0) H 11/13/16 04:47 Band Neutrophils % 0 % 11/13/16 04:47 Lymphocytes % (Manual) 5.0 % (13.4-35.0) L 11/13/16 04:47 Reactive Lymphs % (Man) 0 % 11/13/16 04:47 Monocytes % (Manual) 3.0 % (0.0-7.3) 11/13/16 04:47 Eosinophils % (Manual) 0 % (0.0-4.3) 11/13/16 04:47 Basophils % (Manual) 0 % (0.0-1.8) 11/13/16 04:47 Metamyelocytes % 0 % 11/13/16 04:47 Myelocytes % 0 % 11/13/16 04:47 Promyelocytes % 0 % 11/13/16 04:47 Blast Cells % 0 % 11/13/16 04:47 Nucleated RBC % Not Reportable 11/13/16 04:47 Seg Neutrophils # 5.0 K/mm3 (1.8-7.7) 11/08/16 06:45 Seg Neutrophils # Man 7.8 K/mm3 (1.8-7.7) H 11/13/16 04:47 Band Neutrophils # 0.0 K/mm3 11/13/16 04:47 Lymphocytes # (Manual) 0.4 K/mm3 (1.2-5.4) L 11/13/16 04:47 Abs React Lymphs (Man) 0.0 K/mm3 11/13/16 04:47 Monocytes # (Manual) 0.3 K/mm3 (0.0-0.8) 11/13/16 04:47 Eosinophils # (Manual) 0.0 K/mm3 (0.0-0.4) 11/13/16 04:47 Basophils # (Manual) 0.0 K/mm3 (0.0-0.1) 11/13/16 04:47 Metamyelocytes # 0.0 K/mm3 11/13/16 04:47 Myelocytes # 0.0 K/mm3 11/13/16 04:47 Promyelocytes # 0.0 K/mm3 11/13/16 04:47 Blast Cells # 0.0 K/mm3 11/13/16 04:47 WBC Morphology Not Reportable 11/13/16 04:47 Hypersegmented Neuts Not Reportable 11/13/16 04:47 Hyposegmented Neuts Not Reportable 11/13/16 04:47 Hypogranular Neuts Not Reportable 11/13/16 04:47 Smudge Cells Not Reportable 11/13/16 04:47 Toxic Granulation Not Reportable 11/13/16 04:47 Toxic Vacuolation Not Reportable 11/13/16 04:47 Dohle Bodies Not Reportable 11/13/16 04:47 Pelger-Huet Anomaly Not Reportable 11/13/16 04:47 Tamanna Rods Not Reportable 11/13/16 04:47 Platelet Estimate Consistent w auto 11/13/16 04:47 Clumped Platelets Not Reportable 11/13/16 04:47 Plt Clumps, EDTA Not Reportable 11/13/16 04:47 Large Platelets Not Reportable 11/13/16 04:47 Giant Platelets Not Reportable 11/13/16 04:47 Platelet Satelliting Not Reportable 11/13/16 04:47 Plt Morphology Comment Not Reportable 11/13/16 04:47 RBC Morphology Not Reportable 11/13/16 04:47 Dimorphic RBCs Not Reportable 11/13/16 04:47 Polychromasia Rare 11/13/16 04:47 Hypochromasia Not Reportable 11/13/16 04:47 Poikilocytosis Not Reportable 11/13/16 04:47 Anisocytosis 1+ 11/13/16 04:47 Microcytosis Not Reportable 11/13/16 04:47 Macrocytosis Not Reportable 11/13/16 04:47 Spherocytes Not Reportable 11/13/16 04:47 Pappenheimer Bodies Not Reportable 11/13/16 04:47 Sickle Cells Not Reportable 11/13/16 04:47 Target Cells Not Reportable 11/13/16 04:47 Tear Drop Cells Not Reportable 11/13/16 04:47 Ovalocytes Not Reportable 11/13/16 04:47 Helmet Cells Not Reportable 11/13/16 04:47 [place] Bodies Not Reportable 11/13/16 04:47 [place] Rings Not Reportable 11/13/16 04:47 [place] Cells Not Reportable 11/13/16 04:47 Bite Cells Not Reportable 11/13/16 04:47 Crenated Cell Not Reportable 11/13/16 04:47 Elliptocytes Not Reportable 11/13/16 04:47 Acanthocytes (Spur) Not Reportable 11/13/16 04:47 Rouleaux Not Reportable 11/13/16 04:47 Hemoglobin C Crystals Not Reportable 11/13/16 04:47 Schistocytes Not Reportable 11/13/16 04:47 Malaria parasites Not Reportable 11/13/16 04:47 Percent Retic 4.37 % (0.78-2.58) H 11/10/16 19:09 Javi Bodies Not Reportable 11/13/16 04:47 Hem Pathologist Commnt No 11/13/16 04:47 PT 14.8 Sec. (12.2-14.9) 11/13/16 04:47 INR 1.10 (0.87-1.13) 11/13/16 04:47 APTT 38.5 Sec. (24.2-36.6) H 11/08/16 12:04 D-Dimer 1575.53 ng/mlDDU (0-234) H 11/07/16 16:35 Heparin Anti-Xa Level 0.12 U.I./ml (0.3-0.7) L 11/10/16 07:16 POC ABG pH 7.371 (7.35-7.45) 11/07/16 18:14 POC ABG pCO2 27.0 (35-45) L 11/07/16 18:14 POC ABG pO2 124 (80-105) H 11/07/16 18:14 POC ABG HCO3 15.6 11/07/16 18:14 POC ABG Total CO2 16 11/07/16 18:14 POC ABG O2 Sat 99 11/07/16 18:14 POC ABG Base Excess -10 11/07/16 18:14 FiO2 35 % 11/07/16 18:14 Sodium 136 mmol/L (137-145) L 11/17/16 05:42 Potassium 4.6 mmol/L (3.6-5.0) 11/17/16 05:42 Chloride 94.4 mmol/L (98-107) L 11/17/16 05:42 Carbon Dioxide 23 mmol/L (22-30) 11/17/16 05:42 Anion Gap 23 mmol/L 11/17/16 05:42 BUN 78 mg/dL (7-17) H 11/17/16 05:42 Creatinine 3.4 mg/dL (0.7-1.2) H 11/17/16 05:42 Estimated GFR 16 ml/min 11/17/16 05:42 BUN/Creatinine Ratio 22.94 % 11/17/16 05:42 Glucose 204 mg/dL (65-100) H 11/17/16 05:42 POC Glucose 143 (70-105) H 11/16/16 16:38 Hemoglobin A1c 4.8 % (4-6) 11/07/16 16:35 Lactic Acid 1.10 mmol/L (0.7-2.0) 11/09/16 03:19 Calcium 7.5 mg/dL (8.4-10.2) L 11/17/16 05:42 Iron 70 ug/dL (37-170) 11/10/16 18:10 TIBC 237 mcg/dL (250-450) L 11/10/16 18:10 Ferritin 211.2 ng/mL (13.0-400.0) 11/10/16 18:10 Total Bilirubin 0.40 mg/dL (0.1-1.2) 11/08/16 06:45 AST 164 units/L (5-40) H 11/08/16 06:45 ALT 47 units/L (7-56) 11/08/16 06:45 Alkaline Phosphatase 89 units/L (35-129) 11/08/16 06:45 Total Creatine Kinase 947 units/L (30-135) H 11/08/16 17:09 CK-MB (CK-2) 91.7 ng/mL (0.0-4.0) H 11/08/16 17:09 CK-MB (CK-2) Rel Index 9.6 (0-4) H 11/08/16 17:09 Troponin T 6.920 ng/mL (0.00-0.029) H* 11/07/16 18:36 C-Reactive Protein 5.80 mg/dL (0.00-1.30) H 11/08/16 17:09 NT-Pro-B Natriuret Pep 06197 pg/mL (0-900) H 11/07/16 16:35 Total Protein 5.6 g/dL (6.3-8.2) L 11/08/16 06:45 Albumin 2.5 g/dL (3.9-5) L 11/08/16 06:45 Albumin/Globulin Ratio 0.8 % 11/08/16 06:45 Triglycerides 69 mg/dL (2-149) 11/07/16 16:35 Cholesterol 129 mg/dL (50-199) 11/07/16 16:35 LDL Cholesterol Direct 56 mg/dL (50-130) 11/07/16 16:35 HDL Cholesterol 60 mg/dL (40-59) H 11/07/16 16:35 Cholesterol/HDL Ratio 2.15 % 11/07/16 16:35 TSH 4.120 mlU/mL (0.270-4.200) 11/09/16 15:38 Urine Color Yellow (Yellow) 11/08/16 13:56 Urine Turbidity Cloudy (Clear) 11/08/16 13:56 Urine pH 5.0 (5.0-7.0) 11/08/16 13:56 Ur Specific Gilbert 1.013 (1.003-1.030) 11/08/16 13:56 Urine Protein 100 mg/dl mg/dL (Negative) 11/08/16 13:56 Urine Glucose (UA) Neg mg/dL (Negative) 11/08/16 13:56 Urine Ketones Neg mg/dL (Negative) 11/08/16 13:56 Urine Blood Lg (Negative) 11/08/16 13:56 Urine Nitrite Neg (Negative) 11/08/16 13:56 Urine Bilirubin Neg (Negative) 11/08/16 13:56 Urine Urobilinogen < 2.0 mg/dL (<2.0) 11/08/16 13:56 Ur Leukocyte Esterase Mod (Negative) 11/08/16 13:56 Urine WBC (Auto) 25.0 /HPF (0.0-6.0) H 11/08/16 13:56 Urine RBC (Auto) > 182.0 /HPF (0.0-6.0) 11/08/16 13:56 U Epithel Cells (Auto) 20.0 /HPF (0-13.0) H 11/08/16 13:56 Urine WBC Clumps Few /HPF 11/08/16 13:56 Ur Transition Epith Cell 2 /HPF 11/08/16 13:56 Urine Creatinine 161.2 mg/dL (0.1-20.0) H 11/08/16 13:56 Protein/Creatinin Ratio 0.91 11/08/16 13:56 Urine Total Protein 146 mg/dL (5-11.8) H 11/08/16 13:56 Hep Bs Antigen Non-reactive (Negative) 11/10/16 04:32 Hepatitis C Antibody Non-reactive (NonReactive) 11/10/16 04:32
[2016-11-17] MEDS ORDERED: PLAVIX PO ONE (14:00)
--- NOTE | 2016-11-17 17:56 | Progress Note ---
Assessment and Plan (1) NATHALIA vs CKD, Baseline unavailable, CRS, now requiring dialysis Current Visit: Yes Status: Acute Plan to address problem: HD on MWF schedule Renal U/S reviewed. No hydronephrosis Avoid nephrotoxics Valsartan and Lasix have been d/asher Monitor for renal recovery Out patient dialysis placement at [facility] in process (2) Acute systolic congestive herat failure Current Visit: Yes Status: Acute Plan to address problem: UF on dialysis Strict I/Os 2D echo report reviewed. It showed EF of 10-15 % She is scheduled for cardiac cath this week (3) NSTEMI (non-ST elevated myocardial infarction) Current Visit: Yes Status: Acute Plan to address problem: Management per Cardio She is scheduled for cardiac cath this week (4) Acute hypoxic respiratory failure (Pneumonia /pulmonary edema) Current Visit: Yes Status: Acute improved with dialysis fluid removal (5) Essential HTN (hypertension) Current Visit: Yes Status: Chronic Qualifiers: Hypertension type: essential hypertension Qualified Code(s): I10 - Essential (primary) hypertension Plan to address problem: Stable. (6) GI bleeding Current Visit: Yes Status: Acute EGD today (7) Dementia Current Visit: Yes Status: Chronic Qualifiers: Dementia type: vascular dementia Alzheimer's disease onset: A Dementia behavioral disturbance: D Plan to address problem: Cont Namenda Subjective Date of service: 11/17/16 Principal diagnosis: Anemia Interval history: NO new complaints Objective - Exam Narrative Exam: General appearance: well-developed, well-nourished, appears stated age, no distress EENT: PERRL, mucous membranes moist Neck: Present: neck supple, trachea midline. Absent: JVD/HJR, Masses Respiratory: Decreased Breath Sounds, scattered wheezes Heart: regular, normal heart rate, S1S2, no murmurs Gastrointestinal: Present: normoactive bowel sounds. Absent: tenderness Integumentary: no rash, warm and dry Neurologic: no focal deficit, alert and oriented x3, gait normal, strength 5/5 Musculoskeletal: Absent: deformities, joint swelling Psychiatric: mood/affect appropriate, cooperative - Vital Signs Vital signs: Vital Signs - 12hr 11/17/16 11/17/16 11/17/16 06:09 08:00 08:05 Temperature 98.7 F Pulse Rate Pulse Rate [ 83 82 Anterior Bilateral Throughout] Pulse Rate [ 88 Right Radial] Respiratory 20 Rate Respiratory 18 17 Rate [Anterior Bilateral Throughout] Blood Pressure Blood Pressure 93/52 [Left Arm] O2 Sat by Pulse 96 98 Oximetry 11/17/16 11/17/16 11/17/16 08:43 09:45 09:46 Temperature 98.5 F Pulse Rate 82 82 Pulse Rate [ Anterior Bilateral Throughout] Pulse Rate [ 88 Right Radial] Respiratory 18 Rate Respiratory Rate [Anterior Bilateral Throughout] Blood Pressure 100/55 100/55 Blood Pressure 100/55 [Left Arm] O2 Sat by Pulse 98 Oximetry 11/17/16 11/17/16 11/17/16 10:43 13:31 13:32 Temperature Pulse Rate Pulse Rate [ 84 83 Anterior Bilateral Throughout] Pulse Rate [ 73 Right Radial] Respiratory Rate Respiratory 17 18 Rate [Anterior Bilateral Throughout] Blood Pressure Blood Pressure [Left Arm] O2 Sat by Pulse Oximetry - Lab 11/17/16 05:42 11/17/16 05:42 Most recent lab results Calcium 7.5 mg/dL (8.4-10.2) L 11/17/16 05:42 Urine Creatinine 161.2 mg/dL (0.1-20.0) H 11/08/16 13:56 Urine Total Protein 146 mg/dL (5-11.8) H 11/08/16 13:56
--- NOTE | 2016-11-17 19:30 | Progress Note ---
Assessment and Plan Patient alert, awake and resting on 2 litres O2.O2 saturation 99%.Patient says breathing better. No complaint of chest pain or shortness of breath - Patient Problems (1) Acute respiratory failure with hypoxia Current Visit: Yes Status: Acute Plan to address problem: Patient is on 2 litres O2. Albuterol/atrovent aerosol treatments q 6 hours. Continue I/V solumedral. Continue S/C Heparin. Continue Protonix. (2) NSTEMI (non-ST elevated myocardial infarction) Current Visit: Yes Status: Acute Plan to address problem: Management as per cardiology (3) Thrombocytopenia Current Visit: Yes Status: Acute Plan to address problem: Platelet count dropping ltest platelet count [id number]. (4) CKD (chronic kidney disease) stage 4, GFR 15-29 ml/min Current Visit: Yes Status: Chronic Plan to address problem: Management as per nephrology. Subjective Date of service: 11/17/16 Principal diagnosis: Anemia Interval history: Patient alert, awake and resting on 2 litres O2.O2 saturation 99%.Patient says breathing better. No complaint of chest pain or shortness of breath Objective Vital Signs - 12hr 11/17/16 11/17/16 11/17/16 08:00 08:05 08:43 Temperature 98.5 F Pulse Rate Pulse Rate [ 83 82 Anterior Bilateral Throughout] Pulse Rate [ 88 Right Radial] Respiratory 18 Rate Respiratory 18 17 Rate [Anterior Bilateral Throughout] Blood Pressure Blood Pressure 100/55 [Left Arm] O2 Sat by Pulse 98 98 Oximetry 11/17/16 11/17/16 11/17/16 09:45 09:46 10:43 Temperature Pulse Rate 82 82 Pulse Rate [ Anterior Bilateral Throughout] Pulse Rate [ 73 Right Radial] Respiratory Rate Respiratory Rate [Anterior Bilateral Throughout] Blood Pressure 100/55 100/55 Blood Pressure [Left Arm] O2 Sat by Pulse Oximetry 11/17/16 11/17/16 11/17/16 13:31 13:32 18:01 Temperature 98.6 F Pulse Rate Pulse Rate [ 84 83 Anterior Bilateral Throughout] Pulse Rate [ 79 Right Radial] Respiratory 18 Rate Respiratory 17 18 Rate [Anterior Bilateral Throughout] Blood Pressure Blood Pressure 115/56 [Left Arm] O2 Sat by Pulse 98 Oximetry 11/17/16 11/17/16 18:14 18:57 Temperature Pulse Rate 86 84 Pulse Rate [ Anterior Bilateral Throughout] Pulse Rate [ Right Radial] Respiratory Rate Respiratory Rate [Anterior Bilateral Throughout] Blood Pressure 115/56 Blood Pressure [Left Arm] O2 Sat by Pulse Oximetry Constitutional: no acute distress, alert Eyes: non-icteric ENT: oropharynx moist Neck: supple, no JVD Effort: normal Ascultation: Bilateral: diminished breath sounds, rales (basila) Cardiovascular: regular rate and rhythm Gastrointestinal: normoactive bowel sounds, soft, non-distended Integumentary: normal Extremities: no cyanosis, no edema, pink and warm, pulses normal, no ischemia or petechiae Neurologic: normal mental status, non-focal exam, CN II-XII normal Psychiatric: mood appropriate, affect normal CBC and BMP: 11/17/16 05:42 11/17/16 05:42 ABG, PT/INR, D-dimer: ABG POC ABG pH 7.371 (7.35-7.45) 11/07/16 18:14 POC ABG pCO2 27.0 (35-45) L 11/07/16 18:14 POC ABG pO2 124 (80-105) H 11/07/16 18:14 POC ABG HCO3 15.6 11/07/16 18:14 POC ABG Total CO2 16 11/07/16 18:14 POC ABG O2 Sat 99 11/07/16 18:14 PT/INR, D-dimer PT 14.8 Sec. (12.2-14.9) 11/13/16 04:47 INR 1.10 (0.87-1.13) 11/13/16 04:47 D-Dimer 1575.53 ng/mlDDU (0-234) H 11/07/16 16:35 Abnormal lab findings: Abnormal Labs 11/07/16 11/08/16 11/08/16 21:43 06:45 06:45 RBC 2.37 L Hgb 7.6 L Hct 23.3 L D MCV 98 H MCH RDW Plt Count Lymph % (Auto) 8.0 L Lymph # 0.5 L Seg Neutrophils % 89.2 H Seg Neuts % (Manual) Lymphocytes % (Manual) Seg Neutrophils # Man Lymphocytes # (Manual) Percent Retic PT INR APTT Heparin Anti-Xa Level Sodium Potassium Chloride Carbon Dioxide 17 L BUN 52 H Creatinine 3.3 H Glucose 263 H POC Glucose Calcium TIBC AST 164 H Total Creatine Kinase 1584 H CK-MB (CK-2) 268.6 H CK-MB (CK-2) Rel Index 16.9 H C-Reactive Protein Total Protein 5.6 L Albumin 2.5 L Urine WBC (Auto) U Epithel Cells (Auto) Urine Creatinine Urine Total Protein 11/08/16 11/08/16 11/08/16 06:45 12:04 12:04 RBC Hgb 8.0 L Hct 23.7 L MCV MCH RDW Plt Count Lymph % (Auto) Lymph # Seg Neutrophils % Seg Neuts % (Manual) Lymphocytes % (Manual) Seg Neutrophils # Man Lymphocytes # (Manual) Percent Retic PT 16.5 H INR 1.34 H APTT 38.5 H Heparin Anti-Xa Level Sodium Potassium Chloride Carbon Dioxide BUN Creatinine Glucose POC Glucose Calcium TIBC AST Total Creatine Kinase 1273 H CK-MB (CK-2) 182.7 H CK-MB (CK-2) Rel Index 14.3 H C-Reactive Protein Total Protein Albumin Urine WBC (Auto) U Epithel Cells (Auto) Urine Creatinine Urine Total Protein 11/08/16 11/08/16 11/08/16 13:56 13:56 17:09 RBC Hgb Hct MCV MCH RDW Plt Count Lymph % (Auto) Lymph # Seg Neutrophils % Seg Neuts % (Manual) Lymphocytes % (Manual) Seg Neutrophils # Man Lymphocytes # (Manual) Percent Retic PT INR APTT Heparin Anti-Xa Level Sodium Potassium Chloride Carbon Dioxide BUN Creatinine Glucose POC Glucose Calcium TIBC AST Total Creatine Kinase 947 H CK-MB (CK-2) 91.7 H CK-MB (CK-2) Rel Index 9.6 H C-Reactive Protein Total Protein Albumin Urine WBC (Auto) 25.0 H U Epithel Cells (Auto) 20.0 H Urine Creatinine 161.2 H Urine Total Protein 146 H 11/08/16 11/09/16 11/09/16 17:09 03:19 07:04 RBC Hgb 8.6 L Hct 26.1 L MCV MCH RDW Plt Count Lymph % (Auto) Lymph # Seg Neutrophils % Seg Neuts % (Manual) Lymphocytes % (Manual) Seg Neutrophils # Man Lymphocytes # (Manual) Percent Retic PT INR APTT Heparin Anti-Xa Level Sodium 135 L Potassium 5.7 H D Chloride Carbon Dioxide 15 L BUN 70 H Creatinine 5.0 H D Glucose 169 H POC Glucose Calcium 7.9 L TIBC AST Total Creatine Kinase CK-MB (CK-2) CK-MB (CK-2) Rel Index C-Reactive Protein 5.80 H Total Protein Albumin Urine WBC (Auto) U Epithel Cells (Auto) Urine Creatinine Urine Total Protein 11/09/16 11/10/16 11/10/16 21:00 04:32 07:16 RBC Hgb 8.4 L Hct 25.6 L MCV MCH RDW Plt Count 111 L Lymph % (Auto) Lymph # Seg Neutrophils % Seg Neuts % (Manual) Lymphocytes % (Manual) Seg Neutrophils # Man Lymphocytes # (Manual) Percent Retic PT INR APTT Heparin Anti-Xa Level 0.91 H 0.12 L Sodium Potassium Chloride Carbon Dioxide BUN Creatinine Glucose POC Glucose Calcium TIBC AST Total Creatine Kinase CK-MB (CK-2) CK-MB (CK-2) Rel Index C-Reactive Protein Total Protein Albumin Urine WBC (Auto) U Epithel Cells (Auto) Urine Creatinine Urine Total Protein 11/10/16 11/10/16 11/10/16 10:05 18:10 19:09 RBC Hgb Hct MCV MCH RDW Plt Count Lymph % (Auto) Lymph # Seg Neutrophils % Seg Neuts % (Manual) Lymphocytes % (Manual) Seg Neutrophils # Man Lymphocytes # (Manual) Percent Retic 4.37 H PT INR APTT Heparin Anti-Xa Level Sodium Potassium Chloride 97.2 L Carbon Dioxide BUN 62 H Creatinine 4.4 H Glucose 206 H POC Glucose Calcium 7.0 L TIBC 237 L AST Total Creatine Kinase CK-MB (CK-2) CK-MB (CK-2) Rel Index C-Reactive Protein Total Protein Albumin Urine WBC (Auto) U Epithel Cells (Auto) Urine Creatinine Urine Total Protein 11/13/16 11/13/16 11/13/16 04:47 04:47 05:48 RBC 2.82 L Hgb 9.1 L Hct 27.8 L MCV 99 H MCH RDW Plt Count 89 L Lymph % (Auto) Lymph # Seg Neutrophils % Seg Neuts % (Manual) 92.0 H Lymphocytes % (Manual) 5.0 L Seg Neutrophils # Man 7.8 H Lymphocytes # (Manual) 0.4 L Percent Retic PT INR APTT Heparin Anti-Xa Level Sodium Potassium Chloride 96.8 L Carbon Dioxide BUN 60 H Creatinine 3.6 H Glucose 175 H POC Glucose 174 H Calcium 7.1 L TIBC AST Total Creatine Kinase CK-MB (CK-2) CK-MB (CK-2) Rel Index C-Reactive Protein Total Protein Albumin Urine WBC (Auto) U Epithel Cells (Auto) Urine Creatinine Urine Total Protein 11/14/16 11/16/16 11/16/16 08:49 05:29 16:38 RBC Hgb Hct MCV MCH RDW Plt Count Lymph % (Auto) Lymph # Seg Neutrophils % Seg Neuts % (Manual) Lymphocytes % (Manual) Seg Neutrophils # Man Lymphocytes # (Manual) Percent Retic PT INR APTT Heparin Anti-Xa Level Sodium 136 L 132 L Potassium Chloride 94.4 L 90.7 L Carbon Dioxide 19 L BUN 92 H 136 H Creatinine 4.5 H 5.0 H Glucose 196 H 223 H POC Glucose 143 H Calcium 7.2 L 7.3 L TIBC AST Total Creatine Kinase CK-MB (CK-2) CK-MB (CK-2) Rel Index C-Reactive Protein Total Protein Albumin Urine WBC (Auto) U Epithel Cells (Auto) Urine Creatinine Urine Total Protein 11/17/16 11/17/16 05:42 05:42 RBC 2.93 L Hgb 9.7 L Hct 28.8 L MCV 98 H MCH 33 H RDW 15.5 H Plt Count 105 L Lymph % (Auto) Lymph # Seg Neutrophils % Seg Neuts % (Manual) Lymphocytes % (Manual) Seg Neutrophils # Man Lymphocytes # (Manual) Percent Retic PT INR APTT Heparin Anti-Xa Level Sodium 136 L Potassium Chloride 94.4 L Carbon Dioxide BUN 78 H Creatinine 3.4 H Glucose 204 H POC Glucose Calcium 7.5 L TIBC AST Total Creatine Kinase CK-MB (CK-2) CK-MB (CK-2) Rel Index C-Reactive Protein Total Protein Albumin Urine WBC (Auto) U Epithel Cells (Auto) Urine Creatinine Urine Total Protein Allied health notes reviewed: RT
[2016-11-17] MEDS: SENOKOT S PO SCH (22:40)
[2016-11-18 06:07] LABS: Hematocrit 30.4 % (30.3-42.9); Hemoglobin 9.7 gm/dl (10.1-14.3); Mean Corpuscular HGB Conc 32 % (30-34); Mean Corpuscular Hemoglobin 32 pg (28-32); Mean Corpuscular Volume 101 fl (79-97); Platelet Count 68 K/mm3 (140-440); Red Blood Count 3.01 M/mm3 (3.65-5.03); Red Cell Distribution Width 15.5 % (13.2-15.2); White Blood Count 11.8 K/mm3 (4.5-11.0)
[2016-11-18 06:22] LABS: BUN/Creatinine Ratio 23.11; Calcium 7.5 mg/dL (8.4-10.2); Chloride 89.7 mmol/L (98-107)
[2016-11-18 06:27] LABS: Potassium 5.3 mmol/L (3.6-5.0)
[2016-11-18] MEDS: DUONEB *Not for PRN Use IH SCH ×3 (07:48→19:59)
[2016-11-18] MEDS: APRESOLINE PO SCH ×3 (08:00→20:45)
--- NOTE | 2016-11-18 08:40 | XRay Report ---
ROUTINE CHEST, TWO VIEWS: HISTORY: Short of breath. Moderate cardiomegaly is present. Pulmonary edema has essentially resolved since 11/09/16 exam. Small left pleural effusion could be present. Otherwise, the lungs are clear. No pneumothorax. Right IJ venous catheter terminates in the right atrium. IMPRESSION: Cardiomegaly. Possible small left pleural effusion. Congestive changes have improved since 11/09/16.
[2016-11-18 08:43] LABS: Anisocytosis 1+; Basophils % (Manual) 0 % (0.0-1.8); Blastocytes % (Manual) 0 %; Eosinophils % (Manual) 0 % (0.0-4.3)
[2016-11-18 08:44] LABS: Diff Status Complete; Platelet Estimate Cons
--- NOTE | 2016-11-18 09:30 | Progress Note ---
Assessment and Plan Renal failure initiated on dialysis this admission Acute decompensated systolic heart failure Anemia EGD/Flex this admission reports mild non-erosive gastritis and hemorrhoids. No contraindication to proceeding with cardiac cath/DAPT at present per GI Thrombocytopenia NSTEMI [facility] this admission reports a 80% proximal OM2, 60-70% mid LAD, severe diffuse disease of a small distal RCA with left to right collaterals. Severe Cardiomyopathy LVEF 10-15% on echocardiogram Moderate to severe mitral regurgitation Prior CVA Hypertension Subjective Date of service: 11/18/16 Principal diagnosis: Anemia Interval history: Patient is resting in bed comfortably. She denies chest pain and shortness of breath. Noted drop of platelets on morning labs. Objective Vital Signs Temp Pulse Pulse Pulse Resp Resp BP 11/18/16 07:49 77 17 11/18/16 07:48 76 18 11/18/16 07:00 97.4 F L 74 18 11/18/16 05:39 98 F 72 20 11/18/16 00:18 97.8 F 69 18 11/17/16 22:37 80 105/55 11/17/16 22:00 78 87 18 11/17/16 20:51 79 18 11/17/16 20:50 80 105/55 11/17/16 20:25 97.6 F 80 20 11/17/16 20:11 81 18 11/17/16 18:57 84 11/17/16 18:14 86 115/56 11/17/16 18:01 98.6 F 79 18 11/17/16 13:32 83 18 11/17/16 13:31 84 17 11/17/16 10:43 73 11/17/16 09:46 82 100/55 11/17/16 09:45 82 100/55 BP Pulse Ox 11/18/16 07:49 98 11/18/16 07:48 11/18/16 07:00 161/71 98 11/18/16 05:39 110/68 98 11/18/16 00:18 106/51 99 11/17/16 22:37 11/17/16 22:00 99 11/17/16 20:51 11/17/16 20:50 11/17/16 20:25 105/55 99 11/17/16 20:11 11/17/16 18:57 11/17/16 18:14 11/17/16 18:01 115/56 98 11/17/16 13:32 11/17/16 13:31 11/17/16 10:43 11/17/16 09:46 11/17/16 09:45 - Physical Examination General: No Apparent Distress HEENT: Positive: PERRL Neck: Positive: trachea midline Cardiac: Positive: Reg Rate and Rhythm - Labs and Meds CBC 11/18/16 Range/Units 05:00 WBC 11.8 H (4.5-11.0) K/mm3 RBC 3.01 L (3.65-5.03) M/mm3 Hgb 9.7 L (10.1-14.3) gm/dl Hct 30.4 (30.3-42.9) % Plt Count 68 L (140-440) K/mm3 Lymph # Pig [employer] Melter Helper [place] # Pig Lead Melter Helper Eos # Pig Lead Melter Helper Baso # Pig Lead Melter Helper Comprehensive Metabolic Panel 11/18/16 Range/Units 05:00 Sodium 128 L D (137-145) mmol/L Potassium 5.3 H (3.6-5.0) mmol/L Chloride 89.7 L (98-107) mmol/L Carbon Dioxide 19 L (22-30) mmol/L BUN 104 H (7-17) mg/dL Creatinine 4.5 H (0.7-1.2) mg/dL Glucose 174 H (65-100) mg/dL Calcium 7.5 L (8.4-10.2) mg/dL - Imaging and Cardiology EKG: report reviewed (Sinus Tach pvc's LVH 119/min Repolarization abnormalities) - Allied health notes Allied health notes reviewed: RT
[2016-11-18] MEDS: COREG PO SCH ×2 (09:56→21:46)
--- NOTE | 2016-11-18 10:34 | Progress Note ---
Assessment and Plan Assessment and plan: NSTEMI. [facility] this admission reports a 80% proximal OM2, 60-70% mid LAD, severe diffuse disease of a small distal RCA with left to right collaterals. Cardiology to schedule coronary intervention for tomorrow morning if no further evidence of bleeding. NATHALIA vs CKD. Patient initiated on dialysis this admission. Currently with Wednesday, Wednesday and Wednesday schedule. Renal ultrasound showing no hydronephrosis. Valsartan and Lasix have been discontinued. Acute decompensated systolic heart failure. Continue hemodialysis as above for volume control. Cardiology following. Transthoracic echocardiogram report by Dr. Shane read as left ventricular chamber size severely dilated, global left systolic function is severely decreased, estimated ejection fraction is 10-15%, mild concentric left ventricular hypertrophy, left atrium is severely dilated, moderate to severe MR, mild to moderate TR, evidence of mild pulmonary hypertension, trivial pericardial effusion, catheters visualizing right atrium. Anemia. EGD/Flex this admission reports mild non-erosive gastritis and hemorrhoids. GI following. GI reports no contraindication to proceeding to cardiac cath/DAPT at present. Thrombocytopenia. Patient with a drop in platelet counts overnight. Follow-up CBC in a.m. Severe Cardiomyopathy. LVEF 10-15% on echocardiogram. Moderate to severe mitral regurgitation hx CVA Hypertension. Continue antihypertensive medications. History Interval history: No new issues overnight. I discussed the case with the family Hospitalist Physical - Constitutional Vitals: Temp Pulse Resp BP Pulse Ox 97.4 F L 77 17 161/71 98 11/18/16 07:00 11/18/16 07:49 11/18/16 07:49 11/18/16 07:00 11/18/16 07:49 General appearance: Present: no acute distress, well-nourished - EENT Eyes: Present: PERRL, EOM intact ENT: hearing intact, clear oral mucosa, dentition normal - Neck Neck: Present: supple, normal ROM - Respiratory Respiratory effort: normal Respiratory: bilateral: CTA - Cardiovascular Rhythm: regular Heart Sounds: Present: S1 & S2. Absent: gallop, rub - Extremities Extremities: no ischemia, No edema, Full ROM - Abdominal General gastrointestinal: soft, non-tender, non-distended, normal bowel sounds - Integumentary Integumentary: Present: clear, warm, dry - Neurologic Neurologic: CNII-XII intact, moves all extremities Results - Labs CBC & Chem 7: 11/18/16 05:00 11/18/16 05:00 Labs: Laboratory Last Values WBC 11.8 K/mm3 (4.5-11.0) H 11/18/16 05:00 RBC 3.01 M/mm3 (3.65-5.03) L 11/18/16 05:00 Hgb 9.7 gm/dl (10.1-14.3) L 11/18/16 05:00 Hct 30.4 % (30.3-42.9) 11/18/16 05:00 MCV 101 fl (79-97) H 11/18/16 05:00 MCH 32 pg (28-32) 11/18/16 05:00 MCHC 32 % (30-34) 11/18/16 05:00 RDW 15.5 % (13.2-15.2) H 11/18/16 05:00 Plt Count 68 K/mm3 (140-440) L 11/18/16 05:00 Lymph % (Auto) L[employer] 11/18/16 05:00 [place] % (Auto) L[employer] Builder 11/18/16 05:00 Eos % (Auto) L[employer] Chain Builder 11/18/16 05:00 Baso % (Auto) L[employer] 11/18/16 05:00 Lymph # L[employer] Builder 11/18/16 05:00 [place] # Loom [employer] Chain Builder 11/18/16 05:00 Eos # Loom [employer] Chain Builder 11/18/16 05:00 Baso # Loom [employer] Chain Builder 11/18/16 05:00 Add Manual Diff Complete 11/18/16 05:00 Total Counted 100 11/18/16 05:00 Seg Neutrophils % L[employer] 11/18/16 05:00 Seg Neuts % (Manual) 96.0 % (40.0-70.0) H 11/18/16 05:00 Band Neutrophils % 0 % 11/18/16 05:00 Lymphocytes % (Manual) 2.0 % (13.4-35.0) L 11/18/16 05:00 Reactive Lymphs % (Man) 0 % 11/18/16 05:00 Monocytes % (Manual) 2.0 % (0.0-7.3) 11/18/16 05:00 Eosinophils % (Manual) 0 % (0.0-4.3) 11/18/16 05:00 Basophils % (Manual) 0 % (0.0-1.8) 11/18/16 05:00 Metamyelocytes % 0 % 11/18/16 05:00 Myelocytes % 0 % 11/18/16 05:00 Promyelocytes % 0 % 11/18/16 05:00 Blast Cells % 0 % 11/18/16 05:00 Nucleated RBC % Not Reportable 11/18/16 05:00 Seg Neutrophils # L[employer] 11/18/16 05:00 Seg Neutrophils # Man 11.3 K/mm3 (1.8-7.7) H 11/18/16 05:00 Band Neutrophils # 0.0 K/mm3 11/18/16 05:00 Lymphocytes # (Manual) 0.2 K/mm3 (1.2-5.4) L 11/18/16 05:00 Abs React Lymphs (Man) 0.0 K/mm3 11/18/16 05:00 Monocytes # (Manual) 0.2 K/mm3 (0.0-0.8) 11/18/16 05:00 Eosinophils # (Manual) 0.0 K/mm3 (0.0-0.4) 11/18/16 05:00 Basophils # (Manual) 0.0 K/mm3 (0.0-0.1) 11/18/16 05:00 Metamyelocytes # 0.0 K/mm3 11/18/16 05:00 Myelocytes # 0.0 K/mm3 11/18/16 05:00 Promyelocytes # 0.0 K/mm3 11/18/16 05:00 Blast Cells # 0.0 K/mm3 11/18/16 05:00 WBC Morphology Not Reportable 11/18/16 05:00 Hypersegmented Neuts Not Reportable 11/18/16 05:00 Hyposegmented Neuts Not Reportable 11/18/16 05:00 Hypogranular Neuts Not Reportable 11/18/16 05:00 Smudge Cells Not Reportable 11/18/16 05:00 Toxic Granulation Not Reportable 11/18/16 05:00 Toxic Vacuolation Not Reportable 11/18/16 05:00 Dohle Bodies Not Reportable 11/18/16 05:00 Pelger-Huet Anomaly Not Reportable 11/18/16 05:00 Tamanna Rods Not Reportable 11/18/16 05:00 Platelet Estimate Cons 11/18/16 05:00 Clumped Platelets Not Reportable 11/18/16 05:00 Plt Clumps, EDTA Not Reportable 11/18/16 05:00 Large Platelets Not Reportable 11/18/16 05:00 Giant Platelets Not Reportable 11/18/16 05:00 Platelet Satelliting Not Reportable 11/18/16 05:00 Plt Morphology Comment Not Reportable 11/18/16 05:00 RBC Morphology Not Reportable 11/18/16 05:00 Dimorphic RBCs Not Reportable 11/18/16 05:00 Polychromasia Not Reportable 11/18/16 05:00 Hypochromasia Not Reportable 11/18/16 05:00 Poikilocytosis Not Reportable 11/18/16 05:00 Anisocytosis 1+ 11/18/16 05:00 Microcytosis Not Reportable 11/18/16 05:00 Macrocytosis Not Reportable 11/18/16 05:00 Spherocytes Not Reportable 11/18/16 05:00 Pappenheimer Bodies Not Reportable 11/18/16 05:00 Sickle Cells Not Reportable 11/18/16 05:00 Target Cells Not Reportable 11/18/16 05:00 Tear Drop Cells Not Reportable 11/18/16 05:00 Ovalocytes Not Reportable 11/18/16 05:00 Helmet Cells Not Reportable 11/18/16 05:00 [place] Bodies Not Reportable 11/18/16 05:00 [place] Rings Not Reportable 11/18/16 05:00 [place] Cells Not Reportable 11/18/16 05:00 Bite Cells Not Reportable 11/18/16 05:00 Crenated Cell Not Reportable 11/18/16 05:00 Elliptocytes Not Reportable 11/18/16 05:00 Acanthocytes (Spur) Not Reportable 11/18/16 05:00 Rouleaux Not Reportable 11/18/16 05:00 Hemoglobin C Crystals Not Reportable 11/18/16 05:00 Schistocytes Not Reportable 11/18/16 05:00 Malaria parasites Not Reportable 11/18/16 05:00 Percent Retic 4.37 % (0.78-2.58) H 11/10/16 19:09 Javi Bodies Not Reportable 11/18/16 05:00 Hem Pathologist Commnt No 11/18/16 05:00 PT 14.8 Sec. (12.2-14.9) 11/13/16 04:47 INR 1.10 (0.87-1.13) 11/13/16 04:47 APTT 38.5 Sec. (24.2-36.6) H 11/08/16 12:04 D-Dimer 1575.53 ng/mlDDU (0-234) H 11/07/16 16:35 Heparin Anti-Xa Level 0.12 U.I./ml (0.3-0.7) L 11/10/16 07:16 POC ABG pH 7.371 (7.35-7.45) 11/07/16 18:14 POC ABG pCO2 27.0 (35-45) L 11/07/16 18:14 POC ABG pO2 124 (80-105) H 11/07/16 18:14 POC ABG HCO3 15.6 11/07/16 18:14 POC ABG Total CO2 16 11/07/16 18:14 POC ABG O2 Sat 99 11/07/16 18:14 POC ABG Base Excess -10 11/07/16 18:14 FiO2 35 % 11/07/16 18:14 Sodium 128 mmol/L (137-145) L D 11/18/16 05:00 Potassium 5.3 mmol/L (3.6-5.0) H 11/18/16 05:00 Chloride 89.7 mmol/L (98-107) L 11/18/16 05:00 Carbon Dioxide 19 mmol/L (22-30) L 11/18/16 05:00 Anion Gap 25 mmol/L 11/18/16 05:00 BUN 104 mg/dL (7-17) H 11/18/16 05:00 Creatinine 4.5 mg/dL (0.7-1.2) H 11/18/16 05:00 Estimated GFR 12 ml/min 11/18/16 05:00 BUN/Creatinine Ratio 23.11 % 11/18/16 05:00 Glucose 174 mg/dL (65-100) H 11/18/16 05:00 POC Glucose 172 (70-105) H 11/18/16 07:38 Hemoglobin A1c 4.8 % (4-6) 11/07/16 16:35 Lactic Acid 1.10 mmol/L (0.7-2.0) 11/09/16 03:19 Calcium 7.5 mg/dL (8.4-10.2) L 11/18/16 05:00 Iron 70 ug/dL (37-170) 11/10/16 18:10 TIBC 237 mcg/dL (250-450) L 11/10/16 18:10 Ferritin 211.2 ng/mL (13.0-400.0) 11/10/16 18:10 Total Bilirubin 0.40 mg/dL (0.1-1.2) 11/08/16 06:45 AST 164 units/L (5-40) H 11/08/16 06:45 ALT 47 units/L (7-56) 11/08/16 06:45 Alkaline Phosphatase 89 units/L (35-129) 11/08/16 06:45 Total Creatine Kinase 947 units/L (30-135) H 11/08/16 17:09 CK-MB (CK-2) 91.7 ng/mL (0.0-4.0) H 11/08/16 17:09 CK-MB (CK-2) Rel Index 9.6 (0-4) H 11/08/16 17:09 Troponin T 6.920 ng/mL (0.00-0.029) H* 11/07/16 18:36 C-Reactive Protein 5.80 mg/dL (0.00-1.30) H 11/08/16 17:09 NT-Pro-B Natriuret Pep 62104 pg/mL (0-900) H 11/07/16 16:35 Total Protein 5.6 g/dL (6.3-8.2) L 11/08/16 06:45 Albumin 2.5 g/dL (3.9-5) L 11/08/16 06:45 Albumin/Globulin Ratio 0.8 % 11/08/16 06:45 Triglycerides 69 mg/dL (2-149) 11/07/16 16:35 Cholesterol 129 mg/dL (50-199) 11/07/16 16:35 LDL Cholesterol Direct 56 mg/dL (50-130) 11/07/16 16:35 HDL Cholesterol 60 mg/dL (40-59) H 11/07/16 16:35 Cholesterol/HDL Ratio 2.15 % 11/07/16 16:35 TSH 4.120 mlU/mL (0.270-4.200) 11/09/16 15:38 Urine Color Yellow (Yellow) 11/08/16 13:56 Urine Turbidity Cloudy (Clear) 11/08/16 13:56 Urine pH 5.0 (5.0-7.0) 11/08/16 13:56 Ur Specific [place] 1.013 (1.003-1.030) 11/08/16 13:56 Urine Protein 100 mg/dl mg/dL (Negative) 11/08/16 13:56 Urine Glucose (UA) Neg mg/dL (Negative) 11/08/16 13:56 Urine Ketones Neg mg/dL (Negative) 11/08/16 13:56 Urine Blood Lg (Negative) 11/08/16 13:56 Urine Nitrite Neg (Negative) 11/08/16 13:56 Urine Bilirubin Neg (Negative) 11/08/16 13:56 Urine Urobilinogen < 2.0 mg/dL (<2.0) 11/08/16 13:56 Ur Leukocyte Esterase Mod (Negative) 11/08/16 13:56 Urine WBC (Auto) 25.0 /HPF (0.0-6.0) H 11/08/16 13:56 Urine RBC (Auto) > 182.0 /HPF (0.0-6.0) 11/08/16 13:56 U Epithel Cells (Auto) 20.0 /HPF (0-13.0) H 11/08/16 13:56 Urine WBC Clumps Few /HPF 11/08/16 13:56 Ur Transition Epith Cell 2 /HPF 11/08/16 13:56 Urine Creatinine 161.2 mg/dL (0.1-20.0) H 11/08/16 13:56 Protein/Creatinin Ratio 0.91 11/08/16 13:56 Urine Total Protein 146 mg/dL (5-11.8) H 11/08/16 13:56 Hep Bs Antigen Non-reactive (Negative) 11/10/16 04:32 Hepatitis C Antibody Non-reactive (NonReactive) 11/10/16 04:32
[2016-11-18] MEDS ORDERED: NACL 0.9% 100 ML IV PRN (11:31)
[2016-11-18 11:43] LABS: ISTAT Base Excess -3; ISTAT DEVICE 0; ISTAT HCO3 22.1; ISTAT PCO2 34.6 (35-45); ISTAT PH 7.413 (7.35-7.45); ISTAT PO2 79 (80-105); ISTAT SO2 96; ISTAT TCO2 23
--- NOTE | 2016-11-18 11:47 | Progress Note ---
Assessment and Plan (1) NATHALIA vs CKD, Baseline unavailable, CRS, now requiring dialysis Current Visit: Yes Status: Acute Plan to address problem: HD on MWF schedule Renal U/S reviewed. No hydronephrosis Avoid nephrotoxics Valsartan and Lasix have been d/asher Monitor for renal recovery No signs of renal recovery at present Out patient dialysis placement at [facility] in process (2) Acute systolic congestive herat failure Current Visit: Yes Status: Acute Plan to address problem: UF on dialysis Strict I/Os 2D echo report reviewed. It showed EF of 10-15 % (3) NSTEMI (non-ST elevated myocardial infarction) Current Visit: Yes Status: Acute Plan to address problem: Management per Cardio [facility] this admission reports a 80% proximal OM2, 60-70% mid LAD, severe diffuse disease of a small distal RCA with left to right collaterals. (4) Acute hypoxic respiratory failure (Pneumonia /pulmonary edema) Current Visit: Yes Status: Acute improved with dialysis fluid removal (5) Essential HTN (hypertension) Current Visit: Yes Status: Chronic Qualifiers: Hypertension type: essential hypertension Qualified Code(s): I10 - Essential (primary) hypertension Plan to address problem: Stable. (6) GI bleeding Current Visit: Yes Status: Acute EGD today (7) Dementia Current Visit: Yes Status: Chronic Qualifiers: Dementia type: vascular dementia Alzheimer's disease onset: A Dementia behavioral disturbance: D Plan to address problem: Cont [place] Subjective Date of service: 11/18/16 Principal diagnosis: Anemia Interval history: Receiving dialysis Objective - Exam Narrative Exam: General appearance: well-developed, well-nourished, appears stated age, no distress EENT: PERRL, mucous membranes moist Neck: Present: neck supple, trachea midline. Absent: JVD/HJR, Masses Respiratory: Decreased Breath Sounds, scattered wheezes Heart: regular, normal heart rate, S1S2, no murmurs Gastrointestinal: Present: normoactive bowel sounds. Absent: tenderness Integumentary: no rash, warm and dry Neurologic: no focal deficit, alert and oriented x3, gait normal, strength 5/5 Musculoskeletal: Absent: deformities, joint swelling Psychiatric: mood/affect appropriate, cooperative - Vital Signs Vital signs: Vital Signs - 12hr 11/18/16 11/18/16 11/18/16 00:18 05:39 07:00 Temperature 97.8 F 98 F 97.4 F L Pulse Rate Pulse Rate [ Anterior Bilateral Throughout] Pulse Rate [ 69 72 74 Right Radial] Respiratory 18 20 18 Rate Respiratory Rate [Anterior Bilateral Throughout] Blood Pressure Blood Pressure 106/51 110/68 161/71 [Left Arm] O2 Sat by Pulse 99 98 98 Oximetry 11/18/16 11/18/16 11/18/16 07:48 07:49 11:00 Temperature 97.6 F Pulse Rate 85 Pulse Rate [ 76 77 Anterior Bilateral Throughout] Pulse Rate [ Right Radial] Respiratory 16 Rate Respiratory 18 17 Rate [Anterior Bilateral Throughout] Blood Pressure 154/77 Blood Pressure [Left Arm] O2 Sat by Pulse 98 Oximetry - Lab 11/18/16 05:00 11/18/16 05:00 Most recent lab results Calcium 7.5 mg/dL (8.4-10.2) L 11/18/16 05:00 Urine Creatinine 161.2 mg/dL (0.1-20.0) H 11/08/16 13:56 Urine Total Protein 146 mg/dL (5-11.8) H 11/08/16 13:56
[2016-11-18] MEDS ORDERED: NACL 0.9 (PRIMING MACHINE ONLY DIALYSIS) MC ONE (11:57)
[2016-11-18] MEDS: HEPARIN IV PRN (13:46)
--- NOTE | 2016-11-18 14:53 | Progress Note ---
Assessment and Plan Patient alert, awake and resting on 2 litres O2.O2 saturation 98%.Patient says breathing better. No complaint of chest pain or shortness of breath - Patient Problems (1) Acute respiratory failure with hypoxia Current Visit: Yes Status: Acute Plan to address problem: Patient is on 2 litres O2. Albuterol/atrovent aerosol treatments q 6 hours. Continue I/V solumedral. Continue S/C Heparin. Continue Protonix. (2) NSTEMI (non-ST elevated myocardial infarction) Current Visit: Yes Status: Acute Plan to address problem: Management as per cardiology (3) Thrombocytopenia Current Visit: Yes Status: Acute Plan to address problem: Platelet count dropping ltest platelet count [id number]. (4) CKD (chronic kidney disease) stage 4, GFR 15-29 ml/min Current Visit: Yes Status: Chronic Plan to address problem: Management as per nephrology. Subjective Date of service: 11/18/16 Principal diagnosis: Anemia Interval history: Patient alert, awake and resting on 2 litres O2.O2 saturation 98%.Patient says breathing better. No complaint of chest pain or shortness of breath Objective Vital Signs - 12hr 11/18/16 11/18/16 11/18/16 05:39 07:00 07:48 Temperature 98 F 97.4 F L Pulse Rate Pulse Rate [ 76 Anterior Bilateral Throughout] Pulse Rate [ 72 74 Right Radial] Respiratory 20 18 Rate Respiratory 18 Rate [Anterior Bilateral Throughout] Blood Pressure Blood Pressure 110/68 161/71 [Left Arm] O2 Sat by Pulse 98 98 Oximetry 11/18/16 11/18/16 11/18/16 07:49 11:00 11:15 Temperature 97.6 F Pulse Rate 85 72 Pulse Rate [ 77 Anterior Bilateral Throughout] Pulse Rate [ Right Radial] Respiratory 16 Rate Respiratory 17 Rate [Anterior Bilateral Throughout] Blood Pressure 154/77 141/61 Blood Pressure [Left Arm] O2 Sat by Pulse 98 Oximetry 11/18/16 11/18/16 11/18/16 11:30 11:45 12:00 Temperature Pulse Rate 73 79 79 Pulse Rate [ Anterior Bilateral Throughout] Pulse Rate [ Right Radial] Respiratory Rate Respiratory Rate [Anterior Bilateral Throughout] Blood Pressure 145/73 135/75 129/72 Blood Pressure [Left Arm] O2 Sat by Pulse Oximetry 11/18/16 11/18/16 11/18/16 12:15 12:30 12:45 Temperature Pulse Rate 77 81 81 Pulse Rate [ Anterior Bilateral Throughout] Pulse Rate [ Right Radial] Respiratory Rate Respiratory Rate [Anterior Bilateral Throughout] Blood Pressure 131/69 134/80 140/73 Blood Pressure [Left Arm] O2 Sat by Pulse Oximetry 11/18/16 11/18/16 11/18/16 13:00 13:15 13:30 Temperature Pulse Rate 80 80 80 Pulse Rate [ Anterior Bilateral Throughout] Pulse Rate [ Right Radial] Respiratory Rate Respiratory Rate [Anterior Bilateral Throughout] Blood Pressure 138/77 137/83 133/74 Blood Pressure [Left Arm] O2 Sat by Pulse Oximetry 11/18/16 11/18/16 13:45 14:00 Temperature 97.4 F L Pulse Rate 79 70 Pulse Rate [ Anterior Bilateral Throughout] Pulse Rate [ Right Radial] Respiratory 16 Rate Respiratory Rate [Anterior Bilateral Throughout] Blood Pressure 129/78 158/84 Blood Pressure [Left Arm] O2 Sat by Pulse Oximetry Constitutional: no acute distress, alert Eyes: non-icteric ENT: oropharynx moist Neck: supple, no JVD Effort: normal Ascultation: Bilateral: diminished breath sounds, rales (basila) Cardiovascular: regular rate and rhythm Gastrointestinal: normoactive bowel sounds, soft, non-distended Integumentary: normal Extremities: no cyanosis, no edema, pink and warm, pulses normal, no ischemia or petechiae Neurologic: normal mental status, non-focal exam, CN II-XII normal Psychiatric: mood appropriate, affect normal CBC and BMP: 11/18/16 05:00 11/18/16 05:00 ABG, PT/INR, D-dimer: ABG POC ABG pH 7.413 (7.35-7.45) 11/18/16 10:48 POC ABG pCO2 34.6 (35-45) L 11/18/16 10:48 POC ABG pO2 79 (80-105) L 11/18/16 10:48 POC ABG HCO3 22.1 11/18/16 10:48 POC ABG Total CO2 23 11/18/16 10:48 POC ABG O2 Sat 96 11/18/16 10:48 PT/INR, D-dimer PT 14.8 Sec. (12.2-14.9) 11/13/16 04:47 INR 1.10 (0.87-1.13) 11/13/16 04:47 D-Dimer 1575.53 ng/mlDDU (0-234) H 11/07/16 16:35 Abnormal lab findings: Abnormal Labs 11/07/16 11/08/16 11/08/16 21:43 06:45 06:45 WBC RBC 2.37 L Hgb 7.6 L Hct 23.3 L D MCV 98 H MCH RDW Plt Count Lymph % (Auto) 8.0 L Lymph # 0.5 L Seg Neutrophils % 89.2 H Seg Neuts % (Manual) Lymphocytes % (Manual) Seg Neutrophils # Man Lymphocytes # (Manual) Percent Retic PT INR APTT Heparin Anti-Xa Level POC ABG pCO2 POC ABG pO2 Sodium Potassium Chloride Carbon Dioxide 17 L BUN 52 H Creatinine 3.3 H Glucose 263 H POC Glucose Calcium TIBC AST 164 H Total Creatine Kinase 1584 H CK-MB (CK-2) 268.6 H CK-MB (CK-2) Rel Index 16.9 H C-Reactive Protein Total Protein 5.6 L Albumin 2.5 L Urine WBC (Auto) U Epithel Cells (Auto) Urine Creatinine Urine Total Protein 11/08/16 11/08/16 11/08/16 06:45 12:04 12:04 WBC RBC Hgb 8.0 L Hct 23.7 L MCV MCH RDW Plt Count Lymph % (Auto) Lymph # Seg Neutrophils % Seg Neuts % (Manual) Lymphocytes % (Manual) Seg Neutrophils # Man Lymphocytes # (Manual) Percent Retic PT 16.5 H INR 1.34 H APTT 38.5 H Heparin Anti-Xa Level POC ABG pCO2 POC ABG pO2 Sodium Potassium Chloride Carbon Dioxide BUN Creatinine Glucose POC Glucose Calcium TIBC AST Total Creatine Kinase 1273 H CK-MB (CK-2) 182.7 H CK-MB (CK-2) Rel Index 14.3 H C-Reactive Protein Total Protein Albumin Urine WBC (Auto) U Epithel Cells (Auto) Urine Creatinine Urine Total Protein 11/08/16 11/08/16 11/08/16 13:56 13:56 17:09 WBC RBC Hgb Hct MCV MCH RDW Plt Count Lymph % (Auto) Lymph # Seg Neutrophils % Seg Neuts % (Manual) Lymphocytes % (Manual) Seg Neutrophils # Man Lymphocytes # (Manual) Percent Retic PT INR APTT Heparin Anti-Xa Level POC ABG pCO2 POC ABG pO2 Sodium Potassium Chloride Carbon Dioxide BUN Creatinine Glucose POC Glucose Calcium TIBC AST Total Creatine Kinase 947 H CK-MB (CK-2) 91.7 H CK-MB (CK-2) Rel Index 9.6 H C-Reactive Protein Total Protein Albumin Urine WBC (Auto) 25.0 H U Epithel Cells (Auto) 20.0 H Urine Creatinine 161.2 H Urine Total Protein 146 H 11/08/16 11/09/16 11/09/16 17:09 03:19 07:04 WBC RBC Hgb 8.6 L Hct 26.1 L MCV MCH RDW Plt Count Lymph % (Auto) Lymph # Seg Neutrophils % Seg Neuts % (Manual) Lymphocytes % (Manual) Seg Neutrophils # Man Lymphocytes # (Manual) Percent Retic PT INR APTT Heparin Anti-Xa Level POC ABG pCO2 POC ABG pO2 Sodium 135 L Potassium 5.7 H D Chloride Carbon Dioxide 15 L BUN 70 H Creatinine 5.0 H D Glucose 169 H POC Glucose Calcium 7.9 L TIBC AST Total Creatine Kinase CK-MB (CK-2) CK-MB (CK-2) Rel Index C-Reactive Protein 5.80 H Total Protein Albumin Urine WBC (Auto) U Epithel Cells (Auto) Urine Creatinine Urine Total Protein 11/09/16 11/10/16 11/10/16 21:00 04:32 07:16 WBC RBC Hgb 8.4 L Hct 25.6 L MCV MCH RDW Plt Count 111 L Lymph % (Auto) Lymph # Seg Neutrophils % Seg Neuts % (Manual) Lymphocytes % (Manual) Seg Neutrophils # Man Lymphocytes # (Manual) Percent Retic PT INR APTT Heparin Anti-Xa Level 0.91 H 0.12 L POC ABG pCO2 POC ABG pO2 Sodium Potassium Chloride Carbon Dioxide BUN Creatinine Glucose POC Glucose Calcium TIBC AST Total Creatine Kinase CK-MB (CK-2) CK-MB (CK-2) Rel Index C-Reactive Protein Total Protein Albumin Urine WBC (Auto) U Epithel Cells (Auto) Urine Creatinine Urine Total Protein 11/10/16 11/10/16 11/10/16 10:05 18:10 19:09 WBC RBC Hgb Hct MCV MCH RDW Plt Count Lymph % (Auto) Lymph # Seg Neutrophils % Seg Neuts % (Manual) Lymphocytes % (Manual) Seg Neutrophils # Man Lymphocytes # (Manual) Percent Retic 4.37 H PT INR APTT Heparin Anti-Xa Level POC ABG pCO2 POC ABG pO2 Sodium Potassium Chloride 97.2 L Carbon Dioxide BUN 62 H Creatinine 4.4 H Glucose 206 H POC Glucose Calcium 7.0 L TIBC 237 L AST Total Creatine Kinase CK-MB (CK-2) CK-MB (CK-2) Rel Index C-Reactive Protein Total Protein Albumin Urine WBC (Auto) U Epithel Cells (Auto) Urine Creatinine Urine Total Protein 11/13/16 11/13/16 11/13/16 04:47 04:47 05:48 WBC RBC 2.82 L Hgb 9.1 L Hct 27.8 L MCV 99 H MCH RDW Plt Count 89 L Lymph % (Auto) Lymph # Seg Neutrophils % Seg Neuts % (Manual) 92.0 H Lymphocytes % (Manual) 5.0 L Seg Neutrophils # Man 7.8 H Lymphocytes # (Manual) 0.4 L Percent Retic PT INR APTT Heparin Anti-Xa Level POC ABG pCO2 POC ABG pO2 Sodium Potassium Chloride 96.8 L Carbon Dioxide BUN 60 H Creatinine 3.6 H Glucose 175 H POC Glucose 174 H Calcium 7.1 L TIBC AST Total Creatine Kinase CK-MB (CK-2) CK-MB (CK-2) Rel Index C-Reactive Protein Total Protein Albumin Urine WBC (Auto) U Epithel Cells (Auto) Urine Creatinine Urine Total Protein 11/14/16 11/16/16 11/16/16 08:49 05:29 16:38 WBC RBC Hgb Hct MCV MCH RDW Plt Count Lymph % (Auto) Lymph # Seg Neutrophils % Seg Neuts % (Manual) Lymphocytes % (Manual) Seg Neutrophils # Man Lymphocytes # (Manual) Percent Retic PT INR APTT Heparin Anti-Xa Level POC ABG pCO2 POC ABG pO2 Sodium 136 L 132 L Potassium Chloride 94.4 L 90.7 L Carbon Dioxide 19 L BUN 92 H 136 H Creatinine 4.5 H 5.0 H Glucose 196 H 223 H POC Glucose 143 H Calcium 7.2 L 7.3 L TIBC AST Total Creatine Kinase CK-MB (CK-2) CK-MB (CK-2) Rel Index C-Reactive Protein Total Protein Albumin Urine WBC (Auto) U Epithel Cells (Auto) Urine Creatinine Urine Total Protein 11/17/16 11/17/16 11/17/16 05:42 05:42 21:08 WBC RBC 2.93 L Hgb 9.7 L Hct 28.8 L MCV 98 H MCH 33 H RDW 15.5 H Plt Count 105 L Lymph % (Auto) Lymph # Seg Neutrophils % Seg Neuts % (Manual) Lymphocytes % (Manual) Seg Neutrophils # Man Lymphocytes # (Manual) Percent Retic PT INR APTT Heparin Anti-Xa Level POC ABG pCO2 POC ABG pO2 Sodium 136 L Potassium Chloride 94.4 L Carbon Dioxide BUN 78 H Creatinine 3.4 H Glucose 204 H POC Glucose 190 H Calcium 7.5 L TIBC AST Total Creatine Kinase CK-MB (CK-2) CK-MB (CK-2) Rel Index C-Reactive Protein Total Protein Albumin Urine WBC (Auto) U Epithel Cells (Auto) Urine Creatinine Urine Total Protein 11/18/16 11/18/16 11/18/16 05:00 05:00 07:38 WBC 11.8 H RBC 3.01 L Hgb 9.7 L Hct MCV 101 H MCH RDW 15.5 H Plt Count 68 L Lymph % (Auto) Lymph # Seg Neutrophils % Seg Neuts % (Manual) 96.0 H Lymphocytes % (Manual) 2.0 L Seg Neutrophils # Man 11.3 H Lymphocytes # (Manual) 0.2 L Percent Retic PT INR APTT Heparin Anti-Xa Level POC ABG pCO2 POC ABG pO2 Sodium 128 L D Potassium 5.3 H Chloride 89.7 L Carbon Dioxide 19 L BUN 104 H Creatinine 4.5 H Glucose 174 H POC Glucose 172 H Calcium 7.5 L TIBC AST Total Creatine Kinase CK-MB (CK-2) CK-MB (CK-2) Rel Index C-Reactive Protein Total Protein Albumin Urine WBC (Auto) U Epithel Cells (Auto) Urine Creatinine Urine Total Protein 11/18/16 10:48 WBC RBC Hgb Hct MCV MCH RDW Plt Count Lymph % (Auto) Lymph # Seg Neutrophils % Seg Neuts % (Manual) Lymphocytes % (Manual) Seg Neutrophils # Man Lymphocytes # (Manual) Percent Retic PT INR APTT Heparin Anti-Xa Level POC ABG pCO2 34.6 L POC ABG pO2 79 L Sodium Potassium Chloride Carbon Dioxide BUN Creatinine Glucose POC Glucose Calcium TIBC AST Total Creatine Kinase CK-MB (CK-2) CK-MB (CK-2) Rel Index C-Reactive Protein Total Protein Albumin Urine WBC (Auto) U Epithel Cells (Auto) Urine Creatinine Urine Total Protein Allied health notes reviewed: RT
[2016-11-18] MEDS: BABY ASPIRIN PO SCH (17:04)
[2016-11-18] MEDS: IMDUR PO SCH (17:04)
[2016-11-18] MEDS: NORVASC PO SCH (17:05)
[2016-11-18] MEDS: NAMENDA XR PO SCH (17:05)
[2016-11-18] MEDS: OYSCO D 500 MG-200 UNIT PO SCH (17:06)
[2016-11-18] MEDS: ZESTRIL PO SCH (17:07)
[2016-11-18] MEDS: PLAVIX PO SCH (17:07)
[2016-11-18] MEDS: PROTONIX PO SCH (17:08)
[2016-11-18] MEDS: SENOKOT S PO SCH (21:47)
[2016-11-19 04:07] LABS: Hematocrit 29.4 % (30.3-42.9); Hemoglobin 9.6 gm/dl (10.1-14.3); Mean Corpuscular HGB Conc 33 % (30-34); Mean Corpuscular Hemoglobin 33 pg (28-32); Mean Corpuscular Volume 100 fl (79-97); Platelet Count 115 K/mm3 (140-440); Red Blood Count 2.95 M/mm3 (3.65-5.03); Red Cell Distribution Width 15.3 % (13.2-15.2); White Blood Count 9.3 K/mm3 (4.5-11.0)
[2016-11-19] MEDS: DUONEB *Not for PRN Use IH SCH ×3 (08:48→20:02)
[2016-11-19 09:43] LABS: INR 1.06 (0.87-1.13)
--- NOTE | 2016-11-19 10:35 | Progress Note ---
Assessment and Plan (1) Acute pulmonary edema Current Visit: Yes Status: Acute Plan to address problem: - Improved with UF/HD - Continue with supplemental oxygen to keep O2 sats>94% (2) Acute respiratory failure with hypoxia Current Visit: Yes Status: Acute Plan to address problem: - Much improved with HD/UF - Supplemental oxygen, to keep sats>94%. - continue bronchodilators and pulmonary toilet - continue HD/UF for volume control (3) NSTEMI (non-ST elevated myocardial infarction) Current Visit: Yes Status: Acute Plan to address problem: - Per cardiology service - Cardio-protective measures instituted - s/p cardiac catheterization - has disease that needs re-vascularization. - working on thrombocytopenia issues prior to PCI (4) CKD (chronic kidney disease) stage 4, GFR 15-29 ml/min Current Visit: Yes Status: Chronic Plan to address problem: - Per renal service - Dialysis M/W/F (5) Thrombocytopenia Current Visit: Yes Status: Acute Plan to address problem: - Monitor closely. No active bleeding at this time - follow HIT assay - avoid heparinoids in meantime ....overall improved Subjective Date of service: 11/19/16 Principal diagnosis: Acute Hypoxemic Respiratory Failure Interval history: Seen and examined at bedside; 24 hour events reviewed; nursing and respiratory care staff consulted; no adverse overnight events reported to me; resting peacefully in bed; denies acute chest pains or increased SOB; No N/V/F/C; no gross GI bleeding Objective Vital Signs - 12hr 11/19/16 11/19/16 11/19/16 00:00 00:33 04:42 Temperature 97.7 F 98 F Pulse Rate [ 71 71 Right Radial] Respiratory 19 21 Rate Blood Pressure 125/58 129/58 [Left Arm] Blood Pressure [Right Arm] Blood Pressure [Right Radial Artery] O2 Sat by Pulse 97 97 98 Oximetry 11/19/16 11/19/16 11/19/16 08:31 08:50 09:04 Temperature 97.8 F Pulse Rate [ 71 71 Right Radial] Respiratory 16 16 Rate Blood Pressure [Left Arm] Blood Pressure 152/77 [Right Arm] Blood Pressure 152/77 [Right Radial Artery] O2 Sat by Pulse 97 99 97 Oximetry Constitutional: no acute distress, alert Eyes: non-icteric ENT: oropharynx moist Neck: supple, no JVD Effort: normal Ascultation: Bilateral: diminished breath sounds, rales (basilar and scant) Cardiovascular: regular rate and rhythm Gastrointestinal: normoactive bowel sounds, soft, non-tender, non-distended Integumentary: normal Extremities: no cyanosis, no edema, pulses normal, no ischemia or petechiae Neurologic: normal mental status, non-focal exam, CN II-XII normal Psychiatric: mood appropriate, affect normal CBC and BMP: 11/21/16 05:25 11/21/16 05:25 ABG, PT/INR, D-dimer: ABG POC ABG pH 7.413 (7.35-7.45) 11/18/16 10:48 POC ABG pCO2 34.6 (35-45) L 11/18/16 10:48 POC ABG pO2 79 (80-105) L 11/18/16 10:48 POC ABG HCO3 22.1 11/18/16 10:48 POC ABG Total CO2 23 11/18/16 10:48 POC ABG O2 Sat 96 11/18/16 10:48 PT/INR, D-dimer PT 14.4 Sec. (12.2-14.9) 11/19/16 09:15 INR 1.06 (0.87-1.13) 11/19/16 09:15 D-Dimer 1575.53 ng/mlDDU (0-234) H 11/07/16 16:35 Abnormal lab findings: Abnormal Labs 11/07/16 11/08/16 11/08/16 21:43 06:45 06:45 WBC RBC 2.37 L Hgb 7.6 L Hct 23.3 L D MCV 98 H MCH RDW Plt Count Lymph % (Auto) 8.0 L Lymph # 0.5 L Seg Neutrophils % 89.2 H Seg Neuts % (Manual) Lymphocytes % (Manual) Seg Neutrophils # Man Lymphocytes # (Manual) Percent Retic PT INR APTT Heparin Anti-Xa Level POC ABG pCO2 POC ABG pO2 Sodium Potassium Chloride Carbon Dioxide 17 L BUN 52 H Creatinine 3.3 H Glucose 263 H POC Glucose Calcium TIBC AST 164 H Total Creatine Kinase 1584 H CK-MB (CK-2) 268.6 H CK-MB (CK-2) Rel Index 16.9 H C-Reactive Protein Total Protein 5.6 L Albumin 2.5 L Urine WBC (Auto) U Epithel Cells (Auto) Urine Creatinine Urine Total Protein 11/08/16 11/08/16 11/08/16 06:45 12:04 12:04 WBC RBC Hgb 8.0 L Hct 23.7 L MCV MCH RDW Plt Count Lymph % (Auto) Lymph # Seg Neutrophils % Seg Neuts % (Manual) Lymphocytes % (Manual) Seg Neutrophils # Man Lymphocytes # (Manual) Percent Retic PT 16.5 H INR 1.34 H APTT 38.5 H Heparin Anti-Xa Level POC ABG pCO2 POC ABG pO2 Sodium Potassium Chloride Carbon Dioxide BUN Creatinine Glucose POC Glucose Calcium TIBC AST Total Creatine Kinase 1273 H CK-MB (CK-2) 182.7 H CK-MB (CK-2) Rel Index 14.3 H C-Reactive Protein Total Protein Albumin Urine WBC (Auto) U Epithel Cells (Auto) Urine Creatinine Urine Total Protein 11/08/16 11/08/16 11/08/16 13:56 13:56 17:09 WBC RBC Hgb Hct MCV MCH RDW Plt Count Lymph % (Auto) Lymph # Seg Neutrophils % Seg Neuts % (Manual) Lymphocytes % (Manual) Seg Neutrophils # Man Lymphocytes # (Manual) Percent Retic PT INR APTT Heparin Anti-Xa Level POC ABG pCO2 POC ABG pO2 Sodium Potassium Chloride Carbon Dioxide BUN Creatinine Glucose POC Glucose Calcium TIBC AST Total Creatine Kinase 947 H CK-MB (CK-2) 91.7 H CK-MB (CK-2) Rel Index 9.6 H C-Reactive Protein Total Protein Albumin Urine WBC (Auto) 25.0 H U Epithel Cells (Auto) 20.0 H Urine Creatinine 161.2 H Urine Total Protein 146 H 11/08/16 11/09/16 11/09/16 17:09 03:19 07:04 WBC RBC Hgb 8.6 L Hct 26.1 L MCV MCH RDW Plt Count Lymph % (Auto) Lymph # Seg Neutrophils % Seg Neuts % (Manual) Lymphocytes % (Manual) Seg Neutrophils # Man Lymphocytes # (Manual) Percent Retic PT INR APTT Heparin Anti-Xa Level POC ABG pCO2 POC ABG pO2 Sodium 135 L Potassium 5.7 H D Chloride Carbon Dioxide 15 L BUN 70 H Creatinine 5.0 H D Glucose 169 H POC Glucose Calcium 7.9 L TIBC AST Total Creatine Kinase CK-MB (CK-2) CK-MB (CK-2) Rel Index C-Reactive Protein 5.80 H Total Protein Albumin Urine WBC (Auto) U Epithel Cells (Auto) Urine Creatinine Urine Total Protein 11/09/16 11/10/16 11/10/16 21:00 04:32 07:16 WBC RBC Hgb 8.4 L Hct 25.6 L MCV MCH RDW Plt Count 111 L Lymph % (Auto) Lymph # Seg Neutrophils % Seg Neuts % (Manual) Lymphocytes % (Manual) Seg Neutrophils # Man Lymphocytes # (Manual) Percent Retic PT INR APTT Heparin Anti-Xa Level 0.91 H 0.12 L POC ABG pCO2 POC ABG pO2 Sodium Potassium Chloride Carbon Dioxide BUN Creatinine Glucose POC Glucose Calcium TIBC AST Total Creatine Kinase CK-MB (CK-2) CK-MB (CK-2) Rel Index C-Reactive Protein Total Protein Albumin Urine WBC (Auto) U Epithel Cells (Auto) Urine Creatinine Urine Total Protein 11/10/16 11/10/16 11/10/16 10:05 18:10 19:09 WBC RBC Hgb Hct MCV MCH RDW Plt Count Lymph % (Auto) Lymph # Seg Neutrophils % Seg Neuts % (Manual) Lymphocytes % (Manual) Seg Neutrophils # Man Lymphocytes # (Manual) Percent Retic 4.37 H PT INR APTT Heparin Anti-Xa Level POC ABG pCO2 POC ABG pO2 Sodium Potassium Chloride 97.2 L Carbon Dioxide BUN 62 H Creatinine 4.4 H Glucose 206 H POC Glucose Calcium 7.0 L TIBC 237 L AST Total Creatine Kinase CK-MB (CK-2) CK-MB (CK-2) Rel Index C-Reactive Protein Total Protein Albumin Urine WBC (Auto) U Epithel Cells (Auto) Urine Creatinine Urine Total Protein 11/13/16 11/13/16 11/13/16 04:47 04:47 05:48 WBC RBC 2.82 L Hgb 9.1 L Hct 27.8 L MCV 99 H MCH RDW Plt Count 89 L Lymph % (Auto) Lymph # Seg Neutrophils % Seg Neuts % (Manual) 92.0 H Lymphocytes % (Manual) 5.0 L Seg Neutrophils # Man 7.8 H Lymphocytes # (Manual) 0.4 L Percent Retic PT INR APTT Heparin Anti-Xa Level POC ABG pCO2 POC ABG pO2 Sodium Potassium Chloride 96.8 L Carbon Dioxide BUN 60 H Creatinine 3.6 H Glucose 175 H POC Glucose 174 H Calcium 7.1 L TIBC AST Total Creatine Kinase CK-MB (CK-2) CK-MB (CK-2) Rel Index C-Reactive Protein Total Protein Albumin Urine WBC (Auto) U Epithel Cells (Auto) Urine Creatinine Urine Total Protein 11/14/16 11/16/16 11/16/16 08:49 05:29 16:38 WBC RBC Hgb Hct MCV MCH RDW Plt Count Lymph % (Auto) Lymph # Seg Neutrophils % Seg Neuts % (Manual) Lymphocytes % (Manual) Seg Neutrophils # Man Lymphocytes # (Manual) Percent Retic PT INR APTT Heparin Anti-Xa Level POC ABG pCO2 POC ABG pO2 Sodium 136 L 132 L Potassium Chloride 94.4 L 90.7 L Carbon Dioxide 19 L BUN 92 H 136 H Creatinine 4.5 H 5.0 H Glucose 196 H 223 H POC Glucose 143 H Calcium 7.2 L 7.3 L TIBC AST Total Creatine Kinase CK-MB (CK-2) CK-MB (CK-2) Rel Index C-Reactive Protein Total Protein Albumin Urine WBC (Auto) U Epithel Cells (Auto) Urine Creatinine Urine Total Protein 11/17/16 11/17/16 11/17/16 05:42 05:42 21:08 WBC RBC 2.93 L Hgb 9.7 L Hct 28.8 L MCV 98 H MCH 33 H RDW 15.5 H Plt Count 105 L Lymph % (Auto) Lymph # Seg Neutrophils % Seg Neuts % (Manual) Lymphocytes % (Manual) Seg Neutrophils # Man Lymphocytes # (Manual) Percent Retic PT INR APTT Heparin Anti-Xa Level POC ABG pCO2 POC ABG pO2 Sodium 136 L Potassium Chloride 94.4 L Carbon Dioxide BUN 78 H Creatinine 3.4 H Glucose 204 H POC Glucose 190 H Calcium 7.5 L TIBC AST Total Creatine Kinase CK-MB (CK-2) CK-MB (CK-2) Rel Index C-Reactive Protein Total Protein Albumin Urine WBC (Auto) U Epithel Cells (Auto) Urine Creatinine Urine Total Protein 11/18/16 11/18/16 11/18/16 05:00 05:00 07:38 WBC 11.8 H RBC 3.01 L Hgb 9.7 L Hct MCV 101 H MCH RDW 15.5 H Plt Count 68 L Lymph % (Auto) Lymph # Seg Neutrophils % Seg Neuts % (Manual) 96.0 H Lymphocytes % (Manual) 2.0 L Seg Neutrophils # Man 11.3 H Lymphocytes # (Manual) 0.2 L Percent Retic PT INR APTT Heparin Anti-Xa Level POC ABG pCO2 POC ABG pO2 Sodium 128 L D Potassium 5.3 H Chloride 89.7 L Carbon Dioxide 19 L BUN 104 H Creatinine 4.5 H Glucose 174 H POC Glucose 172 H Calcium 7.5 L TIBC AST Total Creatine Kinase CK-MB (CK-2) CK-MB (CK-2) Rel Index C-Reactive Protein Total Protein Albumin Urine WBC (Auto) U Epithel Cells (Auto) Urine Creatinine Urine Total Protein 11/18/16 11/19/16 10:48 03:30 WBC RBC 2.95 L Hgb 9.6 L Hct 29.4 L MCV 100 H MCH 33 H RDW 15.3 H Plt Count 115 L Lymph % (Auto) Lymph # Seg Neutrophils % Seg Neuts % (Manual) Lymphocytes % (Manual) Seg Neutrophils # Man Lymphocytes # (Manual) Percent Retic PT INR APTT Heparin Anti-Xa Level POC ABG pCO2 34.6 L POC ABG pO2 79 L Sodium Potassium Chloride Carbon Dioxide BUN Creatinine Glucose POC Glucose Calcium TIBC AST Total Creatine Kinase CK-MB (CK-2) CK-MB (CK-2) Rel Index C-Reactive Protein Total Protein Albumin Urine WBC (Auto) U Epithel Cells (Auto) Urine Creatinine Urine Total Protein Allied health notes reviewed: RT
--- NOTE | 2016-11-19 11:31 | Event Note ---
Date: 11/19/16 71 year old female with ARF who presented requiring vascath placement. Will tentatively plan for VC to PC conversion or de-jamal PC placement tomorrow. NPO after MN. [employer] lab[employer] tomorrow.
--- NOTE | 2016-11-19 11:35 | Progress Note ---
Assessment and Plan Assessment and plan: NSTEMI. [facility] this admission reports a 80% proximal OM2, 60-70% mid LAD, severe diffuse disease of a small distal RCA with left to right collaterals. Cardiology to potentially schedule coronary intervention for tomorrow. NATHALIA vs CKD. Patient initiated on dialysis this admission. Currently with Wednesday, Wednesday and Wednesday schedule. Renal ultrasound showing no hydronephrosis. Valsartan and Lasix have been discontinued. Acute decompensated systolic heart failure. Continue hemodialysis as above for volume control. Cardiology following. Transthoracic echocardiogram report by Dr. Shane read as left ventricular chamber size severely dilated, global left systolic function is severely decreased, estimated ejection fraction is 10-15%, mild concentric left ventricular hypertrophy, left atrium is severely dilated, moderate to severe MR, mild to moderate TR, evidence of mild pulmonary hypertension, trivial pericardial effusion, catheters visualizing right atrium. Anemia. EGD/Flex this admission reports mild non-erosive gastritis and hemorrhoids. GI following. GI reports no contraindication to proceeding to cardiac cath/DAPT at present. Thrombocytopenia. Patient with a drop in platelet counts overnight. Follow-up CBC in a.m. Severe Cardiomyopathy. LVEF 10-15% on echocardiogram. Moderate to severe mitral regurgitation hx CVA Hypertension. Continue antihypertensive medications. History Interval history: No new issues overnight. Hospitalist Physical - Constitutional Vitals: Temp Pulse Resp BP Pulse Ox 97.8 F 71 16 152/77 97 11/19/16 08:31 11/19/16 09:04 11/19/16 09:04 11/19/16 08:31 11/19/16 09:04 General appearance: Present: no acute distress, well-nourished - EENT Eyes: Present: PERRL, EOM intact ENT: hearing intact, clear oral mucosa, dentition normal - Neck Neck: Present: supple, normal ROM - Respiratory Respiratory effort: normal Respiratory: bilateral: CTA - Cardiovascular Rhythm: regular Heart Sounds: Present: S1 & S2. Absent: gallop, rub - Extremities Extremities: no ischemia, No edema, Full ROM - Abdominal General gastrointestinal: soft, non-tender, non-distended, normal bowel sounds - Integumentary Integumentary: Present: clear, warm, dry - Neurologic Neurologic: CNII-XII intact, moves all extremities Results - Labs CBC & Chem 7: 11/19/16 03:30 11/18/16 05:00 Labs: Laboratory Last Values WBC 9.3 K/mm3 (4.5-11.0) 11/19/16 03:30 RBC 2.95 M/mm3 (3.65-5.03) L 11/19/16 03:30 Hgb 9.6 gm/dl (10.1-14.3) L 11/19/16 03:30 Hct 29.4 % (30.3-42.9) L 11/19/16 03:30 MCV 100 fl (79-97) H 11/19/16 03:30 MCH 33 pg (28-32) H 11/19/16 03:30 MCHC 33 % (30-34) 11/19/16 03:30 RDW 15.3 % (13.2-15.2) H 11/19/16 03:30 Plt Count 115 K/mm3 (140-440) L 11/19/16 03:30 Lymph % (Auto) Cabinet Professional 11/18/16 05:00 Guthrie % (Auto) Cabinet Professional 11/18/16 05:00 Eos % (Auto) Cabinet Professional 11/18/16 05:00 Baso % (Auto) Cabinet Professional 11/18/16 05:00 Lymph # Cabinet Professional 11/18/16 05:00 Guthrie # Cabinet Professional 11/18/16 05:00 Eos # Cabinet Professional 11/18/16 05:00 Baso # Cabinet Professional 11/18/16 05:00 Add Manual Diff Complete 11/18/16 05:00 Total Counted 100 11/18/16 05:00 Seg Neutrophils % [facility] Professional 11/18/16 05:00 Seg Neuts % (Manual) 96.0 % (40.0-70.0) H 11/18/16 05:00 Band Neutrophils % 0 % 11/18/16 05:00 Lymphocytes % (Manual) 2.0 % (13.4-35.0) L 11/18/16 05:00 Reactive Lymphs % (Man) 0 % 11/18/16 05:00 Monocytes % (Manual) 2.0 % (0.0-7.3) 11/18/16 05:00 Eosinophils % (Manual) 0 % (0.0-4.3) 11/18/16 05:00 Basophils % (Manual) 0 % (0.0-1.8) 11/18/16 05:00 Metamyelocytes % 0 % 11/18/16 05:00 Myelocytes % 0 % 11/18/16 05:00 Promyelocytes % 0 % 11/18/16 05:00 Blast Cells % 0 % 11/18/16 05:00 Nucleated RBC % Not Reportable 11/18/16 05:00 Seg Neutrophils # [facility] Professional 11/18/16 05:00 Seg Neutrophils # Man 11.3 K/mm3 (1.8-7.7) H 11/18/16 05:00 Band Neutrophils # 0.0 K/mm3 11/18/16 05:00 Lymphocytes # (Manual) 0.2 K/mm3 (1.2-5.4) L 11/18/16 05:00 Abs React Lymphs (Man) 0.0 K/mm3 11/18/16 05:00 Monocytes # (Manual) 0.2 K/mm3 (0.0-0.8) 11/18/16 05:00 Eosinophils # (Manual) 0.0 K/mm3 (0.0-0.4) 11/18/16 05:00 Basophils # (Manual) 0.0 K/mm3 (0.0-0.1) 11/18/16 05:00 Metamyelocytes # 0.0 K/mm3 11/18/16 05:00 Myelocytes # 0.0 K/mm3 11/18/16 05:00 Promyelocytes # 0.0 K/mm3 11/18/16 05:00 Blast Cells # 0.0 K/mm3 11/18/16 05:00 WBC Morphology Not Reportable 11/18/16 05:00 Hypersegmented Neuts Not Reportable 11/18/16 05:00 Hyposegmented Neuts Not Reportable 11/18/16 05:00 Hypogranular Neuts Not Reportable 11/18/16 05:00 Smudge Cells Not Reportable 11/18/16 05:00 Toxic Granulation Not Reportable 11/18/16 05:00 Toxic Vacuolation Not Reportable 11/18/16 05:00 Dohle Bodies Not Reportable 11/18/16 05:00 Pelger-Huet Anomaly Not Reportable 11/18/16 05:00 Tamanna Rods Not Reportable 11/18/16 05:00 Platelet Estimate Cons 11/18/16 05:00 Clumped Platelets Not Reportable 11/18/16 05:00 Plt Clumps, EDTA Not Reportable 11/18/16 05:00 Large Platelets Not Reportable 11/18/16 05:00 Giant Platelets Not Reportable 11/18/16 05:00 Platelet Satelliting Not Reportable 11/18/16 05:00 Plt Morphology Comment Not Reportable 11/18/16 05:00 RBC Morphology Not Reportable 11/18/16 05:00 Dimorphic RBCs Not Reportable 11/18/16 05:00 Polychromasia Not Reportable 11/18/16 05:00 Hypochromasia Not Reportable 11/18/16 05:00 Poikilocytosis Not Reportable 11/18/16 05:00 Anisocytosis 1+ 11/18/16 05:00 Microcytosis Not Reportable 11/18/16 05:00 Macrocytosis Not Reportable 11/18/16 05:00 Spherocytes Not Reportable 11/18/16 05:00 Pappenheimer Bodies Not Reportable 11/18/16 05:00 Sickle Cells Not Reportable 11/18/16 05:00 Target Cells Not Reportable 11/18/16 05:00 Tear Drop Cells Not Reportable 11/18/16 05:00 Ovalocytes Not Reportable 11/18/16 05:00 Helmet Cells Not Reportable 11/18/16 05:00 Ramos-[place] Bodies Not Reportable 11/18/16 05:00 [place] Rings Not Reportable 11/18/16 05:00 [place] Cells Not Reportable 11/18/16 05:00 Bite Cells Not Reportable 11/18/16 05:00 Crenated Cell Not Reportable 11/18/16 05:00 Elliptocytes Not Reportable 11/18/16 05:00 Acanthocytes (Spur) Not Reportable 11/18/16 05:00 Rouleaux Not Reportable 11/18/16 05:00 Hemoglobin C Crystals Not Reportable 11/18/16 05:00 Schistocytes Not Reportable 11/18/16 05:00 Malaria parasites Not Reportable 11/18/16 05:00 Percent Retic 4.37 % (0.78-2.58) H 11/10/16 19:09 Javi Bodies Not Reportable 11/18/16 05:00 Hem Pathologist Commnt No 11/18/16 05:00 PT 14.4 Sec. (12.2-14.9) 11/19/16 09:15 INR 1.06 (0.87-1.13) 11/19/16 09:15 APTT 38.5 Sec. (24.2-36.6) H 11/08/16 12:04 D-Dimer 1575.53 ng/mlDDU (0-234) H 11/07/16 16:35 Heparin Anti-Xa Level 0.12 U.I./ml (0.3-0.7) L 11/10/16 07:16 POC ABG pH 7.413 (7.35-7.45) 11/18/16 10:48 POC ABG pCO2 34.6 (35-45) L 11/18/16 10:48 POC ABG pO2 79 (80-105) L 11/18/16 10:48 POC ABG HCO3 22.1 11/18/16 10:48 POC ABG Total CO2 23 11/18/16 10:48 POC ABG O2 Sat 96 11/18/16 10:48 POC ABG Base Excess -3 11/18/16 10:48 FiO2 21 % 11/18/16 10:48 Sodium 128 mmol/L (137-145) L D 11/18/16 05:00 Potassium 5.3 mmol/L (3.6-5.0) H 11/18/16 05:00 Chloride 89.7 mmol/L (98-107) L 11/18/16 05:00 Carbon Dioxide 19 mmol/L (22-30) L 11/18/16 05:00 Anion Gap 25 mmol/L 11/18/16 05:00 BUN 104 mg/dL (7-17) H 11/18/16 05:00 Creatinine 4.5 mg/dL (0.7-1.2) H 11/18/16 05:00 Estimated GFR 12 ml/min 11/18/16 05:00 BUN/Creatinine Ratio 23.11 % 11/18/16 05:00 Glucose 174 mg/dL (65-100) H 11/18/16 05:00 POC Glucose 172 (70-105) H 11/18/16 07:38 Hemoglobin A1c 4.8 % (4-6) 11/07/16 16:35 Lactic Acid 1.10 mmol/L (0.7-2.0) 11/09/16 03:19 Calcium 7.5 mg/dL (8.4-10.2) L 11/18/16 05:00 Iron 70 ug/dL (37-170) 11/10/16 18:10 TIBC 237 mcg/dL (250-450) L 11/10/16 18:10 Ferritin 211.2 ng/mL (13.0-400.0) 11/10/16 18:10 Total Bilirubin 0.40 mg/dL (0.1-1.2) 11/08/16 06:45 AST 164 units/L (5-40) H 11/08/16 06:45 ALT 47 units/L (7-56) 11/08/16 06:45 Alkaline Phosphatase 89 units/L (35-129) 11/08/16 06:45 Total Creatine Kinase 947 units/L (30-135) H 11/08/16 17:09 CK-MB (CK-2) 91.7 ng/mL (0.0-4.0) H 11/08/16 17:09 CK-MB (CK-2) Rel Index 9.6 (0-4) H 11/08/16 17:09 Troponin T 6.920 ng/mL (0.00-0.029) H* 11/07/16 18:36 C-Reactive Protein 5.80 mg/dL (0.00-1.30) H 11/08/16 17:09 NT-Pro-B Natriuret Pep 02648 pg/mL (0-900) H 11/07/16 16:35 Total Protein 5.6 g/dL (6.3-8.2) L 11/08/16 06:45 Albumin 2.5 g/dL (3.9-5) L 11/08/16 06:45 Albumin/Globulin Ratio 0.8 % 11/08/16 06:45 Triglycerides 69 mg/dL (2-149) 11/07/16 16:35 Cholesterol 129 mg/dL (50-199) 11/07/16 16:35 LDL Cholesterol Direct 56 mg/dL (50-130) 11/07/16 16:35 HDL Cholesterol 60 mg/dL (40-59) H 11/07/16 16:35 Cholesterol/HDL Ratio 2.15 % 11/07/16 16:35 TSH 4.120 mlU/mL (0.270-4.200) 11/09/16 15:38 Urine Color Yellow (Yellow) 11/08/16 13:56 Urine Turbidity Cloudy (Clear) 11/08/16 13:56 Urine pH 5.0 (5.0-7.0) 11/08/16 13:56 Ur Specific [place] 1.013 (1.003-1.030) 11/08/16 13:56 Urine Protein 100 mg/dl mg/dL (Negative) 11/08/16 13:56 Urine Glucose (UA) Neg mg/dL (Negative) 11/08/16 13:56 Urine Ketones Neg mg/dL (Negative) 11/08/16 13:56 Urine Blood Lg (Negative) 11/08/16 13:56 Urine Nitrite Neg (Negative) 11/08/16 13:56 Urine Bilirubin Neg (Negative) 11/08/16 13:56 Urine Urobilinogen < 2.0 mg/dL (<2.0) 11/08/16 13:56 Ur Leukocyte Esterase Mod (Negative) 11/08/16 13:56 Urine WBC (Auto) 25.0 /HPF (0.0-6.0) H 11/08/16 13:56 Urine RBC (Auto) > 182.0 /HPF (0.0-6.0) 11/08/16 13:56 U Epithel Cells (Auto) 20.0 /HPF (0-13.0) H 11/08/16 13:56 Urine WBC Clumps Few /HPF 11/08/16 13:56 Ur Transition Epith Cell 2 /HPF 11/08/16 13:56 Urine Creatinine 161.2 mg/dL (0.1-20.0) H 11/08/16 13:56 Protein/Creatinin Ratio 0.91 11/08/16 13:56 Urine Total Protein 146 mg/dL (5-11.8) H 11/08/16 13:56 Hep Bs Antigen Non-reactive (Negative) 11/10/16 04:32 Hepatitis C Antibody Non-reactive (NonReactive) 11/10/16 04:32
--- NOTE | 2016-11-19 13:01 | Progress Note ---
Assessment and Plan Renal failure initiated on dialysis this admission Acute systolic heart failure Anemia EGD/Flex this admission reports mild non-erosive gastritis and hemorrhoids. Thrombocytopenia NSTEMI [facility] this admission reports a 80% proximal OM2, 60-70% mid LAD, severe diffuse disease of a small distal RCA with left to right collaterals. Severe Cardiomyopathy LVEF 10-15% on echocardiogram Moderate to severe mitral regurgitation Prior CVA Hypertension Subjective Date of service: 11/19/16 Principal diagnosis: Acute Hypoxemic Respiratory Failure Interval history: Patient is resting in bed comfortably. She denies chest pain and shortness of breath. Objective Vital Signs Temp Pulse Pulse Pulse Resp Resp BP 11/19/16 09:04 71 16 11/19/16 08:50 11/19/16 08:31 97.8 F 71 16 11/19/16 04:42 98 F 71 21 11/19/16 00:33 97.7 F 71 19 11/19/16 00:00 11/18/16 22:00 79 18 11/18/16 21:46 79 172/81 11/18/16 20:49 11/18/16 20:45 79 172/81 11/18/16 20:15 78 18 11/18/16 20:08 97.8 F 80 20 11/18/16 19:59 76 18 11/18/16 17:07 79 158/84 11/18/16 17:05 79 158/84 11/18/16 17:04 79 158/84 11/18/16 14:00 97.4 F L 70 16 158/84 11/18/16 13:45 79 129/78 11/18/16 13:30 80 133/74 11/18/16 13:15 80 137/83 BP BP BP Pulse Ox 11/19/16 09:04 97 11/19/16 08:50 99 11/19/16 08:31 152/77 152/77 97 11/19/16 04:42 129/58 98 11/19/16 00:33 125/58 97 11/19/16 00:00 97 11/18/16 22:00 97 11/18/16 21:46 11/18/16 20:49 98 11/18/16 20:45 11/18/16 20:15 11/18/16 20:08 172/81 97 11/18/16 19:59 11/18/16 17:07 11/18/16 17:05 11/18/16 17:04 11/18/16 14:00 11/18/16 13:45 11/18/16 13:30 11/18/16 13:15 - Physical Examination General: No Apparent Distress HEENT: Positive: PERRL Neck: Positive: trachea midline Cardiac: Positive: Reg Rate and Rhythm - Labs and Meds Coagulation 11/19/16 Range/Units 09:15 PT 14.4 (12.2-14.9) Sec. INR 1.06 (0.87-1.13) CBC 11/19/16 Range/Units 03:30 WBC 9.3 (4.5-11.0) K/mm3 RBC 2.95 L (3.65-5.03) M/mm3 Hgb 9.6 L (10.1-14.3) gm/dl Hct 29.4 L (30.3-42.9) % Plt Count 115 L (140-440) K/mm3 - Imaging and Cardiology EKG: report reviewed (Sinus Tach pvc's LVH 119/min Repolarization abnormalities) - Allied health notes Allied health notes reviewed: RT
[2016-11-19 15:34] LABS: Heparin-Induced Platelet Antib Negative (Negative); Unfractionated Heparin Negative (Negative)
[2016-11-19] MEDS: OYSCO D 500 MG-200 UNIT PO SCH (15:50)
[2016-11-19] MEDS: PLAVIX PO SCH (15:50)
[2016-11-19] MEDS: PROTONIX PO SCH (15:51)
[2016-11-19] MEDS: APRESOLINE PO SCH ×2 (15:51→20:50)
[2016-11-19] MEDS: COREG PO SCH ×2 (15:52→21:50)
[2016-11-19] MEDS: ZESTRIL PO SCH (15:54)
[2016-11-19] MEDS: NORVASC PO SCH (15:54)
[2016-11-19] MEDS: NAMENDA XR PO SCH (15:55)
[2016-11-19] MEDS: BABY ASPIRIN PO SCH (15:55)
--- NOTE | 2016-11-19 17:14 | Progress Note ---
Assessment and Plan (1) NATHALIA vs CKD, Baseline unavailable, CRS, now requiring dialysis Current Visit: Yes Status: Acute Plan to address problem: HD on MWF schedule Renal U/S reviewed. No hydronephrosis Avoid nephrotoxics Valsartan and Lasix have been d/asher Monitor for renal recovery No signs of renal recovery at present Out patient dialysis placement at [facility] in process (2) Acute systolic congestive herat failure Current Visit: Yes Status: Acute Plan to address problem: UF on dialysis Strict I/Os 2D echo report reviewed. It showed EF of 10-15 % (3) NSTEMI (non-ST elevated myocardial infarction) Current Visit: Yes Status: Acute Plan to address problem: Management per Cardio [facility] this admission reports a 80% proximal OM2, 60-70% mid LAD, severe diffuse disease of a small distal RCA with left to right collaterals. She is scheduled for cardiac intervention tomorrow (4) Acute hypoxic respiratory failure (Pneumonia /pulmonary edema) Current Visit: Yes Status: Acute improved with dialysis fluid removal (5) Essential HTN (hypertension) Current Visit: Yes Status: Chronic Qualifiers: Hypertension type: essential hypertension Qualified Code(s): I10 - Essential (primary) hypertension Plan to address problem: Stable. (6) GI bleeding Current Visit: Yes Status: Acute EGD today (7) Dementia Current Visit: Yes Status: Chronic Qualifiers: Dementia type: vascular dementia Alzheimer's disease onset: A Dementia behavioral disturbance: D Plan to address problem: Cont Namenda Subjective Date of service: 11/19/16 Principal diagnosis: Acute Hypoxemic Respiratory Failure Interval history: No new changes, cardiac cath cancelled 2/2 drop in her platelets to 68 K --> which has now bounced up to 115K Objective - Exam Narrative Exam: General appearance: well-developed, well-nourished, appears stated age, no distress EENT: PERRL, mucous membranes moist Neck: Present: neck supple, trachea midline. Absent: JVD/HJR, Masses Respiratory: Decreased Breath Sounds, scattered wheezes Heart: regular, normal heart rate, S1S2, no murmurs Gastrointestinal: Present: normoactive bowel sounds. Absent: tenderness Integumentary: no rash, warm and dry Neurologic: no focal deficit, alert and oriented x3, gait normal, strength 5/5 Musculoskeletal: Absent: deformities, joint swelling Psychiatric: mood/affect appropriate, cooperative - Vital Signs Vital signs: Vital Signs - 12hr 11/19/16 11/19/16 11/19/16 08:31 08:50 09:04 Temperature 97.8 F Pulse Rate Pulse Rate [ Anterior Bilateral Throughout] Pulse Rate [ 71 71 Right Radial] Respiratory 16 16 Rate Respiratory Rate [Anterior Bilateral Throughout] Blood Pressure Blood Pressure 152/77 [Right Arm] Blood Pressure 152/77 [Right Radial Artery] O2 Sat by Pulse 97 99 97 Oximetry 11/19/16 11/19/16 11/19/16 13:00 14:00 14:19 Temperature 98.3 F Pulse Rate Pulse Rate [ 73 74 Anterior Bilateral Throughout] Pulse Rate [ 70 Right Radial] Respiratory 16 Rate Respiratory 17 18 Rate [Anterior Bilateral Throughout] Blood Pressure Blood Pressure [Right Arm] Blood Pressure 165/81 [Right Radial Artery] O2 Sat by Pulse 98 Oximetry 11/19/16 11/19/16 15:51 15:52 Temperature Pulse Rate 73 Pulse Rate [ Anterior Bilateral Throughout] Pulse Rate [ Right Radial] Respiratory Rate Respiratory Rate [Anterior Bilateral Throughout] Blood Pressure 165/81 165/81 Blood Pressure [Right Arm] Blood Pressure [Right Radial Artery] O2 Sat by Pulse Oximetry - Lab 11/19/16 03:30 11/18/16 05:00 Most recent lab results Calcium 7.5 mg/dL (8.4-10.2) L 11/18/16 05:00 Urine Creatinine 161.2 mg/dL (0.1-20.0) H 11/08/16 13:56 Urine Total Protein 146 mg/dL (5-11.8) H 11/08/16 13:56
[2016-11-19] MEDS: SENOKOT S PO SCH (21:49)
[2016-11-20 06:23] LABS: Hematocrit 29.9 % (30.3-42.9); Hemoglobin 9.8 gm/dl (10.1-14.3); Mean Corpuscular HGB Conc 33 % (30-34); Mean Corpuscular Hemoglobin 32 pg (28-32); Mean Corpuscular Volume 99 fl (79-97); Platelet Count 116 K/mm3 (140-440); Red Blood Count 3.03 M/mm3 (3.65-5.03); Red Cell Distribution Width 14.9 % (13.2-15.2); White Blood Count 10.1 K/mm3 (4.5-11.0)
[2016-11-20 06:37] LABS: BUN/Creatinine Ratio 27.41; Calcium 7.9 mg/dL (8.4-10.2); Chloride 95.5 mmol/L (98-107); Potassium 4.9 mmol/L (3.6-5.0)
[2016-11-20 07:16] LABS: Anisocytosis 1+; Basophils % (Manual) 0 % (0.0-1.8); Blastocytes % (Manual) 0 %; Diff Status Complete; Eosinophils % (Manual) 0 % (0.0-4.3); Hypersegmented Neutrophils 1+; Hypochromasia 1+; Platelet Estimate Consistent w Auto; Total Cells Counted Percent 0
[2016-11-20] MEDS: DUONEB *Not for PRN Use IH SCH ×3 (08:37→21:53)
--- NOTE | 2016-11-20 09:14 | Progress Note ---
Assessment and Plan (1) NATHALIA vs CKD, Baseline unavailable, CRS, now requiring dialysis Current Visit: Yes Status: Acute Plan to address problem: HD on MWF schedule Renal U/S reviewed. No hydronephrosis Avoid nephrotoxics Valsartan and Lasix have been d/asher Monitor for renal recovery No signs of renal recovery at present Out patient dialysis placement at [facility] in process (2) Acute systolic congestive herat failure Current Visit: Yes Status: Acute Plan to address problem: UF on dialysis Strict I/Os 2D echo report reviewed. It showed EF of 10-15 % (3) NSTEMI (non-ST elevated myocardial infarction) Current Visit: Yes Status: Acute Plan to address problem: Management per Cardio [facility] this admission reports a 80% proximal OM2, 60-70% mid LAD, severe diffuse disease of a small distal RCA with left to right collaterals. She is scheduled for cardiac intervention ? today. (4) Acute hypoxic respiratory failure (Pneumonia /pulmonary edema) Current Visit: Yes Status: Acute improved with dialysis fluid removal (5) Essential HTN (hypertension) Current Visit: Yes Status: Chronic Qualifiers: Hypertension type: essential hypertension Qualified Code(s): I10 - Essential (primary) hypertension Plan to address problem: Stable. (6) GI bleeding Current Visit: Yes Status: Acute EGD today (7) Dementia Current Visit: Yes Status: Chronic Qualifiers: Dementia type: vascular dementia Alzheimer's disease onset: A Dementia behavioral disturbance: D Plan to address problem: Cont Namenda Subjective Date of service: 11/20/16 Principal diagnosis: Acute Hypoxemic Respiratory Failure Interval history: No new changes. No SOB/CP at this time Objective - Exam Narrative Exam: General appearance: well-developed, well-nourished, appears stated age, no distress EENT: PERRL, mucous membranes moist Neck: Present: neck supple, trachea midline. Absent: JVD/HJR, Masses Respiratory: Decreased Breath Sounds, scattered wheezes Heart: regular, normal heart rate, S1S2, no murmurs Gastrointestinal: Present: normoactive bowel sounds. Absent: tenderness Integumentary: no rash, warm and dry Neurologic: no focal deficit, alert and oriented x3, gait normal, strength 5/5 Musculoskeletal: Absent: deformities, joint swelling Psychiatric: mood/affect appropriate, cooperative - Vital Signs Vital signs: Vital Signs - 12hr 11/19/16 11/19/16 11/20/16 21:50 22:00 00:34 Temperature 98 F Pulse Rate 82 74 Pulse Rate [ Anterior Bilateral Throughout] Pulse Rate [ 81 Right Radial] Respiratory 20 Rate Respiratory Rate [Anterior Bilateral Throughout] Blood Pressure 110/53 Blood Pressure 106/55 [Left Radial Artery] O2 Sat by Pulse 96 93 Oximetry 11/20/16 11/20/16 11/20/16 05:23 08:37 08:47 Temperature 97.8 F Pulse Rate Pulse Rate [ 72 70 Anterior Bilateral Throughout] Pulse Rate [ 73 Right Radial] Respiratory 19 Rate Respiratory 18 18 Rate [Anterior Bilateral Throughout] Blood Pressure Blood Pressure 130/70 [Left Radial Artery] O2 Sat by Pulse 95 98 Oximetry - Lab 11/20/16 05:50 11/20/16 05:50 Most recent lab results Calcium 7.9 mg/dL (8.4-10.2) L 11/20/16 05:50 Urine Creatinine 161.2 mg/dL (0.1-20.0) H 11/08/16 13:56 Urine Total Protein 146 mg/dL (5-11.8) H 11/08/16 13:56
--- NOTE | 2016-11-20 09:20 | Progress Note ---
Subjective Date of service: 11/20/16 Principal diagnosis: Acute Hypoxemic Respiratory Failure Interval history: Seen and examined at bedside; 24 hour events reviewed; nursing and respiratory care staff consulted; no adverse overnight events reported to me; Objective Vital Signs - 12hr 11/19/16 11/19/16 11/20/16 21:50 22:00 00:34 Temperature 98 F Pulse Rate 82 74 Pulse Rate [ Anterior Bilateral Throughout] Pulse Rate [ 81 Right Radial] Respiratory 20 Rate Respiratory Rate [Anterior Bilateral Throughout] Blood Pressure 110/53 Blood Pressure 106/55 [Left Radial Artery] O2 Sat by Pulse 96 93 Oximetry 11/20/16 11/20/16 11/20/16 05:23 08:00 08:37 Temperature 97.8 F 97.6 F Pulse Rate Pulse Rate [ 72 Anterior Bilateral Throughout] Pulse Rate [ 73 68 Right Radial] Respiratory 19 18 Rate Respiratory 18 Rate [Anterior Bilateral Throughout] Blood Pressure Blood Pressure 130/70 142/67 [Left Radial Artery] O2 Sat by Pulse 95 98 98 Oximetry 11/20/16 08:47 Temperature Pulse Rate Pulse Rate [ 70 Anterior Bilateral Throughout] Pulse Rate [ Right Radial] Respiratory Rate Respiratory 18 Rate [Anterior Bilateral Throughout] Blood Pressure Blood Pressure [Left Radial Artery] O2 Sat by Pulse Oximetry Constitutional: no acute distress, alert Eyes: non-icteric ENT: oropharynx moist Neck: supple, no JVD Effort: normal Ascultation: Bilateral: diminished breath sounds, rales (basila) Cardiovascular: regular rate and rhythm Gastrointestinal: normoactive bowel sounds, soft, non-distended Integumentary: normal Extremities: no cyanosis, no edema, pink and warm, pulses normal, no ischemia or petechiae Neurologic: normal mental status, non-focal exam, CN II-XII normal Psychiatric: mood appropriate, affect normal CBC and BMP: 11/20/16 05:50 11/20/16 05:50 ABG, PT/INR, D-dimer: ABG POC ABG pH 7.413 (7.35-7.45) 11/18/16 10:48 POC ABG pCO2 34.6 (35-45) L 11/18/16 10:48 POC ABG pO2 79 (80-105) L 11/18/16 10:48 POC ABG HCO3 22.1 11/18/16 10:48 POC ABG Total CO2 23 11/18/16 10:48 POC ABG O2 Sat 96 11/18/16 10:48 PT/INR, D-dimer PT 14.4 Sec. (12.2-14.9) 11/19/16 09:15 INR 1.06 (0.87-1.13) 11/19/16 09:15 D-Dimer 1575.53 ng/mlDDU (0-234) H 11/07/16 16:35 Abnormal lab findings: Abnormal Labs 11/07/16 11/08/16 11/08/16 21:43 06:45 06:45 WBC RBC 2.37 L Hgb 7.6 L Hct 23.3 L D MCV 98 H MCH RDW Plt Count Lymph % (Auto) 8.0 L Lymph # 0.5 L Seg Neutrophils % 89.2 H Seg Neuts % (Manual) Lymphocytes % (Manual) Seg Neutrophils # Man Lymphocytes # (Manual) Percent Retic PT INR APTT Heparin Anti-Xa Level POC ABG pCO2 POC ABG pO2 Sodium Potassium Chloride Carbon Dioxide 17 L BUN 52 H Creatinine 3.3 H Glucose 263 H POC Glucose Calcium TIBC AST 164 H Total Creatine Kinase 1584 H CK-MB (CK-2) 268.6 H CK-MB (CK-2) Rel Index 16.9 H C-Reactive Protein Total Protein 5.6 L Albumin 2.5 L Urine WBC (Auto) U Epithel Cells (Auto) Urine Creatinine Urine Total Protein 11/08/16 11/08/16 11/08/16 06:45 12:04 12:04 WBC RBC Hgb 8.0 L Hct 23.7 L MCV MCH RDW Plt Count Lymph % (Auto) Lymph # Seg Neutrophils % Seg Neuts % (Manual) Lymphocytes % (Manual) Seg Neutrophils # Man Lymphocytes # (Manual) Percent Retic PT 16.5 H INR 1.34 H APTT 38.5 H Heparin Anti-Xa Level POC ABG pCO2 POC ABG pO2 Sodium Potassium Chloride Carbon Dioxide BUN Creatinine Glucose POC Glucose Calcium TIBC AST Total Creatine Kinase 1273 H CK-MB (CK-2) 182.7 H CK-MB (CK-2) Rel Index 14.3 H C-Reactive Protein Total Protein Albumin Urine WBC (Auto) U Epithel Cells (Auto) Urine Creatinine Urine Total Protein 11/08/16 11/08/16 11/08/16 13:56 13:56 17:09 WBC RBC Hgb Hct MCV MCH RDW Plt Count Lymph % (Auto) Lymph # Seg Neutrophils % Seg Neuts % (Manual) Lymphocytes % (Manual) Seg Neutrophils # Man Lymphocytes # (Manual) Percent Retic PT INR APTT Heparin Anti-Xa Level POC ABG pCO2 POC ABG pO2 Sodium Potassium Chloride Carbon Dioxide BUN Creatinine Glucose POC Glucose Calcium TIBC AST Total Creatine Kinase 947 H CK-MB (CK-2) 91.7 H CK-MB (CK-2) Rel Index 9.6 H C-Reactive Protein Total Protein Albumin Urine WBC (Auto) 25.0 H U Epithel Cells (Auto) 20.0 H Urine Creatinine 161.2 H Urine Total Protein 146 H 11/08/16 11/09/16 11/09/16 17:09 03:19 07:04 WBC RBC Hgb 8.6 L Hct 26.1 L MCV MCH RDW Plt Count Lymph % (Auto) Lymph # Seg Neutrophils % Seg Neuts % (Manual) Lymphocytes % (Manual) Seg Neutrophils # Man Lymphocytes # (Manual) Percent Retic PT INR APTT Heparin Anti-Xa Level POC ABG pCO2 POC ABG pO2 Sodium 135 L Potassium 5.7 H D Chloride Carbon Dioxide 15 L BUN 70 H Creatinine 5.0 H D Glucose 169 H POC Glucose Calcium 7.9 L TIBC AST Total Creatine Kinase CK-MB (CK-2) CK-MB (CK-2) Rel Index C-Reactive Protein 5.80 H Total Protein Albumin Urine WBC (Auto) U Epithel Cells (Auto) Urine Creatinine Urine Total Protein 11/09/16 11/10/16 11/10/16 21:00 04:32 07:16 WBC RBC Hgb 8.4 L Hct 25.6 L MCV MCH RDW Plt Count 111 L Lymph % (Auto) Lymph # Seg Neutrophils % Seg Neuts % (Manual) Lymphocytes % (Manual) Seg Neutrophils # Man Lymphocytes # (Manual) Percent Retic PT INR APTT Heparin Anti-Xa Level 0.91 H 0.12 L POC ABG pCO2 POC ABG pO2 Sodium Potassium Chloride Carbon Dioxide BUN Creatinine Glucose POC Glucose Calcium TIBC AST Total Creatine Kinase CK-MB (CK-2) CK-MB (CK-2) Rel Index C-Reactive Protein Total Protein Albumin Urine WBC (Auto) U Epithel Cells (Auto) Urine Creatinine Urine Total Protein 11/10/16 11/10/16 11/10/16 10:05 18:10 19:09 WBC RBC Hgb Hct MCV MCH RDW Plt Count Lymph % (Auto) Lymph # Seg Neutrophils % Seg Neuts % (Manual) Lymphocytes % (Manual) Seg Neutrophils # Man Lymphocytes # (Manual) Percent Retic 4.37 H PT INR APTT Heparin Anti-Xa Level POC ABG pCO2 POC ABG pO2 Sodium Potassium Chloride 97.2 L Carbon Dioxide BUN 62 H Creatinine 4.4 H Glucose 206 H POC Glucose Calcium 7.0 L TIBC 237 L AST Total Creatine Kinase CK-MB (CK-2) CK-MB (CK-2) Rel Index C-Reactive Protein Total Protein Albumin Urine WBC (Auto) U Epithel Cells (Auto) Urine Creatinine Urine Total Protein 11/13/16 11/13/16 11/13/16 04:47 04:47 05:48 WBC RBC 2.82 L Hgb 9.1 L Hct 27.8 L MCV 99 H MCH RDW Plt Count 89 L Lymph % (Auto) Lymph # Seg Neutrophils % Seg Neuts % (Manual) 92.0 H Lymphocytes % (Manual) 5.0 L Seg Neutrophils # Man 7.8 H Lymphocytes # (Manual) 0.4 L Percent Retic PT INR APTT Heparin Anti-Xa Level POC ABG pCO2 POC ABG pO2 Sodium Potassium Chloride 96.8 L Carbon Dioxide BUN 60 H Creatinine 3.6 H Glucose 175 H POC Glucose 174 H Calcium 7.1 L TIBC AST Total Creatine Kinase CK-MB (CK-2) CK-MB (CK-2) Rel Index C-Reactive Protein Total Protein Albumin Urine WBC (Auto) U Epithel Cells (Auto) Urine Creatinine Urine Total Protein 11/14/16 11/16/16 11/16/16 08:49 05:29 16:38 WBC RBC Hgb Hct MCV MCH RDW Plt Count Lymph % (Auto) Lymph # Seg Neutrophils % Seg Neuts % (Manual) Lymphocytes % (Manual) Seg Neutrophils # Man Lymphocytes # (Manual) Percent Retic PT INR APTT Heparin Anti-Xa Level POC ABG pCO2 POC ABG pO2 Sodium 136 L 132 L Potassium Chloride 94.4 L 90.7 L Carbon Dioxide 19 L BUN 92 H 136 H Creatinine 4.5 H 5.0 H Glucose 196 H 223 H POC Glucose 143 H Calcium 7.2 L 7.3 L TIBC AST Total Creatine Kinase CK-MB (CK-2) CK-MB (CK-2) Rel Index C-Reactive Protein Total Protein Albumin Urine WBC (Auto) U Epithel Cells (Auto) Urine Creatinine Urine Total Protein 11/17/16 11/17/16 11/17/16 05:42 05:42 21:08 WBC RBC 2.93 L Hgb 9.7 L Hct 28.8 L MCV 98 H MCH 33 H RDW 15.5 H Plt Count 105 L Lymph % (Auto) Lymph # Seg Neutrophils % Seg Neuts % (Manual) Lymphocytes % (Manual) Seg Neutrophils # Man Lymphocytes # (Manual) Percent Retic PT INR APTT Heparin Anti-Xa Level POC ABG pCO2 POC ABG pO2 Sodium 136 L Potassium Chloride 94.4 L Carbon Dioxide BUN 78 H Creatinine 3.4 H Glucose 204 H POC Glucose 190 H Calcium 7.5 L TIBC AST Total Creatine Kinase CK-MB (CK-2) CK-MB (CK-2) Rel Index C-Reactive Protein Total Protein Albumin Urine WBC (Auto) U Epithel Cells (Auto) Urine Creatinine Urine Total Protein 11/18/16 11/18/16 11/18/16 05:00 05:00 07:38 WBC 11.8 H RBC 3.01 L Hgb 9.7 L Hct MCV 101 H MCH RDW 15.5 H Plt Count 68 L Lymph % (Auto) Lymph # Seg Neutrophils % Seg Neuts % (Manual) 96.0 H Lymphocytes % (Manual) 2.0 L Seg Neutrophils # Man 11.3 H Lymphocytes # (Manual) 0.2 L Percent Retic PT INR APTT Heparin Anti-Xa Level POC ABG pCO2 POC ABG pO2 Sodium 128 L D Potassium 5.3 H Chloride 89.7 L Carbon Dioxide 19 L BUN 104 H Creatinine 4.5 H Glucose 174 H POC Glucose 172 H Calcium 7.5 L TIBC AST Total Creatine Kinase CK-MB (CK-2) CK-MB (CK-2) Rel Index C-Reactive Protein Total Protein Albumin Urine WBC (Auto) U Epithel Cells (Auto) Urine Creatinine Urine Total Protein 11/18/16 11/19/16 11/19/16 10:48 03:30 20:41 WBC RBC 2.95 L Hgb 9.6 L Hct 29.4 L MCV 100 H MCH 33 H RDW 15.3 H Plt Count 115 L Lymph % (Auto) Lymph # Seg Neutrophils % Seg Neuts % (Manual) Lymphocytes % (Manual) Seg Neutrophils # Man Lymphocytes # (Manual) Percent Retic PT INR APTT Heparin Anti-Xa Level POC ABG pCO2 34.6 L POC ABG pO2 79 L Sodium Potassium Chloride Carbon Dioxide BUN Creatinine Glucose POC Glucose 309 H Calcium TIBC AST Total Creatine Kinase CK-MB (CK-2) CK-MB (CK-2) Rel Index C-Reactive Protein Total Protein Albumin Urine WBC (Auto) U Epithel Cells (Auto) Urine Creatinine Urine Total Protein 11/20/16 11/20/16 11/20/16 05:50 05:50 07:41 WBC RBC 3.03 L Hgb 9.8 L Hct 29.9 L MCV 99 H MCH RDW Plt Count 116 L Lymph % (Auto) Lymph # Seg Neutrophils % Seg Neuts % (Manual) 96.0 H Lymphocytes % (Manual) 2.0 L Seg Neutrophils # Man 9.7 H Lymphocytes # (Manual) 0.2 L Percent Retic PT INR APTT Heparin Anti-Xa Level POC ABG pCO2 POC ABG pO2 Sodium 132 L Potassium Chloride 95.5 L Carbon Dioxide BUN 85 H Creatinine 3.1 H Glucose 199 H POC Glucose 182 H Calcium 7.9 L TIBC AST Total Creatine Kinase CK-MB (CK-2) CK-MB (CK-2) Rel Index C-Reactive Protein Total Protein Albumin Urine WBC (Auto) U Epithel Cells (Auto) Urine Creatinine Urine Total Protein Allied health notes reviewed: RT
--- NOTE | 2016-11-20 11:24 | Progress Note ---
Assessment and Plan Renal failure initiated on dialysis this admission Pulmonary edema, elevated LVEDP measured at 44 mm Hg consistent with acute decompensated systolic heart failure Anemia + FOBT GI on board, EGD and flex this admission reports mild erosive gastritis and hemorrhoids Thrombocytopenia with a fluctuating plt count NSTEMI 80% proximal OM2, 60-70% mid LAD, severe diffuse disease of a small distal RCA with left to right collaterals Cardiomyopathy, LVEF 10-15% Moderate to severe mitral regurgitation Prior CVA Hypertension Plan: PCI was put on hold initially due to anemia, and lately due to thrombocytopenia. Suggest to avoid the use of heparin during HD if possible Check HIT antibodies and obtain a hematology consult prior to PCI Subjective Date of service: 11/20/16 Principal diagnosis: Acute Hypoxemic Respiratory Failure Interval history: Patient denies chest pain or shortness of breath Objective Vital Signs Temp Pulse Pulse Pulse Resp Resp BP 11/20/16 08:47 70 18 11/20/16 08:37 72 18 11/20/16 08:00 97.6 F 68 18 11/20/16 05:23 97.8 F 73 19 11/20/16 00:34 98 F 81 20 11/19/16 22:00 74 11/19/16 21:50 82 110/53 11/19/16 20:15 83 20 11/19/16 20:05 97.3 F L 76 21 11/19/16 20:04 11/19/16 20:03 87 20 11/19/16 15:52 73 165/81 11/19/16 15:51 165/81 11/19/16 14:19 74 18 11/19/16 14:00 73 17 11/19/16 13:00 98.3 F 70 16 BP BP Pulse Ox 11/20/16 08:47 11/20/16 08:37 98 11/20/16 08:00 142/67 98 11/20/16 05:23 130/70 95 11/20/16 00:34 106/55 93 11/19/16 22:00 96 11/19/16 21:50 11/19/16 20:15 11/19/16 20:05 125/60 96 11/19/16 20:04 99 11/19/16 20:03 11/19/16 15:52 11/19/16 15:51 11/19/16 14:19 11/19/16 14:00 11/19/16 13:00 165/81 98 - Physical Examination General: No Apparent Distress HEENT: Positive: PERRL Neck: Positive: trachea midline Cardiac: Positive: Reg Rate and Rhythm Lungs: Positive: Normal Exam Neuro: Positive: Grossly Intact Abdomen: Positive: Soft, Active Bowel Sounds Skin: Positive: Clear Extremities: Present: +1 Edema - Labs and Meds CBC 11/20/16 Range/Units 05:50 WBC 10.1 (4.5-11.0) K/mm3 RBC 3.03 L (3.65-5.03) M/mm3 Hgb 9.8 L (10.1-14.3) gm/dl Hct 29.9 L (30.3-42.9) % Plt Count 116 L (140-440) K/mm3 Comprehensive Metabolic Panel 11/20/16 Range/Units 05:50 Sodium 132 L (137-145) mmol/L Potassium 4.9 (3.6-5.0) mmol/L Chloride 95.5 L (98-107) mmol/L Carbon Dioxide 23 (22-30) mmol/L BUN 85 H (7-17) mg/dL Creatinine 3.1 H (0.7-1.2) mg/dL Glucose 199 H (65-100) mg/dL Calcium 7.9 L (8.4-10.2) mg/dL - Imaging and Cardiology EKG: report reviewed (Sinus Tach pvc's LVH 119/min Repolarization abnormalities) - Allied health notes Allied health notes reviewed: RT
--- NOTE | 2016-11-20 12:13 | Progress Note ---
Assessment and Plan Assessment and plan: NSTEMI. [place] this admission reports a 80% proximal OM2, 60-70% mid LAD, severe diffuse disease of a small distal RCA with left to right collaterals. Cardiology to potentially schedule coronary intervention for tomorrow. [place] vs CKD. Patient initiated on dialysis this admission. Currently with Wednesday, Wednesday and Wednesday schedule. Renal ultrasound showing no hydronephrosis. Valsartan and Lasix have been discontinued. Acute decompensated systolic heart failure. Continue hemodialysis as above for volume control. Cardiology following. Transthoracic echocardiogram report by Dr. Shane read as left ventricular chamber size severely dilated, global left systolic function is severely decreased, estimated ejection fraction is 10-15%, mild concentric left ventricular hypertrophy, left atrium is severely dilated, moderate to severe MR, mild to moderate TR, evidence of mild pulmonary hypertension, trivial pericardial effusion, catheters visualizing right atrium. Anemia. EGD/Flex this admission reports mild non-erosive gastritis and hemorrhoids. GI following. GI reports no contraindication to proceeding to cardiac cath/DAPT at present. Thrombocytopenia. Hematology consultation. Check HIT panel. Follow-up CBC in a.m. Severe Cardiomyopathy. LVEF 10-15% on echocardiogram. Moderate to severe mitral regurgitation hx CVA Hypertension. Continue antihypertensive medications. History Interval history: No new issues overnight. Hospitalist Physical - Constitutional Vitals: Temp Pulse Resp BP Pulse Ox 97.6 F 70 18 142/67 98 11/20/16 08:00 11/20/16 08:47 11/20/16 08:47 11/20/16 08:00 11/20/16 11:55 General appearance: Present: no acute distress, well-nourished - EENT Eyes: Present: PERRL, EOM intact ENT: hearing intact, clear oral mucosa, dentition normal - Neck Neck: Present: supple, normal ROM - Respiratory Respiratory effort: normal Respiratory: bilateral: CTA - Cardiovascular Rhythm: regular Heart Sounds: Present: S1 & S2. Absent: gallop, rub - Extremities Extremities: no ischemia, No edema, Full ROM - Abdominal General gastrointestinal: soft, non-tender, non-distended, normal bowel sounds - Integumentary Integumentary: Present: clear, warm, dry - Neurologic Neurologic: CNII-XII intact, moves all extremities Results - Labs CBC & Chem 7: 11/20/16 05:50 11/20/16 05:50 Labs: Laboratory Last Values WBC 10.1 K/mm3 (4.5-11.0) 11/20/16 05:50 RBC 3.03 M/mm3 (3.65-5.03) L 11/20/16 05:50 Hgb 9.8 gm/dl (10.1-14.3) L 11/20/16 05:50 Hct 29.9 % (30.3-42.9) L 11/20/16 05:50 MCV 99 fl (79-97) H 11/20/16 05:50 MCH 32 pg (28-32) 11/20/16 05:50 MCHC 33 % (30-34) 11/20/16 05:50 RDW 14.9 % (13.2-15.2) 11/20/16 05:50 Plt Count 116 K/mm3 (140-440) L 11/20/16 05:50 Lymph % (Auto) Lead Qa Analyst 11/18/16 05:00 [place] % (Auto) Lead Qa Analyst 11/18/16 05:00 Eos % (Auto) Lead Qa Analyst 11/18/16 05:00 Baso % (Auto) Lead Qa Analyst 11/18/16 05:00 Lymph # Lead Qa Analyst 11/18/16 05:00 [place] # Lead Qa Analyst 11/18/16 05:00 Eos # Lead Qa Analyst 11/18/16 05:00 Baso # Lead Qa Analyst 11/18/16 05:00 Add Manual Diff Complete 11/20/16 05:50 Total Counted 100 11/20/16 05:50 Seg Neutrophils % Lead Qa Analyst 11/20/16 05:50 Seg Neuts % (Manual) 96.0 % (40.0-70.0) H 11/20/16 05:50 Band Neutrophils % 2.0 % 11/20/16 05:50 Lymphocytes % (Manual) 2.0 % (13.4-35.0) L 11/20/16 05:50 Reactive Lymphs % (Man) 0 % 11/20/16 05:50 Monocytes % (Manual) 0 % (0.0-7.3) 11/20/16 05:50 Eosinophils % (Manual) 0 % (0.0-4.3) 11/20/16 05:50 Basophils % (Manual) 0 % (0.0-1.8) 11/20/16 05:50 Metamyelocytes % 0 % 11/20/16 05:50 Myelocytes % 0 % 11/20/16 05:50 Promyelocytes % 0 % 11/20/16 05:50 Blast Cells % 0 % 11/20/16 05:50 Nucleated RBC % Not Reportable 11/20/16 05:50 Seg Neutrophils # Lead Qa Analyst 11/18/16 05:00 Seg Neutrophils # Man 9.7 K/mm3 (1.8-7.7) H 11/20/16 05:50 Band Neutrophils # 0.2 K/mm3 11/20/16 05:50 Lymphocytes # (Manual) 0.2 K/mm3 (1.2-5.4) L 11/20/16 05:50 Abs React Lymphs (Man) 0.0 K/mm3 11/20/16 05:50 Monocytes # (Manual) 0.0 K/mm3 (0.0-0.8) 11/20/16 05:50 Eosinophils # (Manual) 0.0 K/mm3 (0.0-0.4) 11/20/16 05:50 Basophils # (Manual) 0.0 K/mm3 (0.0-0.1) 11/20/16 05:50 Metamyelocytes # 0.0 K/mm3 11/20/16 05:50 Myelocytes # 0.0 K/mm3 11/20/16 05:50 Promyelocytes # 0.0 K/mm3 11/20/16 05:50 Blast Cells # 0.0 K/mm3 11/20/16 05:50 WBC Morphology Not Reportable 11/20/16 05:50 Hypersegmented Neuts 1+ 11/20/16 05:50 Hyposegmented Neuts Not Reportable 11/20/16 05:50 Hypogranular Neuts Not Reportable 11/20/16 05:50 Smudge Cells Not Reportable 11/20/16 05:50 Toxic Granulation Not Reportable 11/20/16 05:50 Toxic Vacuolation Not Reportable 11/20/16 05:50 Dohle Bodies Not Reportable 11/20/16 05:50 Pelger-Huet Anomaly Not Reportable 11/20/16 05:50 Tamanna Rods Not Reportable 11/20/16 05:50 Platelet Estimate Consistent w auto 11/20/16 05:50 Clumped Platelets Not Reportable 11/20/16 05:50 Plt Clumps, EDTA Not Reportable 11/20/16 05:50 Large Platelets Not Reportable 11/20/16 05:50 Giant Platelets Not Reportable 11/20/16 05:50 Platelet Satelliting Not Reportable 11/20/16 05:50 Plt Morphology Comment Not Reportable 11/20/16 05:50 RBC Morphology Not Reportable 11/20/16 05:50 Dimorphic RBCs Not Reportable 11/20/16 05:50 Polychromasia Not Reportable 11/20/16 05:50 Hypochromasia 1+ 11/20/16 05:50 Poikilocytosis Not Reportable 11/20/16 05:50 Anisocytosis 1+ 11/20/16 05:50 Microcytosis Not Reportable 11/20/16 05:50 Macrocytosis Not Reportable 11/20/16 05:50 Spherocytes Not Reportable 11/20/16 05:50 Pappenheimer Bodies Not Reportable 11/20/16 05:50 Sickle Cells Not Reportable 11/20/16 05:50 Target Cells Not Reportable 11/20/16 05:50 Tear Drop Cells Not Reportable 11/20/16 05:50 Ovalocytes Not Reportable 11/20/16 05:50 Helmet Cells Not Reportable 11/20/16 05:[address] [place] Bodies Not Reportable 11/20/16 05:50 [place] Rings Not Reportable 11/20/16 05:50 Renny Cells Not Reportable 11/20/16 05:50 Bite Cells Not Reportable 11/20/16 05:50 Crenated Cell Not Reportable 11/20/16 05:50 Elliptocytes Not Reportable 11/20/16 05:50 Acanthocytes (Spur) Not Reportable 11/20/16 05:50 Rouleaux Not Reportable 11/20/16 05:50 Hemoglobin C Crystals Not Reportable 11/20/16 05:50 Schistocytes Not Reportable 11/20/16 05:50 Malaria parasites Not Reportable 11/20/16 05:50 Percent Retic 4.37 % (0.78-2.58) H 11/10/16 19:09 Javi Bodies Not Reportable 11/20/16 05:50 Hem Pathologist Commnt No 11/20/16 05:50 PT 14.4 Sec. (12.2-14.9) 11/19/16 09:15 INR 1.06 (0.87-1.13) 11/19/16 09:15 APTT 38.5 Sec. (24.2-36.6) H 11/08/16 12:04 D-Dimer 1575.53 ng/mlDDU (0-234) H 11/07/16 16:35 Heparin Anti-Xa Level 0.12 U.I./ml (0.3-0.7) L 11/10/16 07:16 Heparin Anti-Xa, Unfract Negative (Negative) 11/17/16 09:17 POC ABG pH 7.413 (7.35-7.45) 11/18/16 10:48 POC ABG pCO2 34.6 (35-45) L 11/18/16 10:48 POC ABG pO2 79 (80-105) L 11/18/16 10:48 POC ABG HCO3 22.1 11/18/16 10:48 POC ABG Total CO2 23 11/18/16 10:48 POC ABG O2 Sat 96 11/18/16 10:48 POC ABG Base Excess -3 11/18/16 10:48 FiO2 21 % 11/18/16 10:48 Sodium 132 mmol/L (137-145) L 11/20/16 05:50 Potassium 4.9 mmol/L (3.6-5.0) 11/20/16 05:50 Chloride 95.5 mmol/L (98-107) L 11/20/16 05:50 Carbon Dioxide 23 mmol/L (22-30) 11/20/16 05:50 Anion Gap 18 mmol/L 11/20/16 05:50 BUN 85 mg/dL (7-17) H 11/20/16 05:50 Creatinine 3.1 mg/dL (0.7-1.2) H 11/20/16 05:50 Estimated GFR 18 ml/min 11/20/16 05:50 BUN/Creatinine Ratio 27.41 % 11/20/16 05:50 Glucose 199 mg/dL (65-100) H 11/20/16 05:50 POC Glucose 182 (70-105) H 11/20/16 07:41 Hemoglobin A1c 4.8 % (4-6) 11/07/16 16:35 Lactic Acid 1.10 mmol/L (0.7-2.0) 11/09/16 03:19 Calcium 7.9 mg/dL (8.4-10.2) L 11/20/16 05:50 Iron 70 ug/dL (37-170) 11/10/16 18:10 TIBC 237 mcg/dL (250-450) L 11/10/16 18:10 Ferritin 211.2 ng/mL (13.0-400.0) 11/10/16 18:10 Total Bilirubin 0.40 mg/dL (0.1-1.2) 11/08/16 06:45 AST 164 units/L (5-40) H 11/08/16 06:45 ALT 47 units/L (7-56) 11/08/16 06:45 Alkaline Phosphatase 89 units/L (35-129) 11/08/16 06:45 Total Creatine Kinase 947 units/L (30-135) H 11/08/16 17:09 CK-MB (CK-2) 91.7 ng/mL (0.0-4.0) H 11/08/16 17:09 CK-MB (CK-2) Rel Index 9.6 (0-4) H 11/08/16 17:09 Troponin T 6.920 ng/mL (0.00-0.029) H* 11/07/16 18:36 C-Reactive Protein 5.80 mg/dL (0.00-1.30) H 11/08/16 17:09 NT-Pro-B Natriuret Pep 37473 pg/mL (0-900) H 11/07/16 16:35 Total Protein 5.6 g/dL (6.3-8.2) L 11/08/16 06:45 Albumin 2.5 g/dL (3.9-5) L 11/08/16 06:45 Albumin/Globulin Ratio 0.8 % 11/08/16 06:45 Triglycerides 69 mg/dL (2-149) 11/07/16 16:35 Cholesterol 129 mg/dL (50-199) 11/07/16 16:35 LDL Cholesterol Direct 56 mg/dL (50-130) 11/07/16 16:35 HDL Cholesterol 60 mg/dL (40-59) H 11/07/16 16:35 Cholesterol/HDL Ratio 2.15 % 11/07/16 16:35 TSH 4.120 mlU/mL (0.270-4.200) 11/09/16 15:38 Urine Color Yellow (Yellow) 11/08/16 13:56 Urine Turbidity Cloudy (Clear) 11/08/16 13:56 Urine pH 5.0 (5.0-7.0) 11/08/16 13:56 Ur Specific [place] 1.013 (1.003-1.030) 11/08/16 13:56 Urine Protein 100 mg/dl mg/dL (Negative) 11/08/16 13:56 Urine Glucose (UA) Neg mg/dL (Negative) 11/08/16 13:56 Urine Ketones Neg mg/dL (Negative) 11/08/16 13:56 Urine Blood Lg (Negative) 11/08/16 13:56 Urine Nitrite Neg (Negative) 11/08/16 13:56 Urine Bilirubin Neg (Negative) 11/08/16 13:56 Urine Urobilinogen < 2.0 mg/dL (<2.0) 11/08/16 13:56 Ur Leukocyte Esterase Mod (Negative) 11/08/16 13:56 Urine WBC (Auto) 25.0 /HPF (0.0-6.0) H 11/08/16 13:56 Urine RBC (Auto) > 182.0 /HPF (0.0-6.0) 11/08/16 13:56 U Epithel Cells (Auto) 20.0 /HPF (0-13.0) H 11/08/16 13:56 Urine WBC Clumps Few /HPF 11/08/16 13:56 Ur Transition Epith Cell 2 /HPF 11/08/16 13:56 Urine Creatinine 161.2 mg/dL (0.1-20.0) H 11/08/16 13:56 Protein/Creatinin Ratio 0.91 11/08/16 13:56 Urine Total Protein 146 mg/dL (5-11.8) H 11/08/16 13:56 Heparin-induced Plt Ab Negative (Negative) 11/17/16 09:17 UF Heparin High Dose 0 % Release 11/17/16 09:17 EREN UFH Low Dose 0.1 0 % Release 11/17/16 09:17 EREN UFH Low Dose 0.5 0 % Release 11/17/16 09:17 Hep Bs Antigen Non-reactive (Negative) 11/10/16 04:32 Hepatitis C Antibody Non-reactive (NonReactive) 11/10/16 04:32
[2016-11-20] MEDS ORDERED: ANCEF/STERILE WATER 2 GM/20 ML 2 GM/20 ML SYRINGE IV ONE (15:17)
[2016-11-20] MEDS ORDERED: HEPARIN 10,000 UNITS/10 ML ONE (15:17)
[2016-11-20] MEDS ORDERED: XYLOCAINE 1%/ EPI 1:100,000 INFILTRATI ONE (15:17)
[2016-11-20] MEDS ORDERED: NACL 0.9% 500 ML 500 ML ONE (15:17)
[2016-11-20] MEDS ORDERED: HEPARIN/NS 5000 UNIT/500ML(CATH LAB) 500 ML IR ONE (15:17)
[2016-11-20] MEDS ORDERED: SUBLIMAZE ONE (15:29)
--- NOTE | 2016-11-20 16:29 | Operative Report ---
Operative Report Operative Report: EXAM: 1. Fluoroscopic-guided conversion of a right internal jugular non-tunneled non- cuffed hemodialysis catheter to a tunneled cuffed hemodialysis catheter. DATE: 11/20/16 INDICATION: End-stage renal disease requiring hemodialysis access. MEDICATIONS: Please see nursing report for full details. DEVICES: 19 cm tip to cuff dual lumen hemodialysis catheter COMPOSITE LAYUP WORKER: NED OSBORN MD CONTRAST: None PROCEDURE: The risks, benefits, and alternatives were discussed and informed consent was obtained by the patient's daughter. The patient was transported to the angiography suite in satisfactory/stable condition and was transported onto the angiography table. The patient was prepped and draped in a sterile fashion. The existing vascath was prepped and draped in a sterile fashion. Suture was cut. 0.035 inch wire was advanced through the Vas-Cath into the IVC. Vas-Cath was removed. The wire was cleaned with ChloraPrep. Over the 0.035 inch wire, serial dilatation was performed with ultimate placement of a peel-away sheath. A suitable exit site was identified on the patient's chest inferior and lateral to the venotomy. The site was anesthetized with local anesthetic and the track was anesthetized. Dermatotomy was made. PermCath was tunneled from the dermatotomy to the venotomy site/catheter. The PermCath was passed through the peel-away sheath under fluoroscopic guidance and positioned centrally. Peel- away sheath was removed. 4-0 Vicryl suture was used to close the venotomy and Dermabond was then applied. 2-0 Ethilon suture was used to secure the catheter at the dermatotomy. The catheter flushed and aspirated without issue. The catheter was charged with heparin 1000 units/mL space. Sterile dressing applied. The patient was transferred from the angiography suite back to the floor in stable condition. FINDINGS: 1. Excellent flow was obtained through the dialysis catheter with 20 mL syringes. 2. The catheter tip is in the right atrium. IMPRESSION: 1. Fluoroscopic-guided conversion of a right internal jugular non-tunneled non- cuffed hemodialysis catheter to a tunneled cuffed hemodialysis catheter.
--- NOTE | 2016-11-20 17:53 | Hem/Onc Consultation ---
History of Present Illness - Reason for Consult Consult date: 11/20/16 - History of Present Illness Patient is a 70-year-old female who has underlying dementia CVA diabetes chronic kidney disease who presented to the hospital with diarrhea and was found to have elevated cardiac enzymes consistent with non-ST elevation UT. She was at that time placed on heparin. She also was found to have renal insufficiency. Patient has had evidence of poor renal function for some time but was found to be in renal failure and dialysis has been initiated. During her hospital course patient was found to have drop in her hemoglobin and drop in her platelets. Patient did have occult blood in her stool and GI is working her up for that. Because of thrombocytopenia hematology consult was called. Patient also has evidence of poor cardiac function with the ejection fraction of 10-15% on echocardiogram with severe cardiomyopathy. Heparin-induced thrombocytopenia panel was also done which initially has been negative. Are a is pending at this time. He shouldn't also had evidence of macrocytosis. Agents platelets dropped down to exterior thousand but now have come up to 116, 000. Past History Past Medical History: hypertension, other (DM, CVA, CKD) Past Surgical History: hysterectomy Social history: denies: smoking, alcohol abuse, prescription drug abuse, IV drug use Family history: denies: no significant family history Medications and Allergies Allergies Allergy/AdvReac Type Severity Reaction Status Date / Time Beef AdvReac Unknown Uncoded 11/19/16 14:52 Home Medications Medication Instructions Recorded Confirmed Last Taken Type Alendronate Sodium 70 mg PO QWEEK 02/25/15 11/08/16 1 Day Ago History Aspirin BABY CHEW TAB 81 mg PO DAILY 02/25/15 11/08/16 1 Day Ago History Calcium + Vitamin D3 Gummies 600 mg PO DAILY 02/25/15 11/08/16 1 Day Ago History Carvedilol 25 mg PO BID 02/25/15 11/08/16 1 Day Ago History Hydralazine HCl 50 mg PO TID 02/25/15 11/08/16 1 Day Ago History Memantine (Nf) [Namenda (Nf)] 10 mg PO DAILY 02/25/15 11/08/16 1 Day Ago History Potassium Chloride [Klor-Con M20] 20 meq PO DAILY 02/25/15 11/08/16 1 Day Ago History Simvastatin 20 mg PO DAILY 02/25/15 11/08/16 1 Day Ago History Valsartan 320 mg PO DAILY 02/25/15 11/08/16 1 Day Ago History amLODIPine 10 mg PO DAILY 02/25/15 11/08/16 1 Day Ago History traMADol [Ultram] 50 mg PO Q4HR PRN #12 tablet 03/25/16 11/08/16 1 Day Ago Rx Loratadine 10 mg PO DAILY 11/08/16 11/08/16 1 Day Ago History Active Meds: Active Medications Acetaminophen (Tylenol) 650 mg PO Q4H PRN PRN Reason: Pain MILD(1-3)/Fever >100.5/PAREKH Last Admin: 11/13/16 21:42 Dose: 650 mg Albuterol (Proventil) 2.5 mg IH Q3HRT PRN PRN Reason: Shortness Of Breath Albuterol/Ipratropium (Duoneb *Not For Prn Use*) 1 ampul IH TIDRT [facility] Last Admin: 11/20/16 13:17 Dose: 1 ampul Amlodipine Besylate (Norvasc) 10 mg PO DAILY [facility] Last Admin: 11/19/16 15:54 Dose: 10 mg Aspirin (Baby Aspirin) 81 mg PO QDAY [facility] Last Admin: 11/19/16 15:55 Dose: 81 mg Atorvastatin Calcium (Lipitor) 40 mg PO QHS [facility] Last Admin: 11/19/16 21:50 Dose: 40 mg Calcium/Vitamin D ([place] D 500 Mg-200 Unit) 1 each PO QDAY [facility] Last Admin: 11/19/16 15:50 Dose: 1 each Carvedilol (Coreg) 50 mg PO BID [facility] Last Admin: 11/19/16 21:50 Dose: 50 mg Clopidogrel Bisulfate (Plavix) 75 mg PO QDAY [facility] Last Admin: 11/19/16 15:50 Dose: 75 mg Heparin Sodium (Porcine) (Heparin) 5,000 unit IV DAIANA PRN PRN Reason: hemodialysis Last Admin: 11/18/16 13:46 Dose: 5,000 unit Hydralazine HCl (Apresoline) 50 mg PO TID [facility] Last Admin: 11/19/16 20:50 Dose: Not Given Sodium Chloride (Nacl 0.9%) 1,000 mls @ 999 mls/hr IV DAIANA PRN PRN Reason: Hypotension Sodium Chloride (Nacl 0.9%) 100 mls @ 999 mls/hr IV DAIANA PRN PRN Reason: Hypotension Sodium Chloride (Nacl 0.9% 1000 Ml) 1,000 mls @ 50 mls/hr IV DIRECT [facility] Last Admin: 11/16/16 16:43 Dose: 50 mls/hr Sodium Chloride (Nacl 0.9%) 100 mls @ 999 mls/hr IV DAIANA PRN PRN Reason: Hypotension Isosorbide Mononitrate (Imdur) 30 mg PO QDAY [facility] Last Admin: 11/18/16 17:04 Dose: 30 mg Lisinopril (Zestril) 2.5 mg PO QDAY [facility] Last Admin: 11/19/16 15:54 Dose: 2.5 mg Memantine (Namenda Xr) 14 mg PO QDAY [facility] Last Admin: 11/19/16 15:55 Dose: 14 mg Methylprednisolone Sodium Succinate (Solu-Medrol) 40 mg IV Q12HR [facility] Last Admin: 11/19/16 21:54 Dose: 40 mg Ondansetron HCl (Zofran) 4 mg IV Q4H PRN PRN Reason: Nausea And Vomiting Oxycodone/Acetaminophen (Percocet 5/325) 1 tab PO Q6H PRN PRN Reason: Pain, Moderate (4-6) Last Admin: 11/14/16 21:31 Dose: 1 tab Pantoprazole Sodium (Protonix) 40 mg PO QDAY [facility] Last Admin: 11/19/16 15:51 Dose: 40 mg Senna/Docusate Sodium (Senokot S) 2 tab PO QHS [facility] Last Admin: 11/19/16 21:49 Dose: 2 tab Tramadol HCl (Ultram) 50 mg PO Q4H PRN PRN Reason: Pain Last Admin: 11/12/16 22:09 Dose: 50 mg Zolpidem Tartrate (Ambien) 5 mg PO QHS PRN PRN Reason: Insomnia Last Admin: 11/14/16 01:28 Dose: 5 mg Exam - Exam Narrative Exam: confused .undergoing hd - Constitutional Vitals: Last Vital Signs Temp 97.9 F 11/20/16 16:15 Pulse 81 11/20/16 17:30 Resp 20 11/20/16 16:15 BP 117/70 11/20/16 17:30 Pulse Ox 98 11/20/16 12:00 Performance status: 4-completely disabled - Respiratory Respiratory effort: Positive: normal Respiratory: bilateral: CTA - Cardiovascular Rhythm: regular Extremities: No edema - Gastrointestinal General gastrointestinal: Present: soft Results - Labs lab Results: Laboratory Results - last 24 hr 11/19/16 11/20/16 11/20/16 20:41 05:50 05:50 WBC 10.1 RBC 3.03 L Hgb 9.8 L Hct 29.9 L MCV 99 H MCH 32 MCHC 33 RDW 14.9 Plt Count 116 L Add Manual Diff Complete Total Counted 100 Seg Neutrophils % Transit Planning Director Seg Neuts % (Manual) 96.0 H Band Neutrophils % 2.0 Lymphocytes % (Manual) 2.0 L Reactive Lymphs % (Man) 0 Monocytes % (Manual) 0 Eosinophils % (Manual) 0 Basophils % (Manual) 0 Metamyelocytes % 0 Myelocytes % 0 Promyelocytes % 0 Blast Cells % 0 Nucleated RBC % Not Reportable Seg Neutrophils # Man 9.7 H Band Neutrophils # 0.2 Lymphocytes # (Manual) 0.2 L Abs React Lymphs (Man) 0.0 Monocytes # (Manual) 0.0 Eosinophils # (Manual) 0.0 Basophils # (Manual) 0.0 Metamyelocytes # 0.0 Myelocytes # 0.0 Promyelocytes # 0.0 Blast Cells # 0.0 WBC Morphology Not Reportable Hypersegmented Neuts 1+ Hyposegmented Neuts Not Reportable Hypogranular Neuts Not Reportable Smudge Cells Not Reportable Toxic Granulation Not Reportable Toxic Vacuolation Not Reportable Dohle Bodies Not Reportable Pelger-Huet Anomaly Not Reportable Tamanna Rods Not Reportable Platelet Estimate Consistent w auto Clumped Platelets Not Reportable Plt Clumps, EDTA Not Reportable Large Platelets Not Reportable Giant Platelets Not Reportable Platelet Satelliting Not Reportable Plt Morphology Comment Not Reportable RBC Morphology Not Reportable Dimorphic RBCs Not Reportable Polychromasia Not Reportable Hypochromasia 1+ Poikilocytosis Not Reportable Anisocytosis 1+ Microcytosis Not Reportable Macrocytosis Not Reportable Spherocytes Not Reportable Pappenheimer Bodies Not Reportable Sickle Cells Not Reportable Target Cells Not Reportable Tear Drop Cells Not Reportable Ovalocytes Not Reportable Helmet Cells Not Reportable Ramos-Colwell Bodies Not Reportable [place] Rings Not Reportable Renny Cells Not Reportable Bite Cells Not Reportable Crenated Cell Not Reportable Elliptocytes Not Reportable Acanthocytes (Spur) Not Reportable Rouleaux Not Reportable Hemoglobin C Crystals Not Reportable Schistocytes Not Reportable Malaria parasites Not Reportable Javi Bodies Not Reportable Hem Pathologist Commnt No Sodium 132 L Potassium 4.9 Chloride 95.5 L Carbon Dioxide 23 Anion Gap 18 BUN 85 H Creatinine 3.1 H Estimated GFR 18 BUN/Creatinine Ratio 27.41 Glucose 199 H POC Glucose 309 H Calcium 7.9 L 11/20/16 11/20/16 07:41 12:04 WBC RBC Hgb Hct MCV MCH MCHC RDW Plt Count Add Manual Diff Total Counted Seg Neutrophils % Seg Neuts % (Manual) Band Neutrophils % Lymphocytes % (Manual) Reactive Lymphs % (Man) Monocytes % (Manual) Eosinophils % (Manual) Basophils % (Manual) Metamyelocytes % Myelocytes % Promyelocytes % Blast Cells % Nucleated RBC % Seg Neutrophils # Man Band Neutrophils # Lymphocytes # (Manual) Abs React Lymphs (Man) Monocytes # (Manual) Eosinophils # (Manual) Basophils # (Manual) Metamyelocytes # Myelocytes # Promyelocytes # Blast Cells # WBC Morphology Hypersegmented Neuts Hyposegmented Neuts Hypogranular Neuts Smudge Cells Toxic Granulation Toxic Vacuolation Dohle Bodies Pelger-Huet Anomaly Tamanna Rods Platelet Estimate Clumped Platelets Plt Clumps, EDTA Large Platelets Giant Platelets Platelet Satelliting Plt Morphology Comment RBC Morphology Dimorphic RBCs Polychromasia Hypochromasia Poikilocytosis Anisocytosis Microcytosis Macrocytosis Spherocytes Pappenheimer Bodies Sickle Cells Target Cells Tear Drop Cells Ovalocytes Helmet Cells Ramos-Colwell Bodies [place] Rings [place] Cells Bite Cells Crenated Cell Elliptocytes Acanthocytes (Spur) Rouleaux Hemoglobin C Crystals Schistocytes Malaria parasites Javi Bodies Hem Pathologist Commnt Sodium Potassium Chloride Carbon Dioxide Anion Gap BUN Creatinine Estimated GFR BUN/Creatinine Ratio Glucose POC Glucose 182 H 179 H Calcium Assessment and Plan Thrombocytopenia has improved. This could be the factorial. Will rule out B12 folate deficiency specially since she has microcytosis. We will also get her liver enzymes checked. Her hepatitis profile was negative. Platelets are improving and we'll monitor it. I do not see any evidence of TTP. We will hopefully monitor. Awaiting Abigail If platelets drop below 20, transfuse. Watch for bleeding.
[2016-11-20] MEDS ORDERED: NACL 0.9 (PRIMING MACHINE ONLY DIALYSIS) MC ONE (19:05)
[2016-11-20] MEDS: IMDUR PO SCH (20:10)
[2016-11-20] MEDS: APRESOLINE PO SCH ×3 (20:11→23:24)
[2016-11-20] MEDS: BABY ASPIRIN PO SCH (20:12)
[2016-11-20] MEDS: COREG PO SCH ×2 (20:12→22:12)
[2016-11-20] MEDS: NAMENDA XR PO SCH (20:13)
[2016-11-20] MEDS: NORVASC PO SCH (20:15)
[2016-11-20] MEDS: PLAVIX PO SCH (20:16)
[2016-11-20] MEDS: PROTONIX PO SCH (20:16)
[2016-11-20] MEDS: OYSCO D 500 MG-200 UNIT PO SCH (20:16)
[2016-11-20] MEDS: ZESTRIL PO SCH (20:17)
[2016-11-20] MEDS ORDERED: DUONEB *Not for PRN Use IH ONE (21:33)
[2016-11-20 21:54] LABS: Albumin 2.4 g/dL (3.9-5); Albumin/Globulin Ratio 0.8 %; BUN/Creatinine Ratio 26.5; Bilirubin,Total 0.6 mg/dL (0.1-1.2); Calcium 8.2 mg/dL (8.4-10.2); Chloride 93.3 mmol/L (98-107); Total Protein 5.3 g/dL (6.3-8.2)
[2016-11-20 22:24] LABS: Potassium 4.7 mmol/L (3.6-5.0)
[2016-11-20] MEDS: SENOKOT S PO SCH (23:25)
[2016-11-21 06:02] LABS: Hematocrit 28.7 % (30.3-42.9); Hemoglobin 9.5 gm/dl (10.1-14.3); Mean Corpuscular HGB Conc 33 % (30-34); Mean Corpuscular Hemoglobin 32 pg (28-32); Mean Corpuscular Volume 98 fl (79-97); Platelet Count 113 K/mm3 (140-440); Red Blood Count 2.94 M/mm3 (3.65-5.03); Red Cell Distribution Width 15.3 % (13.2-15.2)
[2016-11-21 06:16] LABS: BUN/Creatinine Ratio 29.13; Calcium 8.3 mg/dL (8.4-10.2); Chloride 95.6 mmol/L (98-107); Potassium 4.6 mmol/L (3.6-5.0)
[2016-11-21 06:54] LABS: Anisocytosis 1+; Basophils % (Manual) 0 % (0.0-1.8); Blastocytes % (Manual) 0 %; Diff Status Complete; Eosinophils % (Manual) 0 % (0.0-4.3); Hypochromasia 1+; Platelet Estimate Consistent w Auto
[2016-11-21] MEDS: DUONEB *Not for PRN Use IH SCH ×3 (07:48→19:53)
[2016-11-21] MEDS: APRESOLINE PO SCH ×3 (09:03→21:16)
[2016-11-21] MEDS: NAMENDA XR PO SCH (11:17)
[2016-11-21] MEDS: OYSCO D 500 MG-200 UNIT PO SCH (11:18)
[2016-11-21] MEDS: PLAVIX PO SCH (11:24)
[2016-11-21] MEDS: PROTONIX PO SCH (11:24)
[2016-11-21] MEDS: BABY ASPIRIN PO SCH (11:24)
[2016-11-21] MEDS: NORVASC PO SCH (11:25)
[2016-11-21] MEDS: IMDUR PO SCH (11:25)
[2016-11-21] MEDS: ZESTRIL PO SCH (11:26)
[2016-11-21] MEDS: COREG PO SCH ×2 (11:31→21:17)
--- NOTE | 2016-11-21 11:32 | Progress Note ---
Assessment and Plan - Patient Problems (1) NSTEMI (non-ST elevated myocardial infarction) Current Visit: Yes Status: Acute Plan to address problem: We will plan coronary intervention on Wednesday, if platelet counts remained stable. (2) Thrombocytopenia Current Visit: Yes Status: Acute Subjective Date of service: 11/21/16 Principal diagnosis: Acute Hypoxemic Respiratory Failure Interval history: Patient is comfortable, no acute distress. We appreciate hematology oncology evaluation of the thrombocytopenia. Objective Vital Signs Temp Pulse Pulse Resp Resp BP Pulse Ox 11/21/16 07:47 96 11/21/16 04:57 97.5 F L 73 20 121/56 96 11/21/16 04:00 70 11/21/16 00:20 97.5 F L 77 20 155/72 99 11/20/16 22:12 80 163/75 11/20/16 22:11 80 163/75 11/20/16 21:51 73 13 11/20/16 21:42 96 11/20/16 21:37 69 12 11/20/16 21:00 97.7 F 20 L 18 163/75 99 11/20/16 20:50 20 11/20/16 19:20 97.8 F 75 20 135/66 11/20/16 19:15 82 123/79 11/20/16 19:00 86 124/72 11/20/16 18:45 84 120/70 11/20/16 18:30 86 119/72 11/20/16 18:15 93 H 137/71 11/20/16 18:00 102 H 120/76 11/20/16 17:45 82 128/75 11/20/16 17:30 81 117/70 11/20/16 17:15 87 99/60 11/20/16 17:00 81 131/65 11/20/16 16:45 84 109/57 11/20/16 16:30 75 139/74 11/20/16 16:15 97.9 F 70 20 157/75 11/20/16 13:27 71 18 11/20/16 13:17 72 18 11/20/16 12:00 97.6 F 72 18 147/70 98 11/20/16 11:55 98 - Physical Examination General: No Apparent Distress HEENT: Positive: PERRL Neck: Positive: trachea midline Cardiac: Positive: Reg Rate and Rhythm Lungs: Positive: clear to auscultation Neuro: Positive: Grossly Intact Abdomen: Positive: Soft, Active Bowel Sounds Skin: Positive: Clear Extremities: Absent: edema - Labs and Meds Cardiac Enzymes 11/20/16 Range/Units 21:16 AST 42 H (5-40) units/L CBC 11/21/16 Range/Units 05:25 WBC 10.0 (4.5-11.0) K/mm3 RBC 2.94 L (3.65-5.03) M/mm3 Hgb 9.5 L (10.1-14.3) gm/dl Hct 28.7 L (30.3-42.9) % Plt Count 113 L (140-440) K/mm3 Comprehensive Metabolic Panel 11/20/16 11/21/16 Range/Units 21:16 05:25 Sodium 131 L 133 L (137-145) mmol/L Potassium 4.7 4.6 (3.6-5.0) mmol/L Chloride 93.3 L 95.6 L (98-107) mmol/L Carbon Dioxide 25 25 (22-30) mmol/L BUN 53 H 67 H (7-17) mg/dL Creatinine 2.0 H 2.3 H (0.7-1.2) mg/dL Glucose 163 H 187 H (65-100) mg/dL Calcium 8.2 L 8.3 L (8.4-10.2) mg/dL AST 42 H (5-40) units/L ALT 30 (7-56) units/L Alkaline Phosphatase 95 (35-129) units/L Total Protein 5.3 L (6.3-8.2) g/dL Albumin 2.4 L (3.9-5) g/dL - Imaging and Cardiology EKG: report reviewed (Sinus Tach pvc's LVH 119/min Repolarization abnormalities) - Allied health notes Allied health notes reviewed: RT
--- NOTE | 2016-11-21 11:52 | Progress Note ---
Assessment and Plan Assessment and plan: NSTEMI. [facility] this admission reports a 80% proximal OM2, 60-70% mid LAD, severe diffuse disease of a small distal RCA with left to right collaterals. Cardiology to potentially schedule coronary intervention Wednesday if platelet counts remain stable.. NATHALIA vs CKD. Patient initiated on dialysis this admission. Currently with Wednesday, Wednesday and Wednesday schedule. Renal ultrasound showing no hydronephrosis. Valsartan and Lasix have been discontinued. Acute decompensated systolic heart failure. Continue hemodialysis as above for volume control. Cardiology following. Transthoracic echocardiogram report by Dr. Shane read as left ventricular chamber size severely dilated, global left systolic function is severely decreased, estimated ejection fraction is 10-15%, mild concentric left ventricular hypertrophy, left atrium is severely dilated, moderate to severe MR, mild to moderate TR, evidence of mild pulmonary hypertension, trivial pericardial effusion, catheters visualizing right atrium. Anemia. EGD/Flex this admission reports mild non-erosive gastritis and hemorrhoids. GI following. GI reports no contraindication to proceeding to cardiac cath/DAPT at present. Thrombocytopenia. Hematology consultation. Check HIT panel. Follow-up CBC in a.m. Severe Cardiomyopathy. LVEF 10-15% on echocardiogram. Moderate to severe mitral regurgitation hx CVA Hypertension. Continue antihypertensive medications. History Interval history: No new issues overnight. Hospitalist Physical - Constitutional Vitals: Temp Pulse Resp BP Pulse Ox 97.3 F L 84 20 106/65 100 11/21/16 11:47 11/21/16 11:47 11/21/16 11:47 11/21/16 11:47 11/21/16 11:47 General appearance: Present: no acute distress, well-nourished - EENT Eyes: Present: PERRL, EOM intact ENT: hearing intact, clear oral mucosa, dentition normal - Neck Neck: Present: supple, normal ROM - Respiratory Respiratory effort: normal Respiratory: bilateral: CTA - Cardiovascular Rhythm: regular Heart Sounds: Present: S1 & S2. Absent: gallop, rub - Extremities Extremities: no ischemia, No edema, Full ROM - Abdominal General gastrointestinal: soft, non-tender, non-distended, normal bowel sounds - Integumentary Integumentary: Present: clear, warm, dry - Neurologic Neurologic: CNII-XII intact, moves all extremities Results - Labs CBC & Chem 7: 11/21/16 05:25 07/29/17 05:25 Labs: Laboratory Last Values WBC 10.0 K/mm3 (4.5-11.0) 11/21/16 05:25 RBC 2.94 M/mm3 (3.65-5.03) L 11/21/16 05:25 Hgb 9.5 gm/dl (10.1-14.3) L 11/21/16 05:25 Hct 28.7 % (30.3-42.9) L 11/21/16 05:25 MCV 98 fl (79-97) H 11/21/16 05:25 MCH 32 pg (28-32) 11/21/16 05:25 MCHC 33 % (30-34) 11/21/16 05:25 RDW 15.3 % (13.2-15.2) H 11/21/16 05:25 Plt Count 113 K/mm3 (140-440) L 11/21/16 05:25 Lymph % (Auto) Diesel Fitter Mechanic 11/18/16 05:00 Anderson % (Auto) Diesel Fitter Mechanic 11/18/16 05:00 Eos % (Auto) Diesel Fitter Mechanic 11/18/16 05:00 Baso % (Auto) Diesel Fitter Mechanic 11/18/16 05:00 Lymph # Diesel Fitter Mechanic 11/18/16 05:00 Anderson # Diesel Fitter Mechanic 11/18/16 05:00 Eos # Diesel Fitter Mechanic 11/18/16 05:00 Baso # Diesel Fitter Mechanic 11/18/16 05:00 Add Manual Diff Complete 11/21/16 05:25 Total Counted 100 11/21/16 05:25 Seg Neutrophils % Diesel Fitter Mechanic 11/21/16 05:25 Seg Neuts % (Manual) 91.0 % (40.0-70.0) H 11/21/16 05:25 Band Neutrophils % 0 % 11/21/16 05:25 Lymphocytes % (Manual) 6.0 % (13.4-35.0) L 11/21/16 05:25 Reactive Lymphs % (Man) 0 % 11/21/16 05:25 Monocytes % (Manual) 3.0 % (0.0-7.3) 11/21/16 05:25 Eosinophils % (Manual) 0 % (0.0-4.3) 11/21/16 05:25 Basophils % (Manual) 0 % (0.0-1.8) 11/21/16 05:25 Metamyelocytes % 0 % 11/21/16 05:25 Myelocytes % 0 % 11/21/16 05:25 Promyelocytes % 0 % 11/21/16 05:25 Blast Cells % 0 % 11/21/16 05:25 Nucleated RBC % Not Reportable 11/21/16 05:25 Seg Neutrophils # Diesel Fitter Mechanic 11/18/16 05:00 Seg Neutrophils # Man 9.1 K/mm3 (1.8-7.7) H 11/21/16 05:25 Band Neutrophils # 0.0 K/mm3 11/21/16 05:25 Lymphocytes # (Manual) 0.6 K/mm3 (1.2-5.4) L 11/21/16 05:25 Abs React Lymphs (Man) 0.0 K/mm3 11/21/16 05:25 Monocytes # (Manual) 0.3 K/mm3 (0.0-0.8) 11/21/16 05:25 Eosinophils # (Manual) 0.0 K/mm3 (0.0-0.4) 11/21/16 05:25 Basophils # (Manual) 0.0 K/mm3 (0.0-0.1) 11/21/16 05:25 Metamyelocytes # 0.0 K/mm3 11/21/16 05:25 Myelocytes # 0.0 K/mm3 11/21/16 05:25 Promyelocytes # 0.0 K/mm3 11/21/16 05:25 Blast Cells # 0.0 K/mm3 11/21/16 05:25 WBC Morphology Not Reportable 11/21/16 05:25 Hypersegmented Neuts Not Reportable 11/21/16 05:25 Hyposegmented Neuts Not Reportable 11/21/16 05:25 Hypogranular Neuts Not Reportable 11/21/16 05:25 Smudge Cells Not Reportable 11/21/16 05:25 Toxic Granulation Not Reportable 11/21/16 05:25 Toxic Vacuolation Not Reportable 11/21/16 05:25 Dohle Bodies Not Reportable 11/21/16 05:25 Pelger-Huet Anomaly Not Reportable 11/21/16 05:25 Tamanna Rods Not Reportable 11/21/16 05:25 Platelet Estimate Consistent w auto 11/21/16 05:25 Clumped Platelets Not Reportable 11/21/16 05:25 Plt Clumps, EDTA Not Reportable 11/21/16 05:25 Large Platelets Not Reportable 11/21/16 05:25 Giant Platelets Not Reportable 11/21/16 05:25 Platelet Satelliting Not Reportable 11/21/16 05:25 Plt Morphology Comment Not Reportable 11/21/16 05:25 RBC Morphology Not Reportable 11/21/16 05:25 Dimorphic RBCs Not Reportable 11/21/16 05:25 Polychromasia Not Reportable 11/21/16 05:25 Hypochromasia 1+ 11/21/16 05:25 Poikilocytosis Not Reportable 11/21/16 05:25 Anisocytosis 1+ 11/21/16 05:25 Microcytosis Not Reportable 11/21/16 05:25 Macrocytosis Not Reportable 11/21/16 05:25 Spherocytes Not Reportable 11/21/16 05:25 Pappenheimer Bodies Not Reportable 11/21/16 05:25 Sickle Cells Not Reportable 11/21/16 05:25 Target Cells Not Reportable 11/21/16 05:25 Tear Drop Cells Not Reportable 11/21/16 05:25 Ovalocytes Not Reportable 11/21/16 05:25 Helmet Cells Not Reportable 11/21/16 05:25 Ramos-[place] Bodies Not Reportable 11/21/16 05:25 [place] Rings Not Reportable 11/21/16 05:25 Renny Cells Not Reportable 11/21/16 05:25 Bite Cells Not Reportable 11/21/16 05:25 Crenated Cell Not Reportable 11/21/16 05:25 Elliptocytes Not Reportable 11/21/16 05:25 Acanthocytes (Spur) Not Reportable 11/21/16 05:25 Rouleaux Not Reportable 11/21/16 05:25 Hemoglobin C Crystals Not Reportable 11/21/16 05:25 Schistocytes Not Reportable 11/21/16 05:25 Malaria parasites Not Reportable 11/21/16 05:25 Percent Retic 4.37 % (0.78-2.58) H 11/10/16 19:09 Javi Bodies Not Reportable 11/21/16 05:25 Hem Pathologist Commnt No 11/21/16 05:25 PT 14.4 Sec. (12.2-14.9) 11/19/16 09:15 INR 1.06 (0.87-1.13) 11/19/16 09:15 APTT 38.5 Sec. (24.2-36.6) H 11/08/16 12:04 D-Dimer 1575.53 ng/mlDDU (0-234) H 11/07/16 16:35 Heparin Anti-Xa Level 0.12 U.I./ml (0.3-0.7) L 11/10/16 07:16 Heparin Anti-Xa, Unfract Negative (Negative) 11/17/16 09:17 POC ABG pH 7.413 (7.35-7.45) 11/18/16 10:48 POC ABG pCO2 34.6 (35-45) L 11/18/16 10:48 POC ABG pO2 79 (80-105) L 11/18/16 10:48 POC ABG HCO3 22.1 11/18/16 10:48 POC ABG Total CO2 23 11/18/16 10:48 POC ABG O2 Sat 96 11/18/16 10:48 POC ABG Base Excess -3 11/18/16 10:48 FiO2 21 % 11/18/16 10:48 Sodium 133 mmol/L (137-145) L 11/21/16 05:25 Potassium 4.6 mmol/L (3.6-5.0) 11/21/16 05:25 Chloride 95.6 mmol/L (98-107) L 11/21/16 05:25 Carbon Dioxide 25 mmol/L (22-30) 11/21/16 05:25 Anion Gap 17 mmol/L 11/21/16 05:25 BUN 67 mg/dL (7-17) H 11/21/16 05:25 Creatinine 2.3 mg/dL (0.7-1.2) H 11/21/16 05:25 Estimated GFR 25 ml/min 11/21/16 05:25 BUN/Creatinine Ratio 29.13 % 11/21/16 05:25 Glucose 187 mg/dL (65-100) H 11/21/16 05:25 POC Glucose 179 (70-105) H 11/20/16 12:04 Hemoglobin A1c 4.8 % (4-6) 11/07/16 16:35 Lactic Acid 1.10 mmol/L (0.7-2.0) 11/09/16 03:19 Calcium 8.3 mg/dL (8.4-10.2) L 11/21/16 05:25 Iron 70 ug/dL (37-170) 11/10/16 18:10 TIBC 237 mcg/dL (250-450) L 11/10/16 18:10 Ferritin 211.2 ng/mL (13.0-400.0) 11/10/16 18:10 Total Bilirubin 0.60 mg/dL (0.1-1.2) 11/20/16 21:16 AST 42 units/L (5-40) H 11/20/16 21:16 ALT 30 units/L (7-56) 11/20/16 21:16 Alkaline Phosphatase 95 units/L (35-129) 11/20/16 21:16 Total Creatine Kinase 947 units/L (30-135) H 11/08/16 17:09 CK-MB (CK-2) 91.7 ng/mL (0.0-4.0) H 11/08/16 17:09 CK-MB (CK-2) Rel Index 9.6 (0-4) H 11/08/16 17:09 Troponin T 6.920 ng/mL (0.00-0.029) H* 11/07/16 18:36 C-Reactive Protein 5.80 mg/dL (0.00-1.30) H 11/08/16 17:09 NT-Pro-B Natriuret Pep 33867 pg/mL (0-900) H 11/07/16 16:35 Total Protein 5.3 g/dL (6.3-8.2) L 11/20/16 21:16 Albumin 2.4 g/dL (3.9-5) L 11/20/16 21:16 Albumin/Globulin Ratio 0.8 % 11/20/16 21:16 Triglycerides 69 mg/dL (2-149) 11/07/16 16:35 Cholesterol 129 mg/dL (50-199) 11/07/16 16:35 LDL Cholesterol Direct 56 mg/dL (50-130) 11/07/16 16:35 HDL Cholesterol 60 mg/dL (40-59) H 11/07/16 16:35 Cholesterol/HDL Ratio 2.15 % 11/07/16 16:35 Vitamin B12 1454 pg/mL (211-911) H 11/20/16 21:23 Folate 13.54 ng/mL (7.3-26.0) 11/20/16 21:24 TSH 4.120 mlU/mL (0.270-4.200) 11/09/16 15:38 Urine Color Yellow (Yellow) 11/08/16 13:56 Urine Turbidity Cloudy (Clear) 11/08/16 13:56 Urine pH 5.0 (5.0-7.0) 11/08/16 13:56 Ur Specific [place] 1.013 (1.003-1.030) 11/08/16 13:56 Urine Protein 100 mg/dl mg/dL (Negative) 11/08/16 13:56 Urine Glucose (UA) Neg mg/dL (Negative) 11/08/16 13:56 Urine Ketones Neg mg/dL (Negative) 11/08/16 13:56 Urine Blood Lg (Negative) 11/08/16 13:56 Urine Nitrite Neg (Negative) 11/08/16 13:56 Urine Bilirubin Neg (Negative) 11/08/16 13:56 Urine Urobilinogen < 2.0 mg/dL (<2.0) 11/08/16 13:56 Ur Leukocyte Esterase Mod (Negative) 11/08/16 13:56 Urine WBC (Auto) 25.0 /HPF (0.0-6.0) H 11/08/16 13:56 Urine RBC (Auto) > 182.0 /HPF (0.0-6.0) 11/08/16 13:56 U Epithel Cells (Auto) 20.0 /HPF (0-13.0) H 11/08/16 13:56 Urine WBC Clumps Few /HPF 11/08/16 13:56 Ur Transition Epith Cell 2 /HPF 11/08/16 13:56 Urine Creatinine 161.2 mg/dL (0.1-20.0) H 11/08/16 13:56 Protein/Creatinin Ratio 0.91 11/08/16 13:56 Urine Total Protein 146 mg/dL (5-11.8) H 11/08/16 13:56 Heparin-induced Plt Ab Negative (Negative) 11/17/16 09:17 UF Heparin High Dose 0 % Release 11/17/16 09:17 EREN UFH Low Dose 0.1 0 % Release 11/17/16 09:17 EREN UFH Low Dose 0.5 0 % Release 11/17/16 09:17 Hep Bs Antigen Non-reactive (Negative) 11/10/16 04:32 Hepatitis C Antibody Non-reactive (NonReactive) 11/10/16 04:32
--- NOTE | 2016-11-21 16:02 | Progress Note ---
Assessment and Plan (1) NATHALIA vs CKD, Baseline unavailable, CRS, now requiring dialysis Current Visit: Yes Status: Acute Plan to address problem: HD on MWF schedule Renal U/S reviewed. No hydronephrosis Avoid nephrotoxics Valsartan/lisinopril and Lasix have been d/asher -hold off all ACEI/ARB till CR at a steady state Monitor for renal recovery Rise in CR between dialysis treatments low-? starting to recover (2) Acute systolic congestive herat failure Current Visit: Yes Status: Acute Plan to address problem: UF on dialysis Strict I/Os 2D echo report reviewed. It showed EF of 10-15 % (3) NSTEMI (non-ST elevated myocardial infarction) Current Visit: Yes Status: Acute Plan to address problem: Management per Cardio [facility] this admission reports a 80% proximal OM2, 60-70% mid LAD, severe diffuse disease of a small distal RCA with left to right collaterals. She is scheduled for cardiac intervention on Wednesday. (4) Acute hypoxic respiratory failure (Pneumonia /pulmonary edema) Current Visit: Yes Status: Acute improved with dialysis fluid removal (5) Essential HTN (hypertension) Current Visit: Yes Status: Chronic Qualifiers: Hypertension type: essential hypertension Qualified Code(s): I10 - Essential (primary) hypertension Plan to address problem: Stable. (6) GI bleeding Current Visit: Yes Status: Acute EGD today (7) Dementia Current Visit: Yes Status: Chronic Qualifiers: Dementia type: vascular dementia Alzheimer's disease onset: A Dementia behavioral disturbance: D Plan to address problem: Cont Nam[place] Subjective Date of service: 11/21/16 Principal diagnosis: Acute Hypoxemic Respiratory Failure Interval history: No new changes. Hematology consult notes reviewed. Objective - Exam Narrative Exam: General appearance: well-developed, well-nourished, appears stated age, no distress EENT: PERRL, mucous membranes moist Neck: Present: neck supple, trachea midline. Absent: JVD/HJR, Masses Respiratory: Decreased Breath Sounds, scattered wheezes Heart: regular, normal heart rate, S1S2, no murmurs Gastrointestinal: Present: normoactive bowel sounds. Absent: tenderness Integumentary: no rash, warm and dry Neurologic: no focal deficit, alert and oriented x3, gait normal, strength 5/5 Musculoskeletal: Absent: deformities, joint swelling Psychiatric: mood/affect appropriate, cooperative - Vital Signs Vital signs: Vital Signs - 12hr 11/21/16 11/21/16 11/21/16 04:57 07:47 10:00 Temperature 97.5 F L Pulse Rate 73 70 Pulse Rate [ Anterior Bilateral Throughout] Respiratory 20 Rate Respiratory Rate [Anterior Bilateral Throughout] Blood Pressure 121/56 O2 Sat by Pulse 96 96 Oximetry 11/21/16 11/21/16 11/21/16 11:25 11:26 11:31 Temperature Pulse Rate 63 63 63 Pulse Rate [ Anterior Bilateral Throughout] Respiratory Rate Respiratory Rate [Anterior Bilateral Throughout] Blood Pressure 135/69 135/69 135/69 O2 Sat by Pulse Oximetry 11/21/16 11/21/16 11/21/16 11:47 13:22 13:28 Temperature 97.3 F L Pulse Rate 84 Pulse Rate [ 70 75 Anterior Bilateral Throughout] Respiratory 20 Rate Respiratory 18 18 Rate [Anterior Bilateral Throughout] Blood Pressure 106/65 O2 Sat by Pulse 100 Oximetry - Lab 11/21/16 05:25 11/21/16 05:25 Most recent lab results Calcium 8.3 mg/dL (8.4-10.2) L 11/21/16 05:25 Urine Creatinine 161.2 mg/dL (0.1-20.0) H 11/08/16 13:56 Urine Total Protein 146 mg/dL (5-11.8) H 11/08/16 13:56
--- NOTE | 2016-11-21 16:41 | Hem/Onc Progress Note ---
Assessment and Plan thrombocytopenia - may be reactive to acute events - EREN pending - monitor oozing around central line, recheck coag studies Subjective Date of service: 11/21/16 Interval history: w/some oozing and bruising around central line Objective - Constitutional Vitals: Last Vital Signs Temp 98.5 F 11/21/16 16:36 Pulse 74 11/21/16 16:36 Resp 20 11/21/16 16:36 BP 144/70 11/21/16 16:36 Pulse Ox 97 11/21/16 16:36 - Neck Neck: supple, other (oozing/bruising around central line) - Respiratory Respiratory effort: Positive: normal - Cardiovascular Rhythm: regular Extremities: No edema - Gastrointestinal General gastrointestinal: Present: soft - Labs Lab Results: Laboratory Results - last 24 hr 11/20/16 11/20/16 11/20/16 21:16 21:23 21:24 WBC RBC Hgb Hct MCV MCH MCHC RDW Plt Count Add Manual Diff Total Counted Seg Neutrophils % Seg Neuts % (Manual) Band Neutrophils % Lymphocytes % (Manual) Reactive Lymphs % (Man) Monocytes % (Manual) Eosinophils % (Manual) Basophils % (Manual) Metamyelocytes % Myelocytes % Promyelocytes % Blast Cells % Nucleated RBC % Seg Neutrophils # Man Band Neutrophils # Lymphocytes # (Manual) Abs React Lymphs (Man) Monocytes # (Manual) Eosinophils # (Manual) Basophils # (Manual) Metamyelocytes # Myelocytes # Promyelocytes # Blast Cells # WBC Morphology Hypersegmented Neuts Hyposegmented Neuts Hypogranular Neuts Smudge Cells Toxic Granulation Toxic Vacuolation Dohle Bodies Pelger-Huet Anomaly Tamanna Rods Platelet Estimate Clumped Platelets Plt Clumps, EDTA Large Platelets Giant Platelets Platelet Satelliting Plt Morphology Comment RBC Morphology Dimorphic RBCs Polychromasia Hypochromasia Poikilocytosis Anisocytosis Microcytosis Macrocytosis Spherocytes Pappenheimer Bodies Sickle Cells Target Cells Tear Drop Cells Ovalocytes Helmet Cells Ramos-[place] Bodies [place] Rings [place] Cells Bite Cells Crenated Cell Elliptocytes Acanthocytes (Spur) Rouleaux Hemoglobin C Crystals Schistocytes Malaria parasites Javi Bodies Hem Pathologist Commnt Sodium 131 L Potassium 4.7 Chloride 93.3 L Carbon Dioxide 25 Anion Gap 17 BUN 53 H Creatinine 2.0 H Estimated GFR 30 BUN/Creatinine Ratio 26.50 Glucose 163 H Calcium 8.2 L Total Bilirubin 0.60 AST 42 H ALT 30 Alkaline Phosphatase 95 Total Protein 5.3 L Albumin 2.4 L Albumin/Globulin Ratio 0.8 Vitamin B12 1454 H Folate 13.54 11/21/16 11/21/16 05:25 05:25 WBC 10.0 RBC 2.94 L Hgb 9.5 L Hct 28.7 L MCV 98 H MCH 32 MCHC 33 RDW 15.3 H Plt Count 113 L Add Manual Diff Complete Total Counted 100 Seg Neutrophils % Inclusion Special Education Teacher Seg Neuts % (Manual) 91.0 H Band Neutrophils % 0 Lymphocytes % (Manual) 6.0 L Reactive Lymphs % (Man) 0 Monocytes % (Manual) 3.0 Eosinophils % (Manual) 0 Basophils % (Manual) 0 Metamyelocytes % 0 Myelocytes % 0 Promyelocytes % 0 Blast Cells % 0 Nucleated RBC % Not Reportable Seg Neutrophils # Man 9.1 H Band Neutrophils # 0.0 Lymphocytes # (Manual) 0.6 L Abs React Lymphs (Man) 0.0 Monocytes # (Manual) 0.3 Eosinophils # (Manual) 0.0 Basophils # (Manual) 0.0 Metamyelocytes # 0.0 Myelocytes # 0.0 Promyelocytes # 0.0 Blast Cells # 0.0 WBC Morphology Not Reportable Hypersegmented Neuts Not Reportable Hyposegmented Neuts Not Reportable Hypogranular Neuts Not Reportable Smudge Cells Not Reportable Toxic Granulation Not Reportable Toxic Vacuolation Not Reportable Dohle Bodies Not Reportable Pelger-Huet Anomaly Not Reportable Tamanna Rods Not Reportable Platelet Estimate Consistent w auto Clumped Platelets Not Reportable Plt Clumps, EDTA Not Reportable Large Platelets Not Reportable Giant Platelets Not Reportable Platelet Satelliting Not Reportable Plt Morphology Comment Not Reportable RBC Morphology Not Reportable Dimorphic RBCs Not Reportable Polychromasia Not Reportable Hypochromasia 1+ Poikilocytosis Not Reportable Anisocytosis 1+ Microcytosis Not Reportable Macrocytosis Not Reportable Spherocytes Not Reportable Pappenheimer Bodies Not Reportable Sickle Cells Not Reportable Target Cells Not Reportable Tear Drop Cells Not Reportable Ovalocytes Not Reportable Helmet Cells Not Reportable Ramos-[place] Bodies Not Reportable [place] Rings Not Reportable [place] Cells Not Reportable Bite Cells Not Reportable Crenated Cell Not Reportable Elliptocytes Not Reportable Acanthocytes (Spur) Not Reportable Rouleaux Not Reportable Hemoglobin C Crystals Not Reportable Schistocytes Not Reportable Malaria parasites Not Reportable Javi Bodies Not Reportable Hem Pathologist Commnt No Sodium 133 L Potassium 4.6 Chloride 95.6 L Carbon Dioxide 25 Anion Gap 17 BUN 67 H Creatinine 2.3 H Estimated GFR 25 BUN/Creatinine Ratio 29.13 Glucose 187 H Calcium 8.3 L Total Bilirubin AST ALT Alkaline Phosphatase Total Protein Albumin Albumin/Globulin Ratio Vitamin B12 Folate
[2016-11-21 18:56] LABS: INR 1.09 (0.87-1.13)
[2016-11-21 18:57] LABS: Partial Thromboplastin Time 27.3 Sec. (24.2-36.6)
--- NOTE | 2016-11-21 20:24 | Progress Note ---
Assessment and Plan Patient sleeping at this time. On 2 litres O2.O2 saturation 98%.No acute respiratory distress. - Patient Problems (1) Acute respiratory failure with hypoxia Current Visit: Yes Status: Acute Plan to address problem: Patient is on 2 litres O2. Albuterol/atrovent aerosol treatments q 6 hours. Continue I/V solumedral. Continue S/C Heparin. Continue Protonix. (2) NSTEMI (non-ST elevated myocardial infarction) Current Visit: Yes Status: Acute Plan to address problem: Management as per cardiology (3) Thrombocytopenia Current Visit: Yes Status: Acute Plan to address problem: Platelet count dropping ltest platelet count 113,000. (4) CKD (chronic kidney disease) stage 4, GFR 15-29 ml/min Current Visit: Yes Status: Chronic Plan to address problem: Management as per nephrology. Subjective Date of service: 11/21/16 Principal diagnosis: Acute Hypoxemic Respiratory Failure Interval history: Patient sleeping at this time. On 2 litres O2.O2 saturation 98%.No acute respiratory distress. Objective Vital Signs - 12hr 11/21/16 11/21/16 11/21/16 10:00 11:25 11:26 Temperature Pulse Rate 70 63 63 Pulse Rate [ Anterior Bilateral Throughout] Respiratory Rate Respiratory Rate [Anterior Bilateral Throughout] Blood Pressure 135/69 135/69 O2 Sat by Pulse Oximetry 11/21/16 11/21/16 11/21/16 11:31 11:47 13:22 Temperature 97.3 F L Pulse Rate 63 84 Pulse Rate [ 70 Anterior Bilateral Throughout] Respiratory 20 Rate Respiratory 18 Rate [Anterior Bilateral Throughout] Blood Pressure 135/69 106/65 O2 Sat by Pulse 100 Oximetry 11/21/16 11/21/16 11/21/16 13:28 16:36 19:54 Temperature 98.5 F Pulse Rate 74 Pulse Rate [ 75 71 Anterior Bilateral Throughout] Respiratory 20 Rate Respiratory 18 19 Rate [Anterior Bilateral Throughout] Blood Pressure 144/70 O2 Sat by Pulse 97 Oximetry 11/21/16 11/21/16 19:56 20:00 Temperature 98 F Pulse Rate 74 Pulse Rate [ Anterior Bilateral Throughout] Respiratory 19 Rate Respiratory Rate [Anterior Bilateral Throughout] Blood Pressure 134/65 O2 Sat by Pulse 97 98 Oximetry Constitutional: no acute distress, alert Eyes: non-icteric ENT: oropharynx moist Neck: supple, no JVD Effort: normal Ascultation: Bilateral: diminished breath sounds, rales (basilar and scant) Cardiovascular: regular rate and rhythm Gastrointestinal: normoactive bowel sounds, soft, non-tender, non-distended Integumentary: normal Extremities: no cyanosis, no edema, pulses normal, no ischemia or petechiae Neurologic: normal mental status, non-focal exam, CN II-XII normal Psychiatric: mood appropriate, affect normal CBC and BMP: 11/21/16 05:25 11/21/16 05:25 ABG, PT/INR, D-dimer: ABG POC ABG pH 7.413 (7.35-7.45) 11/18/16 10:48 POC ABG pCO2 34.6 (35-45) L 11/18/16 10:48 POC ABG pO2 79 (80-105) L 11/18/16 10:48 POC ABG HCO3 22.1 11/18/16 10:48 POC ABG Total CO2 23 11/18/16 10:48 POC ABG O2 Sat 96 11/18/16 10:48 PT/INR, D-dimer PT 14.0 Sec. (12.2-14.9) 11/21/16 18:25 INR 1.09 (0.87-1.13) 11/21/16 18:25 D-Dimer 1575.53 ng/mlDDU (0-234) H 11/07/16 16:35 Abnormal lab findings: Abnormal Labs 11/07/16 11/08/16 11/08/16 21:43 06:45 06:45 WBC RBC 2.37 L Hgb 7.6 L Hct 23.3 L D MCV 98 H MCH RDW Plt Count Lymph % (Auto) 8.0 L Lymph # 0.5 L Seg Neutrophils % 89.2 H Seg Neuts % (Manual) Lymphocytes % (Manual) Seg Neutrophils # Man Lymphocytes # (Manual) Percent Retic PT INR APTT Heparin Anti-Xa Level POC ABG pCO2 POC ABG pO2 Sodium Potassium Chloride Carbon Dioxide 17 L BUN 52 H Creatinine 3.3 H Glucose 263 H POC Glucose Calcium TIBC AST 164 H Total Creatine Kinase 1584 H CK-MB (CK-2) 268.6 H CK-MB (CK-2) Rel Index 16.9 H C-Reactive Protein Total Protein 5.6 L Albumin 2.5 L Vitamin B12 Urine WBC (Auto) U Epithel Cells (Auto) Urine Creatinine Urine Total Protein 11/08/16 11/08/16 11/08/16 06:45 12:04 12:04 WBC RBC Hgb 8.0 L Hct 23.7 L MCV MCH RDW Plt Count Lymph % (Auto) Lymph # Seg Neutrophils % Seg Neuts % (Manual) Lymphocytes % (Manual) Seg Neutrophils # Man Lymphocytes # (Manual) Percent Retic PT 16.5 H INR 1.34 H APTT 38.5 H Heparin Anti-Xa Level POC ABG pCO2 POC ABG pO2 Sodium Potassium Chloride Carbon Dioxide BUN Creatinine Glucose POC Glucose Calcium TIBC AST Total Creatine Kinase 1273 H CK-MB (CK-2) 182.7 H CK-MB (CK-2) Rel Index 14.3 H C-Reactive Protein Total Protein Albumin Vitamin B12 Urine WBC (Auto) U Epithel Cells (Auto) Urine Creatinine Urine Total Protein 11/08/16 11/08/16 11/08/16 13:56 13:56 17:09 WBC RBC Hgb Hct MCV MCH RDW Plt Count Lymph % (Auto) Lymph # Seg Neutrophils % Seg Neuts % (Manual) Lymphocytes % (Manual) Seg Neutrophils # Man Lymphocytes # (Manual) Percent Retic PT INR APTT Heparin Anti-Xa Level POC ABG pCO2 POC ABG pO2 Sodium Potassium Chloride Carbon Dioxide BUN Creatinine Glucose POC Glucose Calcium TIBC AST Total Creatine Kinase 947 H CK-MB (CK-2) 91.7 H CK-MB (CK-2) Rel Index 9.6 H C-Reactive Protein Total Protein Albumin Vitamin B12 Urine WBC (Auto) 25.0 H U Epithel Cells (Auto) 20.0 H Urine Creatinine 161.2 H Urine Total Protein 146 H 11/08/16 11/09/16 11/09/16 17:09 03:19 07:04 WBC RBC Hgb 8.6 L Hct 26.1 L MCV MCH RDW Plt Count Lymph % (Auto) Lymph # Seg Neutrophils % Seg Neuts % (Manual) Lymphocytes % (Manual) Seg Neutrophils # Man Lymphocytes # (Manual) Percent Retic PT INR APTT Heparin Anti-Xa Level POC ABG pCO2 POC ABG pO2 Sodium 135 L Potassium 5.7 H D Chloride Carbon Dioxide 15 L BUN 70 H Creatinine 5.0 H D Glucose 169 H POC Glucose Calcium 7.9 L TIBC AST Total Creatine Kinase CK-MB (CK-2) CK-MB (CK-2) Rel Index C-Reactive Protein 5.80 H Total Protein Albumin Vitamin B12 Urine WBC (Auto) U Epithel Cells (Auto) Urine Creatinine Urine Total Protein 11/09/16 11/10/16 11/10/16 21:00 04:32 07:16 WBC RBC Hgb 8.4 L Hct 25.6 L MCV MCH RDW Plt Count 111 L Lymph % (Auto) Lymph # Seg Neutrophils % Seg Neuts % (Manual) Lymphocytes % (Manual) Seg Neutrophils # Man Lymphocytes # (Manual) Percent Retic PT INR APTT Heparin Anti-Xa Level 0.91 H 0.12 L POC ABG pCO2 POC ABG pO2 Sodium Potassium Chloride Carbon Dioxide BUN Creatinine Glucose POC Glucose Calcium TIBC AST Total Creatine Kinase CK-MB (CK-2) CK-MB (CK-2) Rel Index C-Reactive Protein Total Protein Albumin Vitamin B12 Urine WBC (Auto) U Epithel Cells (Auto) Urine Creatinine Urine Total Protein 11/10/16 11/10/16 11/10/16 10:05 18:10 19:09 WBC RBC Hgb Hct MCV MCH RDW Plt Count Lymph % (Auto) Lymph # Seg Neutrophils % Seg Neuts % (Manual) Lymphocytes % (Manual) Seg Neutrophils # Man Lymphocytes # (Manual) Percent Retic 4.37 H PT INR APTT Heparin Anti-Xa Level POC ABG pCO2 POC ABG pO2 Sodium Potassium Chloride 97.2 L Carbon Dioxide BUN 62 H Creatinine 4.4 H Glucose 206 H POC Glucose Calcium 7.0 L TIBC 237 L AST Total Creatine Kinase CK-MB (CK-2) CK-MB (CK-2) Rel Index C-Reactive Protein Total Protein Albumin Vitamin B12 Urine WBC (Auto) U Epithel Cells (Auto) Urine Creatinine Urine Total Protein 11/13/16 11/13/16 11/13/16 04:47 04:47 05:48 WBC RBC 2.82 L Hgb 9.1 L Hct 27.8 L MCV 99 H MCH RDW Plt Count 89 L Lymph % (Auto) Lymph # Seg Neutrophils % Seg Neuts % (Manual) 92.0 H Lymphocytes % (Manual) 5.0 L Seg Neutrophils # Man 7.8 H Lymphocytes # (Manual) 0.4 L Percent Retic PT INR APTT Heparin Anti-Xa Level POC ABG pCO2 POC ABG pO2 Sodium Potassium Chloride 96.8 L Carbon Dioxide BUN 60 H Creatinine 3.6 H Glucose 175 H POC Glucose 174 H Calcium 7.1 L TIBC AST Total Creatine Kinase CK-MB (CK-2) CK-MB (CK-2) Rel Index C-Reactive Protein Total Protein Albumin Vitamin B12 Urine WBC (Auto) U Epithel Cells (Auto) Urine Creatinine Urine Total Protein 11/14/16 11/16/16 11/16/16 08:49 05:29 16:38 WBC RBC Hgb Hct MCV MCH RDW Plt Count Lymph % (Auto) Lymph # Seg Neutrophils % Seg Neuts % (Manual) Lymphocytes % (Manual) Seg Neutrophils # Man Lymphocytes # (Manual) Percent Retic PT INR APTT Heparin Anti-Xa Level POC ABG pCO2 POC ABG pO2 Sodium 136 L 132 L Potassium Chloride 94.4 L 90.7 L Carbon Dioxide 19 L BUN 92 H 136 H Creatinine 4.5 H 5.0 H Glucose 196 H 223 H POC Glucose 143 H Calcium 7.2 L 7.3 L TIBC AST Total Creatine Kinase CK-MB (CK-2) CK-MB (CK-2) Rel Index C-Reactive Protein Total Protein Albumin Vitamin B12 Urine WBC (Auto) U Epithel Cells (Auto) Urine Creatinine Urine Total Protein 11/17/16 11/17/16 11/17/16 05:42 05:42 21:08 WBC RBC 2.93 L Hgb 9.7 L Hct 28.8 L MCV 98 H MCH 33 H RDW 15.5 H Plt Count 105 L Lymph % (Auto) Lymph # Seg Neutrophils % Seg Neuts % (Manual) Lymphocytes % (Manual) Seg Neutrophils # Man Lymphocytes # (Manual) Percent Retic PT INR APTT Heparin Anti-Xa Level POC ABG pCO2 POC ABG pO2 Sodium 136 L Potassium Chloride 94.4 L Carbon Dioxide BUN 78 H Creatinine 3.4 H Glucose 204 H POC Glucose 190 H Calcium 7.5 L TIBC AST Total Creatine Kinase CK-MB (CK-2) CK-MB (CK-2) Rel Index C-Reactive Protein Total Protein Albumin Vitamin B12 Urine WBC (Auto) U Epithel Cells (Auto) Urine Creatinine Urine Total Protein 11/18/16 11/18/16 11/18/16 05:00 05:00 07:38 WBC 11.8 H RBC 3.01 L Hgb 9.7 L Hct MCV 101 H MCH RDW 15.5 H Plt Count 68 L Lymph % (Auto) Lymph # Seg Neutrophils % Seg Neuts % (Manual) 96.0 H Lymphocytes % (Manual) 2.0 L Seg Neutrophils # Man 11.3 H Lymphocytes # (Manual) 0.2 L Percent Retic PT INR APTT Heparin Anti-Xa Level POC ABG pCO2 POC ABG pO2 Sodium 128 L D Potassium 5.3 H Chloride 89.7 L Carbon Dioxide 19 L BUN 104 H Creatinine 4.5 H Glucose 174 H POC Glucose 172 H Calcium 7.5 L TIBC AST Total Creatine Kinase CK-MB (CK-2) CK-MB (CK-2) Rel Index C-Reactive Protein Total Protein Albumin Vitamin B12 Urine WBC (Auto) U Epithel Cells (Auto) Urine Creatinine Urine Total Protein 11/18/16 11/19/16 11/19/16 10:48 03:30 20:41 WBC RBC 2.95 L Hgb 9.6 L Hct 29.4 L MCV 100 H MCH 33 H RDW 15.3 H Plt Count 115 L Lymph % (Auto) Lymph # Seg Neutrophils % Seg Neuts % (Manual) Lymphocytes % (Manual) Seg Neutrophils # Man Lymphocytes # (Manual) Percent Retic PT INR APTT Heparin Anti-Xa Level POC ABG pCO2 34.6 L POC ABG pO2 79 L Sodium Potassium Chloride Carbon Dioxide BUN Creatinine Glucose POC Glucose 309 H Calcium TIBC AST Total Creatine Kinase CK-MB (CK-2) CK-MB (CK-2) Rel Index C-Reactive Protein Total Protein Albumin Vitamin B12 Urine WBC (Auto) U Epithel Cells (Auto) Urine Creatinine Urine Total Protein 11/20/16 11/20/16 11/20/16 05:50 05:50 07:41 WBC RBC 3.03 L Hgb 9.8 L Hct 29.9 L MCV 99 H MCH RDW Plt Count 116 L Lymph % (Auto) Lymph # Seg Neutrophils % Seg Neuts % (Manual) 96.0 H Lymphocytes % (Manual) 2.0 L Seg Neutrophils # Man 9.7 H Lymphocytes # (Manual) 0.2 L Percent Retic PT INR APTT Heparin Anti-Xa Level POC ABG pCO2 POC ABG pO2 Sodium 132 L Potassium Chloride 95.5 L Carbon Dioxide BUN 85 H Creatinine 3.1 H Glucose 199 H POC Glucose 182 H Calcium 7.9 L TIBC AST Total Creatine Kinase CK-MB (CK-2) CK-MB (CK-2) Rel Index C-Reactive Protein Total Protein Albumin Vitamin B12 Urine WBC (Auto) U Epithel Cells (Auto) Urine Creatinine Urine Total Protein 11/20/16 11/20/16 11/20/16 12:04 21:16 21:23 WBC RBC Hgb Hct MCV MCH RDW Plt Count Lymph % (Auto) Lymph # Seg Neutrophils % Seg Neuts % (Manual) Lymphocytes % (Manual) Seg Neutrophils # Man Lymphocytes # (Manual) Percent Retic PT INR APTT Heparin Anti-Xa Level POC ABG pCO2 POC ABG pO2 Sodium 131 L Potassium Chloride 93.3 L Carbon Dioxide BUN 53 H Creatinine 2.0 H Glucose 163 H POC Glucose 179 H Calcium 8.2 L TIBC AST 42 H Total Creatine Kinase CK-MB (CK-2) CK-MB (CK-2) Rel Index C-Reactive Protein Total Protein 5.3 L Albumin 2.4 L Vitamin B12 1454 H Urine WBC (Auto) U Epithel Cells (Auto) Urine Creatinine Urine Total Protein 11/21/16 11/21/16 11/21/16 05:25 05:25 16:44 WBC RBC 2.94 L Hgb 9.5 L Hct 28.7 L MCV 98 H MCH RDW 15.3 H Plt Count 113 L Lymph % (Auto) Lymph # Seg Neutrophils % Seg Neuts % (Manual) 91.0 H Lymphocytes % (Manual) 6.0 L Seg Neutrophils # Man 9.1 H Lymphocytes # (Manual) 0.6 L Percent Retic PT INR APTT Heparin Anti-Xa Level POC ABG pCO2 POC ABG pO2 Sodium 133 L Potassium Chloride 95.6 L Carbon Dioxide BUN 67 H Creatinine 2.3 H Glucose 187 H POC Glucose 129 H Calcium 8.3 L TIBC AST Total Creatine Kinase CK-MB (CK-2) CK-MB (CK-2) Rel Index C-Reactive Protein Total Protein Albumin Vitamin B12 Urine WBC (Auto) U Epithel Cells (Auto) Urine Creatinine Urine Total Protein Allied health notes reviewed: RT
[2016-11-21] MEDS: SENOKOT S PO SCH (21:17)
[2016-11-22 06:04] LABS: Hematocrit 26.7 % (30.3-42.9); Hemoglobin 8.8 gm/dl (10.1-14.3); Mean Corpuscular HGB Conc 33 % (30-34); Mean Corpuscular Hemoglobin 33 pg (28-32); Mean Corpuscular Volume 98 fl (79-97); Platelet Count 126 K/mm3 (140-440); Red Blood Count 2.72 M/mm3 (3.65-5.03); Red Cell Distribution Width 15.3 % (13.2-15.2); White Blood Count 9.9 K/mm3 (4.5-11.0)
[2016-11-22 06:09] LABS: BUN/Creatinine Ratio 27.41; Calcium 7.7 mg/dL (8.4-10.2); Chloride 95.2 mmol/L (98-107); Potassium 4.6 mmol/L (3.6-5.0)
[2016-11-22 07:12] LABS: Anisocytosis 1+; Basophils % (Manual) 0 % (0.0-1.8); Blastocytes % (Manual) 0 %; Eosinophils % (Manual) 0 % (0.0-4.3); Hypersegmented Neutrophils Few; Hypochromasia Few
[2016-11-22 07:13] LABS: Diff Status Complete; Schistocytes Rare
[2016-11-22 07:14] LABS: Platelet Estimate Consistent w Auto
[2016-11-22] MEDS: APRESOLINE PO SCH ×3 (08:11→21:15)
[2016-11-22] MEDS: DUONEB *Not for PRN Use IH SCH ×3 (08:39→20:00)
[2016-11-22] MEDS: NAMENDA XR PO SCH (10:49)
[2016-11-22] MEDS: PLAVIX PO SCH (10:49)
[2016-11-22] MEDS: IMDUR PO SCH ×2 (10:49→11:12)
[2016-11-22] MEDS: COREG PO SCH ×2 (10:50→22:25)
[2016-11-22] MEDS: NORVASC PO SCH (10:52)
[2016-11-22] MEDS: OYSCO D 500 MG-200 UNIT PO SCH (10:52)
[2016-11-22] MEDS: PROTONIX PO SCH (10:52)
--- NOTE | 2016-11-22 11:05 | Progress Note ---
Assessment and Plan - Patient Problems (1) NSTEMI (non-ST elevated myocardial infarction) Current Visit: Yes Status: Acute Plan to address problem: We'll proceed with an intervention to the circumflex and possibly the LAD tomorrow morning. Risks and benefits as outlined previously have been extensively discussed with the patient, her daughter and son-in-law, they understand risks and willing to proceed with coronary intervention. (2) Thrombocytopenia Current Visit: Yes Status: Acute Plan to address problem: Thrombocytopenia has been evaluated by hematology, the numbers are stable, 122, 000 today. (3) Anemia Current Visit: Yes Status: Acute Qualifiers: Anemia type: A Iron deficiency anemia type: I Vitamin B12 deficiency anemia type: V Folate deficiency anemia type: F Bone marrow failure anemia type: B Hemolytic anemia type: H Other causes of anemia: O Chronic kidney disease stage: C Plan to address problem: Anemia has been fully evaluated by gastroenterology who have given okay to proceed with coronary intervention on anticoagulation, hematocrit has remained stable, and the patient is tolerating aspirin and Plavix therapy. Subjective Date of service: 11/22/16 Principal diagnosis: Acute Hypoxemic Respiratory Failure Interval history: Patient is comfortable in no acute distress. Hematocrit today is 26.7, and platelet count 122,000. No new cardiac complaints. Objective Vital Signs Temp Pulse Pulse Resp Resp BP Pulse Ox 11/22/16 08:48 60 16 11/22/16 08:45 96 11/22/16 08:35 65 20 11/22/16 07:47 98.4 F 67 20 137/67 98 11/22/16 04:00 98.1 F 71 18 113/54 98 11/22/16 00:00 98.3 F 70 18 134/64 97 11/21/16 22:00 18 11/21/16 21:17 71 145/70 11/21/16 21:16 71 145/70 11/21/16 20:19 76 20 11/21/16 20:00 98 F 74 19 134/65 98 11/21/16 19:56 97 11/21/16 19:54 71 19 11/21/16 16:36 98.5 F 74 20 144/70 97 11/21/16 13:28 75 18 11/21/16 13:22 70 18 11/21/16 11:47 97.3 F L 84 20 106/65 100 11/21/16 11:31 63 135/69 11/21/16 11:26 63 135/69 11/21/16 11:25 63 135/69 - Physical Examination General: No Apparent Distress HEENT: Positive: PERRL Neck: Positive: trachea midline Cardiac: Positive: Reg Rate and Rhythm Lungs: Positive: Decreased Breath Sounds Neuro: Positive: Grossly Intact Abdomen: Positive: Soft, Active Bowel Sounds Skin: Positive: Clear Extremities: Absent: edema - Labs and Meds Coagulation 11/21/16 Range/Units 18:25 PT 14.0 (12.2-14.9) Sec. INR 1.09 (0.87-1.13) APTT 27.3 (24.2-36.6) Sec. CBC 11/22/16 Range/Units 05:13 WBC 9.9 (4.5-11.0) K/mm3 RBC 2.72 L (3.65-5.03) M/mm3 Hgb 8.8 L (10.1-14.3) gm/dl Hct 26.7 L (30.3-42.9) % Plt Count 126 L (140-440) K/mm3 Comprehensive Metabolic Panel 11/22/16 Range/Units 05:13 Sodium 132 L (137-145) mmol/L Potassium 4.6 (3.6-5.0) mmol/L Chloride 95.2 L (98-107) mmol/L Carbon Dioxide 22 (22-30) mmol/L BUN 85 H (7-17) mg/dL Creatinine 3.1 H (0.7-1.2) mg/dL Glucose 184 H (65-100) mg/dL Calcium 7.7 L (8.4-10.2) mg/dL - Imaging and Cardiology EKG: report reviewed (Sinus Tach pvc's LVH 119/min Repolarization abnormalities) - Allied health notes Allied health notes reviewed: RT
[2016-11-22] MEDS: BABY ASPIRIN PO SCH (11:11)
--- NOTE | 2016-11-22 12:29 | Progress Note ---
Assessment and Plan Assessment and plan: NSTEMI. [facility] this admission reports a 80% proximal OM2, 60-70% mid LAD, severe diffuse disease of a small distal RCA with left to right collaterals. Cardiology to potentially schedule coronary intervention Wednesday if platelet counts remain stable.. NATHALIA vs CKD. Patient initiated on dialysis this admission. Currently with Wednesday, Wednesday and Wednesday schedule. Renal ultrasound showing no hydronephrosis. Valsartan and Lasix have been discontinued. Acute decompensated systolic heart failure. Continue hemodialysis as above for volume control. Cardiology following. Transthoracic echocardiogram report by Dr. Shane read as left ventricular chamber size severely dilated, global left systolic function is severely decreased, estimated ejection fraction is 10-15%, mild concentric left ventricular hypertrophy, left atrium is severely dilated, moderate to severe MR, mild to moderate TR, evidence of mild pulmonary hypertension, trivial pericardial effusion, catheters visualizing right atrium. Anemia. EGD/Flex this admission reports mild non-erosive gastritis and hemorrhoids. GI following. GI reports no contraindication to proceeding to cardiac cath/DAPT at present. Thrombocytopenia. Hematology consultation. Check HIT panel. Follow-up CBC in a.m. Severe Cardiomyopathy. LVEF 10-15% on echocardiogram. Moderate to severe mitral regurgitation hx CVA Hypertension. Continue antihypertensive medications. History Interval history: No new issues overnight. Hospitalist Physical - Constitutional Vitals: Temp Pulse Resp BP Pulse Ox 97.6 F 67 20 137/65 97 11/22/16 11:38 11/22/16 11:38 11/22/16 11:38 11/22/16 11:38 11/22/16 11:38 General appearance: Present: no acute distress, well-nourished - EENT Eyes: Present: PERRL, EOM intact ENT: hearing intact, clear oral mucosa, dentition normal - Neck Neck: Present: supple, normal ROM - Respiratory Respiratory effort: normal Respiratory: bilateral: CTA - Cardiovascular Rhythm: regular Heart Sounds: Present: S1 & S2. Absent: gallop, rub - Extremities Extremities: no ischemia, No edema, Full ROM - Abdominal General gastrointestinal: soft, non-tender, non-distended, normal bowel sounds - Integumentary Integumentary: Present: clear, warm, dry - Neurologic Neurologic: CNII-XII intact, moves all extremities Results - Labs CBC & Chem 7: 11/22/16 05:13 11/22/16 05:13 Labs: Laboratory Last Values WBC 9.9 K/mm3 (4.5-11.0) 11/22/16 05:13 RBC 2.72 M/mm3 (3.65-5.03) L 11/22/16 05:13 Hgb 8.8 gm/dl (10.1-14.3) L 11/22/16 05:13 Hct 26.7 % (30.3-42.9) L 11/22/16 05:13 MCV 98 fl (79-97) H 11/22/16 05:13 MCH 33 pg (28-32) H 11/22/16 05:13 MCHC 33 % (30-34) 11/22/16 05:13 RDW 15.3 % (13.2-15.2) H 11/22/16 05:13 Plt Count 126 K/mm3 (140-440) L 11/22/16 05:13 Lymph % (Auto) Lamination Inspector 11/18/16 05:00 [place] % (Auto) Lamination Inspector 11/18/16 05:00 Eos % (Auto) Lamination Inspector 11/18/16 05:00 Baso % (Auto) Lamination Inspector 11/18/16 05:00 Lymph # Lamination Inspector 11/18/16 05:00 Dundy # Lamination Inspector 11/18/16 05:00 Eos # Lamination Inspector 11/18/16 05:00 Baso # Lamination Inspector 11/18/16 05:00 Add Manual Diff Complete 11/22/16 05:13 Total Counted 100 11/22/16 05:13 Seg Neutrophils % Lamination Inspector 11/22/16 05:13 Seg Neuts % (Manual) 90.0 % (40.0-70.0) H 11/22/16 05:13 Band Neutrophils % 4.0 % 11/22/16 05:13 Lymphocytes % (Manual) 3.0 % (13.4-35.0) L 11/22/16 05:13 Reactive Lymphs % (Man) 0 % 11/22/16 05:13 Monocytes % (Manual) 3.0 % (0.0-7.3) 11/22/16 05:13 Eosinophils % (Manual) 0 % (0.0-4.3) 11/22/16 05:13 Basophils % (Manual) 0 % (0.0-1.8) 11/22/16 05:13 Metamyelocytes % 0 % 11/22/16 05:13 Myelocytes % 0 % 11/22/16 05:13 Promyelocytes % 0 % 11/22/16 05:13 Blast Cells % 0 % 11/22/16 05:13 Nucleated RBC % Not Reportable 11/22/16 05:13 Seg Neutrophils # Lamination Inspector 11/18/16 05:00 Seg Neutrophils # Man 8.9 K/mm3 (1.8-7.7) H 11/22/16 05:13 Band Neutrophils # 0.4 K/mm3 11/22/16 05:13 Lymphocytes # (Manual) 0.3 K/mm3 (1.2-5.4) L 11/22/16 05:13 Abs React Lymphs (Man) 0.0 K/mm3 11/22/16 05:13 Monocytes # (Manual) 0.3 K/mm3 (0.0-0.8) 11/22/16 05:13 Eosinophils # (Manual) 0.0 K/mm3 (0.0-0.4) 11/22/16 05:13 Basophils # (Manual) 0.0 K/mm3 (0.0-0.1) 11/22/16 05:13 Metamyelocytes # 0.0 K/mm3 11/22/16 05:13 Myelocytes # 0.0 K/mm3 11/22/16 05:13 Promyelocytes # 0.0 K/mm3 11/22/16 05:13 Blast Cells # 0.0 K/mm3 11/22/16 05:13 WBC Morphology Not Reportable 11/22/16 05:13 Hypersegmented Neuts Few 11/22/16 05:13 Hyposegmented Neuts Not Reportable 11/22/16 05:13 Hypogranular Neuts Not Reportable 11/22/16 05:13 Smudge Cells Not Reportable 11/22/16 05:13 Toxic Granulation Not Reportable 11/22/16 05:13 Toxic Vacuolation Not Reportable 11/22/16 05:13 Dohle Bodies Not Reportable 11/22/16 05:13 Pelger-Huet Anomaly Not Reportable 11/22/16 05:13 Tamanna Rods Not Reportable 11/22/16 05:13 Platelet Estimate Consistent w auto 11/22/16 05:13 Clumped Platelets Not Reportable 11/22/16 05:13 Plt Clumps, EDTA Not Reportable 11/22/16 05:13 Large Platelets Not Reportable 11/22/16 05:13 Giant Platelets Not Reportable 11/22/16 05:13 Platelet Satelliting Not Reportable 11/22/16 05:13 Plt Morphology Comment Not Reportable 11/22/16 05:13 RBC Morphology Not Reportable 11/22/16 05:13 Dimorphic RBCs Not Reportable 11/22/16 05:13 Polychromasia Not Reportable 11/22/16 05:13 Hypochromasia Few 11/22/16 05:13 Poikilocytosis Not Reportable 11/22/16 05:13 Anisocytosis 1+ 11/22/16 05:13 Microcytosis Not Reportable 11/22/16 05:13 Macrocytosis Not Reportable 11/22/16 05:13 Spherocytes Not Reportable 11/22/16 05:13 Pappenheimer Bodies Not Reportable 11/22/16 05:13 Sickle Cells Not Reportable 11/22/16 05:13 Target Cells Not Reportable 11/22/16 05:13 Tear Drop Cells Not Reportable 11/22/16 05:13 Ovalocytes Not Reportable 11/22/16 05:13 Helmet Cells Not Reportable 11/22/16 05:13 Ramos-Ranshaw Bodies Not Reportable 11/22/16 05:13 [place] Rings Not Reportable 11/22/16 05:13 [place] Cells Not Reportable 11/22/16 05:13 Bite Cells Not Reportable 11/22/16 05:13 Crenated Cell Not Reportable 11/22/16 05:13 Elliptocytes Not Reportable 11/22/16 05:13 Acanthocytes (Spur) Not Reportable 11/22/16 05:13 Rouleaux Not Reportable 11/22/16 05:13 Hemoglobin C Crystals Not Reportable 11/22/16 05:13 Schistocytes Rare 11/22/16 05:13 Malaria parasites Not Reportable 11/22/16 05:13 Percent Retic 4.37 % (0.78-2.58) H 11/10/16 19:09 Javi Bodies Not Reportable 11/22/16 05:13 Hem Pathologist Commnt No 11/22/16 05:13 PT 14.0 Sec. (12.2-14.9) 11/21/16 18:25 INR 1.09 (0.87-1.13) 11/21/16 18:25 APTT 27.3 Sec. (24.2-36.6) 11/21/16 18:25 D-Dimer 1575.53 ng/mlDDU (0-234) H 11/07/16 16:35 Heparin Anti-Xa Level 0.12 U.I./ml (0.3-0.7) L 11/10/16 07:16 Heparin Anti-Xa, Unfract Negative (Negative) 11/17/16 09:17 POC ABG pH 7.413 (7.35-7.45) 11/18/16 10:48 POC ABG pCO2 34.6 (35-45) L 11/18/16 10:48 POC ABG pO2 79 (80-105) L 11/18/16 10:48 POC ABG HCO3 22.1 11/18/16 10:48 POC ABG Total CO2 23 11/18/16 10:48 POC ABG O2 Sat 96 11/18/16 10:48 POC ABG Base Excess -3 11/18/16 10:48 FiO2 21 % 11/18/16 10:48 Sodium 132 mmol/L (137-145) L 11/22/16 05:13 Potassium 4.6 mmol/L (3.6-5.0) 11/22/16 05:13 Chloride 95.2 mmol/L (98-107) L 11/22/16 05:13 Carbon Dioxide 22 mmol/L (22-30) 11/22/16 05:13 Anion Gap 19 mmol/L 11/22/16 05:13 BUN 85 mg/dL (7-17) H 11/22/16 05:13 Creatinine 3.1 mg/dL (0.7-1.2) H 11/22/16 05:13 Estimated GFR 18 ml/min 11/22/16 05:13 BUN/Creatinine Ratio 27.41 % 11/22/16 05:13 Glucose 184 mg/dL (65-100) H 11/22/16 05:13 POC Glucose 227 (70-105) H 11/21/16 22:24 Hemoglobin A1c 4.8 % (4-6) 11/07/16 16:35 Lactic Acid 1.10 mmol/L (0.7-2.0) 11/09/16 03:19 Calcium 7.7 mg/dL (8.4-10.2) L 11/22/16 05:13 Iron 70 ug/dL (37-170) 11/10/16 18:10 TIBC 237 mcg/dL (250-450) L 11/10/16 18:10 Ferritin 211.2 ng/mL (13.0-400.0) 11/10/16 18:10 Total Bilirubin 0.60 mg/dL (0.1-1.2) 11/20/16 21:16 AST 42 units/L (5-40) H 11/20/16 21:16 ALT 30 units/L (7-56) 11/20/16 21:16 Alkaline Phosphatase 95 units/L (35-129) 11/20/16 21:16 Total Creatine Kinase 947 units/L (30-135) H 11/08/16 17:09 CK-MB (CK-2) 91.7 ng/mL (0.0-4.0) H 11/08/16 17:09 CK-MB (CK-2) Rel Index 9.6 (0-4) H 11/08/16 17:09 Troponin T 6.920 ng/mL (0.00-0.029) H* 11/07/16 18:36 C-Reactive Protein 5.80 mg/dL (0.00-1.30) H 11/08/16 17:09 NT-Pro-B Natriuret Pep 68845 pg/mL (0-900) H 11/07/16 16:35 Total Protein 5.3 g/dL (6.3-8.2) L 11/20/16 21:16 Albumin 2.4 g/dL (3.9-5) L 11/20/16 21:16 Albumin/Globulin Ratio 0.8 % 11/20/16 21:16 Triglycerides 69 mg/dL (2-149) 11/07/16 16:35 Cholesterol 129 mg/dL (50-199) 11/07/16 16:35 LDL Cholesterol Direct 56 mg/dL (50-130) 11/07/16 16:35 HDL Cholesterol 60 mg/dL (40-59) H 11/07/16 16:35 Cholesterol/HDL Ratio 2.15 % 11/07/16 16:35 Vitamin B12 1454 pg/mL (211-911) H 11/20/16 21:23 Folate 13.54 ng/mL (7.3-26.0) 11/20/16 21:24 TSH 4.120 mlU/mL (0.270-4.200) 11/09/16 15:38 Urine Color Yellow (Yellow) 11/08/16 13:56 Urine Turbidity Cloudy (Clear) 11/08/16 13:56 Urine pH 5.0 (5.0-7.0) 11/08/16 13:56 Ur Specific [place] 1.013 (1.003-1.030) 11/08/16 13:56 Urine Protein 100 mg/dl mg/dL (Negative) 11/08/16 13:56 Urine Glucose (UA) Neg mg/dL (Negative) 11/08/16 13:56 Urine Ketones Neg mg/dL (Negative) 11/08/16 13:56 Urine Blood Lg (Negative) 11/08/16 13:56 Urine Nitrite Neg (Negative) 11/08/16 13:56 Urine Bilirubin Neg (Negative) 11/08/16 13:56 Urine Urobilinogen < 2.0 mg/dL (<2.0) 11/08/16 13:56 Ur Leukocyte Esterase Mod (Negative) 11/08/16 13:56 Urine WBC (Auto) 25.0 /HPF (0.0-6.0) H 11/08/16 13:56 Urine RBC (Auto) > 182.0 /HPF (0.0-6.0) 11/08/16 13:56 U Epithel Cells (Auto) 20.0 /HPF (0-13.0) H 11/08/16 13:56 Urine WBC Clumps Few /HPF 11/08/16 13:56 Ur Transition Epith Cell 2 /HPF 11/08/16 13:56 Urine Creatinine 161.2 mg/dL (0.1-20.0) H 11/08/16 13:56 Protein/Creatinin Ratio 0.91 11/08/16 13:56 Urine Total Protein 146 mg/dL (5-11.8) H 11/08/16 13:56 Heparin-induced Plt Ab Negative (Negative) 11/17/16 09:17 UF Heparin High Dose 0 % Release 11/17/16 09:17 EREN UFH Low Dose 0.1 0 % Release 11/17/16 09:17 EREN UFH Low Dose 0.5 0 % Release 11/17/16 09:17 Hep Bs Antigen Non-reactive (Negative) 11/10/16 04:32 Hepatitis C Antibody Non-reactive (NonReactive) 11/10/16 04:32
--- NOTE | 2016-11-22 14:21 | Progress Note ---
Assessment and Plan (1) NATHALIA vs CKD, Baseline unavailable, CRS, now requiring dialysis Current Visit: Yes Status: Acute Plan to address problem: HD on MWF schedule Renal U/S reviewed. No hydronephrosis Avoid nephrotoxics Valsartan/lisinopril and Lasix have been d/asher -hold off all ACEI/ARB till CR at a steady state Monitor for renal recovery (2) Acute systolic congestive herat failure Current Visit: Yes Status: Acute Plan to address problem: UF on dialysis Strict I/Os 2D echo report reviewed. It showed EF of 10-15 % (3) NSTEMI (non-ST elevated myocardial infarction) Current Visit: Yes Status: Acute Plan to address problem: Management per Cardio [facility] this admission reports a 80% proximal OM2, 60-70% mid LAD, severe diffuse disease of a small distal RCA with left to right collaterals. She is scheduled for cardiac intervention on Wednesday. (4) Acute hypoxic respiratory failure (Pneumonia /pulmonary edema) Current Visit: Yes Status: Acute improved with dialysis fluid removal (5) Essential HTN (hypertension) Current Visit: Yes Status: Chronic Qualifiers: Hypertension type: essential hypertension Qualified Code(s): I10 - Essential (primary) hypertension Plan to address problem: Stable. (6) GI bleeding Current Visit: Yes Status: Acute EGD today (7) Dementia Current Visit: Yes Status: Chronic Qualifiers: Dementia type: vascular dementia Alzheimer's disease onset: A Dementia behavioral disturbance: D Plan to address problem: Cont Namenda Discussed with family Subjective Date of service: 11/22/16 Principal diagnosis: Acute Hypoxemic Respiratory Failure Interval history: Family at bedside, No SOB/CP Objective - Exam Narrative Exam: General appearance: well-developed, well-nourished, appears stated age, no distress EENT: PERRL, mucous membranes moist Neck: Present: neck supple, trachea midline. Absent: JVD/HJR, Masses Respiratory: Decreased Breath Sounds, scattered wheezes Heart: regular, normal heart rate, S1S2, no murmurs Gastrointestinal: Present: normoactive bowel sounds. Absent: tenderness Integumentary: large area of bruises on her upper chest permcath area and LUE Neurologic: no focal deficit, alert and oriented x3, gait normal, strength 5/5 Musculoskeletal: Absent: deformities, joint swelling Psychiatric: mood/affect appropriate, cooperative - Vital Signs Vital signs: Vital Signs - 12hr 11/22/16 11/22/16 11/22/16 04:00 07:47 08:35 Temperature 98.1 F 98.4 F Pulse Rate 71 67 Pulse Rate [ 65 Anterior Bilateral Throughout] Respiratory 18 20 Rate Respiratory 20 Rate [Anterior Bilateral Throughout] Blood Pressure 113/54 137/67 O2 Sat by Pulse 98 98 Oximetry 11/22/16 11/22/16 11/22/16 08:45 08:48 11:38 Temperature 97.6 F Pulse Rate 67 Pulse Rate [ 60 Anterior Bilateral Throughout] Respiratory 20 Rate Respiratory 16 Rate [Anterior Bilateral Throughout] Blood Pressure 137/65 O2 Sat by Pulse 96 97 Oximetry - Lab 11/22/16 05:13 11/22/16 05:13 Most recent lab results Calcium 7.7 mg/dL (8.4-10.2) L 11/22/16 05:13 Urine Creatinine 161.2 mg/dL (0.1-20.0) H 11/08/16 13:56 Urine Total Protein 146 mg/dL (5-11.8) H 11/08/16 13:56
[2016-11-22] MEDS: SENOKOT S PO SCH (22:20)
--- NOTE | 2016-11-22 23:29 | Progress Note ---
Assessment and Plan Patient sleeping at this time. On 2 litres O2.O2 saturation 93%.No acute respiratory distress. - Patient Problems (1) Acute respiratory failure with hypoxia Current Visit: Yes Status: Acute Plan to address problem: Patient is on 2 litres O2. Albuterol/atrovent aerosol treatments q 6 hours. Decrease solumedral 20 mg I/V q 12 hours. Continue S/C Heparin. Continue Protonix. (2) NSTEMI (non-ST elevated myocardial infarction) Current Visit: Yes Status: Acute Plan to address problem: Management as per cardiology (3) Thrombocytopenia Current Visit: Yes Status: Acute Plan to address problem: Platelet count dropping ltest platelet count 126,000. (4) CKD (chronic kidney disease) stage 4, GFR 15-29 ml/min Current Visit: Yes Status: Chronic Plan to address problem: Management as per nephrology. Subjective Date of service: 11/22/16 Principal diagnosis: Acute Hypoxemic Respiratory Failure Interval history: Patient sleeping at this time. On 2 litres O2.O2 saturation 93%.No acute respiratory distress. Objective Vital Signs - 12hr 11/22/16 11/22/16 11/22/16 11:38 14:47 14:58 Temperature 97.6 F Pulse Rate 67 Pulse Rate [ 66 70 Anterior Bilateral Throughout] Respiratory 20 Rate Respiratory 18 16 Rate [Anterior Bilateral Throughout] Blood Pressure 137/65 O2 Sat by Pulse 97 Oximetry 11/22/16 11/22/16 11/22/16 15:54 19:10 20:01 Temperature 97.6 F 98.0 F Pulse Rate 65 80 Pulse Rate [ 87 Anterior Bilateral Throughout] Respiratory 20 18 Rate Respiratory 18 Rate [Anterior Bilateral Throughout] Blood Pressure 180/78 134/69 O2 Sat by Pulse 98 93 Oximetry 11/22/16 20:09 Temperature Pulse Rate Pulse Rate [ Anterior Bilateral Throughout] Respiratory Rate Respiratory Rate [Anterior Bilateral Throughout] Blood Pressure O2 Sat by Pulse 93 Oximetry Constitutional: no acute distress, alert Eyes: non-icteric ENT: oropharynx moist Neck: supple, no JVD Effort: normal Ascultation: Bilateral: diminished breath sounds, rales (basilar and scant) Cardiovascular: regular rate and rhythm Gastrointestinal: normoactive bowel sounds, soft, non-tender, non-distended Integumentary: normal Extremities: no cyanosis, no edema, pulses normal, no ischemia or petechiae Neurologic: normal mental status, non-focal exam, CN II-XII normal Psychiatric: mood appropriate, affect normal CBC and BMP: 11/22/16 05:13 11/22/16 05:13 ABG, PT/INR, D-dimer: ABG POC ABG pH 7.413 (7.35-7.45) 11/18/16 10:48 POC ABG pCO2 34.6 (35-45) L 11/18/16 10:48 POC ABG pO2 79 (80-105) L 11/18/16 10:48 POC ABG HCO3 22.1 11/18/16 10:48 POC ABG Total CO2 23 11/18/16 10:48 POC ABG O2 Sat 96 11/18/16 10:48 PT/INR, D-dimer PT 14.0 Sec. (12.2-14.9) 11/21/16 18:25 INR 1.09 (0.87-1.13) 11/21/16 18:25 D-Dimer 1575.53 ng/mlDDU (0-234) H 11/07/16 16:35 Abnormal lab findings: Abnormal Labs 11/07/16 11/08/16 11/08/16 21:43 06:45 06:45 WBC RBC 2.37 L Hgb 7.6 L Hct 23.3 L D MCV 98 H MCH RDW Plt Count Lymph % (Auto) 8.0 L Lymph # 0.5 L Seg Neutrophils % 89.2 H Seg Neuts % (Manual) Lymphocytes % (Manual) Seg Neutrophils # Man Lymphocytes # (Manual) Percent Retic PT INR APTT Heparin Anti-Xa Level POC ABG pCO2 POC ABG pO2 Sodium Potassium Chloride Carbon Dioxide 17 L BUN 52 H Creatinine 3.3 H Glucose 263 H POC Glucose Calcium TIBC AST 164 H Total Creatine Kinase 1584 H CK-MB (CK-2) 268.6 H CK-MB (CK-2) Rel Index 16.9 H C-Reactive Protein Total Protein 5.6 L Albumin 2.5 L Vitamin B12 Urine WBC (Auto) U Epithel Cells (Auto) Urine Creatinine Urine Total Protein 11/08/16 11/08/16 11/08/16 06:45 12:04 12:04 WBC RBC Hgb 8.0 L Hct 23.7 L MCV MCH RDW Plt Count Lymph % (Auto) Lymph # Seg Neutrophils % Seg Neuts % (Manual) Lymphocytes % (Manual) Seg Neutrophils # Man Lymphocytes # (Manual) Percent Retic PT 16.5 H INR 1.34 H APTT 38.5 H Heparin Anti-Xa Level POC ABG pCO2 POC ABG pO2 Sodium Potassium Chloride Carbon Dioxide BUN Creatinine Glucose POC Glucose Calcium TIBC AST Total Creatine Kinase 1273 H CK-MB (CK-2) 182.7 H CK-MB (CK-2) Rel Index 14.3 H C-Reactive Protein Total Protein Albumin Vitamin B12 Urine WBC (Auto) U Epithel Cells (Auto) Urine Creatinine Urine Total Protein 11/08/16 11/08/16 11/08/16 13:56 13:56 17:09 WBC RBC Hgb Hct MCV MCH RDW Plt Count Lymph % (Auto) Lymph # Seg Neutrophils % Seg Neuts % (Manual) Lymphocytes % (Manual) Seg Neutrophils # Man Lymphocytes # (Manual) Percent Retic PT INR APTT Heparin Anti-Xa Level POC ABG pCO2 POC ABG pO2 Sodium Potassium Chloride Carbon Dioxide BUN Creatinine Glucose POC Glucose Calcium TIBC AST Total Creatine Kinase 947 H CK-MB (CK-2) 91.7 H CK-MB (CK-2) Rel Index 9.6 H C-Reactive Protein Total Protein Albumin Vitamin B12 Urine WBC (Auto) 25.0 H U Epithel Cells (Auto) 20.0 H Urine Creatinine 161.2 H Urine Total Protein 146 H 11/08/16 11/09/16 11/09/16 17:09 03:19 07:04 WBC RBC Hgb 8.6 L Hct 26.1 L MCV MCH RDW Plt Count Lymph % (Auto) Lymph # Seg Neutrophils % Seg Neuts % (Manual) Lymphocytes % (Manual) Seg Neutrophils # Man Lymphocytes # (Manual) Percent Retic PT INR APTT Heparin Anti-Xa Level POC ABG pCO2 POC ABG pO2 Sodium 135 L Potassium 5.7 H D Chloride Carbon Dioxide 15 L BUN 70 H Creatinine 5.0 H D Glucose 169 H POC Glucose Calcium 7.9 L TIBC AST Total Creatine Kinase CK-MB (CK-2) CK-MB (CK-2) Rel Index C-Reactive Protein 5.80 H Total Protein Albumin Vitamin B12 Urine WBC (Auto) U Epithel Cells (Auto) Urine Creatinine Urine Total Protein 11/09/16 11/10/16 11/10/16 21:00 04:32 07:16 WBC RBC Hgb 8.4 L Hct 25.6 L MCV MCH RDW Plt Count 111 L Lymph % (Auto) Lymph # Seg Neutrophils % Seg Neuts % (Manual) Lymphocytes % (Manual) Seg Neutrophils # Man Lymphocytes # (Manual) Percent Retic PT INR APTT Heparin Anti-Xa Level 0.91 H 0.12 L POC ABG pCO2 POC ABG pO2 Sodium Potassium Chloride Carbon Dioxide BUN Creatinine Glucose POC Glucose Calcium TIBC AST Total Creatine Kinase CK-MB (CK-2) CK-MB (CK-2) Rel Index C-Reactive Protein Total Protein Albumin Vitamin B12 Urine WBC (Auto) U Epithel Cells (Auto) Urine Creatinine Urine Total Protein 11/10/16 11/10/16 11/10/16 10:05 18:10 19:09 WBC RBC Hgb Hct MCV MCH RDW Plt Count Lymph % (Auto) Lymph # Seg Neutrophils % Seg Neuts % (Manual) Lymphocytes % (Manual) Seg Neutrophils # Man Lymphocytes # (Manual) Percent Retic 4.37 H PT INR APTT Heparin Anti-Xa Level POC ABG pCO2 POC ABG pO2 Sodium Potassium Chloride 97.2 L Carbon Dioxide BUN 62 H Creatinine 4.4 H Glucose 206 H POC Glucose Calcium 7.0 L TIBC 237 L AST Total Creatine Kinase CK-MB (CK-2) CK-MB (CK-2) Rel Index C-Reactive Protein Total Protein Albumin Vitamin B12 Urine WBC (Auto) U Epithel Cells (Auto) Urine Creatinine Urine Total Protein 11/13/16 11/13/16 11/13/16 04:47 04:47 05:48 WBC RBC 2.82 L Hgb 9.1 L Hct 27.8 L MCV 99 H MCH RDW Plt Count 89 L Lymph % (Auto) Lymph # Seg Neutrophils % Seg Neuts % (Manual) 92.0 H Lymphocytes % (Manual) 5.0 L Seg Neutrophils # Man 7.8 H Lymphocytes # (Manual) 0.4 L Percent Retic PT INR APTT Heparin Anti-Xa Level POC ABG pCO2 POC ABG pO2 Sodium Potassium Chloride 96.8 L Carbon Dioxide BUN 60 H Creatinine 3.6 H Glucose 175 H POC Glucose 174 H Calcium 7.1 L TIBC AST Total Creatine Kinase CK-MB (CK-2) CK-MB (CK-2) Rel Index C-Reactive Protein Total Protein Albumin Vitamin B12 Urine WBC (Auto) U Epithel Cells (Auto) Urine Creatinine Urine Total Protein 11/14/16 11/16/16 11/16/16 08:49 05:29 16:38 WBC RBC Hgb Hct MCV MCH RDW Plt Count Lymph % (Auto) Lymph # Seg Neutrophils % Seg Neuts % (Manual) Lymphocytes % (Manual) Seg Neutrophils # Man Lymphocytes # (Manual) Percent Retic PT INR APTT Heparin Anti-Xa Level POC ABG pCO2 POC ABG pO2 Sodium 136 L 132 L Potassium Chloride 94.4 L 90.7 L Carbon Dioxide 19 L BUN 92 H 136 H Creatinine 4.5 H 5.0 H Glucose 196 H 223 H POC Glucose 143 H Calcium 7.2 L 7.3 L TIBC AST Total Creatine Kinase CK-MB (CK-2) CK-MB (CK-2) Rel Index C-Reactive Protein Total Protein Albumin Vitamin B12 Urine WBC (Auto) U Epithel Cells (Auto) Urine Creatinine Urine Total Protein 11/17/16 11/17/16 11/17/16 05:42 05:42 21:08 WBC RBC 2.93 L Hgb 9.7 L Hct 28.8 L MCV 98 H MCH 33 H RDW 15.5 H Plt Count 105 L Lymph % (Auto) Lymph # Seg Neutrophils % Seg Neuts % (Manual) Lymphocytes % (Manual) Seg Neutrophils # Man Lymphocytes # (Manual) Percent Retic PT INR APTT Heparin Anti-Xa Level POC ABG pCO2 POC ABG pO2 Sodium 136 L Potassium Chloride 94.4 L Carbon Dioxide BUN 78 H Creatinine 3.4 H Glucose 204 H POC Glucose 190 H Calcium 7.5 L TIBC AST Total Creatine Kinase CK-MB (CK-2) CK-MB (CK-2) Rel Index C-Reactive Protein Total Protein Albumin Vitamin B12 Urine WBC (Auto) U Epithel Cells (Auto) Urine Creatinine Urine Total Protein 11/18/16 11/18/16 11/18/16 05:00 05:00 07:38 WBC 11.8 H RBC 3.01 L Hgb 9.7 L Hct MCV 101 H MCH RDW 15.5 H Plt Count 68 L Lymph % (Auto) Lymph # Seg Neutrophils % Seg Neuts % (Manual) 96.0 H Lymphocytes % (Manual) 2.0 L Seg Neutrophils # Man 11.3 H Lymphocytes # (Manual) 0.2 L Percent Retic PT INR APTT Heparin Anti-Xa Level POC ABG pCO2 POC ABG pO2 Sodium 128 L D Potassium 5.3 H Chloride 89.7 L Carbon Dioxide 19 L BUN 104 H Creatinine 4.5 H Glucose 174 H POC Glucose 172 H Calcium 7.5 L TIBC AST Total Creatine Kinase CK-MB (CK-2) CK-MB (CK-2) Rel Index C-Reactive Protein Total Protein Albumin Vitamin B12 Urine WBC (Auto) U Epithel Cells (Auto) Urine Creatinine Urine Total Protein 11/18/16 11/19/16 11/19/16 10:48 03:30 20:41 WBC RBC 2.95 L Hgb 9.6 L Hct 29.4 L MCV 100 H MCH 33 H RDW 15.3 H Plt Count 115 L Lymph % (Auto) Lymph # Seg Neutrophils % Seg Neuts % (Manual) Lymphocytes % (Manual) Seg Neutrophils # Man Lymphocytes # (Manual) Percent Retic PT INR APTT Heparin Anti-Xa Level POC ABG pCO2 34.6 L POC ABG pO2 79 L Sodium Potassium Chloride Carbon Dioxide BUN Creatinine Glucose POC Glucose 309 H Calcium TIBC AST Total Creatine Kinase CK-MB (CK-2) CK-MB (CK-2) Rel Index C-Reactive Protein Total Protein Albumin Vitamin B12 Urine WBC (Auto) U Epithel Cells (Auto) Urine Creatinine Urine Total Protein 11/20/16 11/20/16 11/20/16 05:50 05:50 07:41 WBC RBC 3.03 L Hgb 9.8 L Hct 29.9 L MCV 99 H MCH RDW Plt Count 116 L Lymph % (Auto) Lymph # Seg Neutrophils % Seg Neuts % (Manual) 96.0 H Lymphocytes % (Manual) 2.0 L Seg Neutrophils # Man 9.7 H Lymphocytes # (Manual) 0.2 L Percent Retic PT INR APTT Heparin Anti-Xa Level POC ABG pCO2 POC ABG pO2 Sodium 132 L Potassium Chloride 95.5 L Carbon Dioxide BUN 85 H Creatinine 3.1 H Glucose 199 H POC Glucose 182 H Calcium 7.9 L TIBC AST Total Creatine Kinase CK-MB (CK-2) CK-MB (CK-2) Rel Index C-Reactive Protein Total Protein Albumin Vitamin B12 Urine WBC (Auto) U Epithel Cells (Auto) Urine Creatinine Urine Total Protein 11/20/16 11/20/16 11/20/16 12:04 21:16 21:23 WBC RBC Hgb Hct MCV MCH RDW Plt Count Lymph % (Auto) Lymph # Seg Neutrophils % Seg Neuts % (Manual) Lymphocytes % (Manual) Seg Neutrophils # Man Lymphocytes # (Manual) Percent Retic PT INR APTT Heparin Anti-Xa Level POC ABG pCO2 POC ABG pO2 Sodium 131 L Potassium Chloride 93.3 L Carbon Dioxide BUN 53 H Creatinine 2.0 H Glucose 163 H POC Glucose 179 H Calcium 8.2 L TIBC AST 42 H Total Creatine Kinase CK-MB (CK-2) CK-MB (CK-2) Rel Index C-Reactive Protein Total Protein 5.3 L Albumin 2.4 L Vitamin B12 1454 H Urine WBC (Auto) U Epithel Cells (Auto) Urine Creatinine Urine Total Protein 11/21/16 11/21/16 11/21/16 05:25 05:25 16:44 WBC RBC 2.94 L Hgb 9.5 L Hct 28.7 L MCV 98 H MCH RDW 15.3 H Plt Count 113 L Lymph % (Auto) Lymph # Seg Neutrophils % Seg Neuts % (Manual) 91.0 H Lymphocytes % (Manual) 6.0 L Seg Neutrophils # Man 9.1 H Lymphocytes # (Manual) 0.6 L Percent Retic PT INR APTT Heparin Anti-Xa Level POC ABG pCO2 POC ABG pO2 Sodium 133 L Potassium Chloride 95.6 L Carbon Dioxide BUN 67 H Creatinine 2.3 H Glucose 187 H POC Glucose 129 H Calcium 8.3 L TIBC AST Total Creatine Kinase CK-MB (CK-2) CK-MB (CK-2) Rel Index C-Reactive Protein Total Protein Albumin Vitamin B12 Urine WBC (Auto) U Epithel Cells (Auto) Urine Creatinine Urine Total Protein 11/21/16 11/22/16 11/22/16 22:24 05:13 05:13 WBC RBC 2.72 L Hgb 8.8 L Hct 26.7 L MCV 98 H MCH 33 H RDW 15.3 H Plt Count 126 L Lymph % (Auto) Lymph # Seg Neutrophils % Seg Neuts % (Manual) 90.0 H Lymphocytes % (Manual) 3.0 L Seg Neutrophils # Man 8.9 H Lymphocytes # (Manual) 0.3 L Percent Retic PT INR APTT Heparin Anti-Xa Level POC ABG pCO2 POC ABG pO2 Sodium 132 L Potassium Chloride 95.2 L Carbon Dioxide BUN 85 H Creatinine 3.1 H Glucose 184 H POC Glucose 227 H Calcium 7.7 L TIBC AST Total Creatine Kinase CK-MB (CK-2) CK-MB (CK-2) Rel Index C-Reactive Protein Total Protein Albumin Vitamin B12 Urine WBC (Auto) U Epithel Cells (Auto) Urine Creatinine Urine Total Protein Allied health notes reviewed: RT
[2016-11-23 05:38] LABS: Hematocrit 25.8 % (30.3-42.9); Hemoglobin 8.4 gm/dl (10.1-14.3); Mean Corpuscular HGB Conc 32 % (30-34); Mean Corpuscular Hemoglobin 32 pg (28-32); Mean Corpuscular Volume 99 fl (79-97); Platelet Count 135 K/mm3 (140-440); Red Blood Count 2.61 M/mm3 (3.65-5.03); Red Cell Distribution Width 15.4 % (13.2-15.2); White Blood Count 12.9 K/mm3 (4.5-11.0)
[2016-11-23 05:57] LABS: BUN/Creatinine Ratio 34.66; Calcium 8.1 mg/dL (8.4-10.2); Chloride 94.6 mmol/L (98-107); Potassium 4.4 mmol/L (3.6-5.0)
[2016-11-23 07:06] LABS: Anisocytosis 1+; Basophils % (Manual) 0 % (0.0-1.8); Blastocytes % (Manual) 0 %; Eosinophils % (Manual) 0 % (0.0-4.3)
[2016-11-23 07:07] LABS: Diff Status Complete; Hypersegmented Neutrophils Few; Hypochromasia Few; Platelet Estimate Consistent w Auto
[2016-11-23] MEDS: APRESOLINE PO SCH ×2 (08:00→21:42)
[2016-11-23] MEDS: DUONEB *Not for PRN Use IH SCH ×3 (08:06→20:25)
[2016-11-23] MEDS ORDERED: HEPARIN/NS 5000 UNIT/500ML(CATH LAB) 1,000 ML IR ONE (08:08)
[2016-11-23] MEDS ORDERED: XYLOCAINE 2% INFILTRATI ONE (08:09)
[2016-11-23] MEDS ORDERED: HEPARIN 10,000 UNITS/10 ML ONE (08:09)
[2016-11-23] MEDS ORDERED: VERSED ONE (08:09)
[2016-11-23] MEDS ORDERED: SUBLIMAZE ONE (08:10)
[2016-11-23] MEDS ORDERED: NITROGLYCERIN SYRINGE 3 ML ONE (08:11)
[2016-11-23] MEDS ORDERED: NACL 0.9% 250ML 250 ML ONE (09:01)
[2016-11-23] MEDS ORDERED: HALFPRIN EC PO ONE ×2 (09:05→09:12)
[2016-11-23] MEDS ORDERED: PLAVIX ONE (09:05)
--- NOTE | 2016-11-23 09:09 | Hem/Onc Progress Note ---
Assessment and Plan Lately it slowly improving. Continue supportive care. thrombocytopenia seems reactive. Subjective Date of service: 11/23/16 Interval history: Sleeping. Objective - Exam Narrative Exam: No active bleeding. - Constitutional Vitals: Last Vital Signs Temp 98.4 F 11/23/16 08:00 Pulse 74 11/23/16 08:16 Resp 18 11/23/16 08:16 BP 128/67 11/23/16 08:00 Pulse Ox 97 11/23/16 08:17 - Labs Lab Results: Laboratory Results - last 24 hr 11/23/16 11/23/16 11/23/16 05:15 05:15 06:40 WBC 12.9 H RBC 2.61 L Hgb 8.4 L Hct 25.8 L MCV 99 H MCH 32 MCHC 32 RDW 15.4 H Plt Count 135 L Add Manual Diff Complete Total Counted 100 Seg Neutrophils % [employer] Consult[employer] Seg Neuts % (Manual) 86.0 H Band Neutrophils % 2.0 Lymphocytes % (Manual) 9.0 L Reactive Lymphs % (Man) 0 Monocytes % (Manual) 3.0 Eosinophils % (Manual) 0 Basophils % (Manual) 0 Metamyelocytes % 0 Myelocytes % 0 Promyelocytes % 0 Blast Cells % 0 Nucleated RBC % Not Reportable Seg Neutrophils # Man 11.1 H Band Neutrophils # 0.3 Lymphocytes # (Manual) 1.2 Abs React Lymphs (Man) 0.0 Monocytes # (Manual) 0.4 Eosinophils # (Manual) 0.0 Basophils # (Manual) 0.0 Metamyelocytes # 0.0 Myelocytes # 0.0 Promyelocytes # 0.0 Blast Cells # 0.0 WBC Morphology Not Reportable Hypersegmented Neuts Few Hyposegmented Neuts Not Reportable Hypogranular Neuts Not Reportable Smudge Cells Not Reportable Toxic Granulation Not Reportable Toxic Vacuolation Not Reportable Dohle Bodies Not Reportable Pelger-Huet Anomaly Not Reportable Tamanna Rods Not Reportable Platelet Estimate Consistent w auto Clumped Platelets Not Reportable Plt Clumps, EDTA Not Reportable Large Platelets Not Reportable Giant Platelets Not Reportable Platelet Satelliting Not Reportable Plt Morphology Comment Not Reportable RBC Morphology Not Reportable Dimorphic RBCs Not Reportable Polychromasia Not Reportable Hypochromasia Few Poikilocytosis Not Reportable Anisocytosis 1+ Microcytosis Not Reportable Macrocytosis Not Reportable Spherocytes Not Reportable Pappenheimer Bodies Not Reportable Sickle Cells Not Reportable Target Cells Not Reportable Tear Drop Cells Not Reportable Ovalocytes Not Reportable Helmet Cells Not Reportable Ramos-Parlier Bodies Not Reportable Roebling Rings Not Reportable Talbott Cells Not Reportable Bite Cells Not Reportable Crenated Cell Not Reportable Elliptocytes Not Reportable Acanthocytes (Spur) Not Reportable Rouleaux Not Reportable Hemoglobin C Crystals Not Reportable Schistocytes Not Reportable Malaria parasites Not Reportable Javi Bodies Not Reportable Hem Pathologist Commnt No Sodium 133 L Potassium 4.4 Chloride 94.6 L Carbon Dioxide 21 L Anion Gap 22 BUN 104 H Creatinine 3.0 H Estimated GFR 19 BUN/Creatinine Ratio 34.66 Glucose 220 H Calcium 8.1 L Blood Type O POSITIVE Antibody Screen TNR NORM Antibody Screen Negative
[2016-11-23] MEDS: PLAVIX PO SCH (09:12)
[2016-11-23] MEDS ORDERED: NACL 0.9% 100 ML ONE (10:12)
[2016-11-23] MEDS: ANGIOMAX IV ONE ×2 (10:31→10:32)
--- NOTE | 2016-11-23 11:20 | Progress Note ---
Assessment and Plan Assessment and plan: NSTEMI. [facility] this admission reports a 80% proximal OM2, 60-70% mid LAD, severe diffuse disease of a small distal RCA with left to right collaterals. Cardiology to perform coronary intervention today NATHALIA vs CKD. Patient initiated on dialysis this admission. Currently with Wednesday, Wednesday and Wednesday schedule. Renal ultrasound showing no hydronephrosis. Valsartan and Lasix have been discontinued. Acute decompensated systolic heart failure. Continue hemodialysis as above for volume control. Cardiology following. Transthoracic echocardiogram report by Dr. Shane read as left ventricular chamber size severely dilated, global left systolic function is severely decreased, estimated ejection fraction is 10-15%, mild concentric left ventricular hypertrophy, left atrium is severely dilated, moderate to severe MR, mild to moderate TR, evidence of mild pulmonary hypertension, trivial pericardial effusion, catheters visualizing right atrium. Acute hypoxic respiratory failure. Etiology secondary to above. Improved with hemodialysis. Anemia. EGD/Flex this admission reports mild non-erosive gastritis and hemorrhoids. GI following. GI reports no contraindication to proceeding to cardiac cath/DAPT at present. GIB. As above. Continue Protonix. Thrombocytopenia. Hematology consultation. Check HIT panel. Follow-up CBC in a.m. Severe Cardiomyopathy. LVEF 10-15% on echocardiogram. Moderate to severe mitral regurgitation hx CVA Hypertension. Continue antihypertensive medications. Alzheimer's dementia. Continue Namenda. History Interval history: No new issues overnight. Hospitalist Physical - Constitutional Vitals: Temp Pulse Resp BP Pulse Ox 98.8 F 70 17 142/60 96 11/23/16 08:40 11/23/16 08:40 11/23/16 08:40 11/23/16 08:40 11/23/16 08:40 General appearance: Present: no acute distress, well-nourished - EENT Eyes: Present: PERRL, EOM intact ENT: hearing intact, clear oral mucosa, dentition normal - Neck Neck: Present: supple, normal ROM - Respiratory Respiratory effort: normal Respiratory: bilateral: CTA - Cardiovascular Rhythm: regular Heart Sounds: Present: S1 & S2. Absent: gallop, rub - Extremities Extremities: no ischemia, No edema, Full ROM - Abdominal General gastrointestinal: soft, non-tender, non-distended, normal bowel sounds - Integumentary Integumentary: Present: clear, warm, dry - Neurologic Neurologic: CNII-XII intact, moves all extremities Results - Labs CBC & Chem 7: 11/23/16 05:15 11/23/16 05:15 Labs: Laboratory Last Values WBC 12.9 K/mm3 (4.5-11.0) H 11/23/16 05:15 RBC 2.61 M/mm3 (3.65-5.03) L 11/23/16 05:15 Hgb 8.4 gm/dl (10.1-14.3) L 11/23/16 05:15 Hct 25.8 % (30.3-42.9) L 11/23/16 05:15 MCV 99 fl (79-97) H 11/23/16 05:15 MCH 32 pg (28-32) 11/23/16 05:15 MCHC 32 % (30-34) 11/23/16 05:15 RDW 15.4 % (13.2-15.2) H 11/23/16 05:15 Plt Count 135 K/mm3 (140-440) L 11/23/16 05:15 Lymph % (Auto) Work From Home 11/18/16 05:00 [place] % (Auto) Work From Home 11/18/16 05:00 Eos % (Auto) Work From Home 11/18/16 05:00 Baso % (Auto) Work From Home 11/18/16 05:00 Lymph # Work From Home 11/18/16 05:00 [place] # Work From Home 11/18/16 05:00 Eos # Work From Home 11/18/16 05:00 Baso # Work From Home 11/18/16 05:00 Add Manual Diff Complete 11/23/16 05:15 Total Counted 100 11/23/16 05:15 Seg Neutrophils % Work From Home 11/23/16 05:15 Seg Neuts % (Manual) 86.0 % (40.0-70.0) H 11/23/16 05:15 Band Neutrophils % 2.0 % 11/23/16 05:15 Lymphocytes % (Manual) 9.0 % (13.4-35.0) L 11/23/16 05:15 Reactive Lymphs % (Man) 0 % 11/23/16 05:15 Monocytes % (Manual) 3.0 % (0.0-7.3) 11/23/16 05:15 Eosinophils % (Manual) 0 % (0.0-4.3) 11/23/16 05:15 Basophils % (Manual) 0 % (0.0-1.8) 11/23/16 05:15 Metamyelocytes % 0 % 11/23/16 05:15 Myelocytes % 0 % 11/23/16 05:15 Promyelocytes % 0 % 11/23/16 05:15 Blast Cells % 0 % 11/23/16 05:15 Nucleated RBC % Not Reportable 11/23/16 05:15 Seg Neutrophils # Work From Home 11/18/16 05:00 Seg Neutrophils # Man 11.1 K/mm3 (1.8-7.7) H 11/23/16 05:15 Band Neutrophils # 0.3 K/mm3 11/23/16 05:15 Lymphocytes # (Manual) 1.2 K/mm3 (1.2-5.4) 11/23/16 05:15 Abs React Lymphs (Man) 0.0 K/mm3 11/23/16 05:15 Monocytes # (Manual) 0.4 K/mm3 (0.0-0.8) 11/23/16 05:15 Eosinophils # (Manual) 0.0 K/mm3 (0.0-0.4) 11/23/16 05:15 Basophils # (Manual) 0.0 K/mm3 (0.0-0.1) 11/23/16 05:15 Metamyelocytes # 0.0 K/mm3 11/23/16 05:15 Myelocytes # 0.0 K/mm3 11/23/16 05:15 Promyelocytes # 0.0 K/mm3 11/23/16 05:15 Blast Cells # 0.0 K/mm3 11/23/16 05:15 WBC Morphology Not Reportable 11/23/16 05:15 Hypersegmented Neuts Few 11/23/16 05:15 Hyposegmented Neuts Not Reportable 11/23/16 05:15 Hypogranular Neuts Not Reportable 11/23/16 05:15 Smudge Cells Not Reportable 11/23/16 05:15 Toxic Granulation Not Reportable 11/23/16 05:15 Toxic Vacuolation Not Reportable 11/23/16 05:15 Dohle Bodies Not Reportable 11/23/16 05:15 Pelger-Huet Anomaly Not Reportable 11/23/16 05:15 Tamanna Rods Not Reportable 11/23/16 05:15 Platelet Estimate Consistent w auto 11/23/16 05:15 Clumped Platelets Not Reportable 11/23/16 05:15 Plt Clumps, EDTA Not Reportable 11/23/16 05:15 Large Platelets Not Reportable 11/23/16 05:15 Giant Platelets Not Reportable 11/23/16 05:15 Platelet Satelliting Not Reportable 11/23/16 05:15 Plt Morphology Comment Not Reportable 11/23/16 05:15 RBC Morphology Not Reportable 11/23/16 05:15 Dimorphic RBCs Not Reportable 11/23/16 05:15 Polychromasia Not Reportable 11/23/16 05:15 Hypochromasia Few 11/23/16 05:15 Poikilocytosis Not Reportable 11/23/16 05:15 Anisocytosis 1+ 11/23/16 05:15 Microcytosis Not Reportable 11/23/16 05:15 Macrocytosis Not Reportable 11/23/16 05:15 Spherocytes Not Reportable 11/23/16 05:15 Pappenheimer Bodies Not Reportable 11/23/16 05:15 Sickle Cells Not Reportable 11/23/16 05:15 Target Cells Not Reportable 11/23/16 05:15 Tear Drop Cells Not Reportable 11/23/16 05:15 Ovalocytes Not Reportable 11/23/16 05:15 Helmet Cells Not Reportable 11/23/16 05:15 [place] Bodies Not Reportable 11/23/16 05:15 [place] Rings Not Reportable 11/23/16 05:15 [place] Cells Not Reportable 11/23/16 05:15 Bite Cells Not Reportable 11/23/16 05:15 Crenated Cell Not Reportable 11/23/16 05:15 Elliptocytes Not Reportable 11/23/16 05:15 Acanthocytes (Spur) Not Reportable 11/23/16 05:15 Rouleaux Not Reportable 11/23/16 05:15 Hemoglobin C Crystals Not Reportable 11/23/16 05:15 Schistocytes Not Reportable 11/23/16 05:15 Malaria parasites Not Reportable 11/23/16 05:15 Percent Retic 4.37 % (0.78-2.58) H 11/10/16 19:09 Javi Bodies Not Reportable 11/23/16 05:15 Hem Pathologist Commnt No 11/23/16 05:15 PT 14.0 Sec. (12.2-14.9) 11/21/16 18:25 INR 1.09 (0.87-1.13) 11/21/16 18:25 APTT 27.3 Sec. (24.2-36.6) 11/21/16 18:25 D-Dimer 1575.53 ng/mlDDU (0-234) H 11/07/16 16:35 Heparin Anti-Xa Level 0.12 U.I./ml (0.3-0.7) L 11/10/16 07:16 Heparin Anti-Xa, Unfract Negative (Negative) 11/17/16 09:17 POC ABG pH 7.413 (7.35-7.45) 11/18/16 10:48 POC ABG pCO2 34.6 (35-45) L 11/18/16 10:48 POC ABG pO2 79 (80-105) L 11/18/16 10:48 POC ABG HCO3 22.1 11/18/16 10:48 POC ABG Total CO2 23 11/18/16 10:48 POC ABG O2 Sat 96 11/18/16 10:48 POC ABG Base Excess -3 11/18/16 10:48 FiO2 21 % 11/18/16 10:48 Sodium 133 mmol/L (137-145) L 11/23/16 05:15 Potassium 4.4 mmol/L (3.6-5.0) 11/23/16 05:15 Chloride 94.6 mmol/L (98-107) L 11/23/16 05:15 Carbon Dioxide 21 mmol/L (22-30) L 11/23/16 05:15 Anion Gap 22 mmol/L 11/23/16 05:15 BUN 104 mg/dL (7-17) H 11/23/16 05:15 Creatinine 3.0 mg/dL (0.7-1.2) H 11/23/16 05:15 Estimated GFR 19 ml/min 11/23/16 05:15 BUN/Creatinine Ratio 34.66 % 11/23/16 05:15 Glucose 220 mg/dL (65-100) H 11/23/16 05:15 POC Glucose 227 (70-105) H 11/21/16 22:24 Hemoglobin A1c 4.8 % (4-6) 11/07/16 16:35 Lactic Acid 1.10 mmol/L (0.7-2.0) 11/09/16 03:19 Calcium 8.1 mg/dL (8.4-10.2) L 11/23/16 05:15 Iron 70 ug/dL (37-170) 11/10/16 18:10 TIBC 237 mcg/dL (250-450) L 11/10/16 18:10 Ferritin 211.2 ng/mL (13.0-400.0) 11/10/16 18:10 Total Bilirubin 0.60 mg/dL (0.1-1.2) 11/20/16 21:16 AST 42 units/L (5-40) H 11/20/16 21:16 ALT 30 units/L (7-56) 11/20/16 21:16 Alkaline Phosphatase 95 units/L (35-129) 11/20/16 21:16 Total Creatine Kinase 947 units/L (30-135) H 11/08/16 17:09 CK-MB (CK-2) 91.7 ng/mL (0.0-4.0) H 11/08/16 17:09 CK-MB (CK-2) Rel Index 9.6 (0-4) H 11/08/16 17:09 Troponin T 6.920 ng/mL (0.00-0.029) H* 11/07/16 18:36 C-Reactive Protein 5.80 mg/dL (0.00-1.30) H 11/08/16 17:09 NT-Pro-B Natriuret Pep 57912 pg/mL (0-900) H 11/07/16 16:35 Total Protein 5.3 g/dL (6.3-8.2) L 11/20/16 21:16 Albumin 2.4 g/dL (3.9-5) L 11/20/16 21:16 Albumin/Globulin Ratio 0.8 % 11/20/16 21:16 Triglycerides 69 mg/dL (2-149) 11/07/16 16:35 Cholesterol 129 mg/dL (50-199) 11/07/16 16:35 LDL Cholesterol Direct 56 mg/dL (50-130) 11/07/16 16:35 HDL Cholesterol 60 mg/dL (40-59) H 11/07/16 16:35 Cholesterol/HDL Ratio 2.15 % 11/07/16 16:35 Vitamin B12 1454 pg/mL (211-911) H 11/20/16 21:23 Folate 13.54 ng/mL (7.3-26.0) 11/20/16 21:24 TSH 4.120 mlU/mL (0.270-4.200) 11/09/16 15:38 Urine Color Yellow (Yellow) 11/08/16 13:56 Urine Turbidity Cloudy (Clear) 11/08/16 13:56 Urine pH 5.0 (5.0-7.0) 11/08/16 13:56 Ur Specific [place] 1.013 (1.003-1.030) 11/08/16 13:56 Urine Protein 100 mg/dl mg/dL (Negative) 11/08/16 13:56 Urine Glucose (UA) Neg mg/dL (Negative) 11/08/16 13:56 Urine Ketones Neg mg/dL (Negative) 11/08/16 13:56 Urine Blood Lg (Negative) 11/08/16 13:56 Urine Nitrite Neg (Negative) 11/08/16 13:56 Urine Bilirubin Neg (Negative) 11/08/16 13:56 Urine Urobilinogen < 2.0 mg/dL (<2.0) 11/08/16 13:56 Ur Leukocyte Esterase Mod (Negative) 11/08/16 13:56 Urine WBC (Auto) 25.0 /HPF (0.0-6.0) H 11/08/16 13:56 Urine RBC (Auto) > 182.0 /HPF (0.0-6.0) 11/08/16 13:56 U Epithel Cells (Auto) 20.0 /HPF (0-13.0) H 11/08/16 13:56 Urine WBC Clumps Few /HPF 11/08/16 13:56 Ur Transition Epith Cell 2 /HPF 11/08/16 13:56 Urine Creatinine 161.2 mg/dL (0.1-20.0) H 11/08/16 13:56 Protein/Creatinin Ratio 0.91 11/08/16 13:56 Urine Total Protein 146 mg/dL (5-11.8) H 11/08/16 13:56 Heparin-induced Plt Ab Negative (Negative) 11/17/16 09:17 UF Heparin High Dose 0 % Release 11/17/16 09:17 EREN UFH Low Dose 0.1 0 % Release 11/17/16 09:17 EREN UFH Low Dose 0.5 0 % Release 11/17/16 09:17 Hep Bs Antigen Non-reactive (Negative) 11/10/16 04:32 Hepatitis C Antibody Non-reactive (NonReactive) 11/10/16 04:32 Blood Type O POSITIVE 11/23/16 06:40 Antibody Screen TNR 11/23/16 06:40 NORM Antibody Screen Negative 11/23/16 06:40
--- NOTE | 2016-11-23 11:26 | Progress Note ---
Assessment and Plan - Patient Problems (1) NSTEMI (non-ST elevated myocardial infarction) Current Visit: Yes Status: Acute Plan to address problem: Successful 2 vessel PCI of the mid LAD and mid circumflex. Baremetal stents were used, excellent angiographic result, no complications. Angiomax-Hirudin was used for anticoagulation, ACT 263. Discontinued at end of procedure. Continue ASA and Plavix post procedure oral antiplatelet Rx. (2) Thrombocytopenia Current Visit: Yes Status: Acute Plan to address problem: Hirudin was used in place of heparin for coronary intervention. (3) Anemia Current Visit: Yes Status: Acute Plan to address problem: GI and hematology follow up. Subjective Principal diagnosis: Acute Hypoxemic Respiratory Failure Interval history: Successful 2 vessel PCI of the mid LAD and mid circumflex. Baremetal stents were used, excellent angiographic result, no complications. Angiomax-Hirudin was used for anticoagulation, ACT 263. Discontinued at end of procedure. Objective Vital Signs Temp Pulse Pulse Pulse Resp Resp Resp 11/23/16 08:40 98.8 F 70 17 11/23/16 08:17 11/23/16 08:16 74 18 11/23/16 08:06 11/23/16 08:00 98.4 F 74 75 20 18 11/23/16 03:40 98.2 F 72 18 11/22/16 23:00 98.1 F 75 20 11/22/16 22:25 80 11/22/16 22:00 89 16 11/22/16 20:09 11/22/16 20:01 87 18 11/22/16 19:10 98.0 F 80 18 11/22/16 15:54 97.6 F 65 20 11/22/16 14:58 70 16 11/22/16 14:47 66 18 11/22/16 11:38 97.6 F 67 20 BP Pulse Ox 11/23/16 08:40 142/60 96 11/23/16 08:17 97 11/23/16 08:16 11/23/16 08:06 97 11/23/16 08:00 128/67 98 11/23/16 03:40 122/62 11/22/16 23:00 115/53 98 11/22/16 22:25 120/86 11/22/16 22:00 11/22/16 20:09 93 11/22/16 20:01 11/22/16 19:10 134/69 93 11/22/16 15:54 180/78 98 11/22/16 14:58 11/22/16 14:47 11/22/16 11:38 137/65 97 - Physical Examination General: No Apparent Distress HEENT: Positive: PERRL Neck: Positive: trachea midline Cardiac: Positive: Reg Rate and Rhythm Lungs: Positive: Decreased Breath Sounds Neuro: Positive: Grossly Intact Abdomen: Positive: Soft, Active Bowel Sounds Skin: Positive: Clear Extremities: Absent: edema - Labs and Meds CBC 11/23/16 Range/Units 05:15 WBC 12.9 H (4.5-11.0) K/mm3 RBC 2.61 L (3.65-5.03) M/mm3 Hgb 8.4 L (10.1-14.3) gm/dl Hct 25.8 L (30.3-42.9) % Plt Count 135 L (140-440) K/mm3 Comprehensive Metabolic Panel 11/23/16 Range/Units 05:15 Sodium 133 L (137-145) mmol/L Potassium 4.4 (3.6-5.0) mmol/L Chloride 94.6 L (98-107) mmol/L Carbon Dioxide 21 L (22-30) mmol/L BUN 104 H (7-17) mg/dL Creatinine 3.0 H (0.7-1.2) mg/dL Glucose 220 H (65-100) mg/dL Calcium 8.1 L (8.4-10.2) mg/dL - Imaging and Cardiology EKG: report reviewed (Sinus Tach pvc's LVH 119/min Repolarization abnormalities) - Allied health notes Allied health notes reviewed: RT
[2016-11-23] MEDS: BABY ASPIRIN PO SCH (12:00)
[2016-11-23] MEDS: COREG PO SCH ×2 (12:47→21:17)
[2016-11-23] MEDS: IMDUR PO SCH (12:47)
[2016-11-23] MEDS: PROTONIX PO SCH (12:47)
[2016-11-23] MEDS: OYSCO D 500 MG-200 UNIT PO SCH (12:48)
[2016-11-23] MEDS: NAMENDA XR PO SCH (12:49)
[2016-11-23] MEDS: NORVASC PO SCH (12:49)
--- NOTE | 2016-11-23 14:18 | Progress Note ---
Assessment and Plan - Patient Problems (1) Acute kidney injury superimposed on CKD Current Visit: Yes Status: Acute Plan to address problem: noted increased urine output >1.5L/day, however worsening azotemia in between HD noted. cont intermittent HD 3 times weekly. Avoid nephrotoxins, NSAIDs, further IV contrast (2) Acute on chronic systolic (congestive) heart failure Current Visit: Yes Status: Acute Plan to address problem: Strict I/Os 2D echo showed EF of 10-15 % Cont BB, Fluid removal with HD; Will restart JEF-I/ARB once renal function in steady state/or pt require assisted HD. (3) NSTEMI (non-ST elevated myocardial infarction) Current Visit: Yes Status: Acute Plan to address problem: s/p 2 vessel PCI of the mid LAD and mid circumflex, follow cardio recs (4) Acute respiratory failure with hypoxia Current Visit: Yes Status: Acute Plan to address problem: now stable. BiPAP support as needed (5) HTN (hypertension) Current Visit: Yes Status: Chronic Qualifiers: Hypertension type: essential hypertension Qualified Code(s): I10 - Essential (primary) hypertension Plan to address problem: monitor BP on current meds Subjective Date of service: 11/23/16 Principal diagnosis: Acute Hypoxemic Respiratory Failure Interval history: pt s/p PCI this AM, no acute distress. Objective - Vital Signs Vital signs: Vital Signs - 12hr 11/23/16 11/23/16 11/23/16 03:40 08:00 08:06 Temperature 98.2 F 98.4 F Pulse Rate 72 74 Pulse Rate [ 75 Anterior Bilateral Throughout] Respiratory 18 20 Rate Respiratory 18 Rate [Anterior Bilateral Throughout] Blood Pressure 122/62 128/67 O2 Sat by Pulse 98 97 Oximetry 11/23/16 11/23/16 11/23/16 08:16 08:17 08:40 Temperature 98.8 F Pulse Rate 70 Pulse Rate [ 74 Anterior Bilateral Throughout] Respiratory 17 Rate Respiratory 18 Rate [Anterior Bilateral Throughout] Blood Pressure 142/60 O2 Sat by Pulse 97 96 Oximetry 11/23/16 13:01 Temperature 97.2 F L Pulse Rate 66 Pulse Rate [ Anterior Bilateral Throughout] Respiratory 18 Rate Respiratory Rate [Anterior Bilateral Throughout] Blood Pressure 164/81 O2 Sat by Pulse Oximetry - General Appearance General appearance: well-developed, well-nourished, appears stated age EENT: ATNC, PERRL, mucous membranes moist, other Neck: no JVD, other (neck hematoma noted ) Respiratory: Present: Clear to Ascultation Cardiology: regular, S1S2 Gastrointestinal: normal, normoactive bowel sounds Integumentary: no rash, other (no edema ) Neurologic: no focal deficit, alert and oriented x3, strength 5/5, CN 3-12 intact Psychiatric: mood/affect appropriate, cooperative - Lab 11/23/16 05:15 11/23/16 05:15 Most recent lab results Calcium 8.1 mg/dL (8.4-10.2) L 11/23/16 05:15 Urine Creatinine 161.2 mg/dL (0.1-20.0) H 11/08/16 13:56 Urine Total Protein 146 mg/dL (5-11.8) H 11/08/16 13:56
--- NOTE | 2016-11-23 18:57 | Progress Note ---
Assessment and Plan Patient sleeping at this time. On 2 litres O2.O2 saturation 97%.No acute respiratory distress. - Patient Problems (1) Acute respiratory failure with hypoxia Current Visit: Yes Status: Acute Plan to address problem: Patient is on 2 litres O2. Albuterol/atrovent aerosol treatments q 6 hours. Decrease solumedral 20 mg I/V q 12 hours. Continue S/C Heparin. Continue Protonix. ABGs on room air tomorrow. Chest xray tomorrow. (2) NSTEMI (non-ST elevated myocardial infarction) Current Visit: Yes Status: Acute Plan to address problem: Management as per cardiology (3) Thrombocytopenia Current Visit: Yes Status: Acute Plan to address problem: Platelet count dropping ltest platelet count 126,000. (4) CKD (chronic kidney disease) stage 4, GFR 15-29 ml/min Current Visit: Yes Status: Chronic Plan to address problem: Management as per nephrology. Subjective Date of service: 11/23/16 Principal diagnosis: Acute Hypoxemic Respiratory Failure Interval history: Patient sleeping at this time. On 2 litres O2.O2 saturation 97%.No acute respiratory distress. Objective Vital Signs - 12hr 11/23/16 11/23/16 11/23/16 08:00 08:06 08:16 Temperature 98.4 F Pulse Rate 74 Pulse Rate [ 75 74 Anterior Bilateral Throughout] Respiratory 20 Rate Respiratory 18 18 Rate [Anterior Bilateral Throughout] Blood Pressure 128/67 O2 Sat by Pulse 98 97 Oximetry 11/23/16 11/23/16 11/23/16 08:17 08:40 13:01 Temperature 98.8 F 97.2 F L Pulse Rate 70 66 Pulse Rate [ Anterior Bilateral Throughout] Respiratory 17 18 Rate Respiratory Rate [Anterior Bilateral Throughout] Blood Pressure 142/60 164/81 O2 Sat by Pulse 97 96 Oximetry 11/23/16 15:30 Temperature 97.5 F L Pulse Rate 74 Pulse Rate [ Anterior Bilateral Throughout] Respiratory 18 Rate Respiratory Rate [Anterior Bilateral Throughout] Blood Pressure 166/83 O2 Sat by Pulse Oximetry Constitutional: no acute distress, alert Eyes: non-icteric ENT: oropharynx moist Neck: supple, no JVD Effort: normal Ascultation: Bilateral: diminished breath sounds, rales (basilar and scant) Cardiovascular: regular rate and rhythm Gastrointestinal: normoactive bowel sounds, soft, non-tender, non-distended Integumentary: normal Extremities: no cyanosis, no edema, pulses normal, no ischemia or petechiae Neurologic: normal mental status, non-focal exam, CN II-XII normal Psychiatric: mood appropriate, affect normal CBC and BMP: 11/23/16 05:15 11/23/16 05:15 ABG, PT/INR, D-dimer: ABG POC ABG pH 7.413 (7.35-7.45) 11/18/16 10:48 POC ABG pCO2 34.6 (35-45) L 11/18/16 10:48 POC ABG pO2 79 (80-105) L 11/18/16 10:48 POC ABG HCO3 22.1 11/18/16 10:48 POC ABG Total CO2 23 11/18/16 10:48 POC ABG O2 Sat 96 11/18/16 10:48 PT/INR, D-dimer PT 14.0 Sec. (12.2-14.9) 11/21/16 18:25 INR 1.09 (0.87-1.13) 11/21/16 18:25 D-Dimer 1575.53 ng/mlDDU (0-234) H 11/07/16 16:35 Abnormal lab findings: Abnormal Labs 11/07/16 11/08/16 11/08/16 21:43 06:45 06:45 WBC RBC 2.37 L Hgb 7.6 L Hct 23.3 L D MCV 98 H MCH RDW Plt Count Lymph % (Auto) 8.0 L Lymph # 0.5 L Seg Neutrophils % 89.2 H Seg Neuts % (Manual) Lymphocytes % (Manual) Seg Neutrophils # Man Lymphocytes # (Manual) Percent Retic PT INR APTT Heparin Anti-Xa Level POC ABG pCO2 POC ABG pO2 Sodium Potassium Chloride Carbon Dioxide 17 L BUN 52 H Creatinine 3.3 H Glucose 263 H POC Glucose Calcium TIBC AST 164 H Total Creatine Kinase 1584 H CK-MB (CK-2) 268.6 H CK-MB (CK-2) Rel Index 16.9 H C-Reactive Protein Total Protein 5.6 L Albumin 2.5 L Vitamin B12 Urine WBC (Auto) U Epithel Cells (Auto) Urine Creatinine Urine Total Protein 11/08/16 11/08/16 11/08/16 06:45 12:04 12:04 WBC RBC Hgb 8.0 L Hct 23.7 L MCV MCH RDW Plt Count Lymph % (Auto) Lymph # Seg Neutrophils % Seg Neuts % (Manual) Lymphocytes % (Manual) Seg Neutrophils # Man Lymphocytes # (Manual) Percent Retic PT 16.5 H INR 1.34 H APTT 38.5 H Heparin Anti-Xa Level POC ABG pCO2 POC ABG pO2 Sodium Potassium Chloride Carbon Dioxide BUN Creatinine Glucose POC Glucose Calcium TIBC AST Total Creatine Kinase 1273 H CK-MB (CK-2) 182.7 H CK-MB (CK-2) Rel Index 14.3 H C-Reactive Protein Total Protein Albumin Vitamin B12 Urine WBC (Auto) U Epithel Cells (Auto) Urine Creatinine Urine Total Protein 11/08/16 11/08/16 11/08/16 13:56 13:56 17:09 WBC RBC Hgb Hct MCV MCH RDW Plt Count Lymph % (Auto) Lymph # Seg Neutrophils % Seg Neuts % (Manual) Lymphocytes % (Manual) Seg Neutrophils # Man Lymphocytes # (Manual) Percent Retic PT INR APTT Heparin Anti-Xa Level POC ABG pCO2 POC ABG pO2 Sodium Potassium Chloride Carbon Dioxide BUN Creatinine Glucose POC Glucose Calcium TIBC AST Total Creatine Kinase 947 H CK-MB (CK-2) 91.7 H CK-MB (CK-2) Rel Index 9.6 H C-Reactive Protein Total Protein Albumin Vitamin B12 Urine WBC (Auto) 25.0 H U Epithel Cells (Auto) 20.0 H Urine Creatinine 161.2 H Urine Total Protein 146 H 11/08/16 11/09/16 11/09/16 17:09 03:19 07:04 WBC RBC Hgb 8.6 L Hct 26.1 L MCV MCH RDW Plt Count Lymph % (Auto) Lymph # Seg Neutrophils % Seg Neuts % (Manual) Lymphocytes % (Manual) Seg Neutrophils # Man Lymphocytes # (Manual) Percent Retic PT INR APTT Heparin Anti-Xa Level POC ABG pCO2 POC ABG pO2 Sodium 135 L Potassium 5.7 H D Chloride Carbon Dioxide 15 L BUN 70 H Creatinine 5.0 H D Glucose 169 H POC Glucose Calcium 7.9 L TIBC AST Total Creatine Kinase CK-MB (CK-2) CK-MB (CK-2) Rel Index C-Reactive Protein 5.80 H Total Protein Albumin Vitamin B12 Urine WBC (Auto) U Epithel Cells (Auto) Urine Creatinine Urine Total Protein 07/17/17 07/18/17 07/18/17 21:00 04:32 07:16 WBC RBC Hgb 8.4 L Hct 25.6 L MCV MCH RDW Plt Count 111 L Lymph % (Auto) Lymph # Seg Neutrophils % Seg Neuts % (Manual) Lymphocytes % (Manual) Seg Neutrophils # Man Lymphocytes # (Manual) Percent Retic PT INR APTT Heparin Anti-Xa Level 0.91 H 0.12 L POC ABG pCO2 POC ABG pO2 Sodium Potassium Chloride Carbon Dioxide BUN Creatinine Glucose POC Glucose Calcium TIBC AST Total Creatine Kinase CK-MB (CK-2) CK-MB (CK-2) Rel Index C-Reactive Protein Total Protein Albumin Vitamin B12 Urine WBC (Auto) U Epithel Cells (Auto) Urine Creatinine Urine Total Protein 11/10/16 11/10/16 11/10/16 10:05 18:10 19:09 WBC RBC Hgb Hct MCV MCH RDW Plt Count Lymph % (Auto) Lymph # Seg Neutrophils % Seg Neuts % (Manual) Lymphocytes % (Manual) Seg Neutrophils # Man Lymphocytes # (Manual) Percent Retic 4.37 H PT INR APTT Heparin Anti-Xa Level POC ABG pCO2 POC ABG pO2 Sodium Potassium Chloride 97.2 L Carbon Dioxide BUN 62 H Creatinine 4.4 H Glucose 206 H POC Glucose Calcium 7.0 L TIBC 237 L AST Total Creatine Kinase CK-MB (CK-2) CK-MB (CK-2) Rel Index C-Reactive Protein Total Protein Albumin Vitamin B12 Urine WBC (Auto) U Epithel Cells (Auto) Urine Creatinine Urine Total Protein 11/13/16 11/13/16 11/13/16 04:47 04:47 05:48 WBC RBC 2.82 L Hgb 9.1 L Hct 27.8 L MCV 99 H MCH RDW Plt Count 89 L Lymph % (Auto) Lymph # Seg Neutrophils % Seg Neuts % (Manual) 92.0 H Lymphocytes % (Manual) 5.0 L Seg Neutrophils # Man 7.8 H Lymphocytes # (Manual) 0.4 L Percent Retic PT INR APTT Heparin Anti-Xa Level POC ABG pCO2 POC ABG pO2 Sodium Potassium Chloride 96.8 L Carbon Dioxide BUN 60 H Creatinine 3.6 H Glucose 175 H POC Glucose 174 H Calcium 7.1 L TIBC AST Total Creatine Kinase CK-MB (CK-2) CK-MB (CK-2) Rel Index C-Reactive Protein Total Protein Albumin Vitamin B12 Urine WBC (Auto) U Epithel Cells (Auto) Urine Creatinine Urine Total Protein 11/14/16 11/16/16 11/16/16 08:49 05:29 16:38 WBC RBC Hgb Hct MCV MCH RDW Plt Count Lymph % (Auto) Lymph # Seg Neutrophils % Seg Neuts % (Manual) Lymphocytes % (Manual) Seg Neutrophils # Man Lymphocytes # (Manual) Percent Retic PT INR APTT Heparin Anti-Xa Level POC ABG pCO2 POC ABG pO2 Sodium 136 L 132 L Potassium Chloride 94.4 L 90.7 L Carbon Dioxide 19 L BUN 92 H 136 H Creatinine 4.5 H 5.0 H Glucose 196 H 223 H POC Glucose 143 H Calcium 7.2 L 7.3 L TIBC AST Total Creatine Kinase CK-MB (CK-2) CK-MB (CK-2) Rel Index C-Reactive Protein Total Protein Albumin Vitamin B12 Urine WBC (Auto) U Epithel Cells (Auto) Urine Creatinine Urine Total Protein 11/17/16 11/17/16 11/17/16 05:42 05:42 21:08 WBC RBC 2.93 L Hgb 9.7 L Hct 28.8 L MCV 98 H MCH 33 H RDW 15.5 H Plt Count 105 L Lymph % (Auto) Lymph # Seg Neutrophils % Seg Neuts % (Manual) Lymphocytes % (Manual) Seg Neutrophils # Man Lymphocytes # (Manual) Percent Retic PT INR APTT Heparin Anti-Xa Level POC ABG pCO2 POC ABG pO2 Sodium 136 L Potassium Chloride 94.4 L Carbon Dioxide BUN 78 H Creatinine 3.4 H Glucose 204 H POC Glucose 190 H Calcium 7.5 L TIBC AST Total Creatine Kinase CK-MB (CK-2) CK-MB (CK-2) Rel Index C-Reactive Protein Total Protein Albumin Vitamin B12 Urine WBC (Auto) U Epithel Cells (Auto) Urine Creatinine Urine Total Protein 11/18/16 11/18/16 11/18/16 05:00 05:00 07:38 WBC 11.8 H RBC 3.01 L Hgb 9.7 L Hct MCV 101 H MCH RDW 15.5 H Plt Count 68 L Lymph % (Auto) Lymph # Seg Neutrophils % Seg Neuts % (Manual) 96.0 H Lymphocytes % (Manual) 2.0 L Seg Neutrophils # Man 11.3 H Lymphocytes # (Manual) 0.2 L Percent Retic PT INR APTT Heparin Anti-Xa Level POC ABG pCO2 POC ABG pO2 Sodium 128 L D Potassium 5.3 H Chloride 89.7 L Carbon Dioxide 19 L BUN 104 H Creatinine 4.5 H Glucose 174 H POC Glucose 172 H Calcium 7.5 L TIBC AST Total Creatine Kinase CK-MB (CK-2) CK-MB (CK-2) Rel Index C-Reactive Protein Total Protein Albumin Vitamin B12 Urine WBC (Auto) U Epithel Cells (Auto) Urine Creatinine Urine Total Protein 11/18/16 11/19/16 11/19/16 10:48 03:30 20:41 WBC RBC 2.95 L Hgb 9.6 L Hct 29.4 L MCV 100 H MCH 33 H RDW 15.3 H Plt Count 115 L Lymph % (Auto) Lymph # Seg Neutrophils % Seg Neuts % (Manual) Lymphocytes % (Manual) Seg Neutrophils # Man Lymphocytes # (Manual) Percent Retic PT INR APTT Heparin Anti-Xa Level POC ABG pCO2 34.6 L POC ABG pO2 79 L Sodium Potassium Chloride Carbon Dioxide BUN Creatinine Glucose POC Glucose 309 H Calcium TIBC AST Total Creatine Kinase CK-MB (CK-2) CK-MB (CK-2) Rel Index C-Reactive Protein Total Protein Albumin Vitamin B12 Urine WBC (Auto) U Epithel Cells (Auto) Urine Creatinine Urine Total Protein 11/20/16 11/20/16 11/20/16 05:50 05:50 07:41 WBC RBC 3.03 L Hgb 9.8 L Hct 29.9 L MCV 99 H MCH RDW Plt Count 116 L Lymph % (Auto) Lymph # Seg Neutrophils % Seg Neuts % (Manual) 96.0 H Lymphocytes % (Manual) 2.0 L Seg Neutrophils # Man 9.7 H Lymphocytes # (Manual) 0.2 L Percent Retic PT INR APTT Heparin Anti-Xa Level POC ABG pCO2 POC ABG pO2 Sodium 132 L Potassium Chloride 95.5 L Carbon Dioxide BUN 85 H Creatinine 3.1 H Glucose 199 H POC Glucose 182 H Calcium 7.9 L TIBC AST Total Creatine Kinase CK-MB (CK-2) CK-MB (CK-2) Rel Index C-Reactive Protein Total Protein Albumin Vitamin B12 Urine WBC (Auto) U Epithel Cells (Auto) Urine Creatinine Urine Total Protein 11/20/16 11/20/16 11/20/16 12:04 21:16 21:23 WBC RBC Hgb Hct MCV MCH RDW Plt Count Lymph % (Auto) Lymph # Seg Neutrophils % Seg Neuts % (Manual) Lymphocytes % (Manual) Seg Neutrophils # Man Lymphocytes # (Manual) Percent Retic PT INR APTT Heparin Anti-Xa Level POC ABG pCO2 POC ABG pO2 Sodium 131 L Potassium Chloride 93.3 L Carbon Dioxide BUN 53 H Creatinine 2.0 H Glucose 163 H POC Glucose 179 H Calcium 8.2 L TIBC AST 42 H Total Creatine Kinase CK-MB (CK-2) CK-MB (CK-2) Rel Index C-Reactive Protein Total Protein 5.3 L Albumin 2.4 L Vitamin B12 1454 H Urine WBC (Auto) U Epithel Cells (Auto) Urine Creatinine Urine Total Protein 11/21/16 11/21/16 11/21/16 05:25 05:25 16:44 WBC RBC 2.94 L Hgb 9.5 L Hct 28.7 L MCV 98 H MCH RDW 15.3 H Plt Count 113 L Lymph % (Auto) Lymph # Seg Neutrophils % Seg Neuts % (Manual) 91.0 H Lymphocytes % (Manual) 6.0 L Seg Neutrophils # Man 9.1 H Lymphocytes # (Manual) 0.6 L Percent Retic PT INR APTT Heparin Anti-Xa Level POC ABG pCO2 POC ABG pO2 Sodium 133 L Potassium Chloride 95.6 L Carbon Dioxide BUN 67 H Creatinine 2.3 H Glucose 187 H POC Glucose 129 H Calcium 8.3 L TIBC AST Total Creatine Kinase CK-MB (CK-2) CK-MB (CK-2) Rel Index C-Reactive Protein Total Protein Albumin Vitamin B12 Urine WBC (Auto) U Epithel Cells (Auto) Urine Creatinine Urine Total Protein 11/21/16 11/22/16 11/22/16 22:24 05:13 05:13 WBC RBC 2.72 L Hgb 8.8 L Hct 26.7 L MCV 98 H MCH 33 H RDW 15.3 H Plt Count 126 L Lymph % (Auto) Lymph # Seg Neutrophils % Seg Neuts % (Manual) 90.0 H Lymphocytes % (Manual) 3.0 L Seg Neutrophils # Man 8.9 H Lymphocytes # (Manual) 0.3 L Percent Retic PT INR APTT Heparin Anti-Xa Level POC ABG pCO2 POC ABG pO2 Sodium 132 L Potassium Chloride 95.2 L Carbon Dioxide BUN 85 H Creatinine 3.1 H Glucose 184 H POC Glucose 227 H Calcium 7.7 L TIBC AST Total Creatine Kinase CK-MB (CK-2) CK-MB (CK-2) Rel Index C-Reactive Protein Total Protein Albumin Vitamin B12 Urine WBC (Auto) U Epithel Cells (Auto) Urine Creatinine Urine Total Protein 11/23/16 11/23/16 11/23/16 05:15 05:15 15:53 WBC 12.9 H RBC 2.61 L Hgb 8.4 L Hct 25.8 L MCV 99 H MCH RDW 15.4 H Plt Count 135 L Lymph % (Auto) Lymph # Seg Neutrophils % Seg Neuts % (Manual) 86.0 H Lymphocytes % (Manual) 9.0 L Seg Neutrophils # Man 11.1 H Lymphocytes # (Manual) Percent Retic PT INR APTT Heparin Anti-Xa Level POC ABG pCO2 POC ABG pO2 Sodium 133 L Potassium Chloride 94.6 L Carbon Dioxide 21 L BUN 104 H Creatinine 3.0 H Glucose 220 H POC Glucose 194 H Calcium 8.1 L TIBC AST Total Creatine Kinase CK-MB (CK-2) CK-MB (CK-2) Rel Index C-Reactive Protein Total Protein Albumin Vitamin B12 Urine WBC (Auto) U Epithel Cells (Auto) Urine Creatinine Urine Total Protein Allied health notes reviewed: RT
--- NOTE | 2016-11-23 19:55 | Cardiac Catherization Report ---
PROCEDURE: 1. Two-vessel coronary angioplasty. 2. Angioplasty and stenting of the mid circumflex. 3. Angioplasty and stenting of the mid left anterior descending artery. REASON FOR PROCEDURE: The patient is a 71-year-old woman with multiple medical problems, who presented to the hospital with a non-ST elevation myocardial infarction. A cardiac catheterization last week revealed severe focal lesions of the mid LAD and mid circumflex. The patient's coronary intervention was deferred due to the finding of persistent anemia, and thrombocytopenia. The patient has undergone gastrointestinal evaluation as well as hematological evaluation. Both services have determined that it is safe to proceed with 2-vessel coronary intervention and the attendant anticoagulation and antiplatelet therapy. DESCRIPTION OF PROCEDURE: The patient was prepped and draped in a sterile fashion. Extensive discussion of risks and benefits were done with the patient's daughter and the patient's son-in-law, who gave consent. The left femoral artery was entered using the Seldinger technique followed by placement of a 6-Lebanese sheath. We selected a number 3.5 XB guiding catheter and advanced to the left coronary ostium. Preintervention angiograms were taken. We advanced a 0.014 inch Entry Processor 50 guidewire into the circumflex obtuse marginal branch. Following wire placement, in a primary stenting maneuver, a 2.5 x 12 mm bare metal stent was deployed across the lesional segment of the mid circumflex. The stent was inflated to optimal pressures. Following stenting, there was an excellent angiographic result at the circumflex and zero residual stenosis. We then turned our attention to the LAD. The Entry Processor 50 guidewire was withdrawn from the circumflex and redirected into the LAD. Successful wire placement across the lesional segment of the LAD. A 3.0 x 8 mm bare-metal stent was then deployed across the lesional segment, and inflated to optimal pressures. After stent placement across the lesion, there was a concern regarding a small proximal stent border dissection an additional atheroma at the proximal border of the first stent. This prompted the deployment of another 3.0 x 8 mm stent with an excellent angiographic result in the mid LAD, 0 residual stenosis and ARLEY-3 flow. The patient tolerated the procedure well and there were no complications. Anticoagulation given during the procedure was Angiomax hirudin, and the post-procedure ACT was 263. No additional anticoagulation was given. The catheters and the sheaths were removed, hemostasis over the left femoral artery using an Angio-Seal device. The patient was returned to the postprocedure unit in stable condition. There were no complications. CONCLUSION: 1. Two-vessel coronary artery disease. 2. Successful angioplasty and stenting of the mid circumflex. 3. Successful second vessel angioplasty and stenting of the mid LAD. 4. Bare metal stents were used for both lesions, in recognition of the patient's long-term risk for antiplatelet therapy in the setting of chronic anemia and thrombocytopenia. JOB# [id number] CA/NTS
[2016-11-23] MEDS: SENOKOT S PO SCH (21:16)
[2016-11-24 06:31] LABS: Creatine Kinase MB 4.9 ng/mL (0.0-4.0)
[2016-11-24 06:32] LABS: Calcium 7.6 mg/dL (8.4-10.2); Chloride 93.9 mmol/L (98-107); Potassium 4.6 mmol/L (3.6-5.0)
[2016-11-24 06:37] LABS: Hematocrit 25.7 % (30.3-42.9); Hemoglobin 8.5 gm/dl (10.1-14.3); Mean Corpuscular HGB Conc 33 % (30-34); Mean Corpuscular Hemoglobin 32 pg (28-32); Mean Corpuscular Volume 97 fl (79-97); Platelet Count 139 K/mm3 (140-440); Red Blood Count 2.63 M/mm3 (3.65-5.03); Red Cell Distribution Width 15.3 % (13.2-15.2); White Blood Count 10.8 K/mm3 (4.5-11.0)
[2016-11-24] MEDS: APRESOLINE PO SCH ×4 (07:17→21:34)
[2016-11-24] MEDS: DUONEB *Not for PRN Use IH SCH ×3 (08:42→20:02)
[2016-11-24 09:00] LABS: Blastocytes % (Manual) 0 %; Eosinophils % (Manual) 0 % (0.0-4.3)
[2016-11-24 09:01] LABS: Anisocytosis 1+; Diff Status Complete; Hypochromasia Few; Platelet Estimate Consistent w Auto
--- NOTE | 2016-11-24 10:48 | Progress Note ---
Assessment and Plan - Patient Problems (1) Acute kidney injury superimposed on CKD Current Visit: Yes Status: Acute Plan to address problem: worsening azotemia in between HD noted. HD was not performed yesterday due to cardiac cath, will arrange for this AM for worsening azotemia and metabolic acidosis. cont supportive care for NATHALIA Avoid nephrotoxins, NSAIDs, further IV contrast (2) Acute on chronic systolic (congestive) heart failure Current Visit: Yes Status: Acute Plan to address problem: Strict I/Os 2D echo showed EF of 10-15 % Cont BB, Fluid removal with HD; Will restart JEF-I/ARB once renal function in steady state/or pt requires correction HD. (3) NSTEMI (non-ST elevated myocardial infarction) Current Visit: Yes Status: Acute Plan to address problem: s/p 2 vessel PCI of the mid LAD and mid circumflex, follow cardio recs (4) Acute respiratory failure with hypoxia Current Visit: Yes Status: Acute Plan to address problem: now stable. BiPAP support as needed (5) HTN (hypertension) Current Visit: Yes Status: Chronic Qualifiers: Hypertension type: essential hypertension Qualified Code(s): I10 - Essential (primary) hypertension Plan to address problem: monitor BP on current meds Subjective Date of service: 11/24/16 Principal diagnosis: Acute Hypoxemic Respiratory Failure Interval history: pt awake, alert, no acute distress. Objective - Vital Signs Vital signs: Vital Signs - 12hr 11/24/16 11/24/16 11/24/16 00:43 05:41 07:45 Temperature 98.6 F 98.5 F 98.0 F Pulse Rate 72 68 72 Pulse Rate [ Anterior Bilateral Throughout] Respiratory 20 21 18 Rate Respiratory Rate [Anterior Bilateral Throughout] Blood Pressure 110/53 134/63 126/59 O2 Sat by Pulse 95 95 95 Oximetry 11/24/16 11/24/16 11/24/16 08:45 08:55 09:26 Temperature Pulse Rate Pulse Rate [ 68 70 Anterior Bilateral Throughout] Respiratory Rate Respiratory 18 20 Rate [Anterior Bilateral Throughout] Blood Pressure O2 Sat by Pulse 96 Oximetry - General Appearance General appearance: well-developed, well-nourished, appears stated age EENT: ATNC, PERRL, mucous membranes moist Neck: no JVD Respiratory: Present: Clear to Ascultation Cardiology: regular, S1S2 Gastrointestinal: normoactive bowel sounds Integumentary: no rash, other (no edema ) Neurologic: no focal deficit, alert and oriented x3, strength 5/5, CN 3-12 intact Psychiatric: mood/affect appropriate, cooperative - Lab 11/24/16 05:15 11/24/16 05:15 Most recent lab results Calcium 7.6 mg/dL (8.4-10.2) L 11/24/16 05:15 Urine Creatinine 161.2 mg/dL (0.1-20.0) H 11/08/16 13:56 Urine Total Protein 146 mg/dL (5-11.8) H 11/08/16 13:56
[2016-11-24 11:46] LABS: ISTAT Base Excess -3; ISTAT DEVICE 0; ISTAT HCO3 21.7; ISTAT PCO2 32.2 (35-45); ISTAT PH 7.435 (7.35-7.45); ISTAT PO2 94 (80-105); ISTAT SO2 98; ISTAT TCO2 23
--- NOTE | 2016-11-24 13:44 | Progress Note ---
Assessment and Plan Renal failure initiated on dialysis this admission Acute systolic heart failure Anemia EGD/Flex this admission reports mild non-erosive gastritis and hemorrhoids. Thrombocytopenia NSTEMI s/p PCI of the mid LAD and mid circumflex using baremetal stents. on plavix and aspirin Severe Cardiomyopathy LVEF 10-15% on echocardiogram Moderate to severe mitral regurgitation Prior CVA Hypertension Recommendation: Continue medical therapy for her coronary artery disease and cardiomyopathy. Subjective Date of service: 11/24/16 Principal diagnosis: Acute Hypoxemic Respiratory Failure Interval history: No cardiac events reported overnight. Objective Vital Signs Temp Pulse Pulse Resp Resp BP Pulse Ox 11/24/16 13:30 70 122/50 11/24/16 13:15 71 128/51 11/24/16 13:00 62 126/52 11/24/16 12:45 60 123/62 11/24/16 12:30 66 126/58 11/24/16 12:15 64 91/42 11/24/16 12:07 62 108/50 11/24/16 11:45 70 100/60 11/24/16 11:30 70 107/60 11/24/16 11:15 68 114/62 11/24/16 11:00 70 113/64 11/24/16 10:45 74 109/60 11/24/16 10:30 74 121/63 11/24/16 10:20 98.3 F 74 16 121/63 11/24/16 09:26 96 11/24/16 08:55 70 20 11/24/16 08:45 68 18 11/24/16 07:45 98.0 F 72 18 126/59 95 11/24/16 05:41 98.5 F 68 21 134/63 95 11/24/16 00:43 98.6 F 72 20 110/53 95 11/23/16 21:42 82 171/68 11/23/16 21:17 82 171/68 11/23/16 20:40 80 20 11/23/16 20:27 78 20 97 11/23/16 19:24 97.6 F 82 20 171/68 97 11/23/16 15:30 97.5 F L 74 18 166/83 - Labs and Meds Cardiac Enzymes 11/24/16 Range/Units 05:15 CK-MB (CK-2) 4.9 H (0.0-4.0) ng/mL CBC 08/01/17 Range/Units 05:15 WBC 10.8 (4.5-11.0) K/mm3 RBC 2.63 L (3.65-5.03) M/mm3 Hgb 8.5 L (10.1-14.3) gm/dl Hct 25.7 L (30.3-42.9) % Plt Count 139 L (140-440) K/mm3 Comprehensive Metabolic Panel 11/24/16 Range/Units 05:15 Sodium 128 L (137-145) mmol/L Potassium 4.6 (3.6-5.0) mmol/L Chloride 93.9 L (98-107) mmol/L Carbon Dioxide 18 L (22-30) mmol/L BUN 99 H (7-17) mg/dL Creatinine 3.3 H (0.7-1.2) mg/dL Glucose 157 H (65-100) mg/dL Calcium 7.6 L (8.4-10.2) mg/dL - Imaging and Cardiology EKG: report reviewed (Sinus Tach pvc's LVH 119/min Repolarization abnormalities) - Allied health notes Allied health notes reviewed: RT
[2016-11-24] MEDS: HEPARIN IV PRN (14:46)
[2016-11-24] MEDS: BABY ASPIRIN PO SCH (16:09)
[2016-11-24] MEDS: NAMENDA XR PO SCH (16:09)
[2016-11-24] MEDS: IMDUR PO SCH (16:09)
[2016-11-24] MEDS: COREG PO SCH ×2 (16:09→21:35)
[2016-11-24] MEDS: PLAVIX PO SCH (16:10)
[2016-11-24] MEDS: PROTONIX PO SCH (16:10)
[2016-11-24] MEDS: NORVASC PO SCH (16:10)
[2016-11-24] MEDS: OYSCO D 500 MG-200 UNIT PO SCH (16:10)
--- NOTE | 2016-11-24 16:11 | Progress Note ---
Assessment and Plan Assessment and plan: NSTEMI -[facility] this admission reports a 80% proximal OM2, 60-70% mid LAD, severe diffuse disease of a small distal RCA with left to right collaterals. -Status post PCI of the mid LAD and mid circumflex using a bare-metal stents -Continue with Plavix and aspirin NATHALIA vs CKD - Patient is on hemodialysis currently and scheduled to be continued Wednesday as outpatient Acute decompensated systolic heart failure. Continue hemodialysis as above for volume control. Cardiology following. Transthoracic echocardiogram report by Dr. Shane read as left ventricular chamber size severely dilated, global left systolic function is severely decreased, estimated ejection fraction is 10-15%, mild concentric left ventricular hypertrophy, left atrium is severely dilated, moderate to severe MR, mild to moderate TR, evidence of mild pulmonary hypertension, trivial pericardial effusion, catheters visualizing right atrium. Acute hypoxic respiratory failure. Etiology secondary to above. Improved with hemodialysis. Anemia. EGD/Flex this admission reports mild non-erosive gastritis and hemorrhoids. GI following. GI reports no contraindication to proceeding to cardiac cath/DAPT at present. GIB. As above. Continue Protonix. Thrombocytopenia. Hematology consultation. Stable currently. Severe Cardiomyopathy. LVEF 10-15% on echocardiogram. Moderate to severe mitral regurgitation hx CVA Hypertension. Continue antihypertensive medications. Alzheimer's dementia. Continue Namenda. History Interval history: Patient was seen and evaluated this morning, no new complaints. No chest pain. Hospitalist Physical - Physical exam Narrative exam: Not in cardiopulmonary distress. The patient appeared well nourished and normally developed. Vital signs as documented. Head exam is unremarkable. No scleral icterus . Neck is without jugular venous distension, thyromegaly, or carotid bruits. Lungs are clear to auscultation. Cardiac exam reveals regular rate and Rhythm. Abdominal exam reveals normal bowel sounds, no masses, no organomegaly and no aortic enlargement. Extremities are nonedematous and both femoral and pedal pulses are normal. 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 No focal weakness. - Constitutional Vitals: Temp Pulse Resp BP Pulse Ox 98.3 F 74 18 145/71 96 11/24/16 13:53 11/24/16 15:05 11/24/16 15:05 11/24/16 13:53 11/24/16 09:26 General appearance: Present: no acute distress, well-nourished Results - Labs CBC & Chem 7: 11/24/16 05:15 11/24/16 05:15 Labs: Laboratory Last Values WBC 10.8 K/mm3 (4.5-11.0) 11/24/16 05:15 RBC 2.63 M/mm3 (3.65-5.03) L 11/24/16 05:15 Hgb 8.5 gm/dl (10.1-14.3) L 11/24/16 05:15 Hct 25.7 % (30.3-42.9) L 11/24/16 05:15 MCV 97 fl (79-97) 11/24/16 05:15 MCH 32 pg (28-32) 11/24/16 05:15 MCHC 33 % (30-34) 11/24/16 05:15 RDW 15.3 % (13.2-15.2) H 11/24/16 05:15 Plt Count 139 K/mm3 (140-440) L 11/24/16 05:15 Lymph % (Auto) [employer] 11/18/16 05:00 [place] % (Auto) [employer] 11/18/16 05:00 Eos % (Auto) [employer] 11/18/16 05:00 Baso % (Auto) [employer] 11/18/16 05:00 Lymph # [employer] 11/18/16 05:00 [place] # [employer] 11/18/16 05:00 Eos # [employer] 11/18/16 05:00 Baso # [employer] 11/18/16 05:00 Add Manual Diff Complete 11/24/16 05:15 Total Counted 100 11/24/16 05:15 Seg Neutrophils % [employer] 11/24/16 05:15 Seg Neuts % (Manual) 86.0 % (40.0-70.0) H 11/23/16 05:15 Band Neutrophils % 0 % 11/24/16 05:15 Lymphocytes % (Manual) 1.0 % (13.4-35.0) L 11/24/16 05:15 Reactive Lymphs % (Man) 0 % 11/24/16 05:15 Monocytes % (Manual) 1.0 % (0.0-7.3) 11/24/16 05:15 Eosinophils % (Manual) 0 % (0.0-4.3) 11/24/16 05:15 Basophils % (Manual) 0 % (0.0-1.8) 11/23/16 05:15 Metamyelocytes % 0 % 11/24/16 05:15 Myelocytes % 0 % 11/24/16 05:15 Promyelocytes % 0 % 11/24/16 05:15 Blast Cells % 0 % 11/24/16 05:15 Nucleated RBC % Not Reportable 11/24/16 05:15 Seg Neutrophils # [employer] 11/18/16 05:00 Seg Neutrophils # Man 10.6 K/mm3 (1.8-7.7) H 11/24/16 05:15 Band Neutrophils # 0.0 K/mm3 11/24/16 05:15 Lymphocytes # (Manual) 0.1 K/mm3 (1.2-5.4) L 11/24/16 05:15 Abs React Lymphs (Man) 0.0 K/mm3 11/24/16 05:15 Monocytes # (Manual) 0.1 K/mm3 (0.0-0.8) 11/24/16 05:15 Eosinophils # (Manual) 0.0 K/mm3 (0.0-0.4) 11/24/16 05:15 Basophils # (Manual) 0.0 K/mm3 (0.0-0.1) 11/24/16 05:15 Metamyelocytes # 0.0 K/mm3 11/24/16 05:15 Myelocytes # 0.0 K/mm3 11/24/16 05:15 Promyelocytes # 0.0 K/mm3 11/24/16 05:15 Blast Cells # 0.0 K/mm3 11/24/16 05:15 WBC Morphology Not Reportable 11/24/16 05:15 Hypersegmented Neuts Not Reportable 11/24/16 05:15 Hyposegmented Neuts Not Reportable 11/24/16 05:15 Hypogranular Neuts Not Reportable 11/24/16 05:15 Smudge Cells Not Reportable 11/24/16 05:15 Toxic Granulation Not Reportable 11/24/16 05:15 Toxic Vacuolation Not Reportable 11/24/16 05:15 Dohle Bodies Not Reportable 11/24/16 05:15 Pelger-Huet Anomaly Not Reportable 11/24/16 05:15 Tamanna Rods Not Reportable 11/24/16 05:15 Platelet Estimate Consistent w auto 11/24/16 05:15 Clumped Platelets Not Reportable 11/24/16 05:15 Plt Clumps, EDTA Not Reportable 11/24/16 05:15 Large Platelets Not Reportable 11/24/16 05:15 Giant Platelets Not Reportable 11/24/16 05:15 Platelet Satelliting Not Reportable 11/24/16 05:15 Plt Morphology Comment Not Reportable 11/24/16 05:15 RBC Morphology Not Reportable 11/24/16 05:15 Dimorphic RBCs Not Reportable 11/24/16 05:15 Polychromasia Not Reportable 11/24/16 05:15 Hypochromasia Few 11/24/16 05:15 Poikilocytosis Not Reportable 11/24/16 05:15 Anisocytosis 1+ 11/24/16 05:15 Microcytosis Not Reportable 11/24/16 05:15 Macrocytosis Not Reportable 11/24/16 05:15 Spherocytes Not Reportable 11/24/16 05:15 Pappenheimer Bodies Not Reportable 11/24/16 05:15 Sickle Cells Not Reportable 11/24/16 05:15 Target Cells Not Reportable 11/24/16 05:15 Tear Drop Cells Not Reportable 11/24/16 05:15 Ovalocytes Not Reportable 11/24/16 05:15 Helmet Cells Not Reportable 11/24/16 05:15 [place] Bodies Not Reportable 11/24/16 05:15 [place] Rings Not Reportable 11/24/16 05:15 Renny Cells Not Reportable 11/24/16 05:15 Bite Cells Not Reportable 11/24/16 05:15 Crenated Cell Not Reportable 11/24/16 05:15 Elliptocytes Not Reportable 11/24/16 05:15 Acanthocytes (Spur) Not Reportable 11/24/16 05:15 Rouleaux Not Reportable 11/24/16 05:15 Hemoglobin C Crystals Not Reportable 11/24/16 05:15 Schistocytes Not Reportable 11/24/16 05:15 Malaria parasites Not Reportable 11/24/16 05:15 Percent Retic 4.37 % (0.78-2.58) H 11/10/16 19:09 Javi Bodies Not Reportable 11/24/16 05:15 Hem Pathologist Commnt No 11/24/16 05:15 PT 14.0 Sec. (12.2-14.9) 11/21/16 18:25 INR 1.09 (0.87-1.13) 11/21/16 18:25 APTT 27.3 Sec. (24.2-36.6) 11/21/16 18:25 Activated Clotting Time 263 (74-137) H 11/23/16 11:13 D-Dimer 1575.53 ng/mlDDU (0-234) H 11/07/16 16:35 Heparin Anti-Xa Level 0.12 U.I./ml (0.3-0.7) L 11/10/16 07:16 Heparin Anti-Xa, Unfract Negative (Negative) 11/17/16 09:17 POC ABG pH 7.435 (7.35-7.45) 11/24/16 09:24 POC ABG pCO2 32.2 (35-45) L 11/24/16 09:24 POC ABG pO2 94 (80-105) 11/24/16 09:24 POC ABG HCO3 21.7 11/24/16 09:24 POC ABG Total CO2 23 11/24/16 09:24 POC ABG O2 Sat 98 11/24/16 09:24 POC ABG Base Excess -3 11/24/16 09:24 FiO2 21 % 11/24/16 09:24 Sodium 128 mmol/L (137-145) L 11/24/16 05:15 Potassium 4.6 mmol/L (3.6-5.0) 11/24/16 05:15 Chloride 93.9 mmol/L (98-107) L 11/24/16 05:15 Carbon Dioxide 18 mmol/L (22-30) L 11/24/16 05:15 Anion Gap 21 mmol/L 11/24/16 05:15 BUN 99 mg/dL (7-17) H 11/24/16 05:15 Creatinine 3.3 mg/dL (0.7-1.2) H 11/24/16 05:15 Estimated GFR 17 ml/min 11/24/16 05:15 BUN/Creatinine Ratio 30.00 % 11/24/16 05:15 Glucose 157 mg/dL (65-100) H 11/24/16 05:15 POC Glucose 181 (70-105) H 11/24/16 07:51 Hemoglobin A1c 4.8 % (4-6) 11/07/16 16:35 Lactic Acid 1.10 mmol/L (0.7-2.0) 11/09/16 03:19 Calcium 7.6 mg/dL (8.4-10.2) L 11/24/16 05:15 Iron 70 ug/dL (37-170) 11/10/16 18:10 TIBC 237 mcg/dL (250-450) L 11/10/16 18:10 Ferritin 211.2 ng/mL (13.0-400.0) 11/10/16 18:10 Total Bilirubin 0.60 mg/dL (0.1-1.2) 11/20/16 21:16 AST 42 units/L (5-40) H 11/20/16 21:16 ALT 30 units/L (7-56) 11/20/16 21:16 Alkaline Phosphatase 95 units/L (35-129) 11/20/16 21:16 Total Creatine Kinase 65 units/L (30-135) 11/24/16 05:15 CK-MB (CK-2) 4.9 ng/mL (0.0-4.0) H 11/24/16 05:15 CK-MB (CK-2) Rel Index 7.5 (0-4) H 11/24/16 05:15 Troponin T 2.670 ng/mL (0.00-0.029) H* 11/24/16 05:15 C-Reactive Protein 5.80 mg/dL (0.00-1.30) H 11/08/16 17:09 NT-Pro-B Natriuret Pep 77942 pg/mL (0-900) H 11/07/16 16:35 Total Protein 5.3 g/dL (6.3-8.2) L 11/20/16 21:16 Albumin 2.4 g/dL (3.9-5) L 11/20/16 21:16 Albumin/Globulin Ratio 0.8 % 11/20/16 21:16 Triglycerides 69 mg/dL (2-149) 11/07/16 16:35 Cholesterol 129 mg/dL (50-199) 11/07/16 16:35 LDL Cholesterol Direct 56 mg/dL (50-130) 11/07/16 16:35 HDL Cholesterol 60 mg/dL (40-59) H 11/07/16 16:35 Cholesterol/HDL Ratio 2.15 % 11/07/16 16:35 Vitamin B12 1454 pg/mL (211-911) H 11/20/16 21:23 Folate 13.54 ng/mL (7.3-26.0) 11/20/16 21:24 TSH 4.120 mlU/mL (0.270-4.200) 11/09/16 15:38 Urine Color Yellow (Yellow) 11/08/16 13:56 Urine Turbidity Cloudy (Clear) 11/08/16 13:56 Urine pH 5.0 (5.0-7.0) 11/08/16 13:56 Ur Specific [place] 1.013 (1.003-1.030) 11/08/16 13:56 Urine Protein 100 mg/dl mg/dL (Negative) 11/08/16 13:56 Urine Glucose (UA) Neg mg/dL (Negative) 11/08/16 13:56 Urine Ketones Neg mg/dL (Negative) 11/08/16 13:56 Urine Blood Lg (Negative) 11/08/16 13:56 Urine Nitrite Neg (Negative) 11/08/16 13:56 Urine Bilirubin Neg (Negative) 11/08/16 13:56 Urine Urobilinogen < 2.0 mg/dL (<2.0) 11/08/16 13:56 Ur Leukocyte Esterase Mod (Negative) 11/08/16 13:56 Urine WBC (Auto) 25.0 /HPF (0.0-6.0) H 11/08/16 13:56 Urine RBC (Auto) > 182.0 /HPF (0.0-6.0) 11/08/16 13:56 U Epithel Cells (Auto) 20.0 /HPF (0-13.0) H 11/08/16 13:56 Urine WBC Clumps Few /HPF 11/08/16 13:56 Ur Transition Epith Cell 2 /HPF 11/08/16 13:56 Urine Creatinine 161.2 mg/dL (0.1-20.0) H 11/08/16 13:56 Protein/Creatinin Ratio 0.91 11/08/16 13:56 Urine Total Protein 146 mg/dL (5-11.8) H 11/08/16 13:56 Heparin-induced Plt Ab Negative (Negative) 11/17/16 09:17 UF Heparin High Dose 0 % Release 11/17/16 09:17 EREN UFH Low Dose 0.1 0 % Release 11/17/16 09:17 EREN UFH Low Dose 0.5 0 % Release 11/17/16 09:17 Hep Bs Antigen Non-reactive (Negative) 11/10/16 04:32 Hepatitis C Antibody Non-reactive (NonReactive) 11/10/16 04:32 Blood Type O POSITIVE 11/23/16 06:40 Antibody Screen TNR 11/23/16 06:40 NORM Antibody Screen Negative 11/23/16 06:40
--- NOTE | 2016-11-24 19:37 | Progress Note ---
Assessment and Plan Patient awake at this time. On 2 litres O2.O2 saturation 95%.No acute respiratory distress. Patients ABGs reported PO2 94 on room air. Chest xray still pending. - Patient Problems (1) Acute respiratory failure with hypoxia Current Visit: Yes Status: Acute Plan to address problem: Patient is on 2 litres O2. Albuterol/atrovent aerosol treatments q 6 hours. Decrease solumedral 20 mg I/V q 12 hours. Continue S/C Heparin. Continue Protonix. Chest xray tomorrow. (2) NSTEMI (non-ST elevated myocardial infarction) Current Visit: Yes Status: Acute Plan to address problem: Management as per cardiology (3) Thrombocytopenia Current Visit: Yes Status: Acute Plan to address problem: Platelet count dropping ltest platelet count 139,000. (4) CKD (chronic kidney disease) stage 4, GFR 15-29 ml/min Current Visit: Yes Status: Chronic Plan to address problem: Management as per nephrology. Subjective Date of service: 11/24/16 Principal diagnosis: Acute Hypoxemic Respiratory Failure Interval history: Patient awake at this time. On 2 litres O2.O2 saturation 95%.No acute respiratory distress. Patients ABGs reported PO2 94 on room air. Chest xray still pending. Objective Vital Signs - 12hr 11/24/16 11/24/16 11/24/16 07:45 08:45 08:55 Temperature 98.0 F Pulse Rate 72 Pulse Rate [ 68 70 Anterior Bilateral Throughout] Pulse Rate [ Right Radial] Respiratory 18 Rate Respiratory 18 20 Rate [Anterior Bilateral Throughout] Respiratory Rate [denies pain] Blood Pressure 126/59 O2 Sat by Pulse 95 Oximetry 11/24/16 11/24/16 11/24/16 09:26 10:00 10:20 Temperature 98.3 F Pulse Rate 68 74 Pulse Rate [ Anterior Bilateral Throughout] Pulse Rate [ 67 Right Radial] Respiratory 20 16 Rate Respiratory Rate [Anterior Bilateral Throughout] Respiratory 18 Rate [denies pain] Blood Pressure 121/63 O2 Sat by Pulse 96 98 Oximetry 11/24/16 11/24/16 11/24/16 10:30 10:45 11:00 Temperature Pulse Rate 74 74 70 Pulse Rate [ Anterior Bilateral Throughout] Pulse Rate [ Right Radial] Respiratory Rate Respiratory Rate [Anterior Bilateral Throughout] Respiratory Rate [denies pain] Blood Pressure 121/63 109/60 113/64 O2 Sat by Pulse Oximetry 11/24/16 11/24/16 11/24/16 11:15 11:30 11:45 Temperature Pulse Rate 68 70 70 Pulse Rate [ Anterior Bilateral Throughout] Pulse Rate [ Right Radial] Respiratory Rate Respiratory Rate [Anterior Bilateral Throughout] Respiratory Rate [denies pain] Blood Pressure 114/62 107/60 100/60 O2 Sat by Pulse Oximetry 11/24/16 11/24/16 11/24/16 12:07 12:15 12:30 Temperature Pulse Rate 62 64 66 Pulse Rate [ Anterior Bilateral Throughout] Pulse Rate [ Right Radial] Respiratory Rate Respiratory Rate [Anterior Bilateral Throughout] Respiratory Rate [denies pain] Blood Pressure 108/50 91/42 126/58 O2 Sat by Pulse Oximetry 11/24/16 11/24/16 11/24/16 12:45 13:00 13:15 Temperature Pulse Rate 60 62 71 Pulse Rate [ Anterior Bilateral Throughout] Pulse Rate [ Right Radial] Respiratory Rate Respiratory Rate [Anterior Bilateral Throughout] Respiratory Rate [denies pain] Blood Pressure 123/62 126/52 128/51 O2 Sat by Pulse Oximetry 11/24/16 11/24/16 11/24/16 13:30 13:53 14:45 Temperature 98.3 F Pulse Rate 70 61 Pulse Rate [ 72 Anterior Bilateral Throughout] Pulse Rate [ Right Radial] Respiratory 16 Rate Respiratory 18 Rate [Anterior Bilateral Throughout] Respiratory Rate [denies pain] Blood Pressure 122/50 145/71 O2 Sat by Pulse Oximetry 11/24/16 15:05 Temperature Pulse Rate Pulse Rate [ 74 Anterior Bilateral Throughout] Pulse Rate [ Right Radial] Respiratory Rate Respiratory 18 Rate [Anterior Bilateral Throughout] Respiratory Rate [denies pain] Blood Pressure O2 Sat by Pulse Oximetry Constitutional: no acute distress, alert Eyes: non-icteric ENT: oropharynx moist Neck: supple, no JVD Effort: normal Ascultation: Bilateral: diminished breath sounds, rales (basilar and scant) Cardiovascular: regular rate and rhythm Gastrointestinal: normoactive bowel sounds, soft, non-tender, non-distended Integumentary: normal Extremities: no cyanosis, no edema, pulses normal, no ischemia or petechiae Neurologic: normal mental status, non-focal exam, CN II-XII normal Psychiatric: mood appropriate, affect normal CBC and BMP: 11/24/16 05:15 11/24/16 05:15 ABG, PT/INR, D-dimer: ABG POC ABG pH 7.435 (7.35-7.45) 11/24/16 09:24 POC ABG pCO2 32.2 (35-45) L 11/24/16 09:24 POC ABG pO2 94 (80-105) 11/24/16 09:24 POC ABG HCO3 21.7 11/24/16 09:24 POC ABG Total CO2 23 11/24/16 09:24 POC ABG O2 Sat 98 11/24/16 09:24 PT/INR, D-dimer PT 14.0 Sec. (12.2-14.9) 11/21/16 18:25 INR 1.09 (0.87-1.13) 11/21/16 18:25 D-Dimer 1575.53 ng/mlDDU (0-234) H 11/07/16 16:35 Abnormal lab findings: Abnormal Labs 11/07/16 11/08/16 11/08/16 21:43 06:45 06:45 WBC RBC 2.37 L Hgb 7.6 L Hct 23.3 L D MCV 98 H MCH RDW Plt Count Lymph % (Auto) 8.0 L Lymph # 0.5 L Seg Neutrophils % 89.2 H Seg Neuts % (Manual) Lymphocytes % (Manual) Seg Neutrophils # Man Lymphocytes # (Manual) Percent Retic PT INR APTT Activated Clotting Time Heparin Anti-Xa Level POC ABG pCO2 POC ABG pO2 Sodium Potassium Chloride Carbon Dioxide 17 L BUN 52 H Creatinine 3.3 H Glucose 263 H POC Glucose Calcium TIBC AST 164 H Total Creatine Kinase 1584 H CK-MB (CK-2) 268.6 H CK-MB (CK-2) Rel Index 16.9 H Troponin T C-Reactive Protein Total Protein 5.6 L Albumin 2.5 L Vitamin B12 Urine WBC (Auto) U Epithel Cells (Auto) Urine Creatinine Urine Total Protein 11/08/16 11/08/16 11/08/16 06:45 12:04 12:04 WBC RBC Hgb 8.0 L Hct 23.7 L MCV MCH RDW Plt Count Lymph % (Auto) Lymph # Seg Neutrophils % Seg Neuts % (Manual) Lymphocytes % (Manual) Seg Neutrophils # Man Lymphocytes # (Manual) Percent Retic PT 16.5 H INR 1.34 H APTT 38.5 H Activated Clotting Time Heparin Anti-Xa Level POC ABG pCO2 POC ABG pO2 Sodium Potassium Chloride Carbon Dioxide BUN Creatinine Glucose POC Glucose Calcium TIBC AST Total Creatine Kinase 1273 H CK-MB (CK-2) 182.7 H CK-MB (CK-2) Rel Index 14.3 H Troponin T C-Reactive Protein Total Protein Albumin Vitamin B12 Urine WBC (Auto) U Epithel Cells (Auto) Urine Creatinine Urine Total Protein 11/08/16 11/08/16 11/08/16 13:56 13:56 17:09 WBC RBC Hgb Hct MCV MCH RDW Plt Count Lymph % (Auto) Lymph # Seg Neutrophils % Seg Neuts % (Manual) Lymphocytes % (Manual) Seg Neutrophils # Man Lymphocytes # (Manual) Percent Retic PT INR APTT Activated Clotting Time Heparin Anti-Xa Level POC ABG pCO2 POC ABG pO2 Sodium Potassium Chloride Carbon Dioxide BUN Creatinine Glucose POC Glucose Calcium TIBC AST Total Creatine Kinase 947 H CK-MB (CK-2) 91.7 H CK-MB (CK-2) Rel Index 9.6 H Troponin T C-Reactive Protein Total Protein Albumin Vitamin B12 Urine WBC (Auto) 25.0 H U Epithel Cells (Auto) 20.0 H Urine Creatinine 161.2 H Urine Total Protein 146 H 11/08/16 11/09/16 11/09/16 17:09 03:19 07:04 WBC RBC Hgb 8.6 L Hct 26.1 L MCV MCH RDW Plt Count Lymph % (Auto) Lymph # Seg Neutrophils % Seg Neuts % (Manual) Lymphocytes % (Manual) Seg Neutrophils # Man Lymphocytes # (Manual) Percent Retic PT INR APTT Activated Clotting Time Heparin Anti-Xa Level POC ABG pCO2 POC ABG pO2 Sodium 135 L Potassium 5.7 H D Chloride Carbon Dioxide 15 L BUN 70 H Creatinine 5.0 H D Glucose 169 H POC Glucose Calcium 7.9 L TIBC AST Total Creatine Kinase CK-MB (CK-2) CK-MB (CK-2) Rel Index Troponin T C-Reactive Protein 5.80 H Total Protein Albumin Vitamin B12 Urine WBC (Auto) U Epithel Cells (Auto) Urine Creatinine Urine Total Protein 11/09/16 11/10/16 11/10/16 21:00 04:32 07:16 WBC RBC Hgb 8.4 L Hct 25.6 L MCV MCH RDW Plt Count 111 L Lymph % (Auto) Lymph # Seg Neutrophils % Seg Neuts % (Manual) Lymphocytes % (Manual) Seg Neutrophils # Man Lymphocytes # (Manual) Percent Retic PT INR APTT Activated Clotting Time Heparin Anti-Xa Level 0.91 H 0.12 L POC ABG pCO2 POC ABG pO2 Sodium Potassium Chloride Carbon Dioxide BUN Creatinine Glucose POC Glucose Calcium TIBC AST Total Creatine Kinase CK-MB (CK-2) CK-MB (CK-2) Rel Index Troponin T C-Reactive Protein Total Protein Albumin Vitamin B12 Urine WBC (Auto) U Epithel Cells (Auto) Urine Creatinine Urine Total Protein 11/10/16 11/10/16 11/10/16 10:05 18:10 19:09 WBC RBC Hgb Hct MCV MCH RDW Plt Count Lymph % (Auto) Lymph # Seg Neutrophils % Seg Neuts % (Manual) Lymphocytes % (Manual) Seg Neutrophils # Man Lymphocytes # (Manual) Percent Retic 4.37 H PT INR APTT Activated Clotting Time Heparin Anti-Xa Level POC ABG pCO2 POC ABG pO2 Sodium Potassium Chloride 97.2 L Carbon Dioxide BUN 62 H Creatinine 4.4 H Glucose 206 H POC Glucose Calcium 7.0 L TIBC 237 L AST Total Creatine Kinase CK-MB (CK-2) CK-MB (CK-2) Rel Index Troponin T C-Reactive Protein Total Protein Albumin Vitamin B12 Urine WBC (Auto) U Epithel Cells (Auto) Urine Creatinine Urine Total Protein 11/13/16 11/13/16 11/13/16 04:47 04:47 05:48 WBC RBC 2.82 L Hgb 9.1 L Hct 27.8 L MCV 99 H MCH RDW Plt Count 89 L Lymph % (Auto) Lymph # Seg Neutrophils % Seg Neuts % (Manual) 92.0 H Lymphocytes % (Manual) 5.0 L Seg Neutrophils # Man 7.8 H Lymphocytes # (Manual) 0.4 L Percent Retic PT INR APTT Activated Clotting Time Heparin Anti-Xa Level POC ABG pCO2 POC ABG pO2 Sodium Potassium Chloride 96.8 L Carbon Dioxide BUN 60 H Creatinine 3.6 H Glucose 175 H POC Glucose 174 H Calcium 7.1 L TIBC AST Total Creatine Kinase CK-MB (CK-2) CK-MB (CK-2) Rel Index Troponin T C-Reactive Protein Total Protein Albumin Vitamin B12 Urine WBC (Auto) U Epithel Cells (Auto) Urine Creatinine Urine Total Protein 11/14/16 11/16/16 11/16/16 08:49 05:29 16:38 WBC RBC Hgb Hct MCV MCH RDW Plt Count Lymph % (Auto) Lymph # Seg Neutrophils % Seg Neuts % (Manual) Lymphocytes % (Manual) Seg Neutrophils # Man Lymphocytes # (Manual) Percent Retic PT INR APTT Activated Clotting Time Heparin Anti-Xa Level POC ABG pCO2 POC ABG pO2 Sodium 136 L 132 L Potassium Chloride 94.4 L 90.7 L Carbon Dioxide 19 L BUN 92 H 136 H Creatinine 4.5 H 5.0 H Glucose 196 H 223 H POC Glucose 143 H Calcium 7.2 L 7.3 L TIBC AST Total Creatine Kinase CK-MB (CK-2) CK-MB (CK-2) Rel Index Troponin T C-Reactive Protein Total Protein Albumin Vitamin B12 Urine WBC (Auto) U Epithel Cells (Auto) Urine Creatinine Urine Total Protein 11/17/16 11/17/16 11/17/16 05:42 05:42 21:08 WBC RBC 2.93 L Hgb 9.7 L Hct 28.8 L MCV 98 H MCH 33 H RDW 15.5 H Plt Count 105 L Lymph % (Auto) Lymph # Seg Neutrophils % Seg Neuts % (Manual) Lymphocytes % (Manual) Seg Neutrophils # Man Lymphocytes # (Manual) Percent Retic PT INR APTT Activated Clotting Time Heparin Anti-Xa Level POC ABG pCO2 POC ABG pO2 Sodium 136 L Potassium Chloride 94.4 L Carbon Dioxide BUN 78 H Creatinine 3.4 H Glucose 204 H POC Glucose 190 H Calcium 7.5 L TIBC AST Total Creatine Kinase CK-MB (CK-2) CK-MB (CK-2) Rel Index Troponin T C-Reactive Protein Total Protein Albumin Vitamin B12 Urine WBC (Auto) U Epithel Cells (Auto) Urine Creatinine Urine Total Protein 11/18/16 11/18/16 11/18/16 05:00 05:00 07:38 WBC 11.8 H RBC 3.01 L Hgb 9.7 L Hct MCV 101 H MCH RDW 15.5 H Plt Count 68 L Lymph % (Auto) Lymph # Seg Neutrophils % Seg Neuts % (Manual) 96.0 H Lymphocytes % (Manual) 2.0 L Seg Neutrophils # Man 11.3 H Lymphocytes # (Manual) 0.2 L Percent Retic PT INR APTT Activated Clotting Time Heparin Anti-Xa Level POC ABG pCO2 POC ABG pO2 Sodium 128 L D Potassium 5.3 H Chloride 89.7 L Carbon Dioxide 19 L BUN 104 H Creatinine 4.5 H Glucose 174 H POC Glucose 172 H Calcium 7.5 L TIBC AST Total Creatine Kinase CK-MB (CK-2) CK-MB (CK-2) Rel Index Troponin T C-Reactive Protein Total Protein Albumin Vitamin B12 Urine WBC (Auto) U Epithel Cells (Auto) Urine Creatinine Urine Total Protein 11/18/16 11/19/16 11/19/16 10:48 03:30 20:41 WBC RBC 2.95 L Hgb 9.6 L Hct 29.4 L MCV 100 H MCH 33 H RDW 15.3 H Plt Count 115 L Lymph % (Auto) Lymph # Seg Neutrophils % Seg Neuts % (Manual) Lymphocytes % (Manual) Seg Neutrophils # Man Lymphocytes # (Manual) Percent Retic PT INR APTT Activated Clotting Time Heparin Anti-Xa Level POC ABG pCO2 34.6 L POC ABG pO2 79 L Sodium Potassium Chloride Carbon Dioxide BUN Creatinine Glucose POC Glucose 309 H Calcium TIBC AST Total Creatine Kinase CK-MB (CK-2) CK-MB (CK-2) Rel Index Troponin T C-Reactive Protein Total Protein Albumin Vitamin B12 Urine WBC (Auto) U Epithel Cells (Auto) Urine Creatinine Urine Total Protein 11/20/16 11/20/16 11/20/16 05:50 05:50 07:41 WBC RBC 3.03 L Hgb 9.8 L Hct 29.9 L MCV 99 H MCH RDW Plt Count 116 L Lymph % (Auto) Lymph # Seg Neutrophils % Seg Neuts % (Manual) 96.0 H Lymphocytes % (Manual) 2.0 L Seg Neutrophils # Man 9.7 H Lymphocytes # (Manual) 0.2 L Percent Retic PT INR APTT Activated Clotting Time Heparin Anti-Xa Level POC ABG pCO2 POC ABG pO2 Sodium 132 L Potassium Chloride 95.5 L Carbon Dioxide BUN 85 H Creatinine 3.1 H Glucose 199 H POC Glucose 182 H Calcium 7.9 L TIBC AST Total Creatine Kinase CK-MB (CK-2) CK-MB (CK-2) Rel Index Troponin T C-Reactive Protein Total Protein Albumin Vitamin B12 Urine WBC (Auto) U Epithel Cells (Auto) Urine Creatinine Urine Total Protein 11/20/16 11/20/16 11/20/16 12:04 21:16 21:23 WBC RBC Hgb Hct MCV MCH RDW Plt Count Lymph % (Auto) Lymph # Seg Neutrophils % Seg Neuts % (Manual) Lymphocytes % (Manual) Seg Neutrophils # Man Lymphocytes # (Manual) Percent Retic PT INR APTT Activated Clotting Time Heparin Anti-Xa Level POC ABG pCO2 POC ABG pO2 Sodium 131 L Potassium Chloride 93.3 L Carbon Dioxide BUN 53 H Creatinine 2.0 H Glucose 163 H POC Glucose 179 H Calcium 8.2 L TIBC AST 42 H Total Creatine Kinase CK-MB (CK-2) CK-MB (CK-2) Rel Index Troponin T C-Reactive Protein Total Protein 5.3 L Albumin 2.4 L Vitamin B12 1454 H Urine WBC (Auto) U Epithel Cells (Auto) Urine Creatinine Urine Total Protein 11/21/16 11/21/16 11/21/16 05:25 05:25 16:44 WBC RBC 2.94 L Hgb 9.5 L Hct 28.7 L MCV 98 H MCH RDW 15.3 H Plt Count 113 L Lymph % (Auto) Lymph # Seg Neutrophils % Seg Neuts % (Manual) 91.0 H Lymphocytes % (Manual) 6.0 L Seg Neutrophils # Man 9.1 H Lymphocytes # (Manual) 0.6 L Percent Retic PT INR APTT Activated Clotting Time Heparin Anti-Xa Level POC ABG pCO2 POC ABG pO2 Sodium 133 L Potassium Chloride 95.6 L Carbon Dioxide BUN 67 H Creatinine 2.3 H Glucose 187 H POC Glucose 129 H Calcium 8.3 L TIBC AST Total Creatine Kinase CK-MB (CK-2) CK-MB (CK-2) Rel Index Troponin T C-Reactive Protein Total Protein Albumin Vitamin B12 Urine WBC (Auto) U Epithel Cells (Auto) Urine Creatinine Urine Total Protein 11/21/16 11/22/16 11/22/16 22:24 05:13 05:13 WBC RBC 2.72 L Hgb 8.8 L Hct 26.7 L MCV 98 H MCH 33 H RDW 15.3 H Plt Count 126 L Lymph % (Auto) Lymph # Seg Neutrophils % Seg Neuts % (Manual) 90.0 H Lymphocytes % (Manual) 3.0 L Seg Neutrophils # Man 8.9 H Lymphocytes # (Manual) 0.3 L Percent Retic PT INR APTT Activated Clotting Time Heparin Anti-Xa Level POC ABG pCO2 POC ABG pO2 Sodium 132 L Potassium Chloride 95.2 L Carbon Dioxide BUN 85 H Creatinine 3.1 H Glucose 184 H POC Glucose 227 H Calcium 7.7 L TIBC AST Total Creatine Kinase CK-MB (CK-2) CK-MB (CK-2) Rel Index Troponin T C-Reactive Protein Total Protein Albumin Vitamin B12 Urine WBC (Auto) U Epithel Cells (Auto) Urine Creatinine Urine Total Protein 11/23/16 11/23/16 11/23/16 05:15 05:15 11:13 WBC 12.9 H RBC 2.61 L Hgb 8.4 L Hct 25.8 L MCV 99 H MCH RDW 15.4 H Plt Count 135 L Lymph % (Auto) Lymph # Seg Neutrophils % Seg Neuts % (Manual) 86.0 H Lymphocytes % (Manual) 9.0 L Seg Neutrophils # Man 11.1 H Lymphocytes # (Manual) Percent Retic PT INR APTT Activated Clotting Time 263 H Heparin Anti-Xa Level POC ABG pCO2 POC ABG pO2 Sodium 133 L Potassium Chloride 94.6 L Carbon Dioxide 21 L BUN 104 H Creatinine 3.0 H Glucose 220 H POC Glucose Calcium 8.1 L TIBC AST Total Creatine Kinase CK-MB (CK-2) CK-MB (CK-2) Rel Index Troponin T C-Reactive Protein Total Protein Albumin Vitamin B12 Urine WBC (Auto) U Epithel Cells (Auto) Urine Creatinine Urine Total Protein 11/23/16 11/23/16 11/24/16 15:53 21:03 05:15 WBC RBC 2.63 L Hgb 8.5 L Hct 25.7 L MCV MCH RDW 15.3 H Plt Count 139 L Lymph % (Auto) Lymph # Seg Neutrophils % Seg Neuts % (Manual) Lymphocytes % (Manual) 1.0 L Seg Neutrophils # Man 10.6 H Lymphocytes # (Manual) 0.1 L Percent Retic PT INR APTT Activated Clotting Time Heparin Anti-Xa Level POC ABG pCO2 POC ABG pO2 Sodium Potassium Chloride Carbon Dioxide BUN Creatinine Glucose POC Glucose 194 H 378 H Calcium TIBC AST Total Creatine Kinase CK-MB (CK-2) CK-MB (CK-2) Rel Index Troponin T C-Reactive Protein Total Protein Albumin Vitamin B12 Urine WBC (Auto) U Epithel Cells (Auto) Urine Creatinine Urine Total Protein 11/24/16 11/24/16 11/24/16 05:15 07:51 09:24 WBC RBC Hgb Hct MCV MCH RDW Plt Count Lymph % (Auto) Lymph # Seg Neutrophils % Seg Neuts % (Manual) Lymphocytes % (Manual) Seg Neutrophils # Man Lymphocytes # (Manual) Percent Retic PT INR APTT Activated Clotting Time Heparin Anti-Xa Level POC ABG pCO2 32.2 L POC ABG pO2 Sodium 128 L Potassium Chloride 93.9 L Carbon Dioxide 18 L BUN 99 H Creatinine 3.3 H Glucose 157 H POC Glucose 181 H Calcium 7.6 L TIBC AST Total Creatine Kinase CK-MB (CK-2) 4.9 H CK-MB (CK-2) Rel Index 7.5 H Troponin T 2.670 H* C-Reactive Protein Total Protein Albumin Vitamin B12 Urine WBC (Auto) U Epithel Cells (Auto) Urine Creatinine Urine Total Protein Allied health notes reviewed: RT
[2016-11-24] MEDS: SENOKOT S PO SCH (21:35)
[2016-11-25 06:25] LABS: BUN/Creatinine Ratio 23.33; Calcium 7.2 mg/dL (8.4-10.2)
[2016-11-25 06:26] LABS: Chloride 100.6 mmol/L (98-107); Potassium 3.9 mmol/L (3.6-5.0)
[2016-11-25 08:15] LABS: Hematocrit 24.8 % (30.3-42.9); Hemoglobin 8.2 gm/dl (10.1-14.3); Mean Corpuscular HGB Conc 33 % (30-34); Mean Corpuscular Hemoglobin 32 pg (28-32); Mean Corpuscular Volume 98 fl (79-97); Platelet Count 140 K/mm3 (140-440); Red Blood Count 2.53 M/mm3 (3.65-5.03); Red Cell Distribution Width 15.5 % (13.2-15.2); White Blood Count 8.7 K/mm3 (4.5-11.0)
--- NOTE | 2016-11-25 08:39 | XRay Report ---
ROUTINE CHEST, TWO VIEWS: HISTORY: Followup pulmonary infiltrates. The lungs are clear on today's exam. This probably represents resolution of pulmonary edema. Cardiomegaly is stable. No pleural effusion or pneumothorax is identified. Right dialysis catheter terminates at the cavoatrial junction. IMPRESSION: Cardiomegaly. Lungs clear.
[2016-11-25] MEDS: DUONEB *Not for PRN Use IH SCH ×2 (08:57→15:34)
[2016-11-25 09:35] LABS: Basophils % (Manual) 0 % (0.0-1.8); Blastocytes % (Manual) 0 %
[2016-11-25 09:36] LABS: Anisocytosis 1+; Diff Status Complete; Eosinophils % (Manual) 0 % (0.0-4.3); Hypochromasia 1+; Ovalocytes 1+; Stomatocytes Few; Total Cells Counted Percent 0
[2016-11-25] MEDS: IMDUR PO SCH (09:43)
[2016-11-25] MEDS: NAMENDA XR PO SCH (09:43)
[2016-11-25] MEDS: PLAVIX PO SCH (09:43)
[2016-11-25] MEDS: OYSCO D 500 MG-200 UNIT PO SCH (09:44)
[2016-11-25] MEDS: APRESOLINE PO SCH ×2 (09:44→13:49)
[2016-11-25] MEDS: PROTONIX PO SCH (09:44)
[2016-11-25] MEDS: BABY ASPIRIN PO SCH (09:44)
[2016-11-25] MEDS: COREG PO SCH (09:45)
[2016-11-25] MEDS: NORVASC PO SCH (09:46)
--- NOTE | 2016-11-25 10:04 | Progress Note ---
Assessment and Plan - Patient Problems (1) Acute kidney injury superimposed on CKD Current Visit: Yes Status: Acute Plan to address problem: pt with increased urine output. will monitor lytes/renal parameters closely for possible renal recovery. If azotemia/metabolic acidosis worsens, will arrange HD tomorrow AM. Volume status is fair. cont supportive care for NATHALIA Avoid nephrotoxins, NSAIDs, further IV contrast (2) Acute on chronic systolic (congestive) heart failure Current Visit: Yes Status: Acute Plan to address problem: Strict I/Os 2D echo showed EF of 10-15 % Cont BB, Fluid removal with HD; Will restart JEF-I/ARB once renal function in steady state/or pt requires jail HD. (3) NSTEMI (non-ST elevated myocardial infarction) Current Visit: Yes Status: Acute Plan to address problem: s/p 2 vessel PCI of the mid LAD and mid circumflex, follow cardio recs (4) Acute respiratory failure with hypoxia Current Visit: Yes Status: Acute Plan to address problem: now stable. BiPAP support as needed (5) HTN (hypertension) Current Visit: Yes Status: Chronic Qualifiers: Hypertension type: essential hypertension Qualified Code(s): I10 - Essential (primary) hypertension Plan to address problem: monitor BP on current meds Subjective Date of service: 11/25/16 Principal diagnosis: Acute Hypoxemic Respiratory Failure Interval history: pt awake, alert, no acute distress. Objective - Vital Signs Vital signs: Vital Signs - 12hr 11/24/16 11/25/16 11/25/16 23:32 02:59 06:00 Temperature 98.7 F 98.9 F Pulse Rate 75 76 75 Respiratory 20 20 Rate Blood Pressure 129/60 137/66 O2 Sat by Pulse 94 97 Oximetry 11/25/16 11/25/16 11/25/16 09:43 09:44 09:45 Temperature Pulse Rate 75 75 75 Respiratory Rate Blood Pressure 137/66 137/66 137/66 O2 Sat by Pulse Oximetry - General Appearance General appearance: well-developed, appears stated age EENT: ATNC, PERRL, mucous membranes moist Neck: no JVD Respiratory: Present: Clear to Ascultation Cardiology: regular, S1S2 Gastrointestinal: normoactive bowel sounds Integumentary: no rash, other (no edema ) Neurologic: no focal deficit, alert and oriented x3, strength 5/5, CN 3-12 intact Psychiatric: mood/affect appropriate, cooperative - Lab 11/25/16 07:38 11/25/16 05:45 Most recent lab results Calcium 7.2 mg/dL (8.4-10.2) L 11/25/16 05:45 Urine Creatinine 161.2 mg/dL (0.1-20.0) H 11/08/16 13:56 Urine Total Protein 146 mg/dL (5-11.8) H 11/08/16 13:56
--- NOTE | 2016-11-25 10:37 | Discharge Summary ---
Providers - Providers Date of Admission: 11/07/16 21:22 Attending physician: TIANA MEDLEY MD 11/08/16 17:22 PICC Line Insertion [Consult to PICC Line RN] [CONS] Routine Reason For Exam: PICC Type Line:: PICC 11/09/16 12:53 Consult to Interventional Radiology [CONS] Urgent Consulting Provider: NED LARIOS Reason For Exam: Vas-Cath placement Place consult to:: Dr Larios Notified:: Filippo Rubio Was contact made?: Yes Time called:: 13:03 11/11/16 15:09 Consult to Physician [CONS] Routine Consulting Provider: RACHAEL HERRERA Reason For Exam: Worsening Anemia with +FOBT Place consult to:: Diya SMITH Notified:: office Was contact made?: Yes Time called:: 16:04 11/13/16 09:59 Consult to Cardiac Rehabilitation [CONS] Routine Reason For Exam: Cardiac Rehab Evaluation 11/20/16 12:13 Consult to Physician [CONS] Routine Consulting Provider: DEEPAK CRUZ Reason For Exam: thrombocytopenia Place consult to:: hemo Notified:: office Phone number called:: [phone] Was contact made?: Yes If yes, spoke with:: kristan Time called:: 12:53 11/23/16 Consult to Cardiac Rehabilitation [CONS] Routine Reason For Exam: post pci 11/23/16 10:23 Consult to Dietitian/Nutrition [CONS] Routine Physician Instructions: Reason For Exam: Reason for Consult: marline score 15 Primary care physician: OTOLARYNGOLOGY REP Hospitalization Reason for admission: NSTEMI, NATHALIA on CKD Condition: Serious Hospital course: Admission H&P This is a 70-year-old Afro-[place] female presents the emergency department by EMS from her home by EMS with complaint of 2 days of diarrhea and possible dehydration. Once the patient got here she appeared to have some shortness of breath and was noticed to have lower extremity swelling. The patient does admit to shortness of breath but denies any chest pain, or fever She appears to have a past medical history of CVA, diabetes and hypertension. She was not given anything for symptoms prior to presentation or in route. She denies any abdominal pain but does admit to the loose stool. NSTEMI -LHC this admission reports a 80% proximal OM2, 60-70% mid LAD, severe diffuse disease of a small distal RCA with left to right collaterals. -Status post PCI of the mid LAD and mid circumflex using a bare-metal stents -Continue with Plavix and aspirin NATHALIA vs CKD - Patient is scheduled to be continued with HD Wednesday as outpatient Acute decompensated systolic heart failure. Continue hemodialysis as above for volume control. Cardiology following. Transthoracic echocardiogram report by Dr. Shane read as left ventricular chamber size severely dilated, global left systolic function is severely decreased, estimated ejection fraction is 10-15%, mild concentric left ventricular hypertrophy, left atrium is severely dilated, moderate to severe MR, mild to moderate TR, evidence of mild pulmonary hypertension, trivial pericardial effusion, catheters visualizing right atrium. Anemia. EGD/Flex this admission reports mild non-erosive gastritis and hemorrhoids. GIB: Continue Protonix. Thrombocytopenia: Stable, Hematology consult appreciated. Severe Cardiomyopathy. LVEF 10-15% on echocardiogram. Moderate to severe mitral regurgitation hx CVA Hypertension. Continue antihypertensive medications. Patient was stable at the time of discharge and medications were updated and transferred to SNF. Disposition: DC/TX-03 SNF [facility] Time spent for discharge: 31 minutes - Discharge Diagnoses (1) NSTEMI (non-ST elevated myocardial infarction) Status: Acute (2) Acute kidney injury superimposed on CKD Status: Acute (3) Acute on chronic systolic (congestive) heart failure Status: Acute (4) Acute pulmonary edema Status: Acute (5) Acute respiratory failure with hypoxia Status: Acute (6) CKD (chronic kidney disease) stage 4, GFR 15-29 ml/min Status: Chronic (7) HTN (hypertension) Status: Chronic Qualifiers: Hypertension type: essential hypertension Qualified Code(s): I10 - Essential (primary) hypertension (8) Acute respiratory failure Status: Resolved Qualifiers: Respiratory failure complication: hypoxia Qualified Code(s): J96.01 - Acute respiratory failure with hypoxia Core Measure Documentation - Palliative Care Palliative Care/ Comfort Measures: Not Applicable - Core Measures Any of the following diagnoses?: none - Acute TN Discharge Requirements JEF/ARB for LVSD if EF <40%: No Reason for no JEF/ARB: Renal impairment Beta abril at discharge: Yes Statin for LDL = or >100 mg/dl on DC: Yes Exam - Physical Exam Narrative exam: Not in cardiopulmonary distress. The patient appeared well nourished and normally developed. Vital signs as documented. Head exam is unremarkable. No scleral icterus . Neck is without jugular venous distension, thyromegaly, or carotid bruits. Lungs are clear to auscultation. Cardiac exam reveals regular rate and Rhythm. Abdominal exam reveals normal bowel sounds, no masses, no organomegaly and no aortic enlargement. Extremities are nonedematous and both femoral and pedal pulses are normal. MANAGER DATABASE ADMINISTRATION: Alert and oriented 3. No focal weakness. - Constitutional Vitals: Temp Pulse Resp BP Pulse Ox 98.0 F 75 22 137/66 98 11/25/16 09:00 11/25/16 09:45 11/25/16 09:00 11/25/16 09:45 11/25/16 09:00 Plan Activity: advance as tolerated Weight Bearing Status: Non-Weight Bearing Diet: low cholesterol, low salt, renal Follow up with: PRIMARY CARE, [Primary Care Provider] - 3-5 Days
--- NOTE | 2016-11-25 10:53 | Progress Note ---
Assessment and Plan Renal failure initiated on dialysis this admission Acute systolic heart failure Anemia EGD/Flex this admission reports mild non-erosive gastritis and hemorrhoids. Thrombocytopenia NSTEMI s/p PCI of the mid LAD and mid circumflex using baremetal stents. on plavix and aspirin Severe Cardiomyopathy LVEF 10-15% on echocardiogram Moderate to severe mitral regurgitation Prior CVA Hypertension Recommendation: Continue medical therapy for her coronary artery disease and cardiomyopathy. Stable, cardiac soriano, for discharge. Subjective Date of service: 11/25/16 Principal diagnosis: Acute Hypoxemic Respiratory Failure Interval history: Patient has no complaints. Hgb remains stable. For planned discharge to SNF today. Objective Vital Signs Temp Pulse Pulse Resp Resp Resp BP 11/25/16 09:45 75 137/66 11/25/16 09:44 75 137/66 11/25/16 09:43 75 137/66 11/25/16 09:00 98.0 F 74 22 149/67 11/25/16 06:00 98.9 F 75 20 137/66 11/25/16 02:59 76 11/24/16 23:32 98.7 F 75 20 129/60 11/24/16 22:00 22 11/24/16 21:57 22 11/24/16 21:35 75 122/58 11/24/16 21:34 75 122/58 11/24/16 20:15 77 20 11/24/16 20:04 82 20 11/24/16 19:34 98.6 F 75 20 122/58 11/24/16 19:19 74 11/24/16 17:20 97.8 F 68 20 169/67 11/24/16 15:05 74 18 11/24/16 14:45 72 18 11/24/16 13:53 98.3 F 61 16 145/71 11/24/16 13:30 70 122/50 11/24/16 13:15 71 128/51 11/24/16 13:00 62 126/52 11/24/16 12:45 60 123/62 11/24/16 12:30 66 126/58 11/24/16 12:15 64 91/42 11/24/16 12:07 62 108/50 11/24/16 11:45 70 100/60 11/24/16 11:30 70 107/60 11/24/16 11:15 68 114/62 11/24/16 11:00 70 113/64 Pulse Ox 11/25/16 09:45 11/25/16 09:44 11/25/16 09:43 11/25/16 09:00 98 11/25/16 06:00 97 11/25/16 02:59 11/24/16 23:32 94 11/24/16 22:00 11/24/16 21:57 96 11/24/16 21:35 11/24/16 21:34 11/24/16 20:15 11/24/16 20:04 95 11/24/16 19:34 95 11/24/16 19:19 11/24/16 17:20 96 11/24/16 15:05 11/24/16 14:45 11/24/16 13:53 11/24/16 13:30 11/24/16 13:15 11/24/16 13:00 11/24/16 12:45 11/24/16 12:30 11/24/16 12:15 11/24/16 12:07 11/24/16 11:45 11/24/16 11:30 11/24/16 11:15 11/24/16 11:00 - Physical Examination General: No Apparent Distress HEENT: Positive: PERRL Neck: Positive: trachea midline Cardiac: Positive: Reg Rate and Rhythm - Labs and Meds CBC 11/25/16 Range/Units 07:38 WBC 8.7 (4.5-11.0) K/mm3 RBC 2.53 L (3.65-5.03) M/mm3 Hgb 8.2 L (10.1-14.3) gm/dl Hct 24.8 L (30.3-42.9) % Plt Count 140 (140-440) K/mm3 Comprehensive Metabolic Panel 11/25/16 Range/Units 05:45 Sodium 138 D (137-145) mmol/L Potassium 3.9 (3.6-5.0) mmol/L Chloride 100.6 (98-107) mmol/L Carbon Dioxide 24 (22-30) mmol/L BUN 56 H (7-17) mg/dL Creatinine 2.4 H (0.7-1.2) mg/dL Glucose 195 H (65-100) mg/dL Calcium 7.2 L (8.4-10.2) mg/dL - Imaging and Cardiology EKG: report reviewed (Sinus Tach pvc's LVH 119/min Repolarization abnormalities) - Allied health notes Allied health notes reviewed: RT
--- NOTE | 2016-11-25 13:02 | Progress Note ---
Subjective Date of service: 11/25/16 Principal diagnosis: Acute Hypoxemic Respiratory Failure Interval history: Seen and examined at bedside; 24 hour events reviewed; nursing and respiratory care staff consulted; no adverse overnight events reported to me; Objective Vital Signs - 12hr 11/25/16 11/25/16 11/25/16 02:59 06:00 08:55 Temperature 98.9 F Pulse Rate 76 75 Pulse Rate [ 72 Anterior Bilateral Throughout] Pulse Rate [ 68 Bilateral Throughout] Respiratory 20 Rate Respiratory 18 Rate [Anterior Bilateral Throughout] Respiratory 18 Rate [Bilateral Throughout] Blood Pressure 137/66 O2 Sat by Pulse 97 Oximetry 11/25/16 11/25/16 11/25/16 09:00 09:10 09:43 Temperature 98.0 F Pulse Rate 74 75 Pulse Rate [ 68 Anterior Bilateral Throughout] Pulse Rate [ 72 Bilateral Throughout] Respiratory 22 Rate Respiratory 20 Rate [Anterior Bilateral Throughout] Respiratory 18 Rate [Bilateral Throughout] Blood Pressure 149/67 137/66 O2 Sat by Pulse 98 Oximetry 11/25/16 11/25/16 11/25/16 09:44 09:45 10:00 Temperature Pulse Rate 75 75 Pulse Rate [ Anterior Bilateral Throughout] Pulse Rate [ Bilateral Throughout] Respiratory Rate Respiratory Rate [Anterior Bilateral Throughout] Respiratory Rate [Bilateral Throughout] Blood Pressure 137/66 137/66 O2 Sat by Pulse 98 Oximetry Constitutional: no acute distress, alert Eyes: non-icteric ENT: oropharynx moist Neck: supple, no JVD Effort: normal Ascultation: Bilateral: diminished breath sounds, rales (basilar and scant) Cardiovascular: regular rate and rhythm Gastrointestinal: normoactive bowel sounds, soft, non-tender, non-distended Integumentary: normal Extremities: no cyanosis, no edema, pulses normal, no ischemia or petechiae Neurologic: normal mental status, non-focal exam, CN II-XII normal Psychiatric: mood appropriate, affect normal CBC and BMP: 11/25/16 07:38 11/25/16 05:45 ABG, PT/INR, D-dimer: ABG POC ABG pH 7.435 (7.35-7.45) 11/24/16 09:24 POC ABG pCO2 32.2 (35-45) L 11/24/16 09:24 POC ABG pO2 94 (80-105) 11/24/16 09:24 POC ABG HCO3 21.7 11/24/16 09:24 POC ABG Total CO2 23 11/24/16 09:24 POC ABG O2 Sat 98 11/24/16 09:24 PT/INR, D-dimer PT 14.0 Sec. (12.2-14.9) 11/21/16 18:25 INR 1.09 (0.87-1.13) 11/21/16 18:25 D-Dimer 1575.53 ng/mlDDU (0-234) H 11/07/16 16:35 Abnormal lab findings: Abnormal Labs 11/07/16 11/08/16 11/08/16 21:43 06:45 06:45 WBC RBC 2.37 L Hgb 7.6 L Hct 23.3 L D MCV 98 H MCH RDW Plt Count Lymph % (Auto) 8.0 L Lymph # 0.5 L Seg Neutrophils % 89.2 H Seg Neuts % (Manual) Lymphocytes % (Manual) Seg Neutrophils # Man Lymphocytes # (Manual) Percent Retic PT INR APTT Activated Clotting Time Heparin Anti-Xa Level POC ABG pCO2 POC ABG pO2 Sodium Potassium Chloride Carbon Dioxide 17 L BUN 52 H Creatinine 3.3 H Glucose 263 H POC Glucose Calcium TIBC AST 164 H Total Creatine Kinase 1584 H CK-MB (CK-2) 268.6 H CK-MB (CK-2) Rel Index 16.9 H Troponin T C-Reactive Protein Total Protein 5.6 L Albumin 2.5 L Vitamin B12 Urine WBC (Auto) U Epithel Cells (Auto) Urine Creatinine Urine Total Protein 11/08/16 11/08/16 11/08/16 06:45 12:04 12:04 WBC RBC Hgb 8.0 L Hct 23.7 L MCV MCH RDW Plt Count Lymph % (Auto) Lymph # Seg Neutrophils % Seg Neuts % (Manual) Lymphocytes % (Manual) Seg Neutrophils # Man Lymphocytes # (Manual) Percent Retic PT 16.5 H INR 1.34 H APTT 38.5 H Activated Clotting Time Heparin Anti-Xa Level POC ABG pCO2 POC ABG pO2 Sodium Potassium Chloride Carbon Dioxide BUN Creatinine Glucose POC Glucose Calcium TIBC AST Total Creatine Kinase 1273 H CK-MB (CK-2) 182.7 H CK-MB (CK-2) Rel Index 14.3 H Troponin T C-Reactive Protein Total Protein Albumin Vitamin B12 Urine WBC (Auto) U Epithel Cells (Auto) Urine Creatinine Urine Total Protein 11/08/16 11/08/16 11/08/16 13:56 13:56 17:09 WBC RBC Hgb Hct MCV MCH RDW Plt Count Lymph % (Auto) Lymph # Seg Neutrophils % Seg Neuts % (Manual) Lymphocytes % (Manual) Seg Neutrophils # Man Lymphocytes # (Manual) Percent Retic PT INR APTT Activated Clotting Time Heparin Anti-Xa Level POC ABG pCO2 POC ABG pO2 Sodium Potassium Chloride Carbon Dioxide BUN Creatinine Glucose POC Glucose Calcium TIBC AST Total Creatine Kinase 947 H CK-MB (CK-2) 91.7 H CK-MB (CK-2) Rel Index 9.6 H Troponin T C-Reactive Protein Total Protein Albumin Vitamin B12 Urine WBC (Auto) 25.0 H U Epithel Cells (Auto) 20.0 H Urine Creatinine 161.2 H Urine Total Protein 146 H 11/08/16 11/09/16 11/09/16 17:09 03:19 07:04 WBC RBC Hgb 8.6 L Hct 26.1 L MCV MCH RDW Plt Count Lymph % (Auto) Lymph # Seg Neutrophils % Seg Neuts % (Manual) Lymphocytes % (Manual) Seg Neutrophils # Man Lymphocytes # (Manual) Percent Retic PT INR APTT Activated Clotting Time Heparin Anti-Xa Level POC ABG pCO2 POC ABG pO2 Sodium 135 L Potassium 5.7 H D Chloride Carbon Dioxide 15 L BUN 70 H Creatinine 5.0 H D Glucose 169 H POC Glucose Calcium 7.9 L TIBC AST Total Creatine Kinase CK-MB (CK-2) CK-MB (CK-2) Rel Index Troponin T C-Reactive Protein 5.80 H Total Protein Albumin Vitamin B12 Urine WBC (Auto) U Epithel Cells (Auto) Urine Creatinine Urine Total Protein 11/09/16 11/10/16 11/10/16 21:00 04:32 07:16 WBC RBC Hgb 8.4 L Hct 25.6 L MCV MCH RDW Plt Count 111 L Lymph % (Auto) Lymph # Seg Neutrophils % Seg Neuts % (Manual) Lymphocytes % (Manual) Seg Neutrophils # Man Lymphocytes # (Manual) Percent Retic PT INR APTT Activated Clotting Time Heparin Anti-Xa Level 0.91 H 0.12 L POC ABG pCO2 POC ABG pO2 Sodium Potassium Chloride Carbon Dioxide BUN Creatinine Glucose POC Glucose Calcium TIBC AST Total Creatine Kinase CK-MB (CK-2) CK-MB (CK-2) Rel Index Troponin T C-Reactive Protein Total Protein Albumin Vitamin B12 Urine WBC (Auto) U Epithel Cells (Auto) Urine Creatinine Urine Total Protein 11/10/16 11/10/16 11/10/16 10:05 18:10 19:09 WBC RBC Hgb Hct MCV MCH RDW Plt Count Lymph % (Auto) Lymph # Seg Neutrophils % Seg Neuts % (Manual) Lymphocytes % (Manual) Seg Neutrophils # Man Lymphocytes # (Manual) Percent Retic 4.37 H PT INR APTT Activated Clotting Time Heparin Anti-Xa Level POC ABG pCO2 POC ABG pO2 Sodium Potassium Chloride 97.2 L Carbon Dioxide BUN 62 H Creatinine 4.4 H Glucose 206 H POC Glucose Calcium 7.0 L TIBC 237 L AST Total Creatine Kinase CK-MB (CK-2) CK-MB (CK-2) Rel Index Troponin T C-Reactive Protein Total Protein Albumin Vitamin B12 Urine WBC (Auto) U Epithel Cells (Auto) Urine Creatinine Urine Total Protein 11/13/16 11/13/16 11/13/16 04:47 04:47 05:48 WBC RBC 2.82 L Hgb 9.1 L Hct 27.8 L MCV 99 H MCH RDW Plt Count 89 L Lymph % (Auto) Lymph # Seg Neutrophils % Seg Neuts % (Manual) 92.0 H Lymphocytes % (Manual) 5.0 L Seg Neutrophils # Man 7.8 H Lymphocytes # (Manual) 0.4 L Percent Retic PT INR APTT Activated Clotting Time Heparin Anti-Xa Level POC ABG pCO2 POC ABG pO2 Sodium Potassium Chloride 96.8 L Carbon Dioxide BUN 60 H Creatinine 3.6 H Glucose 175 H POC Glucose 174 H Calcium 7.1 L TIBC AST Total Creatine Kinase CK-MB (CK-2) CK-MB (CK-2) Rel Index Troponin T C-Reactive Protein Total Protein Albumin Vitamin B12 Urine WBC (Auto) U Epithel Cells (Auto) Urine Creatinine Urine Total Protein 11/14/16 11/16/16 11/16/16 08:49 05:29 16:38 WBC RBC Hgb Hct MCV MCH RDW Plt Count Lymph % (Auto) Lymph # Seg Neutrophils % Seg Neuts % (Manual) Lymphocytes % (Manual) Seg Neutrophils # Man Lymphocytes # (Manual) Percent Retic PT INR APTT Activated Clotting Time Heparin Anti-Xa Level POC ABG pCO2 POC ABG pO2 Sodium 136 L 132 L Potassium Chloride 94.4 L 90.7 L Carbon Dioxide 19 L BUN 92 H 136 H Creatinine 4.5 H 5.0 H Glucose 196 H 223 H POC Glucose 143 H Calcium 7.2 L 7.3 L TIBC AST Total Creatine Kinase CK-MB (CK-2) CK-MB (CK-2) Rel Index Troponin T C-Reactive Protein Total Protein Albumin Vitamin B12 Urine WBC (Auto) U Epithel Cells (Auto) Urine Creatinine Urine Total Protein 11/17/16 11/17/16 11/17/16 05:42 05:42 21:08 WBC RBC 2.93 L Hgb 9.7 L Hct 28.8 L MCV 98 H MCH 33 H RDW 15.5 H Plt Count 105 L Lymph % (Auto) Lymph # Seg Neutrophils % Seg Neuts % (Manual) Lymphocytes % (Manual) Seg Neutrophils # Man Lymphocytes # (Manual) Percent Retic PT INR APTT Activated Clotting Time Heparin Anti-Xa Level POC ABG pCO2 POC ABG pO2 Sodium 136 L Potassium Chloride 94.4 L Carbon Dioxide BUN 78 H Creatinine 3.4 H Glucose 204 H POC Glucose 190 H Calcium 7.5 L TIBC AST Total Creatine Kinase CK-MB (CK-2) CK-MB (CK-2) Rel Index Troponin T C-Reactive Protein Total Protein Albumin Vitamin B12 Urine WBC (Auto) U Epithel Cells (Auto) Urine Creatinine Urine Total Protein 11/18/16 11/18/16 11/18/16 05:00 05:00 07:38 WBC 11.8 H RBC 3.01 L Hgb 9.7 L Hct MCV 101 H MCH RDW 15.5 H Plt Count 68 L Lymph % (Auto) Lymph # Seg Neutrophils % Seg Neuts % (Manual) 96.0 H Lymphocytes % (Manual) 2.0 L Seg Neutrophils # Man 11.3 H Lymphocytes # (Manual) 0.2 L Percent Retic PT INR APTT Activated Clotting Time Heparin Anti-Xa Level POC ABG pCO2 POC ABG pO2 Sodium 128 L D Potassium 5.3 H Chloride 89.7 L Carbon Dioxide 19 L BUN 104 H Creatinine 4.5 H Glucose 174 H POC Glucose 172 H Calcium 7.5 L TIBC AST Total Creatine Kinase CK-MB (CK-2) CK-MB (CK-2) Rel Index Troponin T C-Reactive Protein Total Protein Albumin Vitamin B12 Urine WBC (Auto) U Epithel Cells (Auto) Urine Creatinine Urine Total Protein 11/18/16 11/19/16 11/19/16 10:48 03:30 20:41 WBC RBC 2.95 L Hgb 9.6 L Hct 29.4 L MCV 100 H MCH 33 H RDW 15.3 H Plt Count 115 L Lymph % (Auto) Lymph # Seg Neutrophils % Seg Neuts % (Manual) Lymphocytes % (Manual) Seg Neutrophils # Man Lymphocytes # (Manual) Percent Retic PT INR APTT Activated Clotting Time Heparin Anti-Xa Level POC ABG pCO2 34.6 L POC ABG pO2 79 L Sodium Potassium Chloride Carbon Dioxide BUN Creatinine Glucose POC Glucose 309 H Calcium TIBC AST Total Creatine Kinase CK-MB (CK-2) CK-MB (CK-2) Rel Index Troponin T C-Reactive Protein Total Protein Albumin Vitamin B12 Urine WBC (Auto) U Epithel Cells (Auto) Urine Creatinine Urine Total Protein 11/20/16 11/20/16 11/20/16 05:50 05:50 07:41 WBC RBC 3.03 L Hgb 9.8 L Hct 29.9 L MCV 99 H MCH RDW Plt Count 116 L Lymph % (Auto) Lymph # Seg Neutrophils % Seg Neuts % (Manual) 96.0 H Lymphocytes % (Manual) 2.0 L Seg Neutrophils # Man 9.7 H Lymphocytes # (Manual) 0.2 L Percent Retic PT INR APTT Activated Clotting Time Heparin Anti-Xa Level POC ABG pCO2 POC ABG pO2 Sodium 132 L Potassium Chloride 95.5 L Carbon Dioxide BUN 85 H Creatinine 3.1 H Glucose 199 H POC Glucose 182 H Calcium 7.9 L TIBC AST Total Creatine Kinase CK-MB (CK-2) CK-MB (CK-2) Rel Index Troponin T C-Reactive Protein Total Protein Albumin Vitamin B12 Urine WBC (Auto) U Epithel Cells (Auto) Urine Creatinine Urine Total Protein 11/20/16 11/20/16 11/20/16 12:04 21:16 21:23 WBC RBC Hgb Hct MCV MCH RDW Plt Count Lymph % (Auto) Lymph # Seg Neutrophils % Seg Neuts % (Manual) Lymphocytes % (Manual) Seg Neutrophils # Man Lymphocytes # (Manual) Percent Retic PT INR APTT Activated Clotting Time Heparin Anti-Xa Level POC ABG pCO2 POC ABG pO2 Sodium 131 L Potassium Chloride 93.3 L Carbon Dioxide BUN 53 H Creatinine 2.0 H Glucose 163 H POC Glucose 179 H Calcium 8.2 L TIBC AST 42 H Total Creatine Kinase CK-MB (CK-2) CK-MB (CK-2) Rel Index Troponin T C-Reactive Protein Total Protein 5.3 L Albumin 2.4 L Vitamin B12 1454 H Urine WBC (Auto) U Epithel Cells (Auto) Urine Creatinine Urine Total Protein 11/21/16 11/21/16 11/21/16 05:25 05:25 16:44 WBC RBC 2.94 L Hgb 9.5 L Hct 28.7 L MCV 98 H MCH RDW 15.3 H Plt Count 113 L Lymph % (Auto) Lymph # Seg Neutrophils % Seg Neuts % (Manual) 91.0 H Lymphocytes % (Manual) 6.0 L Seg Neutrophils # Man 9.1 H Lymphocytes # (Manual) 0.6 L Percent Retic PT INR APTT Activated Clotting Time Heparin Anti-Xa Level POC ABG pCO2 POC ABG pO2 Sodium 133 L Potassium Chloride 95.6 L Carbon Dioxide BUN 67 H Creatinine 2.3 H Glucose 187 H POC Glucose 129 H Calcium 8.3 L TIBC AST Total Creatine Kinase CK-MB (CK-2) CK-MB (CK-2) Rel Index Troponin T C-Reactive Protein Total Protein Albumin Vitamin B12 Urine WBC (Auto) U Epithel Cells (Auto) Urine Creatinine Urine Total Protein 11/21/16 11/22/16 11/22/16 22:24 05:13 05:13 WBC RBC 2.72 L Hgb 8.8 L Hct 26.7 L MCV 98 H MCH 33 H RDW 15.3 H Plt Count 126 L Lymph % (Auto) Lymph # Seg Neutrophils % Seg Neuts % (Manual) 90.0 H Lymphocytes % (Manual) 3.0 L Seg Neutrophils # Man 8.9 H Lymphocytes # (Manual) 0.3 L Percent Retic PT INR APTT Activated Clotting Time Heparin Anti-Xa Level POC ABG pCO2 POC ABG pO2 Sodium 132 L Potassium Chloride 95.2 L Carbon Dioxide BUN 85 H Creatinine 3.1 H Glucose 184 H POC Glucose 227 H Calcium 7.7 L TIBC AST Total Creatine Kinase CK-MB (CK-2) CK-MB (CK-2) Rel Index Troponin T C-Reactive Protein Total Protein Albumin Vitamin B12 Urine WBC (Auto) U Epithel Cells (Auto) Urine Creatinine Urine Total Protein 11/23/16 11/23/16 11/23/16 05:15 05:15 11:13 WBC 12.9 H RBC 2.61 L Hgb 8.4 L Hct 25.8 L MCV 99 H MCH RDW 15.4 H Plt Count 135 L Lymph % (Auto) Lymph # Seg Neutrophils % Seg Neuts % (Manual) 86.0 H Lymphocytes % (Manual) 9.0 L Seg Neutrophils # Man 11.1 H Lymphocytes # (Manual) Percent Retic PT INR APTT Activated Clotting Time 263 H Heparin Anti-Xa Level POC ABG pCO2 POC ABG pO2 Sodium 133 L Potassium Chloride 94.6 L Carbon Dioxide 21 L BUN 104 H Creatinine 3.0 H Glucose 220 H POC Glucose Calcium 8.1 L TIBC AST Total Creatine Kinase CK-MB (CK-2) CK-MB (CK-2) Rel Index Troponin T C-Reactive Protein Total Protein Albumin Vitamin B12 Urine WBC (Auto) U Epithel Cells (Auto) Urine Creatinine Urine Total Protein 11/23/16 11/23/16 11/24/16 15:53 21:03 05:15 WBC RBC 2.63 L Hgb 8.5 L Hct 25.7 L MCV MCH RDW 15.3 H Plt Count 139 L Lymph % (Auto) Lymph # Seg Neutrophils % Seg Neuts % (Manual) Lymphocytes % (Manual) 1.0 L Seg Neutrophils # Man 10.6 H Lymphocytes # (Manual) 0.1 L Percent Retic PT INR APTT Activated Clotting Time Heparin Anti-Xa Level POC ABG pCO2 POC ABG pO2 Sodium Potassium Chloride Carbon Dioxide BUN Creatinine Glucose POC Glucose 194 H 378 H Calcium TIBC AST Total Creatine Kinase CK-MB (CK-2) CK-MB (CK-2) Rel Index Troponin T C-Reactive Protein Total Protein Albumin Vitamin B12 Urine WBC (Auto) U Epithel Cells (Auto) Urine Creatinine Urine Total Protein 11/24/16 11/24/16 11/24/16 05:15 07:51 09:24 WBC RBC Hgb Hct MCV MCH RDW Plt Count Lymph % (Auto) Lymph # Seg Neutrophils % Seg Neuts % (Manual) Lymphocytes % (Manual) Seg Neutrophils # Man Lymphocytes # (Manual) Percent Retic PT INR APTT Activated Clotting Time Heparin Anti-Xa Level POC ABG pCO2 32.2 L POC ABG pO2 Sodium 128 L Potassium Chloride 93.9 L Carbon Dioxide 18 L BUN 99 H Creatinine 3.3 H Glucose 157 H POC Glucose 181 H Calcium 7.6 L TIBC AST Total Creatine Kinase CK-MB (CK-2) 4.9 H CK-MB (CK-2) Rel Index 7.5 H Troponin T 2.670 H* C-Reactive Protein Total Protein Albumin Vitamin B12 Urine WBC (Auto) U Epithel Cells (Auto) Urine Creatinine Urine Total Protein 11/24/16 11/25/16 11/25/16 21:48 05:45 07:38 WBC RBC 2.53 L Hgb 8.2 L Hct 24.8 L MCV 98 H MCH RDW 15.5 H Plt Count Lymph % (Auto) Lymph # Seg Neutrophils % Seg Neuts % (Manual) 99.0 H Lymphocytes % (Manual) 1.0 L Seg Neutrophils # Man 8.6 H Lymphocytes # (Manual) 0.1 L Percent Retic PT INR APTT Activated Clotting Time Heparin Anti-Xa Level POC ABG pCO2 POC ABG pO2 Sodium Potassium Chloride Carbon Dioxide BUN 56 H Creatinine 2.4 H Glucose 195 H POC Glucose 180 H Calcium 7.2 L TIBC AST Total Creatine Kinase CK-MB (CK-2) CK-MB (CK-2) Rel Index Troponin T C-Reactive Protein Total Protein Albumin Vitamin B12 Urine WBC (Auto) U Epithel Cells (Auto) Urine Creatinine Urine Total Protein 11/25/16 09:09 WBC RBC Hgb Hct MCV MCH RDW Plt Count Lymph % (Auto) Lymph # Seg Neutrophils % Seg Neuts % (Manual) Lymphocytes % (Manual) Seg Neutrophils # Man Lymphocytes # (Manual) Percent Retic PT INR APTT Activated Clotting Time Heparin Anti-Xa Level POC ABG pCO2 POC ABG pO2 Sodium Potassium Chloride Carbon Dioxide BUN Creatinine Glucose POC Glucose 157 H Calcium TIBC AST Total Creatine Kinase CK-MB (CK-2) CK-MB (CK-2) Rel Index Troponin T C-Reactive Protein Total Protein Albumin Vitamin B12 Urine WBC (Auto) U Epithel Cells (Auto) Urine Creatinine Urine Total Protein Allied health notes reviewed: RT
[2016-11-25 13:51] VITALS: BP 132/62
== END 2016-11-25 15:55 | DRG 248 ==
LOC: ED 14:46 → CC1 21:22 → 4A 11-11 01:21
PROVIDERS: ADMIT Internal Medicine; ATTEND Internal Medicine
PROC: 4A033R1 Measurement of Arterial Saturation, Peripheral, Percutaneous Approach (ICD-10-PCS; 2016-11-07)
PROC: 5A09357 Assistance with Respiratory Ventilation, Less than 24 Consecutive Hours, Continuous Positive Airway Pressure (ICD-10-PCS; 2016-11-07)
PROC: 5A09457 Assistance with Respiratory Ventilation, 24-96 Consecutive Hours, Continuous Positive Airway Pressure (ICD-10-PCS; 2016-11-08)
PROC: B543ZZA Ultrasonography of Right Jugular Veins, Guidance (ICD-10-PCS; principal; 2016-11-09)
PROC: 05HM33Z Insertion of Infusion Device into Right Internal Jugular Vein, Percutaneous Approach (ICD-10-PCS; principal; 2016-11-09)
PROC: 5A1D60Z (ICD-10-PCS; 2016-11-09)
PROC: 4A023N7 Measurement of Cardiac Sampling and Pressure, Left Heart, Percutaneous Approach (ICD-10-PCS; 2016-11-13)
PROC: B2111ZZ Fluoroscopy of Multiple Coronary Arteries using Low Osmolar Contrast (ICD-10-PCS; 2016-11-13)
PROC: 0DJD8ZZ Inspection of Lower Intestinal Tract, Via Natural or Artificial Opening Endoscopic (ICD-10-PCS; 2016-11-16)
PROC: 0DJ08ZZ Inspection of Upper Intestinal Tract, Via Natural or Artificial Opening Endoscopic (ICD-10-PCS; 2016-11-16)
PROC: 02H633Z Insertion of Infusion Device into Right Atrium, Percutaneous Approach (ICD-10-PCS; 2016-11-20)
PROC: B2141ZZ Fluoroscopy of Right Heart using Low Osmolar Contrast (ICD-10-PCS; 2016-11-20)
PROC: 0JH63XZ Insertion of Tunneled Vascular Access Device into Chest Subcutaneous Tissue and Fascia, Percutaneous Approach (ICD-10-PCS; 2016-11-20)
PROC: 05PYX3Z Removal of Infusion Device from Upper Vein, External Approach (ICD-10-PCS; 2016-11-20)
PROC: 02713EZ Dilation of Coronary Artery, Two Arteries with Two Intraluminal Devices, Percutaneous Approach (ICD-10-PCS; 2016-11-23)
DX: I21.4 Non-ST elevation (NSTEMI) myocardial infarction (principal); J96.01 Acute respiratory failure with hypoxia; J18.9 Pneumonia, unspecified organism; J81.0 Acute pulmonary edema; I50.43 Acute on chronic combined systolic (congestive) and diastolic (congestive) heart failure; N17.9 Acute kidney failure, unspecified; N18.4 Chronic kidney disease, stage 4 (severe); I13.0 Hypertensive heart and chronic kidney disease with heart failure and stage 1 through stage 4 chronic kidney disease, or unspecified chronic kidney disease; E87.2 Acidosis; I42.9 Cardiomyopathy, unspecified; K64.9 Unspecified hemorrhoids; K29.70 Gastritis, unspecified, without bleeding; M81.0 Age-related osteoporosis without current pathological fracture; E11.22 Type 2 diabetes mellitus with diabetic chronic kidney disease; D69.6 Thrombocytopenia, unspecified; D64.9 Anemia, unspecified; E87.5 Hyperkalemia; G30.9 Alzheimer's disease, unspecified; F02.80 Dementia in other diseases classified elsewhere, unspecified severity, without behavioral disturbance, psychotic disturbance, mood disturbance, and anxiety; Z90.710 Acquired absence of both cervix and uterus; Z86.73 Personal history of transient ischemic attack (TIA), and cerebral infarction without residual deficits; Z82.49 Family history of ischemic heart disease and other diseases of the circulatory system; Z79.4 Long term (current) use of insulin
CPT/HCPCS: 36415; 36556; 36558; 36600; 71010; 71020; 76770; 76937; 77001; 78582; 80048; 80053; 80061; 81001; 82140; 82270; 82550; 82553; 82570; 82607; 82728; 82747; 82803; 82962; 83036; 83550; 83880; 84156; 84443; 84484; 85007; 85014; 85018; 85025; 85027; 85045; 85049; 85347; 85379; 85520; 85610; 85730; 86022; 86140; 86706; 86803; 86850; 86900; 86901; 87040; 87045; 92928; 92929; 93005; 93010; 93306; 93458; 94640; 94660; 94760; 96365; 96375; 96376; A9270-GY; A9540; A9558; C1750; C1751; C1752; C1760; C1769; C1876; C1887; C1894; J0583; J0690; J1200; J1644; J1940; J1956; J2250; J2260; J2370; J2543; J2704; J2920; J2930; J3010; J3475; J7030; J7040; J7050; Q9967

== ENCOUNTER 2016-12-02 17:39 | Inpatient (IN) | payer MEDICARE ==
--- NOTE | 2016-12-02 20:36 | Emergency Department Report ---
ED General Adult HPI - General Chief complaint: Recheck/Abnormal Lab/Rx Stated complaint: LBP Time Seen by Provider: 12/02/16 18:41 Source: EMS Mode of arrival: Stretcher Limitations: Altered Mental Status - History of Present Illness Initial comments: Patient is a 71-year-old female who has end-stage renal disease who presents with abnormal blood level. There is obtained by patient's daughter. They state that they are here because she has dialysis Wednesday. She was about to get dialysis on the blood work showed that she had a hemoglobin of 6.5. They told her that she come and get dialysis as an outpatient and they had to go to the emergency department. Patient's is having no symptoms she just states that she feels weak. Her weakness severity is mild. It's worse with exertion and better with rest. It is not associated with any signs or symptoms. She denies having any blood in her stool or any dark stools. - Related Data Home Medications Medication Instructions Recorded Confirmed Last Taken Alendronate Sodium [Fosamax] 70 mg PO QWEEK #0 02/25/15 12/02/16 1 Day Ago Calcium Carbonate/Vitamin D3 1 tab PO DAILY #0 02/25/15 12/02/16 1 Day Ago [Calcium 500-Vit D3 200 Tablet] Hydralazine HCl [Apresoline TAB] 50 mg PO TID #0 02/25/15 12/02/16 1 Day Ago Potassium Chloride [Klor-Con M20] 20 meq PO DAILY 02/25/15 12/02/16 1 Day Ago Valsartan 320 mg PO DAILY 02/25/15 12/02/16 1 Day Ago amLODIPine [Norvasc] 10 mg PO DAILY #0 02/25/15 12/02/16 1 Day Ago Previous Rx's Medication Instructions Recorded Last Taken Type traMADol [Ultram 50 MG tab] 50 mg PO Q4HR PRN #12 tablet 03/25/16 1 Day Ago Rx Aspirin [Aspirin BABY CHEW TAB] 81 mg PO QDAY tab.chew 11/25/16 Unknown Rx AtorvaSTATin [Lipitor] 40 mg PO QHS tablet 11/25/16 Unknown Rx Carvedilol [Coreg] 50 mg PO BID tablet 11/25/16 Unknown Rx Clopidogrel [Plavix] 75 mg PO QDAY tablet 11/25/16 Unknown Rx ISOSORBIDE MONOnitrate [Imdur ER] 30 mg PO QDAY tablet 11/25/16 Unknown Rx Ipratropium/Albuterol Sulfate 1 ampul IH TIDRT ampul.neb 11/25/16 Unknown Rx [DUONEB *Not for PRN Use*] Memantine Xr [Namenda Xr] 14 mg PO QDAY cap 11/25/16 Unknown Rx Pantoprazole [Protonix TAB] 40 mg PO QDAY tablet 11/25/16 Unknown Rx Sennosides/Docusate [Senokot S] 2 tab PO QHS tablet 11/25/16 Unknown Rx Allergies Allergy/AdvReac Type Severity Reaction Status Date / Time Beef AdvReac Unknown Uncoded 11/19/16 14:52 ED Review of Systems ROS: Stated complaint: LBP Other details as noted in HPI Constitutional: weakness Eyes: denies: eye pain, eye discharge, vision change ENT: denies: ear pain, throat pain Respiratory: denies: cough, shortness of breath, wheezing Cardiovascular: denies: chest pain, palpitations Endocrine: no symptoms reported Gastrointestinal: denies: abdominal pain, nausea, diarrhea Genitourinary: denies: urgency, dysuria, discharge Musculoskeletal: denies: back pain, joint swelling, arthralgia Skin: denies: rash, lesions Neurological: denies: headache, weakness, paresthesias Psychiatric: denies: anxiety, depression Hematological/Lymphatic: denies: easy bleeding, easy bruising ED Past Medical Hx - Past Medical History Previous Medical History?: Yes Hx Hypertension: Yes (EF 10-15%, LVH) Hx Heart Attack/AMI: Yes (NSTEMI) Hx Renal Disease: Yes (Stage 3 CKD) Hx Sickle Cell Disease: No Hx Asthma: No Hx COPD: No Hx Dementia: Yes - Surgical History Past Surgical History?: Yes Additional Surgical History: Hysterectomy - Social History Smoking Status: Unknown if ever smoked Substance Use Type: None - Medications Home Medications: Home Medications Medication Instructions Recorded Confirmed Last Taken Type Alendronate Sodium [Fosamax] 70 mg PO QWEEK #0 02/25/15 12/02/16 1 Day Ago History Calcium Carbonate/Vitamin D3 1 tab PO DAILY #0 02/25/15 12/02/16 1 Day Ago History [Calcium 500-Vit D3 200 Tablet] Hydralazine HCl [Apresoline TAB] 50 mg PO TID #0 02/25/15 12/02/16 1 Day Ago History Potassium Chloride [Klor-Con M20] 20 meq PO DAILY 02/25/15 12/02/16 1 Day Ago History Valsartan 320 mg PO DAILY 02/25/15 12/02/16 1 Day Ago History amLODIPine [Norvasc] 10 mg PO DAILY #0 02/25/15 12/02/16 1 Day Ago History traMADol [Ultram 50 MG tab] 50 mg PO Q4HR PRN #12 tablet 03/25/16 12/02/16 1 Day Ago Rx Aspirin [Aspirin BABY CHEW TAB] 81 mg PO QDAY tab.chew 11/25/16 12/02/16 Unknown Rx AtorvaSTATin [Lipitor] 40 mg PO QHS tablet 11/25/16 12/02/16 Unknown Rx Carvedilol [Coreg] 50 mg PO BID tablet 11/25/16 12/02/16 Unknown Rx Clopidogrel [Plavix] 75 mg PO QDAY tablet 11/25/16 12/02/16 Unknown Rx ISOSORBIDE MONOnitrate [Imdur ER] 30 mg PO QDAY tablet 11/25/16 12/02/16 Unknown Rx Ipratropium/Albuterol Sulfate 1 ampul IH TIDRT ampul.neb 11/25/16 12/02/16 Unknown Rx [DUONEB *Not for PRN Use*] Memantine Xr [Namenda Xr] 14 mg PO QDAY cap 11/25/16 12/02/16 Unknown Rx Pantoprazole [Protonix TAB] 40 mg PO QDAY tablet 11/25/16 12/02/16 Unknown Rx Sennosides/Docusate [Senokot S] 2 tab PO QHS tablet 11/25/16 12/02/16 Unknown Rx ED Physical Exam - General Limitations: Altered Mental Status General appearance: alert, lethargic - Head Head exam: Present: atraumatic, normocephalic - Eye Eye exam: Present: normal appearance - ENT ENT exam: Present: mucous membranes moist - Neck Neck exam: Present: normal inspection - Respiratory Respiratory exam: Present: normal lung sounds bilaterally. Absent: respiratory distress - Cardiovascular Cardiovascular Exam: Present: regular rate, normal rhythm. Absent: systolic murmur, diastolic murmur, rubs, gallop - GI/Abdominal GI/Abdominal exam: Present: soft. Absent: distended, tenderness - Extremities Exam Extremities exam: Present: full ROM - Back Exam Back exam: Present: normal inspection - Neurological Exam Neurological exam: Present: alert, CN II-XII intact, other (she was oriented to person and place) - Psychiatric Psychiatric exam: Present: normal affect, normal mood ED Course Vital Signs 12/02/16 12/02/16 12/02/16 17:55 17:57 18:01 Temperature 98.5 F Pulse Rate 78 86 Respiratory 20 13 Rate Blood Pressure 93/46 103/51 O2 Sat by Pulse 98 98 98 Oximetry 12/02/16 12/02/16 12/02/16 19:00 20:00 21:00 Temperature Pulse Rate 80 75 Respiratory 16 21 18 Rate Blood Pressure 115/55 91/37 123/51 O2 Sat by Pulse 97 93 93 Oximetry 12/02/16 12/02/16 12/02/16 22:00 23:00 23:03 Temperature Pulse Rate 82 83 83 Respiratory 13 15 21 Rate Blood Pressure 120/59 130/58 130/58 O2 Sat by Pulse 95 97 Oximetry 12/03/16 12/03/16 12/03/16 00:00 00:55 01:10 Temperature 98.6 F 98.5 F Pulse Rate 77 95 H 80 Respiratory 19 22 21 Rate Blood Pressure 123/55 123/55 117/54 O2 Sat by Pulse 95 95 96 Oximetry 12/03/16 01:40 Temperature 98.7 F Pulse Rate 79 Respiratory 18 Rate Blood Pressure 122/56 O2 Sat by Pulse 97 Oximetry - Consultations Consultation #1: 12/02/16 21:[address] Patton She states that I should consult with Dr. Brown the [employer] Consultation #2: 12/02/16 22:39 I spoke with he states that it is okay to give the patient 1 unit of blood since the patient still makes urine but before she gets 1 unit of blood she will need to get 80 mg of lasix and she will also be admitted. ED Medical Decision Making - Lab Data Result diagrams: 12/02/16 20:28 12/02/16 20:28 Lab Results 12/02/16 12/02/16 12/02/16 Range/Units 20:25 20:28 20:28 WBC 2.4 L (4.5-11.0) K/mm3 RBC 2.06 L (3.65-5.03) M/mm3 Hgb 6.7 L (10.1-14.3) gm/dl Hct 20.8 L (30.3-42.9) % MCV 101 H (79-97) fl MCH 33 H (28-32) pg MCHC 32 (30-34) % RDW 16.3 H (13.2-15.2) % Plt Count 82 L (140-440) K/mm3 Lymph % (Auto) 28.7 (13.4-35.0) % [place] % (Auto) 10.0 H (0.0-7.3) % Eos % (Auto) 3.7 (0.0-4.3) % Baso % (Auto) 0.4 (0.0-1.8) % Lymph # 0.7 L (1.2-5.4) K/mm3 [place] # 0.2 (0.0-0.8) K/mm3 Eos # 0.1 (0.0-0.4) K/mm3 Baso # 0.0 (0.0-0.1) K/mm3 Seg Neutrophils % 57.2 (40.0-70.0) % Seg Neutrophils # 1.4 L (1.8-7.7) K/mm3 PT 13.7 (12.2-14.9) Sec. INR 1.00 (0.87-1.13) APTT 26.3 (24.2-36.6) Sec. Sodium (137-145) mmol/L Potassium (3.6-5.0) mmol/L Chloride (98-107) mmol/L Carbon Dioxide (22-30) mmol/L Anion Gap mmol/L BUN (7-17) mg/dL Creatinine (0.7-1.2) mg/dL Estimated GFR ml/min BUN/Creatinine Ratio % Glucose (65-100) mg/dL Calcium (8.4-10.2) mg/dL Total Bilirubin (0.1-1.2) mg/dL AST (5-40) units/L ALT (7-56) units/L Alkaline Phosphatase (35-129) units/L Troponin T (0.00-0.029) ng/mL NT-Pro-B Natriuret Pep (0-900) pg/mL Total Protein (6.3-8.2) g/dL Albumin (3.9-5) g/dL Albumin/Globulin Ratio % Triglycerides (2-149) mg/dL Cholesterol (50-199) mg/dL LDL Cholesterol Direct (50-130) mg/dL HDL Cholesterol (40-59) mg/dL Cholesterol/HDL Ratio % Blood Type O POSITIVE Antibody Screen Negative Crossmatch See Detail 12/02/16 12/02/16 12/02/16 Range/Units 20:28 20:44 20:44 WBC (4.5-11.0) K/mm3 RBC (3.65-5.03) M/mm3 Hgb (10.1-14.3) gm/dl Hct (30.3-42.9) % MCV (79-97) fl MCH (28-32) pg MCHC (30-34) % RDW (13.2-15.2) % Plt Count (140-440) K/mm3 Lymph % (Auto) (13.4-35.0) % [place] % (Auto) (0.0-7.3) % Eos % (Auto) (0.0-4.3) % Baso % (Auto) (0.0-1.8) % Lymph # (1.2-5.4) K/mm3 [place] # (0.0-0.8) K/mm3 Eos # (0.0-0.4) K/mm3 Baso # (0.0-0.1) K/mm3 Seg Neutrophils % (40.0-70.0) % Seg Neutrophils # (1.8-7.7) K/mm3 PT (12.2-14.9) Sec. INR (0.87-1.13) APTT (24.2-36.6) Sec. Sodium 141 (137-145) mmol/L Potassium 4.3 (3.6-5.0) mmol/L Chloride 106.2 (98-107) mmol/L Carbon Dioxide 24 (22-30) mmol/L Anion Gap 15 mmol/L BUN 27 H (7-17) mg/dL Creatinine 3.0 H (0.7-1.2) mg/dL Estimated GFR 19 ml/min BUN/Creatinine Ratio 9.00 % Glucose 121 H (65-100) mg/dL Calcium 6.9 L (8.4-10.2) mg/dL Total Bilirubin 0.30 (0.1-1.2) mg/dL AST 24 (5-40) units/L ALT 22 (7-56) units/L Alkaline Phosphatase 89 (35-129) units/L Troponin T 0.955 H* (0.00-0.029) ng/mL NT-Pro-B Natriuret Pep 59570 H (0-900) pg/mL Total Protein 4.6 L (6.3-8.2) g/dL Albumin 2.5 L (3.9-5) g/dL Albumin/Globulin Ratio 1.2 % Triglycerides 127 (2-149) mg/dL Cholesterol 87 (50-199) mg/dL LDL Cholesterol Direct 22 L (50-130) mg/dL HDL Cholesterol 40 (40-59) mg/dL Cholesterol/HDL Ratio 2.17 % Blood Type Antibody Screen Crossmatch - EKG Data -: EKG Interpreted by Me - EKG Data 12/03/16 02:09 Patient has LVH with QRS S widening nonspecific T-wave abnormality sinus rhythm with PVCs - Radiology Data Radiology results: image reviewed Chest x-ray shows findings of cardiomegaly and right-sided port. - Medical Decision Making Chief medical diagnosis: Anemia secondary to end-stage renal disease Differential medical diagnosis: N STEMI, metabolic abnormality, hypokalemia Will get EKG, troponin, BNP, CBC, CMP Reviewing patient's old history patient had a cardiac cath done and has a history of elevated troponins. I will give patient an oral dose of aspirin. Patient also will get Lasix before she gets one unit of blood. Patient is at risk for a life-threatening condition and will need IV blood transfusion. Will also admit patient to monitored telemetry and patient also needs a nephrology consult. Critical Care Time: Yes Critical care time in (mins) excluding proc time.: 35 Critical care attestation.: If time is entered above; I have spent that time in minutes in the direct care of this critically ill patient, excluding procedure time. Time spent with patient 20 minutes Time spent talking to consultants 5 minutes Time laboratory findings 5 minutes Time spent reviewing old records 5 minutes ED Disposition Clinical Impression: End stage renal disease Anemia Qualifiers: Anemia type: unspecified type Qualified Code(s): D64.9 - Anemia, unspecified Disposition: DC-09 OP ADMIT IP TO THIS HOSP Is pt being admited?: Yes Does the pt Need Aspirin: No Condition: Stable
[2016-12-02 20:48] LABS: Basophils % (Auto) 0.4 % (0.0-1.8); Eosinophils % (Auto) 3.7 % (0.0-4.3); Hematocrit 20.8 % (30.3-42.9); Hemoglobin 6.7 gm/dl (10.1-14.3); Mean Corpuscular HGB Conc 32 % (30-34); Mean Corpuscular Hemoglobin 33 pg (28-32); Mean Corpuscular Volume 101 fl (79-97); Red Blood Count 2.06 M/mm3 (3.65-5.03); Red Cell Distribution Width 16.3 % (13.2-15.2); White Blood Count 2.4 K/mm3 (4.5-11.0)
[2016-12-02 20:49] LABS: Platelet Count 82 K/mm3 (140-440)
[2016-12-02 21:01] LABS: Partial Thromboplastin Time 26.3 Sec. (24.2-36.6)
[2016-12-02 21:02] LABS: Albumin 2.5 g/dL (3.9-5); Albumin/Globulin Ratio 1.2 %; Bilirubin,Total 0.3 mg/dL (0.1-1.2); Calcium 6.9 mg/dL (8.4-10.2); Chloride 106.2 mmol/L (98-107); Potassium 4.3 mmol/L (3.6-5.0); Total Protein 4.6 g/dL (6.3-8.2)
[2016-12-02] MEDS ORDERED: ASPIRIN PO ONE (21:37)
[2016-12-02] MEDS ORDERED: LASIX IV ONE (21:59)
[2016-12-02] MEDS ORDERED: NACL 0.9% 500 ML 500 ML IV ONE (22:00)
--- NOTE | 2016-12-02 22:20 | Progress Note ---
Hospitalist Physical - Constitutional Vitals: Temp Pulse Resp BP Pulse Ox 98.5 F 75 18 123/51 93 12/02/16 17:57 12/02/16 21:00 12/02/16 21:00 12/02/16 21:00 12/02/16 21:00 Results - Labs CBC & Chem 7: 12/02/16 20:28 12/02/16 20:28 Labs: Laboratory Last Values WBC 2.4 K/mm3 (4.5-11.0) L 12/02/16 20:28 RBC 2.06 M/mm3 (3.65-5.03) L 12/02/16 20:28 Hgb 6.7 gm/dl (10.1-14.3) L 12/02/16 20:28 Hct 20.8 % (30.3-42.9) L 12/02/16 20:28 MCV 101 fl (79-97) H 12/02/16 20:28 MCH 33 pg (28-32) H 12/02/16 20:28 MCHC 32 % (30-34) 12/02/16 20:28 RDW 16.3 % (13.2-15.2) H 12/02/16 20:28 Plt Count 82 K/mm3 (140-440) L 12/02/16 20:28 Lymph % (Auto) 28.7 % (13.4-35.0) 12/02/16 20:28 [place] % (Auto) 10.0 % (0.0-7.3) H 12/02/16 20:28 Eos % (Auto) 3.7 % (0.0-4.3) 12/02/16 20:28 Baso % (Auto) 0.4 % (0.0-1.8) 12/02/16 20:28 Lymph # 0.7 K/mm3 (1.2-5.4) L 12/02/16 20:28 [place] # 0.2 K/mm3 (0.0-0.8) 12/02/16 20:28 Eos # 0.1 K/mm3 (0.0-0.4) 12/02/16 20:28 Baso # 0.0 K/mm3 (0.0-0.1) 12/02/16 20:28 Seg Neutrophils % 57.2 % (40.0-70.0) 12/02/16 20:28 Seg Neutrophils # 1.4 K/mm3 (1.8-7.7) L 12/02/16 20:28 PT 13.7 Sec. (12.2-14.9) 12/02/16 20:28 INR 1.00 (0.87-1.13) 12/02/16 20:28 APTT 26.3 Sec. (24.2-36.6) 12/02/16 20:28 Sodium 141 mmol/L (137-145) 12/02/16 20:28 Potassium 4.3 mmol/L (3.6-5.0) 12/02/16 20:28 Chloride 106.2 mmol/L (98-107) 12/02/16 20:28 Carbon Dioxide 24 mmol/L (22-30) 12/02/16 20:28 Anion Gap 15 mmol/L 12/02/16 20:28 BUN 27 mg/dL (7-17) H 12/02/16 20:28 Creatinine 3.0 mg/dL (0.7-1.2) H 12/02/16 20:28 Estimated GFR 19 ml/min 12/02/16 20:28 BUN/Creatinine Ratio 9.00 % 12/02/16 20:28 Glucose 121 mg/dL (65-100) H 12/02/16 20:28 Calcium 6.9 mg/dL (8.4-10.2) L 12/02/16 20:28 Total Bilirubin 0.30 mg/dL (0.1-1.2) 12/02/16 20:28 AST 24 units/L (5-40) 12/02/16 20:28 ALT 22 units/L (7-56) 12/02/16 20:28 Alkaline Phosphatase 89 units/L (35-129) 12/02/16 20:28 Troponin T 0.955 ng/mL (0.00-0.029) H* 12/02/16 20:44 NT-Pro-B Natriuret Pep 75131 pg/mL (0-900) H 12/02/16 20:44 Total Protein 4.6 g/dL (6.3-8.2) L 12/02/16 20:28 Albumin 2.5 g/dL (3.9-5) L 12/02/16 20:28 Albumin/Globulin Ratio 1.2 % 12/02/16 20:28 Triglycerides 127 mg/dL (2-149) 12/02/16 20:44 Cholesterol 87 mg/dL (50-199) 12/02/16 20:44 LDL Cholesterol Direct 22 mg/dL (50-130) L 12/02/16 20:44 HDL Cholesterol 40 mg/dL (40-59) 12/02/16 20:44 Cholesterol/HDL Ratio 2.17 % 12/02/16 20:44 Blood Type O POSITIVE 12/02/16 20:25 Antibody Screen Negative 12/02/16 20:25 Crossmatch See Detail 12/02/16 20:25
[2016-12-02] MEDS ORDERED: MORPHINE IV PRN (23:26)
[2016-12-02] MEDS ORDERED: DULCOLAX PR PRN (23:26)
[2016-12-02] MEDS ORDERED: ZOFRAN IV PRN (23:26)
[2016-12-02] MEDS ORDERED: TYLENOL PO PRN (23:26)
--- NOTE | 2016-12-03 02:20 | Admit Criteria Form ---
Admission Criteria Documentation: RENAL FAILURE, CHRONIC Clinical Indications for Admission to Inpatient Care (Place 'X' for any and all applicable criteria): Admission is indicated for ANY ONE of the following (1)(2)(3)(4)(5): [X]I. Inpatient admission required rather than observation care (Use Renal Failure, Chronic: Observation Care Criteria as appropriate) because of ANY ONE of the following: [ ]a) Volume overload or uremic symptoms (eg, clinically significant pulmonary edema, hypertension, pericarditis, acidosis) too severe for, or not responsive (eg, for over 24 hours) to emergency department or observation care dialysis or treatment regimen (11) [ ]b) Hemodynamic instability that is severe or persistent [ ]c) Respiratory distress that is severe or persistent (11) [ ]d) Clinically significant electrolyte abnormality that requires inpatient care (eg,hyperkalemia with severe ECG findings)[B] [ ]e) Supplement O2 or respiratory therapy for over 24hrs that is performable only in acute inpatient setting [ ]f) Continuous IV infusion of anticoagulation, platelet inhibitor, vasoactive, or Antiarrhythmic medication (15), [ ]g) Pulmonary artery catheter monitoring [ ]h) Temporary pacemaker placement [ ]i) Emergent pericardiocentesis [X]j) Other condition, treatment or monitoring requiring inpatient admission [ ]II. Unexplained syncope [A] [ ]III. Recurrent seizures [ ]IV. Severe infections not treatable in outpatient setting (eg, peritonitis)(9 ) [ ]V. Cardiac arrhythmias of immediate concern [ ]. Encephalopathy [ ]VII.Bleeding abnormalities (eg, platelet dysfunction) with active (eg, gastrointestinal) bleeding Extended stay beyond goal length of stay may be needed for (3)(4)(35)(36): [ ]a) Continuing uremic complications [ ]b) Comorbidities or complications The original [employer] content created by [employer] has been revised. The portions of the content which have been revised are identified through the use of italic text or in bold, and [email or web address] [employer] has neither reviewed nor approved the modified material. All other unmodified content is copyright [employer]. Please see references footnoted in the original [facility] edition 2016 Admission Criteria Met: Yes
--- NOTE | 2016-12-03 05:16 | History and Physical Report ---
History of Present Illness Date of examination: 12/02/16 Date of admission: 12/02/16 23:26 Chief complaint: Generalized weakness, low hemoglobin History of present illness: Patient is 71-year-old with history of recent non-STEMI, hypertension, hyperlipidemia, dementia and kidney disease. Was sent in from dialysis center because of low hemoglobin of 6.7. She complains of generalized weakness. She went for dialysis today hemoglobin was 6.7. Dialysis was not done and she was sent to the emergency department for evaluation. Her only complaint is generalized weakness. She denies chest pain or shortness of breath. No overt rectal bleeding. Patient was discharged home from the hospital last week after NSTEMI. Will admit for further workup and management and blood transfusion. Past History Past Medical History: acute AL, CAD, dialysis, hypertension, hyperlipidemia, renal failure, other (GI bleed,thrombocytopenia, dementia) Past Surgical History: hysterectomy Social history: full code. denies: smoking, alcohol abuse Family history: hypertension Medications and Allergies Allergies Allergy/AdvReac Type Severity Reaction Status Date / Time Beef AdvReac Unknown Uncoded 11/19/16 14:52 Home Medications Medication Instructions Recorded Confirmed Last Taken Type Alendronate Sodium [Fosamax] 70 mg PO QWEEK #0 02/25/15 12/02/16 1 Day Ago History Calcium Carbonate/Vitamin D3 1 tab PO DAILY #0 02/25/15 12/02/16 1 Day Ago History [Calcium 500-Vit D3 200 Tablet] Hydralazine HCl [Apresoline TAB] 50 mg PO TID #0 02/25/15 12/02/16 1 Day Ago History Potassium Chloride [Klor-Con M20] 20 meq PO DAILY 02/25/15 12/02/16 1 Day Ago History Valsartan 320 mg PO DAILY 02/25/15 12/02/16 1 Day Ago History amLODIPine [Norvasc] 10 mg PO DAILY #0 02/25/15 12/02/16 1 Day Ago History traMADol [Ultram 50 MG tab] 50 mg PO Q4HR PRN #12 tablet 03/25/16 12/02/16 1 Day Ago Rx Aspirin [Aspirin BABY CHEW TAB] 81 mg PO QDAY tab.chew 11/25/16 12/02/16 Unknown Rx AtorvaSTATin [Lipitor] 40 mg PO QHS tablet 11/25/16 12/02/16 Unknown Rx Carvedilol [Coreg] 50 mg PO BID tablet 11/25/16 12/02/16 Unknown Rx Clopidogrel [Plavix] 75 mg PO QDAY tablet 11/25/16 12/02/16 Unknown Rx ISOSORBIDE MONOnitrate [Imdur ER] 30 mg PO QDAY tablet 11/25/16 12/02/16 Unknown Rx Ipratropium/Albuterol Sulfate 1 ampul IH TIDRT ampul.neb 11/25/16 12/02/16 Unknown Rx [DUONEB *Not for PRN Use*] Memantine Xr [Namenda Xr] 14 mg PO QDAY cap 11/25/16 12/02/16 Unknown Rx Pantoprazole [Protonix TAB] 40 mg PO QDAY tablet 11/25/16 12/02/16 Unknown Rx Sennosides/Docusate [Senokot S] 2 tab PO QHS tablet 11/25/16 12/02/16 Unknown Rx Active Meds: Active Medications Acetaminophen (Tylenol) 650 mg PO Q4H PRN PRN Reason: Pain MILD(1-3)/Fever >100.5/PAREKH Albuterol/Ipratropium (Duoneb *Not For Prn Use*) 1 ampul IH TIDRT RADHA Amlodipine Besylate (Norvasc) 10 mg PO DAILY RADHA Aspirin (Baby Aspirin) 81 mg PO QDAY RADHA Atorvastatin Calcium (Lipitor) 40 mg PO QHS RADHA Bisacodyl (Dulcolax) 10 mg NC QDAY PRN PRN Reason: Constipation unrelieved by MOM Calcium/Vitamin D ([place] D 500 Mg-200 Unit) 1 each PO DAILY RADHA Carvedilol (Coreg) 50 mg PO BID RADHA Clopidogrel Bisulfate (Plavix) 75 mg PO QDAY RADHA Heparin Sodium (Porcine) (Heparin) 5,000 unit SUB-Q Q8HR RADHA Hydralazine HCl (Apresoline) 50 mg PO TID RADHA Isosorbide Mononitrate (Imdur) 30 mg PO QDAY RADHA Memantine (Namenda Xr) 14 mg PO QDAY RADHA Morphine Sulfate (Morphine) 2 mg IV Q4H PRN PRN Reason: Pain, Moderate (4-6) Ondansetron HCl (Zofran) 4 mg IV Q6H PRN PRN Reason: nausea or vomiting Pantoprazole Sodium (Protonix) 40 mg PO QDAY PENDING SALE TO [facility] Senna/Docusate Sodium (Senokot S) 2 tab PO QHS RADHA Tramadol HCl (Ultram) 50 mg PO Q4HR PRN PRN Reason: Pain Valsartan (Diovan) 320 mg PO QDAY PENDING SALE TO [facility] Review of Systems ROS unobtainable: due to mental status Exam - Physical Exam Narrative exam: Gen appearance: Not in acute distress HEENT: normocephalic,atraumatic Neck:supple, no JVD Lungs: clear to auscultation bilaterally, no crackles or wheezes Heart :S1 and S2 regular, no murmurs, rubs or gallop Abdomen: Soft, non tender, non-distended, normal bowel sounds, Extremities :no edema, no clubbing or cyanosis Neuro: Awake, alert,confused from dementia - Constitutional Vitals: Temp Pulse Resp BP Pulse Ox 98.4 F 76 18 123/60 96 12/03/16 02:10 12/03/16 02:10 12/03/16 02:10 12/03/16 02:10 12/03/16 02:10 Results - Labs CBC & Chem 7: 12/02/16 20:28 12/02/16 20:28 Assessment and Plan Anemia with hemoglobin 6.7. this may be secondary to anemia from renal disease. To rule out GI bleed. Admit to medical floor. Transfuse 1 unit PRBC today we'll recheck hemoglobin in the morning. She may need further PRBC transfusion. Get stool occult blood. Acute on CKD on dialysis. Consult nephrology Coronary artery disease status post recent NSTEMI 1 week ago Hypertension. BP stable. Resume home meds Hyperlipidemia Dementia. Supportive care, resume meds. Full CODE STATUS DVT prophylaxis with heparin.
[2016-12-03 05:32] LABS: Basophils % (Auto) 0.4 % (0.0-1.8); Eosinophils % (Auto) 5.2 % (0.0-4.3); Hematocrit 23.2 % (30.3-42.9); Hemoglobin 7.6 gm/dl (10.1-14.3); Mean Corpuscular HGB Conc 33 % (30-34); Mean Corpuscular Hemoglobin 33 pg (28-32); Mean Corpuscular Volume 99 fl (79-97); Red Blood Count 2.35 M/mm3 (3.65-5.03); Red Cell Distribution Width 15.8 % (13.2-15.2); White Blood Count 2.7 K/mm3 (4.5-11.0)
[2016-12-03 05:38] LABS: Platelet Count 76 K/mm3 (140-440)
[2016-12-03 05:52] LABS: BUN/Creatinine Ratio 9.06; Calcium 6.8 mg/dL (8.4-10.2); Chloride 104.8 mmol/L (98-107)
[2016-12-03] MEDS: HEPARIN SUB-Q SCH ×3 (06:42→22:49)
--- NOTE | 2016-12-03 07:24 | XRay Report ---
Single view chest: Compared to 11/25/16. History: Evaluation for pulmonary edema. Findings: Marked cardiomegaly. Trachea is midline. Stable right large bore venous catheter. No consolidation, pneumothorax or pleural effusion. Impression: No acute cardiopulmonary findings
[2016-12-03] MEDS: DUONEB *Not for PRN Use IH SCH ×2 (07:56→14:37)
[2016-12-03] MEDS ORDERED: NON-FORMULARY (Hydralazine Hcl [Apresoline Tab] 50 MG) PO SCH (08:00)
[2016-12-03] MEDS ORDERED: VALSARTAN 320 MG PO SCH (10:00)
[2016-12-03] MEDS: PLAVIX PO SCH (10:19)
[2016-12-03] MEDS: APRESOLINE PO SCH ×3 (10:19→20:00)
[2016-12-03] MEDS: NAMENDA XR PO SCH (10:20)
[2016-12-03] MEDS: IMDUR PO SCH (10:20)
[2016-12-03] MEDS: OYSCO D 500 MG-200 UNIT PO SCH (10:20)
[2016-12-03] MEDS: COREG PO SCH ×2 (10:20→22:47)
[2016-12-03] MEDS: BABY ASPIRIN PO SCH (10:21)
[2016-12-03] MEDS: NORVASC PO SCH (10:21)
[2016-12-03] MEDS: PROTONIX PO SCH (10:22)
[2016-12-03] MEDS: DIOVAN PO SCH (10:23)
--- NOTE | 2016-12-03 11:10 | Progress Note ---
Assessment and Plan Assessment and plan: Anemia. Patient with hemoglobin of 6.7 on admission. Etiology may be secondary to anemia from renal disease. GI consultation to rule out GI etiology. Patient is status post transfusion 1 unit PRBC today. We'll recheck hemoglobin in the morning. She may need further PRBC transfusion. Follow-up stool occult blood. Acute on CKD on dialysis. Nephrology following. Coronary artery disease status post recent NSTEMI 1 week ago. Cardiology consultation Hypertension. BP stable. Resume home meds Hyperlipidemia Dementia. Supportive care, resume meds. Full CODE STATUS DVT prophylaxis with heparin. History Interval history: No new issues overnight. Hospitalist Physical - Constitutional Vitals: Temp Pulse Resp BP Pulse Ox 97.9 F 74 18 154/62 96 12/03/16 08:00 12/03/16 10:23 12/03/16 08:00 12/03/16 10:23 12/03/16 08:00 General appearance: Present: no acute distress, well-nourished - EENT Eyes: Present: PERRL, EOM intact ENT: hearing intact, clear oral mucosa, dentition normal - Neck Neck: Present: supple, normal ROM - Respiratory Respiratory effort: normal Respiratory: bilateral: CTA - Cardiovascular Rhythm: regular Heart Sounds: Present: S1 & S2. Absent: gallop, rub - Extremities Extremities: no ischemia, No edema, Full ROM - Abdominal General gastrointestinal: soft, non-tender, non-distended, normal bowel sounds - Integumentary Integumentary: Present: clear, warm, dry - Neurologic Neurologic: CNII-XII intact, moves all extremities Results - Labs CBC & Chem 7: 12/03/16 05:03 12/03/16 05:03 Labs: Laboratory Last Values WBC 2.7 K/mm3 (4.5-11.0) L 12/03/16 05:03 RBC 2.35 M/mm3 (3.65-5.03) L 12/03/16 05:03 Hgb 7.6 gm/dl (10.1-14.3) L 12/03/16 05:03 Hct 23.2 % (30.3-42.9) L 12/03/16 05:03 MCV 99 fl (79-97) H 12/03/16 05:03 MCH 33 pg (28-32) H 12/03/16 05:03 MCHC 33 % (30-34) 12/03/16 05:03 RDW 15.8 % (13.2-15.2) H 12/03/16 05:03 Plt Count 76 K/mm3 (140-440) L 12/03/16 05:03 Lymph % (Auto) 39.9 % (13.4-35.0) H 12/03/16 05:03 [place] % (Auto) 11.8 % (0.0-7.3) H 12/03/16 05:03 Eos % (Auto) 5.2 % (0.0-4.3) H 12/03/16 05:03 Baso % (Auto) 0.4 % (0.0-1.8) 12/03/16 05:03 Lymph # 1.1 K/mm3 (1.2-5.4) L 12/03/16 05:03 [place] # 0.3 K/mm3 (0.0-0.8) 12/03/16 05:03 Eos # 0.1 K/mm3 (0.0-0.4) 12/03/16 05:03 Baso # 0.0 K/mm3 (0.0-0.1) 12/03/16 05:03 Seg Neutrophils % 42.7 % (40.0-70.0) 12/03/16 05:03 Seg Neutrophils # 1.2 K/mm3 (1.8-7.7) L 12/03/16 05:03 PT 13.7 Sec. (12.2-14.9) 12/02/16 20:28 INR 1.00 (0.87-1.13) 12/02/16 20:28 APTT 26.3 Sec. (24.2-36.6) 12/02/16 20:28 Sodium 139 mmol/L (137-145) 12/03/16 05:03 Potassium 4.0 mmol/L (3.6-5.0) 12/03/16 05:03 Chloride 104.8 mmol/L (98-107) 12/03/16 05:03 Carbon Dioxide 24 mmol/L (22-30) 12/03/16 05:03 Anion Gap 14 mmol/L 12/03/16 05:03 BUN 29 mg/dL (7-17) H 12/03/16 05:03 Creatinine 3.2 mg/dL (0.7-1.2) H 12/03/16 05:03 Estimated GFR 17 ml/min 12/03/16 05:03 BUN/Creatinine Ratio 9.06 % 12/03/16 05:03 Glucose 116 mg/dL (65-100) H 12/03/16 05:03 Calcium 6.8 mg/dL (8.4-10.2) L 12/03/16 05:03 Total Bilirubin 0.30 mg/dL (0.1-1.2) 12/02/16 20:28 AST 24 units/L (5-40) 12/02/16 20:28 ALT 22 units/L (7-56) 12/02/16 20:28 Alkaline Phosphatase 89 units/L (35-129) 12/02/16 20:28 Troponin T 0.955 ng/mL (0.00-0.029) H* 12/02/16 20:44 NT-Pro-B Natriuret Pep 50434 pg/mL (0-900) H 12/02/16 20:44 Total Protein 4.6 g/dL (6.3-8.2) L 12/02/16 20:28 Albumin 2.5 g/dL (3.9-5) L 12/02/16 20:28 Albumin/Globulin Ratio 1.2 % 12/02/16 20:28 Triglycerides 127 mg/dL (2-149) 12/02/16 20:44 Cholesterol 87 mg/dL (50-199) 12/02/16 20:44 LDL Cholesterol Direct 22 mg/dL (50-130) L 12/02/16 20:44 HDL Cholesterol 40 mg/dL (40-59) 12/02/16 20:44 Cholesterol/HDL Ratio 2.17 % 12/02/16 20:44 Blood Type O POSITIVE 12/02/16 20:25 Antibody Screen Negative 12/02/16 20:25 Crossmatch See Detail 12/02/16 20:25
--- NOTE | 2016-12-03 13:43 | Consultation ---
History of Present Illness - Reason for Consult Consult date: 12/03/16 acute renal failure Requesting physician: MERCEDES TAI - History of Present Illness 71-year-old female who has NATHALIA requiring dialysis. [facility] 2/2 hypotension and low hgb count(6.5). Her dialysis days are MWF and her last HD was on Wednesday. Wednesday HD was not done /2 hypotension. Pt c/o fatigue other soriano no new compliants. No obvious bleeding from anywhere. We are consulted for management of her ESRD. Past History Past Medical History: acute [place], CAD, dialysis, hypertension, hyperlipidemia, renal failure, other (GI bleed,thrombocytopenia, dementia) Past Surgical History: hysterectomy Social history: full code. denies: smoking, alcohol abuse Family history: hypertension Medications and Allergies Allergies Allergy/AdvReac Type Severity Reaction Status Date / Time Beef AdvReac Unknown Uncoded 11/19/16 14:52 Home Medications Medication Instructions Recorded Confirmed Last Taken Type Alendronate Sodium [Fosamax] 70 mg PO QWEEK #0 02/25/15 12/02/16 1 Day Ago History Calcium Carbonate/Vitamin D3 1 tab PO DAILY #0 02/25/15 12/02/16 1 Day Ago History [Calcium 500-Vit D3 200 Tablet] Hydralazine HCl [Apresoline TAB] 50 mg PO TID #0 02/25/15 12/02/16 1 Day Ago History Potassium Chloride [Klor-Con M20] 20 meq PO DAILY 02/25/15 12/02/16 1 Day Ago History Valsartan 320 mg PO DAILY 02/25/15 12/02/16 1 Day Ago History amLODIPine [Norvasc] 10 mg PO DAILY #0 02/25/15 12/02/16 1 Day Ago History traMADol [Ultram 50 MG tab] 50 mg PO Q4HR PRN #12 tablet 03/25/16 12/02/16 1 Day Ago Rx Aspirin [Aspirin BABY CHEW TAB] 81 mg PO QDAY tab.chew 11/25/16 12/02/16 Unknown Rx AtorvaSTATin [Lipitor] 40 mg PO QHS tablet 11/25/16 12/02/16 Unknown Rx Carvedilol [Coreg] 50 mg PO BID tablet 11/25/16 12/02/16 Unknown Rx Clopidogrel [Plavix] 75 mg PO QDAY tablet 11/25/16 12/02/16 Unknown Rx ISOSORBIDE MONOnitrate [Imdur ER] 30 mg PO QDAY tablet 11/25/16 12/02/16 Unknown Rx Ipratropium/Albuterol Sulfate 1 ampul IH TIDRT ampul.neb 11/25/16 12/02/16 Unknown Rx [DUONEB *Not for PRN Use*] Memantine Xr [Namenda Xr] 14 mg PO QDAY cap 11/25/16 12/02/16 Unknown Rx Pantoprazole [Protonix TAB] 40 mg PO QDAY tablet 11/25/16 12/02/16 Unknown Rx Sennosides/Docusate [Senokot S] 2 tab PO QHS tablet 11/25/16 12/02/16 Unknown Rx Active Meds: Active Medications Acetaminophen (Tylenol) 650 mg PO Q4H PRN PRN Reason: Pain MILD(1-3)/Fever >100.5/PAREKH Albuterol/Ipratropium (Duoneb *Not For Prn Use*) 1 ampul IH TIDRT [facility] Last Admin: 12/03/16 07:56 Dose: 1 ampul Amlodipine Besylate (Norvasc) 10 mg PO DAILY [facility] Last Admin: 12/03/16 10:21 Dose: 10 mg Aspirin (Baby Aspirin) 81 mg PO QDAY [facility] Last Admin: 12/03/16 10:21 Dose: 81 mg Atorvastatin Calcium (Lipitor) 40 mg PO QHS [facility] Bisacodyl (Dulcolax) 10 mg [place] QDAY PRN PRN Reason: Constipation unrelieved by MOM Calcium/Vitamin D (Oysco D 500 Mg-200 Unit) 1 each PO DAILY [facility] Last Admin: 12/03/16 10:20 Dose: 1 each Carvedilol (Coreg) 50 mg PO BID [facility] Last Admin: 12/03/16 10:20 Dose: 50 mg Clopidogrel Bisulfate (Plavix) 75 mg PO QDAY [facility] Last Admin: 12/03/16 10:19 Dose: 75 mg Heparin Sodium (Porcine) (Heparin) 5,000 unit SUB-Q Q8HR [facility] Last Admin: 12/03/16 06:42 Dose: 5,000 unit Hydralazine HCl (Apresoline) 50 mg PO TID [facility] Last Admin: 12/03/16 10:19 Dose: 50 mg Isosorbide Mononitrate (Imdur) 30 mg PO QDAY [facility] Last Admin: 12/03/16 10:20 Dose: 30 mg Memantine (Namenda Xr) 14 mg PO QDAY [facility] Last Admin: 12/03/16 10:20 Dose: 14 mg Morphine Sulfate (Morphine) 2 mg IV Q4H PRN PRN Reason: Pain, Moderate (4-6) Ondansetron HCl (Zofran) 4 mg IV Q6H PRN PRN Reason: nausea or vomiting Pantoprazole Sodium (Protonix) 40 mg PO QDAY [facility] Last Admin: 12/03/16 10:22 Dose: 40 mg Senna/Docusate Sodium (Senokot S) 2 tab PO QHS [facility] Tramadol HCl (Ultram) 50 mg PO Q4HR PRN PRN Reason: Pain Valsartan (Diovan) 320 mg PO QDAY [facility] Last Admin: 12/03/16 10:23 Dose: 320 mg Review of Systems Constitutional: fatigue, weakness Ears, nose, mouth and throat: no nose pain, no nasal congestion Cardiovascular: no chest pain, no orthopnea, no palpitations, no shortness of breath Respiratory: no cough, no cough with sputum Gastrointestinal: no abdominal pain, no nausea, no vomiting, no diarrhea Genitourinary Female: no pelvic pain, no flank pain Rectal: no pain, no incontinence Musculoskeletal: no neck stiffness, no neck pain, no shooting arm pain Integumentary: no rash, no pruritis, no redness Neurological: no paralysis, no weakness, no parathesias Psychiatric: no anxiety, no memory loss Endocrine: no cold intolerance, no heat intolerance Hematologic/Lymphatic: no easy bruising, no easy bleeding Exam - Vital Signs Vital signs: Vital Signs Pulse Ox 98 12/02/16 17:55 - General Appearance General appearance: well-developed, well-nourished, appears stated age, chronically ill, frail EENT: PERRL, mucous membranes moist Neck: Present: neck supple, trachea midline. Absent: JVD/HJR, Masses Respiratory: Decreased Breath Sounds Heart: regular, normal heart rate, S1S2, no murmurs Gastrointestinal: Present: normoactive bowel sounds. Absent: masses Integumentary: no rash, warm and dry Neurologic: no focal deficit, strength 5/5 Musculoskeletal: Absent: deformities, joint swelling Psychiatric: mood/affect appropriate, cooperative Results - Lab Results 12/03/16 05:03 12/03/16 05:03 Most recent lab results Calcium 6.8 mg/dL (8.4-10.2) L 12/03/16 05:03 Assessment and Plan 1. NATHALIA 2/2 ATN requiring dialysis, underlying CKD III 2. Pancytopenia cause unclear 3. Chronic systolic HF with EF of 10-15% 4. CAD s/p PCI of the mid LAD and mid circumflex 5. Hypotension, Plan: -HD arrangements made for am (pt still has some residual function and with no emergent indications so can wait till am) -Epogen on dialysis -She has Pancytopenia and need further eval-recommend re consulting hematology- see by them on the last visit -Avoid nephrotoxins -Monitor for renal recovery
[2016-12-03] MEDS ORDERED: PROVENTIL IH PRN (15:10)
[2016-12-03] MEDS ORDERED: NACL 0.9% 100 ML IV PRN (16:16)
--- NOTE | 2016-12-03 16:19 | Event Note ---
Date: 12/03/16 - full consult dictated - pt w/ reported recent non-STEMI now anemia - ,plan egd/colon if cleared by Cardiology
[2016-12-03] MEDS ORDERED: GOLYTELY PO ONE (18:00)
[2016-12-03 22:28] LABS: Magnesium 1.3 mg/dL (1.7-2.3); Phosphorous 1.8 mg/dL (2.5-4.5)
[2016-12-03] MEDS: SENOKOT S PO SCH (22:49)
[2016-12-04] MEDS ORDERED: MAGNESIUM SULFATE 2GM/50ML 2 GM/50 ML BAG IV ONE (01:47)
[2016-12-04] MEDS ORDERED: SODIUM PHOSPHATE 30 MMOL in NACL 0.9% 500 ML 500 ML IV ONE (01:47)
--- NOTE | 2016-12-04 05:18 | Consultation ---
REFERRING PHYSICIAN: Obed Moses MD INDICATION: Anemia. HISTORY OF PRESENT ILLNESS: The patient is a 71-year-old black female with history of hypertension, high cholesterol, kidney disease on dialysis with a recent non-STEMI presents for anemia. The patient reports she has been having some general weakness with some dark stools. She subsequently was on dialysis today, was noted to have a hemoglobin of 6.7. Subsequently, sent to the Emergency Room for further evaluation. The patient denies any chest pain. Denies any nausea, vomiting. She reports her last endoscopy and colonoscopy were 2-3 years ago. She denies any other specific GI complaints. PAST MEDICAL HISTORY: 1. Acute [place]. 2. Coronary artery disease. 3. Hypertension. 4. High cholesterol. 5. Renal failure. PAST SURGICAL HISTORY: Status post hysterectomy. MEDICATIONS: See chart. ALLERGIES: No known drug allergies. SOCIAL HISTORY: Denies alcohol or tobacco. FAMILY HISTORY: Negative for colon cancer. REVIEW OF SYSTEMS: GENERAL: Reports mild weakness. HEENT: No visual complaints or tinnitus. PULMONARY: No shortness of breath. No cough. No chest pain. GASTROINTESTINAL: Reports some dark stool. All points of 13-point review of systems otherwise negative. PHYSICAL EXAMINATION: VITAL SIGNS: Temperature of 98.7, pulse 74, respiration 18, blood pressure 120/50. GENERAL: Fairly thin black female in no acute distress. HEENT: Pupils equal, round, reactive to light and accommodation. Extraocular muscles intact. PULMONARY: Clear to auscultation bilaterally. CARDIOVASCULAR: Regular rhythm. Normal S1, S2. ABDOMEN: Positive bowel sounds, soft. SKIN: No obvious rashes. LABORATORY DATA: Pertinent for white count of 2.7, hemoglobin and hematocrit of 7.6 and 23.2, platelet count of 76. Coags within normal limits. BUN and creatinine of 29 and 3.2, otherwise normal Chem-7. Troponin of 0.955. ASSESSMENT: A 71-year-old black female, recent non-ST elevation myocardial infraction and renal failure, noted to have anemia. Management is noted below. PLAN: 1. Follow hematocrit and transfuse as needed. 2. The patient will require cardiac clearance prior to scope. 3. If cleared by Cardiology plan for EGD and colonoscopy in a.m. JOB# [id number] CAB/NTS
[2016-12-04 05:52] LABS: Basophils % (Auto) 0.4 % (0.0-1.8); Eosinophils % (Auto) 5.4 % (0.0-4.3); Hematocrit 23.6 % (30.3-42.9); Hemoglobin 7.5 gm/dl (10.1-14.3); Mean Corpuscular HGB Conc 32 % (30-34); Mean Corpuscular Hemoglobin 31 pg (28-32); Mean Corpuscular Volume 99 fl (79-97); Red Cell Distribution Width 15.9 % (13.2-15.2); White Blood Count 2.8 K/mm3 (4.5-11.0)
[2016-12-04 05:55] LABS: Platelet Count 74 K/mm3 (140-440)
[2016-12-04] MEDS: HEPARIN SUB-Q SCH ×3 (05:58→22:59)
[2016-12-04 06:12] LABS: Calcium 6.8 mg/dL (8.4-10.2); Chloride 103.1 mmol/L (98-107); Potassium 3.9 mmol/L (3.6-5.0)
[2016-12-04] MEDS ORDERED: NACL 0.9% 1000 ML 1,000 ML IV SCH (08:00)
--- NOTE | 2016-12-04 09:10 | Progress Note ---
Assessment and Plan 1. NATHALIA 2/2 ATN requiring dialysis, underlying CKD III 2. Pancytopenia cause unclear 3. Chronic systolic HF with EF of 10-15% 4. CAD s/p PCI of the mid LAD and mid circumflex 5. Hypotension, Plan: -HD MWF schedule -Epogen on dialysis -She has Pancytopenia and need further eval-recommend re consulting hematology- see by them on the last visit -GI plans noted. -Avoid nephrotoxins -Monitor for renal recovery Subjective Date of service: 12/04/16 Interval history: No new events. Objective - Exam Narrative Exam: General appearance: well-developed, well-nourished, appears stated age, chronically ill, frail EENT: PERRL, mucous membranes moist Neck: Present: neck supple, trachea midline. Absent: JVD/HJR, Masses Respiratory: Decreased Breath Sounds Heart: regular, normal heart rate, S1S2, no murmurs Gastrointestinal: Present: normoactive bowel sounds. Absent: masses Integumentary: no rash, warm and dry Neurologic: no focal deficit, strength 5/5 Musculoskeletal: Absent: deformities, joint swelling Psychiatric: mood/affect appropriate, cooperative - Vital Signs Vital signs: Vital Signs - 12hr 12/03/16 12/04/16 12/04/16 22:47 01:35 08:00 Temperature 98 F 98.2 F Pulse Rate 72 79 80 Respiratory 18 18 Rate Blood Pressure 124/64 143/60 136/58 O2 Sat by Pulse 96 96 Oximetry - Lab 12/04/16 05:16 12/04/16 05:16 Most recent lab results Calcium 6.8 mg/dL (8.4-10.2) L 12/04/16 05:16 Phosphorus 1.80 mg/dL (2.5-4.5) L 12/03/16 21:58 Magnesium 1.30 mg/dL (1.7-2.3) L 12/03/16 21:58
--- NOTE | 2016-12-04 10:22 | Consultation ---
History of Present Illness Consult date: 12/04/16 Consult reason: known to you History of present illness: This is a 71yr with multiple medical problems who was recently discharged from this hospital. She has severe cardiomyopathy, ejection fraction 10-15% on echocardiogram. She has 2 vessel coronary artery disease found on cardiac cath 2 weeks ago. During that admission patient was noted multiple co-morbidities including anemia and thrombocytopenia. After she was fully evaluated by GI and Hematology patient was stage for coronary intervention. Patient underwent 2 vessel PCI of the mid LAD and mid circumflex using baremetal stents. Post PCI, her hemoglobin and platelet count remained stable while on plavix and aspirin. Co-morbidities includes prior CVA, Hypertension and renal disease recently initiated on dialysis. Patient is now admitted with Anemia. It's reported patient went to dialysis, noted a low hemoglobin and sent to the ED for evaluation. Initial workup in the ED noted an H&H 6.7/20.8. Platelet count of 82,000. It is unclear if there was any black stools or hematuria. Patient denies chest pain and shortness of breath. No acute ischemic changes on her ECG. Cardiac consultation was requested. Past History Past Medical History: acute [place], CAD, dialysis, hypertension, hyperlipidemia, renal failure, other (GI bleed,thrombocytopenia, dementia) Past Surgical History: hysterectomy Social history: full code. denies: smoking, alcohol abuse Family history: hypertension Medications and Allergies Allergies Allergy/AdvReac Type Severity Reaction Status Date / Time Beef AdvReac Unknown Uncoded 11/19/16 14:52 Home Medications Medication Instructions Recorded Confirmed Last Taken Type Alendronate Sodium [Fosamax] 70 mg PO QWEEK #0 02/25/15 12/02/16 1 Day Ago History Calcium Carbonate/Vitamin D3 1 tab PO DAILY #0 02/25/15 12/02/16 1 Day Ago History [Calcium 500-Vit D3 200 Tablet] Hydralazine HCl [Apresoline TAB] 50 mg PO TID #0 02/25/15 12/02/16 1 Day Ago History Potassium Chloride [Klor-Con M20] 20 meq PO DAILY 02/25/15 12/02/16 1 Day Ago History Valsartan 320 mg PO DAILY 02/25/15 12/02/16 1 Day Ago History amLODIPine [Norvasc] 10 mg PO DAILY #0 02/25/15 12/02/16 1 Day Ago History traMADol [Ultram 50 MG tab] 50 mg PO Q4HR PRN #12 tablet 03/25/16 12/02/16 1 Day Ago Rx Aspirin [Aspirin BABY CHEW TAB] 81 mg PO QDAY tab.chew 11/25/16 12/02/16 Unknown Rx AtorvaSTATin [Lipitor] 40 mg PO QHS tablet 11/25/16 12/02/16 Unknown Rx Carvedilol [Coreg] 50 mg PO BID tablet 11/25/16 12/02/16 Unknown Rx Clopidogrel [Plavix] 75 mg PO QDAY tablet 11/25/16 12/02/16 Unknown Rx ISOSORBIDE MONOnitrate [Imdur ER] 30 mg PO QDAY tablet 11/25/16 12/02/16 Unknown Rx Ipratropium/Albuterol Sulfate 1 ampul IH TIDRT ampul.neb 11/25/16 12/02/16 Unknown Rx [DUONEB *Not for PRN Use*] Memantine Xr [Namenda Xr] 14 mg PO QDAY cap 11/25/16 12/02/16 Unknown Rx Pantoprazole [Protonix TAB] 40 mg PO QDAY tablet 11/25/16 12/02/16 Unknown Rx Sennosides/Docusate [Senokot S] 2 tab PO QHS tablet 11/25/16 12/02/16 Unknown Rx Active Meds: Active Medications Acetaminophen (Tylenol) 650 mg PO Q4H PRN PRN Reason: Pain MILD(1-3)/Fever >100.5/PAREKH Albuterol (Proventil) 2.5 mg IH Q4HRT PRN PRN Reason: Shortness Of Breath Amlodipine Besylate (Norvasc) 10 mg PO DAILY [facility] Last Admin: 12/03/16 10:21 Dose: 10 mg Aspirin (Baby Aspirin) 81 mg PO QDAY [facility] Last Admin: 12/03/16 10:21 Dose: 81 mg Atorvastatin Calcium (Lipitor) 40 mg PO QHS [facility] Last Admin: 12/03/16 22:49 Dose: 40 mg Bisacodyl (Dulcolax) 10 mg [place] QDAY PRN PRN Reason: Constipation unrelieved by MOM Calcium/Vitamin D (Oysco D 500 Mg-200 Unit) 1 each PO DAILY [facility] Last Admin: 12/03/16 10:20 Dose: 1 each Carvedilol (Coreg) 50 mg PO BID [facility] Last Admin: 12/03/16 22:47 Dose: 50 mg Clopidogrel Bisulfate (Plavix) 75 mg PO QDAY [facility] Last Admin: 12/03/16 10:19 Dose: 75 mg Epoetin Rahul (Epogen) 20,000 unit IV DAIANA PRN PRN Reason: hemodialysis Heparin Sodium (Porcine) (Heparin) 5,000 unit SUB-Q Q8HR [facility] Last Admin: 12/04/16 05:58 Dose: Not Given Hydralazine HCl (Apresoline) 50 mg PO TID [facility] Last Admin: 12/03/16 20:00 Dose: Not Given Sodium Chloride (Nacl 0.9%) 100 mls @ 999 mls/hr IV DAIANA PRN PRN Reason: Hypotension Sodium Chloride (Nacl 0.9% 1000 Ml) 1,000 mls @ 50 mls/hr IV DIRECT [facility] Isosorbide Mononitrate (Imdur) 30 mg PO QDAY [facility] Last Admin: 12/03/16 10:20 Dose: 30 mg Memantine (Namenda Xr) 14 mg PO QDAY [facility] Last Admin: 12/03/16 10:20 Dose: 14 mg Morphine Sulfate (Morphine) 2 mg IV Q4H PRN PRN Reason: Pain, Moderate (4-6) Ondansetron HCl (Zofran) 4 mg IV Q6H PRN PRN Reason: nausea or vomiting Pantoprazole Sodium (Protonix) 40 mg PO QDAY [facility] Last Admin: 12/03/16 10:22 Dose: 40 mg Senna/Docusate Sodium (Senokot S) 2 tab PO QHS [facility] Last Admin: 12/03/16 22:49 Dose: 2 tab Tramadol HCl (Ultram) 50 mg PO Q4HR PRN PRN Reason: Pain Valsartan (Diovan) 320 mg PO QDAY [facility] Last Admin: 12/03/16 10:23 Dose: 320 mg Physical Examination Vital Signs Pulse Ox 98 12/02/16 17:55 General appearance: no acute distress HEENT: Positive: PERRL Neck: Positive: trachea midline Cardiac: Positive: Reg Rate and Rhythm Results 12/04/16 05:16 12/04/16 05:16 CBC 12/04/16 Range/Units 05:16 WBC 2.8 L (4.5-11.0) K/mm3 RBC 2.40 L (3.65-5.03) M/mm3 Hgb 7.5 L (10.1-14.3) gm/dl Hct 23.6 L (30.3-42.9) % Plt Count 74 L (140-440) K/mm3 Lymph # 1.2 (1.2-5.4) K/mm3 Teller # 0.3 (0.0-0.8) K/mm3 Eos # 0.2 (0.0-0.4) K/mm3 Baso # 0.0 (0.0-0.1) K/mm3 Comprehensive Metabolic Panel 12/04/16 Range/Units 05:16 Sodium 140 (137-145) mmol/L Potassium 3.9 (3.6-5.0) mmol/L Chloride 103.1 (98-107) mmol/L Carbon Dioxide 24 (22-30) mmol/L BUN 30 H (7-17) mg/dL Creatinine 3.0 H (0.7-1.2) mg/dL Glucose 85 (65-100) mg/dL Calcium 6.8 L (8.4-10.2) mg/dL Assessment and Plan Anemia s/p blood transfusion recent EGD/Flex reports mild non-erosive gastritis and hemorrhoids. Chronic renal disease recently initiated on dialysis Thrombocytopenia CAD s/p recent PCI of the mid LAD and mid circumflex using baremetal stents. on plavix and aspirin Severe Cardiomyopathy LVEF 10-15% on echocardiogram 10/2016 Moderate to severe mitral regurgitation Prior CVA Hypertension
--- NOTE | 2016-12-04 11:12 | Progress Note ---
Assessment and Plan Assessment and plan: Anemia. Patient with hemoglobin of 6.7 on admission. Etiology may be secondary to anemia from renal disease. GI to perform endoscopic for further evaluation. Patient is status post transfusion PRBCs. F/U H&H. Acute on CKD on dialysis. Nephrology following. Coronary artery disease status post recent NSTEMI 1 week ago. Cardiac clearance per cardiology. Hypertension. BP stable. Resume home meds Hyperlipidemia. Dementia. Supportive care, resume meds. Full CODE STATUS DVT prophylaxis with heparin. History Interval history: No new issues overnight. Hospitalist Physical - Constitutional Vitals: Temp Pulse Resp BP Pulse Ox 98.2 F 80 18 136/58 96 12/04/16 08:00 12/04/16 08:00 12/04/16 08:00 12/04/16 08:00 12/04/16 08:00 General appearance: Present: no acute distress, well-nourished - EENT Eyes: Present: PERRL, EOM intact ENT: hearing intact, clear oral mucosa, dentition normal - Neck Neck: Present: supple, normal ROM - Respiratory Respiratory effort: normal Respiratory: bilateral: CTA - Cardiovascular Rhythm: regular Heart Sounds: Present: S1 & S2. Absent: gallop, rub - Extremities Extremities: no ischemia, No edema, Full ROM - Abdominal General gastrointestinal: soft, non-tender, non-distended, normal bowel sounds - Integumentary Integumentary: Present: clear, warm, dry - Neurologic Neurologic: CNII-XII intact, moves all extremities Results - Labs CBC & Chem 7: 12/04/16 05:16 12/04/16 05:16 Labs: Laboratory Last Values WBC 2.8 K/mm3 (4.5-11.0) L 12/04/16 05:16 RBC 2.40 M/mm3 (3.65-5.03) L 12/04/16 05:16 Hgb 7.5 gm/dl (10.1-14.3) L 12/04/16 05:16 Hct 23.6 % (30.3-42.9) L 12/04/16 05:16 MCV 99 fl (79-97) H 12/04/16 05:16 MCH 31 pg (28-32) 12/04/16 05:16 MCHC 32 % (30-34) 12/04/16 05:16 RDW 15.9 % (13.2-15.2) H 12/04/16 05:16 Plt Count 74 K/mm3 (140-440) L 12/04/16 05:16 Lymph % (Auto) 44.6 % (13.4-35.0) H 12/04/16 05:16 [place] % (Auto) 10.7 % (0.0-7.3) H 12/04/16 05:16 Eos % (Auto) 5.4 % (0.0-4.3) H 12/04/16 05:16 Baso % (Auto) 0.4 % (0.0-1.8) 12/04/16 05:16 Lymph # 1.2 K/mm3 (1.2-5.4) 12/04/16 05:16 [place] # 0.3 K/mm3 (0.0-0.8) 12/04/16 05:16 Eos # 0.2 K/mm3 (0.0-0.4) 12/04/16 05:16 Baso # 0.0 K/mm3 (0.0-0.1) 12/04/16 05:16 Seg Neutrophils % 38.9 % (40.0-70.0) L 12/04/16 05:16 Seg Neutrophils # 1.1 K/mm3 (1.8-7.7) L 12/04/16 05:16 PT 13.7 Sec. (12.2-14.9) 12/02/16 20:28 INR 1.00 (0.87-1.13) 12/02/16 20:28 APTT 26.3 Sec. (24.2-36.6) 12/02/16 20:28 Sodium 140 mmol/L (137-145) 12/04/16 05:16 Potassium 3.9 mmol/L (3.6-5.0) 12/04/16 05:16 Chloride 103.1 mmol/L (98-107) 12/04/16 05:16 Carbon Dioxide 24 mmol/L (22-30) 12/04/16 05:16 Anion Gap 17 mmol/L 12/04/16 05:16 BUN 30 mg/dL (7-17) H 12/04/16 05:16 Creatinine 3.0 mg/dL (0.7-1.2) H 12/04/16 05:16 Estimated GFR 19 ml/min 12/04/16 05:16 BUN/Creatinine Ratio 10.00 % 12/04/16 05:16 Glucose 85 mg/dL (65-100) 12/04/16 05:16 Calcium 6.8 mg/dL (8.4-10.2) L 12/04/16 05:16 Phosphorus 1.80 mg/dL (2.5-4.5) L 12/03/16 21:58 Magnesium 1.30 mg/dL (1.7-2.3) L 12/03/16 21:58 Total Bilirubin 0.30 mg/dL (0.1-1.2) 12/02/16 20:28 AST 24 units/L (5-40) 12/02/16 20:28 ALT 22 units/L (7-56) 12/02/16 20:28 Alkaline Phosphatase 89 units/L (35-129) 12/02/16 20:28 Troponin T 0.955 ng/mL (0.00-0.029) H* 12/02/16 20:44 NT-Pro-B Natriuret Pep 17078 pg/mL (0-900) H 12/02/16 20:44 Total Protein 4.6 g/dL (6.3-8.2) L 12/02/16 20:28 Albumin 2.5 g/dL (3.9-5) L 12/02/16 20:28 Albumin/Globulin Ratio 1.2 % 12/02/16 20:28 Triglycerides 127 mg/dL (2-149) 12/02/16 20:44 Cholesterol 87 mg/dL (50-199) 12/02/16 20:44 LDL Cholesterol Direct 22 mg/dL (50-130) L 12/02/16 20:44 HDL Cholesterol 40 mg/dL (40-59) 12/02/16 20:44 Cholesterol/HDL Ratio 2.17 % 12/02/16 20:44 Blood Type O POSITIVE 12/02/16 20:25 Antibody Screen Negative 12/02/16 20:25 Crossmatch See Detail 12/02/16 20:25
[2016-12-04] MEDS ORDERED: NACL 0.9 (PRIMING MACHINE ONLY DIALYSIS) MC ONE (11:55)
[2016-12-04] MEDS ORDERED: HEPARIN IV PRN (12:22)
--- NOTE | 2016-12-04 13:57 | Progress Note ---
Assessment and Plan 1. NATHALIA 2/2 ATN requiring dialysis, underlying CKD III 2. Pancytopenia cause unclear 3. Chronic systolic HF with EF of 10-15% 4. CAD s/p PCI of the mid LAD and mid circumflex 5. Hypotension, Plan: -HD MWF schedule -Epogen on dialysis -Hgb improved after 1 unit PRBC -F/u on GI recommendations -Avoid nephrotoxins -Monitor for renal recovery -D/c planning per primary team Subjective Date of service: 12/04/16 Interval history: Pt seen and examined on dialysis. Tolerating well. She is alert/talking Objective - Exam Narrative Exam: General appearance: well-developed, well-nourished, appears stated age, chronically ill, frail EENT: PERRL, mucous membranes moist Neck: Present: neck supple, trachea midline. Absent: JVD/HJR, Masses Respiratory: Decreased Breath Sounds Heart: regular, normal heart rate, S1S2, no murmurs Gastrointestinal: Present: normoactive bowel sounds. Absent: masses Integumentary: no rash, warm and dry Neurologic: no focal deficit, strength 5/5 Musculoskeletal: Absent: deformities, joint swelling Psychiatric: mood/affect appropriate, cooperative - Vital Signs Vital signs: Vital Signs - 12hr 12/04/16 12/04/16 12/04/16 08:00 10:15 10:30 Temperature 98.2 F 98.5 F Pulse Rate 80 80 73 Respiratory 18 16 Rate Blood Pressure 136/58 130/63 131/63 O2 Sat by Pulse 96 Oximetry 12/04/16 12/04/16 12/04/16 10:45 11:00 11:15 Temperature Pulse Rate 78 78 73 Respiratory Rate Blood Pressure 125/59 128/92 109/58 O2 Sat by Pulse Oximetry 12/04/16 12/04/16 12/04/16 11:30 11:45 12:00 Temperature Pulse Rate 72 79 79 Respiratory Rate Blood Pressure 101/49 111/54 111/59 O2 Sat by Pulse Oximetry 12/04/16 12/04/16 12/04/16 12:15 12:30 12:45 Temperature Pulse Rate 80 78 82 Respiratory Rate Blood Pressure 116/49 115/59 120/91 O2 Sat by Pulse Oximetry - Lab 12/04/16 05:16 12/04/16 05:16 Most recent lab results Calcium 6.8 mg/dL (8.4-10.2) L 12/04/16 05:16 Phosphorus 1.80 mg/dL (2.5-4.5) L 12/03/16 21:58 Magnesium 1.30 mg/dL (1.7-2.3) L 12/03/16 21:58
[2016-12-04] MEDS: APRESOLINE PO SCH ×2 (15:52→20:00)
[2016-12-04] MEDS: IMDUR PO SCH (16:26)
[2016-12-04] MEDS: COREG PO SCH ×2 (16:27→22:59)
[2016-12-04] MEDS: BABY ASPIRIN PO SCH (16:27)
[2016-12-04] MEDS: PROTONIX PO SCH (16:27)
[2016-12-04] MEDS: DIOVAN PO SCH (16:28)
[2016-12-04] MEDS: NORVASC PO SCH (16:28)
[2016-12-04] MEDS: NAMENDA XR PO SCH (16:28)
[2016-12-04] MEDS: OYSCO D 500 MG-200 UNIT PO SCH (16:28)
[2016-12-04] MEDS: PLAVIX PO SCH (16:30)
--- NOTE | 2016-12-04 17:51 | Gastroenterology Progress Note ---
Assessment and Plan GI: pt w/ anemia with recent GI workup benign - agree w/ Heme consult - possible pill cam for small bowel eval as outpt - otherwise no plans to scope at thsi time, call if needed Subjective Date of service: 12/04/16 Interval history: - no signs bleeding, no GI complaints Objective - Constitutional Vitals: Temp Pulse Resp BP Pulse Ox 98.3 F 86 16 144/65 96 12/04/16 16:00 12/04/16 16:27 12/04/16 16:00 12/04/16 16:27 12/04/16 08:00 General appearance: no acute distress - EENT Eyes: PERRL - Respiratory Respiratory: bilateral: CTA - Cardiovascular Rhythm: regular Heart Sounds: Present: S1 & S2 - Gastrointestinal General gastrointestinal: Present: soft, non-tender - Labs CBC & Chem 7: 12/04/16 05:16 12/04/16 05:16 Labs: Laboratory Results - last 24 hr 12/03/16 12/04/16 12/04/16 21:58 05:16 05:16 WBC 2.8 L RBC 2.40 L Hgb 7.5 L Hct 23.6 L MCV 99 H MCH 31 MCHC 32 RDW 15.9 H Plt Count 74 L Lymph % (Auto) 44.6 H [place] % (Auto) 10.7 H Eos % (Auto) 5.4 H Baso % (Auto) 0.4 Lymph # 1.2 [place] # 0.3 Eos # 0.2 Baso # 0.0 Seg Neutrophils % 38.9 L Seg Neutrophils # 1.1 L Sodium 140 Potassium 3.9 Chloride 103.1 Carbon Dioxide 24 Anion Gap 17 BUN 30 H Creatinine 3.0 H Estimated GFR 19 BUN/Creatinine Ratio 10.00 Glucose 85 Calcium 6.8 L Phosphorus 1.80 L Magnesium 1.30 L
[2016-12-04] MEDS: SENOKOT S PO SCH (22:59)
[2016-12-05] MEDS: HEPARIN SUB-Q SCH ×3 (06:24→22:07)
[2016-12-05] MEDS: IMDUR PO SCH (09:45)
[2016-12-05] MEDS: APRESOLINE PO SCH ×3 (09:45→22:07)
[2016-12-05] MEDS: PROTONIX PO SCH (09:46)
[2016-12-05] MEDS: COREG PO SCH ×2 (09:46→22:08)
[2016-12-05] MEDS: DIOVAN PO SCH (09:46)
[2016-12-05] MEDS: OYSCO D 500 MG-200 UNIT PO SCH (09:46)
[2016-12-05] MEDS: PLAVIX PO SCH (09:46)
[2016-12-05] MEDS: NAMENDA XR PO SCH (09:47)
[2016-12-05] MEDS: BABY ASPIRIN PO SCH (09:47)
[2016-12-05] MEDS: NORVASC PO SCH (09:48)
--- NOTE | 2016-12-05 11:08 | Progress Note ---
Assessment and Plan Assessment and plan: Anemia. Etiology may be secondary to anemia from renal disease. GI decided against any endoscopy at this time. Patient apparently with recent GI workup that was negative. Patient is status post transfusion PRBCs. F/U H&H. Hematology consultation pending. Acute on CKD on dialysis. Nephrology following. Coronary artery disease status post recent NSTEMI 1 week ago. Continued DAPT per cardiology recommendations. Hypertension. BP stable. Resume home meds Hyperlipidemia. Dementia. Supportive care, resume meds. Full CODE STATUS DVT prophylaxis with heparin. History Interval history: No new issues overnight. Hospitalist Physical - Constitutional Vitals: Temp Pulse Resp BP Pulse Ox 98.7 F 75 16 146/67 91 12/05/16 04:00 12/05/16 09:45 12/05/16 04:00 12/05/16 09:45 12/05/16 04:00 General appearance: Present: no acute distress - EENT Eyes: Present: PERRL, EOM intact ENT: hearing intact, clear oral mucosa, dentition normal - Neck Neck: Present: supple, normal ROM - Respiratory Respiratory effort: normal Respiratory: bilateral: CTA - Cardiovascular Rhythm: regular Heart Sounds: Present: S1 & S2. Absent: gallop, rub - Extremities Extremities: no ischemia, No edema, Full ROM - Abdominal General gastrointestinal: soft, non-tender, non-distended, normal bowel sounds - Integumentary Integumentary: Present: clear, warm, dry - Neurologic Neurologic: CNII-XII intact, moves all extremities Results - Labs CBC & Chem 7: 12/04/16 05:16 12/04/16 05:16 Labs: Laboratory Last Values WBC 2.8 K/mm3 (4.5-11.0) L 12/04/16 05:16 RBC 2.40 M/mm3 (3.65-5.03) L 12/04/16 05:16 Hgb 7.5 gm/dl (10.1-14.3) L 12/04/16 05:16 Hct 23.6 % (30.3-42.9) L 12/04/16 05:16 MCV 99 fl (79-97) H 12/04/16 05:16 MCH 31 pg (28-32) 12/04/16 05:16 MCHC 32 % (30-34) 12/04/16 05:16 RDW 15.9 % (13.2-15.2) H 12/04/16 05:16 Plt Count 74 K/mm3 (140-440) L 12/04/16 05:16 Lymph % (Auto) 44.6 % (13.4-35.0) H 12/04/16 05:16 [place] % (Auto) 10.7 % (0.0-7.3) H 12/04/16 05:16 Eos % (Auto) 5.4 % (0.0-4.3) H 12/04/16 05:16 Baso % (Auto) 0.4 % (0.0-1.8) 12/04/16 05:16 Lymph # 1.2 K/mm3 (1.2-5.4) 12/04/16 05:16 [place] # 0.3 K/mm3 (0.0-0.8) 12/04/16 05:16 Eos # 0.2 K/mm3 (0.0-0.4) 12/04/16 05:16 Baso # 0.0 K/mm3 (0.0-0.1) 12/04/16 05:16 Seg Neutrophils % 38.9 % (40.0-70.0) L 12/04/16 05:16 Seg Neutrophils # 1.1 K/mm3 (1.8-7.7) L 12/04/16 05:16 PT 13.7 Sec. (12.2-14.9) 12/02/16 20:28 INR 1.00 (0.87-1.13) 12/02/16 20:28 APTT 26.3 Sec. (24.2-36.6) 12/02/16 20:28 Sodium 140 mmol/L (137-145) 12/04/16 05:16 Potassium 3.9 mmol/L (3.6-5.0) 12/04/16 05:16 Chloride 103.1 mmol/L (98-107) 12/04/16 05:16 Carbon Dioxide 24 mmol/L (22-30) 12/04/16 05:16 Anion Gap 17 mmol/L 12/04/16 05:16 BUN 30 mg/dL (7-17) H 12/04/16 05:16 Creatinine 3.0 mg/dL (0.7-1.2) H 12/04/16 05:16 Estimated GFR 19 ml/min 12/04/16 05:16 BUN/Creatinine Ratio 10.00 % 12/04/16 05:16 Glucose 85 mg/dL (65-100) 12/04/16 05:16 Calcium 6.8 mg/dL (8.4-10.2) L 12/04/16 05:16 Phosphorus 1.80 mg/dL (2.5-4.5) L 12/03/16 21:58 Magnesium 1.30 mg/dL (1.7-2.3) L 12/03/16 21:58 Total Bilirubin 0.30 mg/dL (0.1-1.2) 12/02/16 20:28 AST 24 units/L (5-40) 12/02/16 20:28 ALT 22 units/L (7-56) 12/02/16 20:28 Alkaline Phosphatase 89 units/L (35-129) 12/02/16 20:28 Troponin T 0.955 ng/mL (0.00-0.029) H* 12/02/16 20:44 NT-Pro-B Natriuret Pep 69600 pg/mL (0-900) H 12/02/16 20:44 Total Protein 4.6 g/dL (6.3-8.2) L 12/02/16 20:28 Albumin 2.5 g/dL (3.9-5) L 12/02/16 20:28 Albumin/Globulin Ratio 1.2 % 12/02/16 20:28 Triglycerides 127 mg/dL (2-149) 12/02/16 20:44 Cholesterol 87 mg/dL (50-199) 12/02/16 20:44 LDL Cholesterol Direct 22 mg/dL (50-130) L 12/02/16 20:44 HDL Cholesterol 40 mg/dL (40-59) 12/02/16 20:44 Cholesterol/HDL Ratio 2.17 % 12/02/16 20:44 Blood Type O POSITIVE 12/02/16 20:25 Antibody Screen Negative 12/02/16 20:25 Crossmatch See Detail 12/02/16 20:25
--- NOTE | 2016-12-05 12:36 | Progress Note ---
Assessment and Plan Anemia s/p blood transfusion recent EGD/Flex reports mild non-erosive gastritis and hemorrhoids. No clear etiology thus far - hematology evaluation planned. Chronic renal disease recently initiated on dialysis Thrombocytopenia CAD s/p recent PCI of the mid LAD and mid circumflex using baremetal stents. on plavix and aspirin Severe Cardiomyopathy LVEF 10-15% on echocardiogram 10/2016 Moderate to severe mitral regurgitation Prior CVA Hypertension Recommend: Continue current therapy including DAPT unless patient has overt, life threatening bleeding. Subjective Date of service: 12/05/16 Interval history: No cardiac complaints. No overt bleeding. Objective Vital Signs Temp Pulse Resp BP Pulse Ox 12/05/16 09:45 75 146/67 12/05/16 07:50 99.5 F 74 20 133/64 95 12/05/16 04:00 98.7 F 76 16 131/60 91 12/05/16 00:00 99.8 F H 85 16 129/59 99 12/04/16 20:00 100.3 F H 83 18 124/59 96 12/04/16 16:27 86 144/65 12/04/16 16:26 86 144/65 12/04/16 16:00 98.3 F 86 16 144/65 12/04/16 13:30 98.7 F 77 16 128/64 12/04/16 13:20 85 123/71 12/04/16 13:15 73 116/29 12/04/16 13:00 79 118/61 12/04/16 12:45 82 120/91 - Physical Examination HEENT: Positive: PERRL Neck: Positive: trachea midline Cardiac: Positive: Reg Rate and Rhythm Lungs: Positive: clear to auscultation Neuro: Positive: Grossly Intact Abdomen: Positive: Soft, Active Bowel Sounds Extremities: Absent: edema
--- NOTE | 2016-12-05 14:01 | Hem/Onc Consultation ---
History of Present Illness - Reason for Consult Consult date: 12/05/16 Anemia - History of Present Illness 71 year old lady seen for anemia. She is a very poor historian. Bed bound mainly. Past History Past Medical History: acute [place], CAD, dialysis, hypertension, hyperlipidemia, renal failure, other (GI bleed,thrombocytopenia, dementia) Past Surgical History: hysterectomy Social history: full code. denies: smoking, alcohol abuse Family history: hypertension Medications and Allergies Allergies Allergy/AdvReac Type Severity Reaction Status Date / Time Beef AdvReac Unknown Uncoded 11/19/16 14:52 Home Medications Medication Instructions Recorded Confirmed Last Taken Type Alendronate Sodium [Fosamax] 70 mg PO QWEEK #0 02/25/15 12/02/16 1 Day Ago History Calcium Carbonate/Vitamin D3 1 tab PO DAILY #0 02/25/15 12/02/16 1 Day Ago History [Calcium 500-Vit D3 200 Tablet] Hydralazine HCl [Apresoline TAB] 50 mg PO TID #0 02/25/15 12/02/16 1 Day Ago History Potassium Chloride [Klor-Con M20] 20 meq PO DAILY 02/25/15 12/02/16 1 Day Ago History Valsartan 320 mg PO DAILY 02/25/15 12/02/16 1 Day Ago History amLODIPine [Norvasc] 10 mg PO DAILY #0 02/25/15 12/02/16 1 Day Ago History traMADol [Ultram 50 MG tab] 50 mg PO Q4HR PRN #12 tablet 03/25/16 12/02/16 1 Day Ago Rx Aspirin [Aspirin BABY CHEW TAB] 81 mg PO QDAY tab.chew 11/25/16 12/02/16 Unknown Rx AtorvaSTATin [Lipitor] 40 mg PO QHS tablet 11/25/16 12/02/16 Unknown Rx Carvedilol [Coreg] 50 mg PO BID tablet 11/25/16 12/02/16 Unknown Rx Clopidogrel [Plavix] 75 mg PO QDAY tablet 11/25/16 12/02/16 Unknown Rx ISOSORBIDE MONOnitrate [Imdur ER] 30 mg PO QDAY tablet 11/25/16 12/02/16 Unknown Rx Ipratropium/Albuterol Sulfate 1 ampul IH TIDRT ampul.neb 11/25/16 12/02/16 Unknown Rx [DUONEB *Not for PRN Use*] Memantine Xr [Namenda Xr] 14 mg PO QDAY cap 11/25/16 12/02/16 Unknown Rx Pantoprazole [Protonix TAB] 40 mg PO QDAY tablet 11/25/16 12/02/16 Unknown Rx Sennosides/Docusate [Senokot S] 2 tab PO QHS tablet 11/25/16 12/02/16 Unknown Rx Active Meds: Active Medications Acetaminophen (Tylenol) 650 mg PO Q4H PRN PRN Reason: Pain MILD(1-3)/Fever >100.5/PAREKH Albuterol (Proventil) 2.5 mg IH Q4HRT PRN PRN Reason: Shortness Of Breath Amlodipine Besylate (Norvasc) 10 mg PO DAILY [facility] Last Admin: 12/05/16 09:48 Dose: 10 mg Aspirin (Baby Aspirin) 81 mg PO QDAY [facility] Last Admin: 12/05/16 09:47 Dose: 81 mg Atorvastatin Calcium (Lipitor) 40 mg PO QHS [facility] Last Admin: 12/04/16 22:59 Dose: 40 mg Bisacodyl (Dulcolax) 10 mg [place] QDAY PRN PRN Reason: Constipation unrelieved by MOM Calcium/Vitamin D (Oysco D 500 Mg-200 Unit) 1 each PO DAILY [facility] Last Admin: 12/05/16 09:46 Dose: 1 each Carvedilol (Coreg) 50 mg PO BID [facility] Last Admin: 12/05/16 09:46 Dose: 50 mg Clopidogrel Bisulfate (Plavix) 75 mg PO QDAY [facility] Last Admin: 12/05/16 09:46 Dose: 75 mg Epoetin Rahul (Epogen) 20,000 unit IV DAIANA PRN PRN Reason: hemodialysis Last Admin: 12/04/16 12:15 Dose: 20,000 unit Heparin Sodium (Porcine) (Heparin) 5,000 unit SUB-Q Q8HR [facility] Last Admin: 12/05/16 06:24 Dose: 5,000 unit Heparin Sodium (Porcine) (Heparin) 5,000 unit IV DAIANA PRN PRN Reason: hemodialysis Last Admin: 12/04/16 13:35 Dose: 5,000 unit Hydralazine HCl (Apresoline) 50 mg PO TID [facility] Last Admin: 12/05/16 09:45 Dose: 50 mg Sodium Chloride (Nacl 0.9%) 100 mls @ 999 mls/hr IV DAIANA PRN PRN Reason: Hypotension Sodium Chloride (Nacl 0.9% 1000 Ml) 1,000 mls @ 50 mls/hr IV DIRECT [facility] Isosorbide Mononitrate (Imdur) 30 mg PO QDAY [facility] Last Admin: 12/05/16 09:45 Dose: 30 mg Memantine (Namenda Xr) 14 mg PO QDAY [facility] Last Admin: 12/05/16 09:47 Dose: 14 mg Morphine Sulfate (Morphine) 2 mg IV Q4H PRN PRN Reason: Pain, Moderate (4-6) Ondansetron HCl (Zofran) 4 mg IV Q6H PRN PRN Reason: nausea or vomiting Pantoprazole Sodium (Protonix) 40 mg PO QDAY [facility] Last Admin: 12/05/16 09:46 Dose: 40 mg Senna/Docusate Sodium (Senokot S) 2 tab PO QHS [facility] Last Admin: 12/04/16 22:59 Dose: 2 tab Tramadol HCl (Ultram) 50 mg PO Q4HR PRN PRN Reason: Pain Valsartan (Diovan) 320 mg PO QDAY [facility] Last Admin: 12/05/16 09:46 Dose: 320 mg Review of Systems ROS unobtainable: due to mental status All systems: negative Exam - Constitutional Vitals: Last Vital Signs Temp 99.5 F 12/05/16 07:50 Pulse 75 12/05/16 09:45 Resp 20 12/05/16 07:50 BP 146/67 12/05/16 09:45 Pulse Ox 95 12/05/16 07:50 Pain Intensity (0-10): denies any pain General appearance: mild distress - EENT ENT: hearing intact Lymph node exam: negative cervical - Neck Neck: supple - Respiratory Respiratory effort: Positive: normal Respiratory: bilateral: CTA - Cardiovascular Rhythm: regular - Gastrointestinal General gastrointestinal: Present: soft - Integumentary Integumentary: clear - Musculoskeletal Musculoskeletal: generalized weakness - Psychiatric Psychiatric: other (dementia) Assessment and Plan - Patient Problems (1) Anemia Current Visit: Yes Status: Acute Qualifiers: Anemia type: unspecified type Iron deficiency anemia type: I Vitamin B12 deficiency anemia type: V Folate deficiency anemia type: F Bone marrow failure anemia type: B Hemolytic anemia type: H Other causes of anemia: O Chronic kidney disease stage: C Qualified Code(s): D64.9 - Anemia, unspecified Plan to address problem: Obtain iron tibc ferritin retic b12 and folate. Myeloma work up. Could be due to GI bleed or CKD. If evaluation does not reveal cause may need bone marrow aspiration and biopsy.
--- NOTE | 2016-12-05 14:03 | Progress Note ---
Assessment and Plan 1. NATHALIA 2/2 ATN requiring dialysis, underlying CKD III 2. Pancytopenia cause unclear 3. Chronic systolic HF with EF of 10-15% 4. CAD s/p PCI of the mid LAD and mid circumflex 5. Hypotension, Plan: -last HD on Wednesday. will monitor I/Os, lytes/renal parameters off HD and assess for possible renal recovery on daily basis. -Epogen on dialysis -Hgb improved to 7,5 after 1 unit PRBC -F/u on GI recommendations -Avoid nephrotoxins Subjective Date of service: 12/05/16 Principal diagnosis: NATHALIA on CKD Interval history: Pt awake, alert, in no acute respiratory distress. Objective - Vital Signs Vital signs: Vital Signs - 12hr 12/05/16 12/05/16 12/05/16 04:00 07:50 09:45 Temperature 98.7 F 99.5 F Pulse Rate 76 74 75 Respiratory 16 20 Rate Blood Pressure 131/60 133/64 146/67 O2 Sat by Pulse 91 95 Oximetry - General Appearance General appearance: well-nourished, appears stated age EENT: ATNC, PERRL, mucous membranes moist Neck: no JVD Respiratory: Present: Clear to Ascultation Cardiology: regular, S1S2 Gastrointestinal: normal, normoactive bowel sounds Integumentary: no rash, other (no edema ) Neurologic: no focal deficit, alert and oriented x3, strength 5/5, CN 3-12 intact Psychiatric: mood/affect appropriate, cooperative - Lab 12/04/16 05:16 12/04/16 05:16 Most recent lab results Calcium 6.8 mg/dL (8.4-10.2) L 12/04/16 05:16 Phosphorus 1.80 mg/dL (2.5-4.5) L 12/03/16 21:58 Magnesium 1.30 mg/dL (1.7-2.3) L 12/03/16 21:58
[2016-12-05 14:42] LABS: Reticulocyte % 2.81 % (0.78-2.58)
[2016-12-05 15:11] LABS: Total Iron Binding Capacity 208.6 mcg/dL (250-450)
[2016-12-05] MEDS: SENOKOT S PO SCH (22:07)
[2016-12-06] MEDS: HEPARIN SUB-Q SCH ×2 (06:21→22:05)
[2016-12-06 08:43] LABS: BUN/Creatinine Ratio 6.8; Chloride 100.6 mmol/L (98-107)
[2016-12-06] MEDS: PROTONIX PO SCH (08:47)
[2016-12-06] MEDS: APRESOLINE PO SCH ×2 (08:47→22:02)
[2016-12-06] MEDS: OYSCO D 500 MG-200 UNIT PO SCH (08:48)
[2016-12-06] MEDS: NAMENDA XR PO SCH (08:48)
[2016-12-06] MEDS: BABY ASPIRIN PO SCH (08:48)
[2016-12-06] MEDS: NORVASC PO SCH (08:49)
[2016-12-06] MEDS: PLAVIX PO SCH (08:49)
--- NOTE | 2016-12-06 09:54 | Progress Note ---
Assessment and Plan Anemia s/p blood transfusion recent EGD/Flex reports mild non-erosive gastritis and hemorrhoids. No clear etiology thus far - hematology evaluation ongoing. Chronic renal disease recently initiated on dialysis Thrombocytopenia CAD s/p recent PCI of the mid LAD and mid circumflex using baremetal stents. on plavix and aspirin Severe Cardiomyopathy LVEF 10-15% on echocardiogram 10/2016 Moderate to severe mitral regurgitation Prior CVA Hypertension Recommend: Continue current therapy including DAPT unless patient has overt, life threatening bleeding. Subjective Date of service: 12/06/16 Principal diagnosis: NATHALIA on CKD Interval history: No cardiac complaints. Objective Vital Signs Temp Pulse Resp BP Pulse Ox 12/06/16 08:49 79 123/60 12/06/16 08:47 79 123/60 12/06/16 07:35 99 F 77 18 127/68 96 12/06/16 04:00 99.7 F H 82 18 103/52 97 12/05/16 23:58 99.0 F 87 18 139/72 96 12/05/16 20:00 98.0 F 77 18 143/79 100 12/05/16 15:10 99.6 F 83 16 116/57 94 12/05/16 15:08 83 120/60 - Physical Examination HEENT: Positive: PERRL Neck: Positive: trachea midline Cardiac: Positive: Reg Rate and Rhythm Lungs: Positive: clear to auscultation Abdomen: Positive: Soft, Active Bowel Sounds Extremities: Absent: edema - Labs and Meds Cardiac Enzymes 12/05/16 Range/Units 14:16 Lactate Dehydrogenase 343 H (91-180) units/L Comprehensive Metabolic Panel 12/06/16 Range/Units 07:47 Sodium 135 L (137-145) mmol/L Potassium 4.0 (3.6-5.0) mmol/L Chloride 100.6 (98-107) mmol/L Carbon Dioxide 23 (22-30) mmol/L BUN 17 (7-17) mg/dL Creatinine 2.5 H (0.7-1.2) mg/dL Glucose 90 (65-100) mg/dL Calcium 7.0 L (8.4-10.2) mg/dL
--- NOTE | 2016-12-06 10:08 | Progress Note ---
Assessment and Plan 1. NATHALIA 2/2 ATN requiring dialysis, underlying CKD III 2. Pancytopenia cause unclear 3. Chronic systolic HF with EF of 10-15% 4. CAD s/p PCI of the mid LAD and mid circumflex 5. Hypotension, Plan: -last HD on Wednesday, Cr stable around 2,5mg/dl today, pt is non-oliguric with ~ 760ml UOP/d24h. will monitor I/Os, lytes/renal parameters off HD and assess for possible renal recovery on daily basis. -Hgb improved to 7,5 after 1 unit PRBC -BP well controlled on current regimen -F/u on GI recommendations -Avoid nephrotoxins Subjective Date of service: 12/06/16 Principal diagnosis: NATHALIA on CKD Interval history: Pt awake, alert, in NAD Objective - Vital Signs Vital signs: Vital Signs - 12hr 12/05/16 12/06/16 12/06/16 23:58 04:00 07:35 Temperature 99.0 F 99.7 F H 99 F Pulse Rate 87 82 77 Respiratory 18 18 18 Rate Blood Pressure 139/72 103/52 127/68 O2 Sat by Pulse 96 97 96 Oximetry 12/06/16 12/06/16 08:47 08:49 Temperature Pulse Rate 79 79 Respiratory Rate Blood Pressure 123/60 123/60 O2 Sat by Pulse Oximetry - General Appearance General appearance: appears stated age, frail EENT: ATNC, PERRL, mucous membranes moist Neck: no JVD Respiratory: Present: Clear to Ascultation Cardiology: regular, S1S2 Gastrointestinal: normoactive bowel sounds Integumentary: no rash, other (no edema ) Neurologic: no focal deficit, alert and oriented x3, strength 5/5, CN 3-12 intact Psychiatric: mood/affect appropriate, cooperative - Lab 12/04/16 05:16 12/06/16 07:47 Most recent lab results Calcium 7.0 mg/dL (8.4-10.2) L 12/06/16 07:47 Phosphorus 1.80 mg/dL (2.5-4.5) L 12/03/16 21:58 Magnesium 1.30 mg/dL (1.7-2.3) L 12/03/16 21:58
--- NOTE | 2016-12-06 10:19 | Progress Note ---
Assessment and Plan Assessment and plan: Anemia. Patient is s/p PRBCs. Patient with recent EGD/Flex reports mild non- erosive gastritis and hemorrhoids. Hematology following. Follow-up iron tibc ferritin retic b12 and folate. Myeloma work up as well. IF evaluation does not reveal cause, the patient may need bone marrow aspiration and biopsy. Acute on CKD on dialysis. Nephrology following. Coronary artery disease. Patient s/p recent PCI of the mid LAD and mid circumflex using baremetal stents. Continue DAPT per cardiology recommendations. Severe cardiomyopathy. LVEF 10-15% or echocardiogram 10/2016. Hypertension. BP stable. Continue antihypertensive medications. Hyperlipidemia. Dementia. Supportive care, resume meds. Hx CVA Full CODE STATUS DVT prophylaxis with heparin. History Interval history: No new issues overnight. Hospitalist Physical - Constitutional Vitals: Temp Pulse Resp BP Pulse Ox 99 F 79 18 123/60 96 12/06/16 07:35 12/06/16 08:49 12/06/16 07:35 12/06/16 08:49 12/06/16 07:35 General appearance: Present: no acute distress - EENT Eyes: Present: PERRL, EOM intact ENT: hearing intact, clear oral mucosa, dentition normal - Neck Neck: Present: supple, normal ROM - Respiratory Respiratory effort: normal Respiratory: bilateral: CTA - Cardiovascular Rhythm: regular Heart Sounds: Present: S1 & S2. Absent: gallop, rub - Extremities Extremities: no ischemia, No edema, Full ROM - Abdominal General gastrointestinal: soft, non-tender, non-distended, normal bowel sounds - Integumentary Integumentary: Present: clear, warm, dry - Neurologic Neurologic: CNII-XII intact, moves all extremities Results - Labs CBC & Chem 7: 12/04/16 05:16 12/06/16 07:47 Labs: Laboratory Last Values WBC 2.8 K/mm3 (4.5-11.0) L 12/04/16 05:16 RBC 2.40 M/mm3 (3.65-5.03) L 12/04/16 05:16 Hgb 7.5 gm/dl (10.1-14.3) L 12/04/16 05:16 Hct 23.6 % (30.3-42.9) L 12/04/16 05:16 MCV 99 fl (79-97) H 12/04/16 05:16 MCH 31 pg (28-32) 12/04/16 05:16 MCHC 32 % (30-34) 12/04/16 05:16 RDW 15.9 % (13.2-15.2) H 12/04/16 05:16 Plt Count 74 K/mm3 (140-440) L 12/04/16 05:16 Lymph % (Auto) 44.6 % (13.4-35.0) H 12/04/16 05:16 [place] % (Auto) 10.7 % (0.0-7.3) H 12/04/16 05:16 Eos % (Auto) 5.4 % (0.0-4.3) H 12/04/16 05:16 Baso % (Auto) 0.4 % (0.0-1.8) 12/04/16 05:16 Lymph # 1.2 K/mm3 (1.2-5.4) 12/04/16 05:16 [place] # 0.3 K/mm3 (0.0-0.8) 12/04/16 05:16 Eos # 0.2 K/mm3 (0.0-0.4) 12/04/16 05:16 Baso # 0.0 K/mm3 (0.0-0.1) 12/04/16 05:16 Seg Neutrophils % 38.9 % (40.0-70.0) L 12/04/16 05:16 Seg Neutrophils # 1.1 K/mm3 (1.8-7.7) L 12/04/16 05:16 Percent Retic 2.81 % (0.78-2.58) H 12/05/16 14:16 PT 13.7 Sec. (12.2-14.9) 12/02/16 20:28 INR 1.00 (0.87-1.13) 12/02/16 20:28 APTT 26.3 Sec. (24.2-36.6) 12/02/16 20:28 Sodium 135 mmol/L (137-145) L 12/06/16 07:47 Potassium 4.0 mmol/L (3.6-5.0) 12/06/16 07:47 Chloride 100.6 mmol/L (98-107) 12/06/16 07:47 Carbon Dioxide 23 mmol/L (22-30) 12/06/16 07:47 Anion Gap 15 mmol/L 12/06/16 07:47 BUN 17 mg/dL (7-17) 12/06/16 07:47 Creatinine 2.5 mg/dL (0.7-1.2) H 12/06/16 07:47 Estimated GFR 23 ml/min 12/06/16 07:47 BUN/Creatinine Ratio 6.80 % 12/06/16 07:47 Glucose 90 mg/dL (65-100) 12/06/16 07:47 Calcium 7.0 mg/dL (8.4-10.2) L 12/06/16 07:47 Phosphorus 1.80 mg/dL (2.5-4.5) L 12/03/16 21:58 Magnesium 1.30 mg/dL (1.7-2.3) L 12/03/16 21:58 Iron 40 ug/dL (37-170) 12/05/16 14:16 TIBC 208.60 mcg/dL (250-450) L 12/05/16 14:16 % Saturation 19.18 % 12/05/16 14:16 Transferrin 149 mg/dl (192-382) L 12/05/16 14:16 Ferritin 247.9 ng/mL (13.0-400.0) 12/05/16 14:16 Total Bilirubin 0.30 mg/dL (0.1-1.2) 12/02/16 20:28 AST 24 units/L (5-40) 12/02/16 20:28 ALT 22 units/L (7-56) 12/02/16 20:28 Alkaline Phosphatase 89 units/L (35-129) 12/02/16 20:28 Lactate Dehydrogenase 343 units/L (91-180) H 12/05/16 14:16 Troponin T 0.955 ng/mL (0.00-0.029) H* 12/02/16 20:44 NT-Pro-B Natriuret Pep 08187 pg/mL (0-900) H 12/02/16 20:44 Total Protein 4.6 g/dL (6.3-8.2) L 12/02/16 20:28 Albumin 2.5 g/dL (3.9-5) L 12/02/16 20:28 Albumin/Globulin Ratio 1.2 % 12/02/16 20:28 Triglycerides 127 mg/dL (2-149) 12/02/16 20:44 Cholesterol 87 mg/dL (50-199) 12/02/16 20:44 LDL Cholesterol Direct 22 mg/dL (50-130) L 12/02/16 20:44 HDL Cholesterol 40 mg/dL (40-59) 12/02/16 20:44 Cholesterol/HDL Ratio 2.17 % 12/02/16 20:44 Vitamin B12 721.4 pg/mL (211-911) 12/05/16 14:16 Folate 11.41 ng/mL (7.3-26.0) 12/05/16 14:16 Blood Type O POSITIVE 12/02/16 20:25 Antibody Screen Negative 12/02/16 20:25 Crossmatch See Detail 12/02/16 20:25
[2016-12-06] MEDS: IMDUR PO SCH (12:02)
[2016-12-06] MEDS: DIOVAN PO SCH (12:02)
[2016-12-06] MEDS: SENOKOT S PO SCH (22:01)
[2016-12-06] MEDS: COREG PO SCH (22:01)
[2016-12-07] MEDS: HEPARIN SUB-Q SCH ×4 (07:05→21:38)
[2016-12-07 07:27] LABS: BUN/Creatinine Ratio 7.2; Calcium 6.9 mg/dL (8.4-10.2); Chloride 104.2 mmol/L (98-107); Potassium 3.7 mmol/L (3.6-5.0)
[2016-12-07 07:29] LABS: Creatine Kinase MB 3.5 ng/mL (0.0-4.0)
--- NOTE | 2016-12-07 09:35 | Progress Note ---
Assessment and Plan Assessment and plan: NSVT. Patient currently with Coreg twice a day. ? AICD. We will discuss with cardiology. Anemia. Patient is s/p PRBCs. Patient with recent EGD/Flex reports mild non- erosive gastritis and hemorrhoids. Hematology following. Follow-up iron tibc ferritin retic b12 and folate. Myeloma work up as well. IF evaluation does not reveal cause, the patient may need bone marrow aspiration and biopsy. Acute on CKD on dialysis. Nephrology following. Coronary artery disease. Patient s/p recent PCI of the mid LAD and mid circumflex using baremetal stents. Continue DAPT (aspirin and Plavix) per cardiology recommendations. NSTEMI. As above. Patient still with elevated troponin. Severe cardiomyopathy. LVEF 10-15% or echocardiogram 10/2016. Hypertension. BP stable. Continue antihypertensive medications. Hyperlipidemia. Dementia. Supportive care, resume meds. Hx CVA Full CODE STATUS DVT prophylaxis with heparin. History Interval history: Nursing reports patient with 25 beat run of V. tach this morning. Hospitalist Physical - Constitutional Vitals: Temp Pulse Resp BP Pulse Ox 98.9 F 78 20 142/66 96 12/07/16 08:20 12/07/16 08:20 12/07/16 08:20 12/07/16 08:20 12/07/16 08:20 General appearance: Present: no acute distress - EENT Eyes: Present: PERRL, EOM intact ENT: hearing intact, clear oral mucosa, dentition normal - Neck Neck: Present: supple, normal ROM - Respiratory Respiratory effort: normal Respiratory: bilateral: CTA - Cardiovascular Rhythm: regular Heart Sounds: Present: S1 & S2. Absent: gallop, rub - Extremities Extremities: no ischemia, No edema, Full ROM - Abdominal General gastrointestinal: soft, non-tender, non-distended, normal bowel sounds - Integumentary Integumentary: Present: clear, warm, dry - Neurologic Neurologic: CNII-XII intact, moves all extremities Results - Labs CBC & Chem 7: 12/04/16 05:16 12/07/16 06:54 Labs: Laboratory Last Values WBC 2.8 K/mm3 (4.5-11.0) L 12/04/16 05:16 RBC 2.40 M/mm3 (3.65-5.03) L 12/04/16 05:16 Hgb 7.5 gm/dl (10.1-14.3) L 12/04/16 05:16 Hct 23.6 % (30.3-42.9) L 12/04/16 05:16 MCV 99 fl (79-97) H 12/04/16 05:16 MCH 31 pg (28-32) 12/04/16 05:16 MCHC 32 % (30-34) 12/04/16 05:16 RDW 15.9 % (13.2-15.2) H 12/04/16 05:16 Plt Count 74 K/mm3 (140-440) L 12/04/16 05:16 Lymph % (Auto) 44.6 % (13.4-35.0) H 12/04/16 05:16 [place] % (Auto) 10.7 % (0.0-7.3) H 12/04/16 05:16 Eos % (Auto) 5.4 % (0.0-4.3) H 12/04/16 05:16 Baso % (Auto) 0.4 % (0.0-1.8) 12/04/16 05:16 Lymph # 1.2 K/mm3 (1.2-5.4) 12/04/16 05:16 [place] # 0.3 K/mm3 (0.0-0.8) 12/04/16 05:16 Eos # 0.2 K/mm3 (0.0-0.4) 12/04/16 05:16 Baso # 0.0 K/mm3 (0.0-0.1) 12/04/16 05:16 Seg Neutrophils % 38.9 % (40.0-70.0) L 12/04/16 05:16 Seg Neutrophils # 1.1 K/mm3 (1.8-7.7) L 12/04/16 05:16 Percent Retic 2.81 % (0.78-2.58) H 12/05/16 14:16 PT 13.7 Sec. (12.2-14.9) 12/02/16 20:28 INR 1.00 (0.87-1.13) 12/02/16 20:28 APTT 26.3 Sec. (24.2-36.6) 12/02/16 20:28 Sodium 139 mmol/L (137-145) 12/07/16 06:54 Potassium 3.7 mmol/L (3.6-5.0) 12/07/16 06:54 Chloride 104.2 mmol/L (98-107) 12/07/16 06:54 Carbon Dioxide 24 mmol/L (22-30) 12/07/16 06:54 Anion Gap 15 mmol/L 12/07/16 06:54 BUN 18 mg/dL (7-17) H 12/07/16 06:54 Creatinine 2.5 mg/dL (0.7-1.2) H 12/07/16 06:54 Estimated GFR 23 ml/min 12/07/16 06:54 BUN/Creatinine Ratio 7.20 % 12/07/16 06:54 Glucose 91 mg/dL (65-100) 12/07/16 06:54 Calcium 6.9 mg/dL (8.4-10.2) L 12/07/16 06:54 Phosphorus 1.80 mg/dL (2.5-4.5) L 12/03/16 21:58 Magnesium 1.30 mg/dL (1.7-2.3) L 12/03/16 21:58 Iron 40 ug/dL (37-170) 12/05/16 14:16 TIBC 208.60 mcg/dL (250-450) L 12/05/16 14:16 % Saturation 19.18 % 12/05/16 14:16 Transferrin 149 mg/dl (192-382) L 12/05/16 14:16 Ferritin 247.9 ng/mL (13.0-400.0) 12/05/16 14:16 Total Bilirubin 0.30 mg/dL (0.1-1.2) 12/02/16 20:28 AST 24 units/L (5-40) 12/02/16 20:28 ALT 22 units/L (7-56) 12/02/16 20:28 Alkaline Phosphatase 89 units/L (35-129) 12/02/16 20:28 Lactate Dehydrogenase 343 units/L (91-180) H 12/05/16 14:16 Total Creatine Kinase 160 units/L (30-135) H 12/07/16 06:54 CK-MB (CK-2) 3.5 ng/mL (0.0-4.0) 12/07/16 06:54 CK-MB (CK-2) Rel Index 2.1 (0-4) 12/07/16 06:54 Troponin T 0.210 ng/mL (0.00-0.029) H* D 12/07/16 06:54 NT-Pro-B Natriuret Pep 77461 pg/mL (0-900) H 12/02/16 20:44 Total Protein 4.6 g/dL (6.3-8.2) L 12/02/16 20:28 Albumin 2.5 g/dL (3.9-5) L 12/02/16 20:28 Albumin/Globulin Ratio 1.2 % 12/02/16 20:28 Triglycerides 127 mg/dL (2-149) 12/02/16 20:44 Cholesterol 87 mg/dL (50-199) 12/02/16 20:44 LDL Cholesterol Direct 22 mg/dL (50-130) L 12/02/16 20:44 HDL Cholesterol 40 mg/dL (40-59) 12/02/16 20:44 Cholesterol/HDL Ratio 2.17 % 12/02/16 20:44 Vitamin B12 721.4 pg/mL (211-911) 12/05/16 14:16 Folate 11.41 ng/mL (7.3-26.0) 12/05/16 14:16 Blood Type O POSITIVE 12/02/16 20:25 Antibody Screen Negative 12/02/16 20:25 Crossmatch See Detail 12/02/16 20:25
--- NOTE | 2016-12-07 09:39 | Progress Note ---
Assessment and Plan 1. Acute tubular necrosis on chronic kidney disease dialysis requiring. Kidney function appears to have improved. Creatinine is stable at 2.5 mg/dL last couple of days. We'll get 24-hour urine for creatinine clearance. Hold off on dialysis for now. 2. Hypotension resolving 3. Chronic systolic heart failure. Stable. 4. History of coronary artery disease status post percutaneous coronary intervention stable. 5. Anemia of chronic kidney disease with relatively iron deficiency. 6. Hypophosphatemia/hypomagnesemia Recommendations: Get 24-hour urine for creatinine clearance. Hold dialysis for now. Follow-up blood pressure. Give erythropoietin and iron replacement Follow-up magnesium and phosphorus levels Subjective Date of service: 12/07/16 Principal diagnosis: NATHALIA on CKD Interval history: Patient seen lying in bed. She has no complaints. She denies any pain, nausea vomiting. Objective - Exam Narrative Exam: [Elderly -[place] female lying in bed] in no acute distress HEENT [normocephalic atraumatic, pupils equal reactive to light, pink, clear oropharynx] Neck [supple, no thyromegaly no jugular venous distention, right internal jugular tunneled dialysis catheter] CVS [S1-S2 regular rate rhythm without murmur, rub or gallop] Chest [clear to auscultation] Abdomen [soft nondistended nontender no organomegaly no bruit bowel sounds present] Extremities [no edema no cyanosis or clubbing] Neuro [awake, alert oriented x3 no gross deficit] - Vital Signs Vital signs: Vital Signs - 12hr 12/06/16 12/07/16 12/07/16 21:59 00:16 04:00 Temperature 99.9 F H 99.3 F 98.7 F Pulse Rate 82 78 80 Respiratory 18 18 18 Rate Blood Pressure 129/62 128/80 125/57 O2 Sat by Pulse 96 95 96 Oximetry 12/07/16 12/07/16 04:40 08:20 Temperature 98.9 F Pulse Rate 77 78 Respiratory 18 20 Rate Blood Pressure 130/61 142/66 O2 Sat by Pulse 97 96 Oximetry - Lab 12/04/16 05:16 12/07/16 06:54 Most recent lab results Calcium 6.9 mg/dL (8.4-10.2) L 12/07/16 06:54 Phosphorus 1.80 mg/dL (2.5-4.5) L 12/03/16 21:58 Magnesium 1.30 mg/dL (1.7-2.3) L 12/03/16 21:58
[2016-12-07] MEDS: BABY ASPIRIN PO SCH ×2 (09:48→09:53)
[2016-12-07] MEDS: COREG PO SCH ×3 (09:48→21:36)
[2016-12-07] MEDS: NAMENDA XR PO SCH ×2 (09:48→09:52)
[2016-12-07] MEDS: OYSCO D 500 MG-200 UNIT PO SCH ×2 (09:49→09:52)
[2016-12-07] MEDS: PROTONIX PO SCH ×2 (09:49→09:53)
[2016-12-07] MEDS: PLAVIX PO SCH ×2 (09:49→09:53)
[2016-12-07] MEDS: NORVASC PO SCH ×2 (09:49→09:52)
[2016-12-07] MEDS: IMDUR PO SCH (09:51)
[2016-12-07] MEDS: DIOVAN PO SCH (09:52)
[2016-12-07] MEDS: APRESOLINE PO SCH ×4 (09:53→21:36)
--- NOTE | 2016-12-07 10:00 | Progress Note ---
Assessment and Plan Anemia s/p blood transfusion recent EGD/Flex reports mild non-erosive gastritis and hemorrhoids. Chronic renal disease recently initiated on dialysis Thrombocytopenia CAD s/p recent PCI of the mid LAD and mid circumflex using baremetal stents. on DAPT with plavix and aspirin Severe Cardiomyopathy LVEF 10-15% on echocardiogram 10/2016 Moderate to severe mitral regurgitation Prior CVA Hypertension Continue medical therapy for her cardiomyopathy and coronary artery disease. Subjective Date of service: 12/07/16 Principal diagnosis: NATHALIA on CKD Interval history: Patient denies chest pain and shortness of breath. Objective Vital Signs Temp Pulse Resp BP Pulse Ox 12/07/16 09:54 144/66 12/07/16 09:53 144/66 12/07/16 09:52 144/66 12/07/16 09:51 142/66 12/07/16 08:20 98.9 F 78 20 142/66 96 12/07/16 04:40 77 18 130/61 97 12/07/16 04:00 98.7 F 80 18 125/57 96 12/07/16 00:16 99.3 F 78 18 128/80 95 12/06/16 21:59 99.9 F H 82 18 129/62 96 12/06/16 17:00 99.5 F 84 84 H 132/60 20 L 12/06/16 12:02 80 129/61 - Physical Examination General: No Apparent Distress HEENT: Positive: PERRL Neck: Positive: trachea midline Cardiac: Positive: Reg Rate and Rhythm Lungs: Positive: Decreased Breath Sounds - Labs and Meds Cardiac Enzymes 12/07/16 Range/Units 06:54 CK-MB (CK-2) 3.5 (0.0-4.0) ng/mL Comprehensive Metabolic Panel 12/07/16 Range/Units 06:54 Sodium 139 (137-145) mmol/L Potassium 3.7 (3.6-5.0) mmol/L Chloride 104.2 (98-107) mmol/L Carbon Dioxide 24 (22-30) mmol/L BUN 18 H (7-17) mg/dL Creatinine 2.5 H (0.7-1.2) mg/dL Glucose 91 (65-100) mg/dL Calcium 6.9 L (8.4-10.2) mg/dL
[2016-12-07 13:29] LABS: Magnesium 1.4 mg/dL (1.7-2.3); Phosphorous 2.6 mg/dL (2.5-4.5)
[2016-12-07] MEDS ORDERED: MAGNESIUM SULFATE IV ONE (14:14)
[2016-12-07] MEDS: SENOKOT S PO SCH (21:38)
[2016-12-07] MEDS: ULTRAM PO PRN (23:43)
[2016-12-08 05:55] LABS: BUN/Creatinine Ratio 8.75; Calcium 7.5 mg/dL (8.4-10.2); Potassium 3.9 mmol/L (3.6-5.0)
[2016-12-08] MEDS: HEPARIN SUB-Q SCH ×3 (06:19→21:54)
--- NOTE | 2016-12-08 07:48 | Progress Note ---
Assessment and Plan 1. Acute tubular necrosis on chronic kidney disease dialysis requiring. Kidney function appears to have improved. Creatinine is stable in mid 2's last couple of days. We'll get 24-hour urine for creatinine clearance. Hold off on dialysis for now. 2. Hypotension resolved 3. Chronic systolic heart failure. Stable. 4. History of coronary artery disease status post percutaneous coronary intervention stable. 5. Anemia of chronic kidney disease with relatively iron deficiency. 6. Hypophosphatemia/hypomagnesemia. Improved with supplementation Recommendations: Follow up 24-hour urine for creatinine clearance. Continue to hold dialysis for now. Follow-up blood pressure. Give erythropoietin and iron replacement Follow-up magnesium and phosphorus levels Subjective Date of service: 12/08/16 Principal diagnosis: NATHALIA on CKD Interval history: Patient seen lying in bed. She has no complaints. She denies any pain, nausea , vomiting or shortness of breath. Objective - Exam Narrative Exam: [Elderly -[place] female lying in bed] in no acute distress HEENT [normocephalic atraumatic, pupils equal reactive to light, pink, clear oropharynx] Neck [supple, no thyromegaly no jugular venous distention, right internal jugular tunneled dialysis catheter] CVS [S1-S2 regular rate rhythm without murmur, rub or gallop] Chest [clear to auscultation] Abdomen [soft nondistended nontender no organomegaly no bruit bowel sounds present] Extremities [no edema no cyanosis or clubbing] Neuro [awake, alert oriented x3 no gross deficit] - Vital Signs Vital signs: Vital Signs - 12hr 12/07/16 12/07/16 12/07/16 21:03 21:36 23:12 Temperature 99 F Pulse Rate 77 76 Pulse Rate [ 76 Left Radial] Respiratory 16 Rate Blood Pressure 129/61 126/60 O2 Sat by Pulse 96 Oximetry 12/08/16 04:00 Temperature 98.1 F Pulse Rate 75 Pulse Rate [ Left Radial] Respiratory 18 Rate Blood Pressure 139/62 O2 Sat by Pulse Oximetry - Lab 12/04/16 05:16 12/08/16 05:17 Most recent lab results Calcium 7.5 mg/dL (8.4-10.2) L 12/08/16 05:17 Phosphorus 3.00 mg/dL (2.5-4.5) 12/08/16 05:17 Magnesium 2.00 mg/dL (1.7-2.3) 12/08/16 05:17
--- NOTE | 2016-12-08 08:59 | Progress Note ---
Assessment and Plan Anemia s/p blood transfusion recent EGD/Flex reports mild non-erosive gastritis and hemorrhoids. Chronic renal disease Thrombocytopenia CAD s/p recent PCI of the mid LAD and mid circumflex using baremetal stents. on DAPT with plavix and aspirin Severe Cardiomyopathy LVEF 10-15% on echocardiogram 10/2016 Moderate to severe mitral regurgitation Prior CVA Hypertension Hypomagnesemia Continue medical therapy for her cardiomyopathy and coronary artery disease. Awaits LifeVest placement. Due to the patient's advanced age, frailty, and poor mental status she may not be an optimal candidate in the long-term for defibrillator therapy either for primary or secondary prevention. Subjective Date of service: 12/08/16 Principal diagnosis: NATHALIA on CKD Interval history: Patient has no complaints. No reported events on telemetry overnight. Objective Vital Signs Temp Pulse Pulse Resp BP Pulse Ox 12/08/16 07:58 98.2 F 74 18 129/62 94 12/08/16 04:00 98.1 F 75 18 139/62 12/07/16 23:12 76 12/07/16 21:36 76 126/60 12/07/16 21:03 99 F 77 16 129/61 96 12/07/16 16:17 98.9 F 74 20 111/57 95 12/07/16 15:06 97 12/07/16 13:23 118/59 12/07/16 12:45 98.4 F 58 L 20 118/59 12/07/16 09:54 144/66 12/07/16 09:53 144/66 12/07/16 09:52 144/66 12/07/16 09:51 142/66 - Physical Examination General: No Apparent Distress HEENT: Positive: PERRL Neck: Positive: trachea midline Cardiac: Positive: Reg Rate and Rhythm - Labs and Meds Comprehensive Metabolic Panel 12/08/16 Range/Units 05:17 Sodium 139 (137-145) mmol/L Potassium 3.9 (3.6-5.0) mmol/L Chloride 103.0 (98-107) mmol/L Carbon Dioxide 23 (22-30) mmol/L BUN 21 H (7-17) mg/dL Creatinine 2.4 H (0.7-1.2) mg/dL Glucose 88 (65-100) mg/dL Calcium 7.5 L (8.4-10.2) mg/dL
--- NOTE | 2016-12-08 10:26 | Progress Note ---
Assessment and Plan Assessment and plan: NSVT. Continue Coreg. Patient will need life vest at discharge. Anemia. Patient is s/p PRBCs. Patient with recent EGD/Flex reports mild non- erosive gastritis and hemorrhoids. Hematology following. Follow-up iron tibc ferritin retic b12 and folate. Myeloma work up as well. IF evaluation does not reveal cause, the patient may need bone marrow aspiration and biopsy. Acute on CKD on dialysis. Nephrology wants to get 24-hour urine for creatinine clearance. Coronary artery disease. Patient s/p recent PCI of the mid LAD and mid circumflex using baremetal stents. Continue DAPT (aspirin and Plavix) per cardiology recommendations. NSTEMI. As above. Patient still with elevated troponin. Severe cardiomyopathy. LVEF 10-15% or echocardiogram 10/2016. Chronic systolic heart failure. Continue medications per cardiology. Hypertension. BP stable. Continue antihypertensive medications. Hyperlipidemia. Dementia. Supportive care, resume meds. Hx CVA Full CODE STATUS DVT prophylaxis with heparin. History Interval history: No new issues overnight. Hospitalist Physical - Constitutional Vitals: Temp Pulse Resp BP Pulse Ox 98.2 F 74 18 129/62 94 12/08/16 07:58 12/08/16 07:58 12/08/16 07:58 12/08/16 07:58 12/08/16 07:58 General appearance: Present: no acute distress - EENT Eyes: Present: PERRL, EOM intact ENT: hearing intact, clear oral mucosa, dentition normal - Neck Neck: Present: supple, normal ROM - Respiratory Respiratory effort: normal Respiratory: bilateral: CTA - Cardiovascular Rhythm: regular Heart Sounds: Present: S1 & S2. Absent: gallop, rub - Extremities Extremities: no ischemia, No edema, Full ROM - Abdominal General gastrointestinal: soft, non-tender, non-distended, normal bowel sounds - Integumentary Integumentary: Present: clear, warm, dry - Neurologic Neurologic: CNII-XII intact, moves all extremities Results - Labs CBC & Chem 7: 12/04/16 05:16 12/08/16 05:17 Labs: Laboratory Last Values WBC 2.8 K/mm3 (4.5-11.0) L 12/04/16 05:16 RBC 2.40 M/mm3 (3.65-5.03) L 12/04/16 05:16 Hgb 7.5 gm/dl (10.1-14.3) L 12/04/16 05:16 Hct 23.6 % (30.3-42.9) L 12/04/16 05:16 MCV 99 fl (79-97) H 12/04/16 05:16 MCH 31 pg (28-32) 12/04/16 05:16 MCHC 32 % (30-34) 12/04/16 05:16 RDW 15.9 % (13.2-15.2) H 12/04/16 05:16 Plt Count 74 K/mm3 (140-440) L 12/04/16 05:16 Lymph % (Auto) 44.6 % (13.4-35.0) H 12/04/16 05:16 [place] % (Auto) 10.7 % (0.0-7.3) H 12/04/16 05:16 Eos % (Auto) 5.4 % (0.0-4.3) H 12/04/16 05:16 Baso % (Auto) 0.4 % (0.0-1.8) 12/04/16 05:16 Lymph # 1.2 K/mm3 (1.2-5.4) 12/04/16 05:16 [place] # 0.3 K/mm3 (0.0-0.8) 12/04/16 05:16 Eos # 0.2 K/mm3 (0.0-0.4) 12/04/16 05:16 Baso # 0.0 K/mm3 (0.0-0.1) 12/04/16 05:16 Seg Neutrophils % 38.9 % (40.0-70.0) L 12/04/16 05:16 Seg Neutrophils # 1.1 K/mm3 (1.8-7.7) L 12/04/16 05:16 Percent Retic 2.81 % (0.78-2.58) H 12/05/16 14:16 PT 13.7 Sec. (12.2-14.9) 12/02/16 20:28 INR 1.00 (0.87-1.13) 12/02/16 20:28 APTT 26.3 Sec. (24.2-36.6) 12/02/16 20:28 Sodium 139 mmol/L (137-145) 12/08/16 05:17 Potassium 3.9 mmol/L (3.6-5.0) 12/08/16 05:17 Chloride 103.0 mmol/L (98-107) 12/08/16 05:17 Carbon Dioxide 23 mmol/L (22-30) 12/08/16 05:17 Anion Gap 17 mmol/L 12/08/16 05:17 BUN 21 mg/dL (7-17) H 12/08/16 05:17 Creatinine 2.4 mg/dL (0.7-1.2) H 12/08/16 05:17 Estimated GFR 24 ml/min 12/08/16 05:17 BUN/Creatinine Ratio 8.75 % 12/08/16 05:17 Glucose 88 mg/dL (65-100) 12/08/16 05:17 Calcium 7.5 mg/dL (8.4-10.2) L 12/08/16 05:17 Phosphorus 3.00 mg/dL (2.5-4.5) 12/08/16 05:17 Magnesium 2.00 mg/dL (1.7-2.3) 12/08/16 05:17 Iron 40 ug/dL (37-170) 12/05/16 14:16 TIBC 208.60 mcg/dL (250-450) L 12/05/16 14:16 % Saturation 19.18 % 12/05/16 14:16 Transferrin 149 mg/dl (192-382) L 12/05/16 14:16 Ferritin 247.9 ng/mL (13.0-400.0) 12/05/16 14:16 Total Bilirubin 0.30 mg/dL (0.1-1.2) 12/02/16 20:28 AST 24 units/L (5-40) 12/02/16 20:28 ALT 22 units/L (7-56) 12/02/16 20:28 Alkaline Phosphatase 89 units/L (35-129) 12/02/16 20:28 Lactate Dehydrogenase 343 units/L (91-180) H 12/05/16 14:16 Total Creatine Kinase 160 units/L (30-135) H 12/07/16 06:54 CK-MB (CK-2) 3.5 ng/mL (0.0-4.0) 12/07/16 06:54 CK-MB (CK-2) Rel Index 2.1 (0-4) 12/07/16 06:54 Troponin T 0.210 ng/mL (0.00-0.029) H* D 12/07/16 06:54 NT-Pro-B Natriuret Pep 76347 pg/mL (0-900) H 12/02/16 20:44 Total Protein 4.6 g/dL (6.3-8.2) L 12/02/16 20:28 Albumin 2.5 g/dL (3.9-5) L 12/02/16 20:28 Albumin/Globulin Ratio 1.2 % 12/02/16 20:28 Triglycerides 127 mg/dL (2-149) 12/02/16 20:44 Cholesterol 87 mg/dL (50-199) 12/02/16 20:44 LDL Cholesterol Direct 22 mg/dL (50-130) L 12/02/16 20:44 HDL Cholesterol 40 mg/dL (40-59) 12/02/16 20:44 Cholesterol/HDL Ratio 2.17 % 12/02/16 20:44 Vitamin B12 721.4 pg/mL (211-911) 12/05/16 14:16 Folate 11.41 ng/mL (7.3-26.0) 12/05/16 14:16 Blood Type O POSITIVE 12/02/16 20:25 Antibody Screen Negative 12/02/16 20:25 Crossmatch See Detail 12/02/16 20:25
[2016-12-08] MEDS: DIOVAN PO SCH (10:32)
[2016-12-08] MEDS: PROTONIX PO SCH (10:33)
[2016-12-08] MEDS: COREG PO SCH ×2 (10:33→21:53)
[2016-12-08] MEDS: NORVASC PO SCH (10:33)
[2016-12-08] MEDS: IMDUR PO SCH (10:33)
[2016-12-08] MEDS: OYSCO D 500 MG-200 UNIT PO SCH (10:34)
[2016-12-08] MEDS: NAMENDA XR PO SCH (10:34)
[2016-12-08] MEDS: PLAVIX PO SCH (10:34)
[2016-12-08] MEDS: BABY ASPIRIN PO SCH (10:34)
[2016-12-08] MEDS: APRESOLINE PO SCH ×3 (10:34→21:51)
[2016-12-08] MEDS: PROCRIT SUB-Q SCH (10:45)
--- NOTE | 2016-12-08 16:46 | Hem/Onc Progress Note ---
Assessment and Plan - Patient Problems (1) Anemia Current Visit: Yes Status: Acute Qualifiers: Anemia type: unspecified type Iron deficiency anemia type: I Vitamin B12 deficiency anemia type: V Folate deficiency anemia type: F Bone marrow failure anemia type: B Hemolytic anemia type: H Other causes of anemia: O Chronic kidney disease stage: C Qualified Code(s): D64.9 - Anemia, unspecified Plan to address problem: Workup unremarkable so far. Will need bone marrow aspiration and biopsy. Daughter didnot olive picker phone. Subjective Interval history: Confusion. No complains. Objective - Constitutional Vitals: Last Vital Signs Temp 98.1 F 12/08/16 11:54 Pulse 72 12/08/16 11:54 Resp 20 12/08/16 11:54 BP 129/61 12/08/16 14:14 Pulse Ox 94 12/08/16 11:54 - Respiratory Respiratory: bilateral: CTA - Cardiovascular Rhythm: regular - Labs Lab Results: Laboratory Results - last 24 hr 12/07/16 12/08/16 12:00 05:17 Sodium 139 Potassium 3.9 Chloride 103.0 Carbon Dioxide 23 Anion Gap 17 BUN 21 H Creatinine 2.4 H Estimated GFR 24 BUN/Creatinine Ratio 8.75 Glucose 88 Calcium 7.5 L Phosphorus 3.00 Magnesium 2.00 Urine Total Volume 550 Urine Creatinine 124.2 H Ur Creatinine 24 Hour 0.7 L
[2016-12-08] MEDS: SENOKOT S PO SCH (21:52)
[2016-12-09 04:36] LABS: Calcium 7.6 mg/dL (8.4-10.2)
[2016-12-09 04:37] LABS: Chloride 104.3 mmol/L (98-107); Potassium 4.1 mmol/L (3.6-5.0)
[2016-12-09] MEDS: HEPARIN SUB-Q SCH ×3 (05:08→22:00)
[2016-12-09] MEDS: NORVASC PO SCH (10:03)
[2016-12-09] MEDS: IMDUR PO SCH (10:03)
[2016-12-09] MEDS: DIOVAN PO SCH (10:03)
[2016-12-09] MEDS: BABY ASPIRIN PO SCH (10:03)
[2016-12-09] MEDS: PROTONIX PO SCH (10:03)
[2016-12-09] MEDS: COREG PO SCH ×2 (10:04→22:02)
[2016-12-09] MEDS: APRESOLINE PO SCH ×3 (10:04→22:04)
[2016-12-09] MEDS: OYSCO D 500 MG-200 UNIT PO SCH (10:04)
[2016-12-09] MEDS: PLAVIX PO SCH (10:05)
--- NOTE | 2016-12-09 10:06 | Progress Note ---
Assessment and Plan Anemia s/p blood transfusion recent EGD/Flex reports mild non-erosive gastritis and hemorrhoids. Chronic renal disease Thrombocytopenia CAD s/p recent PCI of the mid LAD and mid circumflex using baremetal stents. on DAPT with plavix and aspirin Severe Cardiomyopathy LVEF 10-15% on echocardiogram 10/2016 Moderate to severe mitral regurgitation Prior CVA Hypertension Hypomagnesemia NSVT, pt remains asymptomatic Recommendations: Continue medical therapy for her cardiomyopathy and coronary artery disease. LifeVest on discharge. Due to the patient's advanced age, frailty, and poor mental status she may not be an optimal candidate in the long-term for defibrillator therapy either for primary or secondary prevention. Subjective Date of service: 12/09/16 Principal diagnosis: NATHALIA on CKD Interval history: Patient has no complaints. Objective Vital Signs Temp Pulse Resp Resp BP Pulse Ox 12/09/16 07:52 97.9 F 82 18 121/70 96 12/09/16 04:00 97.8 F 77 18 131/62 12/09/16 02:30 18 12/08/16 22:00 98.7 F 71 16 143/63 94 12/08/16 21:53 73 116/57 12/08/16 21:51 73 116/57 12/08/16 21:50 73 18 116/57 12/08/16 21:48 98.7 F 71 16 143/63 94 12/08/16 16:15 98.5 F 74 20 114/54 97 12/08/16 14:14 129/61 12/08/16 11:54 98.1 F 72 20 129/61 94 12/08/16 10:34 131/94 12/08/16 10:33 131/94 12/08/16 10:32 131/74 - Physical Examination General: No Apparent Distress HEENT: Positive: PERRL Neck: Positive: trachea midline Cardiac: Positive: Reg Rate and Rhythm Lungs: Positive: Decreased Breath Sounds - Labs and Meds Comprehensive Metabolic Panel 12/09/16 Range/Units 03:48 Sodium 139 (137-145) mmol/L Potassium 4.1 (3.6-5.0) mmol/L Chloride 104.3 (98-107) mmol/L Carbon Dioxide 22 (22-30) mmol/L BUN 23 H (7-17) mg/dL Creatinine 2.3 H (0.7-1.2) mg/dL Glucose 82 (65-100) mg/dL Calcium 7.6 L (8.4-10.2) mg/dL
--- NOTE | 2016-12-09 10:50 | Discharge Summary ---
Providers - Providers Date of Admission: 12/02/16 23:26 Date of discharge: 12/14/16 Attending physician: MERCEDES TAI 12/02/16 23:36 Consult to Physician [CONS] Routine Consulting Provider: RANULFO CONTRERAS Reason For Exam: ESRD Place consult to:: DR. CONTRERAS Notified:: OFFICE Phone number called:: [phone] Was contact made?: Yes If yes, spoke with:: KISHORE Time called:: 09:35 Comment:: BRY NOTIFIED 12/03/16 11:09 Consult to Physician [CONS] Routine Consulting Provider: KIRA CAMPOS Reason For Exam: Anemia Place consult to:: DR. Jose VAIL Notified:: OFFICE Phone number called:: [phone] Was contact made?: Yes If yes, spoke with:: MARI Time called:: 11:32 Comment:: BRY NOTIFIED 12/03/16 12:08 Consult to Physician [CONS] Routine Consulting Provider: RANULFO CONTRERAS Reason For Exam: ESRD Place consult to:: DR. CONTRERAS Notified:: 12/03/16 14:12 Consult to Physician [CONS] Routine Consulting Provider: SHIRA CLARK Reason For Exam: cad Place consult to:: BUD FERNANDO Notified:: BUD Phone number called:: IN HOUSE Was contact made?: Yes If yes, spoke with:: BUD Time called:: 16:00 Comment:: BRY NOTIFIED 12/05/16 11:06 Consult to Physician [CONS] Routine Consulting Provider: DEEPAK CRUZ Reason For Exam: anemia Place consult to:: dr. cruz Notified:: answering service Phone number called:: Was contact made?: Yes If yes, spoke with:: jaun Time called:: 11:52 Primary care physician: [employer] Hospitalization Condition: Stable Hospital course: 71-year-old female with past medical history significant for NATHALIA requiring dialysis, severe cardiomyopathy, ejection fraction 10-15%, recent non-STEMI, hypertension, hyperlipidemia and dementia who was sent from out [facility] dialysis center 2/2 hypotension and low hgb count(6.5). Her dialysis days are MWF and her last HD was on Wednesday prior to admission. Wednesday HD was not done secondary to hypotension. In the emergency room, Pt c/o fatigue other soriano no new compliants. The patient had no obvious bleeding from anywhere. The patient was seen by GI consultation reported patient had recent GI workup that was benign. GI recommended hematology consultation for anemia and thrombocytopenia. GI also had no plans to have any endoscopy at this time. Considerations for possible capsule endoscopy for small bowel evaluation as an outpatient. The patient was also seen by nephrology and underwent her scheduled hemodialysis treatments. Cardiology also saw the patient in consultation for the cardiac problems as noted above and recommended the DAPT therapy to be continued for at least one month. Cardiology recommended medical therapy for her cardiomyopathy and coronary artery disease. Patient was seen by hematology and had anemia workup with iron, TIBC, ferritin, retic, B12, folate and myeloma which has been negative thus far. Hematology recommended for bone marrow biopsy which will likely be done as an outpatient. Other complications during the hospital stay included episode of recurrent nonsustained V. tach. Cardiology recommended a life vest at discharge. Cardiology reported that due to the patient's advanced age, frailty, and poor mental status she may not be an optimal candidate in the long-term for defibrillator therapy either for primary or secondary prevention. Case management was consulted with regards to discharge back to SNF. Arrangements were made and patient is felt to have received maximal hospital benefit. Therefore, patient will be discharged home. Dedicated discharge time 42 minutes. Disposition: / [facility] Time spent for discharge: 42 - Discharge Diagnoses (1) Chronic systolic (congestive) heart failure Status: Acute (2) Anemia Status: Acute Qualifiers: Anemia type: unspecified type Iron deficiency anemia type: I Vitamin B12 deficiency anemia type: V Folate deficiency anemia type: F Bone marrow failure anemia type: B Hemolytic anemia type: H Other causes of anemia: O Chronic kidney disease stage: C Qualified Code(s): D64.9 - Anemia, unspecified (3) Acute kidney injury superimposed on CKD Status: Acute (4) Anemia Status: Acute Qualifiers: Anemia type: A Iron deficiency anemia type: I Vitamin B12 deficiency anemia type: V Folate deficiency anemia type: F Bone marrow failure anemia type: B Hemolytic anemia type: H Other causes of anemia: O Chronic kidney disease stage: C (5) Thrombocytopenia Status: Acute (6) HTN (hypertension) Status: Chronic Qualifiers: Hypertension type: essential hypertension Qualified Code(s): I10 - Essential (primary) hypertension Core Measure Documentation - Palliative Care Palliative Care/ Comfort Measures: Not Applicable - Core Measures Any of the following diagnoses?: heart failure - Heart Failure Discharge Requirements JEF/ARB for LVSD if EF <40%: Yes Beta abril at discharge: Yes Exam - Constitutional Vitals: Temp Pulse Resp BP Pulse Ox 97.9 F 82 18 129/71 96 12/09/16 07:52 12/09/16 07:52 12/09/16 07:52 12/09/16 10:04 12/09/16 07:52 General appearance: Present: no acute distress, well-nourished - EENT Eyes: Present: PERRL ENT: hearing intact, clear oral mucosa - Neck Neck: Present: supple, normal ROM - Respiratory Respiratory effort: normal Respiratory: bilateral: CTA - Cardiovascular Heart Sounds: Present: S1 & S2. Absent: rub, click - Extremities Extremities: pulses symmetrical, No edema Peripheral Pulses: within normal limits - Abdominal General gastrointestinal: Present: soft, non-tender, non-distended, normal bowel sounds Female genitourinary: Present: normal - Integumentary Integumentary: Present: clear, warm, dry - Musculoskeletal Musculoskeletal: gait normal, strength equal bilaterally - Psychiatric Psychiatric: appropriate mood/affect, intact judgment & insight - Neurologic Neurologic: CNII-XII intact, moves all extremities Plan Activity: no restrictions Diet: low fat, low cholesterol, low salt Durable Medical Equipment Needed Upon Discharge: other (LIfeVest) Additional Instructions: Outpatient capsule endoscopy with Dr. Campos. Outpatient Bone Marrow aspiration and biopsy with Dr. Lencho Vernon Follow up with: REGAN JOY MD [Primary Care Provider] - 3-5 Days LENCHO VERNON MD [Staff Physician] - 7 Days KIRA CAMPOS MD [Staff Physician] - 7 Days MARIKA LEWIS MD [Staff Physician] - 7 Days ADRIANA MACK MD [Staff Physician] - 7 Days Prescriptions: Ferrous Gluconate [Iron 236 MG tab] 236 mg PO DAILY #30 tablet
--- NOTE | 2016-12-09 13:29 | Progress Note ---
Assessment and Plan 1. Acute tubular necrosis on chronic kidney disease dialysis requiring. Kidney function appears to have improved. Creatinine is stable in mid 2's last couple of days. 24-hour urine for creatinine clearance was 21 mls/min. Hold off on dialysis for now. 2. Hypotension resolved 3. Chronic systolic heart failure. Stable. Patient is on ARB 4. History of coronary artery disease status post percutaneous coronary intervention stable. 5. Anemia of chronic kidney disease with relatively iron deficiency. 6. Hypophosphatemia/hypomagnesemia. Improved with supplementation Recommendations: Continue to hold dialysis for now. Follow up Labs in 1 week and office visit thereafter. If remains stable, DC Permacath as Out Patient Follow-up blood pressure as Out Pt. Give erythropoietin Subjective Date of service: 12/09/16 Principal diagnosis: NATHALIA on CKD Interval history: Patient seen lying in bed. She has no complaints. She denies any pain, nausea , vomiting or shortness of breath. Objective - Exam Narrative Exam: [Elderly -[place]an female lying in bed] in no acute distress HEENT [normocephalic atraumatic, pupils equal reactive to light, pink, clear oropharynx] Neck [supple, no thyromegaly no jugular venous distention, right internal jugular tunneled dialysis catheter] CVS [S1-S2 regular rate rhythm without murmur, rub or gallop] Chest [clear to auscultation] Abdomen [soft nondistended nontender no organomegaly no bruit bowel sounds present] Extremities [no edema no cyanosis or clubbing] Neuro [awake, alert oriented x3 no gross deficit] - Vital Signs Vital signs: Vital Signs - 12hr 12/09/16 12/09/16 12/09/16 02:30 04:00 07:52 Temperature 97.8 F 97.9 F Pulse Rate 77 82 Respiratory 18 18 Rate Respiratory 18 Rate [denies pain] Blood Pressure 131/62 121/70 O2 Sat by Pulse 96 Oximetry 12/09/16 12/09/16 10:03 10:04 Temperature Pulse Rate Respiratory Rate Respiratory Rate [denies pain] Blood Pressure 129/71 129/71 O2 Sat by Pulse Oximetry - Lab 12/04/16 05:16 12/09/16 03:48 Most recent lab results Calcium 7.6 mg/dL (8.4-10.2) L 12/09/16 03:48 Phosphorus 3.00 mg/dL (2.5-4.5) 12/08/16 05:17 Magnesium 2.00 mg/dL (1.7-2.3) 12/08/16 05:17 Urine Creatinine 124.2 mg/dL (0.1-20.0) H 12/07/16 12:00
[2016-12-09] MEDS: NAMENDA XR PO SCH (14:33)
[2016-12-09] MEDS: SENOKOT S PO SCH (22:01)
[2016-12-10 04:43] LABS: Albumin 2.2 g/dL (3.8-4.8); Gamma Globulin 0.7 g/dL (0.8-1.7); Interpretation Consistent with
[2016-12-10] MEDS: HEPARIN SUB-Q SCH ×3 (06:07→23:20)
[2016-12-10] MEDS: APRESOLINE PO SCH ×3 (08:30→23:20)
--- NOTE | 2016-12-10 09:06 | Progress Note ---
Assessment and Plan NSVT. Continue Coreg. Patient will need life vest at discharge. Anemia. Patient is s/p PRBCs. Patient with recent EGD/Flex reports mild non- erosive gastritis and hemorrhoids. Hematology following. Follow-up iron tibc ferritin retic b12 and folate. Myeloma work up as well. Bone marrow aspiration and biopsy as outpatient. Acute on CKD on dialysis. Nephrology wants to get 24-hour urine for creatinine clearance. Coronary artery disease. Patient s/p recent PCI of the mid LAD and mid circumflex using baremetal stents. Continue DAPT (aspirin and Plavix) per cardiology recommendations. NSTEMI. As above. Patient still with elevated troponin. Severe cardiomyopathy. LVEF 10-15% or echocardiogram 10/2016. Chronic systolic heart failure. Continue medications per cardiology. Hypertension. BP stable. Continue antihypertensive medications. Hyperlipidemia. Dementia. Supportive care, resume meds. Hx CVA Full CODE STATUS DVT prophylaxis with heparin. - Patient Problems (1) Chronic systolic (congestive) heart failure Current Visit: Yes Status: Acute (2) Anemia Current Visit: Yes Status: Acute Qualifiers: Anemia type: unspecified type Iron deficiency anemia type: I Vitamin B12 deficiency anemia type: V Folate deficiency anemia type: F Bone marrow failure anemia type: B Hemolytic anemia type: H Other causes of anemia: O Chronic kidney disease stage: C Qualified Code(s): D64.9 - Anemia, unspecified (3) Acute kidney injury superimposed on CKD Current Visit: No Status: Acute (4) Anemia Current Visit: No Status: Acute Qualifiers: Anemia type: A Iron deficiency anemia type: I Vitamin B12 deficiency anemia type: V Folate deficiency anemia type: F Bone marrow failure anemia type: B Hemolytic anemia type: H Other causes of anemia: O Chronic kidney disease stage: C (5) Thrombocytopenia Current Visit: No Status: Acute (6) HTN (hypertension) Current Visit: No Status: Chronic Qualifiers: Hypertension type: essential hypertension Qualified Code(s): I10 - Essential (primary) hypertension Subjective Date of service: 12/09/16 Principal diagnosis: NATHALIA on CKD Interval history: No new issues overnight. Objective - Constitutional Vitals: Vital Signs - 12hr 12/09/16 12/09/16 12/09/16 21:14 22:02 22:04 Temperature 98.9 F Pulse Rate 77 77 77 Pulse Rate [ Left Radial] Respiratory 16 Rate Blood Pressure 134/60 134/60 134/60 O2 Sat by Pulse 96 Oximetry 12/10/16 12/10/16 12/10/16 01:00 04:00 07:25 Temperature 98.9 F 98.5 F Pulse Rate 75 77 Pulse Rate [ 77 Left Radial] Respiratory 16 18 18 Rate Blood Pressure 135/63 147/67 O2 Sat by Pulse 96 97 Oximetry General appearance: Present: no acute distress, well-nourished - EENT Eyes: PERRL, EOM intact ENT: hearing intact, clear oral mucosa Ears: bilateral: normal - Neck Neck: supple, normal ROM - Respiratory Respiratory effort: normal Respiratory: bilateral: CTA - Breasts Breasts: normal - Cardiovascular Rhythm: regular Heart Sounds: Present: S1 & S2. Absent: gallop, rub Extremities: pulses intact, No edema, normal color, Full ROM - Gastrointestinal General gastrointestinal: Present: soft, non-tender, non-distended, normal bowel sounds - Genitourinary Female genitourinary: normal - Integumentary Integumentary: clear, warm, dry - Musculoskeletal Musculoskeletal: 1, strength equal bilaterally - Neurologic Neurologic: moves all extremities - Psychiatric Psychiatric: memory intact, appropriate mood/affect, intact judgment & insight - Labs CBC & Chem 7: 12/04/16 05:16 12/09/16 03:48 Labs: Abnormal lab results 12/05/16 Range/Units 14:16 Serum Total Protein 4.6 L (6.1-8.1) g/dL Albumin 2.2 L (3.8-4.8) g/dL [id number] 0.4 H (0.2-0.3) g/dL Gamma Globulins 0.7 L (0.8-1.7) g/dL PEP Interpretation Consistent with H
--- NOTE | 2016-12-10 09:07 | Progress Note ---
Assessment and Plan Assessment and plan: NSVT. Continue Coreg. Patient will need life vest at discharge. Anemia. Patient is s/p PRBCs. Patient with recent EGD/Flex reports mild non- erosive gastritis and hemorrhoids. Hematology following. Follow-up iron tibc ferritin retic b12 and folate. Myeloma work up as well. Bone marrow aspiration and biopsy as outpatient. Acute on CKD on dialysis. Nephrology wants to get 24-hour urine for creatinine clearance. Coronary artery disease. Patient s/p recent PCI of the mid LAD and mid circumflex using baremetal stents. Continue DAPT (aspirin and Plavix) per cardiology recommendations. NSTEMI. As above. Patient still with elevated troponin. Severe cardiomyopathy. LVEF 10-15% or echocardiogram 10/2016. Chronic systolic heart failure. Continue medications per cardiology. Hypertension. BP stable. Continue antihypertensive medications. Hyperlipidemia. Dementia. Supportive care, resume meds. Hx CVA Full CODE STATUS DVT prophylaxis with heparin. Disposition. Patient was denied acceptance at [place] due to LifeVest. Case management attempting to find new SNF placement - Patient Problems (1) Chronic systolic (congestive) heart failure Current Visit: Yes Status: Acute (2) Anemia Current Visit: Yes Status: Acute Qualifiers: Anemia type: unspecified type Iron deficiency anemia type: I Vitamin B12 deficiency anemia type: V Folate deficiency anemia type: F Bone marrow failure anemia type: B Hemolytic anemia type: H Other causes of anemia: O Chronic kidney disease stage: C Qualified Code(s): D64.9 - Anemia, unspecified (3) Acute kidney injury superimposed on CKD Current Visit: No Status: Acute (4) Anemia Current Visit: No Status: Acute Qualifiers: Anemia type: A Iron deficiency anemia type: I Vitamin B12 deficiency anemia type: V Folate deficiency anemia type: F Bone marrow failure anemia type: B Hemolytic anemia type: H Other causes of anemia: O Chronic kidney disease stage: C (5) Thrombocytopenia Current Visit: No Status: Acute (6) HTN (hypertension) Current Visit: No Status: Chronic Qualifiers: Hypertension type: essential hypertension Qualified Code(s): I10 - Essential (primary) hypertension History Interval history: No new issues overnight. Hospitalist Physical - Constitutional Vitals: Temp Pulse Resp BP Pulse Ox 98.5 F 77 18 147/67 97 12/10/16 07:25 12/10/16 07:25 12/10/16 07:25 12/10/16 07:25 12/10/16 07:25 General appearance: Present: no acute distress, well-nourished - EENT Eyes: Present: PERRL, EOM intact ENT: hearing intact, clear oral mucosa, dentition normal - Neck Neck: Present: supple, normal ROM - Respiratory Respiratory effort: normal Respiratory: bilateral: CTA - Cardiovascular Rhythm: regular Heart Sounds: Present: S1 & S2. Absent: gallop, rub - Extremities Extremities: no ischemia, No edema, Full ROM - Abdominal General gastrointestinal: soft, non-tender, non-distended, normal bowel sounds - Integumentary Integumentary: Present: clear, warm, dry - Neurologic Neurologic: CNII-XII intact, moves all extremities Results - Labs CBC & Chem 7: 12/04/16 05:16 12/09/16 03:48 Labs: Laboratory Last Values WBC 2.8 K/mm3 (4.5-11.0) L 12/04/16 05:16 RBC 2.40 M/mm3 (3.65-5.03) L 12/04/16 05:16 Hgb 7.5 gm/dl (10.1-14.3) L 12/04/16 05:16 Hct 23.6 % (30.3-42.9) L 12/04/16 05:16 MCV 99 fl (79-97) H 12/04/16 05:16 MCH 31 pg (28-32) 12/04/16 05:16 MCHC 32 % (30-34) 12/04/16 05:16 RDW 15.9 % (13.2-15.2) H 12/04/16 05:16 Plt Count 74 K/mm3 (140-440) L 12/04/16 05:16 Lymph % (Auto) 44.6 % (13.4-35.0) H 12/04/16 05:16 [place] % (Auto) 10.7 % (0.0-7.3) H 12/04/16 05:16 Eos % (Auto) 5.4 % (0.0-4.3) H 12/04/16 05:16 Baso % (Auto) 0.4 % (0.0-1.8) 12/04/16 05:16 Lymph # 1.2 K/mm3 (1.2-5.4) 12/04/16 05:16 [place] # 0.3 K/mm3 (0.0-0.8) 12/04/16 05:16 Eos # 0.2 K/mm3 (0.0-0.4) 12/04/16 05:16 Baso # 0.0 K/mm3 (0.0-0.1) 12/04/16 05:16 Seg Neutrophils % 38.9 % (40.0-70.0) L 12/04/16 05:16 Seg Neutrophils # 1.1 K/mm3 (1.8-7.7) L 12/04/16 05:16 Percent Retic 2.81 % (0.78-2.58) H 12/05/16 14:16 PT 13.7 Sec. (12.2-14.9) 12/02/16 20:28 INR 1.00 (0.87-1.13) 12/02/16 20:28 APTT 26.3 Sec. (24.2-36.6) 12/02/16 20:28 Sodium 139 mmol/L (137-145) 12/09/16 03:48 Potassium 4.1 mmol/L (3.6-5.0) 12/09/16 03:48 Chloride 104.3 mmol/L (98-107) 12/09/16 03:48 Carbon Dioxide 22 mmol/L (22-30) 12/09/16 03:48 Anion Gap 17 mmol/L 12/09/16 03:48 BUN 23 mg/dL (7-17) H 12/09/16 03:48 Creatinine 2.3 mg/dL (0.7-1.2) H 12/09/16 03:48 Estimated GFR 25 ml/min 12/09/16 03:48 BUN/Creatinine Ratio 10.00 % 12/09/16 03:48 Glucose 82 mg/dL (65-100) 12/09/16 03:48 POC Glucose 84 (70-105) 12/09/16 06:41 Calcium 7.6 mg/dL (8.4-10.2) L 12/09/16 03:48 Phosphorus 3.00 mg/dL (2.5-4.5) 12/08/16 05:17 Magnesium 2.00 mg/dL (1.7-2.3) 12/08/16 05:17 Iron 40 ug/dL (37-170) 12/05/16 14:16 TIBC 208.60 mcg/dL (250-450) L 12/05/16 14:16 % Saturation 19.18 % 12/05/16 14:16 Transferrin 149 mg/dl (192-382) L 12/05/16 14:16 Ferritin 247.9 ng/mL (13.0-400.0) 12/05/16 14:16 Total Bilirubin 0.30 mg/dL (0.1-1.2) 12/02/16 20:28 AST 24 units/L (5-40) 12/02/16 20:28 ALT 22 units/L (7-56) 12/02/16 20:28 Alkaline Phosphatase 89 units/L (35-129) 12/02/16 20:28 Lactate Dehydrogenase 343 units/L (91-180) H 12/05/16 14:16 Total Creatine Kinase 160 units/L (30-135) H 12/07/16 06:54 CK-MB (CK-2) 3.5 ng/mL (0.0-4.0) 12/07/16 06:54 CK-MB (CK-2) Rel Index 2.1 (0-4) 12/07/16 06:54 Troponin T 0.210 ng/mL (0.00-0.029) H* D 12/07/16 06:54 NT-Pro-B Natriuret Pep 46815 pg/mL (0-900) H 12/02/16 20:44 Serum Total Protein 4.6 g/dL (6.1-8.1) L 12/05/16 14:16 Total Protein 4.6 g/dL (6.3-8.2) L 12/02/16 20:28 Albumin 2.2 g/dL (3.8-4.8) L 12/05/16 14:16 Albumin/Globulin Ratio 1.2 % 12/02/16 20:28 Aigvl-3-Qfuwvdteo 0.4 g/dL (0.2-0.3) H 12/05/16 14:16 Bixtt-3-Senaeuwzs 0.8 g/dL (0.5-0.9) 12/05/16 14:16 Beta Globulins 0.2 g/dL (0.2-0.5) 12/05/16 14:16 Gamma Globulins 0.7 g/dL (0.8-1.7) L 12/05/16 14:16 Abnorm Protein Band 1 see below 12/05/16 14:16 PEP Interpretation Consistent with H 12/05/16 14:16 Triglycerides 127 mg/dL (2-149) 12/02/16 20:44 Cholesterol 87 mg/dL (50-199) 12/02/16 20:44 LDL Cholesterol Direct 22 mg/dL (50-130) L 12/02/16 20:44 HDL Cholesterol 40 mg/dL (40-59) 12/02/16 20:44 Cholesterol/HDL Ratio 2.17 % 12/02/16 20:44 Vitamin B12 721.4 pg/mL (211-911) 12/05/16 14:16 Folate 11.41 ng/mL (7.3-26.0) 12/05/16 14:16 Urine Total Volume 550 12/07/16 12:00 Urine Creatinine 124.2 mg/dL (0.1-20.0) H 12/07/16 12:00 Ur Creatinine 24 Hour 0.7 (0.8-2.8) L 12/07/16 12:00 Blood Type O POSITIVE 12/02/16 20:25 Antibody Screen Negative 12/02/16 20:25 Crossmatch See Detail 12/02/16 20:25
--- NOTE | 2016-12-10 09:23 | Progress Note ---
Assessment and Plan 1. Acute tubular necrosis on chronic kidney disease dialysis requiring. Kidney function appears to have improved. Creatinine is stable in mid 2's last couple of days. 24-hour urine for creatinine clearance was 21 mls/min. Hold off on dialysis for now. 2. Hypotension resolved 3. Chronic systolic heart failure. Stable. Patient is on ARB 4. History of coronary artery disease status post percutaneous coronary intervention stable. 5. Anemia of chronic kidney disease with relatively iron deficiency. 6. Hypophosphatemia/hypomagnesemia. Improved with supplementation Recommendations: Continue to hold dialysis. Follow up Labs in 1 week and office visit thereafter. If remains stable, DC Permacath as Out Patient. If still in the hospital in the morning, follow-up labs and if kidney function remains stable, DC permacath. Follow-up blood pressure as Out Pt. Give erythropoietin Subjective Principal diagnosis: NATHALIA on CKD Interval history: Patient seen lying in bed. She has no complaints. She denies any pain, nausea , vomiting or shortness of breath. Objective - Exam Narrative Exam: [Elderly -[place] female lying in bed] in no acute distress HEENT [normocephalic atraumatic, pupils equal reactive to light, pink, clear oropharynx] Neck [supple, no thyromegaly no jugular venous distention, right internal jugular tunneled dialysis catheter] CVS [S1-S2 regular rate rhythm without murmur, rub or gallop] Chest [clear to auscultation] Abdomen [soft nondistended nontender no organomegaly no bruit bowel sounds present] Extremities [no edema no cyanosis or clubbing] Neuro [awake, alert oriented x3 no gross deficit] - Vital Signs Vital signs: Vital Signs - 12hr 12/09/16 12/09/16 12/10/16 22:02 22:04 01:00 Temperature Pulse Rate 77 77 Pulse Rate [ 77 Left Radial] Respiratory 16 Rate Blood Pressure 134/60 134/60 O2 Sat by Pulse 96 Oximetry 12/10/16 12/10/16 04:00 07:25 Temperature 98.9 F 98.5 F Pulse Rate 75 77 Pulse Rate [ Left Radial] Respiratory 18 18 Rate Blood Pressure 135/63 147/67 O2 Sat by Pulse 97 Oximetry - Lab 12/04/16 05:16 12/09/16 03:48 Most recent lab results Calcium 7.6 mg/dL (8.4-10.2) L 12/09/16 03:48 Phosphorus 3.00 mg/dL (2.5-4.5) 12/08/16 05:17 Magnesium 2.00 mg/dL (1.7-2.3) 12/08/16 05:17 Urine Creatinine 124.2 mg/dL (0.1-20.0) H 12/07/16 12:00
[2016-12-10] MEDS: NORVASC PO SCH (09:57)
[2016-12-10] MEDS: PROTONIX PO SCH (09:57)
[2016-12-10] MEDS: COREG PO SCH ×2 (09:57→23:19)
[2016-12-10] MEDS: BABY ASPIRIN PO SCH (09:57)
[2016-12-10] MEDS: PLAVIX PO SCH (09:58)
[2016-12-10] MEDS: DIOVAN PO SCH (09:58)
[2016-12-10] MEDS: NAMENDA XR PO SCH (09:58)
[2016-12-10] MEDS: OYSCO D 500 MG-200 UNIT PO SCH (09:58)
[2016-12-10] MEDS: IMDUR PO SCH (09:58)
--- NOTE | 2016-12-10 12:40 | Progress Note ---
Assessment and Plan Anemia s/p blood transfusion recent EGD/Flex reports mild non-erosive gastritis and hemorrhoids. Chronic renal disease Thrombocytopenia CAD s/p recent PCI of the mid LAD and mid circumflex using baremetal stents. on DAPT with plavix and aspirin Severe Cardiomyopathy LVEF 10-15% on echocardiogram 10/2016 Moderate to severe mitral regurgitation Prior CVA Hypertension Hypomagnesemia NSVT, pt remains asymptomatic Recommendations: Continue medical therapy for her cardiomyopathy and coronary artery disease. LifeVest on discharge. Due to the patient's advanced age, frailty, and poor mental status she may not be an optimal candidate in the long-term for defibrillator therapy either for primary or secondary prevention. Subjective Date of service: 12/10/16 Principal diagnosis: NATHALIA on CKD Interval history: Awaits placement. Objective Vital Signs Temp Pulse Pulse Resp BP Pulse Ox 12/10/16 07:25 98.5 F 77 18 147/67 97 12/10/16 04:00 98.9 F 75 18 135/63 12/10/16 01:00 77 16 96 12/09/16 22:04 77 134/60 12/09/16 22:02 77 134/60 12/09/16 21:14 98.9 F 77 16 134/60 96 12/09/16 16:49 99.7 F H 76 20 118/56 98 12/09/16 14:10 121/58 - Physical Examination General: No Apparent Distress HEENT: Positive: PERRL Neck: Positive: trachea midline Cardiac: Positive: Reg Rate and Rhythm - Labs and Meds Comprehensive Metabolic Panel 12/05/16 Range/Units 14:16 Albumin 2.2 L (3.8-4.8) g/dL
[2016-12-10] MEDS: SENOKOT S PO SCH (23:18)
[2016-12-10] MEDS: ULTRAM PO PRN (23:18)
[2016-12-11 04:48] LABS: BUN/Creatinine Ratio 10.5; Calcium 8.1 mg/dL (8.4-10.2); Magnesium 1.6 mg/dL (1.7-2.3); Potassium 4.1 mmol/L (3.6-5.0)
[2016-12-11] MEDS: HEPARIN SUB-Q SCH ×3 (06:23→22:43)
[2016-12-11] MEDS: APRESOLINE PO SCH ×3 (08:51→22:43)
--- NOTE | 2016-12-11 11:04 | Progress Note ---
Assessment and Plan Anemia s/p blood transfusion recent EGD/Flex reports mild non-erosive gastritis and hemorrhoids. Chronic renal disease Thrombocytopenia CAD s/p recent PCI of the mid LAD and mid circumflex using baremetal stents. on DAPT with plavix and aspirin Severe Cardiomyopathy LVEF 10-15% on echocardiogram 10/2016 Moderate to severe mitral regurgitation Prior CVA Hypertension Hypomagnesemia Recommendations: Replace low serum magnesium. Continue medical therapy for her cardiomyopathy and coronary artery disease. LifeVest on discharge. Due to the patient's advanced age, frailty, and poor mental status she may not be an optimal candidate in the long-term for defibrillator therapy either for primary or secondary prevention. Subjective Date of service: 12/11/16 Principal diagnosis: NATHALIA on CKD Interval history: Awaits placement. Objective Vital Signs Temp Pulse Pulse Resp BP Pulse Ox 12/11/16 07:00 98.3 F 78 18 124/59 96 12/11/16 06:00 98.3 F 76 18 138/63 12/11/16 02:00 99.2 F 82 18 140/65 12/10/16 23:20 88 132/62 12/10/16 23:19 88 132/62 12/10/16 22:00 99.6 F 88 88 20 132/62 97 12/10/16 15:25 99.3 F 83 18 139/73 96 12/10/16 12:35 99.2 F 78 20 141/65 - Physical Examination General: No Apparent Distress - Labs and Meds Comprehensive Metabolic Panel 12/11/16 Range/Units 03:51 Sodium 140 (137-145) mmol/L Potassium 4.1 (3.6-5.0) mmol/L Chloride 105.0 (98-107) mmol/L Carbon Dioxide 18 L (22-30) mmol/L BUN 21 H (7-17) mg/dL Creatinine 2.0 H (0.7-1.2) mg/dL Glucose 90 (65-100) mg/dL Calcium 8.1 L (8.4-10.2) mg/dL
[2016-12-11] MEDS: DIOVAN PO SCH (11:43)
[2016-12-11] MEDS: IMDUR PO SCH (11:43)
[2016-12-11] MEDS: NAMENDA XR PO SCH (11:43)
[2016-12-11] MEDS: PLAVIX PO SCH (11:44)
[2016-12-11] MEDS: BABY ASPIRIN PO SCH (11:44)
[2016-12-11] MEDS: PROTONIX PO SCH (11:44)
[2016-12-11] MEDS: OYSCO D 500 MG-200 UNIT PO SCH (11:44)
[2016-12-11] MEDS: COREG PO SCH ×2 (11:44→22:42)
[2016-12-11] MEDS: NORVASC PO SCH (11:44)
[2016-12-11] MEDS ORDERED: MAGNESIUM SULFATE 2GM/50ML 2 GM/50 ML BAG IV ONE (14:00)
[2016-12-11] MEDS: PROCRIT SUB-Q SCH (15:00)
--- NOTE | 2016-12-11 15:50 | Progress Note ---
Assessment and Plan Assessment and Plan Assessment and plan: NSVT. Continue Coreg. Patient will need life vest at discharge. Anemia. Patient is s/p PRBCs. Patient with recent EGD/Flex reports mild non- erosive gastritis and hemorrhoids. Hematology following. Follow-up iron tibc ferritin retic b12 and folate. Myeloma work up as well. Bone marrow aspiration and biopsy as outpatient. Acute on CKD on dialysis. Nephrology wants to get 24-hour urine for creatinine clearance. Coronary artery disease. Patient s/p recent PCI of the mid LAD and mid circumflex using baremetal stents. Continue DAPT (aspirin and Plavix) per cardiology recommendations. NSTEMI. As above. Patient still with elevated troponin. Severe cardiomyopathy. LVEF 10-15% or echocardiogram 10/2016. Chronic systolic heart failure. Continue medications per cardiology. Hypertension. BP stable. Continue antihypertensive medications. Hyperlipidemia. Dementia. Supportive care, resume meds. Hx CVA Full CODE STATUS DVT prophylaxis with heparin. Disposition. Patient was denied acceptance at [facility] due to LifeVest. Case management attempting to find new SNF placement Subjective Date of service: 12/11/16 Principal diagnosis: NATHALIA on CKD Interval history: Doing reasonably well Objective - Constitutional Vitals: Vital Signs - 12hr 12/11/16 12/11/16 12/11/16 06:00 07:00 11:00 Temperature 98.3 F 98.3 F 98.9 F Pulse Rate 76 78 79 Respiratory 18 18 18 Rate Blood Pressure 138/63 124/59 146/66 O2 Sat by Pulse 96 98 Oximetry 12/11/16 14:31 Temperature Pulse Rate 72 Respiratory Rate Blood Pressure 130/70 O2 Sat by Pulse Oximetry General appearance: Present: no acute distress, well-nourished - EENT Eyes: PERRL, EOM intact ENT: hearing intact, clear oral mucosa Ears: bilateral: normal - Neck Neck: supple, normal ROM - Respiratory Respiratory effort: normal Respiratory: bilateral: CTA - Breasts Breasts: normal - Cardiovascular Rhythm: regular Heart Sounds: Present: S1 & S2. Absent: gallop, rub Extremities: pulses intact, No edema, normal color, Full ROM - Gastrointestinal General gastrointestinal: Present: soft, non-tender, non-distended, normal bowel sounds - Genitourinary Female genitourinary: normal - Integumentary Integumentary: clear, warm, dry - Musculoskeletal Musculoskeletal: 1, strength equal bilaterally - Neurologic Neurologic: moves all extremities - Psychiatric Psychiatric: memory intact, appropriate mood/affect, intact judgment & insight - Labs CBC & Chem 7: 12/04/16 05:16 12/11/16 03:51 Labs: Abnormal lab results 12/11/16 Range/Units 03:51 Carbon Dioxide 18 L (22-30) mmol/L BUN 21 H (7-17) mg/dL Creatinine 2.0 H (0.7-1.2) mg/dL Calcium 8.1 L (8.4-10.2) mg/dL Magnesium 1.60 L (1.7-2.3) mg/dL
[2016-12-11] MEDS: SENOKOT S PO SCH (22:42)
[2016-12-12] MEDS: HEPARIN SUB-Q SCH ×3 (05:52→21:11)
--- NOTE | 2016-12-12 08:34 | Progress Note ---
Assessment and Plan Anemia s/p blood transfusion recent EGD/Flex reports mild non-erosive gastritis and hemorrhoids. Chronic renal disease Thrombocytopenia CAD s/p recent PCI of the mid LAD and mid circumflex using baremetal stents. on DAPT with plavix and aspirin Severe Cardiomyopathy LVEF 10-15% on echocardiogram 10/2016 Moderate to severe mitral regurgitation Prior CVA Hypertension Hypomagnesemia Recommendations: Continue medical therapy for her cardiomyopathy and coronary artery disease. LifeVest on discharge. Due to the patient's advanced age, frailty, and poor mental status she may not be an optimal candidate in the long-term for defibrillator therapy either for primary or secondary prevention. Subjective Date of service: 12/12/16 Principal diagnosis: NATHALIA on CKD Interval history: No interval changes Patient resting comfortably in bed Objective Vital Signs Temp Pulse Resp BP Pulse Ox 12/12/16 04:00 98.8 F 77 20 129/58 94 12/12/16 00:00 98.7 F 72 20 95/50 94 12/11/16 22:43 78 110/54 12/11/16 22:42 78 110/54 12/11/16 20:00 97.2 F L 72 20 114/54 96 12/11/16 15:00 72 18 130/70 12/11/16 14:31 72 130/70 12/11/16 11:00 98.9 F 79 18 146/66 98 - Physical Examination General: No Apparent Distress HEENT: Positive: PERRL Neck: Positive: trachea midline Cardiac: Positive: Reg Rate and Rhythm Lungs: Positive: Normal Exam Neuro: Positive: Grossly Intact Abdomen: Positive: Soft, Active Bowel Sounds Extremities: Absent: edema
[2016-12-12] MEDS: IMDUR PO SCH (09:06)
[2016-12-12] MEDS: NAMENDA XR PO SCH (09:06)
[2016-12-12] MEDS: PLAVIX PO SCH (09:06)
[2016-12-12] MEDS: DIOVAN PO SCH (09:06)
[2016-12-12] MEDS: OYSCO D 500 MG-200 UNIT PO SCH (09:07)
[2016-12-12] MEDS: COREG PO SCH ×2 (09:07→21:10)
[2016-12-12] MEDS: PROTONIX PO SCH (09:07)
[2016-12-12] MEDS: APRESOLINE PO SCH ×3 (09:07→21:10)
[2016-12-12] MEDS: NORVASC PO SCH (09:07)
[2016-12-12] MEDS: BABY ASPIRIN PO SCH (09:07)
--- NOTE | 2016-12-12 10:02 | Progress Note ---
Assessment and Plan Assessment and plan: NSVT. Continue Coreg. Patient will need life vest at discharge. Anemia. Patient is s/p PRBCs. Patient with recent EGD/Flex reports mild non- erosive gastritis and hemorrhoids. Hematology following. Follow-up iron tibc ferritin retic b12 and folate. Myeloma work up as well. Bone marrow aspiration and biopsy as outpatient. Acute on CKD on dialysis. Nephrology wants to get 24-hour urine for creatinine clearance. Coronary artery disease. Patient s/p recent PCI of the mid LAD and mid circumflex using baremetal stents. Continue DAPT (aspirin and Plavix) per cardiology recommendations. NSTEMI. As above. Patient still with elevated troponin. Severe cardiomyopathy. LVEF 10-15% or echocardiogram 10/2016. Chronic systolic heart failure. Continue medications per cardiology. Hypertension. BP stable. Continue antihypertensive medications. Hyperlipidemia. Dementia. Supportive care, resume meds. Hx CVA Full CODE STATUS DVT prophylaxis with heparin. Disposition. Patient was denied acceptance at [facility] due to LifeVest. Case management attempting to find new SNF placement - Patient Problems (1) Chronic systolic (congestive) heart failure Current Visit: Yes Status: Acute (2) Anemia Current Visit: Yes Status: Acute Qualifiers: Anemia type: unspecified type Iron deficiency anemia type: I Vitamin B12 deficiency anemia type: V Folate deficiency anemia type: F Bone marrow failure anemia type: B Hemolytic anemia type: H Other causes of anemia: O Chronic kidney disease stage: C Qualified Code(s): D64.9 - Anemia, unspecified (3) Acute kidney injury superimposed on CKD Current Visit: No Status: Acute (4) Anemia Current Visit: No Status: Acute Qualifiers: Anemia type: A Iron deficiency anemia type: I Vitamin B12 deficiency anemia type: V Folate deficiency anemia type: F Bone marrow failure anemia type: B Hemolytic anemia type: H Other causes of anemia: O Chronic kidney disease stage: C (5) Thrombocytopenia Current Visit: No Status: Acute (6) HTN (hypertension) Current Visit: No Status: Chronic Qualifiers: Hypertension type: essential hypertension Qualified Code(s): I10 - Essential (primary) hypertension History Interval history: No new issues overnight. Hospitalist Physical - Constitutional Vitals: Temp Pulse Resp BP Pulse Ox 98.3 F 333 H 20 144/65 99 12/12/16 08:00 12/12/16 09:06 12/12/16 08:00 08/19/17 08:00 12/12/16 08:00 General appearance: Present: no acute distress, well-nourished - EENT Eyes: Present: PERRL, EOM intact ENT: hearing intact, clear oral mucosa, dentition normal - Neck Neck: Present: supple, normal ROM - Respiratory Respiratory effort: normal Respiratory: bilateral: CTA - Cardiovascular Rhythm: regular Heart Sounds: Present: S1 & S2. Absent: gallop, rub - Extremities Extremities: no ischemia, No edema, Full ROM - Abdominal General gastrointestinal: soft, non-tender, non-distended, normal bowel sounds - Integumentary Integumentary: Present: clear, warm, dry - Neurologic Neurologic: CNII-XII intact, moves all extremities Results - Labs CBC & Chem 7: 12/04/16 05:16 12/11/16 03:51 Labs: Laboratory Last Values WBC 2.8 K/mm3 (4.5-11.0) L 12/04/16 05:16 RBC 2.40 M/mm3 (3.65-5.03) L 12/04/16 05:16 Hgb 7.5 gm/dl (10.1-14.3) L 12/04/16 05:16 Hct 23.6 % (30.3-42.9) L 12/04/16 05:16 MCV 99 fl (79-97) H 12/04/16 05:16 MCH 31 pg (28-32) 12/04/16 05:16 MCHC 32 % (30-34) 12/04/16 05:16 RDW 15.9 % (13.2-15.2) H 12/04/16 05:16 Plt Count 74 K/mm3 (140-440) L 12/04/16 05:16 Lymph % (Auto) 44.6 % (13.4-35.0) H 12/04/16 05:16 Bartholomew % (Auto) 10.7 % (0.0-7.3) H 12/04/16 05:16 Eos % (Auto) 5.4 % (0.0-4.3) H 12/04/16 05:16 Baso % (Auto) 0.4 % (0.0-1.8) 12/04/16 05:16 Lymph # 1.2 K/mm3 (1.2-5.4) 12/04/16 05:16 Bartholomew # 0.3 K/mm3 (0.0-0.8) 12/04/16 05:16 Eos # 0.2 K/mm3 (0.0-0.4) 12/04/16 05:16 Baso # 0.0 K/mm3 (0.0-0.1) 12/04/16 05:16 Seg Neutrophils % 38.9 % (40.0-70.0) L 12/04/16 05:16 Seg Neutrophils # 1.1 K/mm3 (1.8-7.7) L 12/04/16 05:16 Percent Retic 2.81 % (0.78-2.58) H 12/05/16 14:16 PT 13.7 Sec. (12.2-14.9) 12/02/16 20:28 INR 1.00 (0.87-1.13) 12/02/16 20:28 APTT 26.3 Sec. (24.2-36.6) 12/02/16 20:28 Sodium 140 mmol/L (137-145) 12/11/16 03:51 Potassium 4.1 mmol/L (3.6-5.0) 12/11/16 03:51 Chloride 105.0 mmol/L (98-107) 12/11/16 03:51 Carbon Dioxide 18 mmol/L (22-30) L 12/11/16 03:51 Anion Gap 21 mmol/L 12/11/16 03:51 BUN 21 mg/dL (7-17) H 12/11/16 03:51 Creatinine 2.0 mg/dL (0.7-1.2) H 12/11/16 03:51 Estimated GFR 30 ml/min 12/11/16 03:51 BUN/Creatinine Ratio 10.50 % 12/11/16 03:51 Glucose 90 mg/dL (65-100) 12/11/16 03:51 POC Glucose 84 (70-105) 12/09/16 06:41 Calcium 8.1 mg/dL (8.4-10.2) L 12/11/16 03:51 Phosphorus 4.00 mg/dL (2.5-4.5) 12/11/16 03:51 Magnesium 1.60 mg/dL (1.7-2.3) L 12/11/16 03:51 Iron 40 ug/dL (37-170) 12/05/16 14:16 TIBC 208.60 mcg/dL (250-450) L 12/05/16 14:16 % Saturation 19.18 % 12/05/16 14:16 Transferrin 149 mg/dl (192-382) L 12/05/16 14:16 Ferritin 247.9 ng/mL (13.0-400.0) 12/05/16 14:16 Total Bilirubin 0.30 mg/dL (0.1-1.2) 12/02/16 20:28 AST 24 units/L (5-40) 12/02/16 20:28 ALT 22 units/L (7-56) 12/02/16 20:28 Alkaline Phosphatase 89 units/L (35-129) 12/02/16 20:28 Lactate Dehydrogenase 343 units/L (91-180) H 12/05/16 14:16 Total Creatine Kinase 160 units/L (30-135) H 12/07/16 06:54 CK-MB (CK-2) 3.5 ng/mL (0.0-4.0) 12/07/16 06:54 CK-MB (CK-2) Rel Index 2.1 (0-4) 12/07/16 06:54 Troponin T 0.210 ng/mL (0.00-0.029) H* D 12/07/16 06:54 NT-Pro-B Natriuret Pep 31164 pg/mL (0-900) H 12/02/16 20:44 Serum Total Protein 4.6 g/dL (6.1-8.1) L 12/05/16 14:16 Total Protein 4.6 g/dL (6.3-8.2) L 12/02/16 20:28 Albumin 2.2 g/dL (3.8-4.8) L 12/05/16 14:16 Albumin/Globulin Ratio 1.2 % 12/02/16 20:28 [id number]-8-Gwznawfum 0.4 g/dL (0.2-0.3) H 12/05/16 14:16 Yimiy-1-Lcrltvnnd 0.8 g/dL (0.5-0.9) 12/05/16 14:16 Beta Globulins 0.2 g/dL (0.2-0.5) 12/05/16 14:16 Gamma Globulins 0.7 g/dL (0.8-1.7) L 12/05/16 14:16 Abnorm Protein Band 1 see below 12/05/16 14:16 PEP Interpretation Consistent with H 12/05/16 14:16 Triglycerides 127 mg/dL (2-149) 12/02/16 20:44 Cholesterol 87 mg/dL (50-199) 12/02/16 20:44 LDL Cholesterol Direct 22 mg/dL (50-130) L 12/02/16 20:44 HDL Cholesterol 40 mg/dL (40-59) 12/02/16 20:44 Cholesterol/HDL Ratio 2.17 % 12/02/16 20:44 Vitamin B12 721.4 pg/mL (211-911) 12/05/16 14:16 Folate 11.41 ng/mL (7.3-26.0) 12/05/16 14:16 Urine Total Volume 550 12/07/16 12:00 Urine Creatinine 124.2 mg/dL (0.1-20.0) H 12/07/16 12:00 Ur Creatinine 24 Hour 0.7 (0.8-2.8) L 12/07/16 12:00 Blood Type O POSITIVE 12/02/16 20:25 Antibody Screen Negative 12/02/16 20:25 Crossmatch See Detail 12/02/16 20:25
--- NOTE | 2016-12-12 15:02 | Progress Note ---
Assessment and Plan 1. Acute tubular necrosis on chronic kidney disease dialysis requiring. Kidney function appears to have improved. Creatinine is stable in mid 2's last couple of days. 24-hour urine for creatinine clearance was 21 mls/min. Still Holding off on dialysis for now. 2. Hypotension resolved 3. Chronic systolic heart failure. Stable. Patient is on ARB 4. History of coronary artery disease status post percutaneous coronary intervention stable. 5. Anemia of chronic kidney disease with relatively iron deficiency. 6. Hypophosphatemia/hypomagnesemia. Improved with supplementation Recommendations: Continue to hold dialysis. Follow up Labs in 1 week and office visit thereafter. If remains stable, DC Permacath. If still in the hospital in the morning, follow-up labs and if kidney function remains stable, DC permacath on wednesday. Follow-up blood pressure. Give erythropoietin Subjective Date of service: 12/12/16 Principal diagnosis: NATHALIA on CKD Interval history: Patient seen lying in bed. She has no complaints. She denies any pain, nausea , vomiting or shortness of breath. Objective - Exam Narrative Exam: [Elderly -[place] female lying in bed] in no acute distress HEENT [normocephalic atraumatic, pupils equal reactive to light, pink, clear oropharynx] Neck [supple, no thyromegaly no jugular venous distention, right internal jugular tunneled dialysis catheter] CVS [S1-S2 regular rate rhythm without murmur, rub or gallop] Chest [clear to auscultation] Abdomen [soft nondistended nontender no organomegaly no bruit bowel sounds present] Extremities [no edema no cyanosis or clubbing] Neuro [awake, alert oriented x3 no gross deficit] - Vital Signs Vital signs: Vital Signs - 12hr 12/12/16 12/12/16 12/12/16 04:00 08:00 09:06 Temperature 98.8 F 98.3 F Pulse Rate 77 79 333 H Respiratory 20 20 Rate Blood Pressure 129/58 144/65 O2 Sat by Pulse 94 99 Oximetry - Lab 12/04/16 05:16 12/11/16 03:51 Most recent lab results Calcium 8.1 mg/dL (8.4-10.2) L 12/11/16 03:51 Phosphorus 4.00 mg/dL (2.5-4.5) 12/11/16 03:51 Magnesium 1.60 mg/dL (1.7-2.3) L 12/11/16 03:51 Urine Creatinine 124.2 mg/dL (0.1-20.0) H 12/07/16 12:00
[2016-12-12] MEDS: SENOKOT S PO SCH (21:10)
[2016-12-13 06:04] LABS: Hematocrit 25.4 % (30.3-42.9); Hemoglobin 8.3 gm/dl (10.1-14.3); Mean Corpuscular HGB Conc 33 % (30-34); Mean Corpuscular Hemoglobin 32 pg (28-32); Mean Corpuscular Volume 99 fl (79-97); Platelet Count 174 K/mm3 (140-440); Red Blood Count 2.56 M/mm3 (3.65-5.03); Red Cell Distribution Width 17.3 % (13.2-15.2); White Blood Count 4.2 K/mm3 (4.5-11.0)
[2016-12-13 06:24] LABS: BUN/Creatinine Ratio 9.13; Calcium 8.1 mg/dL (8.4-10.2); Chloride 104.9 mmol/L (98-107); Potassium 3.9 mmol/L (3.6-5.0)
[2016-12-13] MEDS: HEPARIN SUB-Q SCH ×3 (07:38→21:44)
[2016-12-13] MEDS: APRESOLINE PO SCH ×3 (08:10→21:43)
--- NOTE | 2016-12-13 08:18 | Progress Note ---
Assessment and Plan Anemia s/p blood transfusion recent EGD/Flex reports mild non-erosive gastritis and hemorrhoids. Chronic renal disease Thrombocytopenia CAD s/p recent PCI of the mid LAD and mid circumflex using baremetal stents. on DAPT with plavix and aspirin Severe Cardiomyopathy LVEF 10-15% on echocardiogram 10/2016 Moderate to severe mitral regurgitation Prior CVA Hypertension Hypomagnesemia Recommendations: Continue medical therapy for her cardiomyopathy and coronary artery disease. Start magnesium oxide pills LifeVest on discharge. Due to the patient's advanced age, frailty, and poor mental status she may not be an optimal candidate for long-term for defibrillator therapy either for primary or secondary prevention. Subjective Date of service: 12/13/16 Principal diagnosis: NATHALIA on CKD Interval history: No interval changes Objective Vital Signs Temp Pulse Resp BP Pulse Ox 12/13/16 00:00 98.7 F 77 18 128/56 97 12/12/16 22:00 20 12/12/16 21:10 80 134/63 12/12/16 20:00 99.1 F 77 18 123/55 96 12/12/16 16:00 98.5 F 74 20 122/60 99 12/12/16 09:06 333 H - Physical Examination General: No Apparent Distress HEENT: Positive: PERRL Neck: Positive: trachea midline Cardiac: Positive: Reg Rate and Rhythm Lungs: Positive: Normal Exam Neuro: Positive: Grossly Intact Abdomen: Positive: Soft, Active Bowel Sounds Extremities: Absent: edema - Labs and Meds CBC 12/13/16 Range/Units 05:15 WBC 4.2 L (4.5-11.0) K/mm3 RBC 2.56 L (3.65-5.03) M/mm3 Hgb 8.3 L (10.1-14.3) gm/dl Hct 25.4 L (30.3-42.9) % Plt Count 174 (140-440) K/mm3 Comprehensive Metabolic Panel 12/13/16 Range/Units 05:15 Sodium 140 (137-145) mmol/L Potassium 3.9 (3.6-5.0) mmol/L Chloride 104.9 (98-107) mmol/L Carbon Dioxide 20 L (22-30) mmol/L BUN 21 H (7-17) mg/dL Creatinine 2.3 H (0.7-1.2) mg/dL Glucose 94 (65-100) mg/dL Calcium 8.1 L (8.4-10.2) mg/dL
[2016-12-13] MEDS: PLAVIX PO SCH (09:17)
[2016-12-13] MEDS: IMDUR PO SCH (09:17)
[2016-12-13] MEDS: NAMENDA XR PO SCH (09:17)
[2016-12-13] MEDS: DIOVAN PO SCH (09:17)
[2016-12-13] MEDS: BABY ASPIRIN PO SCH (09:18)
[2016-12-13] MEDS: MAG-OX PO SCH (09:18)
[2016-12-13] MEDS: OYSCO D 500 MG-200 UNIT PO SCH (09:18)
[2016-12-13] MEDS: COREG PO SCH (09:18)
[2016-12-13] MEDS: NORVASC PO SCH (09:18)
[2016-12-13] MEDS: PROTONIX PO SCH (09:19)
--- NOTE | 2016-12-13 10:05 | Progress Note ---
Assessment and Plan Assessment and plan: NSVT. Continue Coreg. Patient will need life vest at discharge. Due to the patient's advanced age, frailty, and poor mental status she may not be an optimal candidate for long-term for defibrillator therapy either for primary or secondary prevention. Anemia. Patient is s/p PRBCs. Patient with recent EGD/Flex reports mild non- erosive gastritis and hemorrhoids. Hematology following. Follow-up iron tibc ferritin retic b12 and folate. Myeloma work up as well. Bone marrow aspiration and biopsy as outpatient. Acute on CKD on dialysis. Nephrology wants to get 24-hour urine for creatinine clearance. Coronary artery disease. Patient s/p recent PCI of the mid LAD and mid circumflex using baremetal stents. Continue DAPT (aspirin and Plavix) per cardiology recommendations. NSTEMI. As above. Patient still with elevated troponin. Severe cardiomyopathy. LVEF 10-15% or echocardiogram 10/2016. Chronic systolic heart failure. Continue medications per cardiology. Hypertension. BP stable. Continue antihypertensive medications. Hyperlipidemia. Dementia. Supportive care, resume meds. Hx CVA Full CODE STATUS DVT prophylaxis with heparin. Disposition. Patient was denied acceptance at [facility] due to LifeVest. Case management attempting to find new SNF placement - Patient Problems (1) Chronic systolic (congestive) heart failure Current Visit: Yes Status: Acute (2) Anemia Current Visit: Yes Status: Acute Qualifiers: Anemia type: unspecified type Iron deficiency anemia type: I Vitamin B12 deficiency anemia type: V Folate deficiency anemia type: F Bone marrow failure anemia type: B Hemolytic anemia type: H Other causes of anemia: O Chronic kidney disease stage: C Qualified Code(s): D64.9 - Anemia, unspecified (3) Acute kidney injury superimposed on CKD Current Visit: No Status: Acute (4) Anemia Current Visit: No Status: Acute Qualifiers: Anemia type: A Iron deficiency anemia type: I Vitamin B12 deficiency anemia type: V Folate deficiency anemia type: F Bone marrow failure anemia type: B Hemolytic anemia type: H Other causes of anemia: O Chronic kidney disease stage: C (5) Thrombocytopenia Current Visit: No Status: Acute (6) HTN (hypertension) Current Visit: No Status: Chronic Qualifiers: Hypertension type: essential hypertension Qualified Code(s): I10 - Essential (primary) hypertension History Interval history: No new issues overnight. Hospitalist Physical - Constitutional Vitals: Temp Pulse Resp BP Pulse Ox 98.6 F 83 20 141/65 98 12/13/16 08:05 12/13/16 08:05 12/13/16 08:05 12/13/16 08:05 12/13/16 08:05 General appearance: Present: no acute distress, well-nourished - EENT Eyes: Present: PERRL, EOM intact ENT: hearing intact, clear oral mucosa, dentition normal - Neck Neck: Present: supple, normal ROM - Respiratory Respiratory effort: normal Respiratory: bilateral: CTA - Cardiovascular Rhythm: regular Heart Sounds: Present: S1 & S2. Absent: gallop, rub - Extremities Extremities: no ischemia, No edema, Full ROM - Abdominal General gastrointestinal: soft, non-tender, non-distended, normal bowel sounds - Integumentary Integumentary: Present: clear, warm, dry - Neurologic Neurologic: CNII-XII intact, moves all extremities Results - Labs CBC & Chem 7: 12/13/16 05:15 12/13/16 05:15 Labs: Laboratory Last Values WBC 4.2 K/mm3 (4.5-11.0) L 12/13/16 05:15 RBC 2.56 M/mm3 (3.65-5.03) L 12/13/16 05:15 Hgb 8.3 gm/dl (10.1-14.3) L 12/13/16 05:15 Hct 25.4 % (30.3-42.9) L 12/13/16 05:15 MCV 99 fl (79-97) H 12/13/16 05:15 MCH 32 pg (28-32) 12/13/16 05:15 MCHC 33 % (30-34) 12/13/16 05:15 RDW 17.3 % (13.2-15.2) H 12/13/16 05:15 Plt Count 174 K/mm3 (140-440) 12/13/16 05:15 Lymph % (Auto) 44.6 % (13.4-35.0) H 12/04/16 05:16 Craig % (Auto) 10.7 % (0.0-7.3) H 12/04/16 05:16 Eos % (Auto) 5.4 % (0.0-4.3) H 12/04/16 05:16 Baso % (Auto) 0.4 % (0.0-1.8) 12/04/16 05:16 Lymph # 1.2 K/mm3 (1.2-5.4) 12/04/16 05:16 Craig # 0.3 K/mm3 (0.0-0.8) 12/04/16 05:16 Eos # 0.2 K/mm3 (0.0-0.4) 12/04/16 05:16 Baso # 0.0 K/mm3 (0.0-0.1) 12/04/16 05:16 Seg Neutrophils % 38.9 % (40.0-70.0) L 12/04/16 05:16 Seg Neutrophils # 1.1 K/mm3 (1.8-7.7) L 12/04/16 05:16 Percent Retic 2.81 % (0.78-2.58) H 12/05/16 14:16 PT 13.7 Sec. (12.2-14.9) 12/02/16 20:28 INR 1.00 (0.87-1.13) 12/02/16 20:28 APTT 26.3 Sec. (24.2-36.6) 12/02/16 20:28 Sodium 140 mmol/L (137-145) 12/13/16 05:15 Potassium 3.9 mmol/L (3.6-5.0) 12/13/16 05:15 Chloride 104.9 mmol/L (98-107) 12/13/16 05:15 Carbon Dioxide 20 mmol/L (22-30) L 12/13/16 05:15 Anion Gap 19 mmol/L 12/13/16 05:15 BUN 21 mg/dL (7-17) H 12/13/16 05:15 Creatinine 2.3 mg/dL (0.7-1.2) H 12/13/16 05:15 Estimated GFR 25 ml/min 12/13/16 05:15 BUN/Creatinine Ratio 9.13 % 12/13/16 05:15 Glucose 94 mg/dL (65-100) 12/13/16 05:15 POC Glucose 84 (70-105) 12/09/16 06:41 Calcium 8.1 mg/dL (8.4-10.2) L 12/13/16 05:15 Phosphorus 4.00 mg/dL (2.5-4.5) 12/11/16 03:51 Magnesium 1.60 mg/dL (1.7-2.3) L 12/11/16 03:51 Iron 40 ug/dL (37-170) 12/05/16 14:16 TIBC 208.60 mcg/dL (250-450) L 12/05/16 14:16 % Saturation 19.18 % 12/05/16 14:16 Transferrin 149 mg/dl (192-382) L 12/05/16 14:16 Ferritin 247.9 ng/mL (13.0-400.0) 12/05/16 14:16 Total Bilirubin 0.30 mg/dL (0.1-1.2) 12/02/16 20:28 AST 24 units/L (5-40) 12/02/16 20:28 ALT 22 units/L (7-56) 12/02/16 20:28 Alkaline Phosphatase 89 units/L (35-129) 12/02/16 20:28 Lactate Dehydrogenase 343 units/L (91-180) H 12/05/16 14:16 Total Creatine Kinase 160 units/L (30-135) H 12/07/16 06:54 CK-MB (CK-2) 3.5 ng/mL (0.0-4.0) 12/07/16 06:54 CK-MB (CK-2) Rel Index 2.1 (0-4) 12/07/16 06:54 Troponin T 0.210 ng/mL (0.00-0.029) H* D 12/07/16 06:54 NT-Pro-B Natriuret Pep 56317 pg/mL (0-900) H 12/02/16 20:44 Serum Total Protein 4.6 g/dL (6.1-8.1) L 12/05/16 14:16 Total Protein 4.6 g/dL (6.3-8.2) L 12/02/16 20:28 Albumin 2.2 g/dL (3.8-4.8) L 12/05/16 14:16 Albumin/Globulin Ratio 1.2 % 12/02/16 20:28 Gpbkv-0-Iyscgzsme 0.4 g/dL (0.2-0.3) H 12/05/16 14:16 Ebxbs-3-Uugeibkxj 0.8 g/dL (0.5-0.9) 12/05/16 14:16 Beta Globulins 0.2 g/dL (0.2-0.5) 12/05/16 14:16 Gamma Globulins 0.7 g/dL (0.8-1.7) L 12/05/16 14:16 Abnorm Protein Band 1 see below 12/05/16 14:16 PEP Interpretation Consistent with H 12/05/16 14:16 Triglycerides 127 mg/dL (2-149) 12/02/16 20:44 Cholesterol 87 mg/dL (50-199) 12/02/16 20:44 LDL Cholesterol Direct 22 mg/dL (50-130) L 12/02/16 20:44 HDL Cholesterol 40 mg/dL (40-59) 12/02/16 20:44 Cholesterol/HDL Ratio 2.17 % 12/02/16 20:44 Vitamin B12 721.4 pg/mL (211-911) 12/05/16 14:16 Folate 11.41 ng/mL (7.3-26.0) 12/05/16 14:16 Urine Total Volume 550 12/07/16 12:00 Urine Creatinine 124.2 mg/dL (0.1-20.0) H 12/07/16 12:00 Ur Creatinine 24 Hour 0.7 (0.8-2.8) L 12/07/16 12:00 Blood Type O POSITIVE 12/02/16 20:25 Antibody Screen Negative 12/02/16 20:25 Crossmatch See Detail 12/02/16 20:25
--- NOTE | 2016-12-13 15:42 | Progress Note ---
Assessment and Plan 1. Acute tubular necrosis on chronic kidney disease dialysis requiring. Kidney function appears to have improved. Creatinine is stable in mid 2's last couple of days. 24-hour urine for creatinine clearance was 21 mls/min. Still Holding off on dialysis . 2. Hypotension resolved 3. Chronic systolic heart failure. Stable. Patient is on ARB 4. History of coronary artery disease status post percutaneous coronary intervention stable. 5. Anemia of chronic kidney disease with relatively iron deficiency. 6. Hypophosphatemia/hypomagnesemia. Improved with supplementation Recommendations: OSBALDO Permacath in am. Follow-up blood pressure. Give erythropoietin Subjective Date of service: 12/13/16 Principal diagnosis: NATHALIA on CKD Interval history: Patient seen lying in bed. She has no complaints. She denies any pain, nausea , vomiting or shortness of breath. Objective - Exam Narrative Exam: [Elderly -[place] female lying in bed] in no acute distress HEENT [normocephalic atraumatic, pupils equal reactive to light, pink, clear oropharynx] Neck [supple, no thyromegaly no jugular venous distention, right internal jugular tunneled dialysis catheter] CVS [S1-S2 regular rate rhythm without murmur, rub or gallop] Chest [clear to auscultation] Abdomen [soft nondistended nontender no organomegaly no bruit bowel sounds present] Extremities [no edema no cyanosis or clubbing] Neuro [awake, alert oriented x3 no gross deficit] - Vital Signs Vital signs: Vital Signs - 12hr 12/13/16 12/13/16 12/13/16 08:05 12:45 13:44 Temperature 98.6 F 99.0 F Pulse Rate 83 83 83 Respiratory 20 20 Rate Blood Pressure 141/65 123/58 123/58 O2 Sat by Pulse 98 96 Oximetry - Lab 12/13/16 05:15 12/13/16 05:15 Most recent lab results Calcium 8.1 mg/dL (8.4-10.2) L 12/13/16 05:15 Phosphorus 4.00 mg/dL (2.5-4.5) 12/11/16 03:51 Magnesium 1.60 mg/dL (1.7-2.3) L 12/11/16 03:51 Urine Creatinine 124.2 mg/dL (0.1-20.0) H 12/07/16 12:00
[2016-12-13] MEDS: SENOKOT S PO SCH (21:43)
[2016-12-14] MEDS: COREG PO SCH ×2 (01:33→10:12)
[2016-12-14] MEDS: HEPARIN SUB-Q SCH ×2 (05:43→13:45)
[2016-12-14] MEDS: APRESOLINE PO SCH ×2 (08:00→13:45)
[2016-12-14] MEDS: IMDUR PO SCH (10:11)
[2016-12-14] MEDS: DIOVAN PO SCH (10:11)
[2016-12-14] MEDS: MAG-OX PO SCH (10:12)
[2016-12-14] MEDS: NAMENDA XR PO SCH (10:12)
[2016-12-14] MEDS: PROTONIX PO SCH (10:12)
[2016-12-14] MEDS: NORVASC PO SCH (10:13)
[2016-12-14] MEDS: BABY ASPIRIN PO SCH (10:13)
[2016-12-14] MEDS: PLAVIX PO SCH (10:13)
[2016-12-14] MEDS: OYSCO D 500 MG-200 UNIT PO SCH (10:14)
--- NOTE | 2016-12-14 10:51 | Progress Note ---
Assessment and Plan Anemia s/p blood transfusion recent EGD/Flex reports mild non-erosive gastritis and hemorrhoids. Chronic renal disease Thrombocytopenia CAD s/p recent PCI of the mid LAD and mid circumflex using baremetal stents. on DAPT with plavix and aspirin Severe Cardiomyopathy LVEF 10-15% on echocardiogram 10/2016 Lifevest placed Moderate to severe mitral regurgitation Prior CVA Hypertension Hypomagnesemia Recommendations: Continue medical therapy for her cardiomyopathy and coronary artery disease. LifeVest in place. Due to the patient's advanced age, frailty, and poor mental status she may not be an optimal candidate in the long-term for defibrillator therapy either for primary or secondary prevention. Subjective Date of service: 12/14/16 Principal diagnosis: NATHALIA on CKD Interval history: Awaits placement. Lifevest in place. Objective Vital Signs Temp Pulse Resp BP Pulse Ox 12/14/16 10:11 72 140/68 12/14/16 08:15 98.8 F 70 20 138/61 95 12/14/16 08:00 72 130/63 12/14/16 04:00 98.3 F 75 18 133/63 95 12/14/16 01:33 83 128/60 12/13/16 23:23 99 F 84 16 135/64 12/13/16 21:43 82 131/63 12/13/16 16:16 99.6 F 78 20 123/60 95 12/13/16 13:44 83 123/58 12/13/16 12:45 99.0 F 83 20 123/58 96 - Physical Examination General: No Apparent Distress HEENT: Positive: PERRL Neck: Positive: trachea midline Cardiac: Positive: Reg Rate and Rhythm
--- NOTE | 2016-12-14 12:42 | Progress Note ---
Assessment and Plan 1. Acute tubular necrosis on chronic kidney disease dialysis requiring. Kidney function appears to have improved. Creatinine is stable in mid 2's last couple of days. 24-hour urine for creatinine clearance was 21 mls/min. Still Holding off on dialysis . 2. Hypotension resolved 3. Chronic systolic heart failure. Stable. Patient is on ARB 4. History of coronary artery disease status post percutaneous coronary intervention stable. 5. Anemia of chronic kidney disease with relatively iron deficiency. 6. Hypophosphatemia/hypomagnesemia. Improved with supplementation Recommendations: vascular surgery consult for removal of Permacath Follow-up blood pressure. cont erythropoietin stable for discharge s/p permcath removal Subjective Date of service: 12/14/16 Principal diagnosis: NATHALIA on CKD Interval history: pt awake, alert, in NAD Objective - Vital Signs Vital signs: Vital Signs - 12hr 12/14/16 12/14/16 12/14/16 01:33 04:00 08:00 Temperature 98.3 F Pulse Rate 83 75 72 Respiratory 18 Rate Blood Pressure 128/60 133/63 130/63 O2 Sat by Pulse 95 Oximetry 12/14/16 12/14/16 12/14/16 08:15 10:11 12:07 Temperature 98.8 F 98.8 F Pulse Rate 70 72 80 Respiratory 20 20 Rate Blood Pressure 138/61 140/68 127/62 O2 Sat by Pulse 95 Oximetry - General Appearance General appearance: well-developed, well-nourished, appears stated age EENT: ATNC, PERRL, mucous membranes moist Neck: no JVD Respiratory: Present: Clear to Ascultation Cardiology: regular, S1S2 Gastrointestinal: normal, normoactive bowel sounds Integumentary: no rash, other (no edema ) Neurologic: no focal deficit, alert and oriented x3, strength 5/5, CN 3-12 intact Psychiatric: mood/affect appropriate, cooperative - Lab 12/13/16 05:15 12/13/16 05:15 Most recent lab results Calcium 8.1 mg/dL (8.4-10.2) L 12/13/16 05:15 Phosphorus 4.00 mg/dL (2.5-4.5) 12/11/16 03:51 Magnesium 1.60 mg/dL (1.7-2.3) L 12/11/16 03:51 Urine Creatinine 124.2 mg/dL (0.1-20.0) H 12/07/16 12:00
[2016-12-14] MEDS ORDERED: XYLOCAINE 2% INFILTRATI ONE (14:55)
--- NOTE | 2016-12-14 15:30 | Operative Report ---
Operative Report Operative Report: EXAM: REMOVAL OF TUNNELED HEMODIALYSIS CATHETER CLINICAL INDICATION: DIALYSIS CATHETER NO LONGER NEEDED DATE: 12/14/2016 PROCEDURE: Following an explanation of the risks, benefits and alternatives; informed consent was obtained. Procedure was performed at bedside in the patient's room. Patient's right chest wall and indwelling tunneled hemodialysis catheter were sterilely prepped and draped. 1% lidocaine was used for anesthesia at the catheter exit site and along the tunnel tract. Using a combination of sharp and blunt dissection, the catheter cuff was removed intact. The catheter was then withdrawn intact and hemostasis achieved using manual compression. A sterile dressing was then applied. The patient tolerated the procedure well. There were no immediate post procedure complications. IMPRESSION: 1) Removal of tunneled hemodialysis catheter
[2016-12-14 16:32] VITALS: BP 125/60
[2016-12-15] MEDS ORDERED: NAMENDA XR PO SCH (10:00)
== END 2016-12-14 19:30 | DRG 808 ==
LOC: ED 17:39 → 3A 23:26
PROVIDERS: ADMIT Internal Medicine; ATTEND Hospitalist
PROC: 30233N1 Transfusion of Nonautologous Red Blood Cells into Peripheral Vein, Percutaneous Approach (ICD-10-PCS; principal; 2016-12-02)
PROC: 5A1D60Z (ICD-10-PCS; 2016-12-02)
PROC: 05PY33Z Removal of Infusion Device from Upper Vein, Percutaneous Approach (ICD-10-PCS; 2016-12-14)
PROC: 0JPT0XZ Removal of Tunneled Vascular Access Device from Trunk Subcutaneous Tissue and Fascia, Open Approach (ICD-10-PCS; 2016-12-14)
DX: D61.818 Other pancytopenia (principal); N17.0 Acute kidney failure with tubular necrosis; I21.4 Non-ST elevation (NSTEMI) myocardial infarction; N18.6 End stage renal disease; I42.9 Cardiomyopathy, unspecified; I50.22 Chronic systolic (congestive) heart failure; I47.1 Supraventricular tachycardia; I13.0 Hypertensive heart and chronic kidney disease with heart failure and stage 1 through stage 4 chronic kidney disease, or unspecified chronic kidney disease; E78.5 Hyperlipidemia, unspecified; I25.10 Atherosclerotic heart disease of native coronary artery without angina pectoris; D63.1 Anemia in chronic kidney disease; I34.0 Nonrheumatic mitral (valve) insufficiency; I95.9 Hypotension, unspecified; F03.90 Unspecified dementia, unspecified severity, without behavioral disturbance, psychotic disturbance, mood disturbance, and anxiety; E83.39 Other disorders of phosphorus metabolism; E83.42 Hypomagnesemia; Z91.018 Allergy to other foods; Z90.710 Acquired absence of both cervix and uterus; Z82.49 Family history of ischemic heart disease and other diseases of the circulatory system; I25.2 Old myocardial infarction; Z98.61 Coronary angioplasty status; Z99.2 Dependence on renal dialysis; Z74.01 Bed confinement status; Z86.73 Personal history of transient ischemic attack (TIA), and cerebral infarction without residual deficits
CPT/HCPCS: 36415; 36430; 71010; 80048; 80053; 80061; 82270; 82550; 82553; 82570; 82607; 82728; 82747; 82962; 83550; 83615; 83735; 83880; 84100; 84165; 84484; 85025; 85027; 85045; 85610; 85730; 86850; 86900; 86901; 86920; 93005; 93010; 94640; 96374; A9270-GY; J0885; J1644; J1940; J3475; J7030; J7040; P9016

== ENCOUNTER 2017-01-16 09:00 | Emergency (ER) | payer MEDICARE ==
[2017-01-16] MEDS ORDERED: ADRENALIN ONE (09:02)
--- NOTE | 2017-01-16 09:11 | Emergency Department Report ---
HPI - General Chief Complaint: Cardiac Arrest/CPR Time Seen by Provider: 01/16/17 09:00 - HPI HPI: The patient is a 71-year-old female presents for management in cardiac arrest. EMS reports living facility staff found the patient unresponsive approximately 25-30 minutes prior to the patient's arrival to the ED. They also stated the patient was found to have arrest of breathing and in asystole on their arrival to the scene. They immediately initiated CPR and intubated the patient. The patient remained in asystole throughout transport to the ED, despite multiple rounds of CPR ACLS medications given to the patient. ED Past Medical Hx - Past Medical History Hx Hypertension: Yes (EF 10-15%, LVH) Hx Heart Attack/AMI: Yes (NSTEMI) Hx Renal Disease: Yes (Stage 3 CKD) Hx Sickle Cell Disease: No Hx Asthma: No Hx COPD: No Hx Dementia: Yes - Surgical History Additional Surgical History: Hysterectomy - Social History Smoking Status: Never Smoker - Medications Home Medications: Home Medications Medication Instructions Recorded Confirmed Last Taken Type Alendronate Sodium [Fosamax] 70 mg PO QWEEK #0 02/25/15 12/02/16 1 Day Ago History Calcium Carbonate/Vitamin D3 1 tab PO DAILY #0 02/25/15 12/02/16 1 Day Ago History [Calcium 500-Vit D3 200 Tablet] Hydralazine HCl [Apresoline TAB] 50 mg PO TID #0 02/25/15 12/02/16 1 Day Ago History Potassium Chloride [Klor-Con M20] 20 meq PO DAILY 02/25/15 12/02/16 1 Day Ago History Valsartan 320 mg PO DAILY 02/25/15 12/02/16 1 Day Ago History amLODIPine [Norvasc] 10 mg PO DAILY #0 02/25/15 12/02/16 1 Day Ago History Aspirin [Aspirin BABY CHEW TAB] 81 mg PO QDAY tab.chew 11/25/16 12/02/16 Unknown Rx AtorvaSTATin [Lipitor] 40 mg PO QHS tablet 11/25/16 12/02/16 Unknown Rx Carvedilol [Coreg] 50 mg PO BID tablet 11/25/16 12/02/16 Unknown Rx Clopidogrel [Plavix] 75 mg PO QDAY tablet 11/25/16 12/02/16 Unknown Rx ISOSORBIDE MONOnitrate [Imdur ER] 30 mg PO QDAY tablet 11/25/16 12/02/16 Unknown Rx Ipratropium/Albuterol Sulfate 1 ampul IH TIDRT ampul.neb 11/25/16 12/02/16 Unknown Rx [DUONEB *Not for PRN Use*] Memantine Xr [Namenda Xr] 14 mg PO QDAY cap 11/25/16 12/02/16 Unknown Rx Pantoprazole [Protonix TAB] 40 mg PO QDAY tablet 11/25/16 12/02/16 Unknown Rx Sennosides/Docusate [Senokot S] 2 tab PO QHS tablet 11/25/16 12/02/16 Unknown Rx ALBUTEROL NEB's [Proventil 0.083% 2.5 mg IH Q4HRT PRN #30 nebu 12/09/16 Unknown Rx NEBS] Acetaminophen [Acetaminophen TAB] 650 mg PO Q4H PRN #30 tablet 12/09/16 Unknown Rx Bisacodyl [Dulcolax suppos] 10 mg [place] QDAY PRN #30 supp.rect 12/09/16 Unknown Rx Epoetin Rahul 10,000 Unit [Procrit] 10,000 unit SUB-Q TuFr@1000 vial 12/09/16 Unknown Rx Heparin 5,000 unit IV DAIANA PRN #30 vial 12/09/16 Unknown Rx Ferrous Gluconate [Iron 236 MG tab] 236 mg PO DAILY #30 tablet 12/14/16 Unknown Rx ED Review of Systems ROS: Stated complaint: CARDIAC ARREST Other details as noted in HPI Comment: Unobtainable due to pts medical conditions (unreponsive) Physical Exam - Physical Exam Physical Exam: Physical Exam: General: well-nourished, well-developed Head: Normocephalic, atraumatic Eyes: Pupils were fixed and dilated, unresponsive to light ENT: ET tube present in mouth Neck: no appreciable carotid bruit or thrill Respiratory: Breath sounds equal with bagging/assisted ventilations Cardio: No distal pulses, extremities cold to touch Abdomen: soft abdomen, no obvious distention, no epigastric breath sounds with assisted ventilation Musc: No pitting edema Skin: No rash Heme/lymph: no obvious bruising/echymosis Neuro: Patient unresponsive to verbal or painful stimuli, no abnormal tonicity or posturing ED Medical Decision Making - Medical Decision Making Patient arrived at 8:56 The patient was seen and examined by myself. The patient received multiple rounds of CPR ACLS medications in route via EMS. The patient is placed on a fixture maker and continuous pulse ox. On initial evaluation, the patient was found to be unresponsive in cardiac arrest. Initial monitor rhythm reveals asystole. CPR was continued and the patient is given epinephrine. Despite multiple rounds of CPR and ACLS medications given to the patient, the patient remained without pulse and in cardiac arrest. As the patient has wide and fixed dilated pupils bilaterally, and has been in cardiac arrest for greater than 30 minutes, the patient has very poor chance of return of spontaneous circulation. The resuscitation team was queried regarding additional resuscitation efforts. No further ideas were volunteered. The resuscitation team agreed that best efforts to resuscitate the patient have been made. The resuscitation code is discontinued and the patient is pronounced . Family members are informed of the patient's passing. They are allowed to me with the patient's body subsequently. Critical care attestation.: If time is entered above; I have spent that time in minutes in the direct care of this critically ill patient, excluding procedure time. ED Disposition Clinical Impression: Cardiac arrest Disposition: DC-20 Is pt being admited?: No Does the pt Need Aspirin: No Condition: Poor Referrals: KALEY OVALLE MD [Primary Care Provider] - 3-5 Days Time of Disposition: 09:10
== END 2017-01-16 12:15 ==
LOC: ED 09:00
DX: I46.9 Cardiac arrest, cause unspecified (principal); I10 Essential (primary) hypertension; F03.90 Unspecified dementia, unspecified severity, without behavioral disturbance, psychotic disturbance, mood disturbance, and anxiety; I25.2 Old myocardial infarction
CPT/HCPCS: 92950; 99285; J0171